=== PATIENT | female | born 1960 | race Caucasian/White ===

== ENCOUNTER 2017-04-17 10:22 | Inpatient (IN) | payer MEDICARE, SELFPAY ==
[2017-03-01 09:34] VITALS: BP 112/74; BMI 39.6
[2017-04-10 13:26] VITALS: BP 121/78; PULSE 66; RESP 18; TEMP 36.8; O2SAT 96; BMI 39.9
--- NOTE | 2017-04-10 13:43 | SDCEKG_ITS ---
Test Reason : Blood Pressure : / mmHG Vent. Rate : 067 BPM Atrial Rate : 067 BPM P-R Int : 122 ms QRS Dur : 082 ms QT Int : 434 ms P-R-T Axes : 037 034 044 degrees QTc Int : 458 ms Normal sinus rhythm Low voltage QRS Borderline ECG Confirmed by CELIO BORGES, ESTEVAN ([id number]), offline editor HERLINDA LEON ([id number]) on 04/12/2017 11:31:47 AM Referred By: Howard Ramachandran Confirmed By:ESTEVAN PICKENS MD
[2017-04-10 15:29] LABS: Anion Gap 8 (5-15); BUN 11 mg/dL (7-18); BUN/Creat Ratio 15.2 RATIO (10-20); Calcium,Total 8.8 mg/dL (8.5-10.1); Chloride 105 mmol/L (98-107); Creatinine, Serum 0.73 mg/dL (0.55-1.02); EST Glomerular Filtration Rate 87 mL/min (>60); Est Glom Filt Rate - Afr Amer 106 mL/min (>60); Estimated Creatinine Clearance 60.34 ml/min; Glucose 148 mg/dL (70-110); Potassium 3.7 mmol/L (3.5-5.1); Sodium Level 137 mmol/L (136-145); Thyroid Stim Hormone (TSH) 0.13 uIU/mL (0.358-3.74)
[2017-04-10 16:10] LABS: Hematocrit 35.9 % (37-47); Hemoglobin 11.5 g/dl (12.0-15.0); Mean Corpuscular Hgb 26.6 pg (27.0-32.0); Mean Corpuscular Volume 83.1 fL (81-99); Mean Platelet Vol. 10.6 fl (6.2-12.0); Platelet Count 310 K/mm3 (150-450); RBC Distribution Width CV 14.5 % (11.6-14.6); Red Blood Count 4.32 M/mm3 (4.2-5.4); White Blood Count 8.3 K/mm3 (4.4-11.0)
[2017-04-10 16:16] LABS: Scan Indicated on CBC? Y/N NO
[2017-04-17] VITALS (13 sets, daily range): BP systolic 100–140; BP diastolic 52–71; PULSE 63–88; RESP 16–18; TEMP 35.9–36.7; O2SAT 92–99; BMI 39.9
[2017-04-17] MEDS: oxyCODONE HCl Cr 10 MG Tablet PO (11:16)
--- NOTE | 2017-04-17 12:02 | RAD_ITS ---
XR Knee 1 or 2 Views INDICATION: POST OP LEFT KNEE COMPARISON: None TECHNIQUE: 2 views of the left knee FINDINGS: There is evidence of a left total knee arthroplasty with components in expected position. Air is seen in the joint space, compatible with recent surgery. RAD/Knee 1 or 2 Views IMPRESSION: Left total knee arthroplasty with components in expected position. at 1716 Reported and signed by: Jacqueline Hodge MD Electronically Signed: Jacqueline Hodge MD at 16:15 EST Tel , Service support ,
--- NOTE | 2017-04-17 12:10 | KNEE_PTH ---
PATIENT: JAMIE WALSH LOC: [facility] U#:[id number] AGE/SX: 56/F ROOM: [facility] RE04/17/[address]: Howard Ramachandran DO : 1960 BED: 1 DIS: 04/20/2017 SPEC #: [id number] RECD: 04/18/17 11:04 STATUS: CHANTELLE RANJAN #: [id number] JOAO: 04/17/17 12:[address]: Howard Ramachandran DEPT: SURGICAL PATHOLOGY RECD BY: Darian Park ENTERED: 04/18/17 12:29 SP TYPE: TOTAL KNEE OTHR DR: Dr. Dawn Rivera MD Tissues: Knee, NOS Procedures: Decalcification bone/plaque Surgery Specimen Level IV HEADER OPERATION: Total knee replacement PRE-OP DIAGNOSIS: Osteoarthritis left knee, chronic pain left knee TISSUE SUBMITTED: Bone and tissue left knee MICROSCOPIC DIAGNOSIS Bone and soft tissue of left knee, total knee resection: Degenerative joint disease. AM:steve 04/23/17 MICROSCOPIC DESCRIPTION Slides are reviewed. GROSS DESCRIPTION Received is one container designated bone and tissue left knee. The specimen consists of multiple fragments of sanchez-yellow bone measuring in aggregate 11 x 8 x 3 cm. No soft tissue is identified. A number of bony fragments contain articular surfaces consistent with tibial plateau and femoral condyle and displaying prominent osteophyte formation and bone erosion. Manager Knowledge sections are submitted in one cassette after decalcification. / SJ:steve 04/18/17 TC:5 CPT: 26196, 39068
[2017-04-17] MEDS: Cefazolin 2 GM in 0.9% Normal Saline 100 ML IV (14:40)
--- NOTE | 2017-04-17 15:54 | CPS ---
Pt not in room at this time. Incentive spirometer at bedside.
--- NOTE | 2017-04-17 16:35 | PCM.IMDPSTOP ---
Immediate Post-Op Note Date of Procedure: 04/17/17 Primary Surgeon/Physician: Howadr Ramachandran DO commercial attorney: Mely Whitehead Pre-Operative Diagnosis: Left knee osteoarthritis Post-Operative Diagnosis: Same as above Surgery/Procedure Performed:: Total knee arthroplasty using the [employer] triathlon system press-fit. Description of Surgical Findings:: See dictation Estimated Blood Loss: 50 Specimen's removed: Bone cuts Type of Anesthesia:: Spinal - Admit VTE Documentation VTE Present on Admission: No VTE Mechan Device Prophylaxis: SCD's, Knee High JOSE DE JESUS Hose VTE Pharm Prophylaxis ordered?: Yes
--- NOTE | 2017-04-17 16:36 | PCM.OPRPT ---
Report of Operation Date of Procedure: 04/17/17 Pre-Operative Diagnosis: Left knee osteoarthritis Post-Operative Diagnosis: Same as above Surgery/Procedure Performed:: Total knee arthroplasty using the [employer] triMatter and Formlon system press-fit. Description of Surgical Findings:: The 6-year-old female with recalcitrant left knee pain that failed nonoperative management to include NSAIDs activity modifications physical therapy and injections. Having failed conservative measures patient elected for operative intervention. Patient was medically cleared by pulmonology and cardiology. She was subsequent met in the holding area where a timeout took place to identify patient up procedure limb. Patient received 2 g Ancef. She had a well-placed tourniquet left proximal thigh after successful spinal anesthesia. She was then prepped and draped in usual fashion. Patient's left lower extremity was elevated Esmarch used for exsanguination tourniquet was increased to 250 mmHg for roughly 70 minutes. Patient had a standard midline incision made from the tibial tubercle moving proximally 2 fingerbreadths above the patella. She then underwent a standard medial parapatellar approach. She had a large return effusion. Patient had hypertrophic synovial fat pad in the suprapatellar pouch and inferiorly. These were resected using standard technique. Patient then underwent a small posterior medial release. At that point time the intramedullary elaina was placed for our distal femoral cut into the intramedullary canal using standard technique. We used 8 mm of difficult distal femoral resection with 6? of valgus cut. This was done using standard technique. We subsequently sized to a size 4. However the patient just did not look like a size 4. Initial cuts were performed. Reevaluated the anterior cortex and felt that a size 3 component would work very well. We cut to a size 3. This was done using standard technique. We then turned our attention to sizing the tibia. We elected to take 3 mm off the medial plateau. This was done using standard technique after appropriate alignment check. We used a CR technique. Standard cut was performed. Leg was then brought out to full extension and the remnant menisci were resected. Alignment elaina showed good mechanical axis and alignment at 0 30 and 90? with no flexion extension gaps. At that point time femoral component was placed along with the tibial tray which was a size 3. We had good overall mechanical alignment. 9 mm spacer was initially introduced felt a little bit of hyperextension [address] We had good overall alignment and tracking. Tibial tray was then seated using standard technique femoral component removed and keel punch placed. Secondary punch was also placed in anticipation of a press-fit component. We then turned our attention to the patella. It was small using smallest component which I believe was a 25. It measured roughly 21 mm in overall thickness we took off 9. Drill holes were then placed using standard technique again anticipation of a press-fit component. At that point time the wounds were copiously irrigated and excess debris was removed. We then placed our tibial tray impacted using standard technique. Femoral component was then impacted using standard technique again in a press-fit fashion. 9 mm spacer was introduced. We upsized to an 11 and rechecked overall mechanical alignment. We had no flexion extension gaps and good mechanical alignment at 0 30? and 90? of flexion extension. At that point time we were evaluated the patella. With a small blowout due to the small size of her patella and elected at that point time having already opened up the press-fit patella to undergo an cemented in place. The other components had Nathaniel been impacted using press-fit technique with good fixation. Please note that additional drill holes were placed throughout the cortex of the bone on the femoral and tibial side to help with bio ingrowth. Cement was then prepared the back table using standard technique. Patella component was then seated using standard technique to allow the cement to cure. We then moved the leg through a series of range of motion with excellent overall patella tracking and I did not feel lateral release was required. Any excess debris was removed and the wound was copiously irrigated. We then closed in a layer technique with the proximal third being closed with the leg in full extension of the distal two thirds closed with the knee in 30? of knee flexion. This was all done using #1 Vicryl. Soft tissues reapproximated with 2-0 Vicryl. Subcu Monocryl for the skin and associated Dermabond. She was then tested in the usual fashion. Tourniquet was let down after roughly 20 minutes. I was scrubbed and available time during our procedure. Patient be admitted to floor for 24 hours of IV antibiotics appropriate IV and p.o. pain medication. Early aggressive range of motion and DVT prophylaxis to include SCDs teds restarting her Plavix and aspirin on postop day 2. Patient will start aspirin tomorrow at 325 p.o. twice daily with appropriate GI prophylaxis. I was scrubbed and available all time for the operative procedure. There is no drains or complications. Implants included the [employer] triathlon press-fit total knee system with a 3 tibial tray 3 femur 11 mm CS Mckenzie 25 believe 25 tibia 29 patella button which was ultimately cemented. patient services assistant: Mely Whitehead Type of Anesthesia:: Spinal Specimen's removed: Bone cuts Estimated Blood Loss (mL): 50 Grafts/Implants Used: Striker triathlon press-fit 3 femur, 3 tibia, 11 mm CS, 25 patella button - Complications None - Admit VTE Documentation VTE Present on Admission: No VTE Mechan Device Prophylaxis: SCD's, Knee High JOSE DE JESUS Hose VTE Pharm Prophylaxis ordered?: Yes
[2017-04-17] MEDS: Senna/Docusate Sodium 1 Tablet 2 TABLET PO (19:59)
[2017-04-17] MEDS: Metoprolol Tartrate 50 MG Tablet PO (19:59)
[2017-04-17] MEDS: 0.9% NaCl Peripheral Flush Adult/Peds IV (20:01)
[2017-04-17] MEDS: Acetaminophen 500 MG Tablet 1000 MG PO (20:01)
[2017-04-17] MEDS: Atorvastatin Calcium 20 MG Tablet PO (20:01)
[2017-04-17] MEDS: Gabapentin 300 MG Capsule PO (20:01)
[2017-04-17] MEDS: Citalopram 20 MG Tablet PO (20:01)
[2017-04-17] MEDS: Cefazolin 1 GM/50 ML BAG IV (23:01)
[2017-04-18] VITALS (12 sets, daily range): BP systolic 95–127; BP diastolic 50–70; PULSE 71–86; RESP 16–18; TEMP 36.9–37.5; O2SAT 88–99
[2017-04-18] MEDS: Levothyroxine 100 MCG Tablet PO (06:23)
[2017-04-18] MEDS: Acetaminophen 500 MG Tablet 1000 MG PO ×3 (06:23→21:35)
[2017-04-18] MEDS: oxyCODONE 5 MG Tablet PO ×3 (06:23→17:54)
[2017-04-18] MEDS: Cefazolin 1 GM/50 ML BAG IV (06:35)
[2017-04-18 06:39] LABS: Hematocrit 30.7 % (37-47); Hemoglobin 9.5 g/dl (12.0-15.0); Mean Corp Hgb Conc 30.9 g/gl (32-36); Mean Corpuscular Hgb 26.5 pg (27.0-32.0); Mean Corpuscular Volume 85.5 fL (81-99); Mean Platelet Vol. 10.2 fl (6.2-12.0); Platelet Count 293 K/mm3 (150-450); RBC Distribution Width CV 14.9 % (11.6-14.6); RBC Distribution Width SD 44.3 fl (35.1-43.9); Red Blood Count 3.59 M/mm3 (4.2-5.4); White Blood Count 10.5 K/mm3 (4.4-11.0)
[2017-04-18 06:44] LABS: Scan Indicated on CBC? Y/N NO
[2017-04-18 06:45] LABS: Anion Gap 6 (5-15); BUN 16 mg/dL (7-18); BUN/Creat Ratio 18.5 RATIO (10-20); Calcium,Total 8.7 mg/dL (8.5-10.1); Chloride 106 mmol/L (98-107); Creatinine, Serum 0.86 mg/dL (0.55-1.02); EST Glomerular Filtration Rate 71 mL/min (>60); Est Glom Filt Rate - Afr Amer 86 mL/min (>60); Estimated Creatinine Clearance 51.22 ml/min; Glucose 131 mg/dL (74-106); Potassium 4.1 mmol/L (3.5-5.1); Sodium Level 142 mmol/L (136-145)
[2017-04-18] MEDS: Ondansetron 4 MG/2 ML Vial IV (06:45)
[2017-04-18] MEDS: 0.9% NaCl Peripheral Flush Adult/Peds IV (06:45)
--- NOTE | 2017-04-18 07:21 | PCM.PN.ORT ---
Subjective: Postop day 1 status post left total knee arthroplasty. No issues overnight. Await case management assistant evaluation for placement into the transitional care unit for custodial facility for rehab. Patient has resumed Plavix today and will start 325 mg of aspirin as her DVT prophylaxis. Vital signs remained stable. H&H is stable. No other fevers chills nausea vomiting chest pain or shortness of breath. Pain is currently controlled with the assistance of the pain blocks. - Physical Exam General: Alert, Oriented x3, Cooperative, No apparent distress Musculoskeletal: - - Dressing in place. No calf pain. Negative Homans. Range of motion 0-45 this early a.m. evaluation. Hardware well seated well-placed status post left total knee arthroplasty. Extensor mechanism intact. SCDs teds in place. H&H reviewed. Vital Signs Temp Pulse Resp BP Pulse Ox 98.4 F 71 18 103/50 L 99 04/18/17 02:19 04/18/17 04:00 04/18/17 02:19 04/18/17 02:19 04/18/17 02:19 Oxygen Flow Rate 2 Oxygen Delivery Method Nasal Cannula Weight: 204 lb 9.423 oz Body Mass Index (BMI) 39.9 Intake and Output for Last 24 Hours 04/16/17 04/17/17 04/18/17 23:59 23:59 23:59 Intake Total 1400 / 1400 688 / 688 Output Total 400 / 400 Balance 1400 / 1400 288 / 288 Laboratory Tests Past 24 Hrs 04/18/17 04/18/17 06:10 06:10 WBC 10.5 RBC 3.59 L Hgb 9.5 L Hct 30.7 L MCV 85.5 MCH 26.5 L MCHC 30.9 L RDW 14.9 H RDW Differential 44.3 H Plt Count 293 MPV 10.2 Sodium 142 Potassium 4.1 Chloride 106 Carbon Dioxide 30.0 Anion Gap 6 BUN 16 Creatinine 0.86 Estim Creat Clear Calc 51.22 Est GFR (MDRD) Af Amer 86 Est GFR (MDRD) Non-Af 71 BUN/Creatinine Ratio 18.5 Glucose 131 H Calcium 8.7 Assessment/Plan S1: Status post left total knee arthroplasty for osteoarthritis. History of cardiac stent placement. Plan: We will resume Plavix and change dosage of aspirin to 325 p.o. daily. GI prophylaxis has been added. Case management has been consulted for placement into the transitional care unit for her custodial facility rehab. Aggressive range of motion requested. Continue with aggressive pulmonary toileting as the patient is a history of pulmonary issues. If there are issues please contact me and I will contact Dr. Mane from the pulmonology service who is aware that the patient is in-house and if he is needed he is available. Any issues please contact me.
--- NOTE | 2017-04-18 07:54 | CASEMGMT ---
Social Work Note Referral from attending physician that pt is requesting placement at TCU. Will evaluate for appropriateness after PT/OT evaluations. Placed call to [facility] to see if there was any bed availability on Sunday. Will await a return phone call indicating bed availability. Plan: PATRIC DevineW
--- NOTE | 2017-04-18 08:52 | CASEMGMT ---
Social Work Note Call from [facility] stating that she is able to accept the pt. Transfer to ECF forms placed on chart for physician to complete. Face to face with the pt to discuss discharge planning and updated that TCU can accept on Sunday. Understanding expressed SW to continue to follow and assist with discharge planning. Plan: TCU for rehabilitation. PATRIC KowalskiW
[2017-04-18] MEDS: Furosemide 40 MG Tablet PO (09:36)
[2017-04-18] MEDS: Gabapentin 300 MG Capsule PO ×2 (09:36→17:53)
[2017-04-18] MEDS: Aspirin E.C. 325 MG Tablet PO ×2 (09:36→17:53)
[2017-04-18] MEDS: Senna/Docusate Sodium 1 Tablet 2 TABLET PO ×2 (09:37→21:35)
[2017-04-18] MEDS: Clopidogrel Bisulfate 75 MG Tablet PO (09:37)
[2017-04-18] MEDS: Magnesium Oxide 400 MG Tablet PO (09:37)
[2017-04-18] MEDS: Metoprolol Tartrate 50 MG Tablet PO ×2 (09:37→21:36)
[2017-04-18] MEDS: Famotidine 20 MG Tablet PO (09:37)
--- NOTE | 2017-04-18 09:52 | NURSING ---
pt c/o left calf pain to ot/pt staff-pt left calf is warmer and pt has + zeeshan sign, dr gee notified and he ordered an venous doppler lle but siggested to proceed with therapy until results
--- NOTE | 2017-04-18 09:53 | VDLE_ITS ---
Reason For Study: LEG SWELLING S/P tkr 2/6 Procedure LEFT Exam performed portable in patient room. GSV is normal. A preliminary report was called and/or faxed CFV is compressible, spontaneous, phasic, to [facility] nurse. competent, and demonstrates normal augmentation. FV is compressible, spontaneous, phasic, competent and demonstrates normal augmentation. POP V is compressible, spontaneous, phasic, competent and demonstrates normal augmentation. T/P Trunk is compressible. PTV is compressible. LT PerV is compressible. Interpretation Summary Deep veins of the left lower extremity are patent and compressible segmentally. There is no evidence of left lower extremity deep vein thrombosis. Valvular competence appears intact within the proximal deep venous system on the left . The left greater saphenous vein appears patent and compressible segmentally. Ordering Physician: Howard Ramachandran Referring Physician: Howard Ramachandran
[2017-04-18] MEDS: Citalopram 20 MG Tablet PO (21:35)
[2017-04-18] MEDS: Atorvastatin Calcium 20 MG Tablet PO (21:35)
[2017-04-19] VITALS (10 sets, daily range): BP systolic 104–145; BP diastolic 60–69; PULSE 74–103; RESP 16–18; TEMP 36.5–37.2; O2SAT 92–96
[2017-04-19] MEDS: oxyCODONE 5 MG Tablet PO ×2 (03:38→13:56)
[2017-04-19] MEDS: Acetaminophen 500 MG Tablet 1000 MG PO ×3 (05:44→21:54)
[2017-04-19] MEDS: Levothyroxine 100 MCG Tablet PO (05:44)
[2017-04-19 06:18] LABS: Hematocrit 28.9 % (37-47); Hemoglobin 9.1 g/dl (12.0-15.0); Mean Corp Hgb Conc 31.5 g/gl (32-36); Mean Corpuscular Hgb 26.7 pg (27.0-32.0); Mean Corpuscular Volume 84.8 fL (81-99); Mean Platelet Vol. 10.1 fl (6.2-12.0); Platelet Count 282 K/mm3 (150-450); RBC Distribution Width CV 14.9 % (11.6-14.6); RBC Distribution Width SD 44.5 fl (35.1-43.9); Red Blood Count 3.41 M/mm3 (4.2-5.4); Scan Indicated on CBC? Y/N NO; White Blood Count 10.2 K/mm3 (4.4-11.0)
[2017-04-19 06:51] LABS: Anion Gap 9 (5-15); BUN 15 mg/dL (7-18); BUN/Creat Ratio 16.7 RATIO (10-20); Calcium,Total 8.5 mg/dL (8.5-10.1); Chloride 102 mmol/L (98-107); EST Glomerular Filtration Rate 68 mL/min (>60); Est Glom Filt Rate - Afr Amer 83 mL/min (>60); Estimated Creatinine Clearance 48.94 ml/min; Glucose 130 mg/dL (74-106); Potassium 3.7 mmol/L (3.5-5.1); Sodium Level 139 mmol/L (136-145)
--- NOTE | 2017-04-19 07:48 | PCM.PN.ORT ---
Subjective: Postop day 2 status post left total knee arthroplasty. Patient doing well today. We are awaiting approval for transitional care unit transition. Otherwise tolerating regular diet. Patient still has some calf pain but her ultrasound was negative. Patient needs a work on stretching out the calf muscle. Some of the soreness potentially could be from the leg bar[place]ona during the procedure. No other shortness of breath noted at this time. - Physical Exam General: Alert, Oriented x3, Cooperative, No apparent distress Musculoskeletal: - - Alert and oriented ?3 in no acute distress. Appropriate eye contact and affect. Otherwise distal vascular intact. Patient will dorsiflex the foot although painful. Otherwise grossly the EHL anterior peroneals 5 out of 5. H&H is stable. Vital Signs Temp Pulse Resp BP Pulse Ox 98.8 F 87 18 110/60 94 04/19/17 03:27 04/19/17 03:58 04/19/17 03:27 04/19/17 03:27 04/19/17 03:27 Oxygen Flow Rate 2 Oxygen Delivery Method CPAP Weight: 204 lb 9.423 oz Body Mass Index (BMI) 39.9 Intake and Output for Last 24 Hours 04/17/17 04/18/17 04/19/17 23:59 23:59 23:59 Intake Total 1400 / 1400 688 / 688 700 / 700 Output Total 400 / 400 Balance 1400 / 1400 288 / 288 700 / 700 Laboratory Tests Past 24 Hrs 04/19/17 04/19/17 05:48 05:48 WBC 10.2 RBC 3.41 L Hgb 9.1 L Hct 28.9 L MCV 84.8 MCH 26.7 L MCHC 31.5 L RDW 14.9 H RDW Differential 44.5 H Plt Count 282 MPV 10.1 Sodium 139 Potassium 3.7 Chloride 102 Carbon Dioxide 28.0 Anion Gap 9 BUN 15 Creatinine 0.90 Estim Creat Clear Calc 48.94 Est GFR (MDRD) Af Amer 83 Est GFR (MDRD) Non-Af 68 BUN/Creatinine Ratio 16.7 Glucose 130 H Calcium 8.5 Assessment/Plan Assessment: Postop day 2 status post left total knee arthroplasty doing well. Plan: At this point time I have spoken with Dr. Blair about the patient's Plavix usage. We will hold the Plavix and continue with the aspirin 325 p.o. twice daily this should be not only cardioprotective but also be used as her DVT prophylaxis. Continue with SCDs teds early aggressive range of motion. Encourage the patient to start working on ankle pumps and towel stretches otherwise she will be at risk for getting a blood clot. We will continue to follow. Anticipate discharge to transitional care unit tomorrow. Any issues please contact me.
[2017-04-19] MEDS: Aspirin E.C. 325 MG Tablet PO ×2 (08:11→16:32)
[2017-04-19] MEDS: Senna/Docusate Sodium 1 Tablet 2 TABLET PO ×2 (08:11→21:54)
[2017-04-19] MEDS: Famotidine 20 MG Tablet PO (08:12)
[2017-04-19] MEDS: Gabapentin 300 MG Capsule PO ×2 (08:12→16:32)
[2017-04-19] MEDS: Magnesium Oxide 400 MG Tablet PO (08:12)
[2017-04-19] MEDS: Metoprolol Tartrate 50 MG Tablet PO ×2 (08:13→21:54)
[2017-04-19] MEDS: Furosemide 40 MG Tablet PO (08:13)
[2017-04-19] MEDS: Ascorbic Acid 500 MG Tablet 1000 MG PO (09:19)
[2017-04-19] MEDS: Multivitamins,Therapeutic Tablet 1 TABLET PO (09:20)
[2017-04-19] MEDS: Iron Polysaccharide Complex 150 MG CAPSULE PO (09:20)
[2017-04-19] MEDS: Atorvastatin Calcium 20 MG Tablet PO (21:54)
[2017-04-19] MEDS: Citalopram 20 MG Tablet PO (21:54)
[2017-04-20 02:30] VITALS: BP 140/68; PULSE 86; RESP 16; TEMP 37.3; O2SAT 96
[2017-04-20] MEDS: Acetaminophen 500 MG Tablet 1000 MG PO ×2 (05:44→13:17)
[2017-04-20] MEDS: Levothyroxine 100 MCG Tablet PO (05:44)
[2017-04-20 06:09] LABS: Hematocrit 27.2 % (37-47); Hemoglobin 8.3 g/dl (12.0-15.0); Mean Corp Hgb Conc 30.5 g/gl (32-36); Mean Corpuscular Hgb 25.9 pg (27.0-32.0); Mean Corpuscular Volume 84.7 fL (81-99); Mean Platelet Vol. 9.8 fl (6.2-12.0); Platelet Count 262 K/mm3 (150-450); RBC Distribution Width CV 14.8 % (11.6-14.6); RBC Distribution Width SD 44.4 fl (35.1-43.9); Red Blood Count 3.21 M/mm3 (4.2-5.4); White Blood Count 9.6 K/mm3 (4.4-11.0)
[2017-04-20 06:15] LABS: Scan Indicated on CBC? Y/N NO
[2017-04-20 06:44] LABS: Anion Gap 9 (5-15); BUN 10 mg/dL (7-18); BUN/Creat Ratio 13.9 RATIO (10-20); Calcium,Total 8.5 mg/dL (8.5-10.1); Chloride 103 mmol/L (98-107); Creatinine, Serum 0.72 mg/dL (0.55-1.02); EST Glomerular Filtration Rate 88 mL/min (>60); Est Glom Filt Rate - Afr Amer 106 mL/min (>60); Estimated Creatinine Clearance 61.18 ml/min; Glucose 115 mg/dL (74-106); Potassium 3.2 mmol/L (3.5-5.1); Sodium Level 140 mmol/L (136-145)
[2017-04-20 08:14] VITALS: PULSE 77
[2017-04-20] MEDS: Metoprolol Tartrate 50 MG Tablet PO (08:14)
[2017-04-20] MEDS: Ascorbic Acid 500 MG Tablet 1000 MG PO (08:14)
[2017-04-20] MEDS: Furosemide 40 MG Tablet PO (08:14)
[2017-04-20] MEDS: Aspirin E.C. 325 MG Tablet PO (08:14)
[2017-04-20] MEDS: Multivitamins,Therapeutic Tablet 1 TABLET PO (08:14)
[2017-04-20] MEDS: Gabapentin 300 MG Capsule PO (08:14)
[2017-04-20] MEDS: Senna/Docusate Sodium 1 Tablet 2 TABLET PO (08:15)
[2017-04-20] MEDS: Famotidine 20 MG Tablet PO (08:15)
[2017-04-20] MEDS: Magnesium Oxide 400 MG Tablet PO (08:15)
[2017-04-20] MEDS: Iron Polysaccharide Complex 150 MG CAPSULE PO (08:15)
[2017-04-20 08:17] VITALS: BP 97/57; PULSE 77; RESP 16; TEMP 36.5; O2SAT 94
--- NOTE | 2017-04-20 08:43 | PCM.DC.BLA ---
Discharge Summary Date of Admission: 04/17/17 Date of Discharge: 04/20/17 Summary: 56-year-old female status post left total knee arthroplasty. Patient was met in the floor for 24 hours of IV antibiotics appropriate IV and p.o. pain medication. DVT prophylaxis included SCDs teds early aggressive range of motion and 325 p.o. twice daily of aspirin with GI prophylaxis. Patient tolerated regular diet was amatory physical therapy. No other sniffing fevers chills nausea vomiting chest pain or shortness of breath. [facility] for [facility] and will move on to the transitional care unit at this point time. Assessment: Postop day 3 status post left total knee arthroplasty. Doing well. Plan: At this point time will continue with aspirin for DVT prophylaxis. Patient will hold her Plavix for the next 14 days. If the patient were to become symptomatic with GI upset transition to one aspirin per day but continue with GI prophylaxis either H2 mayo or PPI. I have added cater to the patient's medications as her potassium was down slightly. She can continue with 10 mEq p.o. twice daily. The patient remains in the transitional care unit over the next 2 weeks I will follow her there and do her wound check at that time. Her dressing remains in place 5-7 days from date of surgery. The patient may shower at this time. Do not submerge wound. Continue with aggressive range of motion and calf pumps. Continue with JOSE DE JESUS hose if available on the floor. Any issues please contact me.
--- NOTE | 2017-04-20 10:21 | CASEMGMT ---
Social Work Physician discharged pt on this date. Message left for [facility] in [facility] that pt is ready for d/c and orders faxed. Met with pt in room and pt made aware of d/c today. Pt is aware and agreeable to transfer to TCU today. Pt states her is also aware and does not need called. RN notified that she can arrange for transfer time. No further SW needs. Plan: TCU today [facility] Elizabeth
[2017-04-20 11:03] VITALS: BP 116/61; PULSE 68; RESP 16; TEMP 37; O2SAT 94
--- NOTE | 2017-04-20 14:33 | NURSING ---
called report to tcu. waiting on room to be cleaned.
== END 2017-04-20 15:18 | disposition skilled nursing facility (03) | DRG 470 ==
LOC: ACINP 10:23 → MS3 12:34
PROVIDERS: Anesthesiology; Admitting Provider Orthopaedic Surgery; Family Provider Family Medicine; PCP Family Medicine; Visit Provider Orthopaedic Surgery
PROC: 0SRD0J9 Replacement of Left Knee Joint with Synthetic Substitute, Cemented, Open Approach (ICD-10-PCS; CPT 27447; principal; 2017-04-17 11:45)
DX: M17.12 Unilateral primary osteoarthritis, left knee (principal); E66.01 Morbid (severe) obesity due to excess calories; I27.20 Pulmonary hypertension, unspecified; F17.211 Nicotine dependence, cigarettes, in remission; I10 Essential (primary) hypertension; E78.5 Hyperlipidemia, unspecified; J44.9 Chronic obstructive pulmonary disease, unspecified; G47.30 Sleep apnea, unspecified; K21.9 Gastro-esophageal reflux disease without esophagitis; E03.9 Hypothyroidism, unspecified; Z79.899 Other long term (current) drug therapy; Z68.39 Body mass index [BMI] 39.0-39.9, adult
CPT/HCPCS: 36415; 73560; 80048; 84443; 85027; 87081; 88305; 88311; 93005; 93971; 94640; 97110; 97116; 97162; 97166; 97530; 97535; J7120; A4216; J2405

== ENCOUNTER 2017-04-20 15:23 | Inpatient (IN) | payer MEDICARE, SELFPAY ==
[2017-04-20 11:03] VITALS: BP 116/61
[2017-04-20 15:30] VITALS: BP 111/58; PULSE 75; RESP 18; TEMP 36.9; O2SAT 91
--- NOTE | 2017-04-20 15:39 | NURSING ---
pt arrived from [facility] via bed lt total knee replacement
[2017-04-20 16:12] VITALS: BMI 34.7
[2017-04-20 16:13] VITALS: BMI 34.7
--- NOTE | 2017-04-20 16:27 | PCM.HP.STD ---
Problem List (1) Osteoarthritis of left knee Status: Chronic (2) Coronary artery disease Status: Chronic (3) Tobacco abuse Status: Chronic (4) Back pain Status: Chronic (5) Hypertension Status: Chronic (6) Hyperlipidemia Status: Chronic (7) Non-ST elevated myocardial infarction (non-STEMI) Status: Chronic (8) Hypothyroidism Status: Chronic (9) GERD (gastroesophageal reflux disease) Status: Chronic History of Present Illness Date of Admission: 04/20/17 Chief Complaint: Here for rehabilitation, strengthening, prior to discharge home alone. The patient is a 56 year old Female with below past medical history hospitalized for left total knee arthroplasty 04/17/[address] Ramachandran. 04/18/2017 Doppler ultrasound of legs negative for DVT. 04/20/2017 Admit to TCU for rehabilitation, strengthening, prior to discharge home alone. Past Medical History Past Medical History (Chronic Problems): Chronic Problems (Last Reviewed 03/21/17 @ 16:28 by Tere Diaz) Osteoarthritis of left knee (Chronic) Coronary artery disease (Chronic) Tobacco abuse (Chronic) Back pain (Chronic) Pulmonary hypertension (Chronic) RVSP 31 mmHg Stage 2 moderate COPD by GOLD classification (Chronic) FEV1 65% Morbid obesity (Chronic) Depression (Chronic) Hypertension (Chronic) Hyperlipidemia (Chronic) Nicotine dependence, cigarettes, in remission (Chronic) Other peripheral vascular disease (Chronic) Fatigue (Chronic) Non-ST elevated myocardial infarction (non-STEMI) (Chronic) Long-term use of high-risk medication (Chronic) Chest pain (Chronic) OA (osteoarthritis) of knee (Chronic) PALOMARES (dyspnea on exertion) (Chronic) Hypersomnia (Chronic) Sleep apnea (Chronic) Supraventricular tachycardia (Chronic) Hypothyroidism (Chronic) GERD (gastroesophageal reflux disease) (Chronic) Chronic back pain (Chronic) Allergies No Known Allergies Allergy (Verified 04/10/17 13:17) Home Medications: Ambulatory Orders Medication Instructions Recorded Levothyroxine [Synthroid] 100 mcg PO DAILY 04/17/14 Magnesium Oxide [Mag-Ox 400] 400 mg PO DAILY 04/17/14 Metoprolol Tartrate [Lopressor 50 mg PO BID 04/17/14 (beta mayo)] Simvastatin [Zocor] 40 mg PO QHS 04/17/14 Gabapentin [Gralise] 300 mg PO BID 04/29/15 Albuterol Inhaler [Ventolin Hfa] 1 - 2 puff INHALATION Q4H PRN PRN 07/11/16 Citalopram [Celexa] 20 mg PO QHS 07/11/16 Nitroglycerin [Nitrostat] 0.4 mg SUBLINGUAL Q5M PRN #1 bottle 01/04/17 furosemide 40 mg tablet 40 mg PO QDAY 02/26/17 Glycopyrrolate/Formoterol Fum 2 puff INHALATION BID 04/10/17 [Bevespi Aerosphere Inhaler] Docusate Sodium [Colace] 100 mg PO BID PRN PRN #10 cap 04/18/17 Oxycodone HCl/Acetaminophen 1 - 2 tab PO Q4H PRN PRN #60 tab 04/18/17 [Percocet 5/325] ProMETHAzine [Phenergan] 25 mg PO Q4H PRN PRN #10 tab 04/18/17 Aspirin E.C. [Ecotrin] 325 mg PO BID 04/20/17 Famotidine [Pepcid] 20 mg PO BID 04/20/17 Surgical History: total knee arthroplasty - Left., - - Tubal ligation, left knee surgery. 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 Lives: Spouse/ Significant Other Smoking Status: Former smoker Tobacco Use: Non-smoker Alcohol: None Drugs: None - *Family History Maternal History Items: No pertinent history Paternal History Items: No pertinent history Review of Systems Constitutional: Denies: Chills, Fever, Weight Change HEENT: Denies: Head Aches, Sinus Congestion, Sinus Drainage Cardiovascular: Denies: Chest Pain, Palpitations Respiratory: Denies: Cough, Shortness of breath at rest, Sputum production Gastrointestinal: Denies: Abdominal Pain, Nausea, Vomiting Genitourinary: Denies: Dysuria Musculoskeletal: Denies: Joint Pain, Joint Tenderness Skin: Denies: Rash, Wounds Neurological: Denies: Numbness, Tingling, Focal weakness Psychiatric: Denies: Anxiety, Depression, Homicidal Ideations, Suicidal Ideations Hematologic/ Lymphatic: Denies: Easy Bruising, Easy Bleeding VTE Information - Inpt Only VTE Present on Admission: No VTE Mechan Device Prophylaxis: SCD's, Knee High JOSE DE JESUS Hose VTE Pharm Prophylaxis ordered?: Yes - Physical Exam General: Alert, Oriented x3, Cooperative HEENT: Atraumatic, PERRLA, EOMI, Normocephalic Neck: Supple, No JVD, Negative Carotid Bruits Lungs: Clear to auscultation, Normal air movement Cardiovascular: Regular rate, No murmurs Abdomen: Bowel Sounds Present, Soft, Non Tender Extremities: No edema, Capillary Refill Less than 3 Seconds Skin: No rashes, No breakdown, Incision - Left knee clean, dry, intact. Musculoskeletal: No Tenderness to Palpation of Joints or Extremities Neurological: Cranial nerves II-XII grossly intact Psych/Mental Status: Normal Affect, Appropriate Vital Signs BP 116/61 04/20/17 11:03 Weight: 94.149 kg Body Mass Index (BMI) 34.7 Assessment/Plan 56 year old female with below past medical history hospitalized for left total knee arthroplasty with Dr. Ramachandran 04/17/2017, admitted to TCU for rehabilitation, strengthening, prior to discharge home alone. Debility - PT/OT. Pain - Tylenol 1000MG Q8H PRN mild pain, Oxycodone 10MG Q4H severe pain. Bowel - Miralax 17GM daily, Senna/colace 2 tablets BID, Dulcolax 10MG PO daily PRN. Pneumonia vaccination - Administer Prevnar 13 and/or Pneumovax 23 as necessary. DVT prophylaxis - Aspirin 325MG BID. COPD - Glycopyrrolate 2 puffs BID, Albuterol 1-2 Puff Q4H PRN. Depression - Citalopram 20MG QHS. GERD - Famotidine 20MG BID. Edema - Lasix 40MG daily. Neuropathic pain - Gabapentin 300MG BID. Hypothyroidism - Levothyroxine 100MCG daily. Hypomagnesemia - Magnesium Oxide 400MG daily. Coronary Artery Disease status post stent - Metoprolol 50MG BID, NTG 0.4MG as needed. Nausea - Phenergan 25MG Q4H PRN. Hyperlipidemia - Atorvastatin 40MG QHS.
--- NOTE | 2017-04-20 16:41 | HP.PCM_ITS ---
Problem List (1) Osteoarthritis of left knee Status: Chronic (2) Coronary artery disease Status: Chronic (3) Tobacco abuse Status: Chronic (4) Back pain Status: Chronic (5) Hypertension Status: Chronic (6) Hyperlipidemia Status: Chronic (7) Non-ST elevated myocardial infarction (non-STEMI) Status: Chronic (8) Hypothyroidism Status: Chronic (9) GERD (gastroesophageal reflux disease) Status: Chronic History of Present Illness Date of Admission: 04/20/17 Chief Complaint: Here for rehabilitation, strengthening, prior to discharge home alone. The patient is a 56 year old Female with below past medical history hospitalized for left total knee arthroplasty 04/17/[address] Ramachandran. 04/18/2017 Doppler ultrasound of legs negative for DVT. 04/20/2017 Admit to TCU for rehabilitation, strengthening, prior to discharge home alone. Past Medical History Past Medical History (Chronic Problems): Chronic Problems (Last Reviewed 03/21/17 @ 16:28 by Tere Diaz) Osteoarthritis of left knee (Chronic) Coronary artery disease (Chronic) Tobacco abuse (Chronic) Back pain (Chronic) Pulmonary hypertension (Chronic) RVSP 31 mmHg Stage 2 moderate COPD by GOLD classification (Chronic) FEV1 65% Morbid obesity (Chronic) Depression (Chronic) Hypertension (Chronic) Hyperlipidemia (Chronic) Nicotine dependence, cigarettes, in remission (Chronic) Other peripheral vascular disease (Chronic) Fatigue (Chronic) Non-ST elevated myocardial infarction (non-STEMI) (Chronic) Long-term use of high-risk medication (Chronic) Chest pain (Chronic) OA (osteoarthritis) of knee (Chronic) PALOMARES (dyspnea on exertion) (Chronic) Hypersomnia (Chronic) Sleep apnea (Chronic) Supraventricular tachycardia (Chronic) Hypothyroidism (Chronic) GERD (gastroesophageal reflux disease) (Chronic) Chronic back pain (Chronic) Allergies No Known Allergies Allergy (Verified 04/10/17 13:17) Home Medications: Ambulatory Orders Medication Instructions Recorded Levothyroxine [Synthroid] 100 mcg PO DAILY 04/17/14 Magnesium Oxide [Mag-Ox 400] 400 mg PO DAILY 04/17/14 Metoprolol Tartrate [Lopressor 50 mg PO BID 04/17/14 (beta mayo)] Simvastatin [Zocor] 40 mg PO QHS 04/17/14 Gabapentin [Gralise] 300 mg PO BID 04/29/15 Albuterol Inhaler [Ventolin Hfa] 1 - 2 puff INHALATION Q4H PRN PRN 07/11/16 Citalopram [Celexa] 20 mg PO QHS 07/11/16 Nitroglycerin [Nitrostat] 0.4 mg SUBLINGUAL Q5M PRN #1 bottle 01/04/17 furosemide 40 mg tablet 40 mg PO QDAY 02/26/17 Glycopyrrolate/Formoterol Fum 2 puff INHALATION BID 04/10/17 [Bevespi Aerosphere Inhaler] Docusate Sodium [Colace] 100 mg PO BID PRN PRN #10 cap 04/18/17 Oxycodone HCl/Acetaminophen 1 - 2 tab PO Q4H PRN PRN #60 tab 04/18/17 [Percocet 5/325] ProMETHAzine [Phenergan] 25 mg PO Q4H PRN PRN #10 tab 04/18/17 Aspirin E.C. [Ecotrin] 325 mg PO BID 04/20/17 Famotidine [Pepcid] 20 mg PO BID 04/20/17 Surgical History: total knee arthroplasty - Left., - - Tubal ligation, left knee surgery. 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 Lives: Spouse/ Significant Other Smoking Status: Former smoker Tobacco Use: Non-smoker Alcohol: None Drugs: None - *Family History Maternal History Items: No pertinent history Paternal History Items: No pertinent history Review of Systems Constitutional: Denies: Chills, Fever, Weight Change HEENT: Denies: Head Aches, Sinus Congestion, Sinus Drainage Cardiovascular: Denies: Chest Pain, Palpitations Respiratory: Denies: Cough, Shortness of breath at rest, Sputum production Gastrointestinal: Denies: Abdominal Pain, Nausea, Vomiting Genitourinary: Denies: Dysuria Musculoskeletal: Denies: Joint Pain, Joint Tenderness Skin: Denies: Rash, Wounds Neurological: Denies: Numbness, Tingling, Focal weakness Psychiatric: Denies: Anxiety, Depression, Homicidal Ideations, Suicidal Ideations Hematologic/ Lymphatic: Denies: Easy Bruising, Easy Bleeding VTE Information - Inpt Only VTE Present on Admission: No VTE Mechan Device Prophylaxis: SCD's, Knee High JOSE DE JESUS Hose VTE Pharm Prophylaxis ordered?: Yes - Physical Exam General: Alert, Oriented x3, Cooperative HEENT: Atraumatic, PERRLA, EOMI, Normocephalic Neck: Supple, No JVD, Negative Carotid Bruits Lungs: Clear to auscultation, Normal air movement Cardiovascular: Regular rate, No murmurs Abdomen: Bowel Sounds Present, Soft, Non Tender Extremities: No edema, Capillary Refill Less than 3 Seconds Skin: No rashes, No breakdown, Incision - Left knee clean, dry, intact. Musculoskeletal: No Tenderness to Palpation of Joints or Extremities Neurological: Cranial nerves II-XII grossly intact Psych/Mental Status: Normal Affect, Appropriate Vital Signs BP 116/61 04/20/17 11:03 Weight: 94.149 kg Body Mass Index (BMI) 34.7 Assessment/Plan 56 year old female with below past medical history hospitalized for left total knee arthroplasty with Dr. Ramachandran 04/17/2017, admitted to TCU for rehabilitation, strengthening, prior to discharge home alone. * Debility - PT/OT. * Pain - Tylenol 1000MG Q8H PRN mild pain, Oxycodone 10MG Q4H severe pain. * Bowel - Miralax 17GM daily, Senna/colace 2 tablets BID, Dulcolax 10MG PO daily PRN. * Pneumonia vaccination - Administer Prevnar 13 and/or Pneumovax 23 as necessary. * DVT prophylaxis - Aspirin 325MG BID. * COPD - Glycopyrrolate 2 puffs BID, Albuterol 1-2 Puff Q4H PRN. * Depression - Citalopram 20MG QHS. * GERD - Famotidine 20MG BID. * Edema - Lasix 40MG daily. * Neuropathic pain - Gabapentin 300MG BID. * Hypothyroidism - Levothyroxine 100MCG daily. * Hypomagnesemia - Magnesium Oxide 400MG daily. * Coronary Artery Disease status post stent - Metoprolol 50MG BID, NTG 0.4MG as needed. * Nausea - Phenergan 25MG Q4H PRN. * Hyperlipidemia - Atorvastatin 40MG QHS.
[2017-04-20] MEDS: Famotidine 20 MG Tablet PO (17:43)
[2017-04-20] MEDS: Gabapentin 300 MG Capsule PO (17:43)
[2017-04-20] MEDS: Senna/Docusate Sodium 1 Tablet 2 TABLET PO (17:43)
[2017-04-20] MEDS: Aspirin E.C. 325 MG Tablet PO (17:43)
[2017-04-20 17:44] VITALS: BP 111/58; PULSE 75
[2017-04-20] MEDS: Metoprolol Tartrate 50 MG Tablet PO (17:44)
[2017-04-20] MEDS: oxyCODONE 5 MG Tablet 10 MG PO (21:27)
[2017-04-20] MEDS: Atorvastatin Calcium 20 MG Tablet PO (21:29)
[2017-04-20] MEDS: Citalopram 20 MG Tablet PO (21:29)
[2017-04-21 06:25] VITALS: PULSE 82; RESP 18; O2SAT 93
[2017-04-21] MEDS: oxyCODONE 5 MG Tablet 10 MG PO ×2 (06:25→11:16)
[2017-04-21 06:26] VITALS: BP 136/71; PULSE 80
[2017-04-21] MEDS: Furosemide 40 MG Tablet PO (06:26)
[2017-04-21] MEDS: Famotidine 20 MG Tablet PO ×2 (06:26→17:45)
[2017-04-21] MEDS: Magnesium Oxide 400 MG Tablet PO (06:26)
[2017-04-21] MEDS: Senna/Docusate Sodium 1 Tablet 2 TABLET PO (06:26)
[2017-04-21] MEDS: Levothyroxine 100 MCG Tablet PO (06:26)
[2017-04-21] MEDS: Metoprolol Tartrate 50 MG Tablet PO ×2 (06:26→17:45)
[2017-04-21 07:01] LABS: Absolute Lymphocyte Count 1.91 X10^3/ul (0.83-4.51); Absolute Neutrophil Count 6.2 X10^3/uL (2.0-7.7); Basophil# 0.01 X10^3/uL; Basophil% 0.1 % (0-1); Eosinophil# 0.18 X10^3/uL; Hemoglobin 8.5 g/dl (12.0-15.0); Lymphocyte # 1.91 X10^3/ul (4.0); Lymphocyte % 21.4 % (19-41); Mean Corp Hgb Conc 30.4 g/gl (32-36); Mean Corpuscular Hgb 25.6 pg (27.0-32.0); Mean Corpuscular Volume 84.3 fL (81-99); Mean Platelet Vol. 9.7 fl (6.2-12.0); Monocyte# 0.59 X10^3/uL; Monocyte% 6.6 % (0-10); Neutrophil % 69.6 % (47-70); POSITIVE COUNT NO; POSITIVE DIFFERENTIAL NO; POSITIVE MORPHOLOGY NO; Platelet Count 295 K/mm3 (150-450); RBC Distribution Width CV 15.3 % (11.6-14.6); RBC Distribution Width SD 47.3 fl (35.1-43.9); Red Blood Count 3.32 M/mm3 (4.2-5.4); White Blood Count 8.9 K/mm3 (4.4-11.0)
[2017-04-21 07:23] LABS: Anion Gap 8 (5-15); BUN 10 mg/dL (7-18); BUN/Creat Ratio 15.8 RATIO (10-20); Calcium,Total 8.6 mg/dL (8.5-10.1); Chloride 103 mmol/L (98-107); Creatinine, Serum 0.63 mg/dL (0.55-1.02); EST Glomerular Filtration Rate 102 mL/min (>60); Est Glom Filt Rate - Afr Amer 124 mL/min (>60); Estimated Creatinine Clearance 84.05 ml/min; Glucose 110 mg/dL (74-106); Potassium 2.9 mmol/L (3.5-5.1); Sodium Level 141 mmol/L (136-145)
[2017-04-21] MEDS: Gabapentin 300 MG Capsule PO ×2 (07:53→17:45)
[2017-04-21] MEDS: Aspirin E.C. 325 MG Tablet PO ×2 (07:53→17:45)
[2017-04-21] MEDS: Tuberculin,Purif.prot.deriv. 50 TU/ML Vial 5 ML ID (12:26)
[2017-04-21] MEDS: Acetaminophen 500 MG Tablet 1000 MG PO ×2 (12:30→22:33)
--- NOTE | 2017-04-21 13:36 | PCM.PN.RX ---
<Kevin Blanton - Last Filed: 04/21/17 13:36> Progress Note - Pharmacy Subjective: [] TCU Admission Objective: Allergies No Known Allergies Allergy (Verified 04/10/17 13:17) Home Medications Medication Instructions Recorded Levothyroxine [Synthroid] 100 mcg PO DAILY 04/17/14 Magnesium Oxide [Mag-Ox 400] 400 mg PO DAILY 04/17/14 Metoprolol Tartrate [Lopressor 50 mg PO BID 04/17/14 (beta allan)] Simvastatin [Zocor] 40 mg PO QHS 04/17/14 Gabapentin [Gralise] 300 mg PO BID 04/29/15 Albuterol Inhaler [Ventolin Hfa] 1 - 2 puff INHALATION Q4H PRN PRN 07/11/16 Citalopram [Celexa] 20 mg PO QHS 07/11/16 Nitroglycerin [Nitrostat] 0.4 mg SUBLINGUAL Q5M PRN #1 bottle 01/04/17 furosemide 40 mg tablet 40 mg PO QDAY 02/26/17 Glycopyrrolate/Formoterol Fum 2 puff INHALATION BID 04/10/17 [Bevespi Aerosphere Inhaler] Docusate Sodium [Colace] 100 mg PO BID PRN PRN #10 cap 04/18/17 Oxycodone HCl/Acetaminophen 1 - 2 tab PO Q4H PRN PRN #60 tab 04/18/17 [Percocet 5/325] ProMETHAzine [Phenergan] 25 mg PO Q4H PRN PRN #10 tab 04/18/17 Aspirin E.C. [Ecotrin] 325 mg PO BID 04/20/17 Famotidine [Pepcid] 20 mg PO BID 04/20/17 Current Medications Generic Name Dose Route Start Last Admin Trade Name Freq PRN Reason Stop Dose Admin Acetaminophen 1,000 mg 04/20/17 16:54 04/21/17 12:30 Tylenol PO 1,000 mg Q8H PRN PRN Administration MILD PAIN (1-3/10) Albuterol Sulfate 1 - 2 puff 04/20/17 15:49 Ventolin Hfa (Sp) INHALATION Q4H PRN PRN WHEEZING Aspirin 325 mg 04/20/17 17:00 04/21/17 07:53 Ecotrin PO 325 mg BIDCM ANAYA Administration Atorvastatin Calcium 20 mg 04/20/17 22:00 04/20/17 21:29 Lipitor PO 20 mg QHS [facility] Administration Bisacodyl 10 mg 04/20/17 16:56 Dulcolax PO DAILY PRN Constipation Citalopram Hydrobromide 20 mg 04/20/17 22:00 04/20/17 21:29 Celexa PO 20 mg QHS [facility] Administration Famotidine 20 mg 04/20/17 18:00 04/21/17 06:26 Pepcid PO 20 mg BID [facility] Administration Furosemide 40 mg 04/20/17 16:00 04/21/17 06:26 Lasix PO 40 mg DAILY [facility] Administration Gabapentin 300 mg 04/20/17 17:00 04/21/17 07:53 [facility] Levothyroxine Sodium 100 mcg 04/21/17 06:00 04/21/17 06:26 Synthroid PO 100 mcg DAILY@0600 [facility] Administration Magnesium Oxide 400 mg 04/21/17 06:00 04/21/17 06:26 Mag-Ox 400 PO 400 mg DAILY [facility] Administration Metoprolol Tartrate 50 mg 04/20/17 18:00 04/21/17 06:26 Lopressor (Beta Allan) PO 50 mg BID [facility] Administration Nitroglycerin 0.4 mg 04/20/17 15:49 Nitrostat SUBLINGUAL Q5M PRN CARDIAC/CHEST PAIN Bevepi ( 2 puff 04/20/17 18:00 04/21/17 06:27 Glycopyrrolate/ INHALATION 2 puff Formoterol 9/4.8mcg BID [facility] Administration Per Inhalation) Oxycodone HCl 10 mg 04/20/17 16:56 04/21/17 11:16 Oxyir PO 10 mg Q4H PRN PRN Administration SEVERE PAIN (6-10/10) Polyethylene Glycol 17 gm 04/21/17 06:00 04/21/17 06:27 Miralax PO Not Given DAILY [facility] Polysaccharide Iron Complex 150 mg 04/22/17 08:00 Ferrex [facility] Potassium Chloride 20 meq 04/22/17 08:00 K-Dur [facility] Promethazine HCl 25 mg 04/20/17 15:49 Phenergan PO Q4H PRN PRN NAUSEA Senna/Docusate Sodium 2 tablet 04/20/17 18:00 02/10/18 06:26 Senokot-S, Pennie-Colace PO 2 tablet BID ANAYA Administration Tuberculin PPD 5 tu 04/28/17 10:00 Tubersol, Aplisol, Ppd ID 04/28/17 10:01 X1 ONE Problem List (Last Reviewed 03/21/17 @ 16:28 by Tere Diaz) Osteoarthritis of left knee (Chronic) Coronary artery disease (Chronic) Tobacco abuse (Chronic) Back pain (Chronic) Vital Signs Temp Pulse Resp BP Pulse Ox 98.4 F 80 18 136/71 H 93 04/20/17 15:30 04/21/17 06:26 04/21/17 06:25 04/21/17 06:26 04/21/17 06:25 Oxygen Delivery Method Room Air Weight: 94.149 kg Body Mass Index (BMI) 34.7 Sodium 141 mmol/L (136-145) 04/21/17 06:13 Potassium 2.9 mmol/L (3.5-5.1) L 04/21/17 06:13 Chloride 103 mmol/L (98-107) 04/21/17 06:13 Carbon Dioxide 30.0 mmol/L (21.0-32.0) 04/21/17 06:13 Anion Gap 8 (5-15) 04/21/17 06:13 BUN 10 mg/dL (7-18) 04/21/17 06:13 Creatinine 0.63 mg/dL (0.55-1.02) 04/21/17 06:13 Est GFR (MDRD) Af Amer 124 mL/min (>60) 04/21/17 06:13 Est GFR (MDRD) Non-Af 102 mL/min (>60) 04/21/17 06:13 BUN/Creatinine Ratio 15.8 RATIO (10-20) 04/21/17 06:13 Glucose 110 mg/dL (74-106) H 04/21/17 06:13 Assessment/Plan: 1) Pain: Acetaminophen 1000mg po q8h prn for mild pain, Oxycodone 10mg po q4h prn for severe pain. Please continue to monitor prn usage and for signs/symptoms of increased/decreased pain. 2) Hyperlipidemia: Atorvastatin 20mg po qhs. Pt's LFTs and Cholesterol level are within normal range. Please continue to monitor. 3) Hypothyroidism: Levothyroxine 100mcg po daily. Pt's TSH level was low on 03/2017. Please continue to monitor. 4) Hypomagnesemia: Mag-Ox 400mg po daily. Pt's magnesium level was 1.9 on 07/18/16. Please continue to monitor. 5) GERD: Famotidine 20mg po bid. Please continue to monitor for signs/symptoms of GERD 6) Nausea: Promethazine 25mg po q4h prn. Please continue to monitor for signs/symptoms of nausea. Medications has anticholinergic properties which can lead to dry mouth, constipation, and confusion. Please monitor for adverse effects. 7) Neuropathic Pain: Gabapentin 300mg po bid with meals. Please continue to monitor for signs/symptoms of increased/decreased neuropathic pain. Gabapentin has adverse GOLD LAYER effects such as ataxia and impaired psychomotor function which can lead to syncope and falls. Please continue to monitor pt. 8) Edema: Furosemide 40mg po daily. Pt's Na is 141, K+ is 2.9, SrCr is 0.63, and CrCl is 84.05. Please continue to monitor. 9) Hypokalemia: Potassium 20meq po daily. Pt's K+ is 2.9. Please continue to monitor 10) DVT Prophylaxis: Aspirin 325mg po bid. Please continue to monitor for signs/symptoms of bleeding/clot *11) CAD post stent: Metoprolol 50mg po bid, NTG 0.4mg prn. Pt's blood pressure and pulse are within normal range. Please continue to monitor. *-Pt was on Plavix prior to surgery. It looks like she was told to stop 5 days pre-op. Please consider restarting Plavix 75mg po daily 12) COPD--Albuterol 1-2 puffs po q4h prn wheezing, Glyopyrrolate/Formoterol 2 puffs po bid. Please continue to monitor for signs/symptoms of wheezing/sob Psychotropic Medications: Citalopram 20mg po qhs for depression. Medication will be due for a GDR by 10/2017 unless clinically contraindicated. Unnecessary Medications: none Bowel Regimen: Bisacodyl 10mg po daily prn for constipation, Miralax 17gm po daily, Senna/Docusate 2 tablets po bid. Please continue to monitor prn usage and for signs/symptoms of constipation/diarrhea. Date of Note:: 04/21/17 - Provider Comments Provider responsibility: Provider responsible to enter orders to implement recommendations <Dajuan Balderas Chi - Last Filed: 04/21/17 19:53> Progress Note - Pharmacy Subjective: [] Objective: Allergies No Known Allergies Allergy (Verified 04/10/17 13:17) Home Medications Medication Instructions Recorded Levothyroxine [Synthroid] 100 mcg PO DAILY 04/17/14 Magnesium Oxide [Mag-Ox 400] 400 mg PO DAILY 04/17/14 Metoprolol Tartrate [Lopressor 50 mg PO BID 04/17/14 (beta allan)] Simvastatin [Zocor] 40 mg PO QHS 04/17/14 Gabapentin [Gralise] 300 mg PO BID 04/29/15 Albuterol Inhaler [Ventolin Hfa] 1 - 2 puff INHALATION Q4H PRN PRN 07/11/16 Citalopram [Celexa] 20 mg PO QHS 07/11/16 Nitroglycerin [Nitrostat] 0.4 mg SUBLINGUAL Q5M PRN #1 bottle 01/04/17 furosemide 40 mg tablet 40 mg PO QDAY 02/26/17 Glycopyrrolate/Formoterol Fum 2 puff INHALATION BID 04/10/17 [Bevespi Aerosphere Inhaler] Docusate Sodium [Colace] 100 mg PO BID PRN PRN #10 cap 04/18/17 Oxycodone HCl/Acetaminophen 1 - 2 tab PO Q4H PRN PRN #60 tab 04/18/17 [Percocet 5/325] ProMETHAzine [Phenergan] 25 mg PO Q4H PRN PRN #10 tab 04/18/17 Aspirin E.C. [Ecotrin] 325 mg PO BID 04/20/17 Famotidine [Pepcid] 20 mg PO BID 04/20/17 Current Medications Generic Name Dose Route Start Last Admin Trade Name Freq PRN Reason Stop Dose Admin Acetaminophen 1,000 mg 04/20/17 16:54 04/21/17 12:30 Tylenol PO 1,000 mg Q8H PRN PRN Administration MILD PAIN (1-3/10) Albuterol Sulfate 1 - 2 puff 04/20/17 15:49 Ventolin Hfa (Sp) INHALATION Q4H PRN PRN WHEEZING Aspirin 325 mg 04/20/17 17:00 04/21/17 17:45 [facility] Administration Atorvastatin Calcium 20 mg 04/20/17 22:00 04/20/17 21:29 Lipitor PO 20 mg QHS [facility] Administration Bisacodyl 10 mg 04/20/17 16:56 Dulcolax PO DAILY PRN Constipation Citalopram Hydrobromide 20 mg 04/20/17 22:00 04/20/17 21:29 Celexa PO 20 mg QHS [facility] Administration Famotidine 20 mg 04/20/17 18:00 04/21/17 17:45 Pepcid PO 20 mg BID [facility] Administration Furosemide 40 mg 04/20/17 16:00 04/21/17 06:26 Lasix PO 40 mg DAILY [facility] Administration Gabapentin 300 mg 04/20/17 17:00 04/21/17 17:45 [facility]in [facility] Administration Levothyroxine Sodium 100 mcg 04/21/17 06:00 04/21/17 06:26 Synthroid PO 100 mcg DAILY@0600 [facility] Administration Magnesium Oxide 400 mg 04/21/17 06:00 04/21/17 06:26 Mag-Ox 400 PO 400 mg DAILY [facility] Administration Metoprolol Tartrate 50 mg 04/20/17 18:00 04/21/17 17:45 Lopressor (Beta Allan) PO 50 mg BID [facility] Administration Nitroglycerin 0.4 mg 04/20/17 15:49 Nitrostat SUBLINGUAL Q5M PRN CARDIAC/CHEST PAIN Bevepi ( 2 puff 04/20/17 18:00 04/21/17 17:46 Glycopyrrolate/ INHALATION 2 puff Formoterol 9/4.8mcg BID [facility] Administration Per Inhalation) Oxycodone HCl 5 mg 04/21/17 19:47 Oxyir PO Q4H PRN PRN SEVERE PAIN (6-10/10) Polyethylene Glycol 17 gm 04/21/17 06:00 04/21/17 06:27 Miralax PO Not Given DAILY [facility] Polysaccharide Iron Complex 150 mg 04/22/17 08:00 Ferrex 150 [facility] Potassium Chloride 20 meq 04/22/17 08:00 K-Dur [facility] Promethazine HCl 25 mg 04/20/17 15:49 Phenergan PO Q4H PRN PRN NAUSEA Senna/Docusate Sodium 2 tablet 04/20/17 18:00 04/21/17 18:00 Senokot-S, Pennie-Colace PO Not Given BID ANAYA Tuberculin PPD 5 tu 04/28/17 10:00 Tubersol, Aplisol, Ppd ID 04/28/17 10:01 X1 ONE Problem List (Last Reviewed 03/21/17 @ 16:28 by Tere Diaz) Osteoarthritis of left knee (Chronic) Coronary artery disease (Chronic) Tobacco abuse (Chronic) Back pain (Chronic) Vital Signs Temp Pulse Resp BP Pulse Ox 97.6 F L 74 16 126/43 H 94 04/21/17 15:35 04/21/17 17:45 04/21/17 15:35 04/21/17 15:35 04/21/17 15:35 Oxygen Delivery Method Room Air Weight: 94.149 kg Body Mass Index (BMI) 34.7 Sodium 141 mmol/L (136-145) 04/21/17 06:13 Potassium 2.9 mmol/L (3.5-5.1) L 04/21/17 06:13 Chloride 103 mmol/L (98-107) 04/21/17 06:13 Carbon Dioxide 30.0 mmol/L (21.0-32.0) 04/21/17 06:13 Anion Gap 8 (5-15) 04/21/17 06:13 BUN 10 mg/dL (7-18) 04/21/17 06:13 Creatinine 0.63 mg/dL (0.55-1.02) 04/21/17 06:13 Est GFR (MDRD) Af Amer 124 mL/min (>60) 04/21/17 06:13 Est GFR (MDRD) Non-Af 102 mL/min (>60) 04/21/17 06:13 BUN/Creatinine Ratio 15.8 RATIO (10-20) 04/21/17 06:13 Glucose 110 mg/dL (74-106) H 04/21/17 06:13 Assessment/Plan: Psychotropic Medications: Unnecessary Medications: Bowel Regimen: - Provider Comments Provider responsibility: Provider responsible to enter orders to implement recommendations Provider Comments to Recommendations by Pharmacy: Agree
--- NOTE | 2017-04-21 14:13 | PHA.CONS_ITS ---
<Kevin Blanton - Last Filed: 04/21/17 13:36> Progress Note - Pharmacy Subjective: [] TCU Admission Objective: Allergies No Known Allergies Allergy (Verified 04/10/17 13:17) Home Medications Medication Instructions Recorded Levothyroxine [Synthroid] 100 mcg PO DAILY 04/17/14 Magnesium Oxide [Mag-Ox 400] 400 mg PO DAILY 04/17/14 Metoprolol Tartrate [Lopressor 50 mg PO BID 04/17/14 (beta allan)] Simvastatin [Zocor] 40 mg PO QHS 04/17/14 Gabapentin [Gralise] 300 mg PO BID 04/29/15 Albuterol Inhaler [Ventolin Hfa] 1 - 2 puff INHALATION Q4H PRN PRN 07/11/16 Citalopram [Celexa] 20 mg PO QHS 07/11/16 Nitroglycerin [Nitrostat] 0.4 mg SUBLINGUAL Q5M PRN #1 bottle 01/04/17 furosemide 40 mg tablet 40 mg PO QDAY 02/26/17 Glycopyrrolate/Formoterol Fum 2 puff INHALATION BID 04/10/17 [Bevespi Aerosphere Inhaler] Docusate Sodium [Colace] 100 mg PO BID PRN PRN #10 cap 04/18/17 Oxycodone HCl/Acetaminophen 1 - 2 tab PO Q4H PRN PRN #60 tab 04/18/17 [Percocet 5/325] ProMETHAzine [Phenergan] 25 mg PO Q4H PRN PRN #10 tab 04/18/17 Aspirin E.C. [Ecotrin] 325 mg PO BID 04/20/17 Famotidine [Pepcid] 20 mg PO BID 04/20/17 Current Medications Generic Name Dose Route Start Last Admin Trade Name Freq PRN Reason Stop Dose Admin Acetaminophen 1,000 mg 04/20/17 16:54 04/21/17 12:30 Tylenol PO 1,000 mg Q8H PRN PRN Administration MILD PAIN (1-3/10) Albuterol Sulfate 1 - 2 puff 04/20/17 15:49 Ventolin Hfa (Sp) INHALATION Q4H PRN PRN WHEEZING Aspirin 325 mg 04/20/17 17:00 04/21/17 07:53 Ecotrin PO 325 mg BIDCM ANAYA Administration Atorvastatin Calcium 20 mg 04/20/17 22:00 04/20/17 21:29 Lipitor PO 20 mg QHS [facility] Administration Bisacodyl 10 mg 04/20/17 16:56 Dulcolax PO DAILY PRN Constipation Citalopram Hydrobromide 20 mg 04/20/17 22:00 04/20/17 21:29 Celexa PO 20 mg QHS [facility] Administration Famotidine 20 mg 04/20/17 18:00 04/21/17 06:26 Pepcid PO 20 mg BID [facility] Administration Furosemide 40 mg 04/20/17 16:00 04/21/17 06:26 Lasix PO 40 mg DAILY [facility] Administration Gabapentin 300 mg 04/20/17 17:00 04/21/17 07:53 [facility] Levothyroxine Sodium 100 mcg 04/21/17 06:00 04/21/17 06:26 Synthroid PO 100 mcg DAILY@0600 [facility] Administration Magnesium Oxide 400 mg 04/21/17 06:00 04/21/17 06:26 Mag-Ox 400 PO 400 mg DAILY [facility] Administration Metoprolol Tartrate 50 mg 04/20/17 18:00 04/21/17 06:26 Lopressor (Beta Allan) PO 50 mg BID [facility] Administration Nitroglycerin 0.4 mg 04/20/17 15:49 Nitrostat SUBLINGUAL Q5M PRN CARDIAC/CHEST PAIN Bevepi ( 2 puff 04/20/17 18:00 04/21/17 06:27 Glycopyrrolate/ INHALATION 2 puff Formoterol 9/4.8mcg BID [facility] Administration Per Inhalation) Oxycodone HCl 10 mg 04/20/17 16:56 04/21/17 11:16 Oxyir PO 10 mg Q4H PRN PRN Administration SEVERE PAIN (6-10/10) Polyethylene Glycol 17 gm 04/21/17 06:00 04/21/17 06:27 Miralax PO Not Given DAILY [facility] Polysaccharide Iron Complex 150 mg 04/22/17 08:00 Ferrex 150 [facility] Potassium Chloride 20 meq 04/22/17 08:00 K-Dur [facility] Promethazine HCl 25 mg 04/20/17 15:49 Phenergan PO Q4H PRN PRN NAUSEA Senna/Docusate Sodium 2 tablet 04/20/17 18:00 02/10/18 06:26 Senokot-S, Pennie-Colace PO 2 tablet BID ANAYA Administration Tuberculin PPD 5 tu 04/28/17 10:00 Tubersol, Aplisol, Ppd ID 04/28/17 10:01 X1 ONE Problem List (Last Reviewed 03/21/17 @ 16:28 by Tere Diaz) Osteoarthritis of left knee (Chronic) Coronary artery disease (Chronic) Tobacco abuse (Chronic) Back pain (Chronic) Vital Signs Temp Pulse Resp BP Pulse Ox 98.4 F 80 18 136/71 H 93 04/20/17 15:30 04/21/17 06:26 04/21/17 06:25 04/21/17 06:26 04/21/17 06:25 Oxygen Delivery Method Room Air Weight: 94.149 kg Body Mass Index (BMI) 34.7 Sodium 141 mmol/L (136-145) 04/21/17 06:13 Potassium 2.9 mmol/L (3.5-5.1) L 04/21/17 06:13 Chloride 103 mmol/L (98-107) 04/21/17 06:13 Carbon Dioxide 30.0 mmol/L (21.0-32.0) 04/21/17 06:13 Anion Gap 8 (5-15) 04/21/17 06:13 BUN 10 mg/dL (7-18) 04/21/17 06:13 Creatinine 0.63 mg/dL (0.55-1.02) 04/21/17 06:13 Est GFR (MDRD) Af Amer 124 mL/min (>60) 04/21/17 06:13 Est GFR (MDRD) Non-Af 102 mL/min (>60) 04/21/17 06:13 BUN/Creatinine Ratio 15.8 RATIO (10-20) 04/21/17 06:13 Glucose 110 mg/dL (74-106) H 04/21/17 06:13 Assessment/Plan: 1) Pain: Acetaminophen 1000mg po q8h prn for mild pain, Oxycodone 10mg po q4h prn for severe pain. Please continue to monitor prn usage and for signs/ symptoms of increased/decreased pain. 2) Hyperlipidemia: Atorvastatin 20mg po qhs. Pt's LFTs and Cholesterol level are within normal range. Please continue to monitor. 3) Hypothyroidism: Levothyroxine 100mcg po daily. Pt's TSH level was low on 2017. Please continue to monitor. 4) Hypomagnesemia: Mag-Ox 400mg po daily. Pt's magnesium level was 1.9 on . Please continue to monitor. 5) GERD: Famotidine 20mg po bid. Please continue to monitor for signs/symptoms of GERD 6) Nausea: Promethazine 25mg po q4h prn. Please continue to monitor for signs/ symptoms of nausea. Medications has anticholinergic properties which can lead to dry mouth, constipation, and confusion. Please monitor for adverse effects. 7) Neuropathic Pain: Gabapentin 300mg po bid with meals. Please continue to monitor for signs/symptoms of increased/decreased neuropathic pain. Gabapentin has adverse LACQUER SIZER effects such as ataxia and impaired psychomotor function which can lead to syncope and falls. Please continue to monitor pt. 8) Edema: Furosemide 40mg po daily. Pt's Na is 141, K+ is 2.9, SrCr is 0.63, and CrCl is 84.05. Please continue to monitor. 9) Hypokalemia: Potassium 20meq po daily. Pt's K+ is 2.9. Please continue to monitor 10) DVT Prophylaxis: Aspirin 325mg po bid. Please continue to monitor for signs/symptoms of bleeding/clot *11) CAD post stent: Metoprolol 50mg po bid, NTG 0.4mg prn. Pt's blood pressure and pulse are within normal range. Please continue to monitor. *-Pt was on Plavix prior to surgery. It looks like she was told to stop 5 days pre-op. Please consider restarting Plavix 75mg po daily 12) COPD--Albuterol 1-2 puffs po q4h prn wheezing, Glyopyrrolate/Formoterol 2 puffs po bid. Please continue to monitor for signs/symptoms of wheezing/sob Psychotropic Medications: Citalopram 20mg po qhs for depression. Medication will be due for a GDR by 2017 unless clinically contraindicated. Unnecessary Medications: none Bowel Regimen: Bisacodyl 10mg po daily prn for constipation, Miralax 17gm po daily, Senna/Docusate 2 tablets po bid. Please continue to monitor prn usage and for signs/symptoms of constipation/diarrhea. Date of Note:: 04/21/17 - Provider Comments Provider responsibility: Provider responsible to enter orders to implement recommendations <Dajuan Balderas Chi - Last Filed: 04/21/17 19:53> Progress Note - Pharmacy Subjective: [] Objective: Allergies No Known Allergies Allergy (Verified 04/10/17 13:17) Home Medications Medication Instructions Recorded Levothyroxine [Synthroid] 100 mcg PO DAILY 04/17/14 Magnesium Oxide [Mag-Ox 400] 400 mg PO DAILY 04/17/14 Metoprolol Tartrate [Lopressor 50 mg PO BID 04/17/14 (beta allan)] Simvastatin [Zocor] 40 mg PO QHS 04/17/14 Gabapentin [Gralise] 300 mg PO BID 04/29/15 Albuterol Inhaler [Ventolin Hfa] 1 - 2 puff INHALATION Q4H PRN PRN 07/11/16 Citalopram [Celexa] 20 mg PO QHS 07/11/16 Nitroglycerin [Nitrostat] 0.4 mg SUBLINGUAL Q5M PRN #1 bottle 01/04/17 furosemide 40 mg tablet 40 mg PO QDAY 02/26/17 Glycopyrrolate/Formoterol Fum 2 puff INHALATION BID 04/10/17 [Bevespi Aerosphere Inhaler] Docusate Sodium [Colace] 100 mg PO BID PRN PRN #10 cap 04/18/17 Oxycodone HCl/Acetaminophen 1 - 2 tab PO Q4H PRN PRN #60 tab 04/18/17 [Percocet 5/325] ProMETHAzine [Phenergan] 25 mg PO Q4H PRN PRN #10 tab 04/18/17 Aspirin E.C. [Ecotrin] 325 mg PO BID 04/20/17 Famotidine [Pepcid] 20 mg PO BID 04/20/17 Current Medications Generic Name Dose Route Start Last Admin Trade Name Freq PRN Reason Stop Dose Admin Acetaminophen 1,000 mg 04/20/17 16:54 04/21/17 12:30 Tylenol PO 1,000 mg Q8H PRN PRN Administration MILD PAIN (1-3/10) Albuterol Sulfate 1 - 2 puff 04/20/17 15:49 Ventolin Hfa (Sp) INHALATION Q4H PRN PRN WHEEZING Aspirin 325 mg 04/20/17 17:00 04/21/17 17:45 [facility] Administration Atorvastatin Calcium 20 mg 04/20/17 22:00 04/20/17 21:29 Lipitor PO 20 mg QHS [facility] Administration Bisacodyl 10 mg 04/20/17 16:56 Dulcolax PO DAILY PRN Constipation Citalopram Hydrobromide 20 mg 04/20/17 22:00 04/20/17 21:29 Celexa PO 20 mg QHS [facility] Administration Famotidine 20 mg 04/20/17 18:00 04/21/17 17:45 Pepcid PO 20 mg BID [facility] Administration Furosemide 40 mg 04/20/17 16:00 04/21/17 06:26 Lasix PO 40 mg DAILY [facility] Administration Gabapentin 300 mg 04/20/17 17:00 04/21/17 17:45 [facility]ontin PO 300 [facility] Administration Levothyroxine Sodium 100 mcg 04/21/17 06:00 04/21/17 06:26 Synthroid PO 100 mcg DAILY@0600 [facility] Administration Magnesium Oxide 400 mg 04/21/17 06:00 04/21/17 06:26 Mag-Ox 400 PO 400 mg DAILY [facility] Administration Metoprolol Tartrate 50 mg 04/20/17 18:00 04/21/17 17:45 Lopressor (Beta Allan) PO 50 mg BID [facility] Administration Nitroglycerin 0.4 mg 04/20/17 15:49 Nitrostat SUBLINGUAL Q5M PRN CARDIAC/CHEST PAIN Bevepi ( 2 puff 04/20/17 18:00 04/21/17 17:46 Glycopyrrolate/ INHALATION 2 puff Formoterol 9/4.8mcg BID [facility] Administration Per Inhalation) Oxycodone HCl 5 mg 04/21/17 19:47 Oxyir PO Q4H PRN PRN SEVERE PAIN (6-10/10) Polyethylene Glycol 17 gm 04/21/17 06:00 04/21/17 06:27 Miralax PO Not Given DAILY [facility] Polysaccharide Iron Complex 150 mg 04/22/17 08:00 Ferrex 150 [facility] Potassium Chloride 20 meq 04/22/17 08:00 K-Dur [facility] Promethazine HCl 25 mg 04/20/17 15:49 Phenergan PO Q4H PRN PRN NAUSEA Senna/Docusate Sodium 2 tablet 04/20/17 18:00 04/21/17 18:00 Senokot-S, Pennie-Colace PO Not Given BID ANAYA Tuberculin PPD 5 tu 04/28/17 10:00 Tubersol, Aplisol, Ppd ID 04/28/17 10:01 X1 ONE Problem List (Last Reviewed 03/21/17 @ 16:28 by Tere Diaz) Osteoarthritis of left knee (Chronic) Coronary artery disease (Chronic) Tobacco abuse (Chronic) Back pain (Chronic) Vital Signs Temp Pulse Resp BP Pulse Ox 97.6 F L 74 16 126/43 H 94 04/21/17 15:35 04/21/17 17:45 04/21/17 15:35 04/21/17 15:35 04/21/17 15:35 Oxygen Delivery Method Room Air Weight: 94.149 kg Body Mass Index (BMI) 34.7 Sodium 141 mmol/L (136-145) 04/21/17 06:13 Potassium 2.9 mmol/L (3.5-5.1) L 04/21/17 06:13 Chloride 103 mmol/L (98-107) 04/21/17 06:13 Carbon Dioxide 30.0 mmol/L (21.0-32.0) 04/21/17 06:13 Anion Gap 8 (5-15) 04/21/17 06:13 BUN 10 mg/dL (7-18) 04/21/17 06:13 Creatinine 0.63 mg/dL (0.55-1.02) 04/21/17 06:13 Est GFR (MDRD) Af Amer 124 mL/min (>60) 04/21/17 06:13 Est GFR (MDRD) Non-Af 102 mL/min (>60) 04/21/17 06:13 BUN/Creatinine Ratio 15.8 RATIO (10-20) 04/21/17 06:13 Glucose 110 mg/dL (74-106) H 04/21/17 06:13 Assessment/Plan: Psychotropic Medications: Unnecessary Medications: Bowel Regimen: - Provider Comments Provider responsibility: Provider responsible to enter orders to implement recommendations Provider Comments to Recommendations by Pharmacy: Agree
--- NOTE | 2017-04-21 15:29 | NURSING ---
Pt approached this nurse asking about Pt pain medication. stated Pt is sensitive to narcotics and they cause her to sleep for very long periods. Pt currently on OXY IR 10mg q 4 hours PRN. He is asking that her dosage be changed to 5 MG. Lilly GRIGGS aware and will talk with Dr. Balderas
[2017-04-21 15:35] VITALS: BP 126/43; PULSE 74; RESP 16; TEMP 36.4; O2SAT 94
[2017-04-21 17:45] VITALS: PULSE 74
[2017-04-21] MEDS: oxyCODONE 5 MG Tablet PO (20:11)
[2017-04-21] MEDS: Atorvastatin Calcium 20 MG Tablet PO (20:12)
[2017-04-21] MEDS: Citalopram 20 MG Tablet PO (20:13)
--- NOTE | 2017-04-21 20:53 | NURSING ---
Addendum entered by Shi Cerna 04/21/17 21:00: Both RNs on duty aware. Original Note: Pt used call light and asked for assistance to bathroom. This nurse answered light, helped pt ambulate with walker to toilet, changed/washed up for bed. Pt was incontinent of urine visible on her underwear and sweatpants. Pt asked nurse to put them in bag in closet with other soiled clothes. Odor coming from closet d/t bag quite full. Pt wearing her last pair of clean underwear and when asked, told this nurse she did not know if anyone would be able to come in and get her laundry to wash. Pt also asked for pain medication stating her pain was 8/10, visibly in pain while ambulating. Orders received early in shift to change prn oxyir 10mg q4 to oxyir 5mg prn q4 after requested this saying pt 'seems very drowsy'. Pt very upset, angry about this and wanted order changed back to two tabs. Encouraged pt to try taking one, and would follow up, keep on schedule that orders allow. After 1:1 and conversation, positioned comfortably in bed and given fresh water and a snack, pt had calmed down but requested oxyir q4 saying, wake me up if I'm sleeping. She stated she wanted to speak to the doctor next time he is in. Assured pt we would monitor and record her complaints/pain. Pt content and thankful for this. Call light within reach, continuing to monitor.
[2017-04-22] MEDS: oxyCODONE 5 MG Tablet PO ×3 (00:38→12:28)
[2017-04-22] MEDS: Furosemide 40 MG Tablet PO (06:32)
[2017-04-22] MEDS: Levothyroxine 100 MCG Tablet PO (06:35)
[2017-04-22] MEDS: Famotidine 20 MG Tablet PO ×2 (06:35→17:14)
[2017-04-22] MEDS: Senna/Docusate Sodium 1 Tablet 2 TABLET PO (06:35)
[2017-04-22] MEDS: Polyethylene Glycol 3350 17 GM PACKET PO (06:36)
[2017-04-22] MEDS: Magnesium Oxide 400 MG Tablet PO (06:36)
[2017-04-22 06:44] VITALS: BP 142/61; PULSE 72
[2017-04-22] MEDS: Clopidogrel Bisulfate 75 MG Tablet PO (06:44)
[2017-04-22] MEDS: Metoprolol Tartrate 50 MG Tablet PO ×2 (06:44→17:14)
[2017-04-22] MEDS: Acetaminophen 500 MG Tablet 1000 MG PO (06:45)
--- NOTE | 2017-04-22 06:52 | NURSING ---
Pt asking this morning if orders for prn oxyir were changed back to two tabs q4 hours, still upset called and asked for dose changed, and order changed to 1 tab. Pt states pain is usually around 7-9 and one tab only brings it down to a 6. Spoke with and told this nurse she said 'it is not your business or your pain, I am not going to get addicted and I need it to be able to do therapy' per pt was okay with this, and pt would like doctor notified this morning, and orders changed. RNs on duty aware. Continuing to monitor, medicate as orders allow.
[2017-04-22] MEDS: Iron Polysaccharide Complex 150 MG CAPSULE PO (08:10)
[2017-04-22] MEDS: Gabapentin 300 MG Capsule PO ×2 (08:10→17:13)
[2017-04-22] MEDS: Aspirin E.C. 325 MG Tablet PO ×2 (08:10→17:13)
[2017-04-22 10:00] VITALS: PULSE 74; RESP 18; O2SAT 96
--- NOTE | 2017-04-22 13:14 | NURSING ---
Patient feels 5mg oxyir is not controlling pain effectively. Dr. Balderas made aware, NO to increase oxy to 10mg PO [id number] PRN.
[2017-04-22 15:26] VITALS: BP 135/62; PULSE 80; RESP 18; TEMP 36.2; O2SAT 94
[2017-04-22 17:14] VITALS: PULSE 80
[2017-04-22] MEDS: oxyCODONE 5 MG Tablet 10 MG PO (21:17)
[2017-04-22] MEDS: Atorvastatin Calcium 20 MG Tablet PO (21:18)
[2017-04-22] MEDS: Citalopram 20 MG Tablet PO (21:18)
[2017-04-23] MEDS: oxyCODONE 5 MG Tablet 10 MG PO ×4 (01:30→19:49)
[2017-04-23 06:10] LABS: Anion Gap 7 (5-15); BUN 11 mg/dL (7-18); BUN/Creat Ratio 14.9 RATIO (10-20); Calcium,Total 8.7 mg/dL (8.5-10.1); Chloride 104 mmol/L (98-107); Creatinine, Serum 0.74 mg/dL (0.55-1.02); EST Glomerular Filtration Rate 86 mL/min (>60); Est Glom Filt Rate - Afr Amer 104 mL/min (>60); Estimated Creatinine Clearance 71.56 ml/min; Glucose 107 mg/dL (74-106); Potassium 4.2 mmol/L (3.5-5.1); Sodium Level 140 mmol/L (136-145)
[2017-04-23] MEDS: Acetaminophen 500 MG Tablet 1000 MG PO ×2 (06:23→19:49)
[2017-04-23] MEDS: Furosemide 40 MG Tablet PO (06:23)
[2017-04-23] MEDS: Magnesium Oxide 400 MG Tablet PO (06:24)
[2017-04-23] MEDS: Famotidine 20 MG Tablet PO ×2 (06:24→17:47)
[2017-04-23 06:25] VITALS: PULSE 92
[2017-04-23] MEDS: Metoprolol Tartrate 50 MG Tablet PO ×2 (06:25→17:47)
[2017-04-23] MEDS: Clopidogrel Bisulfate 75 MG Tablet PO (06:25)
[2017-04-23] MEDS: Levothyroxine 100 MCG Tablet PO (06:25)
[2017-04-23] MEDS: Gabapentin 300 MG Capsule PO ×2 (08:25→17:47)
[2017-04-23] MEDS: Iron Polysaccharide Complex 150 MG CAPSULE PO (08:25)
[2017-04-23] MEDS: Aspirin E.C. 325 MG Tablet PO ×2 (08:25→17:47)
[2017-04-23 10:00] VITALS: PULSE 62; RESP 18; O2SAT 96
[2017-04-23 16:00] VITALS: BP 134/64; PULSE 83; RESP 18; TEMP 36.8; O2SAT 96
[2017-04-23 17:47] VITALS: BP 134/64; PULSE 83
[2017-04-23] MEDS: Atorvastatin Calcium 20 MG Tablet PO (19:50)
[2017-04-23] MEDS: Citalopram 20 MG Tablet PO (19:50)
[2017-04-24] MEDS: oxyCODONE 5 MG Tablet 10 MG PO ×4 (00:30→19:01)
[2017-04-24] MEDS: Furosemide 40 MG Tablet PO (06:45)
[2017-04-24] MEDS: Magnesium Oxide 400 MG Tablet PO (06:48)
[2017-04-24] MEDS: Levothyroxine 100 MCG Tablet PO (06:48)
[2017-04-24] MEDS: Acetaminophen 500 MG Tablet 1000 MG PO ×2 (06:48→20:04)
[2017-04-24] MEDS: Clopidogrel Bisulfate 75 MG Tablet PO (06:48)
[2017-04-24] MEDS: Famotidine 20 MG Tablet PO ×2 (06:48→17:03)
[2017-04-24 06:50] VITALS: BP 118/64; PULSE 79
[2017-04-24] MEDS: Metoprolol Tartrate 50 MG Tablet PO ×2 (06:50→17:03)
[2017-04-24] MEDS: Aspirin E.C. 325 MG Tablet PO ×2 (08:40→17:03)
[2017-04-24] MEDS: Gabapentin 300 MG Capsule PO ×2 (08:40→17:03)
[2017-04-24] MEDS: Iron Polysaccharide Complex 150 MG CAPSULE PO (08:41)
[2017-04-24 10:00] VITALS: PULSE 78; RESP 18; O2SAT 94
--- NOTE | 2017-04-24 10:34 | NURSING ---
DRESSING REMOVED FROM LEFT KNEE, DERMABOND INTACK, CLEANED AND APPLIED ABD. KNEE,BRUISED,WARM,NONPITTING EDEMA X2. PT TOLERATED WELL. INDU STOCK AWARE
[2017-04-24 15:41] VITALS: BP 130/60; PULSE 82; RESP 16; TEMP 36.9; O2SAT 95
[2017-04-24 17:03] VITALS: PULSE 78
[2017-04-24] MEDS: Atorvastatin Calcium 20 MG Tablet PO (20:01)
[2017-04-24] MEDS: Citalopram 20 MG Tablet PO (20:01)
[2017-04-25] MEDS: oxyCODONE 5 MG Tablet 10 MG PO ×3 (06:59→23:35)
[2017-04-25 07:00] VITALS: BP 127/63; PULSE 78
[2017-04-25] MEDS: Metoprolol Tartrate 50 MG Tablet PO ×2 (07:00→16:53)
[2017-04-25] MEDS: Famotidine 20 MG Tablet PO ×2 (07:00→16:53)
[2017-04-25] MEDS: Clopidogrel Bisulfate 75 MG Tablet PO (07:00)
[2017-04-25] MEDS: Magnesium Oxide 400 MG Tablet PO (07:01)
[2017-04-25] MEDS: Furosemide 40 MG Tablet PO (07:01)
[2017-04-25] MEDS: Levothyroxine 100 MCG Tablet PO (07:02)
[2017-04-25] MEDS: Iron Polysaccharide Complex 150 MG CAPSULE PO (07:42)
[2017-04-25] MEDS: Gabapentin 300 MG Capsule PO ×2 (07:42→16:53)
[2017-04-25] MEDS: Aspirin E.C. 325 MG Tablet PO ×2 (07:43→16:53)
--- NOTE | 2017-04-25 09:40 | NURSING ---
hydraulic assembler recommended diet changed to cardiac, order changed
[2017-04-25 15:52] VITALS: BP 126/61; PULSE 75; RESP 16; TEMP 36.6; O2SAT 93
--- NOTE | 2017-04-25 15:56 | CASEMGMT ---
Plan of care meeting held. Resident present as well as resident spouse. No discharge date set at this time. Resident to continue with further care and treatment on the Transitional Care Unit at this time. Resident plans to discharge home with spouse at time of discharge. Support given. Will continue to follow. Michelle BATISTA, IT APPLICATION SUPPORT ANALYST
[2017-04-25] MEDS: Acetaminophen 500 MG Tablet 1000 MG PO (16:50)
--- NOTE | 2017-04-25 16:51 | CASEMGMT ---
Brief interview for mental status (BIMS) and resident mood interview (PHQ-9) completed on this day. BIMS score 1515. PHQ-9 score 06/05
[2017-04-25 16:53] VITALS: PULSE 86
[2017-04-25] MEDS: Citalopram 20 MG Tablet PO (20:25)
[2017-04-25] MEDS: Atorvastatin Calcium 20 MG Tablet PO (20:25)
[2017-04-26 05:49] VITALS: BP 115/58; PULSE 74; RESP 16; TEMP 36.9; O2SAT 93
[2017-04-26 05:51] VITALS: BP 115/58; PULSE 74
[2017-04-26] MEDS: Furosemide 40 MG Tablet PO (05:51)
[2017-04-26] MEDS: Famotidine 20 MG Tablet PO ×2 (05:51→17:04)
[2017-04-26] MEDS: Metoprolol Tartrate 50 MG Tablet PO ×2 (05:51→17:04)
[2017-04-26] MEDS: Clopidogrel Bisulfate 75 MG Tablet PO (05:51)
[2017-04-26] MEDS: Levothyroxine 100 MCG Tablet PO (05:51)
[2017-04-26] MEDS: Magnesium Oxide 400 MG Tablet PO (05:51)
[2017-04-26] MEDS: Aspirin E.C. 325 MG Tablet PO ×2 (07:49→17:05)
[2017-04-26] MEDS: Gabapentin 300 MG Capsule PO ×2 (07:49→17:05)
[2017-04-26] MEDS: Iron Polysaccharide Complex 150 MG CAPSULE PO (07:49)
[2017-04-26] MEDS: oxyCODONE 5 MG Tablet 10 MG PO ×2 (08:50→21:58)
[2017-04-26] MEDS: Acetaminophen 500 MG Tablet 1000 MG PO (11:00)
--- NOTE | 2017-04-26 14:55 | MDS.RN ---
Pain interview for JEFE 04/27/17 completed.
[2017-04-26 15:25] VITALS: BP 128/54; PULSE 80; RESP 18; TEMP 36.9; O2SAT 95
[2017-04-26 17:04] VITALS: PULSE 820
[2017-04-26] MEDS: Atorvastatin Calcium 20 MG Tablet PO (21:57)
[2017-04-26] MEDS: Citalopram 20 MG Tablet PO (21:57)
[2017-04-26 22:00] VITALS: PULSE 73; O2SAT 95
[2017-04-27] MEDS: Levothyroxine 100 MCG Tablet PO (06:35)
[2017-04-27] MEDS: Furosemide 40 MG Tablet PO (06:35)
[2017-04-27] MEDS: Clopidogrel Bisulfate 75 MG Tablet PO (06:35)
[2017-04-27] MEDS: Famotidine 20 MG Tablet PO ×2 (06:35→17:18)
[2017-04-27] MEDS: Magnesium Oxide 400 MG Tablet PO (06:35)
[2017-04-27 06:37] VITALS: BP 140/54; PULSE 79
[2017-04-27] MEDS: Metoprolol Tartrate 50 MG Tablet PO ×2 (06:37→17:18)
[2017-04-27] MEDS: Aspirin E.C. 325 MG Tablet PO ×2 (08:20→17:19)
[2017-04-27] MEDS: oxyCODONE 5 MG Tablet 10 MG PO ×2 (08:20→14:27)
[2017-04-27] MEDS: Gabapentin 300 MG Capsule PO ×2 (08:20→17:19)
[2017-04-27] MEDS: Iron Polysaccharide Complex 150 MG CAPSULE PO (08:21)
[2017-04-27] MEDS: Bisacodyl 5 MG Tablet 10 MG PO (09:30)
[2017-04-27 09:31] VITALS: PULSE 79; RESP 18; O2SAT 95
--- NOTE | 2017-04-27 13:42 | CASEMGMT ---
Social Work Resident expressing interest in completed Durable Power of [employer] ([employer]). Meeting with resident in room. After discussing with resident about [employer] resident then wanting to complete paperwork. [employer] completed with resident. Original given to resident and a copy was placed on resident chart. Michelle BATISTA, QUARRY SUPERVISOR OPEN PIT
[2017-04-27 16:00] VITALS: BP 145/72; PULSE 85; RESP 14; TEMP 36.8; O2SAT 92
[2017-04-27 17:18] VITALS: BP 145/72; PULSE 85
[2017-04-27] MEDS: Senna/Docusate Sodium 1 Tablet 2 TABLET PO (17:18)
[2017-04-27] MEDS: Acetaminophen 500 MG Tablet 1000 MG PO (20:28)
[2017-04-27] MEDS: Atorvastatin Calcium 20 MG Tablet PO (20:29)
[2017-04-27] MEDS: Citalopram 20 MG Tablet PO (20:29)
[2017-04-28 06:22] VITALS: BP 124/59; PULSE 66
[2017-04-28] MEDS: Magnesium Oxide 400 MG Tablet PO (06:22)
[2017-04-28] MEDS: Metoprolol Tartrate 50 MG Tablet PO ×2 (06:22→17:14)
[2017-04-28] MEDS: Clopidogrel Bisulfate 75 MG Tablet PO (06:22)
[2017-04-28] MEDS: Famotidine 20 MG Tablet PO ×2 (06:23→17:14)
[2017-04-28] MEDS: Levothyroxine 100 MCG Tablet PO (06:23)
[2017-04-28] MEDS: Furosemide 40 MG Tablet PO (06:23)
[2017-04-28] MEDS: oxyCODONE 5 MG Tablet 10 MG PO ×4 (06:28→22:00)
[2017-04-28 06:54] LABS: Absolute Lymphocyte Count 2.18 X10^3/ul (0.83-4.51); Absolute Neutrophil Count 4.5 X10^3/uL (2.0-7.7); Basophil# 0.07 X10^3/uL; Basophil% 0.9 % (0-1); Eosinophil# 0.17 X10^3/uL; Eosinophils% 2.2 % (0-5); Hematocrit 30.7 % (37-47); Hemoglobin 9.4 g/dl (12.0-15.0); Lymphocyte # 2.18 X10^3/ul (4.0); Lymphocyte % 28.4 % (19-41); Mean Corp Hgb Conc 30.6 g/gl (32-36); Mean Corpuscular Hgb 26.3 pg (27.0-32.0); Mean Corpuscular Volume 85.8 fL (81-99); Mean Platelet Vol. 9.5 fl (6.2-12.0); Monocyte# 0.74 X10^3/uL; Monocyte% 9.6 % (0-10); Neutrophil # 4.47 X10^3/uL (2.7-7.7); Neutrophil % 58.4 % (47-70); Platelet Count 482 K/mm3 (150-450); RBC Distribution Width CV 16.6 % (11.6-14.6); RBC Distribution Width SD 48.8 fl (35.1-43.9); Red Blood Count 3.58 M/mm3 (4.2-5.4); White Blood Count 7.7 K/mm3 (4.4-11.0)
[2017-04-28 07:02] LABS: POSITIVE COUNT NO; POSITIVE DIFFERENTIAL NO; POSITIVE MORPHOLOGY NO
[2017-04-28 07:10] LABS: Anion Gap 11 (5-15); BUN 12 mg/dL (7-18); Calcium,Total 8.8 mg/dL (8.5-10.1); Chloride 105 mmol/L (98-107); Creatinine, Serum 0.75 mg/dL (0.55-1.02); EST Glomerular Filtration Rate 84 mL/min (>60); Est Glom Filt Rate - Afr Amer 102 mL/min (>60); Glucose 105 mg/dL (74-106); Sodium Level 140 mmol/L (136-145)
[2017-04-28] MEDS: Aspirin E.C. 325 MG Tablet PO ×2 (08:11→17:14)
[2017-04-28] MEDS: Gabapentin 300 MG Capsule PO ×2 (08:11→17:14)
[2017-04-28] MEDS: Iron Polysaccharide Complex 150 MG CAPSULE PO (08:11)
[2017-04-28] MEDS: Tuberculin,Purif.prot.deriv. 50 TU/ML Vial 5 ML ID (12:29)
[2017-04-28 16:00] VITALS: BP 113/60; PULSE 73; RESP 18; TEMP 37.6; O2SAT 96
[2017-04-28 17:14] VITALS: BP 113/60; PULSE 73
[2017-04-28] MEDS: Citalopram 20 MG Tablet PO (22:02)
[2017-04-28] MEDS: Atorvastatin Calcium 20 MG Tablet PO (22:02)
--- NOTE | 2017-04-28 22:11 | NURSING ---
PT STATING THAT PEPCID ISN'T WORKING FOR HER, DR. KENNY UPDATED AND N.O. FOR PROTONIX, PT AWARE.
[2017-04-29] MEDS: Magnesium Oxide 400 MG Tablet PO (06:34)
[2017-04-29] MEDS: Pantoprazole Sodium 40 MG Tablet PO (06:34)
[2017-04-29 06:35] VITALS: BP 118/60; PULSE 82
[2017-04-29] MEDS: Clopidogrel Bisulfate 75 MG Tablet PO (06:35)
[2017-04-29] MEDS: Metoprolol Tartrate 50 MG Tablet PO ×2 (06:35→17:09)
[2017-04-29] MEDS: Furosemide 40 MG Tablet PO (06:35)
[2017-04-29] MEDS: Levothyroxine 100 MCG Tablet PO (06:35)
[2017-04-29 07:00] VITALS: PULSE 82; RESP 18
[2017-04-29] MEDS: Iron Polysaccharide Complex 150 MG CAPSULE PO (08:00)
[2017-04-29] MEDS: Aspirin E.C. 325 MG Tablet PO ×2 (08:00→17:09)
[2017-04-29] MEDS: Gabapentin 300 MG Capsule PO ×2 (08:01→17:09)
[2017-04-29] MEDS: oxyCODONE 5 MG Tablet 10 MG PO ×2 (08:03→21:42)
[2017-04-29 15:32] VITALS: BP 113/47; PULSE 73; RESP 18; TEMP 37.7; O2SAT 95
[2017-04-29 17:09] VITALS: PULSE 70
[2017-04-29] MEDS: Citalopram 20 MG Tablet PO (21:44)
[2017-04-29] MEDS: Atorvastatin Calcium 20 MG Tablet PO (21:44)
[2017-04-30] MEDS: Furosemide 40 MG Tablet PO (05:23)
[2017-04-30] MEDS: Clopidogrel Bisulfate 75 MG Tablet PO (05:24)
[2017-04-30 05:25] VITALS: BP 148/65; PULSE 70
[2017-04-30] MEDS: Levothyroxine 100 MCG Tablet PO (05:25)
[2017-04-30] MEDS: Pantoprazole Sodium 40 MG Tablet PO (05:25)
[2017-04-30] MEDS: Metoprolol Tartrate 50 MG Tablet PO ×2 (05:25→17:07)
[2017-04-30] MEDS: Magnesium Oxide 400 MG Tablet PO (05:25)
[2017-04-30 07:00] VITALS: PULSE 70; RESP 16; O2SAT 95
[2017-04-30] MEDS: oxyCODONE 5 MG Tablet 10 MG PO ×3 (07:57→23:58)
[2017-04-30] MEDS: Gabapentin 300 MG Capsule PO ×2 (07:58→17:08)
[2017-04-30] MEDS: Aspirin E.C. 325 MG Tablet PO ×2 (07:58→17:08)
[2017-04-30] MEDS: Iron Polysaccharide Complex 150 MG CAPSULE PO (07:58)
--- NOTE | 2017-04-30 08:34 | NURSING ---
Dr. Ramachandran called and states pt doesn't need to come to appt with him today, he will see her on TCU this week, pt updated.
[2017-04-30 14:31] VITALS: PULSE 79; RESP 18; O2SAT 93
[2017-04-30 15:04] VITALS: BP 138/60; PULSE 79; RESP 16; TEMP 36.7; O2SAT 95
[2017-04-30] MEDS: Acetaminophen 500 MG Tablet 1000 MG PO (15:53)
[2017-04-30 17:07] VITALS: BP 138/60; PULSE 79
[2017-04-30] MEDS: Atorvastatin Calcium 20 MG Tablet PO (20:21)
[2017-04-30] MEDS: Citalopram 20 MG Tablet PO (20:21)
[2017-05-01 06:05] VITALS: BP 115/57; PULSE 66
[2017-05-01] MEDS: Metoprolol Tartrate 50 MG Tablet PO ×2 (06:05→17:17)
[2017-05-01] MEDS: Clopidogrel Bisulfate 75 MG Tablet PO (06:05)
[2017-05-01] MEDS: Levothyroxine 100 MCG Tablet PO (06:05)
[2017-05-01] MEDS: Pantoprazole Sodium 40 MG Tablet PO (06:05)
[2017-05-01] MEDS: Furosemide 40 MG Tablet PO (06:05)
[2017-05-01] MEDS: Magnesium Oxide 400 MG Tablet PO (06:05)
[2017-05-01] MEDS: Acetaminophen 500 MG Tablet 1000 MG PO (07:43)
[2017-05-01] MEDS: Iron Polysaccharide Complex 150 MG CAPSULE PO (07:43)
[2017-05-01] MEDS: Gabapentin 300 MG Capsule PO ×2 (07:43→17:18)
[2017-05-01] MEDS: Aspirin E.C. 325 MG Tablet PO ×2 (07:43→17:17)
[2017-05-01 10:00] VITALS: PULSE 64; RESP 18; O2SAT 95
--- NOTE | 2017-05-01 10:16 | CASEMGMT ---
Brief interview for mental status (BIMS) and resident mood interview (PHQ-9) completed on this day. BIMS score 15. PHQ-9 score 04/07
--- NOTE | 2017-05-01 10:16 | CASEMGMT ---
Social Work Spoke with resident in room. This social work faculty member communicating to resident that discharge date has been set for 05/09/17. Resident is agreeable to discharge date and plans to discharge home with spouse. Resident plans to follow up with outpatient Physical therapy in [place], [place]. Resident reporting that the outpatient physical therapy location is [address] with a phone number of [phone]. Resident planning to notify spouse about discharge date and is declining for this social work faculty member to contact resident spouse about discharge information. Support given. Proposed discharge date: 05/09/17 PLAN: Discharge home with spouse and outpatient physical therapy. Michelle BATISTA, AIRPLANE PILOT SUPERVISOR
[2017-05-01] MEDS: oxyCODONE 5 MG Tablet 10 MG PO ×2 (12:44→19:32)
[2017-05-01 15:18] VITALS: BP 158/48; PULSE 86; RESP 18; TEMP 36.6; O2SAT 96
[2017-05-01 17:17] VITALS: BP 158/48; PULSE 86
--- NOTE | 2017-05-01 18:01 | PCM.PN.ORT ---
Subjective: 2 weeks status post left total knee arthroplasty. Patient is doing well at this time. Patient reports a probable discharge is next Sunday. No other issues at this time. Patient looks well. - Physical Exam General: Alert, Oriented x3, Cooperative, No apparent distress Musculoskeletal: - - Sling neurovascular intact. Incision clean dry and intact. No signs of effusion. Range of motion 0-75. No calf pain negative Homans. JOSE DE JESUS hose in place. Lab values have been stable. Vital signs remained stable. Vital Signs Temp Pulse Resp BP Pulse Ox 97.9 F 86 18 158/48 H 96 05/01/17 15:18 05/01/17 17:17 05/01/17 15:18 05/01/17 17:17 05/01/17 15:18 Oxygen Delivery Method Room Air Weight: 203 lb 1.6 oz Body Mass Index (BMI) 34.7 Intake and Output for Last 24 Hours 04/29/17 04/30/17 05/01/17 23:59 23:59 23:59 Intake Total 1180 / 1180 1200 / 1200 840 / 840 Balance 1180 / 1180 1200 / 1200 840 / 840 Assessment/Plan Assessment: After orthopedics status post left total knee arthroplasty roughly 2 weeks out. Plan: At this point time patient is doing well. Told the patient I would like to see at least 110? range of motion by the time she sees me at her next visit. Her next appointment will be in 4 weeks. We will get radiographs of the knee at that time. Would recommend the patient continue with baby aspirin daily for not only protection of cardiovascular function but also as a form of DVT prophylaxis as she does live in a smoking environment. He is called to set up ointment for 4 weeks at [facility]. Any issues please contact me.
[2017-05-01] MEDS: Atorvastatin Calcium 20 MG Tablet PO (19:31)
[2017-05-01] MEDS: Citalopram 20 MG Tablet PO (19:32)
--- NOTE | 2017-05-01 20:40 | PCM.DC ---
- Discharge Diagnoses Current Active Problems: Current Active and Chronic Problems (Last Reviewed 03/21/17 @ 16:28 by Tere Diaz) Osteoarthritis of left knee (Chronic) Coronary artery disease (Chronic) Tobacco abuse (Chronic) Back pain (Chronic) You will use the following diet at home:: No restrictions, Regular Your food should be the consistency of: Regular Your liquids should be the consistency of: Regular/Thin Discharge Activity: Return to Normal Activity, May Shower, Use Walker Weight Bearing Status: Weight bearing as tolerated Call your doctor if you observe: Fever of 101 or Higher, Inability to urinate, Inability to have a bowel movement, Shortness of breath, Chest pain, Uncontrolled pain Allergies/Adverse Reactions: Allergies No Known Allergies Allergy (Verified 04/10/17 13:17) Medications to take at Discharge Levothyroxine [Synthroid] 100 mcg PO DAILY 04/17/14 Magnesium Oxide [Mag-Ox 400] 400 mg PO DAILY 04/17/14 Metoprolol Tartrate [Lopressor (beta mayo)] 50 mg PO BID 04/17/14 Simvastatin [Zocor] 40 mg PO QHS 04/17/14 Gabapentin [Gralise] 300 mg PO BID 04/29/15 Albuterol Inhaler [Ventolin Hfa] 1 - 2 puff INHALATION Q4H PRN PRN 07/11/16 Citalopram [Celexa] 20 mg PO QHS 07/11/16 Nitroglycerin [Nitrostat] 0.4 mg SUBLINGUAL Q5M PRN #1 bottle 01/04/17 furosemide 40 mg tablet 40 mg PO QDAY 02/26/17 Glycopyrrolate/Formoterol Fum [Bevespi Aerosphere Inhaler] 2 puff INHALATION BID 04/10/17 ProMETHAzine [Phenergan] 25 mg PO Q4H PRN PRN #10 tab 04/18/17 Acetaminophen [Tylenol] 1,000 mg PO Q8H PRN PRN tablet 05/01/17 Aspirin E.C. [Ecotrin] 325 mg PO BID #12 tab 05/01/17 Clopidogrel Bisulfate [Plavix] 75 mg PO DAILY tablet 05/01/17 Ipratropium/Albuterol Sulfate [Duoneb] 3 ml INHALATION Q6HWA.RT ampul.neb 05/01/17 Iron Polysaccharide Complex [Ferrex 150] 150 mg PO DAILYCM #30 cap 02/20/18 Oxycodone HCl/Acetaminophen [Percocet 5-325] 1 - 2 tab PO Q4H PRN PRN #30 tab 05/01/17 Pantoprazole Sodium [Protonix] 40 mg PO DAILY #30 tab 05/01/17 Polyethylene Glycol 3350 [Miralax] 17 gm PO DAILY #30 packet 05/01/17 Potassium Chloride [K-Dur] 20 meq PO DAILYCM #30 tab 05/01/17 Senna/Docusate Sodium [Senokot-S] 2 tab PO BID PRN PRN #120 tab 05/01/17 The following prescriptions were given: Oxycodone HCl/Acetaminophen [Percocet 5-325] 1 - 2 tab PO Q4H PRN PRN #30 tab PRN Reason: Pain Iron Polysaccharide Complex [Ferrex 150] 150 mg PO DAILYCM #30 cap Pantoprazole Sodium [Protonix] 40 mg PO DAILY #30 tab Polyethylene Glycol 3350 [Miralax] 17 gm PO DAILY #30 packet Potassium Chloride [K-Dur] 20 meq PO DAILYCM #30 tab Senna/Docusate Sodium [Senokot-S] 2 tab PO BID PRN PRN #120 tab PRN Reason: Constipation Aspirin E.C. [Ecotrin] 325 mg PO BID #12 tab Primary Care Physician: Dawn Rivera [Primary Care Provider] - Please follow up with your Primary Care Physician in: 1 week. Please Follow Up With: Howard Ramachandran DO When: 05/29/2017 Proposed Discharge Date: 05/09/17
--- NOTE | 2017-05-01 20:43 | PCM.DC.SUM ---
Discharge Date and Diagnosis Date of Admission: 04/20/17 Date of Discharge: 05/09/17 - Secondary Discharge Diagnosis Chronic Problems (Last Reviewed 03/21/17 @ 16:28 by Tere Diaz) Osteoarthritis of left knee (Chronic) Coronary artery disease (Chronic) Tobacco abuse (Chronic) Back pain (Chronic) Pulmonary hypertension (Chronic) RVSP 31 mmHg Stage 2 moderate COPD by GOLD classification (Chronic) FEV1 65% Morbid obesity (Chronic) Depression (Chronic) Hypertension (Chronic) Hyperlipidemia (Chronic) Nicotine dependence, cigarettes, in remission (Chronic) Other peripheral vascular disease (Chronic) Fatigue (Chronic) Non-ST elevated myocardial infarction (non-STEMI) (Chronic) Long-term use of high-risk medication (Chronic) Chest pain (Chronic) OA (osteoarthritis) of knee (Chronic) PALOMARES (dyspnea on exertion) (Chronic) Hypersomnia (Chronic) Sleep apnea (Chronic) Supraventricular tachycardia (Chronic) Hypothyroidism (Chronic) GERD (gastroesophageal reflux disease) (Chronic) Chronic back pain (Chronic) Hospital Course and Treatment Imaging Results: 04/25/17 09:40 Diet: Cardiac/Low Cholesterol Food consistency:: Regular Liquid Consistency:: Regular/Thin Is pt able to select menu?: Yes Operations: total knee replacement - Left. Procedures: None Summary of Care Provided: The patient is a 56 year old Female with below past medical history hospitalized for left total knee arthroplasty with Dr. Ramachandran 04/17/2017, admitted to TCU for rehabilitation, strengthening, prior to discharge home with spouse. [] Will discharge home with spouse. Will have outpatient physical therapy. Discharge Diet: No Restrictions Discharge Activity: Return to Normal Activity, May Shower, Use Walker Weight Bearing Status: Weight bearing as tolerated Call your doctor if you observe: Fever of 101 or Higher, Inability to urinate, Inability to have a bowel movement, Shortness of breath, Chest pain, Uncontrolled pain Home Medications: Medications to take at Discharge Levothyroxine [Synthroid] 100 mcg PO DAILY 04/17/14 Magnesium Oxide [Mag-Ox 400] 400 mg PO DAILY 04/17/14 Metoprolol Tartrate [Lopressor (beta mayo)] 50 mg PO BID 04/17/14 Simvastatin [Zocor] 40 mg PO QHS 04/17/14 Gabapentin [Gralise] 300 mg PO BID 04/29/15 Albuterol Inhaler [Ventolin Hfa] 1 - 2 puff INHALATION Q4H PRN PRN 07/11/16 Citalopram [Celexa] 20 mg PO QHS 07/11/16 Nitroglycerin [Nitrostat] 0.4 mg SUBLINGUAL Q5M PRN #1 bottle 01/04/17 furosemide 40 mg tablet 40 mg PO QDAY 02/26/17 Glycopyrrolate/Formoterol Fum [Bevespi Aerosphere Inhaler] 2 puff INHALATION BID 04/10/17 ProMETHAzine [Phenergan] 25 mg PO Q4H PRN PRN #10 tab 04/18/17 Acetaminophen [Tylenol] 1,000 mg PO Q8H PRN PRN tablet 05/01/17 Aspirin E.C. [Ecotrin] 325 mg PO BID #12 tab 05/01/17 Clopidogrel Bisulfate [Plavix] 75 mg PO DAILY tablet 05/01/17 Ipratropium/Albuterol Sulfate [Duoneb] 3 ml INHALATION Q6HWA.RT ampul.neb 05/01/17 Iron Polysaccharide Complex [Ferrex 150] 150 mg PO DAILYCM #30 cap 05/01/17 Oxycodone HCl/Acetaminophen [Percocet 5-325] 1 - 2 tab PO Q4H PRN PRN #30 tab 05/01/17 Pantoprazole Sodium [Protonix] 40 mg PO DAILY #30 tab 05/01/17 Polyethylene Glycol 3350 [Miralax] 17 gm PO DAILY #30 packet 05/01/17 Potassium Chloride [K-Dur] 20 meq PO DAILYCM #30 tab 05/01/17 Senna/Docusate Sodium [Senokot-S] 2 tab PO BID PRN PRN #120 tab 05/01/17 Following Prescrptions Were Given to Patient: Oxycodone HCl/Acetaminophen [Percocet 5-325] 1 - 2 tab PO Q4H PRN PRN #30 tab PRN Reason: Pain Iron Polysaccharide Complex [Ferrex 150] 150 mg PO DAILYCM #30 cap Pantoprazole Sodium [Protonix] 40 mg PO DAILY #30 tab Polyethylene Glycol 3350 [Miralax] 17 gm PO DAILY #30 packet Potassium Chloride [K-Dur] 20 meq PO DAILYCM #30 tab Senna/Docusate Sodium [Senokot-S] 2 tab PO BID PRN PRN #120 tab PRN Reason: Constipation Aspirin E.C. [Ecotrin] 325 mg PO BID #12 tab Primary Care Physician: Dawn Rivera [Primary Care Provider] - Please follow up with your Primary Care Physician in: 1 week. Please Follow Up With: Howard Ramachandran DO When: 05/29/2017 Disposition: Home Minutes spent on discharge:: 30 Patient Condition:: Good Meaningful Use Info Meaningful Use Diagnoses (Choose all that apply): None applicable
[2017-05-02] MEDS: oxyCODONE 5 MG Tablet 10 MG PO ×4 (00:43→20:29)
[2017-05-02] MEDS: Furosemide 40 MG Tablet PO (05:24)
[2017-05-02 05:25] VITALS: PULSE 71
[2017-05-02] MEDS: Pantoprazole Sodium 40 MG Tablet PO (05:25)
[2017-05-02] MEDS: Clopidogrel Bisulfate 75 MG Tablet PO (05:25)
[2017-05-02] MEDS: Levothyroxine 100 MCG Tablet PO (05:25)
[2017-05-02] MEDS: Metoprolol Tartrate 50 MG Tablet PO ×2 (05:25→17:00)
[2017-05-02] MEDS: Polyethylene Glycol 3350 17 GM PACKET PO (05:26)
[2017-05-02] MEDS: Acetaminophen 500 MG Tablet 1000 MG PO (05:27)
[2017-05-02] MEDS: Magnesium Oxide 400 MG Tablet PO (05:30)
[2017-05-02] MEDS: Gabapentin 300 MG Capsule PO ×2 (07:47→17:00)
[2017-05-02] MEDS: Iron Polysaccharide Complex 150 MG CAPSULE PO (07:47)
[2017-05-02] MEDS: Aspirin E.C. 325 MG Tablet PO ×2 (07:47→17:01)
--- NOTE | 2017-05-02 08:40 | MDS.RN ---
Information for the mds was obtained from review of the clinical record, interview of resident, staff, and direct observation of resident's care.
[2017-05-02 09:30] VITALS: PULSE 86; RESP 16; O2SAT 99
--- NOTE | 2017-05-02 09:34 | NURSING ---
PT CALLED OUT FOR ASSIST IN BR, THIS NURSE ASKED WHAT SHE NEEDED HELP WITH & PT STATED WIPING MY BUTT. ASSISTED PT WITH WIPING. PT CAPABLE OF WIPING SELF, SHE IS HERE WITH A KNEE REPLACEMENT. THERAPY AWARE AND STATES SHE REPORTED TO THEM THAT SHE WIPES THE WRONG WAY. THERAPY AND STAFF WILL ENCOURAGE PT TO START DOING HER OWN WIPING, HAD DC DATE SET FOR 06/06.
[2017-05-02 15:25] VITALS: BP 140/52; PULSE 75; RESP 16; TEMP 36.6; O2SAT 95
[2017-05-02 17:00] VITALS: PULSE 75
[2017-05-02] MEDS: Atorvastatin Calcium 20 MG Tablet PO (20:29)
[2017-05-02] MEDS: Citalopram 20 MG Tablet PO (20:29)
[2017-05-03] MEDS: oxyCODONE 5 MG Tablet 10 MG PO ×3 (02:58→22:23)
[2017-05-03 06:39] VITALS: BP 122/59; PULSE 64
[2017-05-03] MEDS: Furosemide 40 MG Tablet PO (06:39)
[2017-05-03] MEDS: Metoprolol Tartrate 50 MG Tablet PO ×2 (06:39→16:52)
[2017-05-03] MEDS: Levothyroxine 100 MCG Tablet PO (06:40)
[2017-05-03] MEDS: Pantoprazole Sodium 40 MG Tablet PO (07:42)
[2017-05-03] MEDS: Clopidogrel Bisulfate 75 MG Tablet PO (07:42)
[2017-05-03] MEDS: Magnesium Oxide 400 MG Tablet PO (07:42)
[2017-05-03] MEDS: Iron Polysaccharide Complex 150 MG CAPSULE PO (07:43)
[2017-05-03] MEDS: Aspirin E.C. 325 MG Tablet PO ×2 (07:43→16:53)
[2017-05-03] MEDS: Gabapentin 300 MG Capsule PO ×2 (07:43→16:52)
[2017-05-03 09:10] VITALS: PULSE 68; RESP 16; O2SAT 94
[2017-05-03] MEDS: Acetaminophen 500 MG Tablet 1000 MG PO (11:05)
[2017-05-03 15:37] VITALS: BP 121/52; PULSE 66; RESP 16; TEMP 36.6; O2SAT 95
[2017-05-03 16:52] VITALS: PULSE 66
[2017-05-03] MEDS: Atorvastatin Calcium 20 MG Tablet PO (19:44)
[2017-05-03] MEDS: Citalopram 20 MG Tablet PO (19:44)
[2017-05-04 05:59] VITALS: BP 147/67; PULSE 70
[2017-05-04] MEDS: Furosemide 40 MG Tablet PO (05:59)
[2017-05-04] MEDS: Metoprolol Tartrate 50 MG Tablet PO ×2 (05:59→16:56)
[2017-05-04] MEDS: oxyCODONE 5 MG Tablet 10 MG PO ×3 (05:59→21:00)
[2017-05-04] MEDS: Levothyroxine 100 MCG Tablet PO (05:59)
[2017-05-04] MEDS: Magnesium Oxide 400 MG Tablet PO (08:07)
[2017-05-04] MEDS: Pantoprazole Sodium 40 MG Tablet PO (08:07)
[2017-05-04] MEDS: Iron Polysaccharide Complex 150 MG CAPSULE PO (08:07)
[2017-05-04] MEDS: Clopidogrel Bisulfate 75 MG Tablet PO (08:07)
[2017-05-04] MEDS: Aspirin E.C. 325 MG Tablet PO ×2 (08:07→16:55)
[2017-05-04] MEDS: Gabapentin 300 MG Capsule PO ×2 (08:15→16:56)
[2017-05-04 09:18] VITALS: PULSE 67; RESP 16; O2SAT 94
[2017-05-04 15:27] VITALS: BP 127/52; PULSE 76; RESP 18; TEMP 36.8; O2SAT 95
[2017-05-04 16:56] VITALS: BP 127/52; PULSE 76
[2017-05-04] MEDS: Atorvastatin Calcium 20 MG Tablet PO (21:01)
[2017-05-04] MEDS: Citalopram 20 MG Tablet PO (21:02)
[2017-05-05] MEDS: oxyCODONE 5 MG Tablet 10 MG PO ×2 (06:28→20:40)
[2017-05-05] MEDS: Clopidogrel Bisulfate 75 MG Tablet PO (06:30)
[2017-05-05] MEDS: Levothyroxine 100 MCG Tablet PO (06:30)
[2017-05-05] MEDS: Furosemide 40 MG Tablet PO (06:30)
[2017-05-05] MEDS: Aspirin E.C. 325 MG Tablet PO ×2 (06:31→17:21)
[2017-05-05] MEDS: Pantoprazole Sodium 40 MG Tablet PO (06:32)
[2017-05-05 06:36] LABS: Bedside Glucose 102 mg/dL (70-110)
[2017-05-05] MEDS: Gabapentin 300 MG Capsule PO ×2 (08:12→17:21)
[2017-05-05] MEDS: Iron Polysaccharide Complex 150 MG CAPSULE PO (08:12)
[2017-05-05] MEDS: Magnesium Oxide 400 MG Tablet PO (08:12)
[2017-05-05 08:14] VITALS: BP 123/72; PULSE 79
[2017-05-05] MEDS: Metoprolol Tartrate 50 MG Tablet PO ×2 (08:14→18:31)
[2017-05-05 08:19] VITALS: BP 123/72; PULSE 79
[2017-05-05 09:34] LABS: Absolute Lymphocyte Count 2.06 X10^3/ul (0.83-4.51); Absolute Neutrophil Count 4.7 X10^3/uL (2.0-7.7); Basophil# 0.02 X10^3/uL; Basophil% 0.3 % (0-1); Eosinophil# 0.14 X10^3/uL; Eosinophils% 1.9 % (0-5); Lymphocyte # 2.06 X10^3/ul (4.0); Lymphocyte % 28.1 % (19-41); Mean Corp Hgb Conc 30.3 g/gl (32-36); Mean Corpuscular Volume 85.7 fL (81-99); Mean Platelet Vol. 9.3 fl (6.2-12.0); Monocyte# 0.44 X10^3/uL; Neutrophil # 4.66 X10^3/uL (2.7-7.7); Neutrophil % 63.4 % (47-70); Platelet Count 513 K/mm3 (150-450); RBC Distribution Width SD 49.3 fl (35.1-43.9); Red Blood Count 3.85 M/mm3 (4.2-5.4); White Blood Count 7.3 K/mm3 (4.4-11.0)
[2017-05-05 09:53] LABS: POSITIVE COUNT NO; POSITIVE DIFFERENTIAL NO; POSITIVE MORPHOLOGY NO
[2017-05-05 10:00] VITALS: PULSE 68; RESP 18; O2SAT 95
[2017-05-05 10:01] LABS: Anion Gap 9 (5-15); BUN 12 mg/dL (7-18); BUN/Creat Ratio 13.8 RATIO (10-20); Calcium,Total 8.6 mg/dL (8.5-10.1); Chloride 101 mmol/L (98-107); Creatinine, Serum 0.87 mg/dL (0.55-1.02); EST Glomerular Filtration Rate 71 mL/min (>60); Est Glom Filt Rate - Afr Amer 86 mL/min (>60); Estimated Creatinine Clearance 60.87 ml/min; Glucose 191 mg/dL (74-106); Potassium 3.9 mmol/L (3.5-5.1); Sodium Level 138 mmol/L (136-145)
[2017-05-05 15:27] VITALS: BP 112/48; PULSE 68; RESP 16; TEMP 36.8; O2SAT 94
[2017-05-05] MEDS: Acetaminophen 500 MG Tablet 1000 MG PO (18:30)
[2017-05-05 18:31] VITALS: BP 112/48; PULSE 68
[2017-05-05] MEDS: Citalopram 20 MG Tablet PO (20:20)
[2017-05-05] MEDS: Atorvastatin Calcium 20 MG Tablet PO (20:20)
[2017-05-06] MEDS: Levothyroxine 100 MCG Tablet PO (06:05)
[2017-05-06] MEDS: Pantoprazole Sodium 40 MG Tablet PO (06:05)
[2017-05-06] MEDS: Furosemide 40 MG Tablet PO (06:05)
[2017-05-06] MEDS: Clopidogrel Bisulfate 75 MG Tablet PO (08:13)
[2017-05-06] MEDS: Magnesium Oxide 400 MG Tablet PO (08:13)
[2017-05-06] MEDS: Gabapentin 300 MG Capsule PO ×2 (08:13→16:49)
[2017-05-06 08:14] VITALS: BP 128/57; PULSE 73
[2017-05-06] MEDS: Aspirin E.C. 325 MG Tablet PO ×2 (08:14→16:49)
[2017-05-06] MEDS: Iron Polysaccharide Complex 150 MG CAPSULE PO (08:14)
[2017-05-06] MEDS: Metoprolol Tartrate 50 MG Tablet PO ×2 (08:14→21:56)
[2017-05-06 08:17] VITALS: BP 128/57; PULSE 73
[2017-05-06] MEDS: oxyCODONE 5 MG Tablet 10 MG PO ×2 (09:45→23:30)
[2017-05-06 09:47] VITALS: PULSE 62; RESP 18; O2SAT 96
--- NOTE | 2017-05-06 10:50 | NURSING ---
PT REFUSED TO GET DRESSED AND REFUSED TEDHOSE TODAY.
[2017-05-06 15:20] VITALS: BP 128/60; PULSE 72; RESP 18; TEMP 37.2; O2SAT 99
[2017-05-06 21:56] VITALS: BP 117/82; PULSE 64
[2017-05-06] MEDS: Atorvastatin Calcium 20 MG Tablet PO (21:56)
[2017-05-06] MEDS: Citalopram 20 MG Tablet PO (21:56)
[2017-05-07] MEDS: Levothyroxine 100 MCG Tablet PO (05:44)
[2017-05-07] MEDS: Pantoprazole Sodium 40 MG Tablet PO (05:44)
[2017-05-07] MEDS: Furosemide 40 MG Tablet PO (05:45)
[2017-05-07 07:48] VITALS: PULSE 64
[2017-05-07] MEDS: Metoprolol Tartrate 50 MG Tablet PO ×2 (07:48→19:59)
[2017-05-07] MEDS: Magnesium Oxide 400 MG Tablet PO (07:48)
[2017-05-07] MEDS: Gabapentin 300 MG Capsule PO ×2 (07:48→16:49)
[2017-05-07] MEDS: Clopidogrel Bisulfate 75 MG Tablet PO (07:48)
[2017-05-07] MEDS: Aspirin E.C. 325 MG Tablet PO ×2 (07:49→16:49)
[2017-05-07] MEDS: Iron Polysaccharide Complex 150 MG CAPSULE PO (07:49)
[2017-05-07] MEDS: oxyCODONE 5 MG Tablet 10 MG PO ×3 (08:40→21:59)
[2017-05-07 09:42] VITALS: PULSE 93; RESP 16; O2SAT 92
--- NOTE | 2017-05-07 15:30 | CASEMGMT ---
Social Work Telephone call to Building [address] ([facility]). This social science analyst faxing outpatient physical therapy order. Therapy at [facility] to contact resident to set up appointment. Spoke with resident in room. This socia worker communicating above information. Resident voicing understanding. Resident voicing to have a walker already set up within the home and to have no further medical equipment needs. Resident spouse plans to provide transportation home for resident at time of discharge. Resident voicing no further needs and declining for this social science analyst to contact resident spouse in regards to discharge planning as resident has been in communication with spouse. Support given. Proposed discharge date: 05/09/17 PLAN: Discharge home with spouse with outpatient physical therapy. Michelle BATISTA, WATER MAIN INSPECTOR
[2017-05-07 15:41] VITALS: BP 136/75; PULSE 73; RESP 18; TEMP 36.5; O2SAT 95
[2017-05-07 19:59] VITALS: BP 123/66; PULSE 75
[2017-05-07] MEDS: Atorvastatin Calcium 20 MG Tablet PO (19:59)
[2017-05-07] MEDS: Citalopram 20 MG Tablet PO (20:00)
[2017-05-08] MEDS: Levothyroxine 100 MCG Tablet PO (06:56)
[2017-05-08 07:00] VITALS: PULSE 76; RESP 16
[2017-05-08] MEDS: Pantoprazole Sodium 40 MG Tablet PO (08:14)
[2017-05-08] MEDS: Gabapentin 300 MG Capsule PO ×2 (08:14→16:42)
[2017-05-08] MEDS: Polyethylene Glycol 3350 17 GM PACKET PO (08:14)
[2017-05-08] MEDS: Clopidogrel Bisulfate 75 MG Tablet PO (08:14)
[2017-05-08 08:15] VITALS: BP 123/60; PULSE 75
[2017-05-08] MEDS: Furosemide 40 MG Tablet PO (08:15)
[2017-05-08] MEDS: Aspirin E.C. 325 MG Tablet PO ×2 (08:15→16:42)
[2017-05-08] MEDS: Iron Polysaccharide Complex 150 MG CAPSULE PO (08:15)
[2017-05-08] MEDS: Metoprolol Tartrate 50 MG Tablet PO ×2 (08:15→20:25)
[2017-05-08] MEDS: Magnesium Oxide 400 MG Tablet PO (08:15)
[2017-05-08] MEDS: oxyCODONE 5 MG Tablet 10 MG PO ×3 (08:20→20:33)
[2017-05-08 08:22] VITALS: BP 123/60; PULSE 75
[2017-05-08 15:33] VITALS: BP 141/60; PULSE 84; RESP 18; TEMP 37.1; O2SAT 96
[2017-05-08 20:25] VITALS: BP 124/70; PULSE 78
[2017-05-08] MEDS: Citalopram 20 MG Tablet PO (20:25)
[2017-05-08] MEDS: Atorvastatin Calcium 20 MG Tablet PO (20:26)
[2017-05-09] MEDS: Levothyroxine 100 MCG Tablet PO (07:02)
[2017-05-09 07:07] VITALS: PULSE 68; RESP 18; O2SAT 95
[2017-05-09 07:47] VITALS: PULSE 68
[2017-05-09] MEDS: Aspirin E.C. 325 MG Tablet PO (07:47)
[2017-05-09] MEDS: Metoprolol Tartrate 50 MG Tablet PO (07:47)
[2017-05-09] MEDS: Iron Polysaccharide Complex 150 MG CAPSULE PO (07:47)
[2017-05-09] MEDS: Furosemide 40 MG Tablet PO (07:47)
[2017-05-09] MEDS: Magnesium Oxide 400 MG Tablet PO (07:47)
[2017-05-09] MEDS: Gabapentin 300 MG Capsule PO (07:48)
[2017-05-09] MEDS: Pantoprazole Sodium 40 MG Tablet PO (07:48)
[2017-05-09] MEDS: Clopidogrel Bisulfate 75 MG Tablet PO (07:48)
[2017-05-09] MEDS: Acetaminophen 500 MG Tablet 1000 MG PO (07:52)
[2017-05-09 10:10] VITALS: BP 110/54; PULSE 68; RESP 18; TEMP 36.8; O2SAT 96
[2017-05-09 12:14] VITALS: BP 110/54; PULSE 68
--- NOTE | 2017-05-16 15:58 | MDS.RN ---
Information for the mds was obtained from review of the clinical record, interview of resident, staff, and direct observation of resident's care.
== END 2017-05-09 12:09 | disposition home or self-care (01) | DRG 561 ==
PROVIDERS: Admitting Provider Family Medicine Geriatric Medicine; Family Provider Family Medicine; PCP Family Medicine; Visit Provider Family Medicine Geriatric Medicine
DX: Z47.1 Aftercare following joint replacement surgery (principal); I27.20 Pulmonary hypertension, unspecified; E66.01 Morbid (severe) obesity due to excess calories; E03.9 Hypothyroidism, unspecified; E78.5 Hyperlipidemia, unspecified; I25.10 Atherosclerotic heart disease of native coronary artery without angina pectoris; Z96.652 Presence of left artificial knee joint; I25.2 Old myocardial infarction; K21.9 Gastro-esophageal reflux disease without esophagitis; I10 Essential (primary) hypertension; F32.9 Major depressive disorder, single episode, unspecified; G89.29 Other chronic pain; M54.9 Dorsalgia, unspecified; J44.9 Chronic obstructive pulmonary disease, unspecified; Z79.899 Other long term (current) drug therapy; Z68.34 Body mass index [BMI] 34.0-34.9, adult; Z87.891 Personal history of nicotine dependence; Z71.3 Dietary counseling and surveillance
CPT/HCPCS: 36415; 80048; 82962; 85025; 97110; 97116; 97162; 97166; 97530; 97535; 97802

== ENCOUNTER → 2017-06-06 09:50 | Outpatient (CLI) | payer MEDICARE, SELFPAY ==
--- NOTE | 2017-06-06 09:53 | RAD_ITS ---
STUDY: X-RAY - LEFT KNEE REASON FOR EXAM: Female, 56 years old. Postsurgical TECHNIQUE: 4 view(s) of the knee. COMPARISON: None. FINDINGS: Total left knee arthroplasty. Normal visualized proximal tibia and fibula. Normal proximal tibiofibular articulation. Normal medial femorotibial compartment. Normal lateral femorotibial compartment. Normal patellofemoral articulation. There is a soft tissue prominence in the suprapatellar region suggesting a small volume joint effusion. The soft tissue structures are unremarkable. RAD/Knee 4 or More Views IMPRESSION: There is a soft tissue prominence in the suprapatellar region suggesting a small volume joint effusion. Electronically Signed: Contreras Ortega MD at 21:18 EDT , Service support ,
== END ==
PROVIDERS: Family Provider Family Medicine; PCP Family Medicine; Visit Provider Orthopaedic Surgery
DX: M25.562 Pain in left knee (principal); Z96.652 Presence of left artificial knee joint
CPT/HCPCS: 73564

== ENCOUNTER 2017-06-12 06:15 | Day surgery (SDC) | payer MEDICARE, SELFPAY ==
[2017-06-12] VITALS (7 sets, daily range): BP systolic 128–171; BP diastolic 55–90; PULSE 62–77; RESP 16; TEMP 36.4–36.8; O2SAT 92–97; BMI 39.3
--- NOTE | 2017-06-12 08:19 | DCINST_ITS ---
Discharge Activity: Return to Normal Activity, May not drive while taking narcotic pain medications., May Shower, Use Walker May shower in (days): 1 May resume sexual activity in: No Restrictions Weight Bearing Status: Weight bearing as tolerated Keep extremity elevated above heart level: Left Leg Additional Activity Instructions:: Work on gaining flexion in full extension. Call your doctor if your incision/area has: Continuous Slow Oozing, Sudden Increased Bleeding, Increased Pain/ Swelling, Increased Redness, Foul Smelling Discharge Call your doctor if you observe: Fever of 101 or Higher, Coldness, Increased Pain, Numbness or Tingling, Change in Color, Calf discomfort Cleanse incision/area with: Soap & Water Allergies/Adverse Reactions: Allergies No Known Allergies Allergy (Verified 06/11/17 10:02) Medications to take at Discharge Levothyroxine [Synthroid] 100 mcg PO DAILY 04/17/14 Magnesium Oxide [Mag-Ox 400] 400 mg PO DAILY 04/17/14 Metoprolol Tartrate [Lopressor (beta mayo)] 50 mg PO BID 04/17/14 Simvastatin [Zocor] 40 mg PO QHS 04/17/14 Gabapentin [Gralise] 600 mg PO QHS 04/29/15 Albuterol Inhaler [Ventolin Hfa] 1 - 2 puff INHALATION Q4H PRN PRN 07/11/16 Citalopram [Celexa] 20 mg PO QHS 07/11/16 Nitroglycerin [Nitrostat] 0.4 mg SUBLINGUAL Q5M PRN #1 bottle 01/04/17 proMETHazine tablet [Phenergan tablet] 25 mg PO Q4H PRN PRN #10 tab 04/18/17 Clopidogrel Bisulfate [Plavix] 75 mg PO DAILY tab 05/01/17 Senna/Docusate Sodium [Senokot-S] 2 tab PO BID PRN PRN #120 tab 05/01/17 oxycodone-acetaminophen 5 mg-325 mg tablet See Label Instructions PO .COMPLEX # 60 tab 05/25/17 Aspirin [Adult Aspirin Regimen] 81 mg PO DAILY 06/11/17 Omeprazole 20 mg PO DAILY 06/11/17 Polyethylene Glycol 3350 [Miralax] 17 gm PO DAILY PRN 06/11/17 Docusate Sodium [Colace] 100 mg PO BID PRN PRN #10 cap 06/12/17 Hydrocodone Bitart/Apap 5-325 [[place] 5/325] 1 - 2 tablet PO Q6H PRN PRN #60 tablet 06/12/17 proMETHazine tablet [Phenergan] 25 mg PO Q4H PRN PRN #10 tab 06/12/17 The following prescriptions were given: proMETHazine tablet [Phenergan] 25 mg PO Q4H PRN PRN #10 tab PRN Reason: Nausea Hydrocodone Bitart/Apap 5-325 [[place] 5/325] 1 - 2 tablet PO Q6H PRN PRN #60 tablet PRN Reason: Pain Docusate Sodium [Colace] 100 mg PO BID PRN PRN #10 cap PRN Reason: Constipation Primary Care Physician: Dawn Rivera MD [Primary Care Provider] - Please Follow Up With: Howard Ramachandran DO When: call [facility] for appt for 2 weeks Proposed Discharge Date: 06/12/17
--- NOTE | 2017-06-12 08:29 | OP.PN_ITS ---
Immediate Post-Op Note Date of Procedure: 06/12/17 Primary Surgeon/Physician: Howard Ramachandran, overhead cleaner maintainer: none Pre-Operative Diagnosis: Left knee stiffness status post left total knee arthroplasty Post-Operative Diagnosis: Same as above Surgery/Procedure Performed:: Left knee manipulation under anesthesia Description of Surgical Findings:: See dictation Estimated Blood Loss: 0 Specimen's removed: None ASA Class: ASA2 Mod Systematic Disease - Admit VTE Documentation VTE Present on Admission: No VTE Mechan Device Prophylaxis: SCD's, Knee High JOSE DE JESUS Hose VTE Pharm Prophylaxis ordered?: No
--- NOTE | 2017-06-12 08:41 | PCM.OPRPT ---
Report of Operation Date of Procedure: 06/12/17 Pre-Operative Diagnosis: Left knee stiffness status post left total knee arthroplasty Post-Operative Diagnosis: Same as above Surgery/Procedure Performed:: Left knee manipulation under anesthesia Description of Surgical Findings:: 56-year-old female roughly 6 weeks status post left total knee arthroplasty. Patient was having continued loss of range of motion and I felt that she required a manipulation or anesthesia. Patient's range of motion in office was around 5-90 at best. Appropriate counseling sent patient agreed to the aforementioned procedure. She is met in the holding area where the left lower extremity was marked and identified by the with surgeon. Patient was taken to the operating room in satisfactory condition with somewhat to place to identify patient operative procedure and limb. No antibiotics. Patient underwent a general anesthesia. Patient then underwent a gentle manipulation or anesthesia. Initially started in full extension to bring her into neutral mechanical alignment with obvious crepitus from the adhesion breakdown. Her range of motion to flexion as started was even under anesthesia was only 90?. At that point time gentle flexion given my hand at the proximal tibia allowed gentle range of motion to about 125? of knee flexion. I then gently manipulated the patella from medial to lateral to break up some the other further adhesions across her anterior fat pad. Upon completion of the manipulation I felt the patient had 0-125? of range of motion. Patient will be extubated and then returned to recovery room. Patient will start early aggressive range of motion tomorrow with physical therapy. Patient will follow with me in approximately 1 week to make sure that were not falling behind. I will contact her cable inspector to see if I can put her on a course of oral steroids to aid with some of the inflammation around the knee itself. Any major issues return. Patient agrees with plan. luncheonette operator: none Type of Anesthesia:: General Specimen's removed: None Estimated Blood Loss (mL): 0 - Complications none - Admit VTE Documentation VTE Present on Admission: No VTE Mechan Device Prophylaxis: SCD's, Knee High JOSE DE JESUS Hose VTE Pharm Prophylaxis ordered?: No
--- NOTE | 2017-06-12 08:44 | OP.PCM_ITS ---
Report of Operation Date of Procedure: 06/12/17 Pre-Operative Diagnosis: Left knee stiffness status post left total knee arthroplasty Post-Operative Diagnosis: Same as above Surgery/Procedure Performed:: Left knee manipulation under anesthesia Description of Surgical Findings:: 56-year-old female roughly 6 weeks status post left total knee arthroplasty. Patient was having continued loss of range of motion and I felt that she required a manipulation or anesthesia. Patient's range of motion in office was around 5-90 at best. Appropriate counseling sent patient agreed to the aforementioned procedure. She is met in the holding area where the left lower extremity was marked and identified by the with surgeon. Patient was taken to the operating room in satisfactory condition with somewhat to place to identify patient operative procedure and limb. No antibiotics. Patient underwent a general anesthesia. Patient then underwent a gentle manipulation or anesthesia. Initially started in full extension to bring her into neutral mechanical alignment with obvious crepitus from the adhesion breakdown. Her range of motion to flexion as started was even under anesthesia was only 90?. At that point time gentle flexion given my hand at the proximal tibia allowed gentle range of motion to about 125? of knee flexion. I then gently manipulated the patella from medial to lateral to break up some the other further adhesions across her anterior fat pad. Upon completion of the manipulation I felt the patient had 0-125? of range of motion. Patient will be extubated and then returned to recovery room. Patient will start early aggressive range of motion tomorrow with physical therapy. Patient will follow with me in approximately 1 week to make sure that were not falling behind. I will contact her library attendant to see if I can put her on a course of oral steroids to aid with some of the inflammation around the knee itself. Any major issues return. Patient agrees with plan. enrollment management manager: none Type of Anesthesia:: General Specimen's removed: None Estimated Blood Loss (mL): 0 - Complications none - Admit VTE Documentation VTE Present on Admission: No VTE Mechan Device Prophylaxis: SCD's, Knee High JOSE DE JESUS Hose VTE Pharm Prophylaxis ordered?: No
--- NOTE | 2017-06-12 09:15 | RAD_ITS ---
STUDY: X-RAY - LEFT KNEE REASON FOR EXAM: Female, 56 years old. Left knee replacement. TECHNIQUE: 3 view(s) of the knee. COMPARISON: Comparison is made with prior study dated May 29, 2017. FINDINGS: Normal visualized distal femur. Normal visualized proximal tibia and fibula. Normal proximal tibiofibular articulation. The patient is status post left knee arthroplasty. There is good alignment. Soft tissue swelling. Residual joint effusion. RAD/Knee 3 Views IMPRESSION: Status post total knee replacement. There is good alignment. Persistent small joint effusion and overlying soft tissue swelling. Electronically Signed: Dom Benavides MD at 10:14 EDT Tel [phone], Service support ,
== END 2017-06-12 10:49 | disposition home or self-care (01) ==
LOC: SDC 06:15 → AC 06:18
PROVIDERS: Family Provider Family Medicine; PCP Family Medicine; Visit Provider Orthopaedic Surgery
PROC: (CPT 27570; principal; 2017-06-12 08:05)
DX: M25.662 Stiffness of left knee, not elsewhere classified (principal); F32.9 Major depressive disorder, single episode, unspecified; E78.00 Pure hypercholesterolemia, unspecified; K21.9 Gastro-esophageal reflux disease without esophagitis; Z79.899 Other long term (current) drug therapy; I25.10 Atherosclerotic heart disease of native coronary artery without angina pectoris; I25.2 Old myocardial infarction; Z95.5 Presence of coronary angioplasty implant and graft; I47.1 Supraventricular tachycardia; Z79.02 Long term (current) use of antithrombotics/antiplatelets; Z79.82 Long term (current) use of aspirin; G47.30 Sleep apnea, unspecified; J44.9 Chronic obstructive pulmonary disease, unspecified; Z87.891 Personal history of nicotine dependence; E66.01 Morbid (severe) obesity due to excess calories; Z71.3 Dietary counseling and surveillance; I11.0 Hypertensive heart disease with heart failure; I50.31 Acute diastolic (congestive) heart failure; E03.9 Hypothyroidism, unspecified; Z68.39 Body mass index [BMI] 39.0-39.9, adult
CPT/HCPCS: 27570; 73562; J7120

== ENCOUNTER 2017-12-16 15:19 | Emergency (ER) | payer MEDICARE, SELFPAY ==
[2017-12-16 15:19] VITALS: BP 122/71; PULSE 59; RESP 16; TEMP 36.5; O2SAT 94; BMI 38.0
--- NOTE | 2017-12-16 15:32 | EKG12_ITS ---
Test Reason : DYSRHYTHMIA Blood Pressure : / mmHG Vent. Rate : 062 BPM Atrial Rate : 062 BPM P-R Int : 116 ms QRS Dur : 082 ms QT Int : 456 ms P-R-T Axes : 037 043 050 degrees QTc Int : 462 ms Normal sinus rhythm Low voltage QRS Borderline ECG Confirmed by KIMBERLY BORGES, PHILLIP ([id number]), marketing editor HERLINDA LEON ([id number]) on 12/17/2017 2:16:22 PM Referred By: OLIVER Confirmed By:PHILLIP HARRIS MD
--- NOTE | 2017-12-16 15:35 | ED.VISSUMM ---
- ER Visit Summary Date of Service: 12/16/17 Chief Complaint: Dizziness History of Present Illness: The patient is a 57 F presenting with vertigo which started when waking this morning. She states when she turns her head or stands up she has a spinning sensation. She has had this remotely in the past. She denies any weakness or numbness. Denies speech or vision changes. She complains of a mild headache. Denies fever or other complaints. Physical Examination: Vitals are stable. Patient is afebrile. Alert no acute distress. HEENT exam is unremarkable. TMs normal bilaterally Neck is supple. Lungs are clear and equal bilaterally. Heart is regular rate and rhythm. Abdomen is soft nontender nondistended. Extremities are unremarkable. Skin is warm and dry. No focal neurologic deficit. Normal strength and sensation Remainder of exam is unremarkable. Emergency Department Course and Treatment: Patient was given IV fluids, Valium. EKG is sinus rate of 62, unchanged from previous. CBC, chemistries unremarkable. Troponin is negative. Patient is feeling improved on reevaluation. She is able to ambulate in the ED without difficulty. She is given a prescription for meclizine. She is advised to follow-up with her primary care physician. Advised return to ED for any worsening complaints. Disposition: Discharge home Impression: Benign positional vertigo This note was generated with [employer] dictation software. It may contain incorrect words, spelling, and punctuation that were not noted in review of the chart prior to signing ED Disposition - Plan for ED Patient: Chief Complaint: Dizziness Referrals: Dawn Rivera MD [Primary Care Provider] -
[2017-12-16] MEDS: diazePAM 5 MG Tablet PO (15:58)
[2017-12-16 16:02] VITALS: BP 125/55; PULSE 60; RESP 10; O2SAT 95
[2017-12-16 16:03] LABS: Absolute Lymphocyte Count 1.84 X10^3/ul (0.83-4.51); Absolute Neutrophil Count 4.1 X10^3/uL (2.0-7.7); Basophil# 0.02 X10^3/uL; Basophil% 0.3 % (0-1); Eosinophil# 0.07 X10^3/uL; Eosinophils% 1.1 % (0-5); Hematocrit 39.7 % (37-47); Hemoglobin 12.8 g/dl (12.0-15.0); Lymphocyte # 1.84 X10^3/ul (4.0); Lymphocyte % 28.6 % (19-41); Mean Corp Hgb Conc 32.2 g/gl (32-36); Mean Corpuscular Hgb 29.1 pg (27.0-32.0); Mean Corpuscular Volume 90.2 fL (81-99); Mean Platelet Vol. 9.6 fl (6.2-12.0); Monocyte# 0.44 X10^3/uL; Monocyte% 6.8 % (0-10); Neutrophil # 4.05 X10^3/uL (2.7-7.7); POSITIVE COUNT NO; POSITIVE DIFFERENTIAL NO; POSITIVE MORPHOLOGY NO; Platelet Count 254 K/mm3 (150-450); RBC Distribution Width CV 13.6 % (11.6-14.6); RBC Distribution Width SD 44.9 fl (35.1-43.9); White Blood Count 6.4 K/mm3 (4.4-11.0)
[2017-12-16 16:14] LABS: Anion Gap 7 (5-15); BUN 10 mg/dL (7-18); BUN/Creat Ratio 14.6 RATIO (10-20); Calcium,Total 8.8 mg/dL (8.5-10.1); Chloride 106 mmol/L (98-107); Creatinine, Serum 0.68 mg/dL (0.55-1.02); EST Glomerular Filtration Rate 93 mL/min (>60); Est Glom Filt Rate - Afr Amer 113 mL/min (>60); Estimated Creatinine Clearance 63.98 ml/min; Glucose 105 mg/dL (74-106); Potassium 4.1 mmol/L (3.5-5.1); Sodium Level 140 mmol/L (136-145)
--- NOTE | 2017-12-16 16:43 | ED.DEP ---
ED Disposition - Plan for ED Patient: Chief Complaint: Dizziness Instructions: ED BPV Vertigo Prescriptions: Meclizine HCl 25 mg PO TID PRN PRN #15 tablet PRN Reason: Vertigo Referrals: Dawn Rivera MD [Primary Care Provider] -
[2017-12-16 16:51] VITALS: BP 131/74; PULSE 69; RESP 15; O2SAT 95
== END 2017-12-16 16:52 | disposition home or self-care (01) ==
PROVIDERS: Emergency Provider Emergency Medicine; Family Provider Family Medicine; PCP Family Medicine
DX: H81.10 Benign paroxysmal vertigo, unspecified ear (principal); I25.10 Atherosclerotic heart disease of native coronary artery without angina pectoris; I11.0 Hypertensive heart disease with heart failure; I50.9 Heart failure, unspecified; J44.9 Chronic obstructive pulmonary disease, unspecified; K21.9 Gastro-esophageal reflux disease without esophagitis; E78.00 Pure hypercholesterolemia, unspecified; E03.9 Hypothyroidism, unspecified; Z79.82 Long term (current) use of aspirin; Z79.899 Other long term (current) drug therapy
CPT/HCPCS: 80048; 84484; 85025; 93005; 96360; 99284; J7040; A4216

== ENCOUNTER 2019-02-08 14:24 | Observation (INO) | payer MEDICARE, SELFPAY ==
[2018-04-19 12:28] VITALS: BMI 40.4
[2019-02-08] VITALS (17 sets, daily range): BP systolic 108–198; BP diastolic 60–99; PULSE 67–98; RESP 16–18; TEMP 36.6–37; O2SAT 94–98; BMI 46.5; BMI 43.7
--- NOTE | 2019-02-08 15:14 | EKG12_ITS ---
Test Reason : CP Blood Pressure : / mmHG Vent. Rate : 073 BPM Atrial Rate : 073 BPM P-R Int : 136 ms QRS Dur : 078 ms QT Int : 394 ms P-R-T Axes : 060 021 035 degrees QTc Int : 434 ms Normal sinus rhythm Low voltage QRS Borderline ECG Confirmed by KIMBERLY BORGES, PHILLIP ([id number]), video editor HERLINDA LEON ([id number]) on 02/10/2019 2:44:42 PM Referred By: ALYSHA Confirmed By:PHILLIP HARRIS MD
--- NOTE | 2019-02-08 15:15 | RAD_ITS ---
STUDY: X-RAY CHEST REASON FOR EXAM: Female, 58 years old. Chest pain TECHNIQUE: PA and lateral views of the chest. COMPARISON: 01/03/2017 FINDINGS: The lungs are clear and expanded. There is no demonstrated pleural abnormality. Normal size heart. Normal mediastinum and monico. Normal visualized pulmonary arteries. Normal visualized aortic arch and descending thoracic aorta. Normal visualized thoracic spine. Normal visualized ribs, clavicles, and shoulders. There is no demonstrated abnormality of the visualized soft tissue structures of the upper abdomen. RAD/Chest PA and Lateral IMPRESSION: Normal x-ray examination of the chest. Electronically Signed: Luis Manuel Avina DO at 16:12 EST Tel , Service support ,
--- NOTE | 2019-02-08 15:15 | ED.DCSUM_ITS ---
- ER Visit Summary Date of Service: 02/08/19 Chief Complaint: Chest pain History of Present Illness: The patient is a 58 F who states that she got up today around noon. At 1:00 she has sudden onset of sharp pain lower chest going to her left breast up into her shoulder and down her arm. She states that she was a little bit sweaty and short of breath. This was similar to the pain she experienced in 2013 that led to heart catheterization and stenting. She states that she took a nitroglycerin and it did not help. She took her blood pressure and states it was 180/112 and asked her to take her to the hospital. They stopped at the [facility] department where she received aspirin and a second nitroglycerin. This nitroglycerin relieved her symptoms. She states her last stress test was about 2 years ago. She is on Plavix. She sees Dr. Blair for cardiology. She is asymptomatic at the time of examination Physical Examination: Afebrile vital signs are stable Gen: Well-nourished well-developed obese Head: Normocephalic atraumatic Eyes: Perrl EOMI ENT: TMs clear no rhinorrhea moist mucous membranes Neck: Supple no lymphadenopathy no JVD nontender CVS: Regular rate rhythm no murmurs normal S1-S2 Respiratory: No distress clear to auscultation bilaterally chest nontender Abdomen: Soft nontender nondistended normal bowel sounds no masses Back: Nontender Extremity: Nontender no edema Skin: Normal color no rash Neuro: alert orientated ?3 CN II-XII intact normal strength sensation reflexes gait cerebellar Psych: Normal affect normal mood Test Results: EKG shows a normal sinus rhythm at a rate of 73. No concerning features of ACS. CBC and chemistries are normal. Troponin is 0.072 (this is a 2-hour troponin from onset of symptoms) chest x-ray two-view was negative. Emergency Department Course and Treatment: Patient was pain-free in the department. She received aspirin by EMS. I spoke with Dr. Blair and gave her a dose of Lovenox her plan is admission for further care. Impression: 1. Acute chest pain 2. Elevated troponin This note was generated with [employer] dictation software. It may contain incorrect words, spelling, and punctuation that were not noted in review of the chart prior to signing ED Disposition - Plan for ED Patient: Referrals: Dawn Rivera MD [Primary Care Provider] -
[2019-02-08 15:30] LABS: Absolute Lymphocyte Count 1.56 X10^3/uL (0.83-4.51); Absolute Neutrophil Count 4.6 X10^3/uL (2.0-7.7); Basophil# 0.04 X10^3/uL; Basophil% 0.6 % (0-1); Eosinophil# 0.12 X10^3/uL; Eosinophils% 1.8 % (0-5); Hematocrit 40.6 % (37-47); Hemoglobin 13.3 g/dL (12.0-15.0); Lymphocyte # 1.56 X10^3/ul (4.0); Lymphocyte % 23.2 % (19-41); Mean Corp Hgb Conc 32.8 g/dL (32-36); Mean Corpuscular Hgb 30.6 pg (27.0-32.0); Mean Corpuscular Volume 93.5 fL (81-99); Mean Platelet Vol. 10.2 fl (6.2-12.0); Monocyte# 0.37 X10^3/uL; Monocyte% 5.5 % (0-10); NRBC Flagged by Analyzer 0 % (0-5); Neutrophil % 68.6 % (47-70); Platelet Count 242 K/mm3 (150-450); RBC Distribution Width CV 12.6 % (11.6-14.6); RBC Distribution Width SD 43.6 fl (35.1-43.9); Red Blood Count 4.34 M/mm3 (4.2-5.4); White Blood Count 6.7 K/mm3 (4.4-11.0)
[2019-02-08 15:53] LABS: Anion Gap 9 (5-15); BUN 13 mg/dL (7-18); BUN/Creat Ratio 16.8 RATIO (10-20); Calcium,Total 8.9 mg/dL (8.5-10.1); Chloride 107 mmol/L (98-107); Creatinine, Serum 0.78 mg/dL (0.55-1.02); EST Glomerular Filtration Rate 81 mL/min (>60); Est Glom Filt Rate - Afr Amer 97 mL/min (>60); Estimated Creatinine Clearance 55.09 ml/min; Glucose 122 mg/dL (74-106); Potassium 4.6 mmol/L (3.5-5.1); Sodium Level 140 mmol/L (136-145)
--- NOTE | 2019-02-08 16:50 | HP.PCM_ITS ---
Problem List (1) Chronic diastolic heart failure Status: Chronic (2) History of coronary artery stent placement Status: Chronic Comment: RFK-WZH-Rih-Distal Lcx w/ 2.0 x 20 mm Promus Premier Stent 11/25/13 (3) Essential (primary) hypertension Status: Chronic (4) Atherosclerosis of coronary artery of [place] heart without angina pectoris Status: Chronic Comment: QSP-JMV-Cfd-Distal Lcx w/ 2.0 x 20 mm Promus Premier Stent 11/25/13 (5) Stage 2 moderate COPD by GOLD classification Status: Chronic Comment: FEV1 65% (6) Hyperlipidemia Status: Chronic (7) Other peripheral vascular disease Status: Chronic History of Present Illness Date of Admission: 02/08/19 Chief Complaint: Chest pain. The patient is a 58 year old F patient with past medical history as mentioned above presented to the emergency room because of chest pain. Her symptoms started today around 1 PM when she was going back from the kitchen to her living room, started having retrosternal chest pain, sharp pain, 10 out of 10 in severity, radiates to her left upper extremity on her back, associated with shortness of breath and nausea and without aggravating or relieving factors. She took nitroglycerin at home but it did not help. On the way to the hospital, the squad gave her 4 tablets of aspirin in addition to another nitroglycerin and that seemed to help her pain and her pain improved. At this time, she denies any more pain, her pain is 0 out of 10 now. In the emergency department, her vitals are stable. Her routine blood work was unremarkable. EKG revealed normal sinus rhythm, low voltage QRS, no acute ischemic changes. Troponin was minimally elevated at 0.072. Chest x-ray showed no acute findings. She is being admitted for chest pain with borderline elevated troponin for evaluation. Past Medical History Past Medical History (Chronic Problems): Chronic Problems (Last Updated 02/08/19 @ 16:41 by Salena Yo MD) Chronic diastolic heart failure (Chronic) History of coronary artery stent placement (Chronic 11/25/13) IRX-QTM-Cmd-Distal Lcx w/ 2.0 x 20 mm Promus Premier Stent 11/25/13 Essential (primary) hypertension (Chronic) Nicotine dependence in remission (Chronic) Atherosclerosis of coronary artery of [place] heart without angina pectoris (Chronic) ENS-AIW-Cfd-Distal Lcx w/ 2.0 x 20 mm Promus Premier Stent 11/25/13 Pulmonary hypertension (Chronic) RVSP 31 mmHg Stage 2 moderate COPD by GOLD classification (Chronic) FEV1 65% Hyperlipidemia (Chronic) Other peripheral vascular disease (Chronic) Non-ST elevated myocardial infarction (non-STEMI) (Chronic) Supraventricular tachycardia (Chronic) Medical History: Medical History (Last Updated 02/08/19 @ 16:41 by Salena Yo MD) Chronic diastolic heart failure (Chronic) I50.32 Essential (primary) hypertension (Chronic) I10 Atherosclerosis of coronary artery of [place] heart without angina pectoris (Chronic) I25.10 DVU-KTD-Ydt-Distal Lcx w/ 2.0 x 20 mm Promus Premier Stent 11/25/13 Pulmonary hypertension (Chronic) I27.20 RVSP 31 mmHg Stage 2 moderate COPD by GOLD classification (Chronic) J44.9 FEV1 65% Hyperlipidemia (Chronic) E78.5 Other peripheral vascular disease (Chronic) I73.89 Non-ST elevated myocardial infarction (non-STEMI) (Chronic) I21.4 Supraventricular tachycardia (Chronic) I47.1 Depression F32.9 GERD (gastroesophageal reflux disease) K21.9 Hypothyroidism E03.9 Obesity E66.9 Obstructive sleep apnea G47.33 Osteoarthritis M19.90 Allergies No Known Allergies Allergy (Verified 02/08/19 14:39) Home Medications: Ambulatory Orders Medication Instructions Recorded Levothyroxine [Synthroid] 100 mcg PO DAILY 04/17/14 Metoprolol Tartrate [Lopressor 50 mg PO BID 04/17/14 (beta mayo)] Gabapentin [Gralise] 300 mg PO BID 04/29/15 Citalopram [Celexa] 20 mg PO QHS 07/11/16 Aspirin [Adult Aspirin Regimen] 81 mg PO DAILY 06/11/17 Omeprazole 20 mg PO DAILY 06/11/17 clopidogrel 75 mg tablet 75 mg PO DAILY #90 tab 08/14/18 simvastatin 40 mg tablet 40 mg PO QHS #90 tab 08/14/18 Surgical History: Surgical History (Last Updated 02/08/19 @ 16:41 by Salena Yo MD) History of coronary artery stent placement (Chronic) Onset Date: 11/25/13 Z95.5 MPD-AFS-Xoa-Distal Lcx w/ 2.0 x 20 mm Promus Premier Stent 11/25/13 History of left knee replacement Onset Date: 04/17/17 Z96.652 Surgical History: total knee arthroplasty - Left., - - Tubal ligation, left knee surgery. Coronary artery stent placement 2013 Psychiatric History: Depression APPLICATION DEVELOPMENT CONSULTANT History: No pertinent APPLICATION DEVELOPMENT CONSULTANT history Smoking Status: Former smoker Alcohol: None Drugs: None - *Family History Maternal History Items: No pertinent history Paternal History Items: No pertinent history Review of Systems Constitutional: Denies: Anorexia, Chills, Fever, Weakness Eyes: Denies: Blurred vision, Double vision, Drainage, Redness HEENT: Denies: Difficulty Hearing, Ear Pain, Eye Pain, Nasal Congestion, Sore Throat Cardiovascular: Reports: Chest Pain. Denies: Chest Pressure, Chest Tightness, Edema, Heaviness, Orthopnea, Palpitations, Paroxysmal Noc. Dyspnea, Syncope Respiratory: Reports: Shortness of Breath. Denies: Cough, Hemoptysis, Pleuritic Pain, Sputum production, Wheezing Gastrointestinal: Reports: Nausea. Denies: Abdominal Pain, Constipation, Diarrhea, Vomiting Genitourinary: Denies: Dysuria, Frequency, Hematuria Musculoskeletal: Denies: Arm Pain, Back Pain, Foot Pain Skin: Denies: Dryness, Rash Neurological: Denies: Balance problems, Double vision, Change in Speech, Slurred speech, Confusion, Headaches, Incoordination, Numbness Psychiatric: Denies: Anxiety, Depression Endocrine: Denies: Change in Body Habitus, Polydipsia, Polyuria VTE Information - Inpt Only VTE Present on Admission: No VTE Mechan Device Prophylaxis: None VTE Pharm Prophylaxis ordered?: Yes - Physical Exam Vitals/I&O's: Vital Signs Temp Pulse Resp BP Pulse Ox 98.6 F 70 16 117/60 95 02/08/19 14:28 02/08/19 16:23 02/08/19 16:23 02/08/19 16:23 02/08/19 16:23 Oxygen Delivery Method Room Air Weight: 238 lb 1.588 oz Body Mass Index (BMI) 46.5 General: Alert, Oriented x3, Cooperative, No apparent distress HEENT: Atraumatic, PERRLA, EOMI, Normocephalic Oral: Moist Mucosa, No Gingival or Mucosal Lesions/ Ulcerations Neck: Supple, No JVD, Negative Carotid Bruits, Trachea Midline, Thyroid Normal Size and Texture Lungs: Clear to auscultation, Normal air movement, No rhonchi, No wheeze, No rales Cardiovascular: Regular rate, Regular Rhythm, Normal S1, Normal S2, PMI Normal Abdomen: Bowel Sounds Present, Soft, Non Tender, Non-Distended, No Hepato- splenomegaly Extremities: No clubbing, No cyanosis, No edema Skin: No rashes, No breakdown Lymphatic: No Cervical, Supraclavicular, or Inguinal Adenopathy Neurological: Cranial nerves II-XII grossly intact, Motor Exam 5/5 strength throughout Psych/Mental Status: Normal Affect, Appropriate, Alert and oriented to time, place, person, mood and affect Laboratory Results 02/08/19 14:40: WBC 6.7, RBC 4.34, Hgb 13.3, Hct 40.6, MCV 93.5, MCH 30.6, MCHC 32.8, RDW Std Deviation 43.6, RDW Coeff of [place]ay[place] 12.6, Plt Count 242, MPV 10.2, Immature Gran % (Auto) 0.300, Neut % (Auto) 68.6, Lymph % (Auto) 23.2, [place] % (Auto) 5.5, Eos % (Auto) 1.8, Baso % (Auto) 0.6, Absolute Neuts (auto) 4.6, Absolute Lymphs (auto) 1.56, Nucleated RBC % 0 02/08/19 14:40: Sodium 140, Potassium 4.6, Chloride 107, Carbon Dioxide 24.0, Anion Gap 9, BUN 13, Creatinine 0.78, Estim Creat Clear Calc 55.09, Est GFR (MDRD) Af Amer 97, Est GFR (MDRD) Non-Af 81, BUN/Creatinine Ratio 16.8, Glucose 122 H, Calcium 8.9, Troponin I 0.072 H Clinical Impression(s) from Imaging Studies Chest X-Ray 02/08/19 15:15 IMPRESSION: Normal x-ray examination of the chest. Electronically Signed: Luis Manuel Avina DO at 16:12 EST Tel , Service support , Assessment/Plan This is a 58 years old female patient presented to the emergency room because of chest pain, found to have borderline elevated troponin and she is being admitted for evaluation. #1 chest pain/borderline elevated troponin/?? Unstable angina: EKG reviewed, no acute med changes. First troponin is 0.072. At this time, patient is chest pain-free. Chest x-ray showed no acute findings. Patient received 1 dose of therapeutic Lovenox in the ED according to cardiology recommendation. Dr. Blair was notified by ER physician. Plan: Admit to PCU for observation, cardiac monitoring, serial cardiac enzymes, repeat EKG tomorrow morning, IV fluids, IV morphine PRN, nitroglycerin as needed, cardiology consult, continue aspirin and Plavix as well as metoprolol. #2 CAD status post stents: Plan as above, continue aspirin, Plavix, metoprolol and statins. #3 hypertension: Blood pressure stable, continue metoprolol. #4 hyperlipidemia: Continue statins. #5 hypothyroidism: Stable, continue levothyroxine. #6 DVT prophylaxis: Subcu Lovenox. This note was generated with [employer] dictation software. It may contain incorrect words, spelling, and punctuation that were not noted in checking the note before signing. Code Visit OBSV E&M: 38220 Initial observation care L3
[2019-02-08] MEDS: Enoxaparin 100 MG/ML Syringe SC (16:54)
--- NOTE | 2019-02-08 17:02 | CON.PCM_ITS ---
Reason for Consult Date of Consultation: 02/08/19 Reason for Consultation: Chest discomfort History of Present Illness: The patient is a 58 year old F with a past medical history significant for coronary artery disease status post previous angioplasty and stenting of the left circumflex artery in 2013. She presented in 2017 with chest discomfort underwent stress testing which was normal however the patient insisted on having cardiac catheterization so had a repeat catheterization which demonstrated patency of her previously placed stent. Today while she was sitting she started experiencing chest discomfort which she describes as sharp, midsternal, and worse on taking a deep breath and radiating to her left shoulder. She took nitroglycerin which did not ease her pain she took some aspirin and then drove herself to the fire rescue service squad area. They gave her additional nitroglycerin with improvement in the discomfort. She presented to the emergency room approximately an hour and a half after the onset of the chest discomfort she was pain-free her EKG did not demonstrate any significant abnormalities but her troponin was minimally abnormal. She currently is pain- free. She denies any shortness of breath or paroxysmal nocturnal dyspnea or pedal edema no dizziness or diaphoresis no near syncope or syncope. [] Past Medical History Allergies/Adverse Reactions: Allergies No Known Allergies Allergy (Verified 02/08/19 14:39) Home Medications: Ambulatory Orders Medication Instructions Recorded Levothyroxine [Synthroid] 100 mcg PO DAILY 04/17/14 Metoprolol Tartrate [Lopressor 50 mg PO BID 04/17/14 (beta mayo)] Gabapentin [Gralise] 300 mg PO BID 04/29/15 Citalopram [Celexa] 20 mg PO QHS 07/11/16 Aspirin [Adult Aspirin Regimen] 81 mg PO DAILY 06/11/17 Omeprazole 20 mg PO DAILY 06/11/17 clopidogrel 75 mg tablet 75 mg PO DAILY #90 tab 08/14/18 simvastatin 40 mg tablet 40 mg PO QHS #90 tab 08/14/18 Past Medical History (Chronic Problems): Chronic Problems (Last Updated 02/08/19 @ 16:41 by Salena Yo MD) Chronic diastolic heart failure (Chronic) History of coronary artery stent placement (Chronic 11/25/13) QYH-XKA-Kiv-Distal Lcx w/ 2.0 x 20 mm Promus Premier Stent 11/25/13 Essential (primary) hypertension (Chronic) Nicotine dependence in remission (Chronic) Atherosclerosis of coronary artery of [place] heart without angina pectoris (Chronic) ARA-JWR-Cpb-Distal Lcx w/ 2.0 x 20 mm Promus Premier Stent 11/25/13 Pulmonary hypertension (Chronic) RVSP 31 mmHg Stage 2 moderate COPD by GOLD classification (Chronic) FEV1 65% Hyperlipidemia (Chronic) Other peripheral vascular disease (Chronic) Non-ST elevated myocardial infarction (non-STEMI) (Chronic) Supraventricular tachycardia (Chronic) Surgical History: total knee arthroplasty - Left., - - Tubal ligation, left knee surgery. Coronary artery stent placement 2013 Psychiatric History: Depression COMMUNICATIONS OFFICER History: No pertinent COMMUNICATIONS OFFICER history - *Family History Maternal History Items: No pertinent history Paternal History Items: No pertinent history Smoking Status: Former smoker Alcohol: None Drugs: None Review of Systems - Review of Systems General: Denies: Fever, Night Sweats, Fatigue HEENT: Denies: Vision Change Cardiovascular: Reports: Chest Discomfort at Rest. Denies: Chest Discomfort, Shortness of Breath, Orthopnea, PND, Peripheral Edema, Palpitations, Lightheadedness, Dizziness, Near Syncope, Syncope Respiratory: Denies: Cough, Sputum Production, Hemoptysis Gastrointestinal: Denies: Hematemesis, Hematochezia, Melena Genitourinary: Denies: Dysuria, Hematuria Muscoloskeletal: Denies: Myalgias Skin: Denies: Rash Neurological: Denies: Dizziness Psychiatric: Denies: Anxiety Endocrine: Denies: Unexplained Weight Loss Hematologic/ Lymphatic: Denies: Anemia Subjectve: Pleasant lady in no distress at this time Objective: Vital Signs Temp Pulse Resp BP Pulse Ox 98.6 F 71 16 121/67 H 96 02/08/19 14:28 02/08/19 16:55 02/08/19 16:55 02/08/19 16:55 02/08/19 16:55 Oxygen Delivery Method Room Air Weight: 238 lb 1.588 oz Body Mass Index (BMI) 46.5 General: Awake, Alert, Oriented x 3 HEENT: PERRL, EOMI, Sclera Non Icteric Neck: Supple, Good ROM, No Lymph Node Enlargement Lungs: Clear to auscultation Cardiovascular: Regular Rhythm, Normal S1, Normal S2, No Murmurs, No Rubs, No Gallops Vascular: No Carotid Bruits, Normal Femoral Pulses, Normal Radial Pulses, Normal Dorsalis Pedal Pulse, Normal Posterior Tibial Pulses Abdomen: Bowel Sounds Present, Soft, Non Tender, No HSM, No Organomegaly Extremities: No Cyanosis, No Clubbing, No edema Musculoskeletal: No Erythema Skin: No Rashes Lymphatic: No Lymph Node Enlargement Neurological: No Focal Motor or Sensory Deficit Psych/Mental Status: Appropriate 02/08/19 14:40: WBC 6.7, RBC 4.34, Hgb 13.3, Hct 40.6, MCV 93.5, MCH 30.6, MCHC 32.8, Plt Count 242, MPV 10.2, Immature Gran % (Auto) 0.300, Neut % (Auto) 68.6, Lymph % (Auto) 23.2, [place] % (Auto) 5.5, Eos % (Auto) 1.8, Baso % (Auto) 0.6, Absolute Neuts (auto) 4.6, Nucleated RBC % 0 02/08/19 14:40: Sodium 140, Potassium 4.6, Chloride 107, Carbon Dioxide 24.0, Anion Gap 9, BUN 13, Creatinine 0.78, Est GFR (MDRD) Af Amer 97, Est GFR (MDRD) Non-Af 81, BUN/Creatinine Ratio 16.8, Glucose 122 H, Calcium 8.9, Troponin I 0.072 H Rhythm: EKG: Normal sinus rhythm with no acute changes ECHO: Stress Test: Cardiac Cath: PCI: CT Surgery: Holter monitor: EPS: PPM: CXR: Chest CT Scan: Assessment/Plan 1. Chest pain * Patient presents with chest pain with some atypical features at this particular time. She does have coronary disease substrate but with this presentation and to the laboratory values obtained at this particular time I am not convinced that this is obstructive. * My recommendation of her to continue with serial cardiac enzymes * Continue home medications with aspirin, clopidogrel, beta-mayo, and statin * Lovenox subcu * Depending on the cardiac enzyme patten and rise and fall she may likely be scheduled for stress testing. Unless there is significant ischemia noted I would continue to pursue this pathway. If however the cardiac enzyme pattern is suggestive of a non-ST elevation myocardial infarction then she will be considered for a left heart catheterization. * 2. Hypertension * Good control continue current medical therapy * 3. Hyper lipidemia * Continue with aggressive risk factor modification. * * Thank you for allowing me to participate in the care of your patient. Please don't hesitate to call if any issues arise
--- NOTE | 2019-02-08 17:39 | EKG12_ITS ---
Test Reason : AM EKG Blood Pressure : / mmHG Vent. Rate : 065 BPM Atrial Rate : 065 BPM P-R Int : 136 ms QRS Dur : 080 ms QT Int : 464 ms P-R-T Axes : 055 024 -77 degrees QTc Int : 482 ms Normal sinus rhythm Low voltage QRS Nonspecific T wave abnormality Prolonged QT Abnormal ECG When compared with ECG of 08-FEB-2019 18:49, MANUAL COMPARISON REQUIRED, DATA IS UNCONFIRMED Confirmed by KIMBERLY BORGES, PHILLIP ([id number]), online content editor MONET SUTTON ([id number]) on 02/11/2019 2:56:29 PM Referred By: DR OWENS Confirmed By:PHILLIP HARRIS MD
--- NOTE | 2019-02-08 18:41 | EKG12_ITS ---
Test Reason : CP Blood Pressure : / mmHG Vent. Rate : 094 BPM Atrial Rate : 094 BPM P-R Int : 136 ms QRS Dur : 072 ms QT Int : 368 ms P-R-T Axes : 054 039 085 degrees QTc Int : 460 ms Normal sinus rhythm Low voltage QRS Nonspecific ST and T wave abnormality Abnormal ECG When compared with ECG of 08-FEB-2019 17:33, MANUAL COMPARISON REQUIRED, DATA IS UNCONFIRMED Confirmed by KIMBERLY BORGES, PHILLIP ([id number]), acquisitions editor MONET SUTTON ([id number]) on 02/11/2019 2:58:14 PM Referred By: GRACIELA Confirmed By:PHILLIP HARRIS MD
[2019-02-08] MEDS: 0.9% Normal Saline 1,000 ML 75 ML IV (18:47)
[2019-02-08] MEDS: 0.9% Saline Lock 10 ML Syringe IV (18:48)
[2019-02-08] MEDS: Nitroglycerin (INPATIENT USE) 0.4 MG TAB.SUBL SUBLINGUAL ×3 (18:49→20:46)
[2019-02-08] MEDS: Nitroglycerin Oint 1 INCH PACKET 0.5 INCH TRANSDERM. (20:38)
--- NOTE | 2019-02-08 20:49 | NURSING ---
Addendum entered by Gianna José 02/08/19 21:02: at 2054 pt reports CP now 1/10.VS stable. Will continue to monitor. INDU Gallagher Original Note: Entered pt's room at 2034, pt reports 6/10 CP radiating to L arm and back. Pain is the same quailty it has been since admission. Nitro patch given. At 2045 pt states pain continues to be 6/10. 1 tab nitro sublingual given. BP remains elevated. INDU Gallagher
[2019-02-08] MEDS: cycloBENZAPRine HCl 10 MG Tablet PO (22:05)
[2019-02-08] MEDS: Atorvastatin Calcium 20 MG Tablet PO (22:05)
[2019-02-08] MEDS: Pantoprazole Sodium 20 MG Tablet PO (22:05)
[2019-02-08] MEDS: Citalopram 20 MG Tablet PO (22:05)
[2019-02-08] MEDS: Metoprolol Tartrate 50 MG Tablet PO (22:05)
[2019-02-08] MEDS: Gabapentin 300 MG Capsule PO (22:05)
[2019-02-09] VITALS (15 sets, daily range): BP systolic 89–148; BP diastolic 50–79; PULSE 63–82; RESP 16–18; TEMP 36.5–37; O2SAT 92–96
[2019-02-09] MEDS: Acetaminophen 325 MG Tablet 650 MG PO ×2 (00:26→18:04)
[2019-02-09] MEDS: Levothyroxine 100 MCG Tablet PO (05:46)
--- NOTE | 2019-02-09 05:55 | EKG12_ITS ---
Test Reason : ADMISSION Blood Pressure : / mmHG Vent. Rate : 072 BPM Atrial Rate : 072 BPM P-R Int : 144 ms QRS Dur : 072 ms QT Int : 400 ms P-R-T Axes : 057 031 005 degrees QTc Int : 438 ms Normal sinus rhythm Low voltage QRS Borderline ECG When compared with ECG of 16-DEC-2017 15:42, Nonspecific T wave abnormality now evident in Inferior leads Confirmed by KIMBERLY BORGES, PHILLIP ([id number]), non linear editor MONET SUTTON ([id number]) on 02/11/2019 2:58:28 PM Referred By: GRACIELA Confirmed By:PHILLIP HARRIS MD
[2019-02-09 08:12] LABS: Absolute Lymphocyte Count 2.26 X10^3/uL (0.83-4.51); Absolute Neutrophil Count 2.7 X10^3/uL (2.0-7.7); Basophil# 0.02 X10^3/uL; Basophil% 0.4 % (0-1); Eosinophil# 0.11 X10^3/uL; Hematocrit 38.6 % (37-47); Hemoglobin 12.6 g/dL (12.0-15.0); Lymphocyte # 2.26 X10^3/ul (4.0); Lymphocyte % 41.8 % (19-41); Mean Corp Hgb Conc 32.6 g/dL (32-36); Mean Corpuscular Hgb 30.9 pg (27.0-32.0); Mean Corpuscular Volume 94.6 fL (81-99); Mean Platelet Vol. 10.1 fl (6.2-12.0); Monocyte# 0.36 X10^3/uL; Monocyte% 6.7 % (0-10); NRBC Flagged by Analyzer 0 % (0-5); Neutrophil # 2.65 X10^3/uL (2.7-7.7); Neutrophil % 48.9 % (47-70); Platelet Count 232 K/mm3 (150-450); RBC Distribution Width CV 12.7 % (11.6-14.6); RBC Distribution Width SD 43.9 fl (35.1-43.9); Red Blood Count 4.08 M/mm3 (4.2-5.4); White Blood Count 5.4 K/mm3 (4.4-11.0)
[2019-02-09 08:22] LABS: Anion Gap 5 (5-15); BUN 10 mg/dL (7-18); Calcium,Total 8.4 mg/dL (8.5-10.1); Chloride 108 mmol/L (98-107); Creatinine, Serum 0.77 mg/dL (0.55-1.02); EST Glomerular Filtration Rate 82 mL/min (>60); Est Glom Filt Rate - Afr Amer 99 mL/min (>60); Estimated Creatinine Clearance 55.81 ml/min; Glucose 113 mg/dL (74-106); Potassium 4.1 mmol/L (3.5-5.1); Sodium Level 140 mmol/L (136-145)
[2019-02-09] MEDS: 0.9% Normal Saline 1,000 ML 75 ML IV ×2 (08:22→20:53)
--- NOTE | 2019-02-09 08:28 | PN.CARD_ITS ---
Subjectve: Patient seen and evaluated. Appears to be doing better this morning. Had 2 episodes of chest pain last night which improved with sublingual nitroglycerin. Objective: Vital Signs Temp Pulse Resp BP Pulse Ox 98.5 F 65 18 105/54 L 96 02/09/19 05:45 02/09/19 07:20 02/09/19 05:45 02/09/19 05:47 02/09/19 05:45 Oxygen Flow Rate (L/min) 2 Oxygen Delivery Method Room Air Weight: 223 lb 12.307 oz Body Mass Index (BMI) 43.7 Intake and Output for Last 24 Hours 02/07/19 02/08/19 02/09/19 23:59 23:59 23:59 Intake Total 868.75 / 868.75 611.25 / 611.25 Balance 868.75 / 868.75 611.25 / 611.25 General: Awake, Alert, Oriented x 3 HEENT: PERRL, EOMI, Sclera Non Icteric Neck: Supple, Good ROM, No Lymph Node Enlargement Lungs: Clear to auscultation Cardiovascular: Regular Rhythm, Normal S1, Normal S2, No Murmurs, No Rubs, No Gallops Vascular: No Carotid Bruits, Normal Femoral Pulses, Normal Radial Pulses, Normal Dorsalis Pedal Pulse, Normal Posterior Tibial Pulses Abdomen: Bowel Sounds Present, Soft, Non Tender, No HSM, No Organomegaly Extremities: No Cyanosis, No Clubbing, No edema Musculoskeletal: No Erythema Skin: No Rashes Lymphatic: No Lymph Node Enlargement Neurological: No Focal Motor or Sensory Deficit Psych/Mental Status: Appropriate 02/08/19 14:40: WBC 6.7, RBC 4.34, Hgb 13.3, Hct 40.6, MCV 93.5, MCH 30.6, MCHC 32.8, Plt Count 242, MPV 10.2, Immature Gran % (Auto) 0.300, Neut % (Auto) 68.6, Lymph % (Auto) 23.2, [place] % (Auto) 5.5, Eos % (Auto) 1.8, Baso % (Auto) 0.6, Absolute Neuts (auto) 4.6, Nucleated RBC % 0 02/08/19 14:40: Sodium 140, Potassium 4.6, Chloride 107, Carbon Dioxide 24.0, Anion Gap 9, BUN 13, Creatinine 0.78, Est GFR (MDRD) Af Amer 97, Est GFR (MDRD) Non-Af 81, BUN/Creatinine Ratio 16.8, Glucose 122 H, Calcium 8.9, Troponin I 0.072 H 02/08/19 18:00: Troponin I 0.486 H 02/08/19 21:00: Troponin I 0.493 H 02/09/19 07:40: WBC 5.4, RBC 4.08 L, Hgb 12.6, Hct 38.6, MCV 94.6, MCH 30.9, MCHC 32.6, Plt Count 232, MPV 10.1, Immature Gran % (Auto) 0.200, Neut % (Auto) 48.9, Lymph % (Auto) 41.8 H, [place] % (Auto) 6.7, Eos % (Auto) 2.0, Baso % (Auto) 0.4, Absolute Neuts (auto) 2.7, Nucleated RBC % 0 02/09/19 07:40: Sodium 140, Potassium 4.1, Chloride 108 H, Carbon Dioxide 27.0, Anion Gap 5, BUN 10, Creatinine 0.77, Est GFR (MDRD) Af Amer 99, Est GFR (MDRD) Non-Af 82, BUN/Creatinine Ratio 13.0, Glucose 113 H, Calcium 8.4 L Rhythm: EKG: ECHO: Stress Test: Cardiac Cath: PCI: CT Surgery: Holter monitor: EPS: PPM: CXR: Chest CT Scan: Medical Necessity - Tobacco Use Smoking Status: Former smoker Assessment/Plan 1. Chest pain * Patient presents with chest pain with some atypical features at this particular time. She does have coronary disease substrate. * * Continue home medications with aspirin, clopidogrel, beta-mayo, and statin * Lovenox subcu * Based on the recurrence of the chest discomfort during admission as well as the cardiac enzyme elevation would recommend a left heart catheterization. The risk benefits and alternatives have been explained to her she understands and agrees to proceed. 2. Hypertension * Good control continue current medical therapy * 3. Hyper lipidemia * Continue with aggressive risk factor modification. * * Thank you for allowing me to participate in the care of your patient. Please don't hesitate to call if any issues arise
[2019-02-09] MEDS: Clopidogrel Bisulfate 75 MG Tablet PO (08:52)
[2019-02-09] MEDS: Metoprolol Tartrate 50 MG Tablet PO ×2 (08:52→20:54)
[2019-02-09] MEDS: Pantoprazole Sodium 20 MG Tablet PO (08:52)
[2019-02-09] MEDS: Aspirin E.C. 81 MG Tablet PO (08:53)
[2019-02-09] MEDS: Enoxaparin 40 MG/0.4 ML Syringe SC (08:53)
--- NOTE | 2019-02-09 10:44 | PCM.PROGNOTE ---
<Albino Hurtado - Last Filed: 02/09/19 10:44> Subjective: Chief complaint -chest pain Chest pain overnight relieved by nitro. Cardiac enzymes with upward trend. Currently no shortness of breath, nausea, lightheadedness or dizziness. Mild lower extremity edema. Pt agreeable to cath in AM. - Physical Exam Vitals/I&O's: Vital Signs Temp Pulse Resp BP Pulse Ox 97.8 F 70 16 123/67 H 96 02/09/19 08:48 02/09/19 08:52 02/09/19 08:48 02/09/19 08:52 02/09/19 08:48 Oxygen Flow Rate (L/min) 2 Oxygen Delivery Method Room Air Weight: 223 lb 12.307 oz Body Mass Index (BMI) 43.7 Intake and Output for Last 24 Hours 02/07/19 02/08/19 02/09/19 23:59 23:59 23:59 Intake Total 868.75 / 868.75 611.25 / 611.25 Balance 868.75 / 868.75 611.25 / 611.25 General: Alert, Oriented x3, Cooperative HEENT: Atraumatic, PERRLA, EOMI, Normocephalic Neck: Supple, No JVD, Negative Carotid Bruits Lungs: Clear to auscultation, Normal air movement Cardiovascular: Regular rate, No murmurs Abdomen: Bowel Sounds Present, Soft, Non Tender, Obese Extremities: No edema, Capillary Refill Less than 3 Seconds Skin: No rashes, No breakdown Musculoskeletal: No Tenderness to Palpation of Joints or Extremities Neurological: Cranial nerves II-XII grossly intact Psych/Mental Status: Normal Affect, Appropriate, Alert and oriented to time, place, person, mood and affect Laboratory Results 02/08/19 14:40: WBC 6.7, RBC 4.34, Hgb 13.3, Hct 40.6, MCV 93.5, MCH 30.6, MCHC 32.8, RDW Std Deviation 43.6, RDW Coeff of Shaylee 12.6, Plt Count 242, MPV 10.2, Immature Gran % (Auto) 0.300, Neut % (Auto) 68.6, Lymph % (Auto) 23.2, [place] % (Auto) 5.5, Eos % (Auto) 1.8, Baso % (Auto) 0.6, Absolute Neuts (auto) 4.6, Absolute Lymphs (auto) 1.56, Nucleated RBC % 0 02/08/19 14:40: Sodium 140, Potassium 4.6, Chloride 107, Carbon Dioxide 24.0, Anion Gap 9, BUN 13, Creatinine 0.78, Estim Creat Clear Calc 55.09, Est GFR (MDRD) Af Amer 97, Est GFR (MDRD) Non-Af 81, BUN/Creatinine Ratio 16.8, Glucose 122 H, Calcium 8.9, Troponin I 0.072 H 02/08/19 18:00: Troponin I 0.486 H 02/08/19 21:00: Troponin I 0.493 H 02/09/19 07:40: WBC 5.4, RBC 4.08 L, Hgb 12.6, Hct 38.6, MCV 94.6, MCH 30.9, MCHC 32.6, RDW Std Deviation 43.9, RDW Coeff of Shaylee 12.7, Plt Count 232, MPV 10.1, Immature Gran % (Auto) 0.200, Neut % (Auto) 48.9, Lymph % (Auto) 41.8 H, [place] % (Auto) 6.7, Eos % (Auto) 2.0, Baso % (Auto) 0.4, Absolute Neuts (auto) 2.7, Absolute Lymphs (auto) 2.26, Nucleated RBC % 0 02/09/19 07:40: Sodium 140, Potassium 4.1, Chloride 108 H, Carbon Dioxide 27.0, Anion Gap 5, BUN 10, Creatinine 0.77, Estim Creat Clear Calc 55.81, Est GFR (MDRD) Af Amer 99, Est GFR (MDRD) Non-Af 82, BUN/Creatinine Ratio 13.0, Glucose 113 H, Calcium 8.4 L Current Medications Acetaminophen (Tylenol) 650 mg PO Q6H PRN PRN PRN Reason: Pain Score 1-3/Temp > 100.7 F Last Admin: 02/09/19 00:26 Dose: 650 mg Documented by: Albuterol Sulfate (Ventolin Aerosols) 2.5 mg INHALATION Q4H PRN PRN PRN Reason: SOB/Wheezing Aspirin (Ecotrin) 81 mg PO DAILYCM [facility] Last Admin: 02/09/19 08:53 Dose: 81 mg Documented by: Atorvastatin Calcium (Lipitor) 20 mg PO QHS [facility] Last Admin: 02/08/19 22:05 Dose: 20 mg Documented by: Citalopram Hydrobromide (Celexa) 20 mg PO QHS [facility] Last Admin: 02/08/19 22:05 Dose: 20 mg Documented by: Clopidogrel Bisulfate (Plavix) 75 mg PO DAILY [facility] Last Admin: 02/09/19 08:52 Dose: 75 mg Documented by: Cyclobenzaprine HCl (Flexeril) 10 mg PO QHS [facility] Last Admin: 02/08/19 22:05 Dose: 10 mg Documented by: Enoxaparin Sodium (Lovenox) 40 mg SC DAILY [facility] Last Admin: 02/09/19 08:53 Dose: 40 mg Documented by: Gabapentin (Neurontin) 300 mg PO BID [facility] Last Admin: 02/09/19 08:54 Dose: Not Given Documented by: Sodium Chloride () 1,000 mls @ 75 mls/hr IV .[id number] [facility] Last Admin: 02/09/19 08:22 Dose: 75 mls/hr Documented by: Sodium Chloride () 1,000 mls @ 15 mls/hr IV .Q48H [facility] Last Admin: 02/09/19 08:54 Dose: Not Given Documented by: Levothyroxine Sodium (Synthroid) 100 mcg PO DAILY@0600 [facility] Last Admin: 02/09/19 05:46 Dose: 100 mcg Documented by: Metoprolol Tartrate (Lopressor (Beta Allan)) 50 mg PO BID [facility] Last Admin: 02/09/19 08:52 Dose: 50 mg Documented by: Morphine Sulfate () 1 - 2 mg IV Q4H PRN PRN PRN Reason: Pain Score 6-10/10 Nitroglycerin (Nitrostat) 0.4 mg SUBLINGUAL Q5M PRN PRN Reason: CARDIAC/CHEST PAIN Last Admin: 02/08/19 20:46 Dose: 1 tab Documented by: Nitroglycerin (Nitrobid) 0.5 inch TRANSDERM. Q6 [facility] Last Admin: 02/09/19 05:47 Dose: Not Given Documented by: Ondansetron HCl (Zofran) 4 mg IV Q8H PRN PRN PRN Reason: NAUSEA/VOMITING Pantoprazole Sodium (Protonix) 20 mg PO DAILY [facility] Last Admin: 02/09/19 08:52 Dose: 20 mg Documented by: Sodium Chloride () 10 - 40 ml IV UD PRN PRN Reason: SALINE FLUSH Last Admin: 02/08/19 18:48 Dose: 10 ml Documented by: Medical Necessity - Tobacco Use Smoking Status: Former smoker Assessment/Plan 1. Chest pain, abnormal troponins-cardiology following, heart catheterization in the morning. 2. History of CAD with prior stent-aspirin, statin, Plavix, Lopressor 3. History of chronic diastolic congestive heart failure-no evidence of acute exacerbation 4. History of COPD - no SOB/wheezing - prn albuterol 5. Hypertension - stable 6. Hyperlipidemia - on statin 7. Morbid obesity - dietary eval 8. Depression - celexa 9. Chronic back pain-continue gabapentin 10. Hypothyroidism-continue Synthroid DVT ppx: lovenox DC Planning: cath in AM This patient was seen by Albino Hurtado PA-C under the supervision of Doctor Angeline. <Vanessa Marcus - Last Filed: 02/09/19 11:36> - Physical Exam Vitals/I&O's: Vital Signs Temp Pulse Resp BP Pulse Ox 97.8 F 70 16 123/67 H 96 02/09/19 08:48 02/09/19 08:52 02/09/19 08:48 02/09/19 08:52 02/09/19 08:48 Oxygen Flow Rate (L/min) 2 Oxygen Delivery Method Room Air Weight: 223 lb 12.307 oz Body Mass Index (BMI) 43.7 Intake and Output for Last 24 Hours 02/07/19 02/08/19 02/09/19 23:59 23:59 23:59 Intake Total 868.75 / 868.75 611.25 / 611.25 Balance 868.75 / 868.75 611.25 / 611.25 Laboratory Results 02/08/19 14:40: WBC 6.7, RBC 4.34, Hgb 13.3, Hct 40.6, MCV 93.5, MCH 30.6, MCHC 32.8, RDW Std Deviation 43.6, RDW Coeff of Shaylee 12.6, Plt Count 242, MPV 10.2, Immature Gran % (Auto) 0.300, Neut % (Auto) 68.6, Lymph % (Auto) 23.2, [place] % (Auto) 5.5, Eos % (Auto) 1.8, Baso % (Auto) 0.6, Absolute Neuts (auto) 4.6, Absolute Lymphs (auto) 1.56, Nucleated RBC % 0 02/08/19 14:40: Sodium 140, Potassium 4.6, Chloride 107, Carbon Dioxide 24.0, Anion Gap 9, BUN 13, Creatinine 0.78, Estim Creat Clear Calc 55.09, Est GFR (MDRD) Af Amer 97, Est GFR (MDRD) Non-Af 81, BUN/Creatinine Ratio 16.8, Glucose 122 H, Calcium 8.9, Troponin I 0.072 H 02/08/19 18:00: Troponin I 0.486 H 02/08/19 21:00: Troponin I 0.493 H 02/09/19 07:40: WBC 5.4, RBC 4.08 L, Hgb 12.6, Hct 38.6, MCV 94.6, MCH 30.9, MCHC 32.6, RDW Std Deviation 43.9, RDW Coeff of Shaylee 12.7, Plt Count 232, MPV 10.1, Immature Gran % (Auto) 0.200, Neut % (Auto) 48.9, Lymph % (Auto) 41.8 H, [place] % (Auto) 6.7, Eos % (Auto) 2.0, Baso % (Auto) 0.4, Absolute Neuts (auto) 2.7, Absolute Lymphs (auto) 2.26, Nucleated RBC % 0 02/09/19 07:40: Sodium 140, Potassium 4.1, Chloride 108 H, Carbon Dioxide 27.0, Anion Gap 5, BUN 10, Creatinine 0.77, Estim Creat Clear Calc 55.81, Est GFR (MDRD) Af Amer 99, Est GFR (MDRD) Non-Af 82, BUN/Creatinine Ratio 13.0, Glucose 113 H, Calcium 8.4 L Current Medications Acetaminophen (Tylenol) 650 mg PO Q6H PRN PRN PRN Reason: Pain Score 1-3/Temp > 100.7 F Last Admin: 02/09/19 00:26 Dose: 650 mg Documented by: Albuterol Sulfate (Ventolin Aerosols) 2.5 mg INHALATION Q4H PRN PRN PRN Reason: SOB/Wheezing Aspirin (Ecotrin) 81 mg PO DAILYCM [facility] Last Admin: 02/09/19 08:53 Dose: 81 mg Documented by: Atorvastatin Calcium (Lipitor) 20 mg PO QHS [facility] Last Admin: 02/08/19 22:05 Dose: 20 mg Documented by: Citalopram Hydrobromide (Celexa) 20 mg PO QHS [facility] Last Admin: 02/08/19 22:05 Dose: 20 mg Documented by: Clopidogrel Bisulfate (Plavix) 75 mg PO DAILY [facility] Last Admin: 02/09/19 08:52 Dose: 75 mg Documented by: Cyclobenzaprine HCl (Flexeril) 10 mg PO QHS [facility] Last Admin: 02/08/19 22:05 Dose: 10 mg Documented by: Enoxaparin Sodium (Lovenox) 40 mg SC DAILY [facility] Last Admin: 02/09/19 08:53 Dose: 40 mg Documented by: Gabapentin (Neurontin) 600 mg PO QHS [facility] Sodium Chloride () 1,000 mls @ 75 mls/hr IV .[id number] [facility] Last Admin: 02/09/19 08:22 Dose: 75 mls/hr Documented by: Sodium Chloride () 1,000 mls @ 15 mls/hr IV .Q48H [facility] Last Admin: 02/09/19 08:54 Dose: Not Given Documented by: Levothyroxine Sodium (Synthroid) 100 mcg PO DAILY@0600 [facility] Last Admin: 02/09/19 05:46 Dose: 100 mcg Documented by: Metoprolol Tartrate (Lopressor (Beta Allan)) 50 mg PO BID [facility] Last Admin: 02/09/19 08:52 Dose: 50 mg Documented by: Morphine Sulfate () 1 - 2 mg IV Q4H PRN PRN PRN Reason: Pain Score 6-10/10 Nitroglycerin (Nitrostat) 0.4 mg SUBLINGUAL Q5M PRN PRN Reason: CARDIAC/CHEST PAIN Last Admin: 02/08/19 20:46 Dose: 1 tab Documented by: Nitroglycerin (Nitrobid) 0.5 inch TRANSDERM. Q6 [facility] Last Admin: 02/09/19 05:47 Dose: Not Given Documented by: Ondansetron HCl (Zofran) 4 mg IV Q8H PRN PRN PRN Reason: NAUSEA/VOMITING Pantoprazole Sodium (Protonix) 20 mg PO DAILY [facility] Last Admin: 02/09/19 08:52 Dose: 20 mg Documented by: Sodium Chloride () 10 - 40 ml IV UD PRN PRN Reason: SALINE FLUSH Last Admin: 02/08/19 18:48 Dose: 10 ml Documented by: Assessment/Plan Patient seen by Albino Hurtado PA-C under my supervision Patient was admitted with a complaint of chest pain. Chest pain was retrosternal, sharp, 10 out of 10 and radiated to the left upper extremity and she had assisted shortness of breath and nausea. EKG showed no acute ST changes initial troponin was 0.072. Troponins however trended up to a peak of around 0.49. She has been managed for non-STEMI cardiology is on board. Is for cardiac cath tomorrow. She is currently on therapeutic Lovenox and statin. Patient seen and examined. Chest pain did not recur overnight and she thinks this is due to the nitro patch that she has on. Review of systems otherwise negative. Labs and vitals reviewed. o/e: Vital Signs Height 5 ft Weight: 223 lb 12.307 oz Weight in Pounds 223.8 lbs Pulse Ox 96 Temperature 97.8 F Pulse Rate 70 Respiratory Rate 16 Blood Pressure [BP] 142/78 Blood Pressure 123/67 Blood Pressure Position [BP] Semi-Fowlers Blood Pressure Position Semi-Fowlers General: Alert, Oriented x3, Cooperative, No apparent distress HEENT: Atraumatic, PERRLA, EOMI, Normocephalic Oral: Moist Mucosa, No Gingival or Mucosal Lesions/ Ulcerations Neck: Supple, No JVD, Negative Carotid Bruits Lungs: Clear to auscultation, Normal air movement, No rhonchi, No wheeze, No rales Cardiovascular: Regular rate, Regular Rhythm, Normal S1, Normal S2, PMI Normal Abdomen: Bowel Sounds Present, Soft, Non Tender, Non-Distended, No Hepato-splenomegaly Extremities: No clubbing, No cyanosis, No edema Skin: No rashes, No breakdown Lymphatic: No Cervical, Supraclavicular, or Inguinal Adenopathy Neurological: Cranial nerves II-XII grossly intact, Motor Exam 5/5 strength throughout Psych/Mental Status: Normal Affect, Appropriate, Alert and oriented to time, place, person, mood and affect Plan is for patient to have cardiac cath tomorrow. Continue aspirin and Plavix as well as Lovenox and metoprolol. Cardiology on board. Rest of management as per Albino Hurtado PA-C's notes which I reviewed and endorsed. Code Visit OBSV E&M: 42424 Subsequent observation care L2
[2019-02-09] MEDS: Nitroglycerin Oint 1 INCH PACKET 0.5 INCH TRANSDERM. ×3 (11:43→23:31)
[2019-02-09] MEDS: cycloBENZAPRine HCl 10 MG Tablet PO (20:54)
[2019-02-09] MEDS: Citalopram 20 MG Tablet PO (20:54)
[2019-02-09] MEDS: Atorvastatin Calcium 20 MG Tablet PO (20:55)
[2019-02-09] MEDS: Gabapentin 600 MG Tablet PO (21:02)
[2019-02-10] VITALS (29 sets, daily range): BP systolic 110–171; BP diastolic 54–87; PULSE 63–86; RESP 13–18; TEMP 36.5–36.6; O2SAT 92–97; BMI 43.7
--- NOTE | 2019-02-10 05:30 | EKG12_ITS ---
Test Reason : AM EKG Blood Pressure : / mmHG Vent. Rate : 067 BPM Atrial Rate : 067 BPM P-R Int : 136 ms QRS Dur : 076 ms QT Int : 496 ms P-R-T Axes : 062 036 263 degrees QTc Int : 524 ms Normal sinus rhythm Low voltage QRS ST & T wave abnormality, consider anterolateral ischemia Prolonged QT Abnormal ECG When compared with ECG of 09-FEB-2019 06:05, MANUAL COMPARISON REQUIRED, DATA IS UNCONFIRMED Confirmed by KIMBERLY BORGES, PHILLIP ([id number]), editor farm journal MONET SUTTON ([id number]) on 02/11/2019 2:53:55 PM Referred By: DR NICOLE Confirmed By:PHILLIP HARRIS MD
[2019-02-10] MEDS: Nitroglycerin Oint 1 INCH PACKET 0.5 INCH TRANSDERM. ×4 (05:41→23:59)
[2019-02-10] MEDS: Aspirin E.C. 81 MG Tablet PO (05:41)
[2019-02-10] MEDS: Metoprolol Tartrate 50 MG Tablet PO ×2 (05:41→21:30)
[2019-02-10] MEDS: Clopidogrel Bisulfate 75 MG Tablet PO (05:42)
[2019-02-10] MEDS: Levothyroxine 100 MCG Tablet PO (05:42)
--- NOTE | 2019-02-10 08:55 | PN.CARD_ITS ---
Subjectve: Seen and evaluated. Objective: Vital Signs Temp Pulse Resp BP Pulse Ox 97.8 F 63 18 110/67 94 02/10/19 05:30 02/10/19 07:29 02/10/19 05:30 02/10/19 05:30 02/10/19 06:52 Oxygen Flow Rate (L/min) 2 Oxygen Delivery Method Room Air Weight: 223 lb 12.307 oz Body Mass Index (BMI) 43.7 Intake and Output for Last 24 Hours 02/08/19 02/09/19 02/10/19 23:59 23:59 23:59 Intake Total 868.75 / 868.75 3517.50 / 3517.50 Balance 868.75 / 868.75 3517.50 / 3517.50 General: Awake, Alert, Oriented x 3 HEENT: PERRL, EOMI, Sclera Non Icteric Neck: Supple, Good ROM, No Lymph Node Enlargement Lungs: Clear to auscultation Cardiovascular: Regular Rhythm, Normal S1, Normal S2, No Murmurs, No Rubs, No Gallops Rhythm: EKG: ECHO: Stress Test: Cardiac Cath: PCI: CT Surgery: Holter monitor: EPS: PPM: CXR: Chest CT Scan: Medical Necessity - Tobacco Use Smoking Status: Former smoker Assessment/Plan 1. Chest pain * Patient presents with chest pain with some atypical features at this particular time. She does have coronary disease substrate. * * Cardiac catheterization today demonstrated the following: Normal left main coronary artery. Left anterior descending artery with no significant stenosis. Left circumflex artery with the previously placed stent which is patent and immediately post stent with a 95% stenotic lesion. Codominant right coronary artery with no high-grade stenosis. Based on the above angiographic findings the patient will be considered for angioplasty and stenting of the [place] circumflex artery. 2. Hypertension * Good control continue current medical therapy * 3. Hyper lipidemia * Continue with aggressive risk factor modification. * * Thank you for allowing me to participate in the care of your patient. Please don't hesitate to call if any issues arise
--- NOTE | 2019-02-10 09:30 | EKG12_ITS ---
Test Reason : PCI Blood Pressure : / mmHG Vent. Rate : 067 BPM Atrial Rate : 067 BPM P-R Int : 144 ms QRS Dur : 066 ms QT Int : 452 ms P-R-T Axes : 053 028 -51 degrees QTc Int : 477 ms Normal sinus rhythm Low voltage QRS T wave abnormality, consider lateral ischemia Prolonged QT Abnormal ECG When compared with ECG of 10-FEB-2019 05:42, MANUAL COMPARISON REQUIRED, DATA IS UNCONFIRMED Confirmed by CHAYITO BORGES, DOLORES ([id number]), associate editor HERLINDA LEON ([id number]) on 02/16/2019 12:12:29 PM Referred By: CHAYITO Confirmed By:HUBER STRATTON MD
--- NOTE | 2019-02-10 09:47 | CL.D_ITS ---
Patient Name: JAMIE WALSH Study Date: 02/10/2019 Performing: Seun Blair MD Ht: 59.84 inches 152 cm : 1960 Wt: 224.87 lbs 102 kg Age: 58 Gender: female BSA: 1.96 PROCEDURE(S) PERFORMED [id number] GUIDED ACCESS FI04-WFF/[id number] W OR WO PTCA, SINGLE CORONARY ARTERY CLINICAL PROFILE AND INDICATIONS Indications: ACS <= 24 hrs Heart Failure: None Stress/Imaging Stress/Image Study Performed: No CAD Presentations: Unstable angina. CONCLUSIONS Severe disease noted of the [place] left circumflex artery distal to the previously placed stent with 90% stenotic lesion noted. RECOMMENDATIONS Referred for immediate PCI DESCRIPTION OF PROCEDURE The patient arrived to the procedure lab. The risks and benefits of the procedure as well as a full d escription of our services here and current unavailability of surgical backup were fully explained to the patient and/or their significant other prior to the catheterization. The Timeout was completed, verifying the correct patient and procedure. The patient's procedural site was prepped and draped in the usual fashion. Local anesthetic was given subcutaneously to right radial region with Lidocaine 2% . Local anesthetic was given subcutaneously to right groin region with Lidocaine 2%. Using a modified Seldinger technique, and ultrasound guidance,arterial access was obtained via the right radial arter y, a 6Fr sheath was inserted. Right Coronary Artery selective angiography was performed in multiple views using a 5 Fr. 4.0 Damascus catheter. Left Coronary Artery selective angiography was performed in m ultiple views using a 5 Fr. 4.0 Damascus catheter.The arterial sheath was pulled and a TR Band was applied for hemostasis CORONARY ANGIOGRAPHY DOMINANCE: Right Dominant LEFT HEART ASSESSMENT Left Ventricular Ejection Fraction: by Echo 60 % Normal Left Ventricular systolic function LEFT MAIN: Angiographically normal LEFT ANTERIOR DESCENDING ARTERY: Mild luminal irregularities CIRCUMFLEX ARTERY: MID CIRC: Previously placed stent is patent DISTAL CIRC: 95 % Stenosis RIGHT CORONARY ARTERY: Mild luminal irregularities less than 30% COMPLICATIONS No Complications PROCEDURE MEDICATIONS Versed 1 mg IV Fentanyl 50 mcg IV Fentanyl 25 mcg IV Fentanyl 25 mcg IV Oxygen: 2 L/min via nasal cannula Heparin diluted in 23cc Heparinized saline. Patient given 10cc IA of this solution. 02/10/2019 08:38: 42 Heparin 6000 unit(s) IV 02/10/2019 08:51:58 Verapamil 2.5mg, Ntg 100mcgs, 2000 units of Heparin diluted in 23cc Heparinized saline. Patient give n 10cc IA of this solution. 02/10/2019 08:38:42 SUMMARY OF HEMODYNAMIC DATA Time AIR REST ECG 07:46:26 AO 118/77 (94) SA 08:40:58 Signed By Seun Blair MD On 02/10/2019 09:47:03 Seun Blair MD
[2019-02-10] MEDS: 0.9% Normal Saline 1,000 ML 75 ML IV (09:57)
--- NOTE | 2019-02-10 10:30 | CL.I_ITS ---
Patient Name: JAMIE WALSH Study Date: 02/10/2019 Performing: Lei Leiva MD Ht: 59.84 inches 152 cm : 1960 Wt: 224.87 lbs 102 kg Age: 58 Gender: female BSA: 1.96 PROCEDURE(S) PERFORMED [id number] W OR WO PTCA, SINGLE CORONARY ARTERY CLINICAL PROFILE AND CO-MORBIDITIES Indications: ACS <= 24 hrs Heart Failure: None Stress/Imaging Stress/Image Study Performed: No CAD Presentations: Unstable angina. CONCLUSIONS Successful PTCA/KP to dLCx RECOMMENDATIONS ASA Indefinitley Plavix for at least 12 months Risk factor modification Follow up with Dr. Blair DESCRIPTION OF PROCEDURE The patient arrived to the procedure lab. The risks and benefits of the procedure as well as a full d escription of our services here and current unavailability of surgical backup were fully explained to the patient and/or their significant other prior to the catheterization. The Timeout was completed, verifying the correct patient and procedure. The patient's procedural site was prepped and draped in the usual fashion. Local anesthetic was given subcutaneously to right radial region with Lidocaine 2% . Local anesthetic was given subcutaneously to right groin region with Lidocaine 2% Using a modified Seldinger technique,and ultrasound guidance,arterial access was obtained via the right radial artery, a 6Fr sheath was inserted. Right Coronary Artery selective angiography was performed in multiple vie ws using a 5 Fr. 4.0 Bernard catheter. Left Coronary Artery selective angiography was performed in mult iple views using a 5 Fr. 4.0 Bernard catheter. XB 3.0 Guide catheter was inserted and engaged into the LCA. [employer] Haughton Guide wire was advance d to the Circumflex. Emerge 2.5 x 12 Balloon catheter was inserted. Balloon catheter was advanced acr oss lesion in the circumflex, distal. PTCA balloon inflated at 10 atms for 14 secs. Synergy 2.5 x 16 Drug Eluting stent was inserted. Drug Eluting stent was advanced across the lesion in the circumflex, distal. Angiogram performed post stent deployment. The arterial sheath was pulled and a TR Band wa s applied for hemostasis INTERVENTION INFORMATION LESION SITE: Circumflex (Distal) Lesion Complexity: High/C, chronic total occlusion: No, lesion at bifurcation: No, thrombus present: No, lesion length: 14 mm, culprit lesion: Yes, Previously treated lesion: No Pre Stenosis: 95 % Pre intervention RIKY flow: 3 PROCEDURE: Drug Eluting Stent with pre dilatation. Post Stenosis: 0 % Post intervention RIKY flow: 3 Lesion Devices: Cardinal 6 Fr XB3.0 100cm Guide Catheter Meek .014 [employer] Haughton Straight 190cm Harinder Sci EMERGE MR 2.50x12 BALLOON Harinder Sci Synergy MR KP 2.50x16 COMPLICATIONS No Complications PROCEDURE MEDICATIONS Versed 1 mg IV Fentanyl 50 mcg IV Fentanyl 25 mcg IV Fentanyl 25 mcg IV Oxygen: 2 L/min via nasal cannula Heparin diluted in 23cc Heparinized saline. Patient given 10cc IA of this solution. 02/10/2019 08:38: 42 Heparin 6000 unit(s) IV 02/10/2019 08:51:58 Verapamil 2.5mg, Ntg 100mcgs, 2000 units of Heparin diluted in 23cc Heparinized saline. Patient give n 10cc IA of this solution. 02/10/2019 08:38:42 SUMMARY OF HEMODYNAMIC DATA Time AIR REST ECG 07:46:26 AO 118/77 (94) SA 08:40:58 Signed By Lei Leiva MD On 02/10/2019 10:29:41 AM Lei Leiva MD
[2019-02-10] MEDS: Pantoprazole Sodium 20 MG Tablet PO (10:38)
--- NOTE | 2019-02-10 11:34 | ECHOCS_ITS ---
Reason For Study: CAD/ASHD Procedure This was a 2D Doppler, Color Flow transthoracic echocardiogram. The study was technically difficult. Contrast injection was performed. Exam performed portable in ICU/CCU. Left Ventricle Normal LV size. Mild concentric left ventricular hypertrophy. Left ventricular systolic function is normal. The estimated ejection fraction is 60 %. No regional wall motion abnormalities noted. Right Ventricle Normal RV size. Normal systolic function. Atria Normal left atrium. Normal right atrium. Mitral Valve Mitral valve not well visualized. Mild (1+) eccentric mitral valve insufficiency. Tricuspid Valve The tricuspid valve is not well visualized. Mild (1+) tricuspid valve insufficiency. Pulmonary artery systolic pressure is 32 mmHg. Aortic Valve The aortic valve is not well visualized. Mild (1+) eccentric aortic valve insufficiency. Pulmonic Valve The pulmonic valve is not well visualized. Great Vessels Normal aortic root. The pulmonary artery is normal size. Normal inferior vena cava. Pericardium/Pleural No pericardial effusion. Medication Diluted definity 2ml given slow IV push to enhance endocardial definition. MMode/2D Measurements & Calculations LVIDd: 4.6 cm IVSd: 1.2 cm Ao root diam: 2.8 cm LVIDs: 3.0 cm LVPWd: 1.2 cm RVDd: 2.8 cm FS: 33.6 % LAV(MOD-bp): 45.3 ml LVAd ap4: 23.9 cm2 SV(MOD-sp4): 41.6 ml LAV(MOD-bp) Indexed: 23.2 ml/m2 EDV(MOD-sp4): 71.3 ml LAV(MOD-sp2): 51.8 ml EDV(sp4-el): 74.1 ml LAV(MOD-sp4): 39.5 ml LVAs ap4: 14.1 cm2 ESV(MOD-sp4): 29.8 ml ESV(sp4-el): 30.1 ml EF(MOD-sp4): 58.3 % EF(sp4-el): 59.4 % SV(sp4-el): 44.0 ml LA A4 area: 16.0 cm2 LA dimension(2D): 3.6 cm RA A4 area: 11.7 cm2 Doppler Measurements & Calculations MV E max gerson: 99.3 cm/sec Lat Peak E' Gerson: 6.7 cm/sec Med Peak E' Gerson: 4.6 cm/sec MV A max gerson: 114.4 cm/sec E/E' lat: 14.8 E/E' med: 21.7 MV E/A: 0.87 Ao V2 max: 163.9 cm/sec AI max gerson: 406.2 cm/sec LV V1 max: 103.8 cm/sec Ao max P.7 mmHg AI max P.1 mmHg LV V1 max P.3 mmHg Ao V2 mean: 114.5 cm/sec Ao mean P.7 mmHg AI dec slope: 300.5 cm/sec2 Ao V2 VTI: 38.6 cm AI P1/2t: 395.9 msec PA V2 max: 70.5 cm/sec TR max gerson: 266.5 cm/sec TR max P.4 mmHg Interpretation Summary Normal LV size. Mild concentric left ventricular hypertrophy. Left ventricular systolic function is normal. The estimated ejection fraction is 60 %. Contrast injection was performed. Ordering Physician: Seun Blair Referring Physician: Dawn Rivera Performed By: Karla Sevilla RDCS, RVT
--- NOTE | 2019-02-10 11:54 | PCM.PN.HOSP ---
Reason for Visit: Chest pain Subjective: Seen and examined post cath. Resting in bed upright NAD. Eating breakfast with no issues. No chest pain, heaviness, tightness, pressure. No SOB. No nausea. Tolerating PO. No pain, numbness, tingling at cath site. Vitals/I&O's: Vital Signs Temp Pulse Resp BP Pulse Ox 97.7 F L 70 16 139/75 H 93 02/10/19 09:45 02/10/19 11:30 02/10/19 11:30 02/10/19 11:30 02/10/19 11:30 Oxygen Flow Rate (L/min) 2 Oxygen Delivery Method Room Air Weight: 223 lb 12.307 oz Body Mass Index (BMI) 43.7 Intake and Output for Last 24 Hours 02/08/19 02/09/19 02/10/19 23:59 23:59 23:59 Intake Total 868.75 / 868.75 3517.50 / 3517.50 752.5 / 752.5 Balance 868.75 / 868.75 3517.50 / 3517.50 752.5 / 752.5 General: Alert, Oriented x3, Cooperative HEENT: Atraumatic, PERRLA, EOMI, Normocephalic Neck: Supple, No JVD, Negative Carotid Bruits Lungs: Clear to auscultation, Normal air movement Cardiovascular: Regular rate, No murmurs Abdomen: Bowel Sounds Present, Soft, Non Tender Extremities: No edema, Capillary Refill Less than 3 Seconds Skin: No rashes, No breakdown Musculoskeletal: No Tenderness to Palpation of Joints or Extremities Neurological: Cranial nerves II-XII grossly intact Psych/Mental Status: Normal Affect, Appropriate, Alert and oriented to time, place, person, mood and affect Current Medications Acetaminophen (Tylenol) 650 mg PO Q6H PRN PRN PRN Reason: Pain Score 1-3/Temp > 100.7 F Last Admin: 02/09/19 18:04 Dose: 650 mg Documented by: Albuterol Sulfate (Ventolin Aerosols) 2.5 mg INHALATION Q4H PRN PRN PRN Reason: SOB/Wheezing [facility]) [facility] Last Admin: 02/10/19 05:41 Dose: 81 mg Documented by: Atorvastatin Calcium (Lipitor) 20 mg PO QHS [facility] Last Admin: 02/09/19 20:55 Dose: 20 mg Documented by: Atropine Sulfate () 0.5 mg IV UD PRN PRN Reason: HR <50 bpm Citalopram Hydrobromide (Celexa) 20 mg PO QHS [facility] Last Admin: 02/09/19 20:54 Dose: 20 mg Documented by: Clopidogrel Bisulfate (Plavix) 75 mg PO DAILY [facility] Last Admin: 02/10/19 05:42 Dose: 75 mg Documented by: Cyclobenzaprine HCl (Flexeril) 10 mg PO QHS [facility] Last Admin: 02/09/19 20:54 Dose: 10 mg Documented by: Enoxaparin Sodium (Lovenox) 40 mg SC DAILY [facility] Last Admin: 02/09/19 19:26 Dose: Not Given Documented by: Gabapentin (Neurontin) 600 mg PO QHS [facility] Last Admin: 02/09/19 21:02 Dose: 600 mg Documented by: Heparin Sodium (Beef Lung) (Heparin 500 Unit/5 Ml (100/Ml)) 500 unit IV UD PRN PRN Reason: HEPARIN FLUSH Sodium Chloride () 1,000 mls @ 15 mls/hr IV .Q48H [facility] Last Admin: 02/09/19 08:54 Dose: Not Given Documented by: Sodium Chloride () 1,000 mls @ 75 mls/hr IV .[id number] [facility] Last Admin: 02/10/19 09:57 Dose: 75 mls/hr Documented by: Labetalol HCl (Trandate) 5 mg IV X1 PRN PRN Reason: SBP > 160 when pulling sheath Stop: 02/12/19 09:27 Levothyroxine Sodium (Synthroid) 100 mcg PO DAILY@0600 [facility] Last Admin: 02/10/19 05:42 Dose: 100 mcg Documented by: Metoprolol Tartrate (Lopressor (Beta Allan)) 50 mg PO BID [facility] Last Admin: 02/10/19 05:41 Dose: 50 mg Documented by: Morphine Sulfate () 1 - 2 mg IV Q4H PRN PRN PRN Reason: Pain Score 6-10/10 Nitroglycerin (Nitrostat) 0.4 mg SUBLINGUAL Q5M PRN PRN Reason: CARDIAC/CHEST PAIN Last Admin: 02/08/19 20:46 Dose: 1 tab Documented by: Nitroglycerin (Nitrobid) 0.5 inch TRANSDERM. Q6 [facility] Last Admin: 02/10/19 05:41 Dose: 0.5 inch Documented by: Ondansetron HCl (Zofran) 4 mg IV Q8H PRN PRN PRN Reason: NAUSEA/VOMITING Pantoprazole Sodium (Protonix) 20 mg PO DAILY [facility] Last Admin: 02/10/19 10:38 Dose: 20 mg Documented by: Sodium Chloride () 10 - 40 ml IV UD PRN PRN Reason: SALINE FLUSH Last Admin: 02/08/19 18:48 Dose: 10 ml Documented by: Sodium Chloride () 500 ml IV BOLUS PRN PRN Reason: VASO-VAGAL PROTOCOL STROKE Vital Signs/Narrative: Vital Signs Temp Pulse Resp BP Pulse Ox 02/10/19 11:30 70 16 139/75 H 93 02/10/19 11:00 70 17 124/54 H 93 02/10/19 10:30 67 16 141/86 H 92 02/10/19 10:15 69 16 142/74 H 93 02/10/19 10:00 65 16 147/75 H 96 02/10/19 09:45 97.7 F L 70 17 143/82 H 96 Medical Necessity - Tobacco Use Smoking Status: Former smoker Assessment/Plan 1. Chest pain, abnormal troponins- cath today, 1 stent placed distal circ. Continue aspirin, statin, plavix, metoprolol. 2. History of CAD with prior stent- care as above. 3. History of chronic diastolic congestive heart failure-no evidence of acute exacerbation 4. History of COPD - no SOB/wheezing - prn albuterol 5. Hypertension - stable 6. Hyperlipidemia - on statin 7. Morbid obesity - dietary eval 8. Depression - Celexa 9. Chronic back pain-continue gabapentin 10. Hypothyroidism-continue Synthroid DVT ppx: lovenox DC Planning: home in AM if no issues. This patient was seen by Albino Hurtado PA-C under the supervision of Doctor Miller
--- NOTE | 2019-02-10 13:51 | CRPHASE1 ---
Patient Communication PHII Cardiac Rehab Discussed with Patient:: No Guide to Cardiac Rehab Given to Patient:: Yes - Pt asleep. Cardiac Rehab Facility Choice List Given to Patient:: Yes - Placed at bedside and told her nurse to have her call CR if questions Choice Program [facility] CR PHII:: Communication Given to CR, Refer to [facility] - Pt lives in [place]. Pt asleep, so info left at bedside. Automotive Design Drafter:: Perfecto Leiva Phase II Cardiac Rehab:: Yes Sessions:: 36 sessions - 3 days/wk, 12 weeks Phase I Charge:: Level I - Education Risk Factors/Lifestyle Smoking Status: Former smoker Hx Hypertension: Yes - pulmonary and essential Hx Dyslipidemia: Yes Hx Obesity: Yes Height: 5 ft Weight:: 224 lb BMI: 43.7 Stress: Work-related Family History: Heart Disease Past Cardiac Illness: Coronary Artery Disease, Previous PCI w/Stent - 2013 Phase I Education Given On:: [place], Nutrition, Antiplatelet medication, CHF Issues Affecting Care:: None Knowledge of Condition:: Yes Learning Preferences: Verbal, Written, Audio/Visual, Demonstration Medical/Surgical History CAD:: Yes MR:: Yes Hypertension:: Yes - pulmonary and essential Dyslipidemia:: Yes PVD:: Yes GERD:: Yes Thyroid:: Yes - hypo Depression:: Yes PTCA:: Yes - 2013 Cardiac Rehabilitation Info Cardiac Rehabilitation Program Information: Cardiac Rehabilitation is important for patients like you who are recovering from a heart problem. Cardiac rehabilitation programs are recognized as integral to the continued care of the patient with coronary heart disease. The cardiac rehabilitation program is designed to optimize a patient's physical, psychological, and social functioning. Health healthcare network pricing consultant work in cardiac rehabilitation programs and assist you with getting the treatments you need to get stronger and healthier - like exercise, healthy eating habits, and medications. Cardiac rehabilitation has been show to help people with heart problems live longer and have better life enjoyment than people who do not go to cardiac rehabilitation. Please contact the Cardiac Rehabilitation Program at [facility] at in two weeks if you have not heard from them.
--- NOTE | 2019-02-10 14:02 | CRPH1.INSTRU ---
General Education CAD and cardiac anatomy and function:: Not instructed - Pt lives in [place]. Pt asleep, so info left at bedside. Informed nurse to have pt/family contact CR if questions. Smoking Patient Nicotine/Smoking Risk Factors Are:: Non-smoker Nicotine/Smoking Response Code:: Not instructed Dyslipidemia Patient Dyslipidemia Risk Factors Are:: Total Cholesterol, Triglycerides, HDL, LDL Recommendations Include:: Lipid profile provided Dyslipidemia Response Code:: Not instructed Overweight/Obesity Patient Overweight/Obesity Risk Factors Are:: Obesity - > or = 30 Overweight/Obesity:: Not instructed Hypertension Hypertension:: Not instructed Heart Disease Patient Heart Disease Risk Factors Are:: Previous cardiac event Heart Disease Response Code:: Not instructed Diabetes Patient Diabetes Risk Factors Are:: No documented hx of diabetes Metabolic Syndrome Metabolic Syndrome Response Code:: Not instructed Sedentary Sedentary Response Code:: Not instructed Stress Stress Response Code:: Not instructed - Pt lives in [place]. Pt asleep, so info left at bedside. Informed nurse to have pt/family contact CR if questions.
--- NOTE | 2019-02-10 14:04 | CASEMGMT ---
Intro role of CM to patient and [facility] form explained re: Observation status for treatment of chest pain. Explained hospitalization will be paid per? insurance policy for Outpatient billing?and condition will continue to be evaluated for Inpt necessity. Also let pt know that [facility] sends paper in the billing packet with their phone number if questions arise. Discussed Pharmacy section of [facility] form and self administered medication guideline.? Pt verbalizes understanding and does not have further questions. Form signed and placed in chart, copy to pt. BILL GRIGGS BSN CM
[2019-02-10 14:24] LABS: Magnesium 2.1 mg/dL (1.6-2.6)
[2019-02-10] MEDS: Gabapentin 600 MG Tablet PO (21:30)
[2019-02-10] MEDS: Citalopram 20 MG Tablet PO (21:31)
[2019-02-10] MEDS: cycloBENZAPRine HCl 10 MG Tablet PO (21:31)
[2019-02-10] MEDS: Atorvastatin Calcium 20 MG Tablet PO (21:31)
[2019-02-10] MEDS: Acetaminophen 325 MG Tablet 650 MG PO (21:42)
[2019-02-11] VITALS (14 sets, daily range): BP systolic 99–138; BP diastolic 48–79; PULSE 65–79; RESP 12–17; TEMP 36.6; O2SAT 91–94
[2019-02-11 04:23] LABS: Hematocrit 36.4 % (37-47); Mean Corpuscular Hgb 31.1 pg (27.0-32.0); Mean Corpuscular Volume 94.3 fL (81-99); Mean Platelet Vol. 9.9 fl (6.2-12.0); Platelet Count 222 K/mm3 (150-450); RBC Distribution Width CV 12.9 % (11.6-14.6); RBC Distribution Width SD 43.9 fl (35.1-43.9); Red Blood Count 3.86 M/mm3 (4.2-5.4); White Blood Count 6.3 K/mm3 (4.4-11.0)
[2019-02-11 04:40] LABS: ALB/GLOB Ratio 0.8 RATIO (0.9-2.4); AST(SGOT) 64 U/L (15-37); Alanine Aminotransfer ALT/SGPT 50 U/L (13-56); Albumin, Serum 2.9 g/dL (3.2-5.0); Alkaline Phosphatase 109 U/L (45-117); Anion Gap 6 (5-15); BUN 9 mg/dL (7-18); BUN/Creat Ratio 12.9 RATIO (10-20); Calcium,Total 8.4 mg/dL (8.5-10.1); Chloride 107 mmol/L (98-107); EST Glomerular Filtration Rate 91 mL/min (>60); Est Glom Filt Rate - Afr Amer 110 mL/min (>60); Estimated Creatinine Clearance 61.39 ml/min; Globulin 3.5 g/dL (2.2-4.2); Glucose 120 mg/dL (74-106); Potassium 3.8 mmol/L (3.5-5.1); Protein, Total 6.4 g/dL (6.4-8.2); Sodium Level 141 mmol/L (136-145)
[2019-02-11] MEDS: Nitroglycerin Oint 1 INCH PACKET 0.5 INCH TRANSDERM. (05:04)
[2019-02-11] MEDS: 0.9% Saline Lock 10 ML Syringe IV (05:05)
[2019-02-11] MEDS: Levothyroxine 100 MCG Tablet PO (05:32)
--- NOTE | 2019-02-11 07:28 | PN.CARD_ITS ---
Subjectve: Patient seen and evaluated. Appears to be doing well. Uneventful night. Objective: Vital Signs Temp Pulse Resp BP Pulse Ox 97.9 F 65 14 110/64 91 02/11/19 04:00 02/11/19 06:44 02/11/19 06:00 02/11/19 06:00 02/11/19 06:00 Oxygen Flow Rate (L/min) 2 Oxygen Delivery Method Room Air Weight: 228 lb 9.91 oz Body Mass Index (BMI) 43.7 Intake and Output for Last 24 Hours 02/09/19 02/10/19 02/11/19 23:59 23:59 23:59 Intake Total 3517.50 / 3517.50 1977.75 / 2618.75 890 / 890 Balance 3517.50 / 3517.50 1977.75 / 261.75 890 / 890 General: Awake, Alert, Oriented x 3 HEENT: PERRL, EOMI, Sclera Non Icteric Neck: Supple, Good ROM, No Lymph Node Enlargement Lungs: Clear to auscultation Cardiovascular: Regular Rhythm, Normal S1, Normal S2, No Murmurs, No Rubs, No Gallops Vascular: No Carotid Bruits, Normal Femoral Pulses, Normal Radial Pulses, Normal Dorsalis Pedal Pulse, Normal Posterior Tibial Pulses Abdomen: Bowel Sounds Present, Soft, Non Tender, No HSM, No Organomegaly Extremities: No Cyanosis, No Clubbing, No edema Musculoskeletal: No Erythema Skin: No Rashes Lymphatic: No Lymph Node Enlargement Neurological: No Focal Motor or Sensory Deficit Psych/Mental Status: Appropriate 02/10/19 07:42: Magnesium 2.1 02/11/19 04:10: WBC 6.3, RBC 3.86 L, Hgb 12.0, Hct 36.4 L, MCV 94.3, MCH 31.1, MCHC 33.0, Plt Count 222, MPV 9.9 02/11/19 04:10: Sodium 141, Potassium 3.8, Chloride 107, Carbon Dioxide 28.0, Anion Gap 6, BUN 9, Creatinine 0.70, Est GFR (MDRD) Af Amer 110, Est GFR (MDRD) Non-Af 91, BUN/Creatinine Ratio 12.9, Glucose 120 H, Calcium 8.4 L, Total Bilir ubin 0.20 Rhythm: EKG: ECHO: Stress Test: Cardiac Cath: PCI: CT Surgery: Holter monitor: EPS: PPM: CXR: Chest CT Scan: Medical Necessity - Tobacco Use Smoking Status: Former smoker Assessment/Plan 1. Chest pain * Patient presents with chest pain with some atypical features at this particular time. She does have coronary disease substrate. * * Cardiac catheterization demonstrated the following: Normal left main coronary artery. Left anterior descending artery with no significant stenosis. Left circumflex artery with the previously placed stent which is patent and immediately post stent with a 95% stenotic lesion. Codominant right coronary artery with no high-grade stenosis. Based on the above angiographic findings the patient underwent angioplasty and stenting of the [place] circumflex artery. Patient can be discharged on aspirin, clopidogrel, metoprolol, and atorvastatin. 2. Hypertension * Good control continue current medical therapy * Estimated ejection fraction by echocardiogram is noted to be approximately 60%. 3. Hyper lipidemia * Continue with aggressive risk factor modification. * * * Patient can be discharged for outpatient follow-up. See me in the office in 2 to 4 weeks. Cardiac rehabilitation. * Thank you for allowing me to participate in the care of your patient. Please don't hesitate to call if any issues arise
--- NOTE | 2019-02-11 07:47 | PCM.DC ---
- Discharge Diagnoses Current Active Problems: (1) Chest Pain with indeterminate cardiac enzymes, ACS w/ CAD w/ successful PTCA/KP to the distal LCx (2) Chronic COPD (3) Morbid Obesity (4) Hypertension (5) Hyperlipidemia (6) Hypothyroidism (7) GERD (8) Chronic Back Pain (9) Diastolic CHF You will use the following diet at home:: Cardiac Your food should be the consistency of: Regular Your liquids should be the consistency of: Regular/Thin Discharge Activity: - - See additional instructions. May resume sexual activity in: - - See additional instructions. Weight Bearing Status: Weight bearing as tolerated Call your doctor if your incision/area has: Continuous Slow Oozing, Sudden Increased Bleeding, Increased Pain/ Swelling, Increased Redness, Foul Smelling Discharge, Swelling at the incision site Call your doctor if you observe: Fever of 101 or Higher, Inability to urinate, Inability to have a bowel movement, Shortness of breath, Dizziness, Fainting spells, Chest pain, Uncontrolled pain Cleanse incision/area with: Keep Dressing Clean & Dry Instructions: Understanding Coronary Artery Disease (CAD), Taking Blood Thinners After Percutaneous Coronary Intervention (PCI), Follow-up Appointment After Percutaneous Coronary Intervention (PCI), Lifestyle Management After Percutaneous Coronary Intervention (PCI), Exercising Safely After Percutaneous Coronary Intervention (PCI) Additional Instructions: CARDIOLOGY PCI CATH INSTRUCTIONS. Lifting: Must be less than 5 lbs for 5 days, No restrictions after 14 days. Shower: Yes. Climb stairs: Yes. Bathing in tub or submerged water: No, until cleared per Cardiology at follow-up (call office if any concerns [phone] and may leave voicemail if after hours). Walkin minutes 3 times daily, increase as tolerated. Driving: Resume in 7 days. Sexual activity: Resume in 14 days. Regular activity: Resume 14 days. ADDITIONAL: Encourage you to discuss pulmonary function assessment for underlying COPD with your primary care physician. Also recommend evaluation outpatient for sleep apnea. Allergies/Adverse Reactions: Allergies No Known Allergies Allergy (Verified 02/08/19 14:39) Medications to take at Discharge Levothyroxine [Synthroid] 100 mcg PO DAILY 04/17/14 Metoprolol Tartrate [Lopressor (beta mayo)] 50 mg PO BID 04/17/14 Gabapentin [Gralise] 600 mg PO QHS 04/29/15 Citalopram [Celexa] 20 mg PO QHS 07/11/16 Aspirin [Adult Aspirin Regimen] 81 mg PO DAILY 06/11/17 Omeprazole 20 mg PO DAILY 06/11/17 clopidogrel 75 mg tablet 75 mg PO DAILY #90 tab 08/14/18 Cyclobenzaprine HCl 10 mg PO QHS 02/08/19 Ferrous Sulfate 325 mg PO DAILY 02/08/19 Atorvastatin Calcium [Lipitor] 20 mg PO QHS #30 tab 02/11/19 The following prescriptions were given: Atorvastatin Calcium [Lipitor] 20 mg PO QHS #30 tab Transmission Status: Pending to [facility]/pharmacy #[id number] Primary Care Physician: Dawn Rivera MD [Primary Care Provider] - Please follow up with your Primary Care Physician in: Follow-up within 3-5 days to review admission. Test Results: Test results from this visit will be discussed in further detail at your follow-up appointment, if applicable. Please Follow Up With: Seun Blair MD When: Follow-up in office in 2-4 weeks, call if any concerns for earlier eval Proposed Discharge Date: 02/11/19
--- NOTE | 2019-02-11 07:52 | DS.PCM_ITS ---
Discharge Date and Diagnosis Date of Admission: 02/08/19 Date of Discharge: 02/11/19 - Primary Discharge Diagnosis (1) Chest Pain with indeterminate cardiac enzymes, ACS w/ CAD w/ successful PTCA/KP to the distal LCx (2) Chronic COPD (3) Morbid Obesity (4) Hypertension (5) Hyperlipidemia (6) Hypothyroidism (7) GERD (8) Chronic Back Pain (9) Diastolic CHF - Secondary Discharge Diagnosis Chronic Problems (Last Updated 02/08/19 @ 16:41 by Salena Yo MD) Chronic diastolic heart failure (Chronic) History of coronary artery stent placement (Chronic 11/25/13) LCL-BZF-Yul-Distal Lcx w/ 2.0 x 20 mm Promus Premier Stent 11/25/13 Essential (primary) hypertension (Chronic) Nicotine dependence in remission (Chronic) Atherosclerosis of coronary artery of [place] heart without angina pectoris (Chronic) PHG-RHT-Qrl-Distal Lcx w/ 2.0 x 20 mm Promus Premier Stent 11/25/13 Pulmonary hypertension (Chronic) RVSP 31 mmHg Stage 2 moderate COPD by GOLD classification (Chronic) FEV1 65% Hyperlipidemia (Chronic) Other peripheral vascular disease (Chronic) Non-ST elevated myocardial infarction (non-STEMI) (Chronic) Supraventricular tachycardia (Chronic) Hospital Course and Treatment Dr. Blair Cardiology Operations: None Procedures: 2-D Echocardiogram, Cardiac catheterization - PTCA/KP to the distal LCx Summary of Care Provided: The patient is a 58 y/o F w/ PMHx: Morbid Obesity, Chronic COPD, HTN, HLD, Anxiety and Depression, Chronic back pain, Hypothyroidism, CAD s/p PCI, Chronic Diastolic CHF who presented to the [facility] ED on 02/08/19 w/ history of onset retrosternal sharp chest discomfort with radiation to the left upper extremity as well as her back with associated dyspnea, nausea prompting ED presentation. EKG in ED with no acute evidence of ischemia, CXR w/ no acute cardiopulmonary findings, initial trop 0.072 with repeat 0.486 and most recently 0.493. Initially admitted to the PCU, transitioned to the ICU following cardiac cathete rization, 02/10/19 cardiac catheterization w/ successful PTCA/KP to the distal LCx, continued on a monitored bed, ECHO obtained w/ normal LV size, mild concentric LVH, LV systolic function normal, EF 60%, maintained on aspirin, plavix, statin, toprol. Patient reassessment on 02/11/2019 for cardiology with no further chest pains, appropriate blood pressure with plan discharged home with follow-up with primary care physician as well as cardiology within 2 to 4 weeks. Upon discharge also encourage patient to discuss COPD further evaluation with pulmonary function testing as well as reassessment of her sleep apnea CPAP settings with her PCP. DAY OF DISCHARGE PROGRESS NOTE: Subjective: Patient without acute event overnight per self and nursing report. Patient had no further chest discomfort. Patient denies fever, chills, nausea, emesis, abdominal pain, or worsened chest pain or dyspnea. Patient agreeable to discharge to home. Patient will be discharged with follow-up with primary care physician within 3-5 days in addition to cardiology in 2 to 4 weeks with recommendation to call if any earlier concerns. Objective: 97.9, heart rate 67, BP 132/63, respiratory rate 15, 93% room air. Physical Examination: General: awake, alert, oriented x 3 and cooperative, seated upright in the ICU bedside chair, no acute distress. Skin: normal color, turgor, no icterus, cyanosis, right wrist with dressing in place with no bleeding/C is present. HEENT: AT/NC, EOMI, PERRLA, MMM. Lungs: CTA bilaterally, moderate effort, mild decrease BL bases, no rales, ronchi or wheezing; Heart: Regular rate and rhythm; no gallop, rub audible. Abdomen: soft, orbitally obese, NTTP, ND, normal BS. Extremities: no cyanosis, clubbing, or edema. Neurological: patient awake, alert, oriented x 3; cognitive function appears intact upon questioning,; pupils equally reactive to light and accomodation; cranial nerves II-XII grossly normal, moving all 4 extremities, strength improved, mildly global decrease. Psychiatric: affect appears normal, eager for discharge, no acute evidence of depressive or anxiety feelings. Assessment and Plan: Please see hospital summary above. - Physical Exam Vitals/I&O's: Vital Signs Temp Pulse Resp BP Pulse Ox 97.9 F 67 15 132/63 H 93 02/11/19 04:00 02/11/19 07:00 02/11/19 07:00 02/11/19 07:00 02/11/19 07:00 Oxygen Flow Rate (L/min) 2 Oxygen Delivery Method Room Air Weight: 228 lb 9.91 oz Body Mass Index (BMI) 43.7 Intake and Output for Last 24 Hours 02/09/19 02/10/19 02/11/19 23:59 23:59 23:59 Intake Total 3517.50 / 3517.50 1977.75 / 2617.75 890 / 890 Balance 3517.50 / 3517.50 1977.75 / 2617.75 890 / 890 Laboratory Results 02/10/19 07:42: Magnesium 2.1 02/11/19 04:10: WBC 6.3, RBC 3.86 L, Hgb 12.0, Hct 36.4 L, MCV 94.3, MCH 31.1, MCHC 33.0, RDW Std Deviation 43.9, RDW Coeff of Shaylee 12.9, Plt Count 222, MPV 9.9 02/11/19 04:10: Sodium 141, Potassium 3.8, Chloride 107, Carbon Dioxide 28.0, Anion Gap 6, BUN 9, Creatinine 0.70, Estim Creat Clear Calc 61.39, Est GFR (MDRD) Af Amer 110, Est GFR (MDRD) Non-Af 91, BUN/Creatinine Ratio 12.9, Glucose 120 H, Calcium 8.4 L, Total Bilirubin 0.20, AST 64 H, ALT 50, Alkaline Phosphatase 109, Total Protein 6.4, Albumin 2.9 L, Globulin 3.5, Albumin/Globulin Ratio 0.8 L Current Medications Acetaminophen (Tylenol) 650 mg PO Q6H PRN PRN PRN Reason: Pain Score 1-3/Temp > 100.7 F Last Admin: 02/10/19 21:42 Dose: 650 mg Documented by: Albuterol Sulfate (Ventolin Aerosols) 2.5 mg INHALATION Q4H PRN PRN PRN Reason: SOB/Wheezing [facility] Last Admin: 02/10/19 05:41 Dose: 81 mg Documented by: Atorvastatin Calcium (Lipitor) 20 mg PO QHS [facility] Last Admin: 02/10/19 21:31 Dose: 20 mg Documented by: Atropine Sulfate () 0.5 mg IV UD PRN PRN Reason: HR <50 bpm Citalopram Hydrobromide (Celexa) 20 mg PO QHS [facility] Last Admin: 02/10/19 21:31 Dose: 20 mg Documented by: Clopidogrel Bisulfate (Plavix) 75 mg PO DAILY [facility] Last Admin: 02/10/19 05:42 Dose: 75 mg Documented by: Cyclobenzaprine HCl (Flexeril) 10 mg PO QHS [facility] Last Admin: 02/10/19 21:31 Dose: 10 mg Documented by: Enoxaparin Sodium (Lovenox) 40 mg SC DAILY [facility] Last Admin: 02/09/19 19:26 Dose: Not Given Documented by: Gabapentin (Neurontin) 600 mg PO QHS [facility] Last Admin: 02/10/19 21:30 Dose: 600 mg Documented by: Heparin Sodium (Beef Lung) (Heparin 500 Unit/5 Ml (100/Ml)) 500 unit IV UD PRN PRN Reason: HEPARIN FLUSH Hydralazine HCl (Apresoline Iv) 20 mg IV Q6H PRN PRN PRN Reason: BP >160/100 Sodium Chloride () 1,000 mls @ 15 mls/hr IV .Q48H [facility] Last Admin: 02/09/19 08:54 Dose: Not Given Documented by: Labetalol HCl (Trandate) 5 mg IV X1 PRN PRN Reason: SBP > 160 when pulling sheath Stop: 02/12/19 09:27 Levothyroxine Sodium (Synthroid) 100 mcg PO DAILY@0600 [facility] Last Admin: 02/11/19 05:32 Dose: 100 mcg Documented by: Metoprolol Tartrate (Lopressor (Beta Allan)) 50 mg PO BID [facility] Last Admin: 02/10/19 21:30 Dose: 50 mg Documented by: Morphine Sulfate () 1 - 2 mg IV Q4H PRN PRN PRN Reason: Pain Score 6-10/10 Nitroglycerin (Nitrostat) 0.4 mg SUBLINGUAL Q5M PRN PRN Reason: CARDIAC/CHEST PAIN Last Admin: 02/08/19 20:46 Dose: 1 tab Documented by: Ondansetron HCl (Zofran) 4 mg IV Q8H PRN PRN PRN Reason: NAUSEA/VOMITING Pantoprazole Sodium (Protonix) 20 mg PO DAILY [facility] Last Admin: 02/10/19 10:38 Dose: 20 mg Documented by: Sodium Chloride () 10 - 40 ml IV UD PRN PRN Reason: SALINE FLUSH Last Admin: 02/11/19 05:05 Dose: 10 ml Documented by: Sodium Chloride () 500 ml IV BOLUS PRN PRN Reason: VASO-VAGAL PROTOCOL Discharge Activity: - - See additional instructions. May resume sexual activity in: - - See additional instructions. Weight Bearing Status: Weight bearing as tolerated Call your doctor if your incision/area has: Continuous Slow Oozing, Sudden Increased Bleeding, Increased Pain/ Swelling, Increased Redness, Foul Smelling Discharge, Swelling at the incision site Call your doctor if you observe: Fever of 101 or Higher, Inability to urinate, Inability to have a bowel movement, Shortness of breath, Dizziness, Fainting spells, Chest pain, Uncontrolled pain Cleanse incision/area with: Keep Dressing Clean & Dry Home Medications: Medications to take at Discharge Levothyroxine [Synthroid] 100 mcg PO DAILY 04/17/14 Metoprolol Tartrate [Lopressor (beta allan)] 50 mg PO BID 04/17/14 Gabapentin [Gralise] 600 mg PO QHS 04/29/15 Citalopram [Celexa] 20 mg PO QHS 07/11/16 Aspirin [Adult Aspirin Regimen] 81 mg PO DAILY 06/11/17 Omeprazole 20 mg PO DAILY 06/11/17 clopidogrel 75 mg tablet 75 mg PO DAILY #90 tab 08/14/18 Cyclobenzaprine HCl 10 mg PO QHS 02/08/19 Ferrous Sulfate 325 mg PO DAILY 02/08/19 Atorvastatin Calcium [Lipitor] 20 mg PO QHS #30 tab 02/11/19 Following Prescrptions Were Given to Patient: Atorvastatin Calcium [Lipitor] 20 mg PO QHS #30 tab Transmission Status: Received by [facility]/pharmacy #[id number] Primary Care Physician: Dawn Rivera MD [Primary Care Provider] - Please follow up with your Primary Care Physician in: Follow-up within 3-5 days to review admission. Please Follow Up With: Seun Blair MD When: Follow-up in office in 2-4 weeks, call if any concerns for earlier eval Patient Instructions: Understanding Coronary Artery Disease (CAD), Taking Blood Thinners After Percutaneous Coronary Intervention (PCI), Follow-up Appointment After Percutaneous Coronary Intervention (PCI), Lifestyle Management After Percutaneous Coronary Intervention (PCI), Exercising Safely After Percutaneous Coronary Intervention (PCI) Disposition: Home Minutes spent on discharge:: 35 Patient Condition:: Fair Medical Necessity - Tobacco Use Smoking Status: Former smoker Meaningful Use Info Meaningful Use Diagnoses (Choose all that apply): None applicable Code Visit Inpatient E&M: 44264 Disch Hosp
[2019-02-11] MEDS: Metoprolol Tartrate 50 MG Tablet PO (08:20)
[2019-02-11] MEDS: Aspirin E.C. 81 MG Tablet PO (08:21)
[2019-02-11] MEDS: Clopidogrel Bisulfate 75 MG Tablet PO (08:21)
[2019-02-11] MEDS: Pantoprazole Sodium 20 MG Tablet PO (08:21)
--- NOTE | 2019-02-11 10:00 | EKG12_ITS ---
Test Reason : AM Blood Pressure : / mmHG Vent. Rate : 066 BPM Atrial Rate : 066 BPM P-R Int : 134 ms QRS Dur : 072 ms QT Int : 464 ms P-R-T Axes : 061 023 -85 degrees QTc Int : 486 ms Normal sinus rhythm Low voltage QRS T wave abnormality, consider inferolateral ischemia Prolonged QT Abnormal ECG When compared with ECG of 10-FEB-2019 09:43, MANUAL COMPARISON REQUIRED, DATA IS UNCONFIRMED Confirmed by CHAYITO BORGES, DOLORES ([id number]), supervising editor news reel HERLINDA LEON ([id number]) on 02/16/2019 12:12:14 PM Referred By: PORFIRIO Confirmed By:HUBER STRATTON MD
== END 2019-02-11 09:52 | disposition home or self-care (01) ==
LOC: ED 15:37 → PCU 16:50 → ICU 02-10 09:31
PROVIDERS: Specialist; Student in an Organized Health Care Education/Training Program; Admitting Provider Hospitalist; Emergency Provider Emergency Medicine; Family Provider Family Medicine; PCP Family Medicine; Visit Provider Family Medicine
DX: I25.110 Atherosclerotic heart disease of native coronary artery with unstable angina pectoris (principal); E78.5 Hyperlipidemia, unspecified; I73.9 Peripheral vascular disease, unspecified; J44.9 Chronic obstructive pulmonary disease, unspecified; R06.02 Shortness of breath; I27.20 Pulmonary hypertension, unspecified; I25.2 Old myocardial infarction; I11.0 Hypertensive heart disease with heart failure; I50.32 Chronic diastolic (congestive) heart failure; K21.9 Gastro-esophageal reflux disease without esophagitis; G47.33 Obstructive sleep apnea (adult) (pediatric); M19.90 Unspecified osteoarthritis, unspecified site; E03.9 Hypothyroidism, unspecified; E66.01 Morbid (severe) obesity due to excess calories; Z71.3 Dietary counseling and surveillance; F32.9 Major depressive disorder, single episode, unspecified; Z79.899 Other long term (current) drug therapy; Z79.02 Long term (current) use of antithrombotics/antiplatelets; Z79.82 Long term (current) use of aspirin; Z87.891 Personal history of nicotine dependence; Z68.42 Body mass index [BMI] 45.0-49.9, adult; G89.29 Other chronic pain; M54.9 Dorsalgia, unspecified
CPT/HCPCS: 36415; 71046; 76937; 80048; 80053; 83735; 84484; 85025; 85027; 92928; 93005; 93306; 93454; 96360; 96361; 96372; 97802; 99152; 99153; 99218; 99285; J7030; Q9957; A4216; C1725; C1769; C1874; C1887; C1894; C8929; C9600; G0378; Q9967

== ENCOUNTER → 2019-02-13 14:31 | Outpatient (CLI) | payer MEDICARE, SELFPAY ==
[2019-02-11 09:49] VITALS: BMI 46.5
[2019-02-13 16:11] LABS: Thyroid Stim Hormone (TSH) 4.45 uIU/mL (0.358-3.74)
== END ==
PROVIDERS: Family Provider Family Medicine; PCP Family Medicine; Visit Provider Family Medicine
DX: E03.9 Hypothyroidism, unspecified (principal)
CPT/HCPCS: 36415; 84443

== ENCOUNTER → 2019-04-03 09:40 | Outpatient (CLI) | payer MEDICARE, SELFPAY ==
[2019-03-04 08:39] VITALS: BMI 43.7
--- NOTE | 2019-04-03 10:39 | PCM.CR.HP2 ---
CR - History & Physical - General Arrival date:: 04/03/19 Arrival time:: 09:45 Date of Referral:: 02/10/19 - History of Present Cardiac Event Onset Date: Enter Onset Date of cardiac illnesses in Comment field below Acute Myocardial Infarction within 12 months:: Yes - 02/10/2019 X 3 WITHIN A FEW DAYS PTCA or coronary stenting:: Yes - 02/10/2019 LAST TIME HAD STENT. Type of Symptoms:: CHEST PAINS Interventions with present event:: HEART CATH/STENTS Were there any complications?: SUFFERED TWO-THREE HEART ATTACKS WITHIN A MATTER OF DAYS. - Medications Home Medications: Ambulatory Orders Medication Instructions Recorded Levothyroxine [Synthroid] 100 mcg PO DAILY 04/17/14 Metoprolol Tartrate [Lopressor 50 mg PO BID 04/17/14 (beta mayo)] Gabapentin [Gralise] 600 mg PO QHS 04/29/15 Citalopram [Celexa] 20 mg PO QHS 07/11/16 Aspirin [Adult Aspirin Regimen] 81 mg PO DAILY 06/11/17 Omeprazole 20 mg PO DAILY 06/11/17 clopidogrel 75 mg tablet 75 mg PO DAILY #90 tab 08/14/18 Cyclobenzaprine HCl 10 mg PO QHS 02/08/19 Ferrous Sulfate 325 mg PO DAILY 02/08/19 atorvastatin 20 mg tablet 20 mg PO QHS #90 tab 03/04/19 - Allergies Allergies/Adverse Reactions: Allergies No Known Allergies Allergy (Verified 03/04/19 08:39) - Sleep Disorder Evaluation Hx of Sleep Apnea: Yes Do you snore loudly (louder than talking or can be heard through closed doors)?: Yes - HAS HOME CPAP Do you often feel tired/ fatigued/ sleepy during daytime?: No Has anyone observed you stop breathing during sleep?: No History of Hypertension (for STOP score): Yes STOP Results: Positive Advanced Directives - Advanced Directives Power of Lithographic Press Operator: No Living Will: No Advance Directives Information Provided: Yes Advance Directives on File: No DNR Order?:: No - MOLST See MOLST form: No Past Medical History - Past Medical Illness Medical History: Past Medical History (Last Reviewed 03/04/19 @ 10:41 by Seun Harris MD) Atherosclerosis of coronary artery of [place] heart without angina pectoris (Chronic) I25.10 Non-ST elevated myocardial infarction (non-STEMI) (Chronic) Onset Date: 02/08/19 I21.4 Chronic diastolic heart failure (Chronic) I50.32 Essential (primary) hypertension (Chronic) I10 Hyperlipidemia (Chronic) E78.5 Supraventricular tachycardia (Chronic) I47.1 Depression F32.9 GERD (gastroesophageal reflux disease) K21.9 Hypothyroidism E03.9 Nicotine dependence in remission F17.201 Obesity E66.9 Obstructive sleep apnea G47.33 Osteoarthritis M19.90 Other peripheral vascular disease I73.89 Stage 2 moderate COPD by GOLD classification J44.9 FEV1 65% Pulmonary hypertension (Inactive) I27.20 RVSP 31 mmHg - Past Surgical History Surgical History: Past Surgical History (Last Reviewed 03/04/19 @ 10:41 by Seun Harris MD) History of coronary artery stent placement (Chronic) Onset Date: 02/10/19 Z95.5 JFO-EVJ-Gzg-Distal LCx w/ 2.0 x 20 mm Promus Premier Stent 11/25/13; HYG-ERH-Seclmg LCx w/ 2.50 x 16 mm Synergy 02/10/2019 History of left knee replacement Onset Date: 04/17/17 Z96.652 Surgical History: total knee arthroplasty - Left., - - Tubal ligation, left knee surgery. Coronary artery stent placement 2013 Social History - Smoking History Smoking Status: Former smoker Hx Tobacco Use: Yes Hx Smoking Exposure: Yes - Alcohol Use Alcohol Usage: No - Substance Abuse Hx Substance Use: No - Occupation Occupation (List type of work in comments):: Retired - Hobbies, Recreation, Social Activities Hobbies: Other Recreational Activities: I am able to engage in most, but not all activities Social Environment - Status Marital Status: - Current Living Arrangements Living Environment:: Spouse - Safety Do you feel safe in your surroundings?: Yes Review of Systems - Review of Systems Hints: Right click = Denies (Slash). Left click = Reports ([place]) Review of Present Symptoms: Reports: Shortness of Breath with Exertion, Dizziness/Lightheadedness, Fatigue, Appetite - Normal, Sleep - Normal. 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 HARRIS WHO PRESENTS TO CR TODAY FOLLOWING RECENT MIs AND PCI INTERVENTIONS IN FEBRUARY 2019. THE PATIENT HAS PREVIOUSLY PARTICIPATED IN CR ABOUT 5 YEARS AGO FOLLOWING A PREVIOUS MO AND STENTS AT THE TIME. - Vital Signs Temperature: 98.5 F Respiratory Rate: 16 Pulse Ox: 94 Blood Pressure: 132/64 Nailbeds:: PINK - Pulse Pulse Rate: 100 Pulse Rhythm: Regular - Hypertension Blood Pressure Sitting - Right Arm: 132/64 - Stress Stress: Recent - HEALTH - Blood Cholesterol/Lipids Total Cholesterol (mg/dL) Goal = less than 200 mg/dL: 0 - NO RECENT LIPIDS AVAILABLE - Obesity Height: 4 ft 11.8 in Weight:: 224 lb 12.8 oz Weight in Pounds: 224.8 lbs Body Mass Index (BMI): 44.1 Nutritional Referral for Obesity: Yes - WHY WEIGHT PROGRAM, NUTRITIONAL THERAPY - Physical Inactivity Physical Inactivity: None - Risk Stratification Risk Guidelines: Lowest Risk: Risk Factor for Smoking, Risk Factor for Depression, Moderate Risk: Risk Factor for Dyslipidemia, Risk Factor for Hypertension, Highest Risk: Risk Factor for Obesity, Risk Factor for Sedentary Lifestyle - For Smoking Smoking Risk Guidelines: Smoking Low Risk: None or quit greater than 6 months ago. Smoking Moderate Risk: Smoker or quit 6 months or less ago. Smoking High Risk: Smoker - For Dyslipidemia Dyslipidemia Risk Guidelines: Low Risk: Moderate Risk: High Risk: 15-25% fat 25.1-29% fat >/= 30% fat. <7% sat fat 7-9% sat fat >9% sat fat. <150 mg chol 150-299 mg chol >/= 300 mg chol. LDL <100 LDL 100-129 LDL >/= 130. Chol/HDL ratio <5.0 Chol/HDL ratio 5.0-6.0 Chol/HDL ratio >6.0. Triglycerides <100 Triglycerides 100-149 Triglycerides >/= 150 - For Diabetes Mellitus Diabetes Risk Guidelines: Diabetes Low Risk: HgA1c <6.5% and/or FBG <120. Diabetes Moderate Risk: HgA1c 6.6-7.9% and/or FBG 120-180. Diabetes High Risk: HgA1c >/= 8% and/or FBG >180 - For Obesity/Overweight Obesity/Overweight Risk Guidelines: Obesity Low Risk: BMI <25.0. Obesity Moderate Risk: BMI 25-29.9. Obesity High Risk: BMI >/= 30.0 - For Hypertension Hypertension Risk Guidelines: Hypertension Low Risk: Systolic <120 and Diastolic <80. Hypertension Moderate Risk: Systolic 120-139 and Diastolic 80-89. Hypertension High Risk: Systolic >/= 140 and Diastolic >/= 90 - For Sedentary Lifestyle Sedentary Lifestyle Risk Guidelines: Sedentary Lifestyle Low Risk: >/= 1,500 kcal/week. Sedentary Lifestyle Moderate Risk: 700-1,499 kcal/week. Sedentary Lifestyle High Risk: < 700 kcal/week - For Depression Depression Risk Guidelines: Depression Low Risk: Not clinically depressed. Depression Moderate Risk: Mildly depressed. Depression High Risk: Clinically depressed Motivation - Motivation to Participate On a scale of 1 to 10, how prepared are you to commit to attending program?: 8 What do you see as barriers to successfully being able to complete the program?: NONE What do you see as the benefits of succesfully completing the program? In other words, what do you hope to get out of participating in the program?: [employer] Are there issues you are dealing with that will interfere with completing the program?: NO Do you have a spouse or signficant other, family or friends who will help support you to complete the program?: YES
--- NOTE | 2019-04-03 11:04 | CR.ITP_ITS ---
General Information - General Information Admitting Diagnosis: [place] PCI W/STENT Special Needs: CHRONIC COPD Oxygen: NONE - Education/Goals Barriers to Learning: Vision Impairment Individual Counseling: Initial Assessment: Nicotine/Smoking - ABSTAIN FROM TOBACCO USE, Abnormal Cholesterol Levels, High Blood Pressure, Overweight/Obesity Cardiac Rehabilitation Goals: 1. Maintain the individual as the primary focus of care. 2. To improve the patient's quality of life. 3. Identification of cardiac risk factors and provide cardiac risk factor management. 4. Enhance the psychosocial status of the patient. 5. Reconditioning enough to allow the patient to resume customary activities. 6. Control symptoms of cardiac disease Scale for measuring improvement of personal goals: Enter appropriate number in Comments. 2 = Unchanged. 3 = Slightly Better. 4 = Moderate Improvement. 5 = Met my Goal Personal Goals: Initial Assessment: Improve management of stress and emotions, Improve energy level, Improve knowledge of cardiac disease, Improve diet and eating habits (eat healthier), Control risk factors (learn risk factor modificat ion) Exercise - Initial Assessment - Visit Date of Eval: 04/03/19 - Stages of Change Stages of Change:: Action - Physician Prescribed Exercise Modalities: Treadmill, Airdyne, NuStep, SciFit Frequency (days/week): 3x/week for 12 weeks [36 sessions] Duration (Minutes):: 30 Intensity: 60-80% of age predicted maximum heart rate reserve METs - Progression: 0.5-1.0 MET, RPE 11-14 WEEK: 3. Target Heart Rate:: 104-136 - Hypertension Do any of the following apply?: Yes, Medication Resting Blood Pressure:: 138/64 - Intervention Home Exercise/Activity Goal:: Moderate Exercise 30 min/day x 5 days/wk - Education Goals:: Warm-up, RPE EDIL Scale, S/S, Safe Exercise, Self-Monitoring - Exercise Program Goals Exercise Program Goals: Aerobic Activity >30 min Nutrition - Initial Assessment - Program Goals Nutrition Program Goals: LDL <70. Total Cholesterol <200. HDL >45. Triglycerides <150. HgbA1C <7%. BMI <25 - Visit Date of Assessment:: 04/03/19 - Stages of Change Stages of Change:: Action - Diabetes Diabetes:: No Insulin: No Non-Insulin Dependent?: No Do you monitor your blood sugar at home?: No - Weight Management Height: 4 ft 11.8 in Weight:: 224 lb 12.8 oz - Intervention Referral to dietitian:: Yes - WHY WEIGHT, NUTRITIONAL THERAPY Referral to Diabetic Clinic:: No Will attend diet classes:: Yes - Education Gave educational materials for:: Healthy eating Tobacco - Initial Assessment - Program Goals Tobacco Program Goals: Complete smoking cessation. Attend education classes. Improve Knowledge Test score - Stage of Change Stages of Change:: Action - Learning Barriers Learning Barriers: Vision, Ready to Learn - Family Support Do you have family support?: Yes - Tobacco Use Tobacco Use: Non-smoker Do you use smokeless tobacco?: No - Intervention Smoking Cessation Referral:: No Individual Education/Counseling:: No Education Schedule Given:: Yes - Education Attended class for:: Treating Heart Disease, How The Heart Works, What it means to have Heart Disease, How Coronary Artery Disease is Diagnosed, Heart Procedures, What Heart Medications Do, Risk Factors & Modifications, Living an Active Life, Nutrition, Emotions & Heart Disease, Stress Management & Relaxation, Sleep Disorders & Heart Disease Psychosocial - Initial Assess - Target Goals Target Goals: Assess presence or absence of depression. Using a valid screening tool, maximizes coping skills. Positive support system - Stages of Change Stages of Change:: Action - Psychosocial Test Tool Used:: HANDS Depression Questionnaire - Intervention PS - Interventions: Yes Attend Stress Management Classes, Yes Uses Stress Management Skills, No Referral to Mental Health, No Referral to [facility] Case Management, No Referral to Physician Patient Health Questionnaire Initial Assessment 1. Little interest or pleasure in doing things: More than half the days 2. Feeling down, depressed, or hopeless: More than half the days 3. Trouble falling or staying asleep, or sleeping too much: Not at all 4. Feeling tired or having little energy: Several days 5. Poor appetite or overeating: Not at all 6. Feeling bad about yourself -- or that you are a failure or have let yourself or your family down: Nearly every day 7. Trouble concentrating on things, such as reading the newspaper or watching television: Not at all 8. Moving or speaking so slowly that other people could have noticed. Or the opposite - being so fidgety or restless that you have been moving around a lot more than usual: Not at all 9. Thoughts that you would be better off , or of hurting yourself in some way: Not at all How difficult have these problems made it for you to do your work, take care of things at home, or get along with other people?: Very difficult Total Score: 8 RENÉ-Q SV Test - Statements CAD is a disease of the arteries in the heart: True Examples of risk factors for heart disease: True Angina is chest pain or discomfort: True The benefits of resistance training include: True Eating more meat and dairy products: False Anti-platelet medications such as aspirin are important: False The only effective way to manage stress: True An exercise warm-up slowly increases heart rate: True Prepared, processed foods usually have high sodium: True Depression is common after a heart attack: True The statin medications lower cholesterol: True To control blood pressure, lower the amount of sodium: True If someone gets chest discomfort during walking: False Transfats are partially hydrogenated vegetable oils: True Sleep apnea that is not treated increases the risk: True To control cholesterol, one should become a vegetarian: False Someone knows if he/she is exercising at the right level: False Diabetes cannot be prevented with exercise & health eating: False Stress is a large risk for heart attack: True A diet that can help lower blood pressure is rich in: True - Total Score Total Correct Responses: 15 Self-Efficacy Initial Assessment We would like to know how confident you are in doing certain activities. Please select your confidence level for:: Select your confidence level for the following using the scale 1-10 where 1 is not at all confident and 10 is totally confident. Your score is the average of all 6 responses. Fatigue: How confident are you that you can keep the fatigue caused by your disease from interfering with the things you want to do? Select Number: 2 Physical Discomfort or Pain: How confident are you that you can keep the physical discomfort or pain of your disease from interfering with the things you want to do? Select Number: 2 Emotional Distress: How confident are you that you can keep the emotional distress caused by your disease from interfering with the things you want to do? Select Number: 2 Other Symptoms or Health Problems: How confident are you that you can keep other symptoms or health problems from interfering with the things you want to do? Select Number: 2 Different Tasks and Activities: How confident are you that you can do the different tasks and activities needed to manage your health condition so as to reduce your need to see a doctor? Select Number: 2 Medication: How confident are you that you can do things other than just taking medication to reduce how much your illness affects your everyday life? Select Number: 2 Total Score:: 2 Nutrition Survey - Nutrition Survey Instructions Scoring Instructions: Scoring is as follows: Yes = 1 points. No = 0 point. Patient score that is >/=12 is considered to be at potential nutritional risk and could benefit from a referral to a registered dietitian. - Nutrition Survey Initial Have you lost >10 lbs over the past 2 months without trying?: No Are you following a special diet at home for diabetes, low fat, or low salt?: Yes Are you interested in meeting with a dietitian for help understanding your diet?: No Do you eat less than 3 meals a day?: Yes Do you eat fatty meats (kimball, sausage, ribs, etc), fried foods, desserts, large amounts of salad dressings, margarine, butter, or cheese most days?: Yes Do you have food allergies? [Enter types in comment field]: No Do you eat in restaurants more than 3 times a week?: No Do you season food with salt, seasoning salt, or garlic salt?: No Do you used canned, boxed, frozen meals, or soups, seasoning packets?: Yes Total Score:: 4
[2019-04-03 11:11] VITALS: BP 138/64
[2019-04-03 11:12] VITALS: BP 132/64; PULSE 100; RESP 16; TEMP 36.9; O2SAT 94; BMI 44.1
--- NOTE | 2019-04-07 08:57 | PCM.CR.ITP ---
Nutrition - Initial Assessment - Program Goals Nutrition Program Goals: LDL <100 optimal. 100 - 129 Near optimal. 130 - 159 Borderline High. 160 - 189 High. Total Cholesterol <200 desirable. 200 - 239 Borderline High. >/= 240 High. HDL < 40 Low >/=60 High. Triglycerides <150 desirable. <199 optimal. VlDL 5 - 40. HgbA1C <7%. BMI <25 - Diabetes (Other Core Measures) Do you monitor your blood sugar at home?: No Nutrition - 30-Day Assessment - Program Goals Nutrition Program Goals: LDL <100 optimal. 100 - 129 Near optimal. 130 - 159 Borderline High. 160 - 189 High. Total Cholesterol <200 desirable. 200 - 239 Borderline High. >/= 240 High. HDL < 40 Low >/=60 High. Triglycerides <150 desirable. <199 optimal. VlDL 5 - 40. HgbA1C <7%. BMI <25 - Diabetes (Other Core Measures) Do you monitor your blood sugar at home?: No Nutrition - 60-Day Assessment - Program Goals Nutrition Program Goals: LDL <100 optimal. 100 - 129 Near optimal. 130 - 159 Borderline High. 160 - 189 High. Total Cholesterol <200 desirable. 200 - 239 Borderline High. >/= 240 High. HDL < 40 Low >/=60 High. Triglycerides <150 desirable. <199 optimal. VlDL 5 - 40. HgbA1C <7%. BMI <25 - Diabetes (Other Core Measures) Do you monitor your blood sugar at home?: No Nutrition - 90-Day Assessment - Program Goals Nutrition Program Goals: LDL <100 optimal. 100 - 129 Near optimal. 130 - 159 Borderline High. 160 - 189 High. Total Cholesterol <200 desirable. 200 - 239 Borderline High. >/= 240 High. HDL < 40 Low >/=60 High. Triglycerides <150 desirable. <199 optimal. VlDL 5 - 40. HgbA1C <7%. BMI <25 - Diabetes (Other Core Measures) Do you monitor your blood sugar at home?: No Nutrition - Final Assessment - Program Goals Nutrition Program Goals: LDL <100 optimal. 100 - 129 Near optimal. 130 - 159 Borderline High. 160 - 189 High. Total Cholesterol <200 desirable. 200 - 239 Borderline High. >/= 240 High. HDL < 40 Low >/=60 High. Triglycerides <150 desirable. <199 optimal. VlDL 5 - 40. HgbA1C <7%. BMI <25 - Diabetes (Other Core Measures) Do you monitor your blood sugar at home?: No
== END ==
PROVIDERS: Family Provider Family Medicine; PCP Family Medicine; Referring Provider Internal Medicine Cardiovascular Disease; Visit Provider Internal Medicine Cardiovascular Disease
DX: I25.10 Atherosclerotic heart disease of native coronary artery without angina pectoris (principal); I25.2 Old myocardial infarction; I11.0 Hypertensive heart disease with heart failure; I50.32 Chronic diastolic (congestive) heart failure; E78.5 Hyperlipidemia, unspecified; F32.9 Major depressive disorder, single episode, unspecified; I47.1 Supraventricular tachycardia; K21.9 Gastro-esophageal reflux disease without esophagitis; E03.9 Hypothyroidism, unspecified; G47.33 Obstructive sleep apnea (adult) (pediatric); M19.90 Unspecified osteoarthritis, unspecified site; J44.9 Chronic obstructive pulmonary disease, unspecified; I73.89 Other specified peripheral vascular diseases; E66.9 Obesity, unspecified; Z68.41 Body mass index [BMI] 40.0-44.9, adult; Z95.5 Presence of coronary angioplasty implant and graft; Z87.891 Personal history of nicotine dependence; Z79.82 Long term (current) use of aspirin; Z79.02 Long term (current) use of antithrombotics/antiplatelets; Z79.899 Other long term (current) drug therapy

== ENCOUNTER 2019-04-07 06:32 | Outpatient (RCR) | payer MEDICARE, SELFPAY ==
[2019-04-03 11:12] VITALS: BMI 44.1
== END 2019-04-11 23:59 ==
LOC: CR 06:32
PROVIDERS: PCP Family Medicine; Referring Provider Internal Medicine Cardiovascular Disease; Visit Provider Internal Medicine Cardiovascular Disease
DX: I25.10 Atherosclerotic heart disease of native coronary artery without angina pectoris (principal); Z95.5 Presence of coronary angioplasty implant and graft
CPT/HCPCS: 93798

== ENCOUNTER 2019-05-09 11:30 | Outpatient (RCR) | payer MEDICARE, SELFPAY ==
[2019-04-03 11:12] VITALS: BMI 44.1
--- NOTE | 2019-05-05 08:48 | CR.ITP_ITS ---
Diagnosis - General Information Admitting Diagnosis: PCI W/CORONARY STENT Secondary Diagnosis: I25.10 Personal Learning Style:: Audio/Visual, Written Barriers to Learning: Vision Impairment Stage of change r/t lifestyle modifications:: Action Gave educational material for:: Treating Heart Disease, Emotions & Heart Disease, Stress Management & Relaxation, Sleep Disorders & Heart Disease, How Th e Heart Works, What it means to have Heart Disease, How Coronary Artery Disease is Diagnosed, Heart Procedures, What Heart Medications Do, Risk Factors & Modifications, Living an Active Life, Nutrition - Education/Goals Individual Counseling: Initial Assessment: Nicotine/Smoking - REFER TO SMOKING CESSATION, Abnormal Cholesterol Levels - MEDICAL NUTRITION THERAPY, High Blood Pressure, Overweight/Obesity - WHY WEIGHT PROGRAM Cardiac Rehabilitation Goals: 1. Maintain the individual as the primary focus of care. 2. To improve the patient's quality of life. 3. Identification of cardiac risk factors and provide cardiac risk factor management. 4. Enhance the psychosocial status of the patient. 5. Reconditioning enough to allow the patient to resume customary activities. 6. Control symptoms of cardiac disease Personal Goals: Initial Assessment: Quit smoking (participate in smoking cessation, Improve management of stress and emotions, Improve energy level, Improve knowledge of cardiac disease, Improve diet and eating habits (eat healthier), Control risk factors (learn risk factor modification) Scale for measuring improvement of personal goals: Enter appropriate number in Comments. 2 = Unchanged. 3 = Slightly Better. 4 = Moderate Improvement. 5 = Met my Goal - Diagnosis & Disease Process Outcomes/Goals: Pt IDs own risk factors & lifestyle modifications by Session 10, Verbalizes symptoms of angina & response by session 3., Pt independently manages Plan/Interventions: Assist Pt to ID & engage in lifestyle modification to reduce CVD risk, Instruct on individual risk factors, Review symptoms of angina & emergency actions, Review secondary diagnosis & identify educational needs. 30 day Reassessments:: Progressing - Safety Referral to Physical Therapy: No Referral to [facility] Case Management: No Fall Risk Assessed:: Yes Assistive Devices:: Cane Exercise - 30-day Assessment - Visit Date of Eval: 05/05/19 Session #:: 7 - PATIENT HAS MISSED 3 SCHEDULED SESSIONS TO DATE. - Physician Prescribed Exercise Modalities: NuStep, SciFit Frequency: 3x/week for 12 weeks [36 sessions] Intensity: 60-80% of age predicted maximum heart rate reserve Current METSs:: 2.5 patient complains if we increase her MET levels. Target Heart Rate:: 104-136 Current RPE:: 13-14 Maximum Excercise HR:: 88 Resting Blood Pressure: 120/60 Maximum Exercise Blood Pressure: 132/68 EKG Type: NSR - Outcomes & Goals Goals:: Verbalizes understanding of THR, RPE & goal METS by session 6, Documents in home exercise log/reports 30 min aerobic 5 day/wk by DC, Demonstrates accurate pulse taking by DC - Intervention & Plan Exercise Program Goals: Instruct on personal THR & RPE, Instruct on MET level & personal MET goal, Show patient to take own pulse /validate performance until accurate, Instruct on home exercise - 30-day Reassessments 30 day Reassessments:: Progressing - Physical Activity Home Exercise Physical Activity - Home Exercise: Safe Exercise, Warm-up, Self-monitoring, Cool-Down, Home Exercise > 30 min Daily, Sitting Time <3 hours/daily - Outcomes & Goals Outcomes/Goals: Demonstrates correct Warm-up/exercise Cool-Down (S3) if = 2.5 METs, Verbalizes symptoms of exercise intolerance by Session 3 (S3), Demonstrate safe equipment use (S3) & follows exercise prescrition (6) - Intervention & Plan Plan/Intervention: Instruct warm-up & cool-down if exercising at > 2 METs, Instruct on symptoms of exercise intolerance & actions to take, Instruct & monitor on saf, Assess intial functional capacity & safety risk - 30-day Reassessments 30 day Reassessments:: Progressing Nutrition - 30-Day Assessment - Program Goals Nutrition Program Goals: LDL <100 optimal. 100 - 129 Near optimal. 130 - 159 Borderline High. 160 - 189 High. Total Cholesterol <200 desirable. 200 - 239 Borderline High. >/= 240 High. HDL < 40 Low >/=60 High. Triglycerides <150 desirable. <199 optimal. VlDL 5 - 40. HgbA1C <7%. BMI <25 Patient has diagnosis of Hyperlipidemia (ICD E78)?: Yes - Visit Date of Assessment:: 05/05/19 Session #:: 7 - Cholesterol/Lipids Triglycerides (mg/dL): 104 - 01/03/2017 Total Cholesterol (mg/dL): 175 LDL Cholesterol (mg/dL): 93 HDL Cholesterol (mg/dL): 61 Determine presence & major risk factors that modify LDL goal: Cigarette smoking, Hypertension or hypertensive medication, Age men > 45 years; women >/= 55 years Outcomes/Goals: Pt IDs own risk factors & lifestyle modifications by Session 10, Verbalizes symptoms of angina & response by session 3., Pt independently manages Intervention/Plan: Instruct on personal lipid levels & lipid goals/NCEP guidelines, Instruct on cholesterol Referral to dietitian:: Yes - MEDICAL NUTRITION THERAPY- PATIENT DECLINED - Diabetes (Other Core Measures) Diabetes Type: Not Applicable - Weight Mgt (Other Care) Not Applicable: No Height: 4 ft 11.8 in Weight:: 221 lb 8 oz BMI: 43.5 Diagnosis Overweight/Obesity BMI> 30% ICD-10 E66: Yes Diagnosis High BMI/Morbid Obesity BMI> 35% ICD-10 Z68: Yes Outcomes/Goals: Pt sets, maintains & shows weight loss goal & trend during rehab Intervention/Plan: Instruct on ideal BMI & set weight loss goal w/patient, Assist pt to ID & incorporate diet changes for weight loss by S9, Refer to Structured Weight Loss program as appropriate - PATIENT REFUSED, Encourage goal of using 250-300dcal per session for weight loss 30 day Reassessments:: Not Met - Healthy Eating Habits Will attend diet classes:: Yes Outcomes/Goals:: Consume diet rich in vegs,fruits,whole grain/high fiber,fish,lean meat, Limit sat/trans fats,cholesterol & added salts & sugars Intervention/Plan:: Assess current eating habits 30-day Reassessments:: Progressing Reassessment Notes & Comments:: Patient has declined any professional support from Nutritional Services which could aid her in weight loss and dietary counseling to control cholesterol and blood pressure. - Education Gave educational materials for:: Healthy eating Medical- 30-Day Assessment - Visit Date of Eval: 05/05/19 Session #:: 7 - Medication Compliance Preventative Medication(s):: Aspirin, Clopidogrel/P2Y12 inhibit, Statin/lipid, Beta mayo H/O mental health issues: depression, anxiety, or addiction?: Yes Doesn?t believe in the benefits of treatment?: No Believes medications are unnecessary or harmful?: No Has a concern about medication side effects?: No Expresses concern over the cost of medications?: No Outcomes/Goals: Verbalizes medications,desired effect & common side effects @ DC, Pt self-reports following medication regimen, Keeps card in wallet w/medications listed by DC Interventions/plans: Instruct on medication effects & side effects, Review medication list w/patient every two weeks, Instruct importance of taking meds as ordered & assist problem solving 30-day Reassessments:: Progressing - Tobacco Use Tobacco Use: Cigarettes - Patient presents to [facility] smelling of cigarette smoke, either she is still smokingo r exposed to second-hand smoke. Do you use smokeless tobacco?: No Outcomes/Goals: Smoking cessation achieved or maintained by discharge, Identify aids/strategies for achieving smoking cessation by session 6 Interventions/plan: Instruct on effects of smoking & provide smoking cessation resource, Assist pt to set quit date & provide encouragement, Assist pt to develop strategies to achieve/maintain quit date, Assist pt w/nicotine replacement & medication for cessation success 30-day Reassessments:: Progressing - Hypertension Resting Blood Pressure:: 120/60 [place] [employer] Hypertension Guidelines: [place] [employer] Hypertension Guidelines. Normal BP Less than 120/80. Elevated BP 120/80. Hypertension Stage 1: BP 130-139/80-89. Hypertesnion Stage 2: BP 140 or higher/90 or higher. Hypertension Crisis: BP higher than 180/120 Peak Exercise Blood Pressure:: 132/68 Outcomes/Goals: Able to verbalize/achieve optimal blood pressure <130/80, Incorporates diet changes & exercise for blood pressure control by DC Interventions/plan: Instruct on optimal blood pressure, hypertension & medications, Instruct on effects of sodium, alcohol, stress, exercise &hypertension 30 day Reassessments:: Progressing - Tobacco Cessation Referral Smoking Cessation Referral:: Yes Individual Education/Counseling:: Yes Education Schedule Given:: Yes Psychosocial - 30-Day Assess - VIsit Date of Eval: 05/05/19 Session #:: 7 Not Applicable: No History of previous Mental disease:: Yes History of Emotional Disorders: Anxious, Depression - Target Goals Target Goals: Assess presence or absence of depression. Using a valid screening tool, maximizes coping skills. Positive support system - Psychosocial Test Tool Used:: Lucero Hidalgo QOL Cardiac, PHQ-9 Questionnaire phq-9 Severity: Severity. 1-4 Minimal Depression. 5-9 Mild Depression. 10-14 Moderate Depression. 15-19 Moderately Sever Depression. 20-27 Severe Depression. Rule: See PHQ-9 Score: 10 Total Score:: 10 - Referral to Behavioral Health PS - Interventions: Yes Referral to Physician if PHQ-9 if score is 5-9: - Patient could be referred to Behavioral Health based on her PHQ-9 score., Yes Attend Stress Management Classes, No Referral to Behavioral Health if PHQ-9 score >9: - Patient could benefit from professional counseling based on her PHQ- 9 scores., No Referral to [facility] - Outcomes/Goals: See list Psychosocial Outcomes/Goals:: ID's personal stressors & 2 strategies to manage stress by discharge - Intervention/Plan: See List Interventions/Plan:: Assess stressors,coping strategies & signs of derpression on admission, Instruct/assist pt to develop coping & personal stress Mgt strategies, Instruct patient to recognize signs & symptoms of depression, Instruct patient to recog Patient Health Questionnaire 30-Day Re-eval Assessment 1. Little interest or pleasure in doing things: Nearly every day 2. Feeling down, depressed, or hopeless: More than half the days 3. Trouble falling or staying asleep, or sleeping too much: Not at all 4. Feeling tired or having little energy: More than half the days 5. Poor appetite or overeating: Not at all 6. Feeling bad about yourself -- or that you are a failure or have let yourself or your family down: Nearly every day 7. Trouble concentrating on things, such as reading the newspaper or watching television: Not at all 8. Moving or speaking so slowly that other people could have noticed. Or the opposite - being so fidgety or restless that you have been moving around a lot more than usual: Not at all 9. Thoughts that you would be better off , or of hurting yourself in some way: Not at all How difficult have these problems made it for you to do your work, take care of things at home, or get along with other people?: Very difficult Total Score: 10 Self-Efficacy 30-Day Re-eval Assessment We would like to know how confident you are in doing certain activities. Please select your confidence level for:: Select your confidence level for the following using the scale 1-10 where 1 is not at all confident and 10 is totally confident. Your score is the average of all 6 responses. Fatigue: How confident are you that you can keep the fatigue caused by your disease from interfering with the things you want to do? Select Number: 3 Physical Discomfort or Pain: How confident are you that you can keep the ph ysical discomfort or pain of your disease from interfering with the things you want to do? Select Number: 3 Emotional Distress: How confident are you that you can keep the emotional distress caused by your disease from interfering with the things you want to do? Select Number: 3 Other Symptoms or Health Problems: How confident are you that you can keep other symptoms or health problems from interfering with the things you want to do? Select Number: 3 Different Tasks and Activities: How confident are you that you can do the different tasks and activities needed to manage your health condition so as to reduce your need to see a doctor? Select Number: 3 Medication: How confident are you that you can do things other than just taking medication to reduce how much your illness affects your everyday life? Select Number: 3 Total Score:: 3
[2019-05-05 09:10] VITALS: BP 120/60; BP 132/68; BMI 43.5
== END 2019-05-10 23:59 ==
LOC: CR 11:30
PROVIDERS: PCP Family Medicine; Referring Provider Internal Medicine Cardiovascular Disease; Visit Provider Internal Medicine Cardiovascular Disease
DX: I25.10 Atherosclerotic heart disease of native coronary artery without angina pectoris (principal); Z95.5 Presence of coronary angioplasty implant and graft
CPT/HCPCS: 93798

== ENCOUNTER 2019-05-21 00:50 | Emergency (ER) | payer MEDICARE, SELFPAY ==
[2019-04-03 11:12] VITALS: BMI 44.1
[2019-05-05 09:10] VITALS: BMI 43.5
[2019-05-21 00:52] VITALS: BP 159/74; PULSE 71; PULSE 74; RESP 12; RESP 17; TEMP 36.8; O2SAT 96; O2SAT 97; BMI 43.0
--- NOTE | 2019-05-21 01:04 | CT_ITS ---
We are attempting to reach an attending provider to discuss findings. An addendum with communication details will be sent when the communication is complete. STUDY: CT BRAIN WITHOUT CONTRAST REASON FOR EXAM: Female, 58 years old. FACIAL DROOP LEFT SIDE, PAIN LEFT SIDE EAR, LKW 3-10-20 AT 230, HX ND, STENT, HTN RADIATION DOSAGE (If Supplied By Facility): CTDIvol = ( 44.99 ) mGy, DLP = ( 812.98 ) mGycm TECHNIQUE: Transaxial CT imaging of the brain was performed without administration of intravenous contrast material. Individualized dose optimization techniques were used for this CT. COMPARISON: No relevant priors. FINDINGS: Normal soft tissue structures. Normal calvarium. Normal size ventricles and extra-axial spaces for the patient''s age. Normal white matter tracts of the cerebral hemispheres. Normal basal ganglia and thalami. Normal brainstem. Normal cerebellum. There is no intracranial hemorrhage. There are no findings of an acute ischemic infarction. Normal visualized paranasal sinuses. CT/Brain/Head without Contrast IMPRESSION: Normal unenhanced CT scan of the brain. Electronically Signed: Vannesa Ramos MD at 1:21 EDT , Service support ,
--- NOTE | 2019-05-21 01:04 | EKG12_ITS ---
Test Reason : STROKE Blood Pressure : / mmHG Vent. Rate : 067 BPM Atrial Rate : 067 BPM P-R Int : 124 ms QRS Dur : 074 ms QT Int : 426 ms P-R-T Axes : 032 018 012 degrees QTc Int : 450 ms Normal sinus rhythm Low voltage QRS Borderline ECG Confirmed by CHAYITO BORGES, DOLORES ([id number]), assistant film editor MONET SUTTON ([id number]) on 05/23/2019 11:44:01 AM Referred By: NICKI Confirmed By:HUBER STRATTON MD
--- NOTE | 2019-05-21 01:04 | ED.RN ---
PULLED OLD SANDIE FOR
[2019-05-21 01:08] VITALS: O2SAT 95
--- NOTE | 2019-05-21 01:09 | ED.RN ---
FACE SHEET FAXED
--- NOTE | 2019-05-21 01:10 | ED.VISSUMM ---
- ER Visit Summary Date of Service: 05/21/19 Chief Complaint: Left-sided facial droop History of Present Illness: The patient is a 58 F who presents with a left-sided facial droop. She woke up this morning around 10 AM with this. She last went to bed well at 230 yesterday morning. She notes a facial droop on the left-hand side but no paresthesias, weakness of her arms or legs. She denies slurred speech. No trouble with ambulation. She denies a headache, nausea or vomiting. She does have some slight pain in the neck. No history of stroke in the past. No fevers or any other recent illnesses. Physical Examination: Vital signs reviewed. HEENT exam does show a left-sided facial droop. Her left forehead does not wrinkle when raising her eyebrows. Heart is regular rate and rhythm without murmurs. Lungs are clear to auscultation. Abdomen is soft and nontender. Extremities reveal no edema. Skin exam normal. Neurologic exam has an NIH stroke scale of 3. She has a facial droop on the left. She has decreased sensation to the left face. Sensation to the rest of the body is normal. No weakness of her arms or legs. Test Results: A stroke team was called due to it being less than 24 hours after symptom onset. She is not a TPA candidate because she is out of the window. CAT scan of the head was normal. Labs and EKG are also unremarkable. I discussed this with the stroke neurologist at [facility]. 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 I will treat the patient with acyclovir and prednisone. She is going to call her doctor for follow-up. Emergency Department Course and Treatment: [] Treatment Plan: [] Disposition: Discharge Impression: Miller's palsy This note was generated with [employer] software. It may contain incorrect words, spelling, and punctuation that were not noted in review of the chart prior to signing ED Disposition - Plan for ED Patient: Disposition: Home or Assisted Living Instructions: Miller's Palsy Prescriptions: Acyclovir 1 tab PO 5X/DAY #50 tab Transmission Status: Pending to [facility]/pharmacy #[id number] Prednisone [Deltasone] 60 mg PO DAILY #15 tab Transmission Status: Pending to [facility]/pharmacy #[id number] Referrals: Dawn Rivera MD [Primary Care Provider] -
[2019-05-21 01:16] LABS: Prothrombin Time (Protime)PT. 13.2 SECONDS (11.7-14.9)
[2019-05-21 01:22] VITALS: BP 113/66; PULSE 68; RESP 17; O2SAT 94
[2019-05-21 01:28] LABS: Anion Gap 6 (5-15); BUN 9 mg/dL (7-18); BUN/Creat Ratio 11.5 RATIO (10-20); Calcium,Total 9.1 mg/dL (8.5-10.1); Chloride 107 mmol/L (98-107); Creatinine, Serum 0.78 mg/dL (0.55-1.02); EST Glomerular Filtration Rate 79 mL/min (>60); Est Glom Filt Rate - Afr Amer 96 mL/min (>60); Estimated Creatinine Clearance 55.09 ml/min; Glucose 147 mg/dL (74-106); Potassium 3.9 mmol/L (3.5-5.1); Sodium Level 140 mmol/L (136-145)
[2019-05-21 01:30] VITALS: BP 113/62; PULSE 67; RESP 16; O2SAT 94
[2019-05-21 01:34] LABS: Absolute Lymphocyte Count 2.63 X10^3/uL (0.83-4.51); Absolute Neutrophil Count 3.9 X10^3/uL (2.0-7.7); Basophil# 0.03 X10^3/uL; Basophil% 0.4 % (0-1); Eosinophil# 0.11 X10^3/uL; Eosinophils% 1.5 % (0-5); Hematocrit 41.2 % (37-47); Hemoglobin 13.2 g/dL (12.0-15.0); Lymphocyte # 2.63 X10^3/ul (4.0); Lymphocyte % 36.4 % (19-41); Mean Corpuscular Hgb 29.8 pg (27.0-32.0); Mean Platelet Vol. 9.8 fl (6.2-12.0); Monocyte# 0.55 X10^3/uL; Monocyte% 7.6 % (0-10); NRBC Flagged by Analyzer 0 % (0-5); Neutrophil # 3.89 X10^3/uL (2.7-7.7); Neutrophil % 53.8 % (47-70); Platelet Count 299 K/mm3 (150-450); RBC Distribution Width CV 13.2 % (11.6-14.6); RBC Distribution Width SD 45.1 fl (35.1-43.9); Red Blood Count 4.43 M/mm3 (4.2-5.4); White Blood Count 7.2 K/mm3 (4.4-11.0)
[2019-05-21 02:02] VITALS: BP 117/59; PULSE 68; RESP 18; O2SAT 96
[2019-05-21] MEDS: Acyclovir 200 MG Capsule 400 MG PO (02:03)
[2019-05-21] MEDS: predniSONE 20 MG Tablet 60 MG PO (02:03)
[2019-05-21 02:13] VITALS: BP 117/59; PULSE 72; RESP 14; O2SAT 98
--- NOTE | 2019-05-21 02:17 | ED.RN ---
PT A+OX4, THIS RN EDUCATED ON WRITTEN AND VERBAL DISCHARGE INSTRUCTIONS AND HOME GOING PRESCRIPTIONS. PT EDUCATED ON OCAMPO'S PALSY, AND CARE AT HOME. PT TO FOLLOW UP WITH PCP AND RETURN TO ED WITH ANY NEW OR WORSENED SX. PT ABLE TO SWALLOW WITHOUT DIFFICULTY, AND TAKES FIRST DOSE OF MEDICATION IN ED. PT IV D/C AND COVERED WITH 2X2 GAUZE AND PAPER TAPE. PT DRESSES SELF AND AMBULATES OUT OF DEPT WITH SPOUSE.
[2019-05-21 10:20] LABS: Bedside Glucose 154 mg/dL (70-110)
== END 2019-05-21 02:20 | disposition home or self-care (01) ==
PROVIDERS: Emergency Provider Emergency Medicine; PCP Family Medicine
DX: G51.0 Bell's palsy (principal); I25.10 Atherosclerotic heart disease of native coronary artery without angina pectoris; K21.9 Gastro-esophageal reflux disease without esophagitis; E03.9 Hypothyroidism, unspecified; I47.1 Supraventricular tachycardia; Z79.82 Long term (current) use of aspirin; Z79.02 Long term (current) use of antithrombotics/antiplatelets; Z79.899 Other long term (current) drug therapy; Z72.0 Tobacco use
CPT/HCPCS: 70450; 80048; 82962; 84484; 85025; 85610; 85730; 93005; 99251; 99285; A4216; G0463

== ENCOUNTER 2019-06-06 11:30 | Outpatient (RCR) | payer MEDICARE, SELFPAY ==
[2019-04-03 11:12] VITALS: BMI 44.1
[2019-05-05 09:10] VITALS: BMI 43.5
[2019-05-11 00:57] VITALS: BP 120/60; BP 132/68
--- NOTE | 2019-06-02 08:06 | CR.ITP_ITS ---
Diagnosis - General Information Admitting Diagnosis: PCI with coronary stent Personal Learning Style:: Audio/Visual, Demonstration, Group, Individual Preference, Written Stage of change r/t lifestyle modifications:: Action Gave educational material for:: Treating Heart Disease, Emotions & Heart Disease, Stress Management & Relaxation, Sleep Disorders & Heart Disease, How The Heart Works, What it means to have Heart Disease, How Coronary Artery Disease is Diagnosed, Heart Procedures, What Heart Medications Do, Risk Factors & Modifications, Living an Active Life, Nutrition - Education/Goals Cardiac Rehabilitation Goals: 1. Maintain the individual as the primary focus of care. 2. To improve the patient's quality of life. 3. Identification of cardiac risk factors and provide cardiac risk factor management. 4. Enhance the psychosocial status of the patient. 5. Reconditioning enough to allow the patient to resume customary activities. 6. Control symptoms of cardiac disease Scale for measuring improvement of personal goals: Enter appropriate number in Comments. 2 = Unchanged. 3 = Slightly Better. 4 = Moderate Improvement. 5 = Met my Goal - Diagnosis & Disease Process Outcomes/Goals: Pt IDs own risk factors & lifestyle modifications by Session 10, Verbalizes symptoms of angina & response by session 3., Pt independently m tigre, Other Additional Outcomes/Goals: 30 day Reassessments:: Progressing 30 day Reassessments:: Progressing 30 day Reassessments:: Progressing 30 day Reassessments:: Progressing Final Reassessments:: Progressing - Safety Referral to Physical Therapy: No Fall Risk Assessed:: Yes Assistive Devices:: Cane Exercise - 60-day Assessment - Visit Date of Eval: 06/02/19 Session #:: 16 - Physician Prescribed Exercise Modalities: NuStep, SciFit Frequency: 3x/week for 12 weeks [36 sessions] Intensity: 60-80% of age predicted maximum heart rate reserve METs - Progression 0.5-1.0 weekly:: .5 METS Current METSs:: 2.5 Target Heart Rate:: 104-136 Max HR 98 Current RPE:: 13 Maximum Excercise HR:: 77 Resting Blood Pressure: 138/78 Maximum Exercise Blood Pressure: 140/72 EKG Type: NSR - Intervention & Plan Exercise Program Goals: Instruct on personal THR & RPE, Instruct on MET level & personal MET goal, Show patient to take own pulse /validate performance until accurate, Instruct on home exercise, Other additional plan/int - 30-day Reassessments 30 day Reassessments:: Progressing - Physical Activity Home Exercise Physical Activity - Home Exercise: Safe Exercise, Warm-up, Self-monitoring, Cool-Down, Home Exercise > 30 min Daily, Sitting Time <3 hours/daily - Outcomes & Goals Outcomes/Goals: Demonstrates correct Warm-up/exercise Cool-Down (S3) if = 2.5 METs, Verbalizes symptoms of exercise intolerance by Session 3 (S3), Demonstrate safe equipment use (S3) & follows exercise prescrition (6), Other: See below - Intervention & Plan Plan/Intervention: Instruct warm-up & cool-down if exercising at > 2 METs, Instruct on symptoms of exercise intolerance & actions to take, Instruct & monitor on saf, Assess intial functional capacity & safety risk, Other See below - 30-day Reassessments 30 day Reassessments:: Progressing Nutrition - 60-Day Assessment - Program Goals Nutrition Program Goals: LDL <100 optimal. 100 - 129 Near optimal. 130 - 159 Borderline High. 160 - 189 High. Total Cholesterol <200 desirable. 200 - 239 Borderline High. >/= 240 High. HDL < 40 Low >/=60 High. Triglycerides <150 desirable. <199 optimal. VlDL 5 - 40. HgbA1C <7%. BMI <25 - Diabetes (Other Core Measures) Diabetes Type: Not Applicable - Weight Mgt (Other Care) Height: 4 ft 11.8 in Weight:: 100.47 kg BMI: 43.5 Diagnosis High BMI/Morbid Obesity BMI> 35% ICD-10 Z68: Yes Intervention/Plan: Instruct on ideal BMI & set weight loss goal w/patient, Assist pt to ID & incorporate diet changes for weight loss by S9, Refer to Structured Weight Loss program as appropriate, Encourage goal of using 250- 300dcal per session for weight loss, Other additional plan/interventions 30 day Reassessments:: Progressing - Healthy Eating Habits Will attend diet classes:: Yes Outcomes/Goals:: Consume diet rich in vegs,fruits,whole grain/high fiber,fish,lean meat, Limit sat/trans fats,cholesterol & added salts & sugars, Other additional outcome/goals: 30-day Reassessments:: Progressing - Education Gave educational materials for:: Signs & symptoms of hypoglycemia, Signs & symptoms of hyperglycemia, Relate diabetes to coronary artery disease, Healthy eating Medical- 60-Day Assessment - Visit Date of Eval: 06/02/19 - Medication Compliance Preventative Medication(s):: Aspirin, Clopidogrel/P2Y12 inhibit, Statin/lipid, Beta mayo H/O mental health issues: depression, anxiety, or addiction?: Yes Doesn?t believe in the benefits of treatment?: No Believes medications are unnecessary or harmful?: No Has a concern about medication side effects?: No Expresses concern over the cost of medications?: No Outcomes/Goals: Verbalizes medications,desired effect & common side effects @ DC, Pt self-reports following medication regimen, Keeps card in wallet w/medications listed by DC, Other additional outcome/goals: Interventions/plans: Instruct on medication effects & side effects, Review medication list w/patient every two weeks, Instruct importance of taking meds as ordered & assist problem solving, Other additional 30-day Reassessments:: Progressing - Tobacco Use Tobacco Use: Non-smoker Do you use smokeless tobacco?: No Interventions/plan: Instruct on effects of smoking & provide smoking cessation resource, Assist pt to set quit date & provide encouragement, Assist pt to develop strategies to achieve/maintain quit date, Assist pt w/nicotine replacement & medication for cessation success, Other additional plan/interventions 30-day Reassessments:: Progressing - Hypertension [employer] [employer] Hypertension Guidelines: [place] [employer] Hypertension Guidelines. Normal BP Less than 120/80. Elevated BP 120/80. Hypertension Stage 1: BP 130-139/80-89. Hypertesnion Stage 2: BP 140 or higher/90 or higher. Hypertension Crisis: BP higher than 180/120 Outcomes/Goals: Able to verbalize/achieve optimal blood pressure <130/80, Incorporates diet changes & exercise for blood pressure control by DC, Other additional outcomes/goals Interventions/plan: Instruct on optimal blood pressure, hypertension & medications, Instruct on effects of sodium, alcohol, stress, exercise &hypertension, Other additional plan/interventions 30 day Reassessments:: Progressing - Tobacco Cessation Referral Smoking Cessation Referral:: Yes Individual Education/Counseling:: Yes Education Schedule Given:: Yes Psychosocial - 60-Day Assess - VIsit Date of Eval: 06/02/19 - Target Goals Target Goals: Assess presence or absence of depression. Using a valid screening tool, maximizes coping skills. Positive support system - Psychosocial Test Tool Used:: [place] QOL Cardiac, PHQ-9 Questionnaire phq-9 Severity: Severity. 1-4 Minimal Depression. 5-9 Mild Depression. 10-14 Moderate Depression. 15-19 Moderately Sever Depression. 20-27 Severe Depression. Rule: - Outcomes/Goals: See list Psychosocial Outcomes/Goals:: ID's personal stressors & 2 strategies to manage stress by discharge, Other Additional outcome/goals: - Intervention/Plan: See List Interventions/Plan:: Assess stressors,coping strategies & signs of derpression on admission, Instruct/assist pt to develop coping & personal stress Mgt strat egies, Refer to Behavioral Health if appropriate, Refer to Physician if appropriate, Instruct patient to recognize signs & symptoms of depression, Instruct patient to recog, Other additional plan/intervention - 30-day Reassessments: 30 day Reassessments:: Progressing Patient Health Questionnaire 60-Day Re-eval Assessment 1. Little interest or pleasure in doing things: Nearly every day 2. Feeling down, depressed, or hopeless: More than half the days 3. Trouble falling or staying asleep, or sleeping too much: Not at all 4. Feeling tired or having little energy: More than half the days 5. Poor appetite or overeating: Not at all 6. Feeling bad about yourself -- or that you are a failure or have let yourself or your family down: Nearly every day 7. Trouble concentrating on things, such as reading the newspaper or watching television: Not at all 8. Moving or speaking so slowly that other people could have noticed. Or the opposite - being so fidgety or restless that you have been moving around a lot more than usual: Not at all 9. Thoughts that you would be better off , or of hurting yourself in some wa y: Not at all How difficult have these problems made it for you to do your work, take care of things at home, or get along with other people?: Very difficult Total Score: 10 Self-Efficacy 60-Day Re-eval Assessment We would like to know how confident you are in doing certain activities. Please select your confidence level for:: Select your confidence level for the following using the scale 1-10 where 1 is not at all confident and 10 is totally confident. Your score is the average of all 6 responses. Fatigue: How confident are you that you can keep the fatigue caused by your disease from interfering with the things you want to do? Select Number: 3 Physical Discomfort or Pain: How confident are you that you can keep the physical discomfort or pain of your disease from interfering with the things you want to do? Select Number: 3 Emotional Distress: How confident are you that you can keep the emotional distress caused by your disease from interfering with the things you want to do? Select Number: 3 Other Symptoms or Health Problems: How confident are you that you can keep other symptoms or health problems from interfering with the things you want to do? Select Number: 3 Different Tasks and Activities: How confident are you that you can do the different tasks and activities needed to manage your health condition so as to reduce your need to see a doctor? Select Number: 3 Medication: How confident are you that you can do things other than just taking medication to reduce how much your illness affects your everyday life? Select Number: 3 Total Score:: 3
[2019-06-02 08:28] VITALS: BP 138/78; BMI 43.5
== END 2019-06-10 23:59 ==
LOC: CR 11:30
PROVIDERS: PCP Family Medicine; Referring Provider Internal Medicine Cardiovascular Disease; Visit Provider Internal Medicine Cardiovascular Disease
DX: I25.10 Atherosclerotic heart disease of native coronary artery without angina pectoris (principal); Z95.5 Presence of coronary angioplasty implant and graft
CPT/HCPCS: 93798

== ENCOUNTER 2019-06-11 09:38 | Outpatient (RCR) | payer MEDICARE, SELFPAY ==
[2019-06-02 08:28] VITALS: BMI 43.5
[2019-06-11 00:43] VITALS: BP 120/60; BP 132/68; BP 138/78
--- NOTE | 2019-06-13 07:22 | PCM.CR.ITP ---
Exercise - Initial Assessment - Visit Date of Eval: 06/13/19 - With obvious neccessary interupption in the delivery of CR, the patient's program is on hold due to the coronovirus. The CR program has been closed for patient safety reasons.
== END 2019-07-10 23:59 ==
LOC: CR 09:38
PROVIDERS: PCP Family Medicine; Referring Provider Internal Medicine Cardiovascular Disease; Visit Provider Internal Medicine Cardiovascular Disease
DX: I25.10 Atherosclerotic heart disease of native coronary artery without angina pectoris (principal); Z95.5 Presence of coronary angioplasty implant and graft
CPT/HCPCS: 93798

== ENCOUNTER 2019-08-08 11:30 | Outpatient (RCR) | payer MEDICARE, SELFPAY ==
[2019-06-02 08:28] VITALS: BMI 43.5
[2019-07-11 00:14] VITALS: BP 120/60; BP 132/68; BP 138/78
--- NOTE | 2019-07-11 12:19 | CR.ITP_ITS ---
Diagnosis - General Information Admitting Diagnosis: PCI with coronary stent Personal Learning Style:: Audio/Visual, Demonstration, Group, Individual Preference, Written Stage of change r/t lifestyle modifications:: Action Gave educational material for:: Treating Heart Disease, Emotions & Heart Disease, Stress Management & Relaxation, Sleep Disorders & Heart Disease, How The Heart Works, What it means to have Heart Disease, How Coronary Artery Disease is Diagnosed, Heart Procedures, What Heart Medications Do, Risk Factors & Modifications, Living an Active Life, Nutrition - Education/Goals Cardiac Rehabilitation Goals: 1. Maintain the individual as the primary focus of care. 2. To improve the patient's quality of life. 3. Identification of cardiac risk factors and provide cardiac risk factor management. 4. Enhance the psychosocial status of the patient. 5. Reconditioning enough to allow the patient to resume customary activities. 6. Control symptoms of cardiac disease Scale for measuring improvement of personal goals: Enter appropriate number in Comments. 2 = Unchanged. 3 = Slightly Better. 4 = Moderate Improvement. 5 = Met my Goal - Diagnosis & Disease Process Outcomes/Goals: Pt IDs own risk factors & lifestyle modifications by Session 10, Verbalizes symptoms of angina & response by session 3., Pt independently m tigre, Other Additional Outcomes/Goals: Plan/Interventions: Assist Pt to ID & engage in lifestyle modification to reduce CVD risk, Instruct on individual risk factors, Review symptoms of angina & emergency actions, Review secondary diagnosis & identify educational needs., Other see comment 30 day Reassessments:: Progressing 30 day Reassessments:: Progressing - Safety Referral to Physical Therapy: No Referral to [facility] Case Management: No Fall Risk Assessed:: Yes Assistive Devices:: Cane Exercise - 60-day Assessment - Visit Date of Eval: 07/11/19 Session #:: 19 Comments:: Pt was on hold for COVID 19 precaution. Pt is now resuming rehab. - Physician Prescribed Exercise Modalities: NuStep, SciFit Frequency: 3x/week for 12 weeks [36 sessions] Intensity: 60-80% of age predicted maximum heart rate reserve Current METSs:: 2.5 Target Heart Rate:: 104-136 Current RPE:: 12-13 Maximum Excercise HR:: 91 Resting Blood Pressure: 118/48 Maximum Exercise Blood Pressure: 128/64 EKG Type: NSR - Outcomes & Goals Goals:: Verbalizes understanding of THR, RPE & goal METS by session 6, Documents in home exercise log/reports 30 min aerobic 5 day/wk by DC, Demonstrates accurate pulse taking by DC, Other additional outcome/goals: see below - Intervention & Plan Exercise Program Goals: Instruct on personal THR & RPE, Instruct on MET level & personal MET goal, Show patient to take own pulse /validate performance until accurate, Instruct on home exercise, Other additional plan/int - 30-day Reassessments 30 day Reassessments:: Progressing - Physical Activity Home Exercise Physical Activity - Home Exercise: Safe Exercise, Warm-up, Self-monitoring, Cool-Down, Home Exercise > 30 min Daily, Sitting Time <3 hours/daily - Outcomes & Goals Outcomes/Goals: Demonstrates correct Warm-up/exercise Cool-Down (S3) if = 2.5 METs, Verbalizes symptoms of exercise intolerance by Session 3 (S3), Demonstrate safe equipment use (S3) & follows exercise prescrition (6), Other: See below - Intervention & Plan Plan/Intervention: Instruct warm-up & cool-down if exercising at > 2 METs, Instruct on symptoms of exercise intolerance & actions to take, Instruct & monitor on saf, Assess intial functional capacity & safety risk, Other See below - 30-day Reassessments 30 day Reassessments:: Progressing Nutrition - 60-Day Assessment - Program Goals Nutrition Program Goals: LDL <100 optimal. 100 - 129 Near optimal. 130 - 159 Borderline High. 160 - 189 High. Total Cholesterol <200 desirable. 200 - 239 Borderline High. >/= 240 High. HDL < 40 Low >/=60 High. Triglycerides <150 desirable. <199 optimal. VlDL 5 - 40. HgbA1C <7%. BMI <25 - Visit Date of Assessment:: 07/11/19 Session #:: 16 - Cholesterol/Lipids Determine presence & major risk factors that modify LDL goal: Hypertension or hypertensive medication, Low HDL cholesterol <40 mg/dL*, Family history of premature CHD in Male < 55 years: female <65 yearsFa, Age men > 45 years; women >/= 55 years Intervention/Plan: Advocate for lipid panel cholesterol medication if applicable, Instruct on personal lipid levels & lipid goals/NCEP guidelines, Instruct on cholesterol, Other additional plan/int 30-day Reassessments:: Progressing - Weight Mgt (Other Care) Height: 4 ft 11.8 in Weight:: 99.79 kg BMI: 43.2 Outcomes/Goals: Pt sets, maintains & shows weight loss goal & trend during rehab, Other additional outcomes/goals Intervention/Plan: Instruct on ideal BMI & set weight loss goal w/patient, Assist pt to ID & incorporate diet changes for weight loss by S9, Refer to Structured Weight Loss program as appropriate, Encourage goal of using 250-300dcal per session for weight loss, Other additional plan/interventions 30 day Reassessments:: Progressing - Healthy Eating Habits Will attend diet classes:: Yes Outcomes/Goals:: Consume diet rich in vegs,fruits,whole grain/high fiber,fish,lean meat, Limit sat/trans fats,cholesterol & added salts & sugars, Other additional outcome/goals: Intervention/Plan:: Assess current eating habits, Other Additional plan/interventions 30-day Reassessments:: Progressing - Education Gave educational materials for:: Signs & symptoms of hypoglycemia, Signs & symptoms of hyperglycemia, Relate diabetes to coronary artery disease, Healthy eating Medical- 60-Day Assessment - Visit Date of Eval: 07/11/19 Session #:: 16 - Medication Compliance H/O mental health issues: depression, anxiety, or addiction?: No Doesn?t believe in the benefits of treatment?: No Believes medications are unnecessary or harmful?: No Has a concern about medication side effects?: No Expresses concern over the cost of medications?: No Outcomes/Goals: Verbalizes medications,desired effect & common side effects @ DC, Pt self-reports following medication regimen, Keeps card in wallet w/medications listed by DC, Other additional outcome/goals: 30-day Reassessments:: Progressing - Tobacco Use Tobacco Use: Non-smoker - Hypertension Hypertension Diagnosis:: Hypertension ICD-10 I10 [place] [employer] Hypertension Guidelines: [place] [employer] Hypertension Guidelines. Normal BP Less than 120/80. Elevated BP 120/80. Hypertension Stage 1: BP 130-139/80-89. Hypertesnion Stage 2: BP 140 or higher/90 or higher. Hypertension Crisis: BP higher than 180/120 Outcomes/Goals: Able to verbalize/achieve optimal blood pressure <130/80, Incorporates diet changes & exercise for blood pressure control by DC, Other additional outcomes/goals Interventions/plan: Instruct on optimal blood pressure, hypertension & medications, Instruct on effects of sodium, alcohol, stress, exercise &hypertension, Other additional plan/interventions 30 day Reassessments:: Progressing - Tobacco Cessation Referral Smoking Cessation Referral:: No Individual Education/Counseling:: No Education Schedule Given:: Yes Psychosocial - 60-Day Assess - VIsit Date of Eval: 07/11/19 Session #:: 16 - Target Goals Target Goals: Assess presence or absence of depression. Using a valid screening tool, maximizes coping skills. Positive support system - Psychosocial Test Tool Used:: Lucero Hidalgo QOL Cardiac, PHQ-9 Questionnaire phq-9 Severity: Severity. 1-4 Minimal Depression. 5-9 Mild Depression. 10-14 Moderate Depression. 15-19 Moderately Sever Depression. 20-27 Severe Depression. Rule: - Referral to Behavioral Health PS - Interventions: Yes Attend Stress Management Classes, No Referral to Behavioral Health if PHQ-9 score >9:, No Referral to [facility], No Referral to Physician if PHQ-9 if score is 5-9: - Outcomes/Goals: See list Psychosocial Outcomes/Goals:: ID's personal stressors & 2 strategies to manage stress by discharge, Other Additional outcome/goals: - Intervention/Plan: See List Interventions/Plan:: Assess stressors,coping strategies & signs of derpression on admission, Instruct/assist pt to develop coping & personal stress Mgt strategies, Refer to Behavioral Health if appropriate, Refer to Physician if appropriate, Instruct patient to recognize signs & symptoms of depression, Instruct patient to recog, Other additional plan/intervention - 30-day Reassessments: 30 day Reassessments:: Progressing Patient Health Questionnaire 60-Day Re-eval Assessment 1. Little interest or pleasure in doing things: Nearly every day 2. Feeling down, depressed, or hopeless: More than half the days 3. Trouble falling or staying asleep, or sleeping too much: Not at all 4. Feeling tired or having little energy: More than half the days 5. Poor appetite or overeating: Not at all 6. Feeling bad about yourself -- or that you are a failure or have let yourself or your family down: Nearly every day 7. Trouble concentrating on things, such as reading the newspaper or watching television: Not at all 8. Moving or speaking so slowly that other people could have noticed. Or the opposite - being so fidgety or restless that you have been moving around a lot more than usual: Not at all 9. Thoughts that you would be better off , or of hurting yourself in some way: Not at all How difficult have these problems made it for you to do your work, take care of things at home, or get along with other people?: Very difficult Total Score: 10 Self-Efficacy 60-Day Re-eval Assessment We would like to know how confident you are in doing certain activities. Please select your confidence level for:: Select your confidence level for the following using the scale 1-10 where 1 is not at all confident and 10 is totally confident. Your score is the average of all 6 responses. Fatigue: How confident are you that you can keep the fatigue caused by your disease from interfering with the things you want to do? Select Number: 3 Physical Discomfort or Pain: How confident are you that you can keep the physical discomfort or pain of your disease from interfering with the things you want to do? Select Number: 3 Emotional Distress: How confident are you that you can keep the emotional distress caused by your disease from interfering with the things you want to do? Select Number: 3 Other Symptoms or Health Problems: How confident are you that you can keep other symptoms or health problems from interfering with the things you want to do? Select Number: 3 Different Tasks and Activities: How confident are you that you can do the different tasks and activities needed to manage your health condition so as to reduce your need to see a doctor? Select Number: 3 Medication: How confident are you that you can do things other than just taking medication to reduce how much your illness affects your everyday life? Select Number: 3 Total Score:: 3
[2019-07-11 12:29] VITALS: BP 118/48; BMI 43.2
== END 2019-08-10 23:59 ==
LOC: CR 11:30
PROVIDERS: PCP Family Medicine; Referring Provider Internal Medicine Cardiovascular Disease; Visit Provider Internal Medicine Cardiovascular Disease
DX: I25.10 Atherosclerotic heart disease of native coronary artery without angina pectoris (principal); Z95.5 Presence of coronary angioplasty implant and graft
CPT/HCPCS: 93798

== ENCOUNTER 2019-08-13 11:30 | Outpatient (RCR) | payer MEDICARE, SELFPAY ==
[2019-07-11 12:29] VITALS: BMI 43.2
[2019-08-11 00:26] VITALS: BP 118/48; BP 120/60; BP 132/68
== END 2019-09-09 23:59 ==
LOC: CR 11:30
PROVIDERS: PCP Family Medicine; Referring Provider Internal Medicine Cardiovascular Disease; Visit Provider Internal Medicine Cardiovascular Disease
DX: I25.10 Atherosclerotic heart disease of native coronary artery without angina pectoris (principal); Z95.5 Presence of coronary angioplasty implant and graft
CPT/HCPCS: 93798

== ENCOUNTER → 2019-08-29 13:44 | Outpatient (CLI) | payer MEDICARE, SELFPAY ==
[2019-07-11 12:29] VITALS: BMI 43.2
[2019-08-29 13:06] VITALS: BMI 44.6
[2019-08-29 15:15] LABS: AST(SGOT) 32 U/L (15-37); Alanine Aminotransfer ALT/SGPT 37 U/L (13-56); Albumin, Serum 3.5 g/dL (3.2-5.0); Alkaline Phosphatase 132 U/L (45-117); Bilirubin, Direct 0.13 mg/dL (0.00-0.30); Cholesterol 173 mg/dL (200); Globulin 4.3 g/dL (2.2-4.2); High Density Lipoprotein 51 mg/dL; Protein, Total 7.8 g/dL (6.4-8.2); Triglycerides 212 mg/dL; Very Low Density Lipoprotein 42 mg/dL (5-40)
== END ==
LOC: LAB 13:46
PROVIDERS: PCP Family Medicine; Referring Provider Physician Assistant Medical; Visit Provider Physician Assistant Medical
DX: I25.10 Atherosclerotic heart disease of native coronary artery without angina pectoris (principal); I10 Essential (primary) hypertension; E78.5 Hyperlipidemia, unspecified
CPT/HCPCS: 36415; 80061; 80076

== ENCOUNTER 2019-10-28 15:16 | Emergency (ER) | payer MEDICARE, SELFPAY ==
[2019-07-11 12:29] VITALS: BMI 43.2
[2019-08-29 13:06] VITALS: BMI 44.6
[2019-10-28 15:17] VITALS: BP 149/95; PULSE 76; RESP 16; TEMP 36.1; O2SAT 97; BMI 39.0
--- NOTE | 2019-10-28 15:38 | ED.VISSUMM ---
- ER Visit Summary Date of Service: 10/28/19 Chief Complaint: Left calf injury History of Present Illness: The patient is a 59 F who injured her left calf. She states 1/2-hour ago she was sliding out of her 's truck when she cut the back of her left calf. She was able to control the bleeding at home. She is on Plavix for coronary issues. Her last tetanus is unknown. She has minimal pain at this time. They did apply antibacterial cream and bandage this area before arriving. Physical Examination: Vital signs reviewed. Left calf reveals a linear deep abrasion that measures about 10 cm on the back of the calf. Bleeding is controlled. There is no erythema. She does have some focal tenderness to the abrasion area. Test Results: None performed Emergency Department Course and Treatment: The patient's tetanus shot was updated. This is a deep abrasion. I do not feel that require suturing at this time. Patient will continue local wound care. We will clean the wound and dress it here. Treatment Plan: [] Disposition: Discharge Impression: Deep abrasion, left calf 10 cm This note was generated with [employer] dictation software. It may contain incorrect words, spelling, and punctuation that were not noted in review of the chart prior to signing ED Disposition - Plan for ED Patient: Disposition: Home or Assisted Living Instructions: ED Laceration Old Not Sutr Referrals: Dawn Rivera MD [Primary Care Provider] -
[2019-10-28] MEDS: Diphth,Pertuss(Acell),Tet Vac 0.5 ML Vial IM (16:07)
== END 2019-10-28 16:21 | disposition home or self-care (01) ==
LOC: ED 15:55
PROVIDERS: Emergency Provider Emergency Medicine; PCP Family Medicine
DX: S80.812A Abrasion, left lower leg, initial encounter (principal); W26.9XXA Contact with unspecified sharp object(s), initial encounter; Y93.9 Activity, unspecified; Y92.9 Unspecified place or not applicable; I10 Essential (primary) hypertension; I25.10 Atherosclerotic heart disease of native coronary artery without angina pectoris; Z79.82 Long term (current) use of aspirin; Z79.02 Long term (current) use of antithrombotics/antiplatelets; Z79.899 Other long term (current) drug therapy
CPT/HCPCS: 90471; 90715; 99283

== ENCOUNTER 2019-12-25 19:23 | Emergency (ER) | payer MEDICARE, SELFPAY ==
[2019-07-11 12:29] VITALS: BMI 43.2
[2019-12-25 19:23] VITALS: BP 157/98; PULSE 95; RESP 18; TEMP 37.1; O2SAT 95; BMI 43.0
[2019-12-25 20:33] VITALS: BP 138/64; PULSE 101; RESP 13; O2SAT 97
[2019-12-25 20:43] LABS: Absolute Lymphocyte Count 1.07 X10^3/uL (0.83-4.51); Absolute Neutrophil Count 6.7 X10^3/uL (2.0-7.7); Basophil# 0.01 X10^3/uL; Basophil% 0.1 % (0-1); Eosinophil# 0.03 X10^3/uL; Eosinophils% 0.4 % (0-5); Hematocrit 42.6 % (37-47); Hemoglobin 13.9 g/dL (12.0-15.0); Lymphocyte # 1.07 X10^3/ul (4.0); Lymphocyte % 12.9 % (19-41); Mean Corp Hgb Conc 32.6 g/dL (32-36); Mean Corpuscular Hgb 30.5 pg (27.0-32.0); Mean Corpuscular Volume 93.4 fL (81-99); Mean Platelet Vol. 9.9 fl (6.2-12.0); Monocyte# 0.47 X10^3/uL; Monocyte% 5.7 % (0-10); NRBC Flagged by Analyzer 0 % (0-5); Neutrophil # 6.67 X10^3/uL (2.7-7.7); Neutrophil % 80.7 % (47-70); Platelet Count 246 K/mm3 (150-450); RBC Distribution Width SD 44.5 fl (35.1-43.9); Red Blood Count 4.56 M/mm3 (4.2-5.4); White Blood Count 8.3 K/mm3 (4.4-11.0)
[2019-12-25 20:57] LABS: ALB/GLOB Ratio 0.8 RATIO (0.9-2.4); AST(SGOT) 31 U/L (15-37); Alanine Aminotransfer ALT/SGPT 35 U/L (13-56); Albumin, Serum 3.4 g/dL (3.2-5.0); Alkaline Phosphatase 124 U/L (45-117); Anion Gap 7 (5-15); BUN 11 mg/dL (7-18); BUN/Creat Ratio 12.9 RATIO (10-20); Calcium,Total 8.5 mg/dL (8.5-10.1); Chloride 102 mmol/L (98-107); Creatinine, Serum 0.86 mg/dL (0.55-1.02); EST Glomerular Filtration Rate 72 mL/min (>60); Est Glom Filt Rate - Afr Amer 87 mL/min (>60); Estimated Creatinine Clearance 49.34 ml/min; Globulin 4.4 g/dL (2.2-4.2); Glucose 132 mg/dL (74-106); Potassium 4.2 mmol/L (3.5-5.1); Protein, Total 7.8 g/dL (6.4-8.2); Sodium Level 136 mmol/L (136-145)
[2019-12-25 20:58] VITALS: BP 135/75; PULSE 97; RESP 20; TEMP 36.8; O2SAT 99
[2019-12-25] MEDS: Ondansetron 4 MG/2 ML Vial IV (20:58)
[2019-12-25 21:01] LABS: Lactic Acid 1.3 mmol/L (0.4-1.9)
--- NOTE | 2019-12-25 21:10 | RAD_ITS ---
STUDY: X-RAY CHEST REASON FOR EXAM: Female, 59 years old. cough, fever, chills, n/v since sunday evening TECHNIQUE: 1 view COMPARISON: Prior chest radiograph 02/08/2019, 01/03/[address] chest [address] exam of 07/19/2016. FINDINGS: The right lung is expanded and clear. There is a dependent infiltrate or atelectasis at the left lung base blunting the costophrenic angle. Normal size heart. Normal mediastinum and monico. Normal visualized pulmonary arteries. Mild elongation of the thoracic aorta. There are diffuse degenerative changes of the visualized thoracic spine. Normal visualized ribs, clavicles, and shoulders. There is no demonstrated abnormality of the visualized soft tissue structures of the upper abdomen. RAD/Chest 1 View (Portable) IMPRESSION: New focal area of dependent parenchymal consolidation or atelectasis at the left lung base blurring the costophrenic angle. Potential pneumonic process. No other acute findings or changes. Electronically Signed: Sunshine Blankenship MD at 21:34 EDT , Service support ,
--- NOTE | 2019-12-25 22:26 | ED.DCSUM_ITS ---
History of Present Illness Chief Complaint: Fever Informant: Patient Onset: Yesterday Context: Gradual Onset Timing: Intermittent Current Severity: Moderate Maximum Severity: Moderate Narrative: The patient is a 59-year-old female with medical history significant for coronary vascular disease status post stents, hypertension, hyperlipidemia the presents to the emergency department multiple complaints. The patient states that yesterday, she was just not feeling herself. She states that today, she began to have a scant cough, felt mildly short of breath, and then had nausea and vomiting. She is unsure she had a fever but did feel like she had chills. She denies any recent sick contacts. She denies any abdominal pain. She is not had any chest pain. She denies orthopnea or leg edema. Prior similar symptoms: No Recent Illness/Hospitalization: No Past Medical History - Allergies and Home Meds Allergies/Adverse Reactions: Allergies No Known Allergies Allergy (Verified 12/25/19 19:25) Primary Care Physician: Dawn Rivera MD [Primary Care Provider] - Prior records reviewed: Yes Past Medical History: - - Coronary vascular disease, hypertension, hyperlipidemia Surgical History: total knee arthroplasty - Left., - - Tubal ligation, left knee surgery. Coronary artery stent placement 2013 Smoking Status: Former smoker - Family History Maternal Family History: Reports: No pertinent history Paternal Family History: Reports: No pertinent history Review of Systems General: Reports: Chills, Malaise. Denies: Fever, Sweats Eyes: Denies: Visual changes - bilaterally, Diplopia ENT: Denies: Rhinorrhea, Sore throat Cardiovascular: Denies: Chest pain, Palpitations Respiratory: Reports: Cough. Denies: Dyspnea, Dyspnea on exertion Gastrointestinal: Reports: Nausea, Vomiting. Denies: Abdominal pain, Diarrhea, Melena, Hematochezia Genitourinary: Denies: Dysuria, Hematuria, Frequency Musculoskeletal: Denies: Back pain, Extremity Pain Skin: Denies: Rash, Wounds Neurological: Denies: Headache, Weakness, Numbness Physical Exam Vital Signs/Narrative: Vital Signs Temp Pulse Resp BP Pulse Ox 12/25/19 20:58 98.2 F 97 20 H 135/75 H 99 12/25/19 20:33 101 H 13 138/64 H 97 12/25/19 19:23 98.7 F 95 18 157/98 H 95 Inital Vital Signs reviewed: Yes General: Well nourished, Well developed, No Acute Distress Head: Normocephalic, Atraumatic Eyes: Perrl, EOMI ENT: Moist mucous membranes, No rhinorrhea Neck: Supple, Nontender Cardiovascular: Regular rate, Regular rhythm, No murmurs Respiratory: No distress, CTA bilaterally, Chest nontender Abdomen: Soft, Nontender, Nondistended, Normal bowel sounds Back: Nontender, Normal Inspection Extremities: Nontender, No edema Skin: Normal color, No rash Neurological: Alert, Oriented x3, Cranial nerves II-XII grossly intact, Normal Strength, Normal Sensation Psychological: Normal affect, Normal Mood Diagnostic/Tx/Re-eval Clinical Impression(s) from Imaging Studies Chest X-Ray 12/25/19 21:10 IMPRESSION: New focal area of dependent parenchymal consolidation or atelectasis at the left lung base blurring the costophrenic angle. Potential pneumonic process. No other acute findings or changes. Electronically Signed: Sunshine Blankenship MD at 21:34 EDT , Service support , Abnormal Lab Results 12/25/19 12/25/19 12/25/19 20:29 20:29 20:29 WBC 8.3 RBC 4.56 Hgb 13.9 Hct 42.6 MCV 93.4 MCH 30.5 MCHC 32.6 RDW Std Deviation 44.5 H RDW Coeff of Shaylee 13.0 Plt Count 246 MPV 9.9 Immature Gran % (Auto) 0.200 Neut % (Auto) 80.7 H Lymph % (Auto) 12.9 L Whiteside % (Auto) 5.7 Eos % (Auto) 0.4 Baso % (Auto) 0.1 Absolute Neuts (auto) 6.7 Absolute Lymphs (auto) 1.07 Nucleated RBC % 0 Sodium 136 Potassium 4.2 Chloride 102 Carbon Dioxide 27.0 Anion Gap 7 BUN 11 Creatinine 0.86 Estim Creat Clear Calc 49.34 Est GFR (MDRD) Af Amer 87 Est GFR (MDRD) Non-Af 72 BUN/Creatinine Ratio 12.9 Glucose 132 H Lactic Acid 1.3 Calcium 8.5 Total Bilirubin 0.60 AST 31 ALT 35 Alkaline Phosphatase 124 H Total Protein 7.8 Albumin 3.4 Globulin 4.4 H Albumin/Globulin Ratio 0.8 L - Medical Decision Making The patient presents with mild cough along with nausea and vomiting. She is afebrile here. She is not hypoxic or tachycardic. Chest x-ray was obtained. There was questionable atelectasis versus pneumonia. However, lab work was unremarkable. She does not have a leukocytosis. She has not had a productive sputum. Cotesting was obtained and is currently pending. At this point, I do feel that her symptoms are likely viral. However, she does have significant smoking history with questionable change on x-ray. I am going to cover her with doxycycline. I will also use Zofran for nausea control. Again, based on her benign work-up and lack of hypoxia I do feel that she is safe for outpatient discharge. She is comfortable with this plan of care. Impression 1. Nausea vomiting 2. Bronchitis ED Disposition - Plan for ED Patient: Instructions: ED Upper Resp Infec Abx Tx Prescriptions: Doxycycline 100 mg PO BID #20 cap Prescription Printed Ondansetron [Zofran Odt] 4 mg PO Q8H PRN PRN #10 tab PRN Reason: Nausea Prescription Printed Referrals: Dawn Rivera MD [Primary Care Provider] -
[2019-12-25 23:25] VITALS: BP 147/75; PULSE 101; RESP 22; TEMP 36.8; O2SAT 96
[2019-12-26 00:13] VITALS: BP 136/78; PULSE 103; RESP 21; O2SAT 96
== END 2019-12-26 00:14 | disposition home or self-care (01) ==
LOC: ED 20:39
PROVIDERS: Emergency Provider Emergency Medicine; PCP Family Medicine
DX: U07.1 COVID-19 (principal); R11.2 Nausea with vomiting, unspecified; J40 Bronchitis, not specified as acute or chronic; E66.9 Obesity, unspecified; I10 Essential (primary) hypertension; E78.5 Hyperlipidemia, unspecified; I25.10 Atherosclerotic heart disease of native coronary artery without angina pectoris; Z95.5 Presence of coronary angioplasty implant and graft; Z79.82 Long term (current) use of aspirin; Z79.899 Other long term (current) drug therapy; Z87.891 Personal history of nicotine dependence
CPT/HCPCS: 71045; 80053; 83605; 85025; 87040; 87633; 87635; 96374; 99281; 99285; J2405; U0003

== ENCOUNTER 2020-02-23 18:24 | Emergency (ER) | payer MEDICARE, SELFPAY ==
[2019-07-11 12:29] VITALS: BMI 43.2
[2020-02-23 18:25] VITALS: BP 193/97; PULSE 121; RESP 28; TEMP 36.7; O2SAT 99; BMI 43.3
[2020-02-23 18:27] VITALS: BP 193/97; PULSE 121; RESP 28; TEMP 36.7; O2SAT 99
--- NOTE | 2020-02-23 18:55 | ED.DCSUM_ITS ---
History of Present Illness Chief Complaint: Complaint Informant: Patient Narrative: 59-year-old female presenting with left leg pain and dysuria. Patient states she was at home recovering from Covid?19 last month. She noticed that she had bruising on the posterior aspect of her left ankle. This has progressed and now she has some more pain there. She is concerned she has a DVT. She is on Plavix and aspirin currently. She is not having chest pain, palpitations, shortness of breath. Patient does have COPD at baseline. - Past Medical History (1) Atherosclerosis of coronary artery of [place] heart without angina pectoris Status: Chronic (2) Chronic diastolic heart failure Status: Chronic (3) Essential (primary) hypertension Status: Chronic (4) Hyperlipidemia Status: Chronic (5) Non-ST elevated myocardial infarction (non-STEMI) Status: Chronic Past Medical History - Allergies and Home Meds Allergies/Adverse Reactions: Allergies No Known Allergies Allergy (Verified 02/23/20 18:27) Primary Care Physician: Dawn Rivera MD [Primary Care Provider] - Prior records reviewed: Yes Surgical History: noncontributory, total knee arthroplasty - Left., - - Tubal ligation, left knee surgery. Coronary artery stent placement 2013 Lives: Alone, Spouse/ Significant Other Smoking Status: Former smoker Alcohol: None Drugs: None - Family History Maternal Family History: Reports: No pertinent history Paternal Family History: Reports: No pertinent history Review of Systems General: Reports: Chills Eyes: Denies: Visual changes - left, Visual changes - right ENT: Denies: Bilateral ear pain, Left ear pain Cardiovascular: Denies: Chest pain, Palpitations Respiratory: Denies: Dyspnea, Cough Gastrointestinal: Denies: Abdominal pain, Nausea Genitourinary: Denies: Dysuria, Hematuria Musculoskeletal: Reports: Swelling - Left calf, Extremity Pain - Left calf Skin: Reports: - - Bruising of the left calf. Denies: Rash, Abscess Neurological: Denies: Headache, Weakness, Parasthesia Physical Exam Vital Signs/Narrative: Vital Signs Temp Pulse Resp BP Pulse Ox 02/23/20 18:27 98.1 F 121 H 28 H 193/97 H 99 02/23/20 18:25 98.1 F 121 H 28 H 193/97 H 99 Inital Vital Signs reviewed: Yes General: Well nourished, No Acute Distress Head: Normocephalic, Atraumatic Eyes: Perrl, EOMI ENT: Moist mucous membranes, No rhinorrhea Cardiovascular: Regular rate, Tachycardia Respiratory: No distress, CTA bilaterally. Negative for: Wheezing, Diminished Extremities: Calf Tenderness - Left calf. Negative for: Edema Skin: - - Bruising to the left posterior calf.. Negative for: No rash, Cyanosis Neurological: Alert, Oriented x3 Psychological: Normal affect, Normal Mood Diagnostic/Tx/Re-eval Clinical Impression(s) from Imaging Studies Venous Duplex 02/23/20 19:23 IMPRESSION: Normal venous Doppler ultrasound of the lower extremity. Electronically Signed: Zeb Pinto MD at 20:29 EST , Service support , Laboratory Data 02/23/20 18:45 Urine Color Yellow Urine Clarity Sl. Cloudy Urine pH 6.0 Ur Specific [place] 1.005 Urine Protein Negative Urine Glucose (UA) Normal Urine Ketones Negative Urine Occult Blood 10 H Urine Nitrite Positive H Urine Bilirubin Negative Urine Urobilinogen Normal Ur Leukocyte Esterase 500 H Urine RBC 0-5 SEEN Urine WBC 10-25 SEEN Ur Squamous Epith Cells 0-5 SEEN Urine Bacteria RARE Urine Mucus 0 SEEN - Medical Decision Making 59-year-old female presenting with left leg pain and bruising as well as UTI symptoms. Urinalysis was consistent with UTI. DVT study shows no DVT. Patient's urine was sent for culture and she was started on Keflex with first dose in the ED. She is given a prescription for Keflex at home. She can return precautions. Patient stable for discharge at this time. Impression: 1. UTI 2. Left leg bruising ED Disposition - Plan for ED Patient: Disposition: Home or Assisted Living Instructions: ED Bladder Infection, Female (Adult), ED Contusion, Lower Extremity (Child) Prescriptions: Cephalexin [Keflex] 500 mg PO Q12 #14 cap Transmission Status: Received by [id number] Referrals: Dawn Rivera MD [Primary Care Provider] -
[2020-02-23 19:19] LABS: Mucous, Urine 0 SEEN /hpf (<or=2+)
--- NOTE | 2020-02-23 19:23 | US_ITS ---
STUDY: VENOUS DOPPLER ULTRASOUND - LEFT LOWER EXTREMITY REASON FOR EXAM: Female, 59 years old. LT LOWER POSTERIOR CALF AREA OF REDNESS/SWELLING TECHNIQUE: Ultrasound evaluation of the deep vein system to include mccauley-scale imaging and compression was performed. Mccauley-scale imaging and Doppler sonographic evaluation, including duplex spectral analysis and qualitative color flow sonography, was performed. COMPARISON: None. FINDINGS: Common Femoral Vein: Normal compression, spontaneity and augmentation. Normal color Doppler. Common Femoral Vein/Greater Saphenous Junction: Normal compression, spontaneity and augmentation. Normal color Doppler. Deep Femoral Vein: Normal compression, spontaneity and augmentation. Normal color Doppler. Femoral Proximal: Normal compression, spontaneity and augmentation. Normal color Doppler. Femoral Middle: Normal compression, spontaneity and augmentation. Normal color Doppler. Femoral Distal: Normal compression, spontaneity and augmentation. Normal color Doppler. Popliteal Vein: Normal compression, spontaneity and augmentation. Normal color Doppler. Posterior Tibial Vein: Normal compression, spontaneity and augmentation. Normal color Doppler. Peroneal Vein: Normal compression, spontaneity and augmentation. Normal color Doppler. US/Venous Duplex Imag/Limited/Uni IMPRESSION: Normal venous Doppler ultrasound of the lower extremity. Electronically Signed: Zeb Pinto MD at 20:29 EST , Service support ,
[2020-02-23 19:27] VITALS: BP 109/91; PULSE 118; RESP 25; TEMP 36.8; O2SAT 98
[2020-02-23 19:37] LABS: Color, Urine Yellow (Yellow); Glucose, Dipstick Normal (Normal); Ketone-Dipstick Negative (Negative); Leukocyte Esterase-Dipstick 500 /ul (Negative); Nitrite-Dipstick Positive (Negative); Occult Blood-Urine 10 /ul (Negative); Protein-Dipstick Negative (Negative); Specific Gravity, Urine 1.005 (1.002-1.030); Urine Bilirubin Dipstick Negative (Negative); Urine Clarity Sl. Cloudy (Clear); Urine Urobilinogen Normal (Normal)
[2020-02-23 19:51] LABS: Bacteria RARE /hpf (None Seen); Red Blood Cells-Urine 0-5 SEEN /hpf (0-5); Squamous Epithelial Cells - UA 0-5 SEEN /hpf (5-10); White Blood Cells 10-25 SEEN /hpf (0-5)
[2020-02-23 20:14] VITALS: BP 112/63; PULSE 113; RESP 26; TEMP 36.7; O2SAT 99
[2020-02-23 20:25] VITALS: BP 127/68; PULSE 111; RESP 28; O2SAT 98
[2020-02-23] MEDS: Cephalexin 250 MG Capsule 500 MG PO (20:56)
[2020-02-23 20:57] VITALS: BP 117/71; PULSE 110; RESP 18; O2SAT 99
== END 2020-02-23 20:58 | disposition home or self-care (01) ==
PROVIDERS: Emergency Provider Student in an Organized Health Care Education/Training Program; PCP Family Medicine
DX: N39.0 Urinary tract infection, site not specified (principal); S80.12XA Contusion of left lower leg, initial encounter; I25.10 Atherosclerotic heart disease of native coronary artery without angina pectoris; I11.0 Hypertensive heart disease with heart failure; I50.32 Chronic diastolic (congestive) heart failure; E78.5 Hyperlipidemia, unspecified; I25.2 Old myocardial infarction; J44.9 Chronic obstructive pulmonary disease, unspecified; Z95.5 Presence of coronary angioplasty implant and graft; Z79.02 Long term (current) use of antithrombotics/antiplatelets; Z79.82 Long term (current) use of aspirin; Z79.899 Other long term (current) drug therapy; Z87.891 Personal history of nicotine dependence; M79.605 Pain in left leg
CPT/HCPCS: 81001; 87077; 87086; 87088; 87186; 93971; 99284

== ENCOUNTER → 2020-03-22 12:25 | Outpatient (CLI) | payer MEDICARE, SELFPAY ==
[2019-07-11 12:29] VITALS: BMI 43.2
[2020-03-11 09:51] VITALS: BMI 42.6
--- NOTE | 2020-03-22 12:27 | ECHOD_ITS ---
Reason For Study: Dyspnea/SOB Procedure This was a 2D Doppler, Color Flow transthoracic echocardiogram. Myocardial strain analysis was performed in this exam to aid in the assessment of cardiac function. Contrast injection was performed. Exam performed in department. Left Ventricle Normal LV size. Left ventricular systolic function is normal. The estimated ejection fraction is 55 %. No regional wall motion abnormalities noted. Right Ventricle Normal RV size. Normal systolic function. Atria Normal left atrium. Normal right atrium. Mitral Valve Normal mitral valve. Mild (1+) eccentric mitral valve insufficiency. Tricuspid Valve Normal tricuspid valve. Mild (1+) tricuspid valve insufficiency. Pulmonary artery systolic pressure is 38 mmHg. Aortic Valve The aortic valve is not well visualized. Mild (1+) eccentric aortic valve insufficiency. Pulmonic Valve The pulmonic valve is not well visualized. Pericardium/Pleural No pericardial effusion. Medication Diluted definity 3ml given slow IV push to enhance endocardial definition. MMode/2D Measurements & Calculations LVIDd: 4.3 cm IVSd: 1.2 cm Ao root diam: 2.8 cm LVIDs: 2.8 cm LVPWd: 1.1 cm RVDd: 3.5 cm FS: 34.2 % LAV(MOD-bp): 40.4 ml LVAd ap4: 19.6 cm2 SV(MOD-sp4): 30.3 ml LAV(MOD-bp) Indexed: 21.0 ml/m2 EDV(MOD-sp4): 49.8 ml LAV(MOD-sp2): 43.9 ml EDV(sp4-el): 52.3 ml LAV(MOD-sp4): 32.8 ml LVAs ap4: 10.9 cm2 ESV(MOD-sp4): 19.5 ml ESV(sp4-el): 19.8 ml EF(MOD-sp4): 60.8 % EF(sp4-el): 62.1 % SV(sp4-el): 32.5 ml LA A4 area: 14.4 cm2 LA dimension(2D): 3.4 cm RA A4 area: 15.2 cm2 Doppler Measurements & Calculations MV E max gerson: 92.8 cm/sec Lat Peak E' Gerson: 5.4 cm/sec Med Peak E' Gerson: 4.5 cm/sec MV A max gerson: 101.9 cm/sec E/E' lat: 17.1 E/E' med: 20.5 MV E/A: 0.91 Ao V2 max: 158.5 cm/sec AI max gerson: 363.8 cm/sec LV V1 max: 103.0 cm/sec Ao max P.1 mmHg AI max P.0 mmHg LV V1 max P.2 mmHg Ao V2 mean: 113.0 cm/sec Ao mean P.5 mmHg AI dec slope: 285.1 cm/sec2 Ao V2 VTI: 33.7 cm AI P1/2t: 373.8 msec PA V2 max: 88.6 cm/sec TR max gerson: 295.2 cm/sec TR max P.9 mmHg Interpretation Summary Normal LV size. Left ventricular systolic function is normal. The estimated ejection fraction is 55 %. Pulmonary artery systolic pressure is 38 mmHg. Mild (1+) eccentric aortic valve insufficiency. The study was technically difficult. Contrast injection was performed. Ordering Physician: Seun Blair Referring Physician: Dawn Isaacs Performed By: Karla Sevilla, SHAVONNE, RVT
== END ==
PROVIDERS: PCP Family Medicine; Referring Provider Internal Medicine Cardiovascular Disease; Visit Provider Internal Medicine Cardiovascular Disease
DX: R06.02 Shortness of breath (principal); R06.00 Dyspnea, unspecified
CPT/HCPCS: 93306; Q9957; A4216; C8929

== ENCOUNTER 2021-12-25 13:30 | Emergency (ER) | payer MEDICARE, SELFPAY ==
[2019-07-11 12:29] VITALS: BMI 43.2
[2021-12-25 13:30] VITALS: BP 182/87; PULSE 78; RESP 16; TEMP 36.6; O2SAT 98; BMI 50.5
--- NOTE | 2021-12-25 14:03 | EDS_ITS ---
HPI History of Present Illness Chief Complaint: General Illness Informant: patient Onset/Context/Timing Onset: Days (2) Narrative Narrative: Patient has had nasal congestion minor cough, some rhinorrhea, and malaise for the past 2 days. No known fevers or chills. No dyspnea. She has a history of COPD and states it is not been worse than usual during this illness. She had a sore throat but it is improved. States she feels like she may have a sinus infection because she is very congested; she does have a headache, no facial pain. [facility] Medical History (Updated 12/25/21 @ 15:[address] Chaim La MD) Atherosclerosis of coronary artery of [place] heart without angina pectoris Chronic diastolic heart failure COVID-19 virus detected (12/25/19) Depression Essential (primary) hypertension GERD (gastroesophageal reflux disease) Hyperlipidemia Hypothyroidism Nicotine dependence in remission Non-ST elevated myocardial infarction (non-STEMI) (02/08/19) Obesity Obstructive sleep apnea Osteoarthritis Other peripheral vascular disease Pulmonary hypertension Stage 2 moderate COPD by GOLD classification Supraventricular tachycardia Home Medications citalopram 20 mg tablet 20 mg PO QHS ANTIDEPRESSANT 07/11/16 [History Last Taken 02/07/19] aspirin 81 mg tablet,delayed release 81 mg PO DAILY 06/11/17 [History Last Taken 02/08/19] omeprazole 20 mg capsule,delayed release 20 mg PO DAILY REFLUX 06/11/17 [History Last Taken 02/07/19] cyclobenzaprine 10 mg tablet 10 mg PO QHS 02/08/19 [History Last Taken 02/07/19] ferrous sulfate 325 mg (65 mg iron) tablet 325 mg PO DAILY 02/08/19 [History Last Taken 02/07/19] levothyroxine 112 mcg tablet 112 mcg PO DAILY 03/01/20 [History Last Taken Unknown] furosemide 20 mg tablet 20 mg PO DAILY 03/11/20 [History Last Taken Unknown] gabapentin 300 mg capsule 600 mg PO QHS 03/11/20 [History Last Taken Unknown] clopidogrel 75 mg tablet See Rx Instructions .Route .COMPLEX #90 tabs 08/30/20 [Rx Last Taken Unknown] metoprolol tartrate 50 mg tablet 50 mg PO BID 09/08/20 [History Last Taken Unknown] atorvastatin 20 mg tablet 20 mg PO QHS #90 tabs 10/31/21 [Rx Last Taken Unknown] nirmatrelvir 300 mg (150 mg x2)-ritonavir 100 mg tablet,dose pack(EUA) (Paxlovid) See Rx Instructions PO .COMPLEX #30 tabs 12/25/21 [Rx Last Taken Unknown] Allergy/AdvReac Type Severity Reaction Status Date / Time No Known Allergies Allergy Verified 12/25/21 13:30 Surgical History History of coronary artery stent placement (02/10/19) History of left knee replacement (04/17/17) History of tubal ligation Social History Smoking Status: Former smoker pack-years: 37 Tobacco: How many years used: 37 second hand exposure: No alcohol intake: never substance use type: does not use caffeine: No ROS ROS ED Constitutional Constitutional ED: Denies chills or fever(s) ENT ENT ED: Reports ear pain right, nasal congestion and sore throat Cardiovascular Cardiovascular: Denies chest pain or palpitations Respiratory/Chest Respiratory/Chest: Reports cough; Denies dyspnea or sputum Gastrointestinal Gastrointestinal: Denies abdominal pain, diarrhea, nausea or vomiting Genitourinary Genitourinary ED: Denies dysuria or hematuria Musculoskeletal Musculoskeletal: Denies myalgias or neck pain Integumentary Denies abscess or rash Neurologic Neurologic: Reports headache(s); Denies paresthesias or weakness Psychiatric Psychiatric: Denies depression or suicidal thoughts Endocrine Endocrinology: Denies polydipsia or polyuria EXAM Physical Exam Const Vital Signs: 12/25/21 13:30 12/25/21 13:39 12/25/21 14:30 Temperature 97.8 F Temperature Source Temporal Pulse Rate 78 82 Respiratory Rate 16 15 Respiratory Effort Normal Respiratory Pattern Normal Blood Pressure 182/87 H 175/90 H Blood Pressure Mean 118 118 Pulse Ox 98 97 Oxygen Delivery Method Room Air Room Air Positive well nourished, well developed and obese General Appearance ED: well developed and NAD Nutritional Appearance: obese HEENT Reports moist mucous membranes HEENT Narrative: No sinus tenderness. TMs normal bilaterally. EAC normal bilaterally. No purulent nasal discharge or significant asymmetric turbinate edema normocephalic and atraumatic Throat: Negative for posterior oropharynx abnormal Eyes PERRL and EOMs intact bilaterally Neck no lymphadenopathy, supple and no meningeal signs Resp normal respiratory effort and clear to auscultation bilaterally Effort and Inspection: able to speak in complete sentences Cardio no murmurs Rate: regular rate Rhythm: regular rhythm Neuro oriented x3, CN's II-XII intact bilaterally and no sensory deficits noted Sensorium / Orientation: alert Motor Exam: strength 5/5 throughout Skin Lesions: no lesions Rashes: no rashes MDM MDM MDM Narrative Medical decision making narrative: COVID swab is positive. She meets criteria for Paxlovid, we discussed the pros and cons and she is comfortable with taking this medication. She will need to adjust some of her medications which was given to her on paperwork, namely I would advise discontinuing the atorvastatin temporarily, in addition to the cyclobenzaprine as long as she does not need it, and continuing the clopidogrel, her last stent was over a year ago. Given Harmeet-Synephrine for her nasal congestion which helped, she does not have any sinus tenderness to suggest that she needs antibiotics in addition to this. Discharge Plan Triage Chief Complaint: General Illness ED Provider: Chaim La Dx/Rx/DC Orders Clinical Impression: COVID-19 Instructions: Coronavirus Disease 2019 (COVID-19): Caring for Yourself or Others Prescriptions: New Paxlovid (EUA) 300 mg (150 mg x 2)-100 mg tablets,dose pack See Rx Instructions .ROUTE .COMPLEX Qty: 30 0RF Rx Instructions: take TWO 150 mg tablets of nirmatrelvir with ONE 100 mg tablet of ritonavir twice daily for 5 days Continued gabapentin 300 mg capsule 600 mg PO QHS Label Comments: TAKE 2 CAPSULES BY MOUTH ONCE DAILY furosemide 20 mg tablet 20 mg PO DAILY levothyroxine 112 mcg tablet 112 mcg PO DAILY metoprolol tartrate 50 mg tablet 50 mg PO BID Label Comments: TAKE 1 TABLET BY MOUTH TWICE A DAY citalopram 20 MG tablet 20 mg PO QHS Label Comments: DEPRESSION omeprazole 20 MG capsule,delayed release(DR/EC) 20 mg PO DAILY aspirin 81 MG tablet,delayed release (DR/EC) 81 mg PO DAILY ferrous sulfate 325 MG tablet 325 mg PO DAILY clopidogrel 75 mg tablet See Rx Instructions .ROUTE .COMPLEX Qty: 90 3RF Dose Instruction: TAKE 1 TABLET BY MOUTH DAILY Rx Instructions: TAKE 1 TABLET BY MOUTH DAILY Held cyclobenzaprine 10 MG tablet 10 mg PO QHS Hold Instructions: Resume on 01/03/22. if able to not take it; if you really need this medication, realize it could make you more sleepy than usual while on the Paxlovid atorvastatin 20 mg tablet 20 mg PO QHS Qty: 90 3RF Hold Instructions: Resume on 01/03/22. Primary Care Provider: Dawn Rivera Referrals: Dawn Rivera MD [Primary Care Provider] - As Needed Activity Restrictions/Additional Instructions: Try to get a home portable pulse oximeter and closely watch your oxygen levels periodically. If you stay below 90% for more than a minute or so, and/or you are feeling like your breathing is getting worse, return to the emergency department for further evaluation. Currently, CDC recommendations state that you should stay home through day 5 of symptoms, then as long as symptoms are improving, if you need to go to work or somewhere else you may for days 6-10 as long as you are wearing a mask the entire time. If you are feeling better after day 10 you may resume life is normal. Disposition Disposition: Home, Self Care
[2021-12-25] MEDS: Phenylephrine 0.25% 15 ML NASAL.SRY 2 SPRAY NASAL (14:26)
[2021-12-25 14:30] VITALS: BP 175/90; PULSE 82; RESP 15; O2SAT 97
[2021-12-25] MEDS: Acetaminophen 500 MG Tablet 1000 MG PO (15:47)
[2021-12-25 15:52] VITALS: O2SAT 96
== END 2021-12-25 15:53 | disposition home or self-care (01) ==
PROVIDERS: Emergency Provider Emergency Medicine; PCP Family Medicine; Visit Provider Emergency Medicine
DX: U07.1 COVID-19 (principal); J44.9 Chronic obstructive pulmonary disease, unspecified; I10 Essential (primary) hypertension; R51.9 Headache, unspecified; I25.10 Atherosclerotic heart disease of native coronary artery without angina pectoris; J02.9 Acute pharyngitis, unspecified; E78.5 Hyperlipidemia, unspecified; Z87.891 Personal history of nicotine dependence
CPT/HCPCS: 87428; 99282

== ENCOUNTER → 2022-03-02 | Outpatient (CLI) | payer MEDICARE, SELFPAY ==
[2022-02-23 11:24] VITALS: BMI 43.2
--- NOTE | 2022-03-02 10:12 | CT_ITS ---
STUDY: CT SCAN WRIST LEFT REASON FOR EXAM: Female, 61 years old. History of left wrist fracture. RADIATION DOSAGE (If Supplied By Facility): CTDIvol = ( 24.58 ) mGy, DLP = ( 351.64 ) mGycm. Individualized dose optimization techniques were used for this CT.? TECHNIQUE: Multiple axial tomographic images were obtained of the wrist joint without intravenous contrast demonstration. Sagittal and coronal reconstruction were obtained as well. COMPARISON: Comparison is made with the radiographs done earlier in the day. FINDINGS: There is evidence of a comminuted nondisplaced transverse fracture of the distal radial metaphysis with extension to the articular surface as well as the radial styloid. There is also evidence of a nondisplaced fracture involving the distal portion of the ulna extending into the ulnar styloid. The carpal bones are unremarkable. Soft tissue swelling. CT/Extremity Upper without Contra IMPRESSION: Nondisplaced comminuted fractures of the distal radial metaphysis with extension to the articular surface and radial styloid. Nondisplaced fracture of the distal ulna involving the styloid as well. Soft tissue swelling. Electronically Signed: Dom Benavides MD at 10:49 EST ,
== END | disposition home or self-care (01) ==
LOC: CT 10:10
PROVIDERS: PCP Family Medicine; Referring Provider Orthopaedic Surgery Sports Medicine; Visit Provider Orthopaedic Surgery Sports Medicine
DX: S52.501A Unspecified fracture of the lower end of right radius, initial encounter for closed fracture (principal); S52.615A Nondisplaced fracture of left ulna styloid process, initial encounter for closed fracture
CPT/HCPCS: 73200

== ENCOUNTER → 2023-05-17 | Outpatient (CLI) | payer MEDICARE, SELFPAY ==
[2022-03-31 10:38] VITALS: BMI 43.2
[2023-05-17 18:19] LABS: T4 Total, Thyroxin 10.8 ug/dL (4.8-13.9); Thyroid Stim Hormone (TSH) 2.28 uIU/mL (0.358-3.74)
--- OUTSIDE RECORDS SUMMARY | 2023-05-17 19:16 | XMS RPT_ITS | CCD ---
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 03/13/2023 [facility] DATE CREATED AUTHOR AUTHOR'S ORGANIZ ATION 05/16/2023 [facility] ([place]) Patient Care team informatio n (unrecognized section and content) Care Team Personnel Name: Randy Vera Nurse Position: Bed Management Member Role: Other Name: DEVI BENJAMIN Member Role: Primary Care Physician Address: Address: [address] [place] [id number]- Care Team Related Persons Name: LUIS WALSH Care Team Personnel Name: Randy Vera Nurse Position: Bed Management Member Role: Other Name: DEVI BENJAMIN Member Role: Primary Care Physician Address: Address: [address] [place] [id number]- Care Team Related Persons Name: LUIS WALSH Care Team Personnel Name: Randy Vera Nurse Position: Bed Management Member Role: Other Name: FREDDY CHINO MD Member Role: Primary Care Physician Address: Address: [address] [place] [address] [place] [address]- Care Team Related Persons Name: LUIS WALSH Care Team Personnel Name: Randy Vera Nurse Position: Bed Management Member Role: Other Name: DEVI BENJAMIN Member Role: Primary Care Physician Address: Address: [address] [place] [id number]- Care Team Related Persons Name: LUIS WALSH Care Team Personnel Name: Randy Vera Nurse Position: Bed Management Member Role: Other Name: DEVI BENJAMIN Member Role: Primary Care Physician Address: Address: [address] [place] [id number]- Care Team Related Persons Name: LUIS WALSH FOR RECORDS PERTAINING TO PATIENTS WHO ARE OR HAVE BEEN ENROLLED IN A CHEMICAL DEPENDENCY/SUBSTANCEABUSE PROGRAM, SOME INFORMATION MAY BE OMITTED. This clinical summary was aggregated from multiple sources. Caution should be exercised in using it in the provision of clinical care. This summary normalizes information from multiple sources, and as a consequence, information in this document may materially change the coding, format and clinical context of patient data. In addition, data may be omitted in some cases. CLINICAL DECISIONS SHOULD BE BASED ON THE PRIMARY CLINICAL RECORDS. [employer] provides no warranty or guarantee of the accuracy or completeness of information in this document.
== END | disposition home or self-care (01) ==
LOC: BFHLAB 14:21
PROVIDERS: PCP Family Medicine; Visit Provider Family Medicine
DX: E03.9 Hypothyroidism, unspecified (principal)
CPT/HCPCS: 36415; 84436; 84443

== ENCOUNTER 2023-05-21 15:33 | Outpatient (RCR) | payer MEDICARE, SELFPAY ==
[2022-03-31 10:38] VITALS: BMI 43.2
== END 2023-06-10 23:59 ==
LOC: NS 15:33
PROVIDERS: PCP Family Medicine; Referring Provider Family Medicine; Visit Provider Family Medicine
DX: Z71.3 Dietary counseling and surveillance (principal); E11.9 Type 2 diabetes mellitus without complications
CPT/HCPCS: 97802

== ENCOUNTER 2023-06-28 10:59 | Emergency (ER) | payer MEDICARE, SELFPAY ==
[2022-03-31 10:38] VITALS: BMI 43.2
[2023-06-28 11:00] VITALS: BP 140/69; PULSE 88; RESP 16; TEMP 36.6; O2SAT 94; BMI 41.3
[2023-06-28 11:16] VITALS: BP 141/69; PULSE 84; RESP 16; O2SAT 94
--- NOTE | 2023-06-28 11:26 | CT_ITS ---
STUDY: CT ABDOMEN AND PELVIS WITHOUT CONTRAST REASON FOR EXAM: Female, 62 years old. Fall. Recent back surgery. RADIATION DOSAGE (If Supplied By Facility): CTDIvol = ( 21.63 ) mGy, DLP = ( 1080.82 ) mGycm TECHNIQUE: Transaxial images were obtained from the dome of the diaphragm to the symphysis pubis without oral contrast, and without intravenous contrast. Sagittal and coronal images were reconstructed. Individualized dose optimization techniques were used for this CT. COMPARISON: None. FINDINGS: The visualized lung bases are unremarkable. Coronary artery calcification. Normal liver. Questionable tiny gallstones along the dependent portion of the gallbladder lumen. Normal spleen. There is diffuse atrophy of the pancreas. Normal bilateral adrenal glands. Normal right kidney. Normal left kidney. Normal visualized stomach. Normal small intestine. Normal colon. The appendix is visualized and appears normal. There is scattered atherosclerotic calcification of the abdominal aorta, without a demonstrated aneurysm. Normal inferior vena cava. Normal retroperitoneum. Normal urinary bladder. There is a small umbilical hernia containing fat. The patient is status post interpedicular screw and elaina fixation at the T11 through the L3 vertebra. There is evidence of almost complete collapse of the L1 vertebrae. CT/Abdomen/Pelvis without Cont IMPRESSION: Questionable tiny gallstones along the dependent portion of the gallbladder lumen. Status post interpedicular screw and elaina fixation of the lower thoracic and lumbar spines as described. Compression fracture of the L1 vertebrae with mild posterior retropulsion of the fracture fragment. Pancreatic atrophy. Electronically Signed: Dom Benavides MD at 12:57 EDT ,
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
[2023-06-28 13:42] VITALS: BP 126/78; PULSE 79; RESP 14; O2SAT 98
[2023-06-28 13:58] VITALS: BP 129/88; PULSE 72; RESP 16; TEMP 36.4; O2SAT 97
[2023-06-28 14:00] VITALS: O2SAT 97
== END 2023-06-28 14:03 | disposition home or self-care (01) ==
PROVIDERS: Emergency Provider Emergency Medicine; PCP Family Medicine; Visit Provider Emergency Medicine
DX: M54.9 Dorsalgia, unspecified (principal); I11.0 Hypertensive heart disease with heart failure; I50.9 Heart failure, unspecified; J44.9 Chronic obstructive pulmonary disease, unspecified; E11.9 Type 2 diabetes mellitus without complications; Z79.4 Long term (current) use of insulin; I25.10 Atherosclerotic heart disease of native coronary artery without angina pectoris; E78.5 Hyperlipidemia, unspecified; Z87.891 Personal history of nicotine dependence; I25.2 Old myocardial infarction; W19.XXXA Unspecified fall, initial encounter; F32.A Depression, unspecified; Z79.899 Other long term (current) drug therapy; Z79.82 Long term (current) use of aspirin; K21.9 Gastro-esophageal reflux disease without esophagitis; Z96.652 Presence of left artificial knee joint; Z95.5 Presence of coronary angioplasty implant and graft; Z98.51 Tubal ligation status
CPT/HCPCS: 74176; 99283

== ENCOUNTER → 2023-08-16 | Outpatient (CLI) | payer MEDICARE, SELFPAY ==
[2022-03-31 10:38] VITALS: BMI 43.2
[2023-08-16 18:12] LABS: Absolute Lymphocyte Count 1.98 X10^3/uL (0.83-4.51); Absolute Neutrophil Count 5.3 X10^3/uL (2.0-7.7); Basophil# 0.01 X10^3/uL; Basophil% 0.1 % (0-1); Eosinophil# 0.12 X10^3/uL; Eosinophils% 1.5 % (0-5); Hematocrit 38.7 % (37-47); Hemoglobin 12.2 g/dL (12.0-15.0); Lymphocyte # 1.98 X10^3/ul (0.83-4.51); Lymphocyte % 25.3 % (19-41); Mean Corp Hgb Conc 31.5 g/dL (32-36); Mean Corpuscular Hgb 28.6 pg (27.0-32.0); Mean Corpuscular Volume 90.8 fL (81-99); Mean Platelet Vol. 11.1 fl (6.2-12.0); Monocyte# 0.43 X10^3/uL; Monocyte% 5.5 % (0-10); NRBC Flagged by Analyzer 0 % (0-5); Neutrophil # 5.26 X10^3/uL (2.7-7.7); Neutrophil % 67.3 % (47-70); Platelet Count 310 K/mm3 (150-450); RBC Distribution Width CV 13.3 % (11.6-14.6); RBC Distribution Width SD 43.9 fl (35.1-43.9); Red Blood Count 4.26 M/mm3 (4.2-5.4); White Blood Count 7.8 K/mm3 (4.4-11.0)
[2023-08-16 18:57] LABS: ALB/GLOB Ratio 0.8 RATIO (0.9-2.4); AST(SGOT) 19 U/L (15-37); Alanine Aminotransfer ALT/SGPT 25 U/L (13-56); Albumin, Serum 3.3 g/dL (3.2-5.0); Alkaline Phosphatase 143 U/L (45-117); Anion Gap 10 (5-15); BUN 13 mg/dL (7-18); BUN/Creat Ratio 14.1 RATIO (10-20); Calcium,Total 9.3 mg/dL (8.5-10.1); Chloride 105 mmol/L (98-107); Cholesterol 170 mg/dL (200); Creatinine, Serum 0.92 mg/dL (0.55-1.02); EST Glomerular Filtration Rate 65 mL/min (>60); Est Glom Filt Rate - Afr Amer 79 mL/min (>60); Globulin 4.1 g/dL (2.2-4.2); Glucose 224 mg/dL (74-106); High Density Lipoprotein 39 mg/dL; Potassium 3.9 mmol/L (3.5-5.1); Protein, Total 7.4 g/dL (6.4-8.2); Sodium Level 139 mmol/L (136-145); Triglycerides 207 mg/dL; Very Low Density Lipoprotein 41 mg/dL (5-40)
[2023-08-16 19:26] LABS: Hepatitis C Antibody Non-Reactive (Nonreactive)
== END | disposition home or self-care (01) ==
LOC: BFHLAB 14:02
PROVIDERS: PCP Family Medicine; Referring Provider Family Medicine; Visit Provider Family Medicine
DX: E11.9 Type 2 diabetes mellitus without complications (principal); I10 Essential (primary) hypertension; I25.10 Atherosclerotic heart disease of native coronary artery without angina pectoris; Z11.59 Encounter for screening for other viral diseases
CPT/HCPCS: 36415; 80053; 80061; 85025; 86803

== ENCOUNTER → 2024-09-02 | Outpatient (CLI) | payer MEDICARE, SELFPAY ==
[2022-03-31 10:38] VITALS: BMI 43.2
--- OUTSIDE RECORDS SUMMARY | 2024-09-02 06:54 | XMS RPT_ITS | CCD ---
Author Organization [facility] CliniSymn Care Team Providers Care Imcu Specialist Name Role Phone Lilly Rosenbaum Unavailable Unavailable VOLL BLAINE Vaughan Unavailable Unavailable XIOMARA CASTAÑEDA Unavailable Unavailable ZOYA, ROXANA-CHI Attending Unavailable DAWN RIVERA Primary Care Unavailable Dr. Dawn Rivera Primary Care Provider Dr. Dawn Rivera Referring Provider [phone] MD Tony Ríos Attending Provider [phone] Dr. Seun Blair Attending Provider [phone] DAWN RIVERA Primary Care Physician Chuy Rounding Nurse, Randy Unavailable Vaishnavi CHINO MD, DR HAYES Primary Care Physician Pau Maynard Unavailable Unavailable Dr. Dawn Rivera Primary Care Provider Dr. Dawn Rivera Referring Provider [phone] DANISHA Swift Attending Provider NESTOR LASSITER MD Attending Unavailable DAWN RIVERA Primary Care Unavailable NESTOR LASSITER MD Attending Unavailable DAWN RIVERA Primary Care Unavailable NESTOR LASSITER MD Attending Unavailable DR FREDDY CHINO MD Primary Care Unavailable NESTOR LASSITER MD Attending Unavailable DR FREDDY CHINO MD Primary Care Unavailable SIMIN DISLA Attending Unavail able DAWN RIVERA Primary Care Unavailable NESTOR LASSITER MD Attending Unavailable DAWN RIVERA Primary Care Unavailable SIMIN DISLA Attending Unavail able DAWN RIVERA Primary Care Unavailable NESTOR LASSITER MD Attending Unavailable MIEDEL, DAWN Primary Care Unavailable NESTOR LASSITER MD Admitting Unavailable JUNE THOMAS MD Consulting Unavailable MIDAWN HARMON Consulting Unavailable ROSEANNE CHOUDHURY MD Consulting Unavailable MIEDEL, DAWN Primary Care Unavailable NESTOR LASSITER MD Attending Unavailable NESTOR LASSITER MD Admitting Unavailable NESTOR LASSITER MD Consulting Unavailable HOSPITALIST, LYNDA Consulting Unavailable LASKOVSKI DO, KENIA Consulting UnavailNESTOR Pierce MD Attending Unavailable MIEDASAF, DAWN Primary Care Unavailable NESTOR LASSITER MD Attending Unavailable DR FREDDY CHINO MD Primary Care Unavailable NESTOR LASSITER MD Attending Unavailable MIEDEN, DAWN Primary Care Unavailable SIMIN DISLA Attending Unavail able MIRK HARMONNAH Primary Care Unavailable JOHAN ESCAMILLA Admitting Unavailable JOHAN ESCAMILLA Attending Unavailable JOHAN ESCAMILLA Primary Care Unavailable DAWN RIVERA Consulting Unavailable DAWN RIVERA Referring Unavailable PROVIDER, UNKNOWN Consulting Unavailable PROVIDER, UNKNOWN Consulting Unavailable FREDDY CHINO MD Admitting Unavailable FREDDY CHINO MD Attending Unavailable FREDDY CHINO MD Primary Care Unavailable RK RIVERANAH Consulting Unavailable PROVIDER, UNKNOWN Consulting Unavailable PROVIDER, UNKNOWN Consulting Unavailable DINORAH SWIFT Admitting Unavailable DINORAH SWIFT Attending Unavailable DINORAH SWIFT Primary Care Unavailable MIRK HARMONNAH Consulting Unavailable PROVIDER, UNKNOWN Consulting Unavailable PROVIDER, UNKNOWN Consulting Unavailable Dr. Dawn Rivera MD Primary Care Provider Dr. Dawn Rivera MD Referring Provider Justice LUCIO-CClotilde Attending Provider Feliciano LUCIO-CDinorah Attending Provider Dawn Rivera Referring Unavailable Nicole, Dawn Primary Care Unavailable Dinorah Swift Attending Unavailable Mieden, Dawn Primary Care Unavailable Gareth Sevilla NP Attending Unavailable Dawn Rivera Referring Unavailable Justice REAR ADMIRAL, Clotilde Attending Unavailable Dawn Rivera Primary Care Unavailable Justice REAR ADMIRAL, Clotilde Attending Unavailable Justice REAR ADMIRAL, Clotilde Referring Unavailable Dawn Rivera Primary Care Unavailable Miedasaf, Dawn Primary Care Unavailable Dawn Rivera Attending Unavailable Dawn Rivera Referring Unavailable Dinorah Swift Attending Unavailable Dawn Rivera Referring Unavailable Nicole Dawn Primary Care Unavailable Nicole Dawn Referring Unavailable Nicole Dawn Primary Care Unavailable Dinorah Swift Attending Unavailable Dawn Rivera Referring Unavailable Seun Blair Attending Unavailable Maedel, Dawn Primary Care Unavailable Medications Current Medications Medication Drug Class(es) Dates Sig (Normalized) Sig (Original) acetaminophen 325 mg oral capsule (11 sources) Start: 01-17-2023 Tylenol 325 mg oral capsule Dose : 650 mg =, Oral, q4h, PRN Pain, scale 1-3, 0 Refill(s) Start Date: 01/17/23 Status: Ordered acetaminophen 325 mg / HYDROcodone bitartrate 5 mg oral tablet (9 sources) Opioid Agonist Start: 06-20-2023 End: 06-27-2023 [place] 325- 5 mg oral tablet Dose = 1 tab(s), Oral, q6hr, PRN Pain, scale 4-10, X 7 day(s), # 28 tab(s), 0 Refill(s), Pharmacy: [id number], S/P lumbar laminectomy, 149.9, cm, 06/19/23 12:54:00 EDT, Height, 95.7, kg, 06/19/23 12:54:00 EDT, Dosing Weight Start Date: 06/20/23 Stop Date: 06/27/23 Status: Ordered Start: 01-17-2023 End: 01-24-2023 [place] 325- 5 mg oral tablet 1-2 tab(s), Oral, q6hr, PRN as needed for pain, Take 1 tablet for pain level 4-6 or take 2 tablets for pain level 7-10. Do not exceed 6 tablets/day., X 7 day(s), # 42 tab(s), 0 Refill(s), S/P lumbar fusion, 105.9 Start Date: 01/17/23 Stop Date: 01/24/23 Status: Ordered Start: 06-12-2017 End: 07-06-2017 Hydrocodone-Acetaminophen 1 TABLET tablet Discontinued 1 - 2 {tbl} PO EVERY 6 HOURS NEEDED as needed for Pain 60 June 12, 2017 12:00am July 06, 2017 9:09am Start: 06-12-2017 End: 07-06-2017 take 1 tablet by mouth every six hours as needed Hydrocodone-Acetaminophen Discontinued 1 - 2 TABLET PO EVERY 6 HOURS NEEDED 60 June 12, 2017 12:00am July 06, 2017 9:09am Start: 08-30-2016 take 1-2 tablets by mouth every six hours as needed NORCO 5-325 MG TABS 1-2 tablets by mouth every 6 hours as needed HYDROCODONE-ACETAMINOPHEN [id number] Noelle Todd RN Alcohol Swabs (11 sources) Start: 01-17-2023 Alcohol Swabs See Instructions, 1 box, # 1 EA, 0 Refill(s), Diabetes, 105.9 Start Date: 01/17/23 Status: Ordered Aluminum Hydroxide / Magnesium Hydroxide / Simethicone (5 sources) Start: 01-17-2023 Maalox Oral, q 2h, PRN Indigestion, 0 Refill(s) Start Date: 01/17/23 Status: Ordered aspirin 81 mg delayed release oral tablet (20 sources) Nonsteroidal Anti-inflammatory Drug Start: 06-11-2017 take 1 tablet by mouth once daily Aspirin 81 MG tablet,delayed release (DR/EC) Active 81 mg PO DAILY June 11, 2017 12:00am Start: 04-18-2017 End: 05-01-2017 take 1 tablet by mouth twice daily Aspirin 325 MG tablet Discontinued 325 mg PO TWICE A DAY April 20, 2017 4:37pm May 01, 2017 9:38pm Start: 04-17-2014 End: 04-18-2017 take 1 tablet by mouth once daily Aspirin 81 MG tablet,chewable Discontinued 81 mg PO DAILY@0800 April 17, 2014 1:00am April 18, 2017 5:32pm Start: 11-26-2013 take 1 tablet by crow th once daily ASPIRIN 81 MG TABS One tablet by mouth daily ASPIRIN [id number] Charline Alvarez RN Start: 11-26-2013 take 1 tablet by crow th once daily ASPIRIN EC 81 MG TBEC One tablet by mouth daily ASPIRIN [id number] Rupa Mckeon RN atorvastatin 40 mg oral tablet (20 sources) HMG-CoA Reductase Inhibitor Start: 01-25-2024 take 1 tablet by mouth at bedtime Atorvastatin 40 mg tablet Active 40 mg PO AT BEDTIME January 25, 2024 1:11pm Start: 02-11-2019 End: 01-25-2024 take 1 tablet by mouth at bedtime Atorvastatin 20 mg tablet Discontinued 20 mg PO AT BEDTIME October 16, 2022 2:29pm January 25, 2024 1:12pm Blood Glucose Test Machine (11 sources) Start: 01-17-2023 Blood Glucose Test Machine See Instructions, Device as determined by insurance coverage, # 1 EA, 0 Refill(s), Diabetes, 105.9 Start Date: 01/17/23 Status: Ordered cefdinir 300 mg oral capsule (1 source) Cephalosporin Antibacterial Start: 01-17-2023 End: 01-21-2023 cefdinir 300 mg oral capsule Dose : 300 mg = 1 cap(s), Oral, q12h, X 4 day(s), # 8 cap(s), 0 Refill(s), 01/21/23 9:13:00 AM EST, Pharmacy: [facility]/pharmacy #[id number], 152.4, cm, 01/14/23 1:55:00 EST, Height, 105.9, kg, 01/14/23 1:55:00 EST, Dosing Weight Start Date: 01/17/23 Stop Date: 01/21/23 Status: Ordered cholecalciferol 0.05 mg oral capsule (1 source) Vitamin D Start: 08-07-2024 take 1 capsule by mouth once daily Cholecalciferol (Vitamin D3) 50 mcg (2,000 unit) capsule Active 50 ug PO daily August 07, 2024 12:00am citalopram 20 mg oral tablet (18 sources) Serotonin Reuptake Inhibitor Start: 05-07-2014 take 1 tablet by mouth at bedtime Citalopram 20 MG tablet Active 20 mg PO AT BEDTIME July 11, 2016 12:00am cyclobenzaprine hydrochloride 10 mg oral tablet (8 sources) Muscle Relaxant Start: 02-08-2019 take 1 tablet by mouth at bedtime Cyclobenzaprine 10 MG tablet Active 10 mg PO AT BEDTIME February 08, 2019 1:00am DME MISCellaneous (11 sources) Start: 01-17-2023 DME MISCellaneous See Instructions, Blood Pressure Cuff/ 1KIT, # 1 EA, 0 Refill(s), Hypertension, 105.9 Start Date: 01/17/23 Status: Ordered docusate sodium 100 mg oral capsule (12 sources) Start: 01-17-2023 Colace 100 mg oral capsule Dose : 100 mg = 1 cap(s), Oral, BID, PRN Constipation, 0 Refill(s) Start Date: 01/17/23 Status: Ordered Start: 04-18-2017 End: 05-01-2017 take 1 capsule by mouth twice daily as needed for constipation Docusate Sodium 100 MG capsule Discontinued 100 mg PO TWICE DAILY NEEDED as needed for Constipation April 18, 2017 1:00am May 01, 2017 9:38pm Start: 08-30-2016 take 1 tablet by crow th twice daily as needed COLACE 100 MG CAPS One tablet by mouth twice daily as needed DOCUSATE SODIUM [id number] Noelle Todd RN docusate sodium 50 mg / sennosides, skilled nursing 8.6 mg oral tablet (11 sources) Start: 01-17-2023 take 1 tablet by mouth once daily at bedtime docusate-senna 50 mg-8.6 mg oral tablet Dose = 2 tab(s), Oral, qHS, 0 Refill(s) Start Date: 01/17/23 Status: Ordered Start: 01-17-2023 take 1 tablet by crow th twice daily docusate-senna 50 mg-8.6 mg oral tablet Dose = 1 tab(s), Oral, BID, 0 Refill(s) Start Date: 01/17/23 Status: Ordered ferrous fumarate 325 mg oral tablet (1 source) Start: 08-07-2024 take 1 tablet by mouth once daily Ferrous Fumarate 325 mg (106 mg iron) tablet Active 325 mg PO daily August 07, 2024 12:00am furosemide 20 mg oral tablet (20 sources) Loop Diuretic Start: 06-11-2023 take 1 dose by mouth once daily in the morning Lasix Dose : 10 mg =, Oral, qAM, 0 Refill(s) Start Date: 06/11/23 Status: Ordered Start: 03-11-2020 End: 04-04-2022 take 1 tablet by mouth once daily Furosemide 20 mg tablet Discontinued 20 mg PO DAILY March 11, 2020 11:19am April 04, 2022 10:17am 24 hr metoprolol succinate 50 mg extended release oral tablet (20 sources) beta-Adrenergic Allan Start: 10-11-2023 take 1 tablet by mouth once daily Metoprolol Succinate 50 mg tablet extended release 24 hr Active 50 mg PO DAILY October 11, 2023 10:41am Start: 06-28-2023 End: 10-11-2023 take 1 tablet by mouth every twenty-four hours at bedtime Metoprolol Succinate 50 mg tablet extended release 24 hr Discontinued 50 mg PO AT BEDTIME June 28, 2023 12:00am October 11, 2023 10:41am Start: 06-19-2023 End: 06-19-2023 metoprolol succinate 50 mg o ral TABLET extended release Start: 06/19/23 10:00:00 PM EDT, Dose = 50 mg, = 1 tab(s), Oral, 0, 06/19/23 6:08:00 EDT Start Date: 06/19/23 Stop Date: 06/19/23 Status: Completed Start: 01-15-2023 End: 01-17-2023 metoprolol succinate 50 mg o ral TABLET extended release Start: 01/17/23 8:00:00 AM EST, Dose = 50 mg, = 1 tab(s), Oral, 0, 01/13/23 19:07:00 EDT Start Date: 01/17/23 Stop Date: 01/17/23 Status: Completed Start: 09-08-2020 End: 06-28-2023 take 1 tablet by mouth twice daily Metoprolol Tartrate 50 mg tablet Discontinued 50 mg PO TWICE A DAY September 08, 2020 12:00am June 28, 2023 9:47am Start: 12-31-2019 End: 09-08-2020 take 1 tablet by mouth once daily Metoprolol Succinate 50 mg tablet extended release 24 hr Discontinued 50 mg PO DAILY March 01, 2020 1:00am September 08, 2020 10:01am Start: 11-29-2013 End: 03-01-2020 take 1 tablet by mouth twice daily Metoprolol Tartrate 50 MG tablet Discontinued 50 mg PO TWICE A DAY April 17, 2014 1:00am March 01, 2020 3:59pm mupirocin 0.02 mg/mg topical ointment (2 sources) RNA Synthetase Inhibitor Antibacterial Start: 06-11-2023 mupirocin 2% topical ointment Apply 1 neptali, Topical, BID, Bilateral intranasal application twice daily x 5 days pre-surgery., Apply to: nostril, each, # 22 gram(s), 0 Refill(s), Pharmacy: [id number], Ointment, 150, cm, 06/11/23 11:49:00 EDT, Height, 98, kg, 06/11/23 11:49:00 EDT, Dosing Weight Start Date: 06/11/23 Status: Ordered omeprazole 20 mg delayed release oral capsule (18 sources) Proton Pump Inhibitor Start: 06-11-2017 take 1 capsule by mouth once daily Omeprazole 20 MG capsule,delayed release(DR/EC) Active 20 mg PO DAILY June 11, 2017 12:00am Start: 01-07-2014 take 1 tablet by crow th once daily PRILOSEC 20 MG CPDR One tablet by mouth daily OMEPRAZOLE [id number] Seun Blair MD polyethylene glycol 3350 91248 mg powder for oral solution (12 sources) Osmotic Laxative Start: 06-11-2023 take 17 doses by mouth once daily at bedtime as needed for constipation MiraLax oral powder for reconstitution Dose : 17 gram(s) =, Oral, qHS, PRN constipation, # 238 gram(s), 0 Refill(s) Start Date: 06/11/23 Status: Ordered Start: 05-01-2017 End: 06-11-2017 take 17 g by mouth once daily Polyethylene Glycol 3350 17 GM packet Discontinued 17 g PO DAILY May 01, 2017 1:00am June 11, 2017 10:07am Semaglutide (Weight Loss) (2 sources) Start: 03-07-2024 Semaglutide (W eight Loss) 0.5 mg/0.5 mL pen injector Active 0.5 mg SC EVERY WEEK 2 March 07, 2024 1:57pm administer weeks 1 through 4 of therapy Start: 03-07-2024 End: 03-07-2024 Semaglutide (Weight Loss) 0. 5 mg/0.5 mL pen injector Discontinued 0.25 mg SC EVERY WEEK 2 March 07, 2024 1:57pm March 07, 2024 1:57pm administer weeks 1 through 4 of therapy levothyroxine sodium 0.125 mg oral tablet (20 sources) l-Thyroxine Start: 06-28-2023 take 1 tablet by mouth once daily Levothyroxine 125 mcg tablet Active 125 ug PO daily June 28, 2023 12:00am Start: 01-13-2023 levothyroxine 125 mcg (0.125 mg) oral tablet Dose : 125 mcg = 1 tab(s), Oral, qAM Start Date: 01/13/23 Status: Ordered Start: 03-01-2020 End: 06-28-2023 take 1 tablet by mouth once daily Levothyroxine 112 mcg tablet Discontinued 112 ug PO DAILY March 01, 2020 1:00am June 28, 2023 9:47am Start: 11-29-2013 End: 03-01-2020 take 1 tablet by mouth once daily Levothyroxine 100 MCG tablet Discontinued 100 ug PO DAILY April 17, 2014 1:00am March 01, 2020 3:58pm tiZANidine 4 mg oral tablet (9 sources) Central alpha-2 Adrenergic Agonist Start: 06-20-2023 tiZANidine 4 mg oral tablet Dose : 4 mg = 1 tab(s), Oral, TID, PRN Muscle spasm, # 30 tab(s), 0 Refill(s), Pharmacy: [id number], 149.9, cm, 06/19/23 12:54:00 EDT, Height, kg, 06/19/23 12:54:00 EDT, Dosing Weight Start Date: 06/20/23 Status: Ordered Start: 01-17-2023 tiZANidine 4 m g oral tablet Dose : 4 mg = 1 tab(s), Oral, TID, PRN Muscle spasm, 0 Refill(s) Start Date: 01/17/23 Status: Ordered Completed/Discontinued Medications Medication Drug Class(es) Dates Sig (Normalized) Sig (Original) acetaminophen 325 mg / oxyCODONE hydrochloride 5 mg oral tablet (18 sources) Opioid Agonist Start: 05-24-2017 End: 05-25-2017 Oxycodone-Acetamino phen 1 TABLET tablet Discontinued 0 PO EVERY 6 HOURS as needed for Pain 60 May 24, 2017 May 25, 2017 1:44pm 1-2 po q6h prn pain PO Q6H PRN #60 rf 0 Start: 05-24-2017 End: 05-25-2017 Oxycodone-Acetaminophen Disc ontinued 0 PO EVERY 6 HOURS 60 May 24, 2017 May 25, 2017 1:44pm 1-2 po q6h prn pain PO Q6H PRN #60 rf 0 Start: 04-18-2017 End: 05-24-2017 Oxycodone-Acetaminophen 1 TA BLET tablet Discontinued 1 - 2 {tbl} PO EVERY 4 HOURS NEEDED as needed for Pain May 01, 2017 9:38pm May 24, 2017 4:10pm Start: 04-18-2017 End: 05-24-2017 take 1 tablet by mouth every four hours as needed Oxycodone-Acetaminophen Discontinued 1 - 2 TABLET PO EVERY 4 HOURS NEEDED May 01, 2017 9:38pm May 24, 2017 4:10pm acyclovir 400 mg oral tablet (6 sources) Herpesvirus Nucleoside Analog DNA Polymerase Inhibitor, Herpes Simplex Virus Nucleoside Analog DNA Polymerase Inhibitor, Herpes Zoster Virus Nucleoside Analog DNA Polymerase Inhibitor Start: 05-21-2019 End: 08-29-2019 take 1 tablet by mouth five times daily Acyclovir 400 MG tablet Discontinued 1 {tbl} PO 5 TIMES DAILY 50 May 21, 2019 12:00am August 29, 2019 1:16pm albuterol 0.83 mg/ml inhalant solution (1 source) beta2-Adrenergic Agonist Start: 11-12-2014 ALBUTEROL SULFATE NEBU 90 Mcg/inh as needed ALBUTEROL SULFATE NEBU Seun Domitila Blair MD amLODIPine 5 mg oral tablet (5 sources) Dihydropyridine Calcium Channel Allan Start: 01-17-2023 End: 02-16-2023 amLODIPine 5 mg oral tablet Dose : 5 mg = 1 tab(s), Oral, qDay, # 30 tab(s), 0 Refill(s), Pharmacy: [facility]/pharmacy #[id number], 152.4, cm, 01/14/23 1:55:00 EST, Height, kg, 01/14/23 1:55:00 EST, Dosing Weight Start Date: 01/17/23 Stop Date: 02/16/23 Status: Ordered cephalexin 500 mg oral capsule (6 sources) Cephalosporin Antibacterial Start: 02-23-2020 End: 03-01-2020 take 1 capsule by mouth every twelve hours Cephalexin 500 MG capsule Discontinued 500 mg PO EVERY 12 HOURS February 23, 2020 1:00am March 01, 2020 3:58pm clopidogrel 75 mg oral tablet (20 sources) P2Y12 Platelet Inhibitor Start: 05-01-2017 End: 04-04-2022 take 1 tablet by mouth once daily Clopidogrel 75 mg tablet Discontinued 0 .ROUTE .COMPLEX 90 August 30, 2020 9:20am April 04, 2022 10:32am TAKE 1 TABLET BY MOUTH DAILY Start: 11-26-2013 End: 04-18-2017 take 1 tablet by mouth once daily Clopidogrel 75 MG tablet Discontinued 75 mg PO DAILY April 17, 2014 1:00am April 18, 2017 5:32pm doxycycline monohydrate 100 mg oral capsule (6 sources) Tetracycline-class Drug Start: 12-25-2019 End: 03-11-2020 take 1 capsule by mouth twice daily Doxycycline Monohydrate 100 MG capsule Discontinued 100 mg PO TWICE A DAY December 25, 2019 12:00am March 11, 2020 10:57am empagliflozin 25 mg oral tablet (2 sources) Sodium-Glucose Cotransporter 2 Inhibitor Start: 10-11-2023 End: 01-10-2024 take 1 tablet by mouth once daily Empagliflozin 25 mg tablet Discontinued 25 mg PO DAILY November 05, 2023 12:00pm January 10, 2024 4:38pm CONJ ESTROG-MEDROXYPROG EST [place] (2 sources) Progestin, Estrogen Start: 11-29-2013 take 1 tablet by mouth once daily PREMPRO 0.3-1.5 MG TABS One tablet by mouth daily CONJ ESTROG-MEDROXYPRO GEST [place] [id number] Charline Alvaerz RN Start: 11-29-2013 End: 08-30-2016 take 1 tablet by mouth once daily PREMPRO 0.3-1.5 MG TABS One tablet by mouth daily CONJ ESTROG-MEDROXYPROGEST [place] [id number] Noelle Todd RN famotidine 20 mg oral tablet (12 sources) Histamine-2 Receptor Antagonist Start: 04-18-2017 End: 05-01-2017 take 1 tablet by mouth twice daily Famotidine 20 MG tablet Discontinued 20 mg PO TWICE A DAY April 20, 2017 4:37pm May 01, 2017 9:38pm ferrous sulfate 325 mg oral tablet (17 sources) Start: 02-08-2019 End: 08-01-2024 take 1 tablet by mouth once daily Ferrous Sulfate 325 MG tablet Discontinued 325 mg PO DAILY February 08, 2019 1:00am August 01, 2024 3:13pm FLUoxetine 10 mg oral capsule (1 source) Serotonin Reuptake Inhibitor Start: 05-07-2014 take 1 tablet by mouth once daily PROZAC 10 MG CAPS One tablet by mouth daily FLUOXETINE HCL [id number] Rupa Alexis PA-C 120 actuat formoterol fumarate 0.0048 mg/actuat / glycopyrrolate 0.009 mg/actuat metered dose inhaler (12 sources) beta2-Adrenergic Agonist Start: 03-30-2017 End: 04-10-2017 Glycopyrrolate-For moterol (Bevespi Aerosphere) 9-4.8 mcg HFA aerosol inhaler Discontinued 2 NMA INHALATION TWICE A DAY 10.7 March 30, 2017 4:17pm April 10, 2017 2:22pm Start: 03-30-2017 End: 04-10-2017 Glycopyrrolate-Formoterol (B evespi Aerosphere) 9-4.8 mcg HFA aerosol inhaler Discontinued 2 PUFF INHALATION TWICE A DAY 10.7 March 30, 2017 4:17pm April 10, 2017 2:22pm gabapentin 300 mg oral capsule (20 sources) Anti-epileptic Agent Start: 01-25-2024 End: 08-01-2024 take 1 capsule by mouth at bedtime Gabapentin 300 mg capsule Discontinued 300 mg PO AT BEDTIME January 25, 2024 12:57pm August 01, 2024 3:26pm Start: 01-13-2023 gabapentin 300 mg oral capsule Dose : 600 mg = 2 cap(s), Oral, qHS, 105.9 Start Date: 01/13/23 Status: Ordered Start: 03-11-2020 End: 01-25-2024 take 2 capsules by mouth at bedtime Gabapentin 300 mg capsule Discontinued 600 mg PO AT BEDTIME March 11, 2020 1:00am January 25, 2024 12:58pm Start: 03-11-2020 take 600 mg by mouth at bedtim e Gabapentin Active 600 MG PO AT BEDTIME March 11, 2020 1:00am Start: 04-29-2015 End: 03-01-2020 take 1 tablet by mouth every twenty-four hours at bedtime Gabapentin 600 MG tablet extended release 24 hr Discontinued 600 mg PO AT BEDTIME April 29, 2015 1:00am March 01, 2020 3:59pm Start: 11-12-2014 take 1 tablet by crow th once daily GABAPENTIN 300 MG CAPS One tablet by mouth daily every night GABAPENTIN [id number] Seun Blair MD Start: 11-12-2014 take 1 tablet by crow th once daily GABAPENTIN 600 MG TABS One tablet by mouth every night GABAPENTIN [id number] Noelle Todd RN 3 ml insulin glargine 100 unt/ml pen injector (18 sources) Insulin Analog Start: 06-28-2023 End: 10-11-2023 Insulin Glargine (Lantus Solostar U-100 Insulin) 100 unit/mL (3 mL) insulin pen Discontinued 10 U SC AT BEDTIME September 27, 2023 2:18pm October 11, 2023 3:58pm Start: 06-19-2023 inject 1 dose by sub cutaneous injection once daily at bedtime Lantus 100 units/mL10 ml vial solution Dose : 8 unit(s) =, Subcutaneous, qHS, # 10 mL, 0 Refill(s) Start Date: 06/19/23 Status: Ordered Start: 01-17-2023 End: 02-16-2023 inject 1 dose by subcutaneous injection once daily in the morning Lantus Solostar Pen 100 units/mL 3 mL Pen Dose : 8 unit(s) =, Subcutaneous, qAM, for AM blood sugar >140 , will take 10U at HS, if AM blood sugar is below 140 will take 8 units at HS OK to change to vial if pens are not covered by insurance., # 15 mL, 0 Refill(s), Pharmacy: [facility]/pharmacy #[id number], Diabetes, 152.4, cm, 01/14/23 1:55:00 EST, Height, kg, 01/14/23 1:55:00 EST, Dosing Weight Start Date: 01/17/23 Stop Date: 02/16/23 Status: Ordered 3 ml insulin lispro 100 unt/ml pen injector (14 sources) Insulin Analog Start: 09-27-2023 End: 10-11-2023 Insulin Lispro (Humalog Kwikpen Insulin) 100 unit/mL insulin pen Discontinued 3 U SC THREE TIMES A DAY September 27, 2023 2:19pm October 11, 2023 3:58pm Start: 06-28-2023 End: 09-27-2023 Insulin Lispro (Humalog Kwik pen Insulin) 100 unit/mL insulin pen Discontinued 1 sliding scale dose SC THREE TIMES A DAY June 28, 2023 12:00am September 27, 2023 2:19pm Start: 06-28-2023 Insulin Lispro (Humalog Kwikpen Insulin) 100 unit/mL insulin pen Active 1 sliding scale dose SC THREE TIMES A DAY June 28, 2023 12:00am Start: 01-17-2023 HumaLOG KwikPe n 100 units/mL injectable PEN 5- 15 units, Subcutaneous, TIDAC, 150-200 = 5units, 201-250 = 8units, 251-300= 12 units, 301 or greater will take 15unit, # 10 mL, 0 Refill(s), Pharmacy: [facility]/pharmacy #[id number], Diabetes, 152.4, cm, 01/14/23 1:55:00 EST, Height, kg, 01/14/23 1:55:00 EST, Dosing Weight Start Date: 01/17/23 Status: Ordered Start: 01-17-2023 HumaLOG KwikPe n 100 units/mL injectable PEN See Instructions, Subcutaneous TIDAC w/sliding scale BS 300 - 16 units, call PCP, # 15 mL, 0 Refill(s), Pharmacy: [facility]/pharmacy #[id number], Diabetes, 152.4, cm, 01/14/23 1:55:00 EST, Height, kg, 01/14/23 1:55:00 EST, Dosing Weight Start Date: 01/17/23 Status: Ordered lisinopril 5 mg oral tablet (2 sources) Angiotensin Converting Enzyme Inhibitor Start: 11-29-2013 take 1 tablet by mouth once daily LISINOPRIL 5 MG TABS One half tablet by mouth daily LISINOPRIL [id number] Rupa Alexis PA-C magnesium oxide 400 mg oral tablet (2 sources) Start: 02-20-2014 take 1 tablet by mouth once daily MAGNESIUM OXIDE 400 MG TABS One tablet by mouth daily MAGNESIUM OXIDE [id number] Noelle Todd RN Start: 02-20-2014 take 1 tablet by twice daily MAGNESIUM OXIDE 400 MG TABS One tablet by mouth twice daily MAGNESIUM OXIDE [id number] Charline Alvarez RN meloxicam 15 mg oral tablet (6 sources) Nonsteroidal Anti-inflammatory Drug Start: 02-08-2019 End: 02-11-2019 take 1 tablet by mouth once daily Meloxicam 15 MG tablet Discontinued 15 mg PO DAILY February 08, 2019 1:00am February 11, 2019 8:46am methylprednisoLONE 4 mg oral tablet (2 sources) Corticosteroid Start: 12-30-2015 End: 03-01-2016 METHYLPREDNISOLONE 4 MG TABS take as directed METHYLPREDNISOLONE [id number] Rupa Alexis PA-C Miconazole (5 sources) Azole Antifungal Start: 01-17-2023 miconazole 2% topical powder Apply 1 neptali, Topical, BID, 0 Refill(s), Powder, 105.9 Start Date: 01/17/23 Status: Ordered Nirmatrelvir-Ritonavir (6 sources) Start: 12-25-2021 End: 04-04-2022 Nirmatrelvir-Ritonavi r (Paxlovid (Eua)) 300 mg (150 mg x 2)-100 mg tablets,dose pack Discontinued 0 PO .COMPLEX December 25, 2021 12:00am April 04, 2022 10:17am take TWO 150 mg tablets of nirmatrelvir with ONE 100 mg tablet of ritonavir twice daily for 5 days Start: 12-25-2021 Nirmatrelvir-R itonavir (Paxlovid (Eua)) 300 mg (150 mg x 2)- 100 mg tablets,dose pack Active 0 PO .COMPLEX December 24, 2021 11:00pm take TWO 150 mg tablets of nirmatrelvir with ONE 100 mg tablet of ritonavir twice daily for 5 days Start: 12-25-2021 Nirmatrelvir-R itonavir (Paxlovid (Eua)) 300 mg (150 mg x 2)- 100 mg tablets,dose pack Active 0 PO .COMPLEX December 25, 2021 12:00am take TWO 150 mg tablets of nirmatrelvir with ONE 100 mg tablet of ritonavir twice daily for 5 days ondansetron 4 mg disintegrating oral tablet (6 sources) Serotonin-3 Receptor Antagonist Start: 12-25-2019 End: 03-01-2020 take 1 tablet by mouth every eight hours as needed for nausea Ondansetron 4 MG tablet Discontinued 4 mg PO EVERY 8 HOURS NEEDED as needed for Nausea December 25, 2019 12:00am March 01, 2020 3:59pm predniSONE 20 mg oral tablet (6 sources) Start: 05-21-2019 End: 08-29-2019 take 3 tablets by mouth once daily at mealtime Prednisone 20 MG tablet Discontinued 60 mg PO DAILY May 21, 2019 12:00am August 29, 2019 1:16pm With food Start: 05-21-2019 End: 08-29-2019 take 60 mg by mouth once daily at mealtime Prednisone Discontinued 60 MG PO DAILY May 21, 2019 12:00am August 29, 2019 1:16pm With food promethazine hydrochloride 25 mg oral tablet (7 sources) Phenothiazine Start: 06-12-2017 End: 06-26-2017 take 1 tablet by mouth every four hours as needed for nausea Promethazine 25 MG tablet Discontinued 25 mg PO EVERY 4 HOURS NEEDED as needed for Nausea June 12, 2017 12:00am June 26, 2017 12:46pm Start: 08-30-2016 take 1 tablet by crow th once as needed, then take 4 tablets by mouth as needed PROMETHAZINE HCL 25 MG TABS One tablet by mouth every 4 hurs as needed PROMETHAZINE HCL [id number] Noelle Todd RN raNITIdine 150 mg oral tablet (2 sources) Histamine-2 Receptor Antagonist Start: 11-29-2013 End: 01-07-2014 take 1 tablet by mouth at bedtime as needed RANITIDINE HCL 150 MG TABS One tablet by mouth at bedtime. as needed RANITIDINE HCL [id number] Charline Alvarez RN Semaglutide (2 sources) Start: 01-10-2024 End: 01-25-2024 Semaglutide (Ozempic) 0.25 mg or 0.5 mg (2 mg/3 mL) pen injector Discontinued 0.5 mg SC EVERY WEEK 3 January 10, 2024 4:40pm January 25, 2024 10:41am Start: 10-11-2023 End: 01-10-2024 Semaglutide (Ozempic) 0.25 m g or 0.5 mg (2 mg/3 mL) pen injector Discontinued 0.5 mg SC EVERY WEEK 3 October 11, 2023 12:00am January 10, 2024 4:41pm Semaglutide (Weight Loss) (1 source) Start: 01-25-2024 End: 03-07-2024 Semaglutide (Weight Loss) (Wegovy) 0.25 mg/0.5 mL pen injector Discontinued 0.25 mg SC EVERY WEEK 2 January 25, 2024 1:00am March 07, 2024 1:57pm administer weeks 1 through 4 of therapy simvastatin 40 mg oral tablet (20 sources) HMG-CoA Reductase Inhibitor Start: 11-26-2013 End: 02-11-2019 take 1 tablet by mouth at bedtime Simvastatin 40 mg tablet Discontinued 40 mg PO AT BEDTIME August 14, 2018 5:01pm February 11, 2019 8:46am traMADol hydrochloride 50 mg oral tablet (4 sources) Opioid Agonist Start: 03-10-2022 End: 04-04-2022 take 1 tablet by mouth twice daily as needed for pain Tramadol 50 mg tablet Discontinued 50 mg PO TWICE A DAY as needed for pain March 10, 2022 1:00am April 04, 2022 10:17am Problems Active Problems Problem Classification Problem Date Documented Date Episodic/Chronic Acute myocardial infarction (9 sources) Acute subendocardial infarction; Translations: [Non-ST elevation (NSTEMI) myocardial infarction] Onset: 11-26-2013 Resolved: 11-12-2014 11-12-2014 Chronic Comment on above: 11/24/2013, 9 Acute posthemorrhagic anemia (1 source) Acute posthemorrhagic anemia; Translations: [Acute posthemorrhagic anemia] Episodic Cardiac dysrhythmias (7 sources) Supraventricular tachycardia; Translations: [Supraventricular tachycardia] 06-12-2017 Chronic Cardiac dysrhythmias (6 sources) Tachycardia; Translations: [Tachycardia, unspecified] 03-11-2020 Episodic Chronic obstructive pulmonary disease and bronchiectasis (2 sources) Chronic obstructive lung disease; Translations: [Chronic obstructive pulmonary disease, unspecified] Chronic Congestive heart failure; nonhypertensive (19 sources) Chronic diastolic heart failure; Translations: [Chronic diastolic (congestive) heart failure] Onset: 08-07-2024 Chronic Coronary atherosclerosis and other heart disease (14 sources) Atherosclerotic heart disease of comanche coronary artery without angina pectoris; Translations: [Coronary atherosclerosis] Onset: 11-29-2013 03-01-2016 Chronic Comment on above: Stenting to LCx in 2 014; KP to LCx in February 2019; Coronary atherosclerosis and other heart disease (2 sources) Presence of coronary angioplasty implant and graft; Translations: [Presence of coronary angioplasty implant and graft] Onset: 11-12-2014 11-12-2014 Episodic Deficiency and other anemia (10 sources) Anemia 01-29-2023 Episodic Diabetes mellitus with complications (2 sources) Hyperglycemia due to type 2 diabetes mellitus; Translations: [Type 2 diabetes mellitus with hyperglycemia] Onset: 08-07-2024 Chronic Diabetes mellitus without complication (4 sources) Diabetes mellitus; Translations: [Type 2 diabetes mellitus without complications] Onset: 01-17-2023 06-28-2023 Chronic Disorders of lipid metabolism (10 sources) Hyperlipidemia; Translations: [Hyperlipidemia, unspecified] Onset: 11-26-2013 11-26-2013 Chronic Esophageal disorders (10 sources) Gastroesophageal reflux disease 01-29-2023 Chronic Essential hypertension (9 sources) Hypertensive disorder; Translations: [Essential hypertension] Onset: 11-26-2013 11-26-2013 Chronic Fracture of upper limb (6 sources) Fracture of distal end of radius; Translations: [Unspecified fracture of the lower end of right radius, initial encounter for closed fracture] Episodic Hypertension with complications and secondary hypertension (2 sources) Hypertensive heart failure; Translations: [Hypertensive heart disease with heart failure] Chronic Joint disorders and dislocations; trauma-related (2 sources) Loose body in knee, left knee; Translations: [Derangement of knee] Onset: 06-21-2016 07-03-2016 Chronic Mood disorders (11 sources) Depressive disorder; Translations: [Depression, unspecified] Chronic Nausea and vomiting (1 source) Vomiting Onset: 03-06-2018 Episodic Nutritional deficiencies (4 sources) Vitamin D deficiency; Translations: [Vitamin D deficiency, unspecified] Onset: 08-07-2024 06-28-2023 Chronic Osteoarthritis (1 source) Localized, primary osteoarthritis; Translations: [Unilateral primary osteoarthritis, left knee] Onset: 12-30-2015 01-09-2016 Chronic Osteoporosis (1 source) Age-related osteoporosis without current pathological fracture; Translations: [Age-related osteoporosis without current pathological fracture] Onset: 08-28-2024 Chronic Other aftercare (1 source) long-term (current) use of insulin; Translations: [long-term (current) use of insulin] Onset: 08-07-2024 Episodic Other connective tissue disease (1 source) H/O: arthrodesis; Translations: [Arthrodesis status] Onset: 01-17-2023 Episodic Other fractures (1 source) Closed fracture lumbar vertebra, wedge ; Translations: [Wedge compression fracture of second lumbar vertebra, initial encounter for closed fracture] Episodic Other fractures (10 sources) Burst fracture of lumbar vertebra 01-19-2023 Episodic Comment on above: L2 Other lower respiratory disease (6 sources) Dyspnea on exertion; Translations: [Other forms of dyspnea] 03-11-2020 Episodic Other nutritional; endocrine; and metabolic disorders (2 sources) Obesity; Translations: [Obesity, unspecified] 06-28-2023 Chronic Other nutritional; endocrine; and metabolic disorders (1 source) Obesity, unspecified; Translations: [Obesity, unspecified] 06-28-2023 Chronic Peripheral and visceral atherosclerosis (1 source) Peripheral vascular disease; Translations: [Peripheral vascular disease, unspecified] Onset: 01-07-2014 01-07-2014 Chronic Pulmonary heart disease (6 sources) Pulmonary hypertension; Translations: [Pulmonary hypertension, unspecified] 02-21-2019 Chronic Comment on above: RVSP 31 mmHg Rheumatoid arthritis and related disease (1 source) Ankylosing spondylitis of unspecified sites in spine; Translations: [Ankylosing spondylitis of unspecified sites in spine] Onset: 01-17-2023 Chronic Spondylosis; intervertebral disc disorders; other back problems (1 source) Lumbar spine instability; Translations: [Spinal instabilities, lumbar region] Episodic Substance-related disorders (2 sources) Tobacco dependence in remission; Translations: [Tobacco dependence syndrome] Onset: 11-26-2013 11-12-2014 Chronic Thyroid disorders (16 sources) Hypothyroidism; Translations: [Hypothyroidism, unspecified] Onset: 11-29-2013 11-29-2013 Chronic Unclassified (2 sources) Body mass index (BMI) 33.0-33.9, adult; Translations: [Body mass index (BMI) 37.0-37.9, adult] Onset: 01-07-2014 01-07-2014 Chronic Unclassified (3 sources) Long-term drug therapy; Translations: [Long-term (current) use of other medications] Onset: 01-07-2014 Resolved: 11-25-2014 01-07-2014 Unclassified (1 source) Aftercare ; Translations: [Encounter for other orthopedic aftercare] Onset: 08-10-2016 08-18-2016 Unclassified (1 source) Unknown / UNK(Unknown) Onset: 03-06-2018 Unclassified (10 sources) Atherosclerosis 01-29-2023 Viral infection (12 sources) COVID-19; Translations: [Severe acute respiratory syndrome coronavirus 2 (SARS-CoV-2) detected] Onset: 12-25-2019 02-25-2020 Episodic Past or Other Problems Problem Classification Problem Date Documented Da te Episodic/Chronic Complication of device; implant or graft (3 sources) Complication of internal prosthetic device; Translations: [Displacement of other specified internal prosthetic devices, implants and grafts, initial encounter] Onset: 06-19-2023 Episodic Deficiency and other anemia (1 source) Anemia, unspecified; Translations: [Anemia, unspecified] Onset: 01-17-2023 Episodic Genitourinary symptoms and ill-defined conditions (1 source) Other difficulties with micturition; Translations: [Other difficulties with micturition] Onset: 01-17-2023 Episodic Joint disorders and dislocations; trauma-related (1 [...] unspecified] Onset: 04-30-2015 04-30-2015 Episodic Other aftercare (3 sources) Other manager long term care (current) drug therapy; Translations: [Other manager long term care (current) drug therapy] Onset: 01-17-2023 Episodic Other fractures (2 sources) Stable burst fracture of second lumbar vertebra, initial encounter for closed fracture; Translations: [Stable burst fracture of second lumbar vertebra, initial encounter for closed fracture] Onset: 01-13-2023 Episodic Other non-traumatic joint disorders (1 source) Knee pain; Translations: [Pain in left knee] Onset: 12-30-2015 12-30-2015 Episodic Unclassified (2 sources) Percutaneous transluminal coronary angioplasty ; Translations: [Coronary angioplasty status] Onset: 11-26-2013 Resolved: 11-12-2014 11-12-2014 Results Test Name Value Interpretation Reference Range Facility Endocrinology Visit Reporton 08-07-2024 Endocrinology Visit Report [facility] [address] [place] [address] OFFICE VISIT Date of Service: 08/07/24 MR#: [id number] Acct: [id number] Name: JAMIE WALSH Rep #: [id number] : 1960 Provider: DANISHA barker Age/Sex: 63/F [place] [facility] [place]: Signed Intake Vital Signs 01/17/24 13:26 01/25/24 11:54 08/01/24 07:21 08/07/24 14:35 Height 5 ft 5 ft 5 ft 5 ft Weight: 182 lb 184 lb 8 oz BMI 35.5 36.0 BP 105/65 124/75 H Blood Pressure Location Lt brachial Lt brachial Position Sitting Sitting Respiration 16 Pulse 80 85 Pulse Source Monitor Monitor Pulse Oximetry (%) 95 Oxygen Delivery Method room air Intake Visit Reasons: 6 M FU Chief Complaint: f/u diabetes Is patient in pain?: No Allergies No Known Allergies Allergy (Verified 08/07/24 14:37) Medications ???Medication ???Instructions ???Recorded ???Confirmed ???Type citalopram 20 mg tablet 20 mg PO QHS ANTIDEPRESSANT 08/07/24 History aspirin 81 mg tablet,delayed 81 mg PO DAILY 06/11/17 08/07/24 H istory release omeprazole 20 mg capsule,delayed 20 mg PO DAILY REFLUX 06/11/17 History release cyclobenzaprine 10 mg tablet 10 mg PO QHS 02/08/19 08/07/24 His tory furosemide 20 mg tablet (Lasix) 20 mg PO DAILY 04/04/22 08/07/24 H istory levothyroxine 125 mcg tablet 125 mcg PO QDAY 06/28/23 08/07/24 History metoprolol succinate 50 mg 50 mg PO DAILY 10/11/23 08/07/24 H istory tablet,extended release 24 hr atorvastatin 40 mg tablet 40 mg PO QHS #90 tabs 01/25/24 Rx semaglutide (weight loss) 0.5 0.5 mg (0.5 mL) subcut QWEEK #2 mL 03/07/24 08/07/24 Rx mg/0.5 mL subcutaneous pen injector cholecalciferol (vitamin D3) 50 50 mcg PO QDAY 08/07/24 08/07/24 H istory mcg (2,000 unit) capsule ferrous fumarate 325 mg (106 mg 325 mg PO QDAY 08/07/24 08/07/24 H istory iron) tablet Have you fallen in the past year?: No PFSH Medical History (Updated 08/07/24 @ 15:30 by Dinorah Swift NP-C) Diabetes Fracture of right distal radius COVID-19 virus detected (12/25/19) Chronic diastolic heart failure Obstructive sleep apnea Obesity Depression GERD (gastroesophageal reflux disease) Hypothyroidism Osteoarthritis Essential (primary) hypertension Nicotine dependence in remission Atherosclerosis of coronary artery of comanche heart without angina pectoris Pulmonary hypertension Stage 2 moderate COPD by GOLD classification Hyperlipidemia Other peripheral vascular disease Non-ST elevated myocardial infarction (non-STEMI) (02/08/19) Supraventricular tachycardia Surgical History History of tubal ligation History of left knee replacement (04/17/17) History of coronary artery stent placement (02/10/19) Social History Smoking Status: Former smoker pack-years: 37 Tobacco: How many years used: 37 second hand exposure: No alcohol intake: never substance use type: does not use caffeine: No HPI HPI Chief Complaint: f/u diabetes Details: JAMIE WALSH, is a 63 F who presents to the office today for evaluation and management of diabetes. A1C today is 6.5%, increased slightly from 01/17/24 at 6.3%. She has gained 1 lb since that time. She is enrolled in [facility] clinic trial, she was randomized to a GLP1. Currently taking Ozempic 0.5 mg qweek- tolerating well. Dose has not been increased at this time as she is currently unable to afford medication; she has been obtaining medication via samples. She voices she is not following a strict diabetic diet. She is hypothyroid and taking levothyroxine 125 mcg once daily. Reports following rules of taking LT4. BP is controlled. Currently furosemide 20 mg once daily and metoprolol succ 50 mg once daily. She takes a daily statin. Hx of vitamin D deficiency. She is currently taking vitamin D3 2,000 iu once daily. She is due for labs. Denies any acute concerns. ROS Const Constitutional: No fatigue or weight change ENT ENT: No dizziness/vertigo Cardio Cardiology: No chest pain at rest, chest pain with exertion, shortness of breath or palpitations Skin Skin: No wounds Endo Endocrine: No fatigue or weight change Exam Const General: cooperative, healthy appearing, comfortable and no acute distress Nutritional Appearance: obese Orientation: alert, awake and oriented x3 HENMT Head: normal to inspection Ears: hearing grossly normal bilaterally Nose: external nose normal Face and sinus: normal facial exam Eyes General: appearance normal, both eyes and all related structures Alignment and Position: alignment normal Sclera: sclerae normal Neck Neck: norm (more content not included)... Normal [facility] Cardiology Visit Reporton Cardiology Visit Report [facility] [address] [place] [address]. [address] [place] [address] OFFICE VISIT Date of Service: 08/01/24 MR#: [id number] Acct: [id number] Name: JAMIE WALSH Rep #: [id number] : 1960 Provider: DANISHA cm Age/Sex: 63/F Location[place] [facility] [place] Status: Signed HPI HPI History of Present Illness Details: This is a 63-year-old female who presents here today for a cardiovascular follow-up. She has a history of coronary artery disease with previous stenting to her circumflex in 2013. In January 2019, she was in the hospital for chest discomfort. She was noted to have mildly elevated troponins and she was noted to have stenosis distal to her previous stent. She did undergo stenting of this vessel. Patient enrolled in [facility] trial on 01/10/2024. She was randomized to GLP-1. Her SGLT2 inhibitor was stopped. From a cardiac standpoint, the patient is doing well. She uses a cane to help with ambulation. She denies any palpitations, chest pain, pressure or heaviness. She denies SOB, Orthopnea, and PND. She does not have bleeding issues; no blood in urine, stool, or nosebleeds. She denies any decrease in energy level, myalgias, or claudication. She does not have edema, or sudden weight gain. She denies lightheadedness, dizziness, syncopal or near syncopal episodes, and headaches. Intake Vital Signs 01/25/24 11:54 08/01/24 07:21 Height 5 ft 5 ft Weight: 186 lb BMI 36.3 BP 126/82 H Blood Pressure Location Lt brachial Position Sitting Respiration 18 Pulse 88 Pulse Source Monitor Pulse Oximetry (%) 96 Intake Visit Reasons: 6 M FU Telephone Information Supervisor Required: No Is patient in pain?: No Allergies No Known Allergies Allergy (Verified 08/01/24 15:27) Medications ???Medication ???Instructions ???Recorded ???Confirmed ???Type citalopram 20 mg tablet 20 mg PO QHS ANTIDEPRESSANT 08/01/24 History aspirin 81 mg tablet,delayed 81 mg PO DAILY 06/11/17 08/01/24 H istory release omeprazole 20 mg capsule,delayed 20 mg PO DAILY REFLUX 06/11/17 History release cyclobenzaprine 10 mg tablet 10 mg PO QHS 02/08/19 08/01/24 His tory furosemide 20 mg tablet (Lasix) 20 mg PO DAILY 04/04/22 08/01/24 H istory levothyroxine 125 mcg tablet 125 mcg PO QDAY 06/28/23 08/01/24 History metoprolol succinate 50 mg 50 mg PO DAILY 10/11/23 08/01/24 H istory tablet,extended release 24 hr atorvastatin 40 mg tablet 40 mg PO QHS #90 tabs 01/25/24 Rx semaglutide (weight loss) 0.5 0.5 mg (0.5 mL) subcut QWEEK #2 mL 03/07/24 08/01/24 Rx mg/0.5 mL subcutaneous pen injector Ejection fraction %: 55 Have you fallen in the past year?: No PFSH Medical History Diabetes Fracture of right distal radius COVID-19 virus detected (12/25/19) Chronic diastolic heart failure Obstructive sleep apnea Obesity Depression GERD (gastroesophageal reflux disease) Hypothyroidism Osteoarthritis Essential (primary) hypertension Nicotine dependence in remission Atherosclerosis of coronary artery of comanche heart without angina pectoris Pulmonary hypertension Stage 2 moderate COPD by GOLD classification Hyperlipidemia Other peripheral vascular disease Non-ST elevated myocardial infarction (non-STEMI) (02/08/19) Supraventricular tachycardia Surgical History History of tubal ligation History of left knee replacement (04/17/17) History of coronary artery stent placement (02/10/19) Social History Smoking Status: Former smoker pack-years: 37 Tobacco: How many years used: 37 second hand exposure: No alcohol intake: never substance use type: does not use caffeine: No ROS Const Const: Negative for fatigue, weakness, headache(s) or frequent falls Eyes Eyes: Negative for blurry vision ENT ENT: Negative for headache(s), dizziness or Nosebleed/epistaxis Cardio Chest Pain: No Palpitations: No Edema: None Muscle aches with walking: None Resp Respiratory: Negative for SOB with activity, SOB at rest or SOB orthopnea SOB lying down GI GI: Negative nausea, vomiting, heartburn, bright, red blood in stools or black,tarry stools : Negative for hematuria Neuro Neuro: Negative for dizziness, lightheadedness, near syncope, syncope, frequent falls, headache(s), weakness or blurry vision Endo Endo: Negative for fatigue Cardiology Exam Const Appearance: cooperative, healthy appearing, comfortable and no acute distress Nutritional Appearance: average body habitus, well nourished and obese Orientation: alert, awake and oriented x3 Head Head: normal to inspection Ears: hearing grossly normal b (more content not included)... Normal [facility] Cardiology Visit Reporton Cardiology Visit Report [facility] [address] [place] [address] OFFICE VISIT Date of Service: 01/25/24 MR#: [id number] Acct: [id number] Name: JAMIE WALSH Rep #: [id number] : 1960 Provider: Dr. Seun Blair MD Age/Sex: 63/F Location: [facility] Status: Signed HPI HPI History of Present Illness Details: This is a 63-year-old female that presents here today for a cardiovascular follow-up. She has a history of coronary artery disease with previous stenting to her circumflex in 2013. In January 2019, she was in the hospital for chest discomfort. She was noted to have mildly elevated troponins and she was noted to have stenosis distal to her previous stent. She did undergo stenting of this vessel. Patient enrolled in [facility] trial on 01/10/2024. She was randomized to GLP-1. Her SGLT2 inhibitor was stopped. She denies chest, arm, jaw, or neck discomfort. She denies palpitations. She states bilateral lower extremity edema that improves with Lasix. She denies claudication. She states shortness of b reath with activity. This is not new or worsening. It continues to improve since COVID exposure. She denies shortness of breath at rest, orthopnea, or PND. She denies chronic cough. She denies significant, sudden weight gain. She denies lightheadedness, dizziness, near-syncope, or syncope. She denies blood in urine, blood in stool, or epistaxis. He denies fever or chills. She denies myalgia. She denies fatigue. Her exercise level has remained stable though limited on account of back pain. Intake Vital Signs 10/11/23 10:34 01/17/24 13:26 01/25/24 11:54 Height 5 ft 5 ft 5 ft Weight: 196 lb 183 lb 4 oz 182 lb BMI 38.2 35.8 35.5 BP 127/80 H 126/82 H 105/65 Blood Pressure Location Lt brachial Lt brachial Lt brachial Position Sitting Sitting Sitting Respiration 16 Pulse 71 81 80 Pulse Source Monitor Monitor Monitor Pulse Oximetry (%) 95 92 Oxygen Delivery Method room air room air Intake Visit Reasons: PER [facility] ([facility] TRIAL) Telephone Information Supervisor Required: No Accompanied by: Self Is patient in pain?: No Allergies No Known Allergies Allergy (Verified 01/25/24 11:57) Medications ???Medication ???Instructions ???Recorded ???Confirmed ???Type citalopram 20 mg tablet 20 mg PO QHS ANTIDEPRESSANT 07/11/16 01/25/24 History aspirin 81 mg tablet,delayed 81 mg PO DAILY 06/11/17 01/25/24 History release omeprazole 20 mg capsule,delayed 20 mg PO DAILY REFLUX 06/11/17 01/25/24 History release cyclobenzaprine 10 mg tablet 10 mg PO QHS 02/08/19 01/25/24 History ferrous sulfate 325 mg (65 mg 325 mg PO DAILY 02/08/19 01/25/24 History iron) tablet furosemide 20 mg tablet (Lasix) 20 mg PO DAILY 04/04/22 01/25/24 History levothyroxine 125 mcg tablet 125 mcg PO QDAY 06/28/23 01/25/24 History metoprolol succinate 50 mg 50 mg PO DAILY 10/11/23 01/25/24 History tablet,extended release 24 hr atorvastatin 40 mg tablet 40 mg PO QHS #90 tabs 01/25/24 01/25/24 Rx gabapentin 300 mg capsule 300 mg PO QHS 01/25/24 01/25/24 History semaglutide (weight loss) 0.25 0.25 mg (0.5 mL) subcut QWEEK #2 mL 01/25/24 01/25/24 Rx mg/0.5 mL subcutaneous pen injector (Wegovy) Have you fallen in the past year?: Yes PFSH Medical History Diabetes Fracture of right distal radius COVID-19 virus detected (12/25/19) Chronic diastolic heart failure Obstructive sleep apnea Obesity Depression GERD (gastroesophageal reflux disease) Hypothyroidism Osteoarthritis Essential (primary) hypertension Nicotine dependence in remission Atherosclerosis of coronary artery of comanche heart without angina pectoris Pulmonary hypertension Stage 2 moderate COPD by GOLD classification Hyperlipidemia Other peripheral vascular disease Non-ST elevated myocardial infarction (non-STEMI) (02/08/19) Supraventricular tachycardia Surgical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 [facility] ([place]) Comment on above: Performed By: #### SUSAN SAMUEL, ANEU #### [address] [address] LABORATORYOrdered By: SYSTEM SYSTEM on 06-11-2023 Albumin BCP dye [Mass/Vol] 3.5 G/dL Normal 3.2 - 4.8 G/dL AH ADM SS Albumin/Globulin [Mass ratio] 1.1 {ratio} Normal 0.9 - 1.6 ratio AH ADM SS ALP [Catalytic activity/Vol] 131 U/L High 38 - 126 U/L AH ADM SS ALT No additional P-5'-P [Catalytic activity/Vol] 18 U/L Normal 10 - 49 U/L AH ADM SS AST [Catalytic activity/Vol] 25 U/L Normal 8 - 34 U/L ADM SS Basophils (Bld) [#/Vol] 0.1 103/mcL Normal 0.0 - 0.3 10^3/mcL Workflow SS Basophils/100 WBC (Bld) 1.1 % Normal 0.0 - 2.5 % Workflow SS Bilirubin [Mass/Vol] 0.50 mg/dL Normal 0.20 - 1.20 mg/dL ADM SS Comment on above: Interpretive Data: U se of this assay is not recommended for patients undergoing treatment with eltrombopag due to the potential for falsely elevated results. Calcium [Mass/Vol] 9.2 mg/dL Normal 8.7 - 10. 4 mg/dL ADM SS Chloride [Moles/Vol] 107 mmol/L Normal 98 - 11 0 mEq/L ADM SS CO2 [Moles/Vol] 27 mmol/L Normal 22 - 32 mEq/L ADM SS Creatinine [Mass/Vol] 0.67 mg/dL Normal 0.50 - 1.20 mg/dL ADM SS Electrolyte Balance 4.0 mEq/L Normal 4.0 - 15 .0 mEq/L ADM SS Eosinophils (Bld) [#/Vol] 0.1 103/mcL Normal 0.0 - 0.7 10^3/mcL Workflow SS Eosinophils/100 WBC (Bld) 1.2 % Normal 0.0 - 6.0 % Workflow SS Erythrocyte distribution width (RBC) [Ratio] 14.2 % Normal 11.5 - 15.5 % Workflow SS GFR/1.73 sq M.predicted among blacks MDRD (S/P/Bld) [Vol rate/Area] ml/min/1.73sqm Invalid Interpretation Code Chemistry S Comment on above: Interpretive Data: GFR Population mean for , Non- Americans Ages 20-29 = 116 mL/min/1.73 sq.m. Ages 30-39 = 107 mL/min/1.73 sq.m. Ages 40-49 = 99 mL/min/1.73 sq.m. Ages 50-59 = 93 mL/min/1.73 sq.m. Ages 60-69 = 85 mL/min/1.73 sq.m. Ages 70+ = 75 mL/min/1.73 sq.m. Chronic Kidney Disease: Less than 60 mL/min/1.73 square meters End Stage Renal Disease: Less than 15 mL/min/1.73 square meters GFR/1.73 sq M.predicted among non-blacks MDRD (S/P/Bld) [Vol rate/Area] ml/min/1.73sqm Invalid Interpretation Code Chemistry S Comment on above: Interpretive Data: GFR Population mean for , Non- Americans Ages 20-29 = 116 mL/min/1.73 sq.m. Ages 30-39 = 107 mL/min/1.73 sq.m. Ages 40-49 = 99 mL/min/1.73 sq.m. Ages 50-59 = 93 mL/min/1.73 sq.m. Ages 60-69 = 85 mL/min/1.73 sq.m. Ages 70+ = 75 mL/min/1.73 sq.m. Chronic Kidney Disease: Less than 60 mL/min/1.73 square meters End Stage Renal Disease: Less than 15 mL/min/1.73 square meters Globulin 3.2 G/dL Normal 1.5 - 3.8 G/dL AH ADM SS Glucose [Mass/Vol] 205 mg/dL High 82 - 115 mg/dL AH ADM SS Hematocrit (Bld) [Volume fraction] 35.7 % Normal 34.0 - 46.0 % AH Workflow SS Hemoglobin (Bld) [Mass/Vol] 12.0 G/dL Normal 12.0 - 16.0 G/dL AH Workflow SS Lymphocytes (Bld) [#/Vol] 2.2 103/mcL Normal 0.9 - 4.3 10^3/mcL AH Workflow SS Lymphocytes/100 WBC (Bld) 23.1 % Normal 20.0 - 40.0 % AH Workflow SS MCH (RBC) [Entitic mass] 30.1 pg Normal 27.0 - 33.0 pg AH Workflow SS MCHC 33.7 G/dL Normal 32.0 - 36.0 G/dL AH Workflow SS MCV (RBC) [Entitic vol] 89.3 fL Normal 80.0 - 99.0 fL AH Workflow SS Monocytes (Bld) [#/Vol] 0.6 103/mcL Normal 0.1 - 1.4 10^3/mcL AH Workflow SS Monocytes/100 WBC (Bld) 5.9 % Normal 2.0 - 13.0 % AH Workflow SS Neutrophils (Bld) [#/Vol] 6.6 103/mcL Normal 2.3 - 8.1 10^3/mcL AH Workflow SS Neutrophils/100 WBC (Bld) 68.7 % Normal 50.0 - 75.0 % AH Workflow SS Platelet mean volume (Bld) [Entitic vol] 8.4 fL Normal 6.6 - 10.5 fL AH Workflow SS Platelets (Bld) [#/Vol] 306 103/mcL Normal 150 - 450 10^3/mcL AH Workflow SS Potassium [Moles/Vol] 3.6 mmol/L Normal 3.5 - 5.0 mEq/L AH ADM SS Protein [Mass/Vol] 6.7 G/dL Normal 5.7 - 8.2 G/dL AH ADM SS Comment on above: Interpretive Data: * *Note - New Reference Range in effect 19 RBC (Bld) [#/Vol] 4.00 106/mcL Low 4.10 - 5.3 0 10^6/mcL AH Workflow SS Sodium [Moles/Vol] 138 mmol/L Normal 136 - 145 mEq/L AH ADM SS Urea nitrogen [Mass/Vol] 12.0 mg/dL Normal 8.0 - 22.0 mg/dL AH ADM SS Urea nitrogen/Creatinine [Mass ratio] 17.9 ratio Normal 10.0 - 22.0 ratio AH ADM SS WBC (Bld) [#/Vol] 9.7 103/mcL Normal 4.5 - 10.8 10^3/mcL AH Workflow SS LABORATORYOrdered By: Cristel Loredo on 06-11-2023 Appearance (U) Clear (06/11/23 12:19 PM) Normal Clear AH Auto Urine SS Bilirubin Ql (U) Negative (06/11/23 12:19 PM) Normal Neg-Trace AH Auto Urine SS Color (U) Straw (06/11/23 12:19 PM) Normal AH Auto Urine SS Glucose Test strip (U) [Mass/Vol] Negative Normal Negative AH Auto Urine SS Hemoglobin Auto test strip (U) [Mass/Vol] Negative (06/11/23 12:19 PM) Normal Neg-Trace AH Auto Urine SS Ketones Ql (U) Negative Normal Neg-Trace AH Auto Ur ine SS UA Leuk Est Negative (06/11/23 12:19 PM) Normal Negative AH Auto Urine SS UA Nitrite Negative (06/11/23 12:19 PM) Normal Negative Auto Urine SS UA pH 5.5 (06/11/23 12:19 PM) Normal 5.0 - 8.0 Auto Urine SS UA Protein Negative Normal Negative Auto Urine SS UA Spec Grav 1.010 (06/11/23 12:19 PM) Normal 1.006-1.029 Auto Urine SS UA Specimen Type Clean Catch (06/11/23 12:19 PM) Normal Auto Urine SS UA Urobilinogen 1.0 E.U./dL Normal 0.2-1.0 Auto Urine SS LABORATORYOrdered By: Luis Fernando Farooq on 06-11-2023 aPTT Coag (Bld) [Time] 35.5 s High 25.0 - 35.0 seconds [facility] Comment on above: Interpretive Data: F or Heparin anticoagulation therapy, the recommended therapeutic range is: 54-77 seconds (APTT Correlation with Anti-Xa therapeutic range of 0.3-0.7 units/ml). PLEASE REFERENCE THE PHARMACY PROTOCOL FOR DOSING. Heparin dose (APTT) None Normal Co agulation S PT Coag (PPP) [Time] 12.2 s Normal 9.0 - 1 4.2 seconds [facility] Comment on above: Interpretive Data: E ffective 09/24/07, Protime results may be affected by some antibiotics (i.e. Ciprofloxacin, Azithromycin, Bactrim) which may potentiate the action of oral anticoagulants, with further increases in Protime/INR. PT International Ratio 1.1 ratio Invalid Interpretation Code [facility] Comment on above: Interpretive Data: [employer] (CHEST, 1991, 102:312S-25S) recommended therapeutic range for oral anticoagulant therapy is: LOW RISK: Prophylaxis of venous thrombosis INR: 2.0-3.0 Treatment of pulmonary embolism 2.0-3.0 Prevention of systemic embolism 2.0-3.0 HIGH RISK: Mechanical prosthetic valves 2.5-3.5 PROon 06-11-2023 INR Coag (PPP) [Relative time] 1.1 {INR} Normal [facility] ([place]) Comment on above: Result Comment: [employer] (CHEST, 1991, 102:312S-25S) recommended therapeutic range for oral anticoagulant therapy is: LOW RISK: Prophylaxis of venous thrombosis INR: 2.0-3.0 Treatment of pulmonary embolism 2.0-3.0 Prevention of systemic embolism 2.0-3.0 HIGH RISK: Mechanical prosthetic valves 2.5-3.5 Performed By: #### C SUSAN WINTERS, LEON #### [address] [address] PT Coag (PPP) [Time] 12.2 s Normal 9.0-14.2 [facility] ([place]) Comment on above: Result Comment: Effe ctive 09/24/07, Protime results may be affected by some antibiotics (i.e. Ciprofloxacin, Azithromycin, Bactrim) which may potentiate the action of oral anticoagulants, with further increases in Protime/INR. Performed By: #### C SUSAN WINTERS, LEON #### [address] [address] UAon 06-11-2023 Color (U) Straw Normal [facility] ([place]) Comment on above: Performed By: #### U A #### [place] [address] Glucose (U) [Mass/Vol] Negative Normal Negative [facility] ([place]) Comment on above: Performed By: #### U A #### [place] [id number] Ketones Ql (U) Negative Normal Neg-Trace [facility] ([place]) Comment on above: Performed By: #### U A #### [place] [id number] UA Appear Clear Normal Clear [facility] ([place]) Comment on above: Performed By: #### U A #### [address] [address] UA Blood Negative Normal Neg-Trace [facility] ([place]) Comment on above: Performed By: #### U A #### [address] [address] UA Leuk Est Negative Normal Negative [facility] ([place]) Comment on above: Performed By: #### U A #### [place] [id number] UA Nitrite Negative Normal Negative [facility] ([place]) Comment on above: Performed By: #### U A #### [place] [id number] UA pH 5.5 Normal 5.0 - 8.0 [facility] ([place]) Comment on above: Performed By: #### U A #### [place] [id number] UA Protein Negative Normal Negative [facility] ([place]) Comment on above: Performed By: #### U A #### [place] [address] UA Spec Grav 1.010 Normal 1.006-1.029 [facility] ([place]) Comment on above: Performed By: #### U A #### [place] [address] UA Specimen Type Clean Catch Normal [facility] ([place]) Comment on above: Performed By: #### U A #### [place] [address] UA Urobilinogen 1.0 E.U./dL Normal 0.2-1.0 [facility] ([place]) Comment on above: Performed By: #### U A #### [place] [address] Urobilinogen (U) [Mass/Vol] Negative Normal Neg-Trace [facility] ([place]) Comment on above: Performed By: #### U A #### [place] [address] Serum or plasma thyroid stim ulating hormone (TSH) measurement (units/volume)Ordered By: Dawn Rivera on 05-17-2023 TSH Qn 2.28 uIU/mL 0.358-3.74 [facility] Serum or plasma thyroxine (T 4) measurement (mass/volume)Ordered By: Dawn Rivera on 05-17-2023 T4 [Mass/Vol] 10.8 ug/dL 4.8-13.9 [facility] CT SPINE THORACIC W/O CONTRA STon 05-05-2023 CT SPINE THORACIC W/O CONTRAST ORIGINAL EXAMINATION: CT OF THE THORACIC SPINE WITHOUT CONTRAST 05/03/2023 1:28 pm: TECHNIQUE: CT of the thoracic spine was performed without the administration of intravenous contrast. Multiplanar reformatted images are provided for review. Automated exposure control, iterative reconstruction, and/or weight based adjustment of the mA/kV was utilized to reduce the radiation dose to as low as reasonably achievable. COMPARISON: No direct comparison is available. Correlation with thoracic spine radiographs April 18, 2023. HISTORY: ORDERING SYSTEM PROVIDED HISTORY: Reason for Exam: back pain FINDINGS: BONES/ALIGNMENT: There is normal anterior-posterior alignment of the spine. There is a mild dextroscoliotic curvature of the thoracolumbar spine. Incompletely visualized postsurgical changes are noted status post thoracolumbar posterior spinal fusion with partial visualization of L2 vertebral body compression deformity. Posterior decompressions of L1 and L2 are also visualized. The left transpedicular screw does not appear well-seated within the T12 vertebral body to with mild lucency surrounding, suggestive of loosening. Otherwise, visualized hardware appears intact and unremarkable. The vertebral body heights are maintained. No osseous destructive lesion is seen. DEGENERATIVE CHANGES: Multilevel degenerative changes are appreciated with intervertebral disc space loss, endplate sclerosis, and osteophytosis. No gross spinal canal stenosis or bony neural foraminal narrowing of the thoracic spine. SOFT TISSUES: No paraspinal mass is seen. Postsurgical changes are appreciated within the soft tissues superficial to the operative site. No acute abnormality is appreciated within the included lung hurt and abdomen. IMPRESSION: 1. Partially visualized changes status post thoracolumbar posterior decompression and fusion with incompletely visualized compression deformity at L2. The left T12 transpedicular screw appears loosened and lateralized from the vertebral body. 2. Mild thoracic multilevel degenerative changes without evidence of significant spinal canal or neural foraminal stenosis. Interpreted by: Chase Haider Preliminary Report By: Chase Haider Electronically signed By Chase Haider Dictated Date: 05/05/2023 3:57:40 PM Prelim Date: 05/05/2023 4:19:13 PM Sign Date: 05/05/2023 4:19:13 PM Ordering Provider: NESTOR Dash [facility] ([place]) XR SPINE LUMBAR AP/LAT/FLEX/ EXTon 04-24-2023 XR SPINE LUMBAR AP/LAT/FLEX/EXT ORIGINAL EXAMINATION: AP lateral flexion and extension 4 XRAY VIEWS OF THE LUMBAR SPINE2/09/2023 10:32 am COMPARISON: CT lumbar 02/05/2023 HISTORY: ORDERING SYSTEM PROVIDED HISTORY: Reason for Exam: fracture, FINDINGS: Based on counting from above, the previously described burst fracture is designated at the L2 level. There is stable loss of height at this level with stable retropulsion. Alignment and height of the other lumbar vertebra is within normal limits. Alignment is unchanged with flexion and extension. There is spinal fixation hardware similar to the earlier study. IMPRESSION: Stable loss of height of the L2 burst fracture. No dynamic instability. Interpreted by: Syed Avalos MD Preliminary Report By: Syed Avalos MD Electronically signed By Syed Avalos MD Dictated Date: 04/24/2023 11:07:43 AM Prelim Date: 04/24/2023 11:09:20 AM Sign Date: 04/24/2023 11:09:20 AM Ordering Provider: [facility] ([place]) XR SPINE THORACIC 2 VIEWSon 04-24-2023 XR SPINE THORACIC 2 VIEWS ORIGINAL EXAMINATION: TWO XRAY VIEWS OF THE THORACIC SPINE04/18/2023 10:31 am COMPARISON: CT lumbar 02/05/2023 HISTORY: ORDERING SYSTEM PROVIDED HISTORY: Reason for Exam: fracture, FINDINGS: There is a burst fracture of L2 that is showing moderate compression deformity and loss of height that is similar to the earlier CT. No thoracic vertebral compression deformity or fracture is seen. There are partially included spinal fixation rods and hardware. There are spinal fixation screws at the T11-T12 level. The left-sided screw does not seem to conform to the pedicles, right-sided screw may be in the T12 pedicle. No hardware fracture. IMPRESSION: Stable loss of height of the L2 burst fracture. Spinal fixation hardware, uncertain location of the left-sided screw at the T11-12 level. Interpreted by: Syed Avalos MD Preliminary Report By: Syed Avalos MD Electronically signed By Syed Avalos MD Dictated Date: 04/24/2023 11:02:45 AM Prelim Date: 04/24/2023 11:07:39 AM Sign Date: 04/24/2023 11:07:39 AM Ordering Provider: NESTOR Dash [facility] ([place]) T4 (THYROXINE) TOTALon 02-21 T4 (THYROXINE) TOTAL Normal [facility] Comment on above: Result Comment: THYR OXINE(T4) Performed By: #### 2 [id number] #### [facility],[address] [place] [address] T4 [Mass/Vol] 7.4 ug/dL Normal 4.7 - 13.3 [facility] Comment on above: Performed By: #### 2 [id number] #### [facility],[address] [place] [address] TSHon 02-21-2023 TSH Qn 1.89 m[IU]/L Normal 0.35 - 3.74 [facility] Comment on above: Performed By: #### 2 [id number] #### [facility],[address] [place] [address] CT SPINE LUMBAR W/O CONTRAST on 02-09-2023 CT SPINE LUMBAR W/O CONTRAST ORIGINAL HISTORY: Sciatica COMPARISON: MR 13 January 2023 TECHNIQUE: Axial non-contrast CT of the lumbar spine, with sagittal and coronal reconstruction. This exam was performed according to our departmental dose optimization program, and includes the following measures where applicable: automated exposure control, adjustment of the mAs and/or kVp according to patient size and/or exam, and an iterative reconstruction algorithm. FINDINGS: There are 5 lumbar type vertebral bodies allowing for hypoplastic ribs at T12. There is an incompletely visualized spinal fusion, with L2 and L3 pedicle screws and spinal rods which extend beyond the proximal limit of the examination. There are T12, L1 and L2 laminectomies. There is a mild burst fracture at L1, with less than 50% loss of anterior vertebral body height. There is posterior cortical buckling at the superior endplate, between 25 and 50% of the canal diameter. The T12 body is aligned with the posterior L1 rather than anterior L1 cortex. The remaining lumbar vertebral body heights are maintained. Disc spaces are visualized throughout. The paraspinous tissues are unremarkable in appearance. No stenosis is seen, although evaluation at the level of the fusion is limited. IMPRESSION: Interval spinal fusion and T12-L2 laminectomies. Interpreted by: Julian Laurent MD Preliminary Report By: Julian Laurent MD Electronically signed By Julian Laurent MD Dictated Date: 02/09/2023 3:39:23 PM Prelim Date: 02/09/2023 3:44:36 PM Sign Date: 02/09/2023 3:44:36 PM Ordering Provider: NESTOR Dash [facility] ([place]) URINE CULTURE [CCL]on 2022 Bacteria identified Cx Nom (U) URCUL See Results Below See Below CULTURE, URINE ESCHERICHIA COLI >=100,000 CFU/ml Escherichia coli ORGANISM: ESCHERICHIA COLI ANTIBIOTIC KASSY DILUTN KASSY INTERP Ampicillin <=2 Susceptible Cefazolin <=4 Susceptible For uncomplicated urinary tract infections, cefazolin results can be used to pre Ceftriaxone <=1 Susceptible Cefepime <=1 Susceptible Ertapenem <=0.5 Susceptible Meropenem <=0.25 Susceptible Ampicillin/Sulbact <=2 Susceptible Piperacillin/Tazobac <=4 Susceptible Gentamicin <=1 Susceptible Tobramycin <=1 Susceptible Trimeth sulfameth <=20 Susceptible Ciprofloxacin <=0.25 Susceptible Nitrofurantoin <=16 Susceptible This test was developed and its performance characteristics determined by the [facility] [place] ([facility]). It has not been cleared or approved by the FDA. -[facility] is regulated under CLIA as qualified to perform high-complexity testing. This test is used for clinical purposes. It should not be regarded as investigational or for research. SOURCE: URINE [facility] [address] [place] [id number] Melvin De Anda III, M.D. [id number] SEND TO IC NO Normal [facility] Comment on above: Performed By: #### 2 [id number] #### [facility],[address] [place] [address] URINALYSISon 02-06-2023 Amorphous NONE Normal [facility] Comment on above: Performed By: #### 2 [id number] #### [facility],[address] [place] [address] Bacteria 2+ Normal [facility] Comment on above: Performed By: #### 2 76941 #### [facility],[address] [place] [address] Bilirubin Ql (U) Negative Normal NORMAL: NEGATIVE [facility] Comment on above: Performed By: #### 2 04533 #### [facility],[address] [place] [address] Casts NONE Normal [facility] Comment on above: Performed By: #### 2 19463 #### [facility],[address] [place], [place] [id number] Clarity (U) CLOUDY Abnormal NORMAL: CLEAR [facility] Comment on above: Performed By: #### 2 [id number] #### [facility],[address] [place], [place] [id number] Color (U) yellow Normal NORMAL: YELLOW [facility] Comment on above: Performed By: #### 2 99722 #### [facility],[address] [place] [address] Crystals LM Nom (Urine sed) NONE Normal [facility] Comment on above: Performed By: #### 2 [id number] #### [facility],[address] [place] [address] Epi Cells NONE Normal [facility] Comment on above: Performed By: #### 2 [id number] #### [facility],[address] [place] [address] Glucose Ql (U) NORM Normal NORMAL: NORMAL [facility] Comment on above: Performed By: #### 2 81178 #### [facility],[address] [place] [address] Hemoglobin Ql (U) 50 Abnormal NORMAL: NEGATIVE [facility] Comment on above: Performed By: #### 2 [id number] #### [facility],[address] [place] [address] Ketone 5 Abnormal NORMAL: NEGATIVE [facility] Comment on above: Performed By: #### 2 94689 #### [facility],[address] [place] [address] Leukocytes 500 Abnormal NORMAL: NEGATIVE [facility] Comment on above: Performed By: #### 2 45642 #### [facility],[address] [place] [address] Mucous NONE Normal [facility] Comment on above: Performed By: #### 2 96494 #### [facility],[address] [place] [address] Nitrite Ql (U) Positive Normal NORMAL: NEGATIVE [facility] Comment on above: Performed By: #### 2 57994 #### [facility],[address] [place] [address] pH (U) 6 [pH] Normal NORMAL: 5.0-8.0 [facility] Comment on above: Performed By: #### 2 [id number] #### [facility],[address] [place] [address] Protein Ql (U) 100 Abnormal NORMAL: NEGATIVE [facility] Comment on above: Performed By: #### 2 02705 #### [facility],[address] [place] [address] Rbc NONE Normal 0-3/hpf [facility] Comment on above: Performed By: #### 2 25800 #### [facility],[address] [place] [address] Sp [place] 1.015 Normal NORMAL: 1.010-1.030 [facility] Comment on above: Performed By: #### 2 86015 #### [facility],[address] [place] [address] Specimen Type Feldman Normal [facility] Comment on above: Performed By: #### 2 72900 #### [facility],[address] [place] [address] Urinalysis dipstick W Reflex Microscopic panel (U) SEE BELOW Normal [facility] Comment on above: Result Comment: MICR OSCOPIC Performed By: #### 2 68729 #### [facility],[address],[place] [address] Urobilinog NORM Normal NORMAL: NORMAL [facility] Comment on above: Performed By: #### 2 47381 #### [facility],[address] [place] [address] WBC (U) [#/Vol] /uL Normal 0-5/hpf [facility] Comment on above: Performed By: #### 2 86758 #### [facility],[address] [place] [address] Yeast NONE Normal [facility] Comment on above: Performed By: #### 2 47108 #### [facility],[address] [place] [address] [facility] identified Cx Nom (U) ORGANISM ID: 1 >=100,000 CFU/ml Escherichia coli ORGANISM ID: 1 (ESCHERICHIA COLI) -- ANTIBIOTIC INTERPRETATION KASSY STATUS REFERENCE RANGE -- Ampicillin S <=2 F Susceptible <=8 , Intermediate >8 , Resistant >16 Cefazolin S <=4 F Susceptible 0-16 , Intermediate <0 or >16 , Resistant >16 For uncomplicated urinary tract infections, cefazolin results can be used to predict susceptibility or resistance to cephalexin. Ceftriaxone S <=1 F Susceptible <=1 , Intermediate >1 , Resistant >=4 Cefepime S <=1 F Susceptible <=2 , Susceptible-Dose Dependent >2 , Resistant >=16 Ertapenem S <=0.5 F Susceptible <=0.5 , Intermediate >.5 , Resistant >1 Meropenem S <=0.25 F Susceptible <=1 , Intermediate >1 , Resistant >2 Ampicillin/Sulbact S <=2 F Susceptible <=8 , Intermediate >8 , Resistant >16 Piperacillin/Tazobac S <=4 F Susceptible <=16 , Intermediate >16 , Resistant >64 Gentamicin S <=1 F Susceptible <=4 , Intermediate >4 , Resistant >8 Tobramycin S <=1 F Susceptible <=4 , Intermediate >4 , Resistant >8 Trimeth sulfameth S <=20 F Susceptible <=40 , Resistant >40 Ciprofloxacin S <=0.25 F Susceptible <0.5 , Intermediate >=.5 , Resistant >=1 Nitrofurantoin S <=16 F Susceptible <=32 , Intermediate >32 , Resistant >[address] [facility] Comment on above: Performed By: #### 6 30-4 #### [facility] CLIA [id number] [address] [place] [address] T4-FREE (FREE THYROXINE)on 04-07-2022 Free T4 [Mass/Vol] 1.55 ng/dL High 0.76 - 1.46 [facility] Comment on above: Result Comment: P otential of falsely elevated results when biotin concentrations are > 10 ng/mL. Performed By: #### 2 78297 #### [facility],[address] [place] [address] BMP with eGFRon 01-29-2023 AGE 62 years Normal [facility] Comment on above: Performed By: #### 2 29773 #### [facility],[address] [place] [address] Anion gap [Moles/Vol] 11 mmol/L Normal [facility] Comment on above: Performed By: #### 2 24147 #### [facility],[address] [place] [address] BMP with eGFR Normal [facility] Comment on above: Result Comment: BASI C METABOLIC PANEL Performed By: #### 2 74898 #### [facility],[address] [place] [address] Calcium [Mass/Vol] 8.7 mg/dL Normal 8.5 - 10.[address] [facility] Comment on above: Performed By: #### 2 13882 #### [facility],[address] [place] [address]644 Chloride [Moles/Vol] 98 mmol/L Normal 98 - 107 [facility] Comment on above: Performed By: #### 2 28895 #### [facility],[address] [place] [address]27 CO2 [Moles/Vol] 29.5 mmol/L Normal 21.0 - 32.0 [facility] Comment on above: Performed By: #### 2 94217 #### [facility],[address] [place] [address]681 Creatinine [Mass/Vol] 0.88 mg/dL Normal 0.55 - 1.02 [facility] Comment on above: Performed By: #### 2 53245 #### [facility],[address] [place] [address]36 GFR/1.73 sq M.predicted among non-blacks MDRD (S/P/Bld) [Vol rate/Area] mL/min/{1.73_m2} Normal 60 - 999 [facility] Comment on above: Performed By: #### 2 95676 #### [facility],[address] [place] [address] Result Comment: ACCO RDING TO THE NATIONAL KIDNEY DISEASE EDUCATION PROGRAM(NKDE), A NORMAL eGFR IS A VALUE GREATER THAN OR EQUAL TO 60 ML/MIN/1.73 SQ METERS. CHRONIC KIDNEY DISEASE: <60mL/MIN/1.73 SQ METERS KIDNEY FAILURE: <15mL/MIN/1.73 SQ METERS THIS TEST SHOULD ONLY BE USED FOR PATIENTS 18 YEARS OF AGE AND OLDER. Glucose [Mass/Vol] 205 mg/dL High 74 - [address] [facility] Comment on above: Performed By: #### 2 24338 #### [facility],[address] [place] [address] Potassium [Moles/Vol] 4.0 mmol/L Normal 3.5 - 5.1 [facility] Comment on above: Performed By: #### 2 18809 #### [facility],[address] [place] [address] 29008 Sodium [Moles/Vol] 134 mmol/L Low 136 - [address] [facility] Comment on above: Performed By: #### 2 32750 #### [facility],[address] [place] [address] 25653 Urea nitrogen [Mass/Vol] 16 mg/dL Normal 7 - 18 [facility] Comment on above: Performed By: #### 2 73548 #### [facility],[address] [place] [address] 35500 CBC + DIFFon 01-29-2023 Baso # 0.10 x10EE3/UL Normal 0.00 - 0.10 [facility] Comment on above: Performed By: #### 2 46851 #### [facility],[address] [place] [address] 92404 Basophils/100 WBC (Bld) 1.0 % Normal 0.0 - 2.0 [facility] Comment on above: Performed By: #### 2 14578 #### [facility],[address] [place] [address] 8[address]44 CBC + DIFF Normal [facility] Comment on above: Result Comment: CBC- COMPLETE BLOOD COUNT Performed By: #### 2 75286 #### [facility],[address] [place] [address]295 EO # 0.20 x10EE3/UL Normal 0.00 - 0.50 [facility] Comment on above: Performed By: #### 2 68281 #### [facility],[address] [place] [address] 15085 Eosinophils/100 WBC (Bld) 2.3 % Normal 0.0 - 7.0 [facility] Comment on above: Performed By: #### 2 46422 #### [facility],[address] [place] [address] Erythrocyte distribution width (RBC) [Ratio] 12.9 % Normal 12.0 - 15.6 [facility] Comment on above: Performed By: #### 2 37664 #### [facility],[address] [place] [address] Hematocrit (Bld) [Volume fraction] 29.0 % Low 34.0 - 46.0 [facility] Comment on above: Performed By: #### 2 56828 #### [facility],[address] [place] [address] Hemoglobin (Bld) [Mass/Vol] 9.5 g/dL Low 12.0 - 16.0 [facility] Comment on above: Performed By: #### 2 48212 #### [facility],[address] [place] [address] Lymph # 1.70 x10EE3/UL Normal 0.80 - 2.80 [facility] Comment on above: Performed By: #### 2 96967 #### [facility],[address] [place] [address] Lymphocytes/100 WBC (Bld) 20.9 % Normal 20.0 - 45.0 [facility] Comment on above: Performed By: #### 2 15142 #### [facility],[address] [place], [place] [address] MANUAL DIFF N/A Normal [facility] Comment on above: Performed By: #### 2 23284 #### [facility],[address] [place] [address] MCH (RBC) [Entitic mass] 31 pg Normal 27 - 33 [facility] Comment on above: Performed By: #### 2 76770 #### [place] [address] MCHC 33 X10 3 Normal 32 - 36 [facility] Comment on above: Performed By: #### 2 11061 #### [facility],[address] [place] [address] MCV (RBC) [Entitic vol] 94 fL Normal 80 - 99 [facility] Comment on above: Performed By: #### 2 69672 #### [facility],[address] [place] [address] [place] # 0.60 x10EE3/UL Normal 0.20 - 1.00 [facility] Comment on above: Performed By: #### 2 44348 #### [facility],[address] [place] [address] MONOS % 8.0 % Normal 0.0 - 10.0 [facility] Comment on above: Performed By: #### 2 80790 #### [facility],[address] [place] [address] Morphology Ramiro (Bld) [Interp] N/A Normal [facility] Comment on above: Result Comment: {CD] Performed By: #### 2 33967 #### [facility],[address] [place] [address] Neut # 5.50 x10EE3/UL Normal 1.50 - 7.10 [facility] Comment on above: Performed By: #### 2 70521 #### [facility],[address] [place] [address] Neutrophils/100 WBC (Bld) 67.8 % Normal 46.0 - 76.0 [facility] Comment on above: Performed By: #### 2 76344 #### [facility],[address] [place] [address] PLATELET 507 x10EE3/UL High 150 - 450 [facility] Comment on above: Performed By: #### 2 75229 #### [facility],[address],[place] [address] Platelet mean volume (Bld) [Entitic vol] 8.4 fL Normal 6.6 - 10.5 [facility] Comment on above: Result Comment: AUTO MATED DIFFERENTIAL Performed By: #### 2 12595 #### [facility],[address] [place] [address] 76755 RBC 3.10 x 10EE6/UL Low 4.10 - 5.30 [facility] Comment on above: Performed By: #### 2 00950 #### [facility],[address] [place] [address] 99872 WBC 8.1 x 10EE3/UL Normal 4.5 - 10.8 [facility] Comment on above: Performed By: #### 2 56280 #### [facility],[address] [place] [address] 29133 HEMOGLOBIN A1C (POM)on 01-29 HbA1c (Bld) [Mass fraction] 9.7 % High 0.0 - 6.5 [facility] Comment on above: Result Comment: BLDo HEMOGLOBIN A1C REFERENCE RANGESBLDo Suggested Diagnosis HbA1c(%) HbA1C (mmol/mol Diabetic >/=6.5 >/=48 Prediabetes 5.7 - 6.4 39 - 47 Normal <5.7 <39 Performed By: #### 2 89489 #### [facility],[address] [place] [address] 25581 LIPID PROFILEon 01-29-2023 Cholesterol [Mass/Vol] 128 mg/dL Normal 0 - 240 [facility] Comment on above: Performed By: #### 2 22497 #### [facility],[address] [place] [address] 16638 Cholesterol in HDL [Mass/Vol] 45 mg/dL Normal 40 - 60 [facility] Comment on above: Performed By: #### 2 28625 #### [facility],[address] [place] [address] 49786 Cholesterol in LDL [Mass/Vol] 60 mg/dL Normal 0 - 129 [facility] Comment on above: Performed By: #### 2 54914 #### [facility],[address] [place] [address]1938 Cholesterol.total/Ch olesterol in HDL [Mass ratio] 2.8 {ratio} Normal 0.0 - 5.0 [facility] Comment on above: Performed By: #### 2 02318 #### [facility],[address] [place] [address] 88888 [address]id [address] [facility] Comment on above: Result Comment: LIPI D PROFILE Performed By: #### 2 14089 #### [facility],[address] [place], [place] [address] Triglyceride [Mass/Vol] 116 mg/dL Normal 0 - 150 [facility] Comment on above: Performed By: #### 2 58658 #### [facility],[address] [place], [place] [address] TSHon 01-29-2023 TSH Qn 13.42 m[IU]/L High 0.35 - 3.74 [facility] Comment on above: Performed By: #### 2 51103 #### [facility],[address] [place], [place] [address] .Auto Diffon 01-17-2023 Basophil, Absolute 0.0 10 3/mcL Normal 0.0-0.3 [facility] ([place]) Comment on above: Performed By: #### SVITLANA HARRIS #### [address] [address] Basophils/100 WBC (Bld) 0.4 % Normal 0.0-2.5 [facility] ([place]) Comment on above: Performed By: #### SVITLANA HARRIS #### [facility] [address] [place] [address] Eosinophil, Absolute 0.2 10 3/mcL Normal 0.0-0.7 [facility] ([place]) Comment on above: Performed By: #### SVITLANA HARRIS #### [address] [address] Eosinophils/100 WBC (Bld) 2.3 % Normal 0.0-6.0 [facility] ([place]) Comment on above: Performed By: #### U AMIC, UA #### [address] [address] Lymphocyte, Absolute 1.8 10 3/mcL Normal 0.9-4.3 [facility] ([place]) Comment on above: Performed By: #### U AMIC, UA #### [address] [address] Lymphocytes/100 WBC (Bld) 22.3 % Normal 20.0-40.0 [facility] ([place]) Comment on above: Performed By: #### U AMIC, UA #### [address] [address] Monocyte, Absolute 0.7 10 3/mcL Normal 0.1-1.4 [facility] ([place]) Comment on above: Performed By: #### U AMIC, UA #### [address] [address] Monocytes/100 WBC (Bld) 8.4 % Normal 2.0-13.0 [facility] ([place]) Comment on above: Performed By: #### U AMIC, UA #### [address] [address] Neutrophils/100 WBC (Bld) 66.6 % Normal 50.0-75.0 [facility] ([place]) Comment on above: Performed By: #### U AMIC, UA #### [address] [address] .GFRon 01-17-2023 GFR >60 Normal [facility] ([place]) Comment on above: Result Comment: GFR Population mean for , Non- Americans Ages 20-29 = 116 mL/min/1.73 sq.m. Ages 30-39 = 107 mL/min/1.73 sq.m. Ages 40-49 = 99 mL/min/1.73 sq.m. Ages 50-59 = 93 mL/min/1.73 sq.m. Ages 60-69 = 85 mL/min/1.73 sq.m. Ages 70+ = 75 mL/min/1.73 sq.m. Chronic Kidney Disease: Less than 60 mL/min/1.73 square meters End Stage Renal Disease: Less than 15 mL/min/1.73 square meters Performed By: #### U A #### [address] [address] GFR Non- 53 ml/min/1.73sqm Normal [facility] ([place]) Comment on above: Result Comment: GFR Population mean for , Non- Americans Ages 20-29 = 116 mL/min/1.73 sq.m. Ages 30-39 = 107 mL/min/1.73 sq.m. Ages 40-49 = 99 mL/min/1.73 sq.m. Ages 50-59 = 93 mL/min/1.73 sq.m. Ages 60-69 = 85 mL/min/1.73 sq.m. Ages 70+ = 75 mL/min/1.73 sq.m. Chronic Kidney Disease: Less than 60 mL/min/1.73 square meters End Stage Renal Disease: Less than 15 mL/min/1.73 square meters Performed By: #### U A #### [address] [address] .NEUABSon 01-17-2023 Neutrophil, Absolute 5.3 10 3/mcL Normal 2.3-8.1 [facility] ([place]) Comment on above: Performed By: #### U CONSUELO UA #### [address] [address] A1Con 01-17-2023 HbA1c (Bld) [Mass fraction] 10.4 % High 4.0-6.0 [facility] ([place]) Comment on above: Performed By: #### U AMIC UA #### [address] [address] BMPon 01-17-2023 BUN/Creatinine Ratio 13.3 ratio Normal 10.0-22.0 [facility] ([place]) Comment on above: Performed By: #### U A #### [address] [address] Calcium [Mass/Vol] 7.6 mg/dL Low 8.7-10.4 [facility] ([place]) Comment on above: Performed By: #### U A #### [address] [address] Chloride [Moles/Vol] 109 mmol/L Normal 98-110 [facility] ([place]) Comment on above: Performed By: #### U A #### [address] [address] CO2 [Moles/Vol] 24 mmol/L Normal 22-32 [facility] ([place]) Comment on above: Performed By: #### U A #### [address] [address] Creatinine [Mass/Vol] 1.05 mg/dL Normal 0.50-1.20 [facility] ([place]) Comment on above: Performed By: #### U A #### [address] [address] Electrolyte Balance 10.0 mEq/L Normal 4.0-15.0 [facility] ([place]) Comment on above: Performed By: #### U A #### [address] [address] Glucose [Mass/Vol] 192 mg/dL High 82-115 [facility] ([place]) Comment on above: Performed By: #### U A #### [address] [address] Potassium [Moles/Vol] 4.5 mmol/L Normal 3.5-5.0 [facility] ([place]) Comment on above: Performed By: #### U A #### [address] [address] Sodium [Moles/Vol] 143 mmol/L Normal 136-145 [facility] ([place]) Comment on above: Performed By: #### U A #### [address] [address] Urea nitrogen [Mass/Vol] 14.0 mg/dL Normal 8.0-22.0 [facility] ([place]) Comment on above: Performed By: #### U A #### [address] [address] CBCon 01-17-2023 Erythrocyte distribution width (RBC) [Ratio] 13.0 % Normal 11.5-15.5 [facility] ([place]) Comment on above: Performed By: #### U AMIC, UA #### [place] [id number] Hematocrit (Bld) [Volume fraction] 27.8 % Low 34.0-46.0 [facility] ([place]) Comment on above: Performed By: #### U AMIC, UA #### [place] [id number] Hgb 9.2 G/dL Low 12.0-16.0 [facility] ([place]) Comment on above: Performed By: #### U AMIC, UA #### [place] [address] MCH (RBC) [Entitic mass] 31.9 pg Normal 27.0-33.0 [facility] ([place]) Comment on above: Performed By: #### U AMIC, UA #### [place] [address] MCHC 33.2 G/dL Normal 32.0-36.0 [facility] ([place]) Comment on above: Performed By: #### U AMIC, UA #### [place] [id number] MCV (RBC) [Entitic vol] 96.2 fL Normal 80.0-99.0 [facility] ([place]) Comment on above: Performed By: #### U AMIC, UA #### [place] [id number] Platelet 225 10 3/mcL Normal 150-450 [facility] ([place]) Comment on above: Performed By: #### U AMIC, UA #### [place] [id number] Platelet mean volume (Bld) [Entitic vol] 9.0 fL Normal 6.6-10.5 [facility] ([place]) Comment on above: Performed By: #### U AMIC, UA #### [facility] [address] [place] [address] RBC 2.89 10 6/mcL Low 4.10-5.30 [facility] ([place]) Comment on above: Performed By: #### U AMIC, UA #### [facility] [address] [place] [address]19 WBC 8.0 10 3/mcL Normal 4.5-10.8 [facility] ([place]) Comment on above: Performed By: #### U AMIC, UA #### [facility] [address] [place] [address] LABORATORYOrdered By: Darby be on 01-17-2023 LDose Vancomycin:(trough) Unknown (01/17/23 11:07 AM) Invalid Interpretation Code Chemistry S LABORATORYOrdered By: SYSTEM SYSTEM on 01-17-2023 Vancomycin trough [Mass/Vol] 17.1 ug/mL Invalid Interpretation Code 5.0 - 20.0 mcg/mL ADM SS Basophils (Bld) [#/Vol] 0.0 103/mcL Invalid Interpretation Code 0.0 - 0.3 10^3/mcL Workflow SS Basophils/100 WBC (Bld) 0.4 % Invalid Interpretation Code 0.0 - 2.5 % Workflow SS Calcium [Mass/Vol] 7.6 mg/dL Invalid Interpretation Code 8.7 - 10.4 mg/dL ADM SS Chloride [Moles/Vol] 109 mmol/L Invalid Interpretation Code 98 - 110 mEq/L ADM SS CO2 [Moles/Vol] 24 mmol/L Invalid Interpretation Code 22 - 32 mEq/L ADM SS Creatinine [Mass/Vol] 1.05 mg/dL Invalid Interpretation Code 0.50 - 1.20 mg/dL ADM SS Electrolyte Balance 10.0 mEq/L Invalid Interpretation Code 4.0 - 15.0 mEq/L ADM SS Eosinophils (Bld) [#/Vol] 0.2 103/mcL Invalid Interpretation Code 0.0 - 0.7 10^3/mcL Workflow SS Eosinophils/100 WBC (Bld) 2.3 % Invalid Interpretation Code 0.0 - 6.0 % Workflow SS Erythrocyte distribution width (RBC) [Ratio] 13.0 % Invalid Interpretation Code 11.5 - 15.5 % Workflow SS GFR/1.73 sq M.predicted among blacks MDRD (S/P/Bld) [Vol rate/Area] ml/min/1.73sqm Invalid Interpretation Code innRoad Chemistry S Comment on above: Interpretive Data: GFR Population mean for , Non- Americans Ages 20-29 = 116 mL/min/1.73 sq.m. Ages 30-39 = 107 mL/min/1.73 sq.m. Ages 40-49 = 99 mL/min/1.73 sq.m. Ages 50-59 = 93 mL/min/1.73 sq.m. Ages 60-69 = 85 mL/min/1.73 sq.m. Ages 70+ = 75 mL/min/1.73 sq.m. Chronic Kidney Disease: Less than 60 mL/min/1.73 square meters End Stage Renal Disease: Less than 15 mL/min/1.73 square meters GFR/1.73 sq M.predicted among non-blacks MDRD (S/P/Bld) [Vol rate/Area] 53 ml/min/1.73sqm Invalid Interpretation Code innRoad Chemistry S Comment on above: Interpretive Data: GFR Population mean for , Non- Americans Ages 20-29 = 116 mL/min/1.73 sq.m. Ages 30-39 = 107 mL/min/1.73 sq.m. Ages 40-49 = 99 mL/min/1.73 sq.m. Ages 50-59 = 93 mL/min/1.73 sq.m. Ages 60-69 = 85 mL/min/1.73 sq.m. Ages 70+ = 75 mL/min/1.73 sq.m. Chronic Kidney Disease: Less than 60 mL/min/1.73 square meters End Stage Renal Disease: Less than 15 mL/min/1.73 square meters Glucose [Mass/Vol] 192 mg/dL Invalid Interpretation Code 82 - 115 mg/dL ADM SS HbA1c (Bld) [Mass fraction] 10.4 % Invalid Interpretation Code 4.0 - 6.0 % Auto Chem SS Hematocrit (Bld) [Volume fraction] 27.8 % Invalid Interpretation Code 34.0 - 46.0 % Workflow SS Hemoglobin (Bld) [Mass/Vol] 9.2 G/dL Invalid Interpretation Code 12.0 - 16.0 G/dL AH Workflow SS Lymphocytes (Bld) [#/Vol] 1.8 103/mcL Invalid Interpretation Code 0.9 - 4.3 10^3/mcL AH Workflow SS Lymphocytes/100 WBC (Bld) 22.3 % Invalid Interpretation Code 20.0 - 40.0 % AH Workflow SS MCH (RBC) [Entitic mass] 31.9 pg Invalid Interpretation Code 27.0 - 33.0 pg AH Workflow SS MCHC 33.2 G/dL Invalid Interpretation Code 32.0 - 36.0 G/dL AH Workflow SS MCV (RBC) [Entitic vol] 96.2 fL Invalid Interpretation Code 80.0 - 99.0 fL AH Workflow SS Monocytes (Bld) [#/Vol] 0.7 103/mcL Invalid Interpretation Code 0.1 - 1.4 10^3/mcL AH Workflow SS Monocytes/100 WBC (Bld) 8.4 % Invalid Interpretation Code 2.0 - 13.0 % AH Workflow SS Neutrophils (Bld) [#/Vol] 5.3 103/mcL Invalid Interpretation Code 2.3 - 8.1 10^3/mcL AH Workflow SS Neutrophils/100 WBC (Bld) 66.6 % Invalid Interpretation Code 50.0 - 75.0 % AH Workflow SS Platelet mean volume (Bld) [Entitic vol] 9.0 fL Invalid Interpretation Code 6.6 - 10.5 fL AH Workflow SS Platelets (Bld) [#/Vol] 225 103/mcL Invalid Interpretation Code 150 - 450 10^3/mcL AH Workflow SS Potassium [Moles/Vol] 4.5 mmol/L Invalid Interpretation Code 3.5 - 5.0 mEq/L AH ADM SS RBC (Bld) [#/Vol] 2.89 106/mcL Invalid Interpretation Code 4.10 - 5.30 10^6/mcL AH Workflow SS Sodium [Moles/Vol] 143 mmol/L Invalid Interpretation Code 136 - 145 mEq/L AH ADM SS Urea nitrogen [Mass/Vol] 14.0 mg/dL Invalid Interpretation Code 8.0 - 22.0 mg/dL AH ADM SS Urea nitrogen/Creatinine [Mass ratio] 13.3 ratio Invalid Interpretation Code 10.0 - 22.0 ratio AH ADM SS WBC (Bld) [#/Vol] 8.0 103/mcL Invalid Interpretation Code 4.5 - 10.8 10^3/mcL AH Workflow SS LABORATORYOrdered By: Anna Piña on 01-17-2023 Glucose [Mass/Vol] 191 mg/dL Invalid Interpretation Code 82 - 115 mg/dL [facility] LABORATORYOrdered By: Fariha Colmenares on 01-17-2023 Blood Glucose Testing Reason Routine (01/17/23 7:31 AM) [facility] Glucose [Mass/Vol] 191 mg/dL Invalid Interpretation Code 82 - 115 mg/dL [facility] UAMICon 01-17-2023 UA Bacteria 1+ /hpf Abnormal Negative [facility] ([place]) Comment on above: Performed By: #### U AMIC, UA #### [address] [address] UA Mucous 2+ /hpf Normal [facility] ([place]) Comment on above: Performed By: #### U AMIC, UA #### [address] [address] UA RBC Negative Normal 0-2 [facility] ([place]) Comment on above: Performed By: #### U AMIC, UA #### [address] [address] UA Squam Epithelial 5-10 Normal 0-20 [facility] ([place]) Comment on above: Performed By: #### U AMIC, UA #### [address] [address] UA Transitional Epithelial 0-2 Normal [facility] ([place]) Comment on above: Performed By: #### U AMIC, UA #### [address] [address] UA Uric Ac Crystals Trace Normal [facility] ([place]) Comment on above: Performed By: #### U AMIC, UA #### [address] [address] UA WBC 3-5 Normal 0-5 [facility] ([place]) Comment on above: Performed By: #### U AMIC, UA #### [address] [address] UA Yeast 4+ /hpf Abnormal [facility] ([place]) Comment on above: Performed By: #### U AMIC, UA #### [address] [address] [facility] LDose Vancomycin:(trough) Unknown Normal [facility] ([place]) Comment on above: Performed By: #### U A #### [place] [id number] Vancomycin Tr 17.1 mcg/mL Normal 5.0-20.0 [facility] ([place]) Comment on above: Performed By: #### U A #### [address] [address] .GFRon 01-16-2023 GFR >60 Normal [facility] ([place]) Comment on above: Result Comment: GFR Population mean for , Non- Americans Ages 20-29 = 116 mL/min/1.73 sq.m. Ages 30-39 = 107 mL/min/1.73 sq.m. Ages 40-49 = 99 mL/min/1.73 sq.m. Ages 50-59 = 93 mL/min/1.73 sq.m. Ages 60-69 = 85 mL/min/1.73 sq.m. Ages 70+ = 75 mL/min/1.73 sq.m. Chronic Kidney Disease: Less than 60 mL/min/1.73 square meters End Stage Renal Disease: Less than 15 mL/min/1.73 square meters Performed By: #### U A #### [place] [id number] GFR Non- 60 ml/min/1.73sqm Normal [facility] ([place]) Comment on above: Result Comment: GFR Population mean for , Non- Americans Ages 20-29 = 116 mL/min/1.73 sq.m. Ages 30-39 = 107 mL/min/1.73 sq.m. Ages 40-49 = 99 mL/min/1.73 sq.m. Ages 50-59 = 93 mL/min/1.73 sq.m. Ages 60-69 = 85 mL/min/1.73 sq.m. Ages 70+ = 75 mL/min/1.73 sq.m. Chronic Kidney Disease: Less than 60 mL/min/1.73 square meters End Stage Renal Disease: Less than 15 mL/min/1.73 square meters Performed By: #### U A #### [place] [id number] BUNon 01-16-2023 Urea nitrogen [Mass/Vol] 16.0 mg/dL Normal 8.0-22.0 [facility] ([place]) Comment on above: Performed By: #### U A #### [place] [address] CREon 01-16-2023 Creatinine [Mass/Vol] 0.94 mg/dL Normal 0.50-1.20 [facility] ([place]) Comment on above: Performed By: #### U A #### [place] [address] LABORATORYOrdered By: Samina Burris on 01-16-2023 Appearance (U) Cloudy *ABN* (01/16/23 9:47 PM) Invalid Interpretation Code Clear Auto Urine SS Bacteria LM.HPF (Urine sed) [#/Area] 1 /[HPF] Invalid Interpretation Code Negative Auto Urine SS Bilirubin Ql (U) Negative (01/16/23 9:47 PM) Invalid Interpretation Code Neg-Trace AH Auto Urine SS Color (U) Yellow (01/16/23 9:47 PM) Invalid Interpretation Code Auto Urine SS Glucose Test strip (U) [Mass/Vol] 100 mg/dL Invalid Interpretation Code Negative AH Auto Urine SS Hemoglobin Auto test strip (U) [Mass/Vol] Negative (01/16/23 9:47 PM) Invalid Interpretation Code Neg-Trace AH Auto Urine SS Ketones Ql (U) Negative Invalid Interpretation Code Neg-Trace AH Auto Urine SS UA Leuk Est Moderate *ABN* (01/16/23 9:47 PM) Invalid Interpretation Code Negative AH Auto Urine SS UA Mucous 2+ /HPF Invalid Interpretation Code Auto Urine SS UA Nitrite Negative (01/16/23 9:47 PM) Invalid Interpretation Code Negative AH Auto Urine SS UA pH 5.5 (01/16/23 9:47 PM) Invalid Interpretation Code 5.0 - 8.0 AH Auto Urine SS UA Protein Trace mg/dL Invalid Interpretation Code Negative AH Auto Urine SS UA RBC Negative Invalid Interpretation Code 0-2 AH Auto Urine SS UA Spec Grav 1.015 (01/16/23 9:47 PM) Invalid Interpretation Code 1.006-1.029 AH Auto Urine SS UA Specimen Type Clean Catch (01/16/23 9:47 PM) Invalid Interpretation Code AH Auto Urine SS UA Squam Epithelial 5-10 /HPF Invalid Interpretation Code 0-20 AH Auto Urine SS UA Transitional Epithelial 0-2 /HPF Invalid Interpretation Code AH Auto Urine SS UA Uric Ac Crystals Trace /HPF Invalid Interpretation Code AH Auto Urine SS UA Urobilinogen 0.2 E.U./dL Invalid Interpretation Code 0.2-1.0 AH Auto Urine SS WBC LM.HPF (Urine sed) [#/Area] 3-5 /HPF Invalid Interpretation Code 0-5 AH Auto Urine SS Yeast LM.HPF (Urine sed) [#/Area] 4 /[HPF] Invalid Interpretation Code Auto Urine SS LABORATORYOrdered By: Chase reece on 01-16-2023 Glucose [Mass/Vol] 201 mg/dL Invalid Interpretation Code 82 - 115 mg/dL [facility] LABORATORYOrdered By: Fariha Colmenares on 01-16-2023 Blood Glucose Testing Reason Routine (01/16/23 11:30 AM) [facility] LABORATORYOrdered By: Mandeep Montes on 01-16-2023 Blood Glucose Testing Reason Routine (01/16/23 8:32 AM) [facility] LABORATORYOrdered By: SYSTEM SYSTEM on 01-16-2023 Creatinine [Mass/Vol] 0.94 mg/dL Invalid Interpretation Code 0.50 - 1.20 mg/dL AH ADM SS GFR/1.73 sq M.predicted among blacks MDRD (S/P/Bld) [Vol rate/Area] ml/min/1.73sqm Invalid Interpretation Code Chemistry S Comment on above: Interpretive Data: GFR Population mean for , Non- Americans Ages 20-29 = 116 mL/min/1.73 sq.m. Ages 30-39 = 107 mL/min/1.73 sq.m. Ages 40-49 = 99 mL/min/1.73 sq.m. Ages 50-59 = 93 mL/min/1.73 sq.m. Ages 60-69 = 85 mL/min/1.73 sq.m. Ages 70+ = 75 mL/min/1.73 sq.m. Chronic Kidney Disease: Less than 60 mL/min/1.73 square meters End Stage Renal Disease: Less than 15 mL/min/1.73 square meters GFR/1.73 sq M.predicted among non-blacks MDRD (S/P/Bld) [Vol rate/Area] 60 ml/min/1.73sqm Invalid Interpretation Code Chemistry S Comment on above: Interpretive Data: GFR Population mean for , Non- Americans Ages 20-29 = 116 mL/min/1.73 sq.m. Ages 30-39 = 107 mL/min/1.73 sq.m. Ages 40-49 = 99 mL/min/1.73 sq.m. Ages 50-59 = 93 mL/min/1.73 sq.m. Ages 60-69 = 85 mL/min/1.73 sq.m. Ages 70+ = 75 mL/min/1.73 sq.m. Chronic Kidney Disease: Less than 60 mL/min/1.73 square meters End Stage Renal Disease: Less than 15 mL/min/1.73 square meters Urea nitrogen [Mass/Vol] 16.0 mg/dL Invalid Interpretation Code 8.0 - 22.0 mg/dL ADM SS Vancomycin [Mass/Vol] 19.4 mcg/mL Invalid Interpretation Code ADM SS LABORATORYOrdered By: Darby be on 01-16-2023 LDose Vancomycin: (random) See eMAR (01/16/23 3:30 AM) Invalid Interpretation Code Chemistry S UAon 01-16-2023 Color (U) Yellow Normal [facility] ([place]) Comment on above: Performed By: #### U AMIC, UA #### [address] [address] Glucose (U) [Mass/Vol] 100 mg/dL Abnormal Negative [facility] ([place]) Comment on above: Performed By: #### U AMIC, UA #### [address] [address] Ketones Ql (U) Negative Normal Neg-Trace [facility] ([place]) Comment on above: Performed By: #### U AMIC, UA #### [place] [address] UA Appear Cloudy Abnormal Clear [facility] ([place]) Comment on above: Performed By: #### U AMIC, UA #### [place] [address] UA Blood Negative Normal Neg-Trace [facility] ([place]) Comment on above: Performed By: #### U AMIC, UA #### [place] [address] UA Leuk Est Moderate Abnormal Negative [facility] ([place]) Comment on above: Performed By: #### U AMIC, UA #### [place] [address] UA Nitrite Negative Normal Negative [facility] ([place]) Comment on above: Performed By: #### U AMIC, UA #### [place] [address] UA pH 5.5 Normal 5.0 - 8.0 [facility] ([place]) Comment on above: Performed By: #### U AMIC, UA #### [place] [address] UA Protein Trace Normal Negative [facility] ([place]) Comment on above: Performed By: #### U AMIC, UA #### [place] [address] UA Spec Grav 1.015 Normal 1.006-1.029 [facility] ([place]) Comment on above: Performed By: #### U AMIC, UA #### [place] [address] UA Specimen Type Clean Catch Normal [facility] ([place]) Comment on above: Performed By: #### U AMIC, UA #### [place] [address] UA Urobilinogen 0.2 E.U./dL Normal 0.2-1.0 [facility] ([place]) Comment on above: Performed By: #### U AMIC, UA #### [address] [address] Urobilinogen (U) [Mass/Vol] Negative Normal Neg-Trace [facility] ([place]) Comment on above: Performed By: #### U AMIC, UA #### [place] [address] VANCRon 01-16-2023 LDose Vancomycin: (random) See eMAR Normal [facility] ([place]) Comment on above: Performed By: #### U A #### [place] [address] Vancomycin Lvl (random) 19.4 mcg/mL Normal [facility] ([place]) Comment on above: Performed By: #### U A #### [place] [address] .Auto Diffon 01-15-2023 Basophil, Absolute 0.0 10 3/mcL Normal 0.0-0.3 [facility] ([place]) Comment on above: Performed By: #### U AMIC, UA #### [place] [address] Basophils/100 WBC (Bld) 0.4 % Normal 0.0-2.5 [facility] ([place]) Comment on above: Performed By: #### U AMIC, UA #### [place] [address] Eosinophil, Absolute 0.0 10 3/mcL Normal 0.0-0.7 [facility] ([place]) Comment on above: Performed By: #### U AMIC, UA #### [place] [id number] Eosinophils/100 WBC (Bld) 0.1 % Normal 0.0-6.0 [facility] ([place]) Comment on above: Performed By: #### U AMIC, UA #### [place] [id number] Lymphocyte, Absolute 1.8 10 3/mcL Normal 0.9-4.3 [facility] ([place]) Comment on above: Performed By: #### U AMIC, UA #### [address] [place], [place] [address] Lymphocytes/100 WBC (Bld) 17.0 % Low 20.0-40.0 [facility] ([place]) Comment on above: Performed By: #### U AMIC, UA #### [facility] [address] [place] [address] Monocyte, Absolute 0.9 10 3/mcL Normal 0.1-1.4 [facility] ([place]) Comment on above: Performed By: #### U AMIC, UA #### [place] [id number] [place] [address] Monocytes/100 WBC (Bld) 8.4 % Normal 2.0-13.0 [facility] ([place]) Comment on above: Performed By: #### U AMIC, UA #### [address] [address] Neutrophils/100 WBC (Bld) 74.1 % Normal 50.0-75.0 [facility] ([place]) Comment on above: Performed By: #### U AMIC, UA #### [address] [address] .GFRon 01-15-2023 GFR >60 Normal [facility] ([place]) Comment on above: Result Comment: GFR Population mean for , Non- Americans Ages 20-29 = 116 mL/min/1.73 sq.m. Ages 30-39 = 107 mL/min/1.73 sq.m. Ages 40-49 = 99 mL/min/1.73 sq.m. Ages 50-59 = 93 mL/min/1.73 sq.m. Ages 60-69 = 85 mL/min/1.73 sq.m. Ages 70+ = 75 mL/min/1.73 sq.m. Chronic Kidney Disease: Less than 60 mL/min/1.73 square meters End Stage Renal Disease: Less than 15 mL/min/1.73 square meters Performed By: #### U AMIC, UA #### [facility] [address] [place] [address] GFR Non- >60 Normal [facility] ([place]) Comment on above: Result Comment: GFR Population mean for , Non- Americans Ages 20-29 = 116 mL/min/1.73 sq.m. Ages 30-39 = 107 mL/min/1.73 sq.m. Ages 40-49 = 99 mL/min/1.73 sq.m. Ages 50-59 = 93 mL/min/1.73 sq.m. Ages 60-69 = 85 mL/min/1.73 sq.m. Ages 70+ = 75 mL/min/1.73 sq.m. Chronic Kidney Disease: Less than 60 mL/min/1.73 square meters End Stage Renal Disease: Less than 15 mL/min/1.73 square meters Performed By: #### U AMIC, UA #### [address] [address] .NEUABSon 01-15-2023 Neutrophil, Absolute 7.7 10 3/mcL Normal 2.3-8.1 [facility] ([place]) Comment on above: Performed By: #### U AMIC UA #### [address] [address] BMPon 01-15-2023 BUN/Creatinine Ratio 20.9 ratio Normal 10.0-22.0 [facility] ([place]) Comment on above: Performed By: #### U AMIC UA #### [address] [address] Calcium [Mass/Vol] 7.6 mg/dL Low 8.7-10.4 [facility] ([place]) Comment on above: Performed By: #### U AMIC, UA #### [address] [address] Chloride [Moles/Vol] 108 mmol/L Normal 98-110 [facility] ([place]) Comment on above: Performed By: #### U AMIC, UA #### [address] [address] CO2 [Moles/Vol] 25 mmol/L Normal 22-32 [facility] ([place]) Comment on above: Performed By: #### U AMIC, UA #### [address] [address] Creatinine [Mass/Vol] 0.86 mg/dL Normal 0.50-1.20 [facility] ([place]) Comment on above: Performed By: #### U AMIC, UA #### [address] [address] Electrolyte Balance 7.0 mEq/L Normal 4.0-15.0 [facility] ([place]) Comment on above: Performed By: #### U AMIC, UA #### [address] [address] Glucose [Mass/Vol] 158 mg/dL High 82-115 [facility] ([place]) Comment on above: Performed By: #### U AMIC, UA #### [address] [address] Potassium [Moles/Vol] 3.8 mmol/L Normal 3.5-5.0 [facility] ([place]) Comment on above: Result Comment: Spec imen slightly hemolyzed. Performed By: #### U AMIC, UA #### [place] [phone] Sodium [Moles/Vol] 140 mmol/L Normal 136-145 [facility] ([place]) Comment on above: Performed By: #### U AMIC, UA #### [address] [address] Urea nitrogen [Mass/Vol] 18.0 mg/dL Normal 8.0-22.0 [facility] ([place]) Comment on above: Performed By: #### U AMIC, UA #### [address] [address] CBCon 01-15-2023 Erythrocyte distribution width (RBC) [Ratio] 12.8 % Normal 11.5-15.5 [facility] ([place]) Comment on above: Performed By: #### U AMIC, UA #### [address] [address] Hematocrit (Bld) [Volume fraction] 25.5 % Low 34.0-46.0 [facility] ([place]) Comment on above: Performed By: #### U AMIC, UA #### [address] [address] Hgb 8.4 G/dL Low 12.0-16.0 [facility] ([place]) Comment on above: Performed By: #### U CONSUELO UA #### [place] [address] MCH (RBC) [Entitic mass] 31.8 pg Normal 27.0-33.0 [facility] ([place]) Comment on above: Performed By: #### U AMIC, UA #### [place] [address] MCHC 33.0 G/dL Normal 32.0-36.0 [facility] ([place]) Comment on above: Performed By: #### U CONSUELO UA #### [place] [address] MCV (RBC) [Entitic vol] 96.4 fL Normal 80.0-99.0 [facility] ([place]) Comment on above: Performed By: #### U JUAN CARLOSC, UA #### [place] [address] Platelet 171 10 3/mcL Normal 150-450 [facility] ([place]) Comment on above: Performed By: #### U CONSUELO UA #### [place] [address] Platelet mean volume (Bld) [Entitic vol] 9.2 fL Normal 6.6-10.5 [facility] ([place]) Comment on above: Performed By: #### U AMIC, UA #### [place] [address] RBC 2.65 10 6/mcL Low 4.10-5.30 [facility] ([place]) Comment on above: Performed By: #### U AMIC, UA #### [place] [address] WBC 10.4 10 3/mcL Normal 4.5-10.8 [facility] ([place]) Comment on above: Performed By: #### U AMIC, UA #### [place] [address] LABORATORYOrdered By: Luis Fernando Farooq on 01-15-2023 LDose Vancomycin:(trough) See eMAR (01/15/23 10:14 AM) Invalid Interpretation Code Chemistry S LABORATORYOrdered By: SYSTEM SYSTEM on 01-15-2023 Vancomycin trough [Mass/Vol] 35.8 ug/mL Invalid Interpretation Code 5.0 - 20.0 mcg/mL ADM SS Basophils (Bld) [#/Vol] 0.0 103/mcL Invalid Interpretation Code 0.0 - 0.3 10^3/mcL AH Workflow SS Basophils/100 WBC (Bld) 0.4 % Invalid Interpretation Code 0.0 - 2.5 % AH Workflow SS Calcium [Mass/Vol] 7.6 mg/dL Invalid Interpretation Code 8.7 - 10.4 mg/dL ADM SS Chloride [Moles/Vol] 108 mmol/L Invalid Interpretation Code 98 - 110 mEq/L ADM SS CO2 [Moles/Vol] 25 mmol/L Invalid Interpretation Code 22 - 32 mEq/L ADM SS Creatinine [Mass/Vol] 0.86 mg/dL Invalid Interpretation Code 0.50 - 1.20 mg/dL ADM SS Electrolyte Balance 7.0 mEq/L Invalid Interpretation Code 4.0 - 15.0 mEq/L ADM SS Eosinophils (Bld) [#/Vol] 0.0 103/mcL Invalid Interpretation Code 0.0 - 0.7 10^3/mcL AH Workflow SS Eosinophils/100 WBC (Bld) 0.1 % Invalid Interpretation Code 0.0 - 6.0 % AH Workflow SS Erythrocyte distribution width (RBC) [Ratio] 12.8 % Invalid Interpretation Code 11.5 - 15.5 % AH Workflow SS GFR/1.73 sq M.predicted among blacks MDRD (S/P/Bld) [Vol rate/Area] ml/min/1.73sqm Invalid Interpretation Code Chemistry S Comment on above: Interpretive Data: GFR Population mean for , Non- Americans Ages 20-29 = 116 mL/min/1.73 sq.m. Ages 30-39 = 107 mL/min/1.73 sq.m. Ages 40-49 = 99 mL/min/1.73 sq.m. Ages 50-59 = 93 mL/min/1.73 sq.m. Ages 60-69 = 85 mL/min/1.73 sq.m. Ages 70+ = 75 mL/min/1.73 sq.m. Chronic Kidney Disease: Less than 60 mL/min/1.73 square meters End Stage Renal Disease: Less than 15 mL/min/1.73 square meters GFR/1.73 sq M.predicted among non-blacks MDRD (S/P/Bld) [Vol rate/Area] ml/min/1.73sqm Invalid Interpretation Code Chemistry S Comment on above: Interpretive Data: GFR Population mean for , Non- Americans Ages 20-29 = 116 mL/min/1.73 sq.m. Ages 30-39 = 107 mL/min/1.73 sq.m. Ages 40-49 = 99 mL/min/1.73 sq.m. Ages 50-59 = 93 mL/min/1.73 sq.m. Ages 60-69 = 85 mL/min/1.73 sq.m. Ages 70+ = 75 mL/min/1.73 sq.m. Chronic Kidney Disease: Less than 60 mL/min/1.73 square meters End Stage Renal Disease: Less than 15 mL/min/1.73 square meters Glucose [Mass/Vol] 158 mg/dL Invalid Interpretation Code 82 - 115 mg/dL ADM SS Hematocrit (Bld) [Volume fraction] 25.5 % Invalid Interpretation Code 34.0 - 46.0 % Workflow SS Hemoglobin (Bld) [Mass/Vol] 8.4 G/dL Invalid Interpretation Code 12.0 - 16.0 G/dL Workflow SS Lymphocytes (Bld) [#/Vol] 1.8 103/mcL Invalid Interpretation Code 0.9 - 4.3 10^3/mcL Workflow SS Lymphocytes/100 WBC (Bld) 17.0 % Invalid Interpretation Code 20.0 - 40.0 % Workflow SS MCH (RBC) [Entitic mass] 31.8 pg Invalid Interpretation Code 27.0 - 33.0 pg Workflow SS MCHC 33.0 G/dL Invalid Interpretation Code 32.0 - 36.0 G/dL Workflow SS MCV (RBC) [Entitic vol] 96.4 fL Invalid Interpretation Code 80.0 - 99.0 fL Workflow SS Monocytes (Bld) [#/Vol] 0.9 103/mcL Invalid Interpretation Code 0.1 - 1.4 10^3/mcL AH Workflow SS Monocytes/100 WBC (Bld) 8.4 % Invalid Interpretation Code 2.0 - 13.0 % AH Workflow SS Neutrophils (Bld) [#/Vol] 7.7 103/mcL Invalid Interpretation Code 2.3 - 8.1 10^3/mcL AH Workflow SS Neutrophils/100 WBC (Bld) 74.1 % Invalid Interpretation Code 50.0 - 75.0 % AH Workflow SS Platelet mean volume (Bld) [Entitic vol] 9.2 fL Invalid Interpretation Code 6.6 - 10.5 fL AH Workflow SS Platelets (Bld) [#/Vol] 171 103/mcL Invalid Interpretation Code 150 - 450 10^3/mcL AH Workflow SS Potassium [Moles/Vol] 3.8 mmol/L Invalid Interpretation Code 3.5 - 5.0 mEq/L AH ADM SS Comment on above: Result Comment: Spec imen slightly hemolyzed. RBC (Bld) [#/Vol] 2.65 106/mcL Invalid Interpretation Code 4.10 - 5.30 10^6/mcL AH Workflow SS Sodium [Moles/Vol] 140 mmol/L Invalid Interpretation Code 136 - 145 mEq/L ADM SS Urea nitrogen [Mass/Vol] 18.0 mg/dL Invalid Interpretation Code 8.0 - 22.0 mg/dL AH ADM SS Urea nitrogen/Creatinine [Mass ratio] 20.9 ratio Invalid Interpretation Code 10.0 - 22.0 ratio AH ADM SS WBC (Bld) [#/Vol] 10.4 103/mcL Invalid Interpretation Code 4.5 - 10.8 10^3/mcL Workflow SS VANCTon 01-15-2023 LDose Vancomycin:(trough) See eMAR Normal [facility] ([place]) Comment on above: Performed By: #### V ANCT #### [address] [address] Vancomycin Tr 35.8 mcg/mL Critically abnormal 5.0-20.0 [facility] ([place]) Comment on above: Performed By: #### V ANCT #### [address] [address] .Auto Diffon 01-14-2023 Basophil, Absolute 0.0 10 3/mcL Normal 0.0-0.3 [facility] ([place]) Comment on above: Performed By: #### C BC, ADIFF, ANEU #### [facility] [address] [place] [address] Basophils/100 WBC (Bld) 0.2 % Normal 0.0-2.5 [facility] ([place]) Comment on above: Performed By: #### C VIANEY, SUSAN, ANEU #### [facility] [address] [place] [address] Eosinophil, Absolute 0.0 10 3/mcL Normal 0.0-0.7 [facility] ([place]) Comment on above: Performed By: #### C VIANEY, SUSAN, ANEU #### [address] [address] Eosinophils/100 WBC (Bld) 0.0 % Normal 0.0-6.0 [facility] ([place]) Comment on above: Performed By: #### C SUSAN WINTERS, ANEU #### [address] [address] Lymphocyte, Absolute 0.8 10 3/mcL Low 0.9-4.3 [facility] ([place]) Comment on above: Performed By: #### C SUSAN WINTERS, ANEU #### [address] [address] Lymphocytes/100 WBC (Bld) 8.1 % Low 20.0-40.0 [facility] ([place]) Comment on above: Performed By: #### C VIANEY, SUSAN, ANEU #### [address] [address] Monocyte, Absolute 0.5 10 3/mcL Normal 0.1-1.4 [facility] ([place]) Comment on above: Performed By: #### C SUSAN WINTERS, ANEU #### [address] [address] Monocytes/100 WBC (Bld) 5.1 % Normal 2.0-13.0 [facility] ([place]) Comment on above: Performed By: #### C SUSAN WINTERS, ANEU #### [address] [address] Neutrophils/100 WBC (Bld) 86.6 % High 50.0-75.0 [facility] ([place]) Comment on above: Performed By: #### SUSAN SAMUEL ANEU #### [address] [address] .GFRon 01-14-2023 GFR >60 Normal [facility] ([place]) Comment on above: Result Comment: GFR Population mean for , Non- Americans Ages 20-29 = 116 mL/min/1.73 sq.m. Ages 30-39 = 107 mL/min/1.73 sq.m. Ages 40-49 = 99 mL/min/1.73 sq.m. Ages 50-59 = 93 mL/min/1.73 sq.m. Ages 60-69 = 85 mL/min/1.73 sq.m. Ages 70+ = 75 mL/min/1.73 sq.m. Chronic Kidney Disease: Less than 60 mL/min/1.73 square meters End Stage Renal Disease: Less than 15 mL/min/1.73 square meters Performed By: #### SUSAN SAMUEL ANEU #### [place] [address] GFR Non- >60 Normal [facility] ([place]) Comment on above: Result Comment: GFR Population mean for , Non- Americans Ages 20-29 = 116 mL/min/1.73 sq.m. Ages 30-39 = 107 mL/min/1.73 sq.m. Ages 40-49 = 99 mL/min/1.73 sq.m. Ages 50-59 = 93 mL/min/1.73 sq.m. Ages 60-69 = 85 mL/min/1.73 sq.m. Ages 70+ = 75 mL/min/1.73 sq.m. Chronic Kidney Disease: Less than 60 mL/min/1.73 square meters End Stage Renal Disease: Less than 15 mL/min/1.73 square meters Performed By: #### SUSAN SAMUEL ANEU #### [address] [address] .NEUABSon 01-14-2023 Neutrophil, Absolute 8.0 10 3/mcL Normal 2.3-8.1 [facility] ([place]) Comment on above: Performed By: #### SUSAN SAMUEL ANEU #### [address] [address] APTTon 01-14-2023 aPTT Coag (Bld) [Time] 27.0 s Normal 25.0-35.0 [facility] ([place]) Comment on above: Result Comment: For Heparin anticoagulation therapy, the recommended therapeutic range is: 54-77 seconds (APTT Correlation with Anti-Xa therapeutic range of 0.3-0.7 units/ml). PLEASE REFERENCE THE PHARMACY PROTOCOL FOR DOSING. Performed By: #### C SUSAN WINTERS ANEU #### [address] [address] Heparin dose (APTT) None Normal [facility] ([place]) Comment on above: Performed By: #### SUSAN SAMUEL ANEU #### [address] [address] BMPon 01-14-2023 BUN/Creatinine Ratio 17.6 ratio Normal 10.0-22.0 [facility] ([place]) Comment on above: Performed By: #### SUSAN SAMUEL ANEU #### [address] [address] Calcium [Mass/Vol] 7.6 mg/dL Low 8.7-10.4 [facility] ([place]) Comment on above: Performed By: #### SUSAN SAMUEL ANEU #### [address] [address] Chloride [Moles/Vol] 108 mmol/L Normal 98-110 [facility] ([place]) Comment on above: Performed By: #### C SUSAN WINTERS ANEU #### [address] [address] CO2 [Moles/Vol] 24 mmol/L Normal 22-32 [facility] ([place]) Comment on above: Performed By: #### SUSAN SAMUEL ANEU #### [address] [address] Creatinine [Mass/Vol] 0.74 mg/dL Normal 0.50-1.20 [facility] ([place]) Comment on above: Performed By: #### SUSAN SAMUEL, ANEU #### [address] [address] Electrolyte Balance 7.0 mEq/L Normal 4.0-15.0 [facility] ([place]) Comment on above: Performed By: #### SUSAN SAMUEL, ANEU #### [address] [address] Glucose [Mass/Vol] 354 mg/dL High 82-115 [facility] ([place]) Comment on above: Performed By: #### SUSAN SAMUEL, ANEU #### [address] [address] Potassium [Moles/Vol] 4.1 mmol/L Normal 3.5-5.0 [facility] ([place]) Comment on above: Result Comment: Spec imen slightly hemolyzed. Performed By: #### C SUSAN WINTERS, ANEU #### [place] [id number] Sodium [Moles/Vol] 139 mmol/L Normal 136-145 [facility] ([place]) Comment on above: Performed By: #### SUSAN SAMUEL, ANEU #### [place] [id number] Urea nitrogen [Mass/Vol] 13.0 mg/dL Normal 8.0-22.0 [facility] ([place]) Comment on above: Performed By: #### SUSAN SAMUEL, ANEU #### [address] [address] CBCon 01-14-2023 Erythrocyte distribution width (RBC) [Ratio] 13.1 % Normal 11.5-15.5 [facility] ([place]) Comment on above: Performed By: #### SUSAN SAMUEL, ANEU #### [address] [address] Hematocrit (Bld) [Volume fraction] 27.5 % Low 34.0-46.0 [facility] ([place]) Comment on above: Performed By: #### SUSAN SAMUEL, ANEU #### [address] [address] Hgb 9.1 G/dL Low 12.0-16.0 [facility] ([place]) Comment on above: Performed By: #### C SUSAN WINTERS ANEU #### [address] [address] MCH (RBC) [Entitic mass] 31.9 pg Normal 27.0-33.0 [facility] ([place]) Comment on above: Performed By: #### SUSAN SAMUEL ANEU #### [address] [address] MCHC 33.2 G/dL Normal 32.0-36.0 [facility] ([place]) Comment on above: Performed By: #### C SUSAN WINTERS ANEU #### [place] [id number] MCV (RBC) [Entitic vol] 96.1 fL Normal 80.0-99.0 [facility] ([place]) Comment on above: Performed By: #### SUSAN SAMUEL ANEU #### [place] [address] Platelet 194 10 3/mcL Normal 150-450 [facility] ([place]) Comment on above: Performed By: #### SUSAN SAMUEL ANEU #### [place] [address] Platelet mean volume (Bld) [Entitic vol] 8.5 fL Normal 6.6-10.5 [facility] ([place]) Comment on above: Performed By: #### C SUSAN WINTERS ANEU #### [place] [id number] RBC 2.86 10 6/mcL Low 4.10-5.30 [facility] ([place]) Comment on above: Performed By: #### SUSAN SAMUEL ANEU #### [place] [id number] WBC 9.2 10 3/mcL Normal 4.5-10.8 [facility] ([place]) Comment on above: Performed By: #### SUSAN SAMUEL ANEU #### [place] [id number] FIBon 01-14-2023 Fibrinogen 484 mg/dL Normal 250-560 [facility] ([place]) Comment on above: Performed By: #### C SUSAN WINTERS ANEU #### [facility] [address] [place] [address] LABORATORYOrdered By: Edward Johnson on 01-14-2023 aPTT Coag (Bld) [Time] 27.0 s Invalid Interpretation Code 25.0 - 35.0 seconds [facility] SS Comment on above: Interpretive Data: F or Heparin anticoagulation therapy, the recommended therapeutic range is: 54-77 seconds (APTT Correlation with Anti-Xa therapeutic range of 0.3-0.7 units/ml). PLEASE REFERENCE THE PHARMACY PROTOCOL FOR DOSING. Fibrinogen 484 mg/dL Invalid Interpretation Code 250 - 560 mg/dL [facility] SS Heparin dose (APTT) None Invalid Interpretation Code Coagulation S PT Coag (PPP) [Time] 13.1 s Invalid Interpretation Code 9.0 - 14.2 seconds [facility] SS Comment on above: Interpretive Data: E ffective 09/24/07, Protime results may be affected by some antibiotics (i.e. Ciprofloxacin, Azithromycin, Bactrim) which may potentiate the action of oral anticoagulants, with further increases in Protime/INR. PT International Ratio 1.2 ratio Invalid Interpretation Code [facility] SS Comment on above: Interpretive Data: [employer] (CHEST, 1991, [id number]) recommended therapeutic range for oral anticoagulant therapy is: LOW RISK: Prophylaxis of venous thrombosis INR: 2.0-3.0 Treatment of pulmonary embolism 2.0-3.0 Prevention of systemic embolism 2.0-3.0 HIGH RISK: Mechanical prosthetic valves 2.5-3.5 LABORATORYOrdered By: SYSTEM SYSTEM on 01-14-2023 Basophils (Bld) [#/Vol] 0.0 103/mcL Invalid Interpretation Code 0.0 - 0.3 10^3/mcL Workflow SS Basophils/100 WBC (Bld) 0.2 % Invalid Interpretation Code 0.0 - 2.5 % Workflow SS Calcium [Mass/Vol] 7.6 mg/dL Invalid Interpretation Code 8.7 - 10.4 mg/dL ADM SS Chloride [Moles/Vol] 108 mmol/L Invalid Interpretation Code 98 - 110 mEq/L AH ADM SS CO2 [Moles/Vol] 24 mmol/L Invalid Interpretation Code 22 - 32 mEq/L AH ADM SS Electrolyte Balance 7.0 mEq/L Invalid Interpretation Code 4.0 - 15.0 mEq/L ADM SS Eosinophils (Bld) [#/Vol] 0.0 103/mcL Invalid Interpretation Code 0.0 - 0.7 10^3/mcL AH Workflow SS Eosinophils/100 WBC (Bld) 0.0 % Invalid Interpretation Code 0.0 - 6.0 % AH Workflow SS Erythrocyte distribution width (RBC) [Ratio] 13.1 % Invalid Interpretation Code 11.5 - 15.5 % AH Workflow SS Glucose [Mass/Vol] 354 mg/dL Invalid Interpretation Code 82 - 115 mg/dL ADM SS Hematocrit (Bld) [Volume fraction] 27.5 % Invalid Interpretation Code 34.0 - 46.0 % AH Workflow SS Hemoglobin (Bld) [Mass/Vol] 9.1 G/dL Invalid Interpretation Code 12.0 - 16.0 G/dL AH Workflow SS Lymphocytes (Bld) [#/Vol] 0.8 103/mcL Invalid Interpretation Code 0.9 - 4.3 10^3/mcL AH Workflow SS Lymphocytes/100 WBC (Bld) 8.1 % Invalid Interpretation Code 20.0 - 40.0 % AH Workflow SS MCH (RBC) [Entitic mass] 31.9 pg Invalid Interpretation Code 27.0 - 33.0 pg AH Workflow SS MCHC 33.2 G/dL Invalid Interpretation Code 32.0 - 36.0 G/dL AH Workflow SS MCV (RBC) [Entitic vol] 96.1 fL Invalid Interpretation Code 80.0 - 99.0 fL AH Workflow SS Monocytes (Bld) [#/Vol] 0.5 103/mcL Invalid Interpretation Code 0.1 - 1.4 10^3/mcL AH Workflow SS Monocytes/100 WBC (Bld) 5.1 % Invalid Interpretation Code 2.0 - 13.0 % AH Workflow SS Neutrophils (Bld) [#/Vol] 8.0 103/mcL Invalid Interpretation Code 2.3 - 8.1 10^3/mcL AH Workflow SS Neutrophils/100 WBC (Bld) 86.6 % Invalid Interpretation Code 50.0 - 75.0 % AH Workflow SS Platelet mean volume (Bld) [Entitic vol] 8.5 fL Invalid Interpretation Code 6.6 - 10.5 fL Workflow SS Platelets (Bld) [#/Vol] 194 103/mcL Invalid Interpretation Code 150 - 450 10^3/mcL AH Workflow SS Potassium [Moles/Vol] 4.1 mmol/L Invalid Interpretation Code 3.5 - 5.0 mEq/L AH ADM SS Comment on above: Result Comment: Spec imen slightly hemolyzed. RBC (Bld) [#/Vol] 2.86 106/mcL Invalid Interpretation Code 4.10 - 5.30 10^6/mcL AH Workflow SS Sodium [Moles/Vol] 139 mmol/L Invalid Interpretation Code 136 - 145 mEq/L AH ADM SS Urea nitrogen/Creatinine [Mass ratio] 17.6 ratio Invalid Interpretation Code 10.0 - 22.0 ratio AH ADM SS WBC (Bld) [#/Vol] 9.2 103/mcL Invalid Interpretation Code 4.5 - 10.8 10^3/mcL Workflow SS PROon 01-14-2023 INR Coag (PPP) [Relative time] 1.2 {INR} Normal [facility] ([place]) Comment on above: Result Comment: [employer] (CHEST, 1992, 102:312S-25S) recommended therapeutic range for oral anticoagulant therapy is: LOW RISK: Prophylaxis of venous thrombosis INR: 2.0-3.0 Treatment of pulmonary embolism 2.0-3.0 Prevention of systemic embolism 2.0-3.0 HIGH RISK: Mechanical prosthetic valves 2.5-3.5 Performed By: #### C SUSAN WINTERS ANEU #### [address] [address] PT Coag (PPP) [Time] 13.1 s Normal 9.0-14.2 [facility] ([place]) Comment on above: Result Comment: Effe ctive 09/24/07, Protime results may be affected by some antibiotics (i.e. Ciprofloxacin, Azithromycin, Bactrim) which may potentiate the action of oral anticoagulants, with further increases in Protime/INR. Performed By: #### C SUSAN WINTERS ANEU #### [address] [address] Michael 01-13-2023 Ethanol Level <10.0 Normal [facility] ([place]) Comment on above: Performed By: #### C BC, ADIFF, ANEU #### [place] [address] CBC + DIFFon 01-13-2023 Baso # 0.10 x10EE3/UL Normal 0.00 - 0.10 [facility] Comment on above: Performed By: #### 2 20504 #### [facility],[address] [place] [address] Basophils/100 WBC (Bld) 0.7 % Normal 0.0 - 2.0 [facility] Comment on above: Performed By: #### 2 43585 #### [facility],[address] [place] [address] CBC + DIFF Normal [facility] Comment on above: Result Comment: CBC- COMPLETE BLOOD COUNT Performed By: #### 2 88456 #### [facility],[address] [place] [address] EO # 0.10 x10EE3/UL Normal 0.00 - 0.50 [facility] Comment on above: Performed By: #### 2 11806 #### [facility],[address] [place], [place] [address] Eosinophils/100 WBC (Bld) 0.8 % Normal 0.0 - 7.0 [facility] Comment on above: Performed By: #### 2 64258 #### [facility],[address] [place] [address] Erythrocyte distribution width (RBC) [Ratio] 12.9 % Normal 12.0 - 15.6 [facility] Comment on above: Performed By: #### 2 18556 #### [place] [address] Hematocrit (Bld) [Volume fraction] 39.2 % Normal 34.0 - 46.0 [facility] Comment on above: Performed By: #### 2 20712 #### [facility],[address] [place] [address] Hemoglobin (Bld) [Mass/Vol] 13.0 g/dL Normal 12.0 - 16.0 [facility] Comment on above: Performed By: #### 2 97766 #### [facility],[address] [place] [address] Lymph # 2.00 x10EE3/UL Normal 0.80 - 2.80 [facility] Comment on above: Performed By: #### 2 48021 #### [facility],[address] [place] [address] Lymphocytes/100 WBC (Bld) 15.5 % Low 20.0 - 45.0 [facility] Comment on above: Performed By: #### 2 54462 #### [facility],[address] [place] [address] MANUAL DIFF N/A Normal [facility] Comment on above: Performed By: #### 2 80351 #### [facility],[address] [place] [address] MCH (RBC) [Entitic mass] 31 pg Normal 27 - 33 [facility] Comment on above: Performed By: #### 2 71791 #### [facility],[address] [place] [address] MCHC 33 X10 3 Normal 32 - 36 [facility] Comment on above: Performed By: #### 2 94558 #### [facility],[address] [place], [place] [address] MCV (RBC) [Entitic vol] 94 fL Normal 80 - 99 [facility] Comment on above: Performed By: #### 2 15847 #### [facility],[address] [place] [address] [place] # 0.40 x10EE3/UL Normal 0.20 - 1.00 [facility] Comment on above: Performed By: #### 2 43368 #### [facility],[address] [place] [address] MONOS % 3.2 % Normal 0.0 - 10.0 [facility] Comment on above: Performed By: #### 2 64911 #### [facility],[address] [place] [address] Morphology Ramiro (Bld) [Interp] N/A Normal [facility] Comment on above: Performed By: #### 2 10177 #### [facility],[address] [place] [address] Neut # 10.10 x10EE3/UL High 1.50 - 7.10 [facility] Comment on above: Performed By: #### 2 56749 #### [facility],[address] [place] [address] Neutrophils/100 WBC (Bld) 79.8 % High 46.0 - 76.0 [facility] Comment on above: Performed By: #### 2 89316 #### [facility],[address] [place], [place] [address] PLATELET 255 x10EE3/UL Normal 150 - 450 [facility] Comment on above: Performed By: #### 2 42108 #### [facility],[address] [place] [address] Platelet mean volume (Bld) [Entitic vol] 8.5 fL Normal 6.6 - 10.5 [facility] Comment on above: Result Comment: AUTO MATED DIFFERENTIAL Performed By: #### 2 84062 #### [facility],[address] [place] [address] RBC 4.15 x 10EE6/UL Normal 4.10 - 5.30 [facility] Comment on above: Performed By: #### 2 50482 #### [facility],[address] [place], [place] [address] WBC 12.6 x 10EE3/UL High 4.5 - 10.8 [facility] Comment on above: Performed By: #### 2 47131 #### [facility],[address] [place] [address] CMP with eGFRon 01-13-2023 AGE 62 years Normal [facility] Comment on above: Performed By: #### 2 25869 #### [facility],[address] [place] [address] Albumin [Mass/Vol] 3.1 g/dL Low 3.4 - 5.[address] [facility] Comment on above: Performed By: #### 2 94623 #### [facility],[address] [place] [address] Albumin/Globulin [Mass ratio] 0.8 {ratio} Low 0.9 - 1.6 [facility] Comment on above: Performed By: #### 2 65435 #### [facility],[address] [place] [address] ALK PHOS 148 U/L High 46 - 116 [facility] Comment on above: Performed By: #### 2 51587 #### [facility],[address] [place] [address] ALT [Catalytic activity/Vol] 47 U/L Normal 14 - 59 [facility] Comment on above: Performed By: #### 2 10631 #### [facility],[address] [place] [address] Anion gap [Moles/Vol] 14 mmol/L Normal 10 - 20 [facility] Comment on above: Performed By: #### 2 00361 #### [facility],[address] [place] [address] AST [Catalytic activity/Vol] 59 U/L High 13 - 39 [facility] Comment on above: Performed By: #### 2 37752 #### [facility],[address] [place] [address] B/C RATIO 7 ratio Normal 0 - 30 [facility] Comment on above: Performed By: #### 2 42378 #### [facility],[address] [place] [address] Bilirubin [Mass/Vol] 0.6 mg/dL Normal 0.2 - 1.0 [facility] Comment on above: Performed By: #### 2 71363 #### [facility],[address] [place] [address] Calcium [Mass/Vol] 8.5 mg/dL Normal 8.5 - 10.[address] [facility] Comment on above: Performed By: #### 2 73749 #### [facility],[address] [place] [address] Chloride [Moles/Vol] 100 mmol/L Normal 98 - 107 [facility] Comment on above: Performed By: #### 2 83381 #### [facility],[address] [place] [address] CMP with eGFR Normal [facility] Comment on above: Result Comment: COMP REHENSIVE METABOLIC PANEL Performed By: #### 2 19123 #### [facility],[address] [place] [address] CO2 [Moles/Vol] 26.8 mmol/L Normal 21.0 - 32.0 [facility] Comment on above: Performed By: #### 2 54372 #### [facility],[address] [place] [address] Creatinine [Mass/Vol] 0.81 mg/dL Normal 0.55 - 1.02 [facility] Comment on above: Performed By: #### 2 68196 #### [facility],[address] [place] [address] GFR/1.73 sq M.predicted among non-blacks MDRD (S/P/Bld) [Vol rate/Area] mL/min/{1.73_m2} Normal 60 - 999 [facility] Comment on above: Performed By: #### 2 91005 #### [facility],[address],[place] [address] Result Comment: ACCO RDING TO THE NATIONAL KIDNEY DISEASE EDUCATION PROGRAM(NKDE), A NORMAL eGFR IS A VALUE GREATER THAN OR EQUAL TO 60 ML/MIN/1.73 SQ METERS. CHRONIC KIDNEY DISEASE: <60mL/MIN/1.73 SQ METERS KIDNEY FAILURE: <15mL/MIN/1.73 SQ METERS THIS TEST SHOULD ONLY BE USED FOR PATIENTS 18 YEARS OF AGE AND OLDER. Globulin (S) [Mass/Vol] 3.7 g/dL Normal 1.5 - 3.8 [facility] Comment on above: Performed By: #### 2 53357 #### [facility],[address] [place] [address] Glucose [Mass/Vol] 307 mg/dL High 74 - [address] [facility] Comment on above: Performed By: #### 2 14234 #### [facility],[address] [place] [address] Potassium [Moles/Vol] 3.6 mmol/L Normal 3.5 - 5.1 [facility] Comment on above: Performed By: #### 2 74462 #### [facility],[address] [place] [address] Protein [Mass/Vol] 6.8 g/dL Normal 6.4 - 8.[address] [facility] Comment on above: Performed By: #### 2 42865 #### [facility],[address] [place] [address] Sodium [Moles/Vol] 137 mmol/L Normal 136 - [address] [facility] Comment on above: Performed By: #### 2 66926 #### [facility],[address] [place] [address] Urea nitrogen [Mass/Vol] 6 mg/dL Low 7 - 18 [facility] Comment on above: Performed By: #### 2 20523 #### [facility],[address] [place] [address] BRAIN W/O CONTRASTon 11-0 CT BRAIN W/O CONTRAST [place] [id number] Patient: JAMIE WALSH Phone#: : 1960 Age: 62 Gender: F Pt. Type: ER Account: [id number] Location: 052 Ordering: [facility] Exam Date: 01/13/2023/7:45 Family Phys: DAWN VICTORIAEDEN Charge Code: [id number] Physician: [place] Order #: [id number] Dose#: 52.70 PROCEDURE: CT BRAIN WITHOUT CONTRAST COMPARISON: None. INDICATIONS: Trauma. TECHNIQUE: CT images were obtained without contrast material. All CT scans at this facility use dose modulation, iterative reconstruction, and/or weight based dosing when appropriate to reduce radiation dose to as low as reasonably achievable. IV CONTRAST: No IV contrast used,0ml TOTAL DOSE: 52.70 CTDIvol(mGy) FINDINGS: CEREBRUM: No edema, hemorrhage, mass, or inappropriate atrophy. CEREBELLUM: No edema, hemorrhage, mass, or inappropriate atrophy. BRAINSTEM: No edema, hemorrhage, mass, or inappropriate atrophy. CSF SPACES: Ventricles, cisterns, and sulci are appropriate for age. No hydrocephalus, subarachnoid hemorrhage, or mass. SKULL: No mass or other significant visible lesion. SINUSES: Limited views demonstrate no significant mucosal thickening or fluid. ORBITS: Limited views are unremarkable. OTHER: There is a scalp hematoma to the left of midline at the convexity, in the parietal scalp. The hematoma measures 1.3 x 3.2 x 2.3 cm. There is surrounding soft tissue swelling. Atherosclerotic calcifications of the intracranial arteries. CONCLUSION: 1. No appreciable acute intracranial abnormality. 2. Left parietal scalp hematoma Dictated by: Alexa Crocker MD on 01/13/2023 at 16:40 Continued Report - Page 2 of 2 Patient: JAMIE WALSH Phone#: : 1960 Age: 62 Gender: F Pt. Type: ER Account: [id number] Location: 052 Ordering: [facility] Exam Date: 01/13/2023/7:45 Family Phys: DAWN RIVERA Charge Code: [id number] Physician: [place] Order #: [id number] Dose#: 52.70 Approved by: Alexa Crocker MD on 01/13/2023 at 16:47 Normal [facility] CT CERVICAL W/O CONTRASTon 1 03-15-2022 CT CERVICAL W/O CONTRAST [place] [address] Patient: JAMIE WALSH Phone#: : 1960 Age: 62 Gender: F Pt. Type: ER Account: [id number] Location: [facility] Ordering: JOHAN ESCAMILLA Exam Date: 01/13/2023/7:45 Family Phys: DAWN VICTORIAURIAHASAF Charge Code: [id number] Physician: [place] Order #: [id number] Dose#: 16.10 PROCEDURE: CT CERVICAL WITHOUT CONTRAST COMPARISON: None. INDICATIONS: Trauma. TECHNIQUE: Multi-planar CT images were created without intravenous contrast. All CT scans at this facility use dose modulation, iterative reconstruction, and/or weight-based dosing when appropriate to reduce radiation dose to as low as reasonably achievable. IV CONTRAST: No IV contrast used,0ml TOTAL DOSE: 16.10 CTDIvol(mGy) FINDINGS: CRANIOCERVICAL AREA: Normal foramen magnum with no Chiari malformation. PARASPINAL AREA: Normal with no visible mass. BONES: Straightening of the normal cervical lordosis, this may be positional due to muscle spasm. Vertebral bodies are maintained in height and alignment. No appreciable fracture subluxation, though evaluation is limited by artifact secondary to the patient's shoulders. The dens is intact. Lateral masses are symmetric. OTHER: There is atelectasis versus scarring in the lung apices. CERVICAL DISC LEVELS: C2-C3: No significant disc/facet abnormality, spinal stenosis, or foraminal stenosis. C3-C4: No significant disc/facet abnormality, spinal stenosis, or foraminal stenosis. C4-C5: No significant disc/facet abnormality, spinal stenosis, or foraminal stenosis. C5-C6: Disc height loss, uncovertebral hypertrophy and facet arthropathy contributes to severe left and moderate severe right foraminal narrowing. C6-C7: No significant disc/facet abnormality, spinal stenosis, or foraminal stenosis. C7-T1: No significant disc/facet abnormality, spinal stenosis, or foraminal stenosis. CONCLUSION: 1. Within the limits of the exam no acute osseous abnormality. Continued Report - Page 2 of 2 Patient: JAMIE WALSH Phone#: : 1960 Age: 62 Gender: F Pt. Type: ER Account: [id number] Location: 052 Ordering: [facility] Exam Date: 01/13/2023/7:45 Family Phys: DAWN RIVERA Charge Code: [id number] Physician: [place] Order #: [id number] Dose#: 16.10 2. Straightening of the normal cervical lordosis, this may be positional or due to muscle spasm 3. C5-6 degenerative changes with foraminal narrowing Dictated by: Alexa Crocker MD on 01/13/2023 at 16:48 Approved by: Alexa Crocker MD on 01/13/2023 at 16:54 Normal [facility] CT CHEST/ABD/PELVIS C+on CT CHEST/ABD/PELVIS C+ [place] [address] Patient: JAMIE WALSH Phone#: : 1960 Age: 62 Gender: F Pt. Type: ER Account: [id number] Location: 052 Ordering: [facility] Exam Date: 01/13/2023/7:51 Family Phys: DAWN RIVERA Charge Code: [id number] Physician: [place] Order #: [id number] Dose#: 58.60 PROCEDURE: CT CHEST/ABD/PELVIS W COMPARISON: None. INDICATIONS: Trauma. TECHNIQUE: After obtaining the patient's consent, CT images were obtained with intravenous contrast material. All CT scans at this facility use dose modulation, iterative reconstruction, and/or weight based dosing when appropriate to reduce radiation dose to as low as reasonably achievable. IV CONTRAST: Visipaque 320,80ml CHEST DOSE: 15.0 CTDIvol(mGy) ABDOMEN DOSE: 43.60 CTDIvol(mGy) FINDINGS: LUNGS: Scarring or atelectasis at the lung apices. VASCULATURE: Unremarkable in size HEATH: Normal. No mass or adenopathy. MEDIASTINUM: Normal. No mass or adenopathy. CARDIAC: Normal. No enlargement, pericardial thickening, or significant calcification. PLEURA: Normal. No mass or effusion. CHEST WALL: Normal. No mass or axillary adenopathy. LIVER: Diffuse fatty infiltration of the liver. BILIARY: Gallbladder is present. PANCREAS: There is fatty replacement of the pancreas. SPLEEN: Normal. No enlargement or focal lesion. KIDNEYS: Kidneys enhance and excrete contrast symmetrically. No hydronephrosis. Right lower pole renal cyst measuring 2.0 cm. Additional low-attenuation lesions too small to characterize. ADRENALS: Normal. No mass or enlargement. AORTA/VASCULAR: No aortic aneurysm. There are atherosclerotic calcifications of the aorta and branch vessels. There is a retro aortic left renal vein. RETROPERITONEUM: Normal. No mass or adenopathy. Continued Report - Page 2 of 2 Patient: JAMIE WALSH Phone#: : 1960 Age: 62 Gender: F Pt. Type: ER Account: [id number] Location: 052 Ordering: [facility] Exam Date: 01/13/2023/7:51 Family Phys: DAWN RIVERA Charge Code: [id number] Physician: [place] Order #: [id number] Dose#: 58.60 BOWEL/MESENTERY: No bowel obstruction or dilatation. No significant stool burden. The appendix is unremarkable. There is fatty infiltration of the ascending colon, this may be an incidental finding or sequela of chronic inflammatory bowel disease.. ABDOMINAL WALL: Fat containing umbilical hernia. URINARY BLADDER: Urinary bladder is decompressed PELVIC NODES: Uterus is present. No adnexal mass. PELVIC ORGANS: Normal. No visible mass. Pelvic organs appropriate for patient age. BONES: There is a burst fracture of L2 with moderate vertebral body height loss. There is retropulsion of the medial column resulting in moderate spinal canal narrowing. OTHER: Stranding of the subcutaneous tissues of the anterior left thigh. CONCLUSION: 1. L2 burst fracture with moderate vertebral body height loss. Retropulsion contributes to moderate spinal canal narrowing. 2. Fatty infiltration of the liver Dictated by: Alexa Crocker MD on 01/13/2023 at 16:54 Approved by: Alexa Crocker MD on 01/13/2023 at 17:15 Normal [facility] LABORATORYOrdered By: SYSTEM SYSTEM on 01-13-2023 Ethanol [Mass/Vol] mg/dL Invalid Interpretation Code AH ADM SS MRI SPINE LUMBAR W/O CONTRAS Ton 01-13-2023 MRI SPINE LUMBAR W/O CONTRAST ORIGINAL EXAMINATION: MRI OF THE LUMBAR SPINE [...] resident's findings and interpretation. Interpreted by: Roseanne Lee MD Preliminary Report By: Andrea Akbar Electronically signed By Roseanne Lee MD Dictated Date: 01/13/2023 2:39:40 PM Prelim Date: 01/13/2023 2:50:47 PM Sign Date: 01/13/2023 3:08:11 PM Ordering Provider: YE[facility] ([place]) TROPONIN I, HIGH SENSITIVITY on 01-13-2023 HS TROPONIN 6.3 pg/mL Normal 0.0 - 51.4 [facility] Comment on above: Performed By: #### 2 [id number] #### [facility],[address] [facility] [address] XR FLUORO 1-2 HRS TECH TIMEo n 01-13-2023 XR FLUORO 1-2 HRS TECH TIME ORIGINAL EXAMINATION: SPOT FLUOROSCOPIC IMAGES 01/13/2023 10:05 [...] procedure report for more information. Interpreted by: Clotilde Alonzo MD Preliminary Report By: Clotilde Alonzo MD Electronically signed By Clotilde Alonzo MD Dictated Date: 01/13/2023 11:32:46 PM Prelim Date: 01/13/2023 11:34:41 PM Sign Date: 01/13/2023 11:34:41 PM Ordering Provider: NESTOR Dash [facility] ([place]) EMERGENCY DEPARTMENT REPORTo n 03-13-2018 EMERGENCY DEPARTMENT REPORT [place] [id number] INFORMATION MANAGEMENTEMERGENCY DEPARTMENT REPORTPatient: JAMIE WALSH XIOMARA MARTELL M.D.[id number] FStatus: DEP ER EDDate of Service: 03/12/18CHIEF COMPLAINTSinus congestion.ALLERGIESNO KNOWN DRUG ALLERGIES.MEDICATIONST he most recent list of medications shows Zofran, Zocor, Neurontin, magnesium oxide,Prilosec, Celexa, Plavix, Synthroid and Lopressor.HISTORY OF PRESENT ILLNESSMs. Fredy is a very nice 57-year-old white female who presents to the emergencydepartment today basically for sinus congestion and cough. She has been ill. She tells methese symptoms started yesterday. She was seen here actually on March 06 which is about5 days ago for vomiting, headaches and body aches. She felt that was most likely was sometype of gastroenteritis. She was discharged home and I believe was feeling better but thenyesterday started having this headache. She has a runny nose. She has a sore throat and acough. No definite fevers. No vomiting with it. The sore throat goes all the way downher esophagus.PREVIOUS MEDICAL HISTORYPrevious medical history is significant for coronary disease, hypertension and COPD.SOCIAL HISTORYThe patient is . Nonsmoker, nondrinker.REVIEW OF SYSTEMSReview of systems as per history of present illness. Again, she has no vomiting. Nofever. She has a cough. She has sore throat and her sore throat radiates down heresophagus and it does get worse with swallowing. She also has headaches and runny nose.PHYSICAL EXAMINATIONGeneral/Con stitutional: The patient is an age-appropriate white female in no acutedistress. HEENT: Head is symmetric and atraumatic. Chest/Respiratory: Lungs are clearto auscultation bilaterally. Heart regular rate and rhythm. Lungs clear to auscultationbilaterall y. Oropharynx unremarkable. No significant erythema, no edema noted. Neurologicexamination: The patient is awake, alert, appropriately interactive.TO BE CONTINUED 03/16/18 1522 _XIOMARA CASTAÑEDA M.D.cc: XIOMARA CASTAÑEDA M.D. << Signature on File>> Reported By: XIOMARA CASTAÑEDA M.D. Signed By: XIOMARA CASTAÑEDA M.D.Tests performed at:[address] [phone] Normal [facility] CHEST (TWO VIEWS) - CXRon CHEST (TWO VIEWS) - CXR [address] [address]Tzwz: JAMIE WALSH [facility]: XIOMARA CASTAÑEDA M.D.: 56 Age: 57 Sex: FAcct: [id number] Loc: EDExam Date: 03/12/18 Status: REG ERRadiology No.: [id number] Number: [id number] # [id number] RAD / CHEST (TWO VIEWS) - CXRChest x-ray, frontal and lateral, 2 viewsClinical Statement: Shortness of breath, cough, congestionComparison: 08/06/12No focal consolidation, congestion, pleural effusion, or pneumothorax is seen.The cardiomediastinal silhouette and hilar contours are unremarkable.IMPRESSIO N:No acute process.Professional interpretation provided by [facility]97.Thank you for this referral.< >Reported By: MAHNAZ SARGENT D.O.Signed In Nova[employer] By: MAHNAZ SARGENT D.O. << Signature on File>> Reported By: MAHNAZ SARGENT D.O. Signed By: MAHNAZ SARGENT D.O.Tests performed at:[address] [phone] Normal [facility] EMERGENCY DEPARTMENT REPORTo n 03-12-2018 EMERGENCY DEPARTMENT REPORT [place], [place] [id number] INFORMATION MANAGEMENTEMERGENCY DEPARTMENT REPORTPatient: JAMIE WALSH NATHAN A M.D.[id number] 57 FStatus: DEP ER EDDate of Service: 03/12/18ADDENDUMThis dictation is an addendum to previous dictated note.DIAGNOSTIC TESTSInfluenza A and B swabs are both negative. Chest x-ray shows no definite acuteabnormalities as well and troponin T less than 0.010. EKG shows normal sinus rhythm.EMERGENCY DEPARTMENT COURSEThe patient was brought into bed #19 and was evaluated by myself. The symptoms I think aremore consistent with sinusitis at this time. I am going to go ahead and place her onAugmentin. I have ordered a DuoNeb treatment for her here. She has a history of COPD.She uses inhalers at home. I also plan to place her on Tessalon Perles and I have askedher to follow up with Dr. Cardenas, who is medical collections representative for outpatient backup.DIAGNOSISSinusi tis. 03/16/18 1522 _XIOMARA CASTAÑEDA M.D.cc: XIOMARA CASTAÑEDA M.D. << Signature on File>> Reported By: XIOMARA CASTAÑEDA M.D. Signed By: XIOMARA CASTAÑEDA M.D.Tests performed at:[address] [phone] Normal [facility] [facility] 03-12-2018 FLU A (PCR) Negative Normal NEGATIVE [facility] Comment on above: Order Comment: What is the source+ SWAB Performed By: #### L 400.0015 ####[address] [address] FLU B (PCR) Negative Normal NEGATIVE [facility] Comment on above: Order Comment: What is the source+ SWAB Performed By: #### L 400.0015 ####[address] [address] TROPONIN Ton 03-12-2018 Troponin T.cardiac mass conc ug/L Normal 0-0.010 [facility] Comment on above: Performed By: #### L 301.0120 ####ML [address] [address] CBCon 03-07-2018 Basophils Auto #/vol (Bld) 0.00 x10(3) Normal 0.00-0.10 [facility] Comment on above: Performed By: #### L 200.0010 ####ML [address] [address] Basophils/100 WBC Auto (Bld) 0.1 % Normal 0.0-1.0 [facility] Comment on above: Performed By: #### L 200.0010 ####[address] [address] Eosinophils Auto #/vol (Bld) 0.00 x10(3) Normal 0.00-0.54 [facility] Comment on above: Performed By: #### L 200.0010 ####[address] [address] Eosinophils/100 WBC Auto (Bld) 0.4 % Low 0.5-4.9 [facility] Comment on above: Performed By: #### L 200.0010 ####[address] [address] Erythrocyte distribution width Auto Ratio (RBC) 14.3 % Normal 12.5-15.7 [facility] Comment on above: Performed By: #### L 200.0010 ####ML [address] [address] Hematocrit Auto Volume Fraction (Bld) 47.4 % Normal 36.0-48.0 [facility] Comment on above: Performed By: #### L 200.0010 ####ML [address] [address] Hemoglobin mass conc (Bld) 15.8 g/dL Normal 12.0-16.0 [facility] Comment on above: Performed By: #### L 200.0010 ####[address] [address] Lymphocytes Auto #/vol (Bld) 0.60 x10(3) Low 1.00-3.50 [facility] Comment on above: Performed By: #### L 200.0010 ####[address] [address] Lymphocytes/100 WBC Auto (Bld) 5.2 % Low 16.0-48.0 [facility] Comment on above: Performed By: #### L 200.0010 ####ML [address] [address] MCH Auto Entitic mass (RBC) 30.0 pg Normal 28.5-32.9 [facility] Comment on above: Performed By: #### L 200.0010 ####[address] [address] MCHC Auto mass conc (RBC) 33.2 g/dL Normal 33.0-36.0 [facility] Comment on above: Performed By: #### L 200.0010 ####ML [address] [address] MCV Auto Entitic volume (RBC) 90.4 fL Normal 80.0-99.0 [facility] Comment on above: Performed By: #### L 200.0010 ####[address] [address] Monocytes Auto #/vol (Bld) 0.30 x10(3) Normal 0.30-0.80 [facility] Comment on above: Performed By: #### L 200.0010 ####ML [address] [address] Monocytes/100 WBC Auto (Bld) 2.5 % Low 4.3-11.2 [facility] Comment on above: Performed By: #### L 200.0010 ####[address] [address] Neutrophils Auto #/vol (Bld) 10.70 x10(3) High 1.40-6.50 [facility] Comment on above: Performed By: #### L 200.0010 ####[address] [address] Neutrophils/100 WBC Auto (Bld) 91.8 % High 45.0-73.0 [facility] Comment on above: Performed By: #### L 200.0010 ####[address] [address] Platelet mean volume Auto Entitic volume (Bld) 8.7 fL Normal 7.5-9.5 [facility] Comment on above: Performed By: #### L 200.0010 ####[address] [address] Platelets Auto #/vol (Bld) 225 X10(3) Normal 150-450 [facility] Comment on above: Performed By: #### L 200.0010 ####[address] [address] RBC Auto #/vol (Bld) 5.24 x10(6) High 3.30-5.00 [facility] Comment on above: Performed By: #### L 200.0010 ####ML - [facility] [address] [place] [address] WBC Auto #/vol (Bld) 11.7 x10(3) High 4.5-10.0 [facility] Comment on above: Performed By: #### L 200.0010 ####ML [facility] [id number] [place] [address] CMPon 03-07-2018 A:G RATIO 1.22 Normal 1.1-2.5 [facility] Comment on above: Performed By: #### L 100.0005, L100.0350 ####ML - QCSLIBRU[address] [place] [address] Albumin mass conc 4.3 g/dL Normal 3.5-5.2 [facility] Comment on above: Performed By: #### L 100.0005, L100.0350 ####ML [address] [address] ALK. PHOS 106 U/L High 35-105 [facility] Comment on above: Performed By: #### L 100.0005, L100.0350 ####ML [facility] [id number] [place] [address] ALT enzyme act/vol 19 U/L Normal - [facility] Comment on above: Result Comment: SPEC IMEN SHOWS HEMOLYSIS.IF RESULTS DO NOT CLINICALLYCORRELATE, SUGGEST RECOLLECTION. Performed By: #### L 100.0005, L100.0350 ####ML [facility] [address] [place] [address] Anion gap 3 molar conc 17.9 mmol/L Normal - [facility] Comment on above: Performed By: #### L 100.0005, L100.0350 ####ML [facility] [address] [place] [address] AST enzyme act/vol 28 U/L Normal - [facility] Comment on above: Performed By: #### L 100.0005, L100.0350 ####ML - TP[address]OFYAQ[address] [place] [address] Bilirubin Ql (U) 0.5 mg/dL Normal 0.2-1.2 [facility] Comment on above: Performed By: #### L 100.0005, L100.0350 #### - [id number] [place] [address] Calcium mass conc 9.6 mg/dL Normal 8.6-10.0 [facility] Comment on above: Performed By: #### L 100.0005, L100.0350 #### - TN[address] [place] [address] Chloride molar conc 107 mmol/L Normal 98-107 [facility] Comment on above: Performed By: #### L 100.0005, L100.0350 ####ML - [facility] [place] [address] Creatinine mass conc 0.63 mg/dL Normal 0.50-0.90 [facility] Comment on above: Performed By: #### L 100.0005, L100.0350 ####[address] [address] eGFR if AFR JACKY > 60 ml/min/1.73m2 Normal [facility] Comment on above: Result Comment: eGFR >= 60 Indicates normal kidney function. * eGFR IS AN ESTIMATE * (AFR JACKY = ) (non-AFR AM = NON-) ____ MDRD calculation used in the eGFR should not be used to dose medications. For further limitations of the eGFR please refer to the Physician Website or the National Kidney Disease Education Program website (www.nkdep.nih.gov). Performed By: #### L 100.0005, L100.0350 ####ML - [id number] [place] [address] eGFR nonAFR Jacky > 60 ml/Min/1.73m2 Normal [facility] Comment on above: Performed By: #### L 100.0005, L100.0350 ####ML - [address] [place] [address] Globulin Calculated mass conc (S) 3.5 g/dL Normal 1.5-4.5 [facility] Comment on above: Performed By: #### L 100.0005, L100.0350 ####ML - [id number] [place] [address] Glucose mass conc 134 mg/dL High 74-106 [facility] Comment on above: Performed By: #### L 100.0005, L100.0350 ####ML - [id number] [place] [address] Potassium molar conc 4.9 mmol/L Normal 3.5-5.0 [facility] Comment on above: Performed By: #### L 100.0005, L100.0350 ####ML - UITVEZQXTP180 [place] [address] Protein mass conc 7.8 g/dL Normal 6.4-8.3 [facility] Comment on above: Performed By: #### L 100.0005, L100.0350 ####ML - ULAIEQJQNG162 [place] [address] Sodium molar conc 141 mmol/L Normal 135-145 [facility] Comment on above: Performed By: #### L 100.0005, L100.0350 ####ML - OLPULXZCNZ886 [place] [address] TCO2 21 mmol/L Low 22-29 [facility] Comment on above: Performed By: #### L 100.0005, L100.0350 ####ML - OZYYUSCVTD214 [place] [address] Urea nitrogen mass conc 12 mg/dL Normal 6-20 [facility] Comment on above: Performed By: #### L 100.0005, L100.0350 ####ML - TFE[address]AV[address] [place] [address] EMERGENCY DEPARTMENT REPORTo n 03-07-2018 EMERGENCY DEPARTMENT REPORT THE [place], [place] [address]DCHYJW INFORMATION MANAGEMENTEMERGENCY DEPARTMENT REPORTPatient: JAMIE WALSH MATTHEW H D.O.[id number] FStatus: [facility] EDDate of Service: 03/06/18CHIEF COMPLAINTThe patient is a 57-year-old female who presents for vomiting tonight, headache, bodyaches, chills, diarrhea.HISTORY OF PRESENT ILLNESSThe patient states that earlier today she slept until approximately 2 p.m. States thatupon awakening she just did not feel well. The patient states that she did not have anyovert pain, but states she then began to feel nauseous and then had diarrhea. States thatthe two have been going hand in hand 5 times today. The patient states since about thethird to fourth event she did develop a mild headache. States the headache is across thefront of her head. States that it is no different than any other headache that she hasever had before. States that it is just an achy sensation, nonradiating, and it feels likeany other headache. The patient states she has had no chest pain, nausea, vomiting,diaphoresis. Has no abdominal pain, just nausea, vomiting and diarrhea. Denies any bloodin the stool came to the ED for evaluation.REVIEW OF SYSTEMSPositive for body aches, chills, nausea, vomiting and a headache.SOCIAL HISTORYNoncontributory .PAST SURGICAL HISTORYKnee surgery.PAST MEDICAL HISTORYCAD, hypertension, COPD, previous IA.PHYSICAL EXAMINATIONVital signs: Blood pressure 133/83, temperature 99.4, pulse 108, respirations 18, SPO2 95.Constitutional: No acute distress, alert and oriented, nontoxic-appearing. HEENT: PERRLA.EOMI. Negative for papilledema. Normocephalic, atraumatic. TMs clear bilaterally. Moistmucous membranes. Negative for edema, erythema, or exudative discharge in the posteriorpharynx. Negative for uvula deviation or peritonsillar abscess. Negative forlymphadenopathy, tracheal deviation or meningeal signs. Cardiac: Regular rate and rhythm.Negative for murmurs, rubs, gallops. Positive S1, S2. Pulmonary: Clear to auscultationbilaterall y. Negative for wheezes, rales or crackles. Abdomen is soft and nontender,nondistended , protuberant, no rigidity, guarding noted. Musculoskeletal: Normal radialand DP pulses. Negative for lower extremity edema, ulcerations, skin breakdown. Neuro exam:Cranial nerves II through XII intact. Alert and oriented x3. Normal finger to nose, heelto catalan bilaterally.DIAGNOSTIC TESTSThe patient did have lab work obtained. CBC: WBC 11.7, hemoglobin 15.8, hematocrit 47.4,platelet count 225. Chemistry was normal. Lipase is negative. Urine some blood in theurine, but no evidence of UTI. Influenza is pending.ASSESSMENT AND PLANAt this time the patient states that she does have a headache. However, it did begin afterher nausea, vomiting and diarrhea. The patient states that she has had multiple episodesand the headache develops after the vomiting with diarrhea, and states she believes thatthe headache is most likely secondary to that. The patient's neuro exam was completelyunremarkable . The patient's physical exam was very benign. Her abdominal exam showed noevidence of abdominal pain to palpation. No rigidity, no guarding, lab work wasunremarkable. The patient states that she does get these headaches when she does not takeher metoprolol and has requested we give her a dose which she has been able to take p.o.The patient does have a bottle of Sprite and which she has been tolerating while here. Wedid give her IV fluids and some Zofran. At this time that does appear to be agastroenteritis. The patient has had no chest pain or any other symptoms, and thus I amnot concerned for a cardiac issue. We are going to give the patient indications on when toreturn to the ED, waiting on influenza for final disposition. 03/07/18 2155 _BLAINE CHAMBERLAIN D.O.cc: DAWN RIVERA M.D.; BLAINE CHAMBERLAIN D.O. << Signature on File>> Reported By: BLAINE CHAMBERLAIN D.O. Signed By: BLAINE CHAMBERLAIN D.O.Tests performed at:[address] [id number] Normal [facility] FLU PCRon 03-07-2018 FLU A (PCR) Negative Normal NEGATIVE [facility] Comment on above: Order Comment: What is the source+ SWAB Performed By: #### L 400.0015 ####ML - [id number] [place] [address] FLU B (PCR) Negative Normal NEGATIVE [facility] Comment on above: Order Comment: What is the source+ SWAB Performed By: #### L 400.0015 ####ML - [id number] [place] [address] LIPASEon 03-07-2018 Lipase enzyme act/vol 16 U/L Normal 60 [facility] Comment on above: Performed By: #### L 100.0005, L100.0350 ####ML - UZTRZCMMWL[address] [place] [address] URINALYSISon 03-07-2018 Bilirubin Ql (U) Negative Normal NEGATIVE [facility] Comment on above: Order Comment: Urine Specimen Source+ CLEAN CATCH Performed By: #### L 200.3000 ####ML - [id number] [place] [address] Color Nom (U) YELLOW Normal YELLOW [facility] Comment on above: Order Comment: Urine Specimen Source+ CLEAN CATCH Performed By: #### L 200.3000 ####ML - RGZECREVHK[address] [place] [address] Glucose Ql (U) Negative Normal NEGATIVE [facility] Comment on above: Order Comment: Urine Specimen Source+ CLEAN CATCH Performed By: #### L 200.3000 ####ML - [id number] [place] [address] Hemoglobin Test strip Ql (U) MODERATE Normal NEGATIVE [facility] Comment on above: Order Comment: Urine Specimen Source+ CLEAN CATCH Performed By: #### L 200.3000 ####ML - [id number] [place] [address] Leukocyte esterase Test strip Ql (U) Negative Normal NEGATIVE [facility] Comment on above: Order Comment: Urine Specimen Source+ CLEAN CATCH Performed By: #### L 200.3000 ####ML - [id number] [place] [address] Nitrite Test strip Ql (U) Negative Normal NEGATIVE [facility] Comment on above: Order Comment: Urine Specimen Source+ CLEAN CATCH Performed By: #### L 200.3000 ####ML - [facility] [id number] [place] [address] pH Test strip (U) 5.0 [pH] Normal 5.0-8.0 [facility] Comment on above: Order Comment: Urine Specimen Source+ CLEAN CATCH Performed By: #### L 200.3000 ####ML - [facility] [id number] [place] [address] Protein Test strip Ql (U) Negative Normal NEGATIVE [facility] Comment on above: Order Comment: Urine Specimen Source+ CLEAN CATCH Performed By: #### L 200.3000 ####ML - [facility] [id number] [place] [address] URINE APPEARANC CLEAR Normal CLEAR [facility] Comment on above: Order Comment: Urine Specimen Source+ CLEAN CATCH Performed By: #### L 200.3000 ####ML - [facility] [id number] [place] [address] URINE KETONE TRACE Normal NEGATIVE [facility] Comment on above: Order Comment: Urine Specimen Source+ CLEAN CATCH Performed By: #### L 200.3000 ####ML - [facility] [id number] [place] [address] URINE SPECIFIC >=1.030 Normal 1.001-1.035 [facility] Comment on above: Order Comment: Urine Specimen Source+ CLEAN CATCH Performed By: #### L 200.3000 ####ML - [facility] [id number] [place] [address] URINE UROBILINO 0.2 EU/DL Normal 0.2-1.0 [facility] Comment on above: Order Comment: Urine Specimen Source+ CLEAN CATCH Performed By: #### L 200.3000 ####ML - [facility] [id number] [place] [address] Clinical Lists Update: Clini augusto Noteon 01-04-2017 Left ventricular Ejection fraction 55 % Invalid Interpretation Code [facility] Work Phone: Microbiology: MRSA/SAID SCRE ENon 12-27-2016 MRSA+SAID SCRN . Invalid Interpretation Code [facility] Work Phone: Office Visiton 12-06-2016 Dietary management education, guidance, and counseling (procedure) yes Invalid Interpretation Code [facility] Work Phone: Documentation of current medications (procedure) Done Invalid Interpretation Code [facility] Work Phone: Tobacco smoking status NHIS Never Invalid Interpretation Code [facility] Work Phone: Tobacco use CP Former smoker Invalid Interpretation Code [facility] Work Phone: Clinical Lists Update: Prelo counter caser 04-29-2015 Anion gap 8 mmol/L Invalid Interpretation Code [facility] Work Phone: BUN/Creatinine Ratio 19.1 mg/mg Invalid Interpretation Code [facility] Work Phone: Calcium 8.4 mg/dL Low [facility] Work Phone: Chloride 109 mmol/L High [facility] Work Phone: CO2 24 mmol/L Invalid Interpretation Code [facility] Work Phone: Creatinine 0.79 mg/dL Invalid Interpretation Code [facility] Work Phone: Erythrocytes (RBC) 4.08 10*6/uL Low [facility] Work Phone: Glucose mass conc 112 mg/dL High [facility] Work Phone: Hematocrit (HCT) 37.0 % Low [facility] Work Phone: Hemoglobin mass conc (Bld) 11.9 g/dL Low [facility] Work Phone: Platelets 257 10*3/mm3 Invalid Interpretation Code [facility] Work Phone: Potassium molar conc 4.2 mmol/L Invalid Interpretation Code [facility] Work Phone: Sodium 141 mmol/L Invalid Interpretation Code [facility] Work Phone: Urea nitrogen 15 mg/dL Invalid Interpretation Code [facility] Work Phone: WBC (Leukocytes) 8.2 10*3/uL Invalid Interpretation Code [facility] Phone: Clinical Lists Update: Prelo counter caser 11-24-2014 Alanine aminotransferase (ALT) 12 U/L Invalid Interpretation Code [facility] Work Phone: Albumin 3.7 g/dL Invalid Interpretation Code [facility] Work Phone: Alkaline phosphatase (ALP) 64 U/L Invalid Interpretation Code [facility] Work Phone: Aspartate aminotransferase (AST) 15 U/L Invalid Interpretation Code [facility] Work Phone: Bilirubin (direct) 0.1 mg/dL Invalid Interpretation Code [facility] Phone: Bilirubin (total) 0.4 mg/dL Invalid Interpretation Code [facility] Phone: Cholesterol 150 mg/dL Invalid Interpretation Code [facility] Phone: Cholesterol to HDL Ratio 3.2 {ratio} Invalid Interpretation Code [facility] Phone: HDL Cholesterol 47 mg/dL Invalid Interpretation Code [facility] Phone: LDL Cholesterol 70 mg/dL Invalid Interpretation Code [facility] Phone: Protein 6.8 g/dL Invalid Interpretation Code [facility] Phone: Triglyceride 166 mg/dL High [facility] Phone: Office Visit: [facility] 05-07-19 15 cardiac risk group C Invalid Interpretation Code [facility] Phone: General cardiovascular disease 10Y risk [#] [place].D'Agostin o N/A Invalid Interpretation Code [facility] Phone: Lab Report: Basic Metabolic Profile (BMP)on 02-20-2014 eGFR (non-black) 96 mL/min/{1.73_m2} Invalid Interpretation Code >60 [facility] Phone: eGFR (non-black) 79 mL/min/{1.73_m2} Invalid Interpretation Code >60 [facility] Phone: Lab Report: Magnesiumon 02-09 Magnesium 1.8 mg/dL Invalid Interpretation Code 1.8-2.4 [facility] [employer] [employer] Phone: Office Visiton 01-07-2014 Smoking cessation education (procedure) yes Invalid Interpretation Code [facility] Phone: Clinical Lists Update: Prelo counter caser 11-26-2013 Creatine kinase (CK) 78 U/L Invalid Interpretation Code [facility] [employer] Phone: Erythrocyte distribution width Auto Ratio (RBC) 14.2 % Invalid Interpretation Code [facility] Phone: MCH 31.2 pg Invalid Interpretation Code [facility] [employer] Phone: MCHC mass conc (RBC) 32.4 g/dL Invalid Interpretation Code [facility] Phone: MCV 96.3 fL Invalid Interpretation Code [facility] [employer] Phone: PMV by Ramila 10.4 fL Invalid Interpretation Code [facility] [employer] Phone: Influenza virus A and B and SARS-CoV-2 (COVID-19) Ag panel - Upper respiratory specim SARS-CoV-2 & FLU Antigen (Rapid) SARS-CoV-2 (COVID 19) [facility] Work Phone: Vital Signs Date Time Vital Sign Value Performing Clinician Facility 08-07-2024 14:35-0400 Body height 152.[address] Dawn Rivera MD Work Phone: [facility] 08-07-2024 14:35-0400 Body mass index (BMI) [Ratio] 36 kg/m2 Dr. Dawn Rivera MD Work Phone: [facility] 08-07-2024 14:35-0400 Body weight 83.[address] Dawn Rivera MD Work Phone: [facility] 08-07-2024 14:35-0400 Diastolic blood pressure 75 mm[Hg] Dr. Dawn Rivera MD Work Phone: [facility] 08-07-2024 14:35-0400 Heart rate 85 /min Dr. Dawn Rivera MD Work Phone: [facility] 08-07-2024 14:35-0400 SaO2% (BldA) [Mass fraction] 95 % Dr. Dawn Rivera MD Work Phone: [facility] 08-07-2024 14:35-0400 Systolic blood pressure 124 mm[Hg] Dr. Dawn Rivera MD Work Phone: [facility] 08-01-2024 07:21-0400 Body mass index (BMI) [Ratio] 36.3 kg/m2 Dr. Dawn Rivera MD Work Phone: [facility] 08-01-2024 07:21-0400 Body weight 84.[address] Dawn Rivera MD Work Phone: [facility] 08-01-2024 07:21-0400 Diastolic blood pressure 82 mm[Hg] Dr. Dawn Rivera MD Work Phone: [facility] 08-01-2024 07:21-0400 Heart rate 88 /min Dr. Dawn Rivera MD Work Phone: [facility] 08-01-2024 07:21-0400 Respiratory rate 18 /min Dr. Dawn Rivera MD Work Phone: [facility] 08-01-2024 07:21-0400 SaO2% (BldA) [Mass fraction] 96 % Dr. Dawn Rivera MD Work Phone: [facility] 08-01-2024 07:21-0400 Systolic blood pressure 126 mm[Hg] Dr. Dawn Rivera MD Work Phone: [facility] 06-28-2023 14:00-0400 SaO2% (BldA) [Mass fraction] 97 % Dr. Dawn Rivera Work Phone: [facility] 06-28-2023 13:58-0400 Body temperature 97.5 [degF] Dr. Dawn Rivera Work Phone: [facility] 06-28-2023 13:58-0400 Diastolic blood pressure 88 mm[Hg] Dr. Dawn Rivera Work Phone: [facility] 06-28-2023 13:58-0400 Heart rate 72 /min Dr. Dawn Rivera Work Phone: [facility] 06-28-2023 13:58-0400 Respiratory rate 16 /min Dr. Dawn Rivera Work Phone: [facility] 06-28-2023 13:58-0400 Systolic blood pressure 129 mm[Hg] Dr. Dawn Rivera Work Phone: [facility] 06-28-2023 11:00-0400 Body height 152.[address] Dawn Rivera Work Phone: [facility] 06-28-2023 11:00-0400 Body mass index (BMI) [Ratio] 41.3 kg/m2 Dr. Dawn Rivera Work Phone: [facility] 06-28-2023 11:00-0400 Body weight 96.[address] Dawn Rivera Work Phone: [facility] 06-28-2023 09:41-0400 Body mass index (BMI) [Ratio] 42.2 kg/m2 Dr. Dawn Rivera Work Phone: [facility] 06-28-2023 09:41-0400 Body temperature 97.8 [degF] Dr. Dawn Rivera Work Phone: [facility] 06-28-2023 09:41-0400 Body weight 97.[address] Dawn Rivera Work Phone: [facility] 06-28-2023 09:41-0400 Diastolic blood pressure 72 mm[Hg] Dr. Dawn Rivera Work Phone: [facility] 06-28-2023 09:41-0400 Heart rate 90 /min Dr. Dawn Rivera Work Phone: [facility] 06-28-2023 09:41-0400 SaO2% (BldA) [Mass fraction] 93 % Dr. Dawn Rivera [facility] [place] 06-28-2023 09:41-0400 Systolic blood pressure 128 mm[Hg] Dr. Dawn Rivera Work Phone: [facility] 06-20-2023 10:50-0400 Body temperature 97.7 [degF] NESTOR LASSITER MD [address] 06-20-2023 10:50-0400 Diastolic Blood Pressure Non-Invasive 62 mm[Hg] NESTOR LASSITER MD [address] 06-20-2023 10:50-0400 Heart rate 77 /min NESTOR LASSITER MD [facility] 06-20-2023 10:50-0400 Respiratory rate 18 /min NESTOR LASSITER MD [facility] 06-20-2023 10:50-0400 Systolic Blood Pressure Non-Invasive 121 mm[Hg] NESTOR LASSITER MD [facility] 06-20-2023 07:29-0400 Blood Pressure Cuff Size NESTOR LASSITER MD [facility] 06-20-2023 07:29-0400 Blood Pressure Location NESTOR LASSITER MD [address] [place] [address] 06-20-2023 07:29-0400 Blood Pressure Method NESTOR LASSITER MD [address] [place] [address] 06-20-2023 07:29-0400 Body temperature 97.88 [degF] NESTOR LASSITER MD [address] [place] [address] 06-20-2023 07:29-0400 Diastolic Blood Pressure Non-Invasive 63 mm[Hg] NESTOR LASSITER MD [address] [place] [address] 06-20-2023 07:29-0400 Heart rate 77 /min NESTOR LASSITER MD [address] [place] [address] 06-20-2023 07:29-0400 Reason For Taking VItal Signs NESTOR LASSITER MD [address] [place] [address] 06-20-2023 07:29-0400 Respiratory rate 18 /min NESTOR LASSITER MD [address] [place] [address] 06-20-2023 07:29-0400 Systolic Blood Pressure Non-Invasive 128 mm[Hg] NESTOR LASSITER MD [address] [place] [address] 06-20-2023 03:06-0400 Body temperature 98.6 [degF] NESTOR LASSITER MD [address] [place] [address] 06-20-2023 03:06-0400 Heart rate 90 /min NESTOR LASSITER MD [address] [place] [address] 06-20-2023 03:06-0400 Reason For Taking VItal Signs NESTOR LASSITER MD [address] [place] [address] 06-19-2023 22:49-0400 Blood Pressure Cuff Size NESTOR LASSITER MD [address] [place] [address] 06-19-2023 22:49-0400 Blood Pressure Location NESTOR LASSITER MD [address] [place] [address] 06-19-2023 22:49-0400 Blood Pressure Method NESTOR LASSITER MD [address] [place] [address] 06-19-2023 22:49-0400 Diastolic Blood Pressure Non-Invasive 68 mm[Hg] NESTOR LASSITER MD [address] [place] [address] 06-19-2023 22:49-0400 Heart rate 82 /min NESTOR LASSITER MD [address] [place] [address] 06-19-2023 22:49-0400 Respiratory rate 17 /min NESTOR LASSITER MD [address] [place] [address] 06-19-2023 22:49-0400 Systolic Blood Pressure Non-Invasive 122 mm[Hg] NESTOR LASSITER MD [address] [place] [address] 06-19-2023 21:26-0400 Heart rate 85 /min NESTOR LASSITER MD [address] [place] [address] 06-19-2023 18:53-0400 Blood Pressure Cuff Size NESTOR LASSITER MD [address] [place] [address] 06-19-2023 18:53-0400 Blood Pressure Location NESTOR LASSITER MD [address] [place] [address] 06-19-2023 18:53-0400 Blood Pressure Method NESTOR LASSITER MD [address] [place] [address] 06-19-2023 18:53-0400 Heart rate 92 /min NESTOR LASSITER MD [address] [place] [address] 06-19-2023 16:21-0400 Reason For Taking VItal Signs NESTOR LASSITER MD [address] [place] [address] 06-19-2023 12:54-0400 Body height 149.9 cm NESTOR LASSITER MD [address] [place] [address] 06-19-2023 12:54-0400 Body weight 95.7 kg NESTOR LASSITER MD [address] [place] [address] 06-19-2023 12:54-0400 Body weight 42.59 kg/m2 NESTOR LASSITER MD [address] [place] [address] 06-19-2023 12:11-0400 Body temperature 96.8 [degF] NESTOR LASSITER MD [address] [place] [address] 06-19-2023 12:11-0400 Heart rate 88 /min NESTOR LASSITER MD [address] [place] [address] 06-19-2023 12:11-0400 Mean blood pressure 77 mm[Hg] NESTOR LASSITER MD [address] [place] [address] 06-19-2023 11:54-0400 Heart rate 90 /min NESTOR LASSITER MD [address] [place] [address] 06-19-2023 11:54-0400 Mean blood pressure 77 mm[Hg] NESTOR LASSITER MD [address] [place] [address] 06-19-2023 11:35-0400 Mean blood pressure 73 mm[Hg] NESTOR LASSITER MD [address] [place] [address] 06-19-2023 10:04-0400 Body temperature 98.06 [degF] NESTOR LASSITER MD [address] [place] [address] 06-19-2023 10:00-0400 Respiratory Rate - Anes 4 br/min NESTOR LASSITER MD [address] [place] [address] 06-19-2023 09:55-0400 Respiratory Rate - Anes 12 br/min NESTOR LASSITER MD [address] [place] [address] 06-19-2023 09:50-0400 Respiratory Rate - Anes 0 br/min NESTOR LASSITER MD [address] [place] [address] 06-19-2023 08:00-0400 Body temperature 93.06 [degF] NESTOR LASSITER MD [address] [place] [address] 06-19-2023 07:55-0400 Body temperature 93.31 [degF] NESTOR LASSITER MD [address] [place] [address] 06-19-2023 07:50-0400 Body temperature 93.7 [degF] NESTOR LASSITER MD [address] [place] [address] 06-19-2023 05:55-0400 Body height 149.9 cm NESTOR LASSITER MD [address] [place] [address] 06-19-2023 05:55-0400 Body temperature 96.98 [degF] NESTOR LASSITER MD [address] [place] [address] 06-19-2023 05:55-0400 Body weight 95.7 kg NESTOR LASSITER MD [address] [place] [address] 06-11-2023 11:49-0400 Blood Pressure Cuff Size NESTOR LASSITER MD [address] [place] [address] 06-11-2023 11:49-0400 Blood Pressure Location NESTOR LASSITER MD [address] [place] [address] 06-11-2023 11:49-0400 Blood Pressure Method NESTOR LASSITER MD [address] [place] [address] 06-11-2023 11:49-0400 Body height 150 cm NESTOR LASSITER MD [address] [place] [address] 06-11-2023 11:49-0400 Body temperature 97.52 [degF] NESTOR LASSITER MD [address] [place] [address] 06-11-2023 11:49-0400 Body weight 98 kg NESTOR LASSITER MD [address] [place] [address] 06-11-2023 11:49-0400 Body weight 43.56 kg/m2 NESTOR LASSITER MD [address] [place] [address] 06-11-2023 11:49-0400 Diastolic Blood Pressure Non-Invasive 73 mm[Hg] NESTOR LASSITER MD [address] [place] [address] 06-11-2023 11:49-0400 Heart rate 91 /min NESTOR LASSITER MD [address] [place] [address] 06-11-2023 11:49-0400 Systolic Blood Pressure Non-Invasive 114 mm[Hg] NESTOR LASSITER MD [address] [place] [address] 05-21-2023 15:52-0400 Body height 152.4 cm [facility] 05-21-2023 15:52-0400 Body weight 99.42 kg [facility] 01-17-2023 08:34-0500 Heart rate 78 /min NESTOR LASSITER MD [address] [place] [address] 01-17-2023 07:48-0500 Heart rate 78 /min NESTOR LASSITER MD [address] [place] [address] 01-17-2023 07:48-0500 Respiratory rate 20 /min NESTOR LASSITER MD [address] [place] [address] 01-17-2023 06:31-0500 Blood Pressure Cuff Size NESTOR LASSITER MD [address] [place] [address] 01-17-2023 06:31-0500 Blood Pressure Location NESTOR LASSITER MD [address] [place] [address] 01-17-2023 06:31-0500 Blood Pressure Method NESTOR LASSITER MD [address] [place] [address] 01-17-2023 06:31-0500 Body temperature 98.78 [degF] NESTOR LASSITER MD [address] [place] [address] 01-17-2023 06:31-0500 Diastolic Blood Pressure Non-Invasive 65 1 NESTOR LASSITER MD [address] [place] [address] 01-17-2023 06:31-0500 Heart rate 79 /min NESTOR LASSITER MD [address] [place] [address] 01-17-2023 06:31-0500 Reason For Taking VItal Signs NESTOR LASSITER MD [address] [place] [address] 01-17-2023 06:31-0500 Respiratory rate 18 /min NESTOR LASSITER MD [address] [place] [address] 01-17-2023 06:31-0500 Systolic Blood Pressure Non-Invasive 118 1 NESTOR LASSITER MD [address] [place] [address] 01-17-2023 04:47-0500 Heart rate 60 /min NESTOR LASSITER MD [address] [place] [address] 01-17-2023 03:20-0500 Blood Pressure Cuff Size NESTOR LASSITER MD [address] [place] [address] 01-17-2023 03:20-0500 Blood Pressure Location NESTOR LASSITER MD [address] [place] [address] 01-17-2023 03:20-0500 Blood Pressure Method NESTOR LASSITER MD [address] [place] [address] 01-17-2023 03:20-0500 Body temperature 98.06 [degF] NESTOR LASSITER MD [address] [place] [address] 01-17-2023 03:20-0500 Diastolic Blood Pressure Non-Invasive 56 1 NESTOR LASSITER MD [address] [place] [address] 01-17-2023 03:20-0500 Respiratory rate 18 /min NESTOR LASSITER MD [address] [place] [address] 01-17-2023 03:20-0500 Systolic Blood Pressure Non-Invasive 106 1 NESTOR LASSITER MD [address] [place] [address] 01-16-2023 22:42-0500 Blood Pressure Location NESTOR LASSITER MD [address] [place] [address] 01-16-2023 22:42-0500 Blood Pressure Method NESTOR LASSITER MD [address] [place] [address] 01-16-2023 22:42-0500 Body temperature 98.6 [degF] NESTOR LASSITER MD [address] [place] [address] 01-16-2023 22:42-0500 Diastolic Blood Pressure Non-Invasive 65 1 NESTOR LASSITER MD [address] [place] [address] 01-16-2023 22:42-0500 Reason For Taking VItal Signs NESTOR LASSITER MD [address] [place] [address] 01-16-2023 22:42-0500 Systolic Blood Pressure Non-Invasive 142 1 NESTOR LASSITER MD [address] [place] [address] 01-16-2023 19:04-0500 Reason For Taking VItal Signs NESTOR LASSITER MD [address] [place] [address] 01-16-2023 14:51-0500 Blood Pressure Cuff Size NESTOR LASSITER MD [address] [place] [address] 01-16-2023 08:36-0500 Heart rate 78 /min NESTOR LASSITER MD [address] [place] [address] 01-15-2023 18:43-0500 Heart rate 89 /min NESTOR LASSITER MD [address] [place] [address] 01-15-2023 08:22-0500 Heart rate 76 /min NESTOR LASSITER MD [address] [place] [address] 01-15-2023 02:35-0500 Heart rate 64 /min NESTOR LASSITER MD [address] [place] [address] 01-14-2023 22:33-0500 Heart rate 65 /min NESTOR LASSITER MD [address] [place] [address] 01-14-2023 06:31-0500 Mean blood pressure 78 mm[Hg] NESTOR LASSITER MD [address] [place] [address] 01-14-2023 01:55-0500 Body height 152.4 cm NESTOR LASSITER MD [address] [place] [address] 01-14-2023 01:55-0500 Body weight 105.9 kg NESTOR LASSITER MD [address] [place] [address] 01-14-2023 01:55-0500 Body weight 45.6 kg/m2 NESTOR LASSITER MD [address] [place] [address] 01-14-2023 01:52-0500 Body temperature 97.52 [degF] NESTOR LASSITER MD [address] [place] [address] 01-14-2023 01:48-0500 Body height 152.4 cm NESTOR LASSITER MD [address] [place] [address] 01-14-2023 01:48-0500 Body weight 105.9 kg NESTOR LASSITER MD [address] [place] [address] 01-14-2023 01:48-0500 Body weight 45.6 kg/m2 NESTOR LASSITER MD [address] [place] [address] 01-14-2023 01:20-0500 Mean blood pressure 87 mm[Hg] NESTOR LASSITER MD [address] [place] [address] 01-14-2023 01:01-0500 Body temperature 97.16 [degF] NESTOR LASSITER MD [address] [place] [address] Comment on above: Result Comment: Daylight Savings Time 01-14-2023 01:01-0500 Mean blood pressure 84 mm[Hg] NESTOR LASSITER MD [address] [place] [address] 01-14-2023 00:37-0400 Diastolic blood pressure 59 mm[Hg] NESTOR LASSITER MD [address] [place] [address] 01-14-2023 00:37-0400 Mean blood pressure 77 mm[Hg] NESTOR LASSITER MD [address] [place] [address] 01-14-2023 00:37-0400 Systolic blood pressure 126 mm[Hg] NESTOR LASSITER MD [address] [place] [address] 01-14-2023 00:20-0400 Diastolic blood pressure 62 mm[Hg] NESTOR LASSITER MD [address] [place] [address] 01-14-2023 00:20-0400 Mean blood pressure 81 mm[Hg] NESTOR LASSITER MD [address] [place] [address] 01-14-2023 00:20-0400 Systolic blood pressure 134 mm[Hg] NESTOR LASSITER MD [address] [place] [address] 01-14-2023 00:10-0400 Respiratory Rate - Anes 0 br/min NESTOR LASSITER MD [address] [place] [address] 01-14-2023 00:07-0400 Diastolic blood pressure 63 mm[Hg] NESTOR LASSITER MD [address] [place] [address] 01-14-2023 00:07-0400 Mean blood pressure 80 mm[Hg] NESTOR LASSITER MD [address] [place] [address] 01-14-2023 00:07-0400 Systolic blood pressure 130 mm[Hg] NESTOR LASSITER MD [address] [place] [address] 01-14-2023 00:05-0400 Body temperature 97.88 [degF] NESTOR LASSITER MD [address] [place] [address] 01-14-2023 00:05-0400 Respiratory Rate - Anes 0 br/min NESTOR LASSITER MD [address] [place] [address] 01-14-2023 00:00-0400 Respiratory Rate - Anes 8 br/min NESTOR LASSITER MD [address] 01-13-2023 23:10-0400 Body temperature 98.78 [degF] NESTOR LASSITER MD [address] [place] [address] 01-13-2023 23:05-0400 Body temperature 99.03 [degF] NESTOR LASSITER MD [address] [place] [address] 01-13-2023 23:00-0400 Body temperature 99.16 [degF] NESTOR LASSITER MD [address] [place] [address] 01-13-2023 11:10-0400 Body weight 105.9 kg NESTOR LASSITER MD [facility] 02-23-2022 11:24-0500 Body height 149.[address] Dawn Rivera Work Phone: [facility] Work Phone: 12-25-2021 15:52-0400 SaO2% (BldA) [Mass fraction] 96 % [facility] Work Phone: 12-25-2021 14:30-0400 Diastolic blood pressure 90 mm[Hg] [facility] Work Phone: 12-25-2021 14:30-0400 Heart rate 82 /min [facility] Work Phone: 12-25-2021 14:30-0400 Respiratory rate 15 /min [facility] Work Phone: 12-25-2021 14:30-0400 Systolic blood pressure 175 mm[Hg] [facility] Work Phone: 12-25-2021 13:30-0400 Body height 149.86 cm [facility] Work Phone: 12-25-2021 13:30-0400 Body mass index (BMI) [Ratio] 50.5 kg/m2 [facility] Work Phone: 12-25-2021 13:30-0400 Body temperature 97.8 [degF] [facility] Work Phone: 12-25-2021 13:30-0400 Body weight 113.39 kg [facility] Work Phone: 09-01-2016 16:10-0400 BMI (Body Mass Index) 37.49 kg/m2 [facility] Work Phone: 09-01-2016 16:10-0400 BP Diastolic 60 mm[Hg] [facility] Work Phone: 09-01-2016 16:10-0400 BP Systolic 106 mm[Hg] [facility] Work Phone: 09-01-2016 16:10-0400 Height 152.4 cm [facility] Work Phone: 09-01-2016 16:10-0400 Pulse (Heart Rate) 66 /min [facility] Work Phone: 09-01-2016 16:10-0400 Respiratory Rate 18 /min [facility] Work Phone: 09-01-2016 16:10-0400 Weight 87.09 kg [facility] Work Phone: 03-01-2016 13:26-0500 BSA (Body Surface Area) 1.86 m2 [facility] Work Phone: 11-12-2014 13:06-0400 Pulse Oximetry 96 % [facility] Work Phone: Encounters Encounter Date Encounter Type Care Provider Facility [facility]: [facility] Start: 09-02-2024 ambulatory Clotilde Rendon NP Facili ty:[facility] Start: 08-07-2024 End: 08-07-2024 Patient encounter procedure Dinorah Swift [facility] Work Phone: Start: 08-07-2024 End: 08-07-[address] Dawn Rivera MD Work Phone: [facility] Work Phone: Start: 08-01-2024 End: 08-01-2024 Patient encounter procedure Clotilde Rendon [facility] Work Phone: Start: 08-01-2024 End: 08-01-2024 ambulatory Dawn Miedel Facility:[facility] Start: 01-25-2024 End: 01-25-2024 ambulatory Dawn Miedel Facility:[facility] Start: 01-17-2024 End: 01-17-2024 ambulatory Dawn Miedel Facility:[facility] Start: 01-10-2024 ambulatory Dawn Miedel Facility: [facility] Start: 10-30-2023 End: 10-30-2023 ambulatory DINORAH SWIFT [facility] Start: 10-11-2023 End: 10-11-2023 ambulatory Dinorah Swift Facility:[facility] Start: 09-14-2023 End: 09-14-2023 ambulatory SIMIN ALTMAN SPECIMEN PROCESSOR-SHIPYARD SUPERVISOR Facility:A Start: 09-14-2023 End: 09-14-2023 Patient encounter procedure SIMIN ALTMAN SPECIMEN PROCESSOR-SHIPYARD SUPERVISOR [facility] Start: 07-30-2023 End: 07-30-2023 ambulatory SIMIN ALTMAN SPECIMEN PROCESSOR-SHIPYARD SUPERVISOR Facility:A Start: 07-30-2023 End: 07-30-2023 Patient encounter procedure SIMIN ALTMAN SPECIMEN PROCESSOR-SHIPYARD SUPERVISOR [facility] Start: 07-02-2023 End: 07-02-2023 ambulatory NESTOR LASSITER MD Facility:A Start: 07-02-2023 End: 07-02-2023 Patient encounter procedure NESTOR LASSITER MD [facility] Start: 06-28-2023 End: 06-28-2023 Emergency department patient visit Dr. Dawn Rivera Work Phone: [facility] Work Phone: Start: 06-28-2023 End: 06-28-[address] Dawn Rivera Work Phone: [facility] Work Phone: Start: 06-19-2023 End: 06-20-2023 Evaluation and management of inpatient NESTOR LASSITER MD [facility] Start: 06-11-2023 End: 06-11-2023 Admission to establishment NESTOR LASSITER MD [facility] Start: 06-11-2023 End: 06-11-2023 ambulatory NESTOR LASSITER MD Facility:A Start: 06-11-2023 End: 06-11-2023 ambulatory SIMIN ALTMAN SPECIMEN PROCESSOR-SHIPYARD SUPERVISOR Facility:A Start: 06-11-2023 End: 06-11-2023 Patient encounter procedure SIMIN ALTMAN SPECIMEN PROCESSOR-SHIPYARD SUPERVISOR [facility] Start: 05-21-2023 End: 06-10-2023 ambulatory [facility] Work Phone: Start: 05-21-2023 End: 06-10-2023 [facility] Start: 05-21-2023 Registered [facility] Work Phone: Start: 05-17-2023 End: 05-17-2023 ambulatory [facility] Work Phone: Start: 05-17-2023 End: 05-17-2023 Patient encounter procedure [facility]-Ferdinand Adameseye Kam [facility] Start: 05-11-2023 End: 05-11-2023 ambulatory NESTOR LASSITER MD Facility:A Start: 05-11-2023 End: 05-11-2023 Patient encounter procedure NESTOR LASSITER MD [facility] Start: 05-03-2023 End: 05-03-2023 ambulatory NESTOR LASSITER MD Facility:B Start: 05-03-2023 End: 05-03-2023 Patient encounter procedure NESTOR LASSITER MD [facility] Start: 04-18-2023 End: 04-18-2023 ambulatory NESTOR LASSITER MD Facility:A Start: 02-14-2023 End: 02-14-2023 ambulatory NESTOR LASSITER MD Facility:A Start: 02-14-2023 End: 02-14-2023 Encounter for other specified special examinations NESTOR LASSITER MD Facility:A Start: 02-05-2023 End: 02-05-2023 ambulatory NESTOR LASSITER MD Facility:B Start: 02-05-2023 End: 02-05-2023 Patient encounter procedure NESTOR LASSITER MD [facility] Start: 01-29-2023 End: 01-29-2023 ambulatory NESOTR LASSITER MD Facility:A Start: 01-29-2023 End: 01-29-2023 Patient encounter procedure NESTOR LASSITER MD [facility] Start: 01-17-2023 End: 02-26-2023 ambulatory FREDDY BORGES [facility] Start: 01-13-2023 End: 01-17-2023 Evaluation and management of inpatient NESTOR LASSITER MD [facility] Start: 01-13-2023 End: 01-13-2023 Emergency department patient visit JOHAN ESCAMILLA [facility] Start: 03-02-2022 End: 03-02-[address] Dawn Rivera Work Phone: [facility] Work Phone: Start: 03-02-2022 End: 03-02-[address] Dawn Rivera Work Phone: [facility] Start: 03-02-2022 End: 03-02-[address] Dawn Rivera Work Phone: [facility] Start: 12-25-2021 End: 12-25-2021 Emergency department patient visit [facility] Start: 03-12-2018 End: 03-12-2018 Emergency department patient visit XIOMARA CASTAÑEDA Facility:[facility] Start: 03-06-2018 End: 03-07-2018 Emergency department patient visit BLAINE Vaughan CINTIA Facility:[facility] Start: 05-11-2017 End: 05-13-2018 Patient encounter procedure ROXANA-CHI ZOYA Facility: Procedures Date Procedure Procedure Detail Performing Clinician Start: 06-28-2023 CT of abdomen and pe lvis without contrast Dr. Dawn Rivera Work Phone: Start: 06-19-2023 Structure of vertebr al column (body structure) NESTOR LASSITER MD Comment on above: Left T12 PSF, possib le extension to T11. Start: 02-06-2023 Urinalysis JOHAN SWANN Comment on above: Result Comment: URIN ALYSIS Performed By: #### [id number] #### [facility],[address] [id number] Start: 01-16-2023 Laminectomy NESTOR LASSITER MD Comment on above: L2-4 lumbar laminect nalini with T12-L4 pedicle screw fixation,and posterolateral fusion. Start: 03-02-2022 CT of upper limb wit hout contrast Dr. Dawn Rivera Work Phone: Start: 03-02-2022 Plain x-ray of wrist Dr Trever Rivera Work Phone: Start: 02-10-2019 History of placement of stent for coronary artery disease History of coronary artery stent placement Comment on above: PML-ANF-Fjp-Distal L Cx w/ 2.0 x 20 mm Promus Premier Stent 11/25/13; EVS-ZUP-Qpswte LCx w/ 2.50 x 16 mm Synergy 02/10/2019 Start: 03-12-2018 Electrocardiogram MATTH EW VOLL Start: 09-01-2016 End: 12-05-2016 Follow Up Appt 1 year Seun Blair MD Start: 09-01-2016 End: 12-05-2016 TRINA Blair MD Start: 03-01-2016 End: 03-01-2016 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 Rupa Alexis PA-C Work Phone: Start: 03-01-2016 End: 03-01-2016 Follow Up Appt 6 months Rupa Alexis PA-C Work Phone: Start: 02-10-2016 End: 02-14-2016 Arthrocentesis aspir&/inj major jt/bursa w/o Roseanne Ramachandran Work Phone: Start: 09-02-2015 End: 09-02-2015 Follow Up Appt 6 months Mulugeta Santamaria Start: 09-02-2015 End: 09-02-2015 TRINA Blair MD Start: 05-25-2015 End: 02-17-2016 *Hepatic Function Panel Mulugeta Santamaria Start: 05-25-2015 End: 02-17-2016 Lipid 1996 panel - Serum or Plasma Seun Blair MD Start: 05-03-2015 End: 05-03-2015 Left Heart Cath Seun Blair MD Start: 11-12-2014 End: 11-24-2014 *Hepatic Function Panel Mulugeta Santamaria Start: 11-12-2014 End: 11-12-2014 Follow Up Appt 6 months Mulugeta Santamaria Start: 11-12-2014 End: 11-24-2014 Lipid 1996 panel - Serum or Plasma Seun Blair MD Start: 11-12-2014 End: 11-12-2014 MMM Seun Blair MD Start: 05-07-2014 End: 05-07-2014 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 CL[employer] Rupa Alexis PA-C Work Phone: Start: 05-07-2014 End: 05-08-2014 Documentation of current medications Rupa Alexis PA-C Work Phone: Start: 05-07-2014 End: 05-07-2014 Follow Up Appt 6 months Rupa Alexis PA-C Work Phone: Start: 02-20-2014 End: 11-24-2014 *BMP Seun Blair MD Start: 02-20-2014 End: 02-20-2014 Magnesium [Mass/volume] in Serum or Plasma Seun Blair MD Start: 01-27-2014 End: 04-17-2014 Vascular Surgery Seun Blair MD Start: 01-13-2014 End: 04-17-2014 Arterial exam Seun Blair MD Start: 01-07-2014 End: 01-09-2014 *Hepatic Function Panel Mulugeta Santamaria Start: 01-07-2014 End: 01-07-2014 Follow Up Appt 4 months Mulugeta Santamaria Start: 01-07-2014 End: 04-17-2014 Follow Up Appt Other Seun Blair MD Start: 01-07-2014 End: 01-09-2014 Lipid 1996 panel - Serum or Plasma Seun Blair MD Start: 01-07-2014 End: 01-07-2014 MMM Seun Blair MD Start: 12-02-2013 End: 04-17-2014 Cardiac Rehab Seun Blair MD Arthroplasty of knee NESTOR RIBERA MD Arthroplasty of knee NESTOR RIBERA MD Comment on above: left History of percutane ous transluminal coronary angioplasty NESTOR LASSITER MD Knee region structur e (body structure) NESTOR LASSITER MD Ligation of fallopian tube R GLADYS LASSITER MD SARS-CoV-2 & FLU Ant igen (Rapid) Plan of Treatment Date Care Activity Detail Author Start: 12-25-2021 [facility] Work Phone: Start: 08-31-2017 End: 08-31-2017 Appointment Appointment [facility] Work Phone: Start: 01-18-2017 End: 01-18-2017 Appointment Appointment [facility] Work Phone: Start: 01-15-2017 End: 01-15-2017 Appointment Appointment [facility] Work Phone: Start: 09-01-2016 End: 09-01-2016 *Hepatic Function Panel *Hepatic Function Panel [facility] Phone: Start: 09-01-2016 End: 12-05-2016 Follow Up Appt 1 year Follow Up Appt 1 year [facility] Phone: Start: 09-01-2016 End: 09-01-2016 Lipid panel [AGGREGATE] *Lipid Profile CC PCP [facility] Phone: Start: 09-01-2016 End: 12-05-2016 MMM MMM [facility] Work Phone: Start: 08-16-2016 End: 08-16-2016 Physical Therapy General Physical Therapy [facility], [address] [place] [address], [id number] [facility] Phone: Start: 06-21-2016 End: 06-21-2016 Mri any jt upper extremity w/o contrast matrl MRI Joint Upper Extremity [facility] Phone: Start: 03-01-2016 End: 03-01-2016 *Hepatic Function Panel *Hepatic Function Panel [facility] Phone: Start: 03-01-2016 End: 03-01-2016 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 CLERK [facility] Phone: Start: 03-01-2016 End: 03-01-2016 Follow Up Appt 6 months Follow Up Appt 6 months [facility] Phone: Start: 03-01-2016 End: 03-01-2016 Lipid panel [AGGREGATE] *Lipid Profile CC PCP [facility] Phone: Start: 12-30-2015 End: 12-30-2015 Radiologic exam knee complete 4/more views X-Ray, Knee [facility] Phone: Start: 09-02-2015 End: 09-02-2015 Follow Up Appt 6 months Follow Up Appt 6 months [facility] Work Phone: Start: 09-02-2015 End: 09-02-2015 MMM MMM [facility] Work Phone: Start: 05-25-2015 End: 02-17-2016 *Hepatic Function Panel *Hepatic Function Panel [facility] Work Phone: Start: 05-25-2015 End: 02-17-2016 Lipid panel [AGGREGATE] *Lipid Profile CC PCP [facility] Work Phone: Start: 05-03-2015 End: 04-30-2015 Left Heart Cath Left Heart Cath [facility] Work Phone: Start: 11-12-2014 End: 11-24-2014 *Hepatic Function Panel *Hepatic Function Panel [facility] Work Phone: Start: 11-12-2014 End: 11-12-2014 Follow Up Appt 6 months Follow Up Appt 6 months [facility] Work Phone: Start: 11-12-2014 End: 11-24-2014 Lipid panel [AGGREGATE] *Lipid Profile CC PCP [facility] Work Phone: Start: 11-12-2014 End: 11-12-2014 MMM MMM [facility] Work Phone: Start: 05-07-2014 End: 05-07-2014 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 CLERK 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 CLERK [facility] Work Phone: Start: 05-07-2014 End: 05-07-2014 Follow Up Appt 6 months Follow Up Appt 6 months [facility] Work Phone: Start: 02-20-2014 End: 11-24-2014 *BMP *BMP [facility] Work Phone: Start: 02-20-2014 End: 02-20-2014 Magnesium *Magnesium [facility] Work Phone: Start: 01-27-2014 End: 01-13-2014 Vascular Surgery Vascular Surgery Emmanuel Valenzuela, [address], [address], [place], [address] [facility] Work Phone: Start: 01-13-2014 End: 01-13-2014 Arterial exam Arterial exam [facility] Phone: Start: 01-07-2014 End: 01-09-2014 *Hepatic Function Panel *Hepatic Function Panel [facility] Work Phone: Start: 01-07-2014 End: 01-07-2014 Follow Up Appt 4 months Follow Up Appt 4 months [facility] Phone: Start: 01-07-2014 End: 04-17-2014 Follow Up Appt Other Follow Up Appt Other [facility] Phone: Start: 01-07-2014 End: 01-09-2014 Lipid panel [AGGREGATE] *Lipid Profile CC PCP [facility] Work Phone: Start: 01-07-2014 End: 01-07-2014 MMM MMM [facility] Phone: Start: 12-02-2013 End: 04-17-2014 Cardiac Rehab Cardiac Rehab [facility] Phone: Comprehensive metabo lic 1999 panel - Serum or Plasma [facility] Lipid 1995 panel - S jessie or Plasma [facility] Lipid 1995 panel - S jessie or Plasma [facility] NM Heart Views W str ess and W radionuclide IV [facility] Patient Education [facility] [employer] Phone: Patient referral [facility] Work Phone: T4 free measurement [facility] Thyroid stimulating hormone measurement [facility] Thyroid stimulating hormone measurement [facility] Urine microalbumin/creatinine ratio measurement [facility] Urine microalbumin/creatinine ratio measurement [facility] Vitamin D, 25-hydrox y measurement [facility] Vitamin D, 25-hydrox y measurement [facility] Immunizations Immunization Date Immunization Notes Care Provider Fa cility 12-31-2019 tocilizumab NESTOR LASSITER MD [facility] 10-28-2019 tetanus toxoid, redu elsy diphtheria toxoid, and acellular pertussis vaccine, adsorbed [facility] 01-03-2017 influenza, injectabl e, quadrivalent, preservative free [facility] 01-03-2017 influenza, seasonal, injectable [facility] Work Phone: Payers Date Payer Category Payer Self-pay [id number] 2023 Medicare [id number] 2023 Unknown [id number] 2016 Medicare [id number] 1960 Unknown [id number] 2.16.8 40.1.386699.3.579.2. 1958 Unknown [id number] 2.16.8 40.1.901192.3.579.2 1958 Unknown [id number] 2.16.8 40.1.978888.3.579.2 1958 Unknown [id number] 2.16.8 40.1.668429.3.579.2 1958 Unknown [id number] 2.16.8 40.1.357865.3.579.2 1958 Unknown [id number] 2.16.8 40.1.131303.3.579.2 1958 Unknown [id number] 2.16.8 40.1.691064.3.579.2 1958 Unknown [id number] 2.16.8 40.1.363700.3.579.2 1958 Unknown [id number] 2.16.8 40.1.630947.3.579.2.627 1958 Unknown [id number] 2.16.8 40.1.693995.3.579.2.627 1958 Unknown [id number] 2.16.8 40.1.333033.3.579.2.627 1958 Unknown [id number] 2.16.8 40.1.977547.3.579.2.62 1958 Unknown [id number] 2.16.8 40.1.174502.3.579.2.62 1958 Unknown [id number] 2.16.8 40.1.878167.3.579.2.651 1958 Unknown [id number] 2.16.8 40.1.383455.3.579.2.651 1958 Unknown [id number] 2.16.8 40.1.211190.3.579.2.651 Medicare [id number] Unknown [id number] 2.16.8 40.1.601952.3.579.2.283 Unknown [id number] 2.16.8 40.1.944333.3.579.2.283 Unknown [id number] 2.16.8 40.1.263785.3.579.2.528 Unknown [id number] 2.16.8 40.1.029411.3.579.2.462 Unknown [id number] 2.16.8 40.1.415577.3.579.2.462 Unknown [id number] 2.16.8 40.1.697073.3.579.2.462 Unknown [id number] 2.16.8 40.1.597802.3.579.2.462 Unknown [id number] 2.16.8 40.1.707559.3.579.2.462 Unknown [id number] 2.16.8 40.1.156177.3.579.2.462 Unknown [id number] 2.16.8 40.1.395358.3.579.2.462 Unknown [id number] 2.16.8 40.1.693226.3.579.2.462 Social History Date Type Detail Facility Start: 12-25-2021 End: 06-28-2023 Tobacco smoking status NHIS Unknown if ever smoked [facility] Start: 02-23-2020 None [facility] Start: 02-23-2020 Alone;Spouse/ Significant Other [facility] Start: 12-25-2019 Cigarettes [facility] Start: 1960 Sex Assigned At Female [facility] Start: 01-29-2023 End: 06-28-2023 Tobacco smoking status Ex-smoker (finding) [facility] Sex Assigned At Sex [facility] Medical Equipment Procedure Code Equipment Code Equipment Origin al Text Equipment Identifier Dates CEMENT,BONE MAYA H 1/2 BATCH FDA Start: 04-17-2017 HEADED PINS FDA Start: 04-17-2017 HEADED PINS FDA Start: 04-17-2017 HEADLESS PIN FDA Start: 04-17-2017 TRIATHLON CRUCIA TE RETAIN FEMO FDA Start: 04-17-2017 TRIATHLON TRITAN IUM ASYMM PAT FDA Start: 04-17-2017 TRIATHLON TRITAN IUM TIBIAL COM FDA Start: 04-17-2017 TRIATHLON X3 TIB I BEAR INSE-CS FDA Start: 04-17-2017 CEMENT,BONE MAYA H 1/2 BATCH FDA Start: 04-17-2017 HEADED PINS FDA Start: 04-17-2017 HEADED PINS FDA Start: 04-17-2017 HEADLESS PIN FDA Start: 04-17-2017 TRIATHLON CRUCIA TE RETAIN FEMO FDA Start: 04-17-2017 TRIATHLON TRITAN IUM ASYMM PAT FDA Start: 04-17-2017 TRIATHLON TRITAN IUM TIBIAL COM FDA Start: 04-17-2017 TRIATHLON X3 TIB I BEAR INSE-CS FDA Start: 04-17-2017 Lumbar Instr Fus ion w/Kevin 4+ Levels [...] 1 EA, 0 Refill(s), 105.9 Start: 01-17-2023 CEMENT,BONE MAYA H 1/2 BATCH FDA Start: 04-17-2017 HEADED PINS FDA Start: 04-17-2017 HEADED PINS FDA Start: 04-17-2017 HEADLESS PIN FDA Start: 04-17-2017 TRIATHLON CRUCIA TE RETAIN FEMO FDA Start: 04-17-2017 TRIATHLON TRITAN IUM ASYMM PAT FDA Start: 04-17-2017 TRIATHLON TRITAN IUM TIBIAL COM FDA Start: 04-17-2017 TRIATHLON X3 TIB I BEAR INSE-CS FDA Start: 04-17-2017 CEMENT,BONE MAYA H 1/2 BATCH FDA Start: 04-17-2017 HEADED PINS FDA Start: 04-17-2017 HEADED PINS FDA Start: 04-17-2017 HEADLESS PIN FDA Start: 04-17-2017 TRIATHLON CRUCIA TE RETAIN FEMO FDA Start: 04-17-2017 TRIATHLON TRITAN IUM ASYMM PAT FDA Start: 04-17-2017 TRIATHLON TRITAN IUM TIBIAL COM FDA Start: 04-17-2017 TRIATHLON X3 TIB I BEAR INSE-CS FDA Start: 04-17-2017 Lumbar Instr Fus ion w/Kevin 4+ Levels [...] Unknown 01/13/23 Unknown Unknown FDA Start: 01-13-2023 Thoracic Instrum ented Fusion with Naviga Unknown 06/19/23 Unknown Unknown FDA Start: 06-19-2023 Thoracic Instrum ented Fusion with Naviga Unknown 06/19/23 Unknown Unknown FDA Start: 06-19-2023 See Instructions , Testing blood glucose QID. 1 bottle of 100 strips, # 1 EA, 0 Refill(s), Diabetes, 105.9 Start: 01-17-2023 See Instructions , Testing blood glucose TID.1 box, # 1 EA, 0 Refill(s), 105.9 Start: 01-17-2023 CEMENT,BONE MAYA H 1/2 BATCH FDA Start: 04-17-2017 HEADED PINS FDA Start: 04-17-2017 HEADED PINS FDA Start: 04-17-2017 HEADLESS PIN FDA Start: 04-17-2017 TRIATHLON CRUCIA TE RETAIN FEMO FDA Start: 04-17-2017 TRIATHLON TRITAN IUM ASYMM PAT FDA Start: 04-17-2017 TRIATHLON TRITAN IUM TIBIAL COM FDA Start: 04-17-2017 TRIATHLON X3 TIB I BEAR INSE-CS FDA Start: 04-17-2017 Lumbar Instr Fus ion w/Kevin 4+ Levels [...] Unknown 01/13/23 Unknown Unknown FDA Start: 01-13-2023 Thoracic Instrum ented Fusion with Naviga Unknown 06/19/23 Unknown Unknown FDA Start: 06-19-2023 Thoracic Instrum ented Fusion with Naviga Unknown 06/19/23 Unknown Unknown FDA Start: 06-19-2023 See Instructions , Testing blood glucose QID. [...] Unknown 01/13/23 Unknown Unknown FDA Start: 01-13-2023 Thoracic Instrum ented Fusion with Naviga Unknown 06/19/23 Unknown Unknown FDA Start: 06-19-2023 Thoracic Instrum ented Fusion with Naviga Unknown 06/19/23 Unknown Unknown FDA Start: 06-19-2023 See Instructions , Testing blood glucose QID. [...] Unknown 01/13/23 Unknown Unknown FDA Start: 01-13-2023 Thoracic Instrum ented Fusion with Naviga Unknown 06/19/23 Unknown Unknown FDA Start: 06-19-2023 Thoracic Instrum ented Fusion with Naviga Unknown 06/19/23 Unknown Unknown FDA Start: 06-19-2023 See Instructions , Testing blood glucose QID. 1 bottle of 100 strips, # 1 EA, 0 Refill(s), Diabetes, 105.9 Start: 01-17-2023 See Instructions , Testing blood glucose TID.1 box, # 1 EA, 0 Refill(s), 105.9 Start: 01-17-2023 CEMENT,BONE MAYA H 1/2 BATCH FDA Start: 04-17-2017 HEADED PINS FDA Start: 04-17-2017 HEADED PINS FDA Start: 04-17-2017 HEADLESS PIN FDA Start: 04-17-2017 TRIATHLON CRUCIA TE RETAIN FEMO FDA Start: 04-17-2017 TRIATHLON TRITAN IUM ASYMM PAT FDA Start: 04-17-2017 TRIATHLON TRITAN IUM TIBIAL COM FDA Start: 04-17-2017 TRIATHLON X3 TIB I BEAR INSE-CS FDA Start: 04-17-2017 Functional Status Date Assessment Result Facility 06-20-2023 Functional Status Identified as high risk, Fall ID band on, Room located near nursing station, Non-Slip footwear, toileting offered, supervised while toileting, Room check performed [facility] 06-20-2023 Functional Status Mod I [facility] 06-20-2023 Functional Status [facility] 06-20-2023 Functional Status [facility] 06-19-2023 Functional Status Done [facility] 06-19-2023 Functional Status Mobile home [facility] 06-19-2023 Functional Status ice chips and sips take n [facility] 06-19-2023 Functional Status Patient Identified Iden tification band [facility] 06-19-2023 Functional Status [facility] 06-11-2023 Functional Status Sensory Deficits None A [facility] 01-17-2023 Functional Status Room check performed [facility] 01-17-2023 Functional Status [facility] 01-17-2023 Functional Status [facility] 01-17-2023 Functional Status [facility] 01-16-2023 Functional Status [facility] 01-16-2023 Functional Status [facility] 01-16-2023 Functional Status Skin Care Prev entative Intervention(s) heel(s)s elevated [facility] 01-16-2023 Functional Status Activity Assistance Two assist [facility] 01-16-2023 Functional Status Done [facility] 01-16-2023 Functional Status [facility] 01-16-2023 Functional Status [facility] 01-16-2023 Functional Status Transparent silicone dr piedra [facility] 01-15-2023 Functional Status [facility] 01-15-2023 Functional Status Reason SCD Removed/Off Patient refused [facility] 01-15-2023 Functional Status Single level home [facility] 01-15-2023 Functional Status Max A [facility]23 Functional Status [facility] 01-14-2023 Functional Status bilateral knee high neptali lied/on [facility] 01-14-2023 Functional Status [facility] 01-14-2023 Functional Status ice chips and sips take n [facility] 01-14-2023 Functional Status Patient Identified Iden tification band [facility] Mental Status Date Assessment Result Facility 06-20-2023 Mental Status Oriented x 4 [facility] 06-20-2023 Mental Status [facility] 06-20-2023 Mental Status [facility] 06-19-2023 Mental Status [facility] 06-19-2023 Mental Status [facility] 01-17-2023 Mental Status Orientation Oriented x 4 [facility] 01-17-2023 Mental Status [facility] 01-16-2023 Mental Status [facility] 01-16-2023 Mental Status [facility] 01-16-2023 Mental Status [facility] 12-25-2021 Cognitive function Level Of Cons ciousness Awake;Alert;Appropriate;Follow s Commands [facility] Work Phone: Clinical Notes 01-13-2023 to 08-01-2024 Note Date & Type Note Facility 08-01-2024 Evaluation note Diagnosis Onset Date Resolution Atherosclerosis of coronary artery of [place] heart without angina pectoris chronic August 01, 2024 3:10pm Essential (primary) hypertension chronic August 01, 2024 3:10pm Hyperlipidemia chronic August 01, 2024 3:10pm Supraventricular tachycardia chronic August 01, 2024 3:10pm [employer] [employer] Work Phone: 1(834) 408-129907-05-2024 Note ORIGINAL EXAMINATION: 4 XRAY VIEWS OF THE LUMBAR SPINE09/14/2023 10:14 am LUMBAR SPINE COMPARISON: 04/18/[address] thoracic spine 05/03/2023 HISTORY: ORDERING SYSTEM PROVIDED HISTORY: Reason for Exam: 12 weeks postop PSF/PLF FINDINGS: When using same numbering nomenclature as prior CT thoracic spine, patient is status post posterior fixation extending from T12 through L4. There is no evidence of hardware fracture. The left superior most screw at T12 appears changed in orientation compared to 04/18/2023, now projecting over the vertebral body on the frontal and lateral radiographs. No definite perihardware lucency. No significant change of an L1 compression fracture and L2 burst fracture. Again seen, is grade 1 retrolisthesis of L2 on L3, which does not appear to change with extension or flexion. IMPRESSION: Postsurgical changes described above without radiographic evidence of hardware fracture. The left T12 screw has changed orientation and now projects over the T12 vertebral body. Grade 1 anterolisthesis of L2 on L3 evidence of dynamic instability. No significant change of an L1 compression fracture and L2 burst fracture. Interpreted by: Escobar Tariq Preliminary Report By: Escobar Tariq Electronically signed By Escobar Tariq Dictated Date: 09/14/2023 11:10:17 AM Prelim Date: 09/14/2023 11:19:46 AM Sign Date: 09/14/2023 11:19:46 AM Ordering Provider: SIMIN [facility]04-18-2024 Hospital Discharge instructions Additional Instructions Your CT is unchanged from 02/01. Follow-up with your orthopedic surgeon in 1 week if not improved You may use Tylenol or ibuprofen for pain as needed. You may try ice to the painful area 20 minutes on, 20 minutes off. Return to ED for worsening or concerning symptoms.[facility] Work Phone: 1(518) 518-390404-10-2024 Hospital Discharge instructions Patient Education 06/20/2023 14:38:40 Core Strength Exercises Core Strength Exercises Core exercises help to build strength in the muscles between your ribs and your hips (abdominal muscles). These muscles help to support your body and keep your spine stable. It is important to maintain strength in your core to prevent injury and pain. Some activities, such as yoga and Pilates, can help to strengthen core muscles. You can also strengthen core muscles with exercises at home. It is important to talk to your health care provider before you start a new exercise routine. What are the benefits of core strength exercises? Core strength exercises can: Reduce back pain. Help to rebuild strength after a back or spine injury. Help to prevent injury during physical activity, especially injuries to the back and knees. How to do core strength exercises Repeat these exercises 10 15 times, or until you are tired. Do exercises exactly as told by your health care provider and adjust them as directed. It is normal to feel mild stretching, pulling, tightness, or discomfort as you do these exercises. If you feel any pain while doing these exercises, stop. If your pain continues or gets worse when doing core exercises, contact your health care provider. You may want to use a padded yoga or exercise mat for strength exercises that are done on the floor. Bridging 1.Lie on your back on a firm surface with your knees bent and your feet flat on the floor. 2.Raise your hips so that your knees, hips, and shoulders form a straight line together. Keep your abdominal muscles tight. 3.Hold this position for 3 5 seconds. 4.Slowly lower your hips to the starting position. 5.Let your muscles relax completely between repetitions. Single-leg bridge 1.Lie on your back on a firm surface with your knees bent and your feet flat on the floor. 2.Raise your hips so that your knees, hips, and shoulders form a straight line together. Keep your abdominal muscles tight. 3.Lift one foot off the floor, then completely straighten that leg. 4.Hold this position for 3 5 seconds. 5.Put the straight leg back down in the bent position. 6.Slowly lower your hips to the starting position. 7.Repeat these steps using your other leg. Side bridge 1.Lie on your side with your knees bent. Prop yourself up on the elbow that is near the floor. 2.Using your abdominal muscles and your elbow that is on the floor, raise your body off the floor. Raise your hip so that your shoulder, hip, and foot form a straight line together. 3.Hold this position for 10 seconds. Keep your head and neck raised and away from your shoulder (intheir normal, neutral position). Keep your abdominal muscles tight. 4.Slowly lower your hip to the starting position. 5.Repeat and try to hold this position longer, working your way up to 30 seconds. Abdominal crunch 1.Lie on your back on a firm surface. Bend your knees and keep your feet flat on the floor. 2.Cross your arms over your chest. 3.Without bending your neck, tip your chin slightly toward your chest. 4.Tighten your abdominal muscles as you lift your chest just high enough to lift your shoulder blades off of the floor. Do not hold your breath. You can do this with short lifts or long lifts. 5.Slowly return to the starting position. Bird dog 1.Get on your hands and knees, with your legs shoulder-width apart and your arms under your shoulders. Keep your back straight. 2.Tighten your abdominal muscles. 3.Raise one of your legs off the floor and straighten it. Try to keep it parallel to the floor. 4.Slowly lower your leg to the starting position. 5.Raise one of your arms off the floor and straighten it. Try to keep it parallel to the floor. 6.Slowly lower your arm to the starting position. 7.Repeat with the other arm and leg. If possible, try raising a leg and arm at the same time, on opposite sides of the body. For example, raise your left hand and your right leg. Plank 1.Lie on your belly. 2.Prop up your body onto your forearms and your feet, keeping your legs straight. Your body should make a straight line between your shoulders and feet. 3.Hold this position for 10 seconds while keeping your abdominal muscles tight. 4.Lower your body to the starting position. 5.Repeat and try to hold this position longer, working your way up to 30 seconds. Cross-core strengthening 1.Stand with your feet shoulder-width apart. 2.Hold a ball out in front of you. Keep your arms straight. 3.Tighten your abdominal muscles and slowly rotate at your waist from side to side. Keep your feet flat. 4.Once you are comfortable, try repeating this exercise with a heavier ball. Top core strengthening 1.Stand about 18 inches (46 cm) in front of a wall, with your back to the wall. 2.Keep your feet flat and shoulder-width apart. 3.Tighten your abdominal muscles. 4.Bend your hips and knees. 5.Slowly reach between your legs to touch the wall behind you. 6.Slowly stand back up. 7.Raise your arms over your head and reach behind you. 8.Return to the starting position. General tips Do not do any exercises that cause pain. If you have pain while exercising, talk to your health care provider. Always stretch before and after doing these exercises. This can help prevent injury. Maintain a healthy weight. Ask your health care provider what weight is healthy for you. Contact a health care provider if: You have back pain that gets worse or does not go away. You feel pain while doing core strength exercises. Get help right away if: You have severe pain that does not get better with medicine. Summary Core exercises help to build strength in the muscles between your ribs and your waist. Core muscles help to support your body and keep your spine stable. Some activities, such as yoga and Pilates, can help to strengthen core muscles. Core strength exercises can help back pain and can prevent injury. If you feel any pain while doing core strength exercises, stop. This information is not intended to replace advice given to you by your health care provider. Make sure you discuss any questions you have with your health care provider. Document Released: 07/18/2017 Document Revised: 06/18/2019 Document Reviewed: 07/18/2017 [employer] Patient Education 2020 Hang w/. Follow Up Care 05/14/2023 09:12:05 With:SIMIN ALTMAN, Neurosurgery Address: [address] [place] [address] [place] [address] [phone] When:07/02/2023 13:15:00 [facility] 04-10-2024 Discharge summary Date of Service 06/20/2403 Discharge Diagnosis Displacement of other specified internal prosthetic devices, implants and grafts, initial encounter(T85.628A - ICD-10-CM) Heart failure, unspecified (I50.9 - ICD-10-CM) Chronic obstructive pulmonary disease, unspecified (J44.9 - ICD-10-CM) Hypertensive heart disease with heart failure (I11.0 - ICD-10-CM) Diabetes (E11.9 - ICD-10-CM) S/P lumbar laminectomy (Z98.890 - ICD-10-CM) Ordered: [place] 325- 5 mg oral tablet; Dose = 1 tab(s),Oral, q6hr, PRN Pain, scale 4-10, X 7 day(s), # 28 tab(s), 0 Refill(s), Pharmacy: [id number], S/P lumbar laminectomy, 149.9, cm, 06/19/23 12:54:00 EDT, Height, 95.7, kg, 06/19/23 12:54:00 EDT, Dosing Weight Additional Orders: Ordered: Discharge,06/20/23 14:16:00 EDT, Discharged to: Home Ordered: Discontinue Order,06/20/23 14:16:00 EDT, Once, ABRAHAM drain, 06/20/23 14:16:00 EDT Other status: Home Health OT Consult,06/20/23 14:31:00 EDT, Home Therapy Order: OT Eval & Treat, Home Therapy Instruction: Full weight bearing, Reason: Post neurosurgery(Complete) Other status: Home Health PT Consult,06/20/23 14:31:00 EDT, Home Therapy Order: PT Eval & Treat, Reason: Post neurosurgery, Home Therapy Instruction: Full weight bearing(Complete) Ordered: tiZANidine 4 mg oral tablet,Dose : 4 mg = 1 tab(s), Oral, TID, PRN Muscle spasm, # 30 tab(s), 0 Refill(s), Pharmacy: [id number], 149.9, cm, 06/19/23 12:54:00 EDT, Height, kg, 06/19/23 12:54:00 EDT, Dosing Weight End of Orders Hospital Course This is a 62-year-old female, who was admitted for revision of the left thoracic 12 pedicle screw. Prior to surgery, she was having complaints of deep pain in her back. She had an x-ray of her thoracic spine, which demonstrated spinal fixation hardware uncertain location of the left-sided screw at the T11-[address] of the lumbar spine was then obtained, which demonstrated loosening of the left T12 transpedicular screw. Due to these findings, it was discussed with her that surgery could be done to replace the screw. She elected to proceed with surgery. Please see Dr. Lassiter's operative not for further details and recommendations. During surgery, the pedicle screw was found to be loose, therefore it was removed and replaced witha larger screw at a different angle. Good purchase was obtained per Dr. Lassiter. Postoperatively, she is awake, alert, and oriented x 3. She is complaining of incisional pain. She states she does not have the deep pain she had prior to surgery. She is moving all 4 extremities without difficulty. Dorsiflexion and plantarflexion are strong. She denies any numbness or tingling in her upper or lower extremities. She flexes her knee against resistance without difficulty. She was evaluated by PT/OT. Spoke with the therapist and they stated the patient did well and feelsshe would be appropriate for home-going. Stated as they worked with her more, she did become more confident and seemed as though she would be agreeable to going home. She was receiving home PT/OT prior to admission. This was reordered, but [employer] is having difficulty finding a home health agency in her area that will accept. Dressing is dry and intact. Drain output 30 cc overnight; 75 cc on afternoon shift yesterday. On dayshift she had 17cc out. Therefore drain has been removed and she will be discharged home. She is comfortable with plan for discharge. She thought she would need a [facility] nurse for dressing changes, but once dressing changes were demonstrated she believes she/her will be able to do them. Overall, she is doing well, and is ready for discharge. Discharge restrictions and instructions provided to her. Follow up appointment has been arranged. She is to the Neurosurgery office if she develops fever, chills, redness around incision, or drainage from the incision. Allergies NKA Procedures S/P REVISION OF LEFT THORACIC 12 PEDICLE SCREW Consults No qualifying data available. Imaging Results and Diagnostics XR Fluoro 2 Hrs Tech Time Result Date: June 19, 2023 Verified By: DUANE WATSON DO CLINICAL STATEMENT: IMPRESSION: Please see procedure note for further detail. Objective Vitals and Measurements T: 36.5 C (Oral) TMIN: 36.5 C (Oral) TMAX: 37.0 C (Oral) HR: 77 RR: 18 BP: 121/62 SpO2: 94% Weight Dosing Weight: 95.7 kg (06/19/23) Dosing Weight: 95.7 kg (06/19/23) Code Status Code Status - Ordered -- 06/19/23 12:24:00 EDT, Full Code, Constant Order Admission Date 06/19/2023 Discharge Date 06/20/2023 Patient Instructions No aspirin, multivitamins, or NSAIDs (no Aleve, Motrin, ibuprofen) until cleared by Neurosurgery No lifting more than 10 pounds Avoid bending/twisting at the waist WEAR BACK BRACE AT ALL TIMES WHEN SITTING UP, OUT OF BED/AMBULATING or RIDING IN A VEHICLE. No driving for about 2 weeks, no driving while taking narcotic medication Keep surgical incision clean and dry at all times until healed (about 2 weeks) Maintain surgical dressing over incision for 7 days postoperatively, as it is embedded with an antibiotic. After 1 week postop, then remove dressing and begin to change daily using dry sterile gauze for about 7 to 10 days. May leave incision open to air once it is healed. Okay to shower but cover incision with watertight dressing until healed (about 2 weeks) No soaking incision for 6 weeks post-op (no tub baths, hot tubs, saunas, swimming, etc.) If surgical incision becomes red, swollen, painful, opens and/or has drainage on around site, or ifyou develop a fever contact Neurosurgery office immediately. Call Dr Lassiter's office with any additional questions or concerns. Medications New Prescription acetaminophen-hydrocodone ([place] 325- 5 mg oral tablet)1 tab(s) by mouth every 6 hours as needed Pain, scale 4-10 for 7 Days. Refills: 0. tiZANidine (tiZANidine 4 mg oral tablet)1 tab(s) by mouth three (3) times a day as needed Muscle spasm. Refills: 0. Unchanged acetaminophen (Tylenol 325 mg oral capsule)650 Milligram by mouth every 4 hours as needed Pain, scale 1-3. atorvastatin (atorvastatin 20 mg oral tablet)1 tab(s) by mouth daily at bedtime. citalopram (citalopram 20 mg oral tablet)1 tab(s) by mouth once a day (in the morning). DME (Alcohol Swabs)1 box. Refills: 0. DME (Blood Glucose Test Machine)Device as determined by insurance coverage. Refills: 0. DME (Blood Glucose Test Strips)Testing blood glucose QID. 1 bottle of 100 strips. Refills: 0. DME (DME MISCellaneous)Blood Pressure Cuff/ 1KIT. Refills: 0. DME (Lancets)Testing blood glucose TID.1 box. Refills: 0. docusate-senna (docusate-senna 50 mg-8.6 mg oral tablet)2 tab(s) by mouth daily at bedtime. ferrous sulfate (IRON (ferrous sulfate 325 mg) 65 mg oral tablet)1 tab(s) by mouth once a day (in the morning). Take with food.. furosemide (furosemide 20 mg oral tablet)1 tab(s) by mouth once a day (in the morning). gabapentin (gabapentin 300 mg oral capsule)2 cap by mouth daily at bedtime. insulin glargine (Lantus 100 units/mL10 ml vial solution)8 unit(s) Subcutaneous daily at bedtime. insulin glargine (Lantus Solostar Pen 100 units/mL 3 mL Pen)8 unit(s) Subcutaneous once a day (in the morning) for 30 Days. for AM blood sugar >140 , will take 10U at HS, if AM blood sugar is below 140 will take 8 units at HS OK to change to vial if pens are not covered by insurance.. Refills: 0. insulin lispro (HumaLOG) (HumaLOG KwikPen 100 units/mL injectable PEN)5- 15 units Subcutaneous three (3) times a day before meals. 150-200 = 5units, 201-250 = 8units, 251-300= 12 units, 301 or greater will take 15unit. Refills: 0. levothyroxine (levothyroxine 125 mcg (0.125 mg) oral tablet)1 tab(s) by mouth once a day (in the morning). metoprolol (metoprolol succinate 50 mg oral TABLET extended release)1 tab(s) by mouth daily at bedtime. omeprazole (omeprazole 20 mg oral delayed release capsule)1 cap by mouth once a day (in the morning). polyethylene glycol 3350 (MiraLax oral powder for reconstitution)17 gram(s) by mouth daily at bedtime as needed constipation. Discontinued aspirin (aspirin 81 mg oral delayed release tablet)1 tab(s) by mouth once a day (in the morning). cyclobenzaprine (cyclobenzaprine 10 mg oral tablet)1 tab(s) by mouth daily at bedtime as needed forspasm. mupirocin topical (mupirocin 2% topical ointment)1 application Topical two (2) times a day. Bilateral intranasal application twice daily x 5 days pre-surgery.. Refills: 0. Follow Up Follow Up with SIMIN ALTMAN APRN-TERRANCE, Neurosurgery When 07/02/2023 01:15 PM EDT Where: [address] [facility] [address] [place] [place] [address]- [phone] Follow Up Appointments See above Follow Up Labs/Studies Discharge Labs No Follow-up Labs Discharge Studies No Follow-up Studies Discharge Diet Resume home diet Discharge Activity See above Condition on Discharge Stable Readmission Risk/Palliative Score LACE Score: 11 (06/19/23 13:49:00) Palliative Total Score: 2 (06/19/23 13:49:00) Discharge Disposition Home Information Provided To Patient Time Spent 20 min Digitally Signed by DIYA CONNER on 06/20/2023 03:45 PM [id number] Discharge Instructions Thank you for allowing [facility] to assist you with your healthcare needs. The following is importantdischarge information regarding your hospital visit. Your Care Team DAWN RIVERA Your Diagnosis Diabetes S/P lumbar laminectomy What to do next Instructions From Your Doctor No aspirin, multivitamins, or NSAIDs (no Aleve, Motrin, ibuprofen) until cleared by Neurosurgery No lifting more than 10 pounds Avoid bending/twisting at the waist WEAR BACK BRACE AT ALL TIMES WHEN SITTING UP, OUT OF BED/AMBULATING or RIDING IN A VEHICLE. No driving for about 2 weeks, no driving while taking narcotic medication Keep surgical incision clean and dry at all times until healed (about 2 weeks) Maintain surgical dressing over incision for 7 days postoperatively, as it is embedded with an antibiotic. After 1 week postop, then remove dressing and begin to change daily using dry sterile gauze for about 7 to 10 days. May leave incision open to air once it is healed. Okay to shower but cover incision with watertight dressing until healed (about 2 weeks) No soaking incision for 6 weeks post-op (no tub baths, hot tubs, saunas, swimming, etc.) If surgical incision becomes red, swollen, painful, opens and/or has drainage on around site, or ifyou develop a fever contact Neurosurgery office immediately. Call Dr Lassiter's office with any additional questions or concerns. Scheduled Follow-Up Appointments Appointment Type When Where Contact InformationNS Post Op 07/02/2023 01:15 PM EDT Neurosurgery [address] [facility] [address] [place] [address] Follow Up Appointments Follow Up with SIMIN ALTMAN, Neurosurgery When 07/02/2023 01:15 PM EDT Where: [address] [facility] [address] [place] [address]- [phone] Follow Up with [facility] will be contacting you for home health. Please call [phone] with any questions. When Within 1-2 days Where: The Following Activity and Diet Have Been Ordered for You No qualifying data available. No qualifying data available. The Following Equipment Has Been Ordered for You No qualifying data available. The Following Treatments Have Been Ordered for You Discharge Labs No qualifying data available. Discharge Radiology No qualifying data available. Other Therapies No qualifying data available. Post Acute Orders No qualifying data available. Someone Will Contact You Regarding These Home Health Referrals Consult Home Health - OT (Home Health OT Consult) - Ordered -- 06/20/23 14:31:00 EDT, Home Therapy Order: OT Eval & Treat, Home Therapy Instruction: Full weight bearing, Reason: Post neurosurgery Consult Home Health - PT (Home Health PT Consult) - Ordered -- 06/20/23 14:31:00 EDT, Home Therapy Order: PT Eval & Treat, Reason: Post neurosurgery, Home Therapy Instruction: Full weight bearing Allergies NKA Medications Please ask your primary doctor or pharmacist before taking any other medication not listed, including over the counter drugs, herbal medications, vitamins and or supplements as they may interact withyour home medications. What How Much When Why Instructions Last Dose New acetaminophen-hydrocodone ([place] 325- 5 mg oral tablet) 1 tab(s) by mouth Every 6 hours as needed for Pain, scale 4-10 S/P lumbar laminectomy Duration: 7 Days Pickup at [id number] New tiZANidine (tiZANidine 4 mg oral tablet) 1 tab(s) by mouth Three (3) times a day as needed for Muscle spasm Pickup at [id number] Unchanged acetaminophen (Tylenol 325 mg oral capsule) 650 Milligram by mouth Every 4 hours as needed for Pain, scale 1-3 Unchanged atorvastatin (atorvastatin 20 mg oral tablet) 1 tab(s) by mouth Daily at bedtime Unchanged citalopram (citalopram 20 mg oral tablet) 1 tab(s) by mouth Once a day (in the morning) Unchanged DME (Alcohol Swabs) See instructions Diabetes 1 box Unchanged DME (Blood Glucose Test Machine) See instructions Diabetes Device as determined by insurance coverage Unchanged DME (Blood Glucose Test Strips) See instructions Diabetes Testing blood glucose QID. 1 bottle of 100 strips Unchanged DME (DME MISCellaneous) See instructions Hypertension Blood Pressure Cuff/ 1KIT Unchanged DME (Lancets) See instructions Testing blood glucose TID.1 box Unchanged docusate-senna (docusate-senna 50 mg-8.6 mg oral tablet) 2 tab(s) by mouth Daily at bedtime Unchanged ferrous sulfate (IRON (ferrous sulfate 325 mg) 65 mg oral tablet) 1 tab(s) by mouth Once a day (in the morning) Take with food. Unchanged furosemide (furosemide 20 mg oral tablet) 1 tab(s) by mouth Once a day (in the morning) Unchanged gabapentin (gabapentin 300 mg oral capsule) 2 cap by mouth Daily at bedtime Unchanged insulin glargine (Lantus 100 units/ mL10 ml vial solution) 8 unit(s) Subcutaneous Daily at bedtime Unchanged insulin glargine (Lantus Solostar Pen 100 units/ mL 3 mL Pen) 8 unit(s) Subcutaneous Once a day (in the morning) Diabetes Duration: 30 Days for AM blood sugar >140 , will take 10U at HS, if AM blood sugar is below 140 will take 8 units at HS OK to change to vial if pens are not covered by insurance. Unchanged insulin lispro (HumaLOG) (HumaLOG KwikPen 100 units/ mL injectable PEN) 5- 15 units Subcutaneous Three (3) times a day before meals Diabetes 150-200 = 5units, 201-250 = 8units, 251-300= 12 units, 301 or greater will take 15unit Unchanged levothyroxine (levothyroxine 125 mcg (0.125 mg) oral tablet) 1 tab(s) by mouth Once a day (in the morning) Unchanged metoprolol (metoprolol succinate 50 mg oral TABLET extended release) 1 tab(s) by mouth Daily at bedtime Unchanged omeprazole (omeprazole 20 mg oral delayed release capsule) 1 cap by mouth Once a day (in the morning) Unchanged polyethylene glycol 3350 (MiraLax oral powder for reconstitution) 17 gram(s) by mouth Daily at bedtime as needed for constipation Pharmacy Information [id number]: [id number] [place], [place] [phone] What How Much When Comments Stop Taking aspirin (aspirin 81 mg oral delayed release tablet) 1 tab(s) by mouth Once a day (in the morning) Stop Taking cyclobenzaprine (cyclobenzaprine 10 mg oral tablet) 1 tab(s) by mouth Daily at bedtime as needed for for spasm Stop Taking mupirocin topical (mupirocin 2% topical ointment) 1 application Topical Two (2) times a day Bilateral intranasal application twice daily x 5 days pre-surgery. Please take this list to your next doctor s visit. Bring all medications you take, including over the counter medications, herbals and other supplements with you to your doctor s visit. Patients and families are reminded to discard old lists and to update any records with all medication providers or retail pharmacies. Education Materials Core Strength Exercises Core exercises help to build strength in the muscles between your ribs and your hips (abdominal muscles). These muscles help to support your body and keep your spine stable. It is important to maintain strength in your core to prevent injury and pain. Some activities, such as yoga and Pilates, can help to strengthen core muscles. You can also strengthen core muscles with exercises at home. It is important to talk to your health care provider before you start a new exercise routine. What are the benefits of core strength exercises? Core strength exercises can: Reduce back pain. Help to rebuild strength after a back or spine injury. Help to prevent injury during physical activity, especially injuries to the back and knees. How to do core strength exercises Repeat these exercises 10 15 times, or until you are tired. Do exercises exactly as told by your health care provider and adjust them as directed. It is normal to feel mild stretching, pulling, tightness, or discomfort as you do these exercises. If you feel any pain while doing these exercises, stop. If your pain continues or gets worse when doing core exercises, contact your health care provider. You may want to use a padded yoga or exercise mat for strength exercises that are done on the floor. Bridging 1. Lie on your back on a firm surface with your knees bent and your feet flat on the floor. 2. Raise your hips so that your knees, hips, and shoulders form a straight line together. Keep your abdominal muscles tight. 3. Hold this position for 3 5 seconds. 4. Slowly lower your hips to the starting position. 5. Let your muscles relax completely between repetitions. Single-leg bridge 1. Lie on your back on a firm surface with your knees bent and your feet flat on the floor. 2. Raise your hips so that your knees, hips, and shoulders form a straight line together. Keep your abdominal muscles tight. 3. Lift one foot off the floor, then completely straighten that leg. 4. Hold this position for 3 5 seconds. 5. Put the straight leg back down in the bent position. 6. Slowly lower your hips to the starting position. 7. Repeat these steps using your other leg. Side bridge 1. Lie on your side with your knees bent. Prop yourself up on the elbow that is near the floor. 2. Using your abdominal muscles and your elbow that is on the floor, raise your body off the floor. Raise your hip so that your shoulder, hip, and foot form a straight line together. 3. Hold this position for 10 seconds. Keep your head and neck raised and away from your shoulder (in their normal, neutral position). Keep your abdominal muscles tight. 4. Slowly lower your hip to the starting position. 5. Repeat and try to hold this position longer, working your way up to 30 seconds. Abdominal crunch 1. Lie on your back on a firm surface. Bend your knees and keep your feet flat on the floor. 2. Cross your arms over your chest. 3. Without bending your neck, tip your chin slightly toward your chest. 4. Tighten your abdominal muscles as you lift your chest just high enough to lift your shoulder bladesoff of the floor. Do not hold your breath. You can do this with short lifts or long lifts. 5. Slowly return to the starting position. Bird dog 1. Get on your hands and knees, with your legs shoulder-width apart and your arms under your shoulders. Keep your back straight. 2. Tighten your abdominal muscles. 3. Raise one of your legs off the floor and straighten it. Try to keep it parallel to the floor. 4. Slowly lower your leg to the starting position. 5. Raise one of your arms off the floor and straighten it. Try to keep it parallel to the floor. 6. Slowly lower your arm to the starting position. 7. Repeat with the other arm and leg. If possible, try raising a leg and arm at the same time, on opposite sides of the body. For example, raise your left hand and your right leg. Plank 1. Lie on your belly. 2. Prop up your body onto your forearms and your feet, keeping your legs straight. Your body should make a straight line between your shoulders and feet. 3. Hold this position for 10 seconds while keeping your abdominal muscles tight. 4. Lower your body to the starting position. 5. Repeat and try to hold this position longer, working your way up to 30 seconds. Cross-core strengthening 1. Stand with your feet shoulder-width apart. 2. Hold a ball out in front of you. Keep your arms straight. 3. Tighten your abdominal muscles and slowly rotate at your waist from side to side. Keep your feet flat. 4. Once you are comfortable, try repeating this exercise with a heavier ball. Top core strengthening 1. Stand about 18 inches (46 cm) in front of a wall, with your back to the wall. 2. Keep your feet flat and shoulder-width apart. 3. Tighten your abdominal muscles. 4. Bend your hips and knees. 5. Slowly reach between your legs to touch the wall behind you. 6. Slowly stand back up. 7. Raise your arms over your head and reach behind you. 8. Return to the starting position. General tips Do not do any exercises that cause pain. If you have pain while exercising, talk to your health care provider. Always stretch before and after doing these exercises. This can help prevent injury. Maintain a healthy weight. Ask your health care provider what weight is healthy for you. Contact a health care provider if: You have back pain that gets worse or does not go away. You feel pain while doing core strength exercises. Get help right away if: You have severe pain that does not get better with medicine. Summary Core exercises help to build strength in the muscles between your ribs and your waist. Core muscles help to support your body and keep your spine stable. Some activities, such as yoga and Pilates, can help to strengthen core muscles. Core strength exercises can help back pain and can prevent injury. If you feel any pain while doing core strength exercises, stop. This information is not intended to replace advice given to you by your health care provider. Make sure you discuss any questions you have with your health care provider. Document Released: 07/18/2017 Document Revised: 06/18/2019 Document Reviewed: 07/18/2017 Elsevier Patient Education 2020 [employer] Additional Information VACCINATE! IT SAVES LIVES! Members of the community who have not yet received the COVID-19 vaccine and would like to receive it can visit one of [facility] vaccine clinics. There are many vaccine clinic locations within the [facility]. For locations and available times, please visit [email or web address] It is important to note that some COVID mobile vaccine clinics are held outdoors and may be canceled in rainy or stormy conditions. To learn more about pediatric vaccinations (ages 5-11), we invite you to visit the [employer] webpage. [email or web address]/[email or web address] [email or web address] learn more about the COVID-19 vaccine, we invite you to visit the CDC website for a list of frequently asked questions.https://www.cdc.gov/coronavirus/2019-ncov/vaccines/faq.html [facility] Patient Portal Access Instructions: Stay connected with your healthcare team and access your personal medical information anytime with the [facility] Patient Portal. Please follow the directions below to create your [facility] account: 1.Access the email account you provided upon registration to the hospital/physician office.2.Look for an invitation email from [facility].3.Open the email and access the invitation link: AcceptInvitation to [facility].4.Fill in the required hurt to create your account. To access your account, visit [facility]. Click the blue button labeled Access Patient Portal and then log in with the username and password that you created in the steps above. You will be able to view your test results, lab results, a summary of your visits, upcoming appointments and more. There is also a convenient messaging option where you can send secure messages to your p rovider. In addition, you will have the ability to download any documents or summaries to your computer and/or send the information securely to a physician. Remember that your healthcare information is confidential, so carefully consider who you will allowto register on the [facility] Patient Portal for access to your information. You can also access the [facility] on the [facility]. Simply click on Patient Portal and then log into your account. If you would like to receive a full copy of your medical records, please contact the [facility] Medical Records Department by calling [phone], Sunday through Sunday between 8 a.m. and 4:30 p.m. HOW TO SAFELY DISPOSE OF PRESCRIPTION MEDICATIONS Please use one of the following methods to safely dispose of your unused medications. 1.Use a drug disposal kit: the drug disposal pouch allows you to safely discard your old and unuseddrugs. Ask your nurse to give you one when you are discharged.2.Visit a local take-back location: Many local pharmacies and police departments have programs that collect old and unwanted prescriptiondrugs. Call your local pharmacy or go to http://MobileIgniter/3D2Hy3s to find one close to you.3.Make use of household items: Use cat litter or old coffee grounds to dispose medications if other options arenot available. Mix your drugs with these household products, seal them in an airtight container andthrow it into the garbage. Call [facility]: [phone] to be sure your drugs can be [...] a CHART COPY. Signatures Patient Education Materials Core Strength Exercises Medication Leaflets My discharge plan and instructions have been reviewed and explained to me and I,JAMIE WALSH understand my current condition and have read and understand these discharge instructions. I have received a written copy of the plan/instructions. If I have questions, I am aware that I should contact my doctor. 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 Prior to surgery, she was having complaints of deep pain in her back. She had an x-ray of her thoracic spine, which demonstrated spinal fixation hardware uncertain location of the left-sided screw at the T11-[address] of the lumbar spine was then obtained, which demonstrated loosening of the left T12 transpedicular screw. Due to these findings, it was discussed with her that surgery could be done to replace the screw. She elected to proceed with surgery. During surgery, the pedicle screw was found to be loose, therefore it was removed and replaced witha larger screw at a different angle. Good purchase was obtained per Dr. Lassiter. Postoperatively, she is awake, alert, and oriented x 3. She is complaining of incisional pain. She states she does not have the deep pain she had prior to surgery. She is moving all 4 extremities without difficulty. Dorsiflexion and plantarflexion are strong. She denies any numbness or tingling in her upper or lower extremities. She flexes her knee against resistance without difficulty. Dressing is dry and intact. Drain output 30 cc overnight; 75 cc on afternoon shift yesterday. Objective Vitals and Measurements T: 36.6 C (Oral) TMIN: 36 C (Temporal Artery) TMAX: 37.0 C (Oral) HR: 77(Apical) RR: 18 BP: 128/63 SpO2: 93% HT: 149.9 cm WT: 95.7 kg BMI: 42.59 Intake and Output 7AM Yesterday to 7AM Today Intake and Output (Last 24 hours) Intake Administration Information 1120.00 Oral Intake 840.00 Output Surgical Drain, Tube Output: 150.00 Urinary Catheter Output: 1150.00 Intra-Op EBL 30.00 Stool Count 0.00 Diaper Count 4.00 Emesis Count 0.00 Total Summary Total Intake 1960.00 Total Output 1330.00 Fluid Balance 630.00 Physical Exam Weight Dosing Weight: 95.7 kg (06/19/23) Dosing Weight: 95.7 kg (06/19/23) Medications Medications (27) Active Scheduled: (15) atorvastatin 20 mg tablet 20 mg 1 tab(s), Oral, qHS ceFAZolin 1 gram(s) 10 mL, Topical (INT), PREOP pharm citalopram 20 mg Tablet 20 mg 1 tab(s), Oral, qAM docusate-senna (Senokot S) 50 mg-8.6 mg Tablet 2 tab(s), Oral, qHS ferrous sulfate 325 mg Tablet 325 mg 1 tab(s), Oral, qAM furosemide 20 mg tablet 20 mg 1 tab(s), Oral, qAM gabapentin 300 mg Capsule 600 mg 2 cap(s), Oral, qHS insulin glargine 8 unit(s) 0.08 mL, Subcutaneous (INT), qHS insulin glargine 8 unit(s) 0.08 mL, Subcutaneous (INT), qAM insulin lispro 100 units/mL Soln (3 mL) 5- 15 units, Subcutaneous, TIDAC levothyroxine 125 mcg tablet 125 mcg 1 tab(s), Oral, qAM lidocaine 1% (MPF) 2 mL vial pf 2.5 mg 0.25 mL, Intradermal, prep pharm metoprolol succinate 50 mg ER tablet 50 mg 1 tab(s), Oral, qHS pantoprazole 20 mg EC tablet 20 mg 1 tab(s), Oral, qDayAC vancomycin PMX 1,500 mg 300 mL, IV Piggyback, q12h Continuous: (2) NS (0.9% nacl) 1,000 mL 1,000 mL, Intravenous, 20 mL/hr NS (0.9% nacl) 1,000 mL 1,000 mL, Intravenous, 75 mL/hr PRN: (10) acetaminophen 325 mg Tablet 650 mg 2 tab(s), Oral, q4h acetaminophen-HYDROcodone 325-10 mg tablet 1 tab(s), Oral, q4h acetaminophen-HYDROcodone 325-5 mg tablet 1 tab(s), Oral, q4h Al hydrox/Mg hydrox/simethicone 200-200-20 mg/5 mL Susp UD 30 mL, Oral, q2h dextrose 50% Solution Disp syringe 50 mL 12.5 gram(s) 25 mL, IV Push, AsDirected docusate sodium 100 mg Capsule 100 mg 1 cap(s), Oral, BID HYDROmorphone 0.5 mg/0.5 mL PF syringe 0.5 mg 0.5 mL, IV Push, q2h ondansetron 2 mg/ 1 mL 2 mL INJ 4 mg 2 mL, IV Push, q4h polyethylene glycol 3350 - UD packet 17 gram(s) 15 mL, Oral, qHS tiZANidine 4 mg tablet 4 mg 1 tab(s), Oral, TID Lab Results 06/19 05:42 BUN: 11.0 Creatinine Lvl (s): 0.58 EKG No qualifying data available. Assessment/Plan S/P REVISION OF LEFT THORACIC 12 PEDICLE SCREW: -Overall, patient is doing well postoperatively. Dr. Lassiter discussed with her, that the screw was noted to be loose during surgery and it was replaced with good purchase obtained with the new screw. -She mentioned wanting to be discharged to rehab. -PT/OT was consulted to evaluate. Spoke with the therapist and they stated the patient did well andfeels she would be appropriate for home-going. Stated as they worked with her more, she did become more confident and seemed as though she would be agreeable to going home. -She was receiving home PT/OT prior to admission. Will reorder. -Will reevaluate drain output this afternoon. If less than 30, she will be cleared for discharge. Otherwise she will be kept an additional day and likely discharged home tomorrow. -2-week follow-up appointment has been arranged. Questions answered. Wound care discussed. Please see Dr. Lassiter's addendum for further details recommendations. Anticipated Date of Discharge Today or tomorrow depending on drain output Time Spent 15 min Digitally Signed by DIYA CONNER on 06/20/2023 09:09 AM Digitally Signed by NESTOR LASSITER MD on 06/20/2023 09:36 AM [id number] Nurse Progress note I was present for the student nurse's admission and assessment. Digitally Signed by Anna Piña RN on 06/19/2023 04:16 PM [id number] Anesthesiology Consult note Patient: JAMIE WALSH Age: 62 years Sex: Female : 1960 Associated Diagnoses: None Author: JUNE THOMAS MD Postoperative Information Post Operative Info: Post op day: Post Anesthesia Care Unit. Patient location: PACU. Assessment Postanesthesia assessment Vitals: Vital signs from flowsheet : Vital Signs 06/19/2023 12:11 EDT Temperature Temporal Artery 36 DegC Heart Rate Monitored 88 bpm Respiratory Rate 16 br/min Systolic Blood Pressure Non-Invasive 115 mmHg Diastolic Blood Pressure Non-Invasive 65 mmHg Mean Arterial Pressure (NBP) 77 mmHg 06/19/2023 11:54 EDT Heart Rate Monitored 90 bpm Systolic Blood Pressure Non-Invasive 109 mmHg Diastolic Blood Pressure Non-Invasive 63 mmHg Mean Arterial Pressure (NBP) 77 mmHg 06/19/2023 11:35 EDT Heart Rate Monitored 90 bpm Respiratory Rate 16 br/min Systolic Blood Pressure Non-Invasive 108 mmHg Diastolic Blood Pressure Non-Invasive 58 mmHg LOW Mean Arterial Pressure (NBP) 73 mmHg 06/19/2023 11:09 EDT Heart Rate Monitored 88 bpm Respiratory Rate 16 br/min Systolic Blood Pressure Non-Invasive 124 mmHg Diastolic Blood Pressure Non-Invasive 79 mmHg Mean Arterial Pressure (NBP) 94 mmHg 06/19/2023 10:50 EDT Heart Rate Monitored 88 bpm Respiratory Rate 16 br/min Systolic Blood Pressure Non-Invasive 132 mmHg Diastolic Blood Pressure Non-Invasive 78 mmHg Mean Arterial Pressure (NBP) 95 mmHg 06/19/2023 10:34 EDT Heart Rate Monitored 90 bpm Respiratory Rate 18 br/min Systolic Blood Pressure Non-Invasive 128 mmHg Diastolic Blood Pressure Non-Invasive 69 mmHg Mean Arterial Pressure (NBP) 82 mmHg 06/19/2023 10:19 EDT Heart Rate Monitored 88 bpm Respiratory Rate 18 br/min Systolic Blood Pressure Non-Invasive 118 mmHg Diastolic Blood Pressure Non-Invasive 71 mmHg Mean Arterial Pressure (NBP) 85 mmHg 06/19/2023 10:04 EDT Temperature Temporal Artery 36.7 DegC Heart Rate Monitored 88 bpm Respiratory Rate 18 br/min Systolic Blood Pressure Non-Invasive 117 mmHg Diastolic Blood Pressure Non-Invasive 71 mmHg Mean Arterial Pressure (NBP) 87 mmHg 06/19/2023 10:00 EDT Respiratory Rate - Anes 4 br/min br/min 06/19/2023 9:55 EDT Respiratory Rate - Anes 12 br/min br/min 06/19/2023 9:50 EDT Respiratory Rate - Anes 0 br/min br/min 06/19/2023 9:47 EDT Systolic Blood Pressure Non-Invasive 98 mmHg mmHg Diastolic Blood Pressure Non-Invasive 66 mmHg mmHg 06/19/2023 9:45 EDT Heart Rate Monitored 93 bpm bpm Respiratory Rate - Anes 12 br/min br/min 06/19/2023 9:44 EDT Systolic Blood Pressure Non-Invasive 125 mmHg mmHg Diastolic Blood Pressure Non-Invasive 80 mmHg mmHg 06/19/2023 9:41 EDT Systolic Blood Pressure Non-Invasive 121 mmHg mmHg Diastolic Blood Pressure Non-Invasive 82 mmHg mmHg 06/19/2023 9:40 EDT Heart Rate Monitored 91 bpm bpm Respiratory Rate - Anes 12 br/min br/min 06/19/2023 9:38 EDT Systolic Blood Pressure Non-Invasive 141 mmHg mmHg Diastolic Blood Pressure Non-Invasive 84 mmHg mmHg 06/19/2023 9:35 EDT Heart Rate Monitored 90 bpm bpm Respiratory Rate - Anes 12 br/min br/min Systolic Blood Pressure Non-Invasive 127 mmHg mmHg Diastolic Blood Pressure Non-Invasive 84 mmHg mmHg 06/19/2023 9:32 EDT Systolic Blood Pressure Non-Invasive 131 mmHg mmHg Diastolic Blood Pressure Non-Invasive 79 mmHg mmHg 06/19/2023 9:30 EDT Heart Rate Monitored 88 bpm bpm Respiratory Rate - Anes 12 br/min br/min 06/19/2023 9:29 EDT Systolic Blood Pressure Non-Invasive 121 mmHg mmHg Diastolic Blood Pressure Non-Invasive 78 mmHg mmHg 06/19/2023 9:26 EDT Systolic Blood Pressure Non-Invasive 116 mmHg mmHg Diastolic Blood Pressure Non-Invasive 81 mmHg mmHg 06/19/2023 9:25 EDT Heart Rate Monitored 87 bpm bpm Respiratory Rate - Anes 12 br/min br/min 06/19/2023 9:23 EDT Systolic Blood Pressure Non-Invasive 130 mmHg mmHg Diastolic Blood Pressure Non-Invasive 81 mmHg mmHg 06/19/2023 9:20 EDT Heart Rate Monitored 84 bpm bpm Respiratory Rate - Anes 12 br/min br/min Systolic Blood Pressure Non-Invasive 123 mmHg mmHg Diastolic Blood Pressure Non-Invasive 86 mmHg mmHg 06/19/2023 9:17 EDT Systolic Blood Pressure Non-Invasive 120 mmHg mmHg Diastolic Blood Pressure Non-Invasive 81 mmHg mmHg 06/19/2023 9:15 EDT Heart Rate Monitored 81 bpm bpm Respiratory Rate - Anes 12 br/min br/min 06/19/2023 9:14 EDT Systolic Blood Pressure Non-Invasive 120 mmHg mmHg Diastolic Blood Pressure Non-Invasive 80 mmHg mmHg 06/19/2023 9:11 EDT Systolic Blood Pressure Non-Invasive 114 mmHg mmHg Diastolic Blood Pressure Non-Invasive 77 mmHg mmHg 06/19/2023 9:10 EDT Heart Rate Monitored 79 bpm bpm Respiratory Rate - Anes 12 br/min br/min 06/19/2023 9:08 EDT Systolic Blood Pressure Non-Invasive 113 mmHg mmHg Diastolic Blood Pressure Non-Invasive 80 mmHg mmHg 06/19/2023 9:05 EDT Heart Rate Monitored 77 bpm bpm Respiratory Rate - Anes 12 br/min br/min Systolic Blood Pressure Non-Invasive 113 mmHg mmHg Diastolic Blood Pressure Non-Invasive 74 mmHg mmHg 06/19/2023 9:02 EDT Systolic Blood Pressure Non-Invasive 95 mmHg mmHg Diastolic Blood Pressure Non-Invasive 70 mmHg mmHg 06/19/2023 9:00 EDT Heart Rate Monitored 76 bpm bpm Respiratory Rate - Anes 12 br/min br/min 06/19/2023 8:59 EDT Systolic Blood Pressure Non-Invasive 98 mmHg mmHg Diastolic Blood Pressure Non-Invasive 73 mmHg mmHg 06/19/2023 8:56 EDT Systolic Blood Pressure Non-Invasive 96 mmHg mmHg Diastolic Blood Pressure Non-Invasive 81 mmHg mmHg 06/19/2023 8:55 EDT Heart Rate Monitored 75 bpm bpm Respiratory Rate - Anes 12 br/min br/min 06/19/2023 8:53 EDT Systolic Blood Pressure Non-Invasive 92 mmHg mmHg Diastolic Blood Pressure Non-Invasive 69 mmHg mmHg 06/19/2023 8:50 EDT Heart Rate Monitored 76 bpm bpm Respiratory Rate - Anes 12 br/min br/min Systolic Blood Pressure Non-Invasive 90 mmHg mmHg Diastolic Blood Pressure Non-Invasive 67 mmHg mmHg 06/19/2023 8:47 EDT Systolic Blood Pressure Non-Invasive 101 mmHg mmHg Diastolic Blood Pressure Non-Invasive 71 mmHg mmHg 06/19/2023 8:45 EDT Heart Rate Monitored 77 bpm bpm Respiratory Rate - Anes 12 br/min br/min 06/19/2023 8:44 EDT Systolic Blood Pressure Non-Invasive 104 mmHg mmHg Diastolic Blood Pressure Non-Invasive 71 mmHg mmHg 06/19/2023 8:41 EDT Systolic Blood Pressure Non-Invasive 105 mmHg mmHg Diastolic Blood Pressure Non-Invasive 74 mmHg mmHg 06/19/2023 8:40 EDT Heart Rate Monitored 85 bpm bpm Respiratory Rate - Anes 12 br/min br/min 06/19/2023 8:38 EDT Systolic Blood Pressure Non-Invasive 121 mmHg mmHg Diastolic Blood Pressure Non-Invasive 79 mmHg mmHg 06/19/2023 8:35 EDT Heart Rate Monitored 79 bpm bpm Respiratory Rate - Anes 12 br/min br/min Systolic Blood Pressure Non-Invasive 130 mmHg mmHg Diastolic Blood Pressure Non-Invasive 77 mmHg mmHg 06/19/2023 8:32 EDT Systolic Blood Pressure Non-Invasive 135 mmHg mmHg Diastolic Blood Pressure Non-Invasive 80 mmHg mmHg 06/19/2023 8:30 EDT Heart Rate Monitored 91 bpm bpm Respiratory Rate - Anes 12 br/min br/min 06/19/2023 8:29 EDT Systolic Blood Pressure Non-Invasive 140 mmHg mmHg Diastolic Blood Pressure Non-Invasive 94 mmHg mmHg 06/19/2023 8:26 EDT Systolic Blood Pressure Non-Invasive 104 mmHg mmHg Diastolic Blood Pressure Non-Invasive 77 mmHg mmHg 06/19/2023 8:25 EDT Heart Rate Monitored 77 bpm bpm Respiratory Rate - Anes 14 br/min br/min 06/19/2023 8:23 EDT Systolic Blood Pressure Non-Invasive 110 mmHg mmHg Diastolic Blood Pressure Non-Invasive 74 mmHg mmHg 06/19/2023 8:20 EDT Heart Rate Monitored 77 bpm bpm Respiratory Rate - Anes 14 br/min br/min Systolic Blood Pressure Non-Invasive 108 mmHg mmHg Diastolic Blood Pressure Non-Invasive 74 mmHg mmHg 06/19/2023 8:17 EDT Systolic Blood Pressure Non-Invasive 104 mmHg mmHg Diastolic Blood Pressure Non-Invasive 78 mmHg mmHg 06/19/2023 8:15 EDT Heart Rate Monitored 73 bpm bpm Respiratory Rate - Anes 10 br/min br/min 06/19/2023 8:14 EDT Systolic Blood Pressure Non-Invasive 106 mmHg mmHg Diastolic Blood Pressure Non-Invasive 70 mmHg mmHg 06/19/2023 8:11 EDT Systolic Blood Pressure Non-Invasive 87 mmHg mmHg Diastolic Blood Pressure Non-Invasive 60 mmHg mmHg 06/19/2023 8:10 EDT Heart Rate Monitored 83 bpm bpm Respiratory Rate - Anes 10 br/min br/min 06/19/2023 8:08 EDT Systolic Blood Pressure Non-Invasive 96 mmHg mmHg Diastolic Blood Pressure Non-Invasive 64 mmHg mmHg 06/19/2023 8:05 EDT Heart Rate Monitored 65 bpm bpm Respiratory Rate - Anes 10 br/min br/min Systolic Blood Pressure Non-Invasive 95 mmHg mmHg Diastolic Blood Pressure Non-Invasive 69 mmHg mmHg 06/19/2023 8:02 EDT Systolic Blood Pressure Non-Invasive 83 mmHg mmHg Diastolic Blood Pressure Non-Invasive 60 mmHg mmHg 06/19/2023 8:00 EDT Temperature (Route Not Specified) 33.92 DegC DegC Heart Rate Monitored 77 bpm bpm Respiratory Rate - Anes 10 br/min br/min 06/19/2023 7:59 EDT Systolic Blood Pressure Non-Invasive 94 mmHg mmHg Diastolic Blood Pressure Non-Invasive 68 mmHg mmHg 06/19/2023 7:56 EDT Systolic Blood Pressure Non-Invasive 109 mmHg mmHg Diastolic Blood Pressure Non-Invasive 78 mmHg mmHg 06/19/2023 7:55 EDT Temperature (Route Not Specified) 34.06 DegC DegC Heart Rate Monitored 75 bpm bpm Respiratory Rate - Anes 10 br/min br/min 06/19/2023 7:53 EDT Systolic Blood Pressure Non-Invasive 108 mmHg mmHg Diastolic Blood Pressure Non-Invasive 73 mmHg mmHg 06/19/2023 7:50 EDT Temperature (Route Not Specified) 34.28 DegC DegC Heart Rate Monitored 71 bpm bpm Respiratory Rate - Anes 10 br/min br/min Systolic Blood Pressure Non-Invasive 97 mmHg mmHg Diastolic Blood Pressure Non-Invasive 59 mmHg mmHg 06/19/2023 7:47 EDT Systolic Blood Pressure Non-Invasive 115 mmHg mmHg Diastolic Blood Pressure Non-Invasive 80 mmHg mmHg 06/19/2023 7:45 EDT Temperature (Route Not Specified) 34.55 DegC DegC Heart Rate Monitored 72 bpm bpm Respiratory Rate - Anes 12 br/min br/min 06/19/2023 7:44 EDT Systolic Blood Pressure Non-Invasive 86 mmHg mmHg Diastolic Blood Pressure Non-Invasive 59 mmHg mmHg 06/19/2023 7:41 EDT Systolic Blood Pressure Non-Invasive 113 mmHg mmHg Diastolic Blood Pressure Non-Invasive 77 mmHg mmHg 06/19/2023 7:40 EDT Temperature (Route Not Specified) 34.83 DegC DegC Heart Rate Monitored 75 bpm bpm Respiratory Rate - Anes 12 br/min br/min 06/19/2023 7:38 EDT Systolic Blood Pressure Non-Invasive 82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
--- NOTE | 2024-09-03 07:35 | STRESSREP ---
Stress Test Report Pharmacologic myocardial perfusion stress test. [64-year-old lady with a history of chest pain .] Resting EKG demonstrates sinus rhythm with a rate of 80 bpm. Resting blood pressure is 138/74 mmHg. 0.4 mg of regadenoson was infused per usual protocol followed by rapid intravenous saline flush injection. Continuous EKG monitoring was performed. The maximum heart rate was 91 bpm which was 59% of max impacted heart rate the maximum workload was 1 metabolic equivalent. At rest there were no ST or T wave changes noted to suggest ischemia and at peak infusion nonspecific ST changes were noted which did not meet the criteria for ischemia. No clinical angina is noted. The final blood pressure was 120/70 mmHg. Myocardial perfusion protocol. 11 point mCi of technetium 99m sestamibi was injected at rest. 0.4 mg of regadenoson was infused per usual protocol. At peak infusion 33 point mCi of technetium 99m sestamibi was injected stress images were obtained stress and rest images were reconstructed and compared in the short axis vertical long and horizontal long axis. Gated images were also obtained. Perfusion SPECT analysis: Review of the stress images demonstrate normal uptake of tracer noted in all areas of the myocardium. The resting images similar demonstrated normal uptake of tracer noted in all areas of the myocardium. No areas of reversibility are noted to suggest ischemia and no previous infarct is noted. Gated SPECT analysis: The gated ejection fraction is 72%. Conclusion: Normal pharmacologic myocardial perfusion stress test. Preserved ejection fraction.
== END | disposition home or self-care (01) ==
LOC: CVS 06:50
PROVIDERS: PCP Family Medicine; Referring Provider Nurse Practitioner Gerontology; Visit Provider Nurse Practitioner Gerontology
DX: I25.10 Atherosclerotic heart disease of native coronary artery without angina pectoris (principal)
CPT/HCPCS: 78452; 93017; A9500; A4216; J2785

== ENCOUNTER → 2024-09-04 | Outpatient (CLI) | payer MEDICARE, SELFPAY ==
[2022-03-31 10:38] VITALS: BMI 43.2
--- NOTE | 2024-09-04 09:57 | BD_ITS ---
PROCEDURE: DEXA BONE DENSITY/APPEND SKEL 09/04/2024 REASON FOR EXAM: F, age 64 y/o . Postmenopausal. TECHNIQUE: DEXA BONE DENSITY/APPEND SKEL COMPARISON: None FINDINGS: BMD and T-SCORES Left femoral neck: 0.617 g/cm2, T-score -2.1 Femoral neck comparison data not recommended for monitoring change. Left total hip: 0.761 g/cm2, T-score -1.5 Right femoral neck: 0.685 g/cm2, T-score -1.5 Femoral neck comparison data not recommended for monitoring change. Right total hip: 0.756 g/cm2, T-score -1.5 Left 1/3 radius: 0.500 g/cm2, T-score -1.5 The World Health Organization has defined the following categories based on bone density: Normal bone density: T-score equal to or greater than -1.0 Osteopenia: T-score between -1.0 and -2.5 Osteoporosis: T-score equal to or less than -2.5 The patient does meet the pharmacological treatment recommendations for prevention of osteoporosis. BD/Dexa Bone Density/Append Skel IMPRESSION: OSTEOPENIA. Recommend follow-up as clinically warranted. Reading Location: [facility]
== END | disposition home or self-care (01) ==
LOC: OPBD 09:56
PROVIDERS: PCP Family Medicine; Referring Provider Family Medicine; Visit Provider Family Medicine
DX: Z13.820 Encounter for screening for osteoporosis (principal); M81.0 Age-related osteoporosis without current pathological fracture
CPT/HCPCS: 77081

== ENCOUNTER 2025-01-23 19:28 | Emergency (ER) | payer MEDICARE, SELFPAY ==
[2022-03-31 10:38] VITALS: BMI 43.2
[2025-01-23] VITALS (8 sets, daily range): BP systolic 114–155; BP diastolic 70–81; PULSE 94–111; RESP 18–26; TEMP 36.6–36.9; O2SAT 94–97; BMI 37.8
--- OUTSIDE RECORDS SUMMARY | 2025-01-23 20:04 | XMS RPT_ITS | CCD ---
Author Organization [facility] Care Team Providers Care Guard Range Name Role Phone Lilly Rosenbaum Unavailable Unavailable VOLL BLAINE Vaughan Unavailable Unavailable XIOMARA CASTAÑEDA Unavailable Unavailable ZOYA, ROXANA-CHI Attending Unavailable DAWN RIVERA Primary Care Unavailable Dr. Dawn Rivera Primary Care Provider Dr. Dawn Rivera Referring Provider MD Tony Ríos Attending Provider [phone] Dr. Seun Blair Attending Provider DAWN RIVERA Primary Care Physician Chuy Rounding Nurse, Randy Unavailable Vaishnavi CHINO MD, DR HAYES Primary Care Physician Pau Maynard Unavailable Unavailable Dr. Dawn Rivera Primary Care Provider Dr. Dawn Rivera Referring Provider DANISHA Swift Attending Provider NESTOR LASSITER MD [...] RIVERA Primary Care Unavailable NESTOR LASSITER MD Admitting Unavailable JUNE THOMAS MD Consulting Unavailable MIDAWN HARMON Consulting Unavailable ROSEANNE CHOUDHURY MD Consulting Unavailable MIEDKIKE, DAWN Primary Care Unavailable NESTOR LASSITER MD Attending Unavailable NESTOR LASSITER MD Admitting Unavailable NESTOR LASSITER MD Consulting Unavailable HOSPITALIST, LYNDA Consulting Unavailable LASKOVSKI DO, KENIA Consulting UnavailNESTOR Pierce MD Attending Unavailable RK RIVERANAH Primary Care Unavailable NESTOR LASSITER MD Attending Unavailable DR FREDDY CHINO MD Primary Care Unavailable NESTOR LASSITER MD Attending Unavailable DAWN RIVERA Primary Care Unavailable SIMIN DISLA Attending Unavail able DAWN RIVERA Primary Care Unavailable JOHNA ESCAMILLA Admitting Unavailable JOHAN ESCAMILLA Attending Unavailable JOHAN ESCAMILLA Primary Care Unavailable DAWN RIVERA Consulting Unavailable DAWN RIVERA Referring Unavailable PROVIDER, UNKNOWN Consulting Unavailable PROVIDER, UNKNOWN Consulting Unavailable FREDDY CHINO MD Admitting Unavailable FREDDY CHINO MD Attending Unavailable FREDDY CHINO MD Primary Care Unavailable DAWN RIVERA Consulting Unavailable PROVIDER, UNKNOWN Consulting Unavailable PROVIDER, UNKNOWN Consulting Unavailable DINORAH SWIFT Admitting Unavailable DINORAH SWIFT Attending Unavailable DINORAH SWIFT Primary Care Unavailable RK RIVERANAH Consulting Unavailable PROVIDER, UNKNOWN Consulting Unavailable PROVIDER, UNKNOWN Consulting Unavailable Dr. Dawn Rivera MD Primary Care Provider Dr. Dawn Rivera MD Referring Provider [phone] Justice LUCIO-CClotilde Attending Provider Feliciano LUCIO-CDinorah Attending Provider Justice LUCIO-CClotilde Referring Provider Justice LUCIO-Clotilde Murdock Other Provider Johnnie BORGES, Dr. Kohli Attending Provider Dr. Dawn Rivera MD Attending Provider [phone] Justice LUCIO, Clotilde Attending Unavailable Dawn Rivera Primary Care Unavailable Clotilde Rendon NP Referring Unavailable Dawn Rivera Primary Care Unavailable Justice LUCIO, Clotilde Attending Unavailable Miedel, Dawn Primary Care Unavailable Justice TAPE SEWING MACHINE OPERATOR, Clotilde Consulting Unavailable Seun Blair Attending Unavailable Clotilde Rendon NP Referring Unavailable Miedel, Dawn Referring Unavailable Dinorah Swift Attending Unavailable Miedel, Dawn Primary Care Unavailable Miedel, Dawn Referring Unavailable Justice LUCIO, Clotilde Attending Unavailable Miedel, Dawn Primary Care Unavailable Miedel, Dawn Referring Unavailable Dinorah Swift Attending Unavailable Miedel, Dawn Primary Care Unavailable Miedel, Dawn Referring Unavailable Miedel, Dawn Primary Care Unavailable Seun Blair Attending Unavailable Miedel, Dawn Primary Care Unavailable Gareth Sevilla Attending Unavailable Miedel, Dawn Primary Care Unavailable Justice TAPE SEWING MACHINE OPERATOR, Clotilde Referring Unavailable Seun Blair Attending Unavailable Waedel, Dawn Primary Care Unavailable Miedel, Dawn Referring Unavailable Miedel, Dawn Attending Unavailable Medications Current Medications Medication Drug Class(es) Dates Sig (Normalized) Sig (Original) acetaminophen 325 mg oral capsule (11 sources) Start: 01-17-2023 Tylenol 325 mg oral capsule Dose : 650 mg =, Oral, q4h, PRN Pain, scale 1-3, 0 Refill(s) Start Date: 01/17/23 Status: Ordered acetaminophen 325 mg / HYDROcodone bitartrate 5 mg oral tablet (11 sources) Opioid Agonist Start: 06-20-2023 End: 06-27-2023 York 325- 5 mg oral tablet Dose = 1 tab(s), Oral, q6hr, PRN Pain, scale 4-10, X 7 day(s), # 28 tab(s), 0 Refill(s), Pharmacy: [id number], S/P lumbar laminectomy, 149.9, cm, 06/19/23 12:54:00 EDT, Height, 95.7, kg, 06/19/23 12:54:00 EDT, Dosing Weight Start Date: 06/20/23 Stop Date: 06/27/23 Status: Ordered Start: 01-17-2023 End: 01-24-2023 York 325- 5 mg oral tablet 1-2 tab(s), [...] HOURS NEEDED as needed for Pain 60 0 June 12, 2017 12:00am July 06, 2017 9:09am Osteoarthritis of knee Unilateral primary osteoarthritis, unspecified knee Start: 06-12-2017 End: 07-06-2017 take 1 tablet by mouth every six hours as needed Hydrocodone-Acetaminophen Discontinued 1 - 2 TABLET PO EVERY 6 HOURS NEEDED 60 June 12, 2017 12:00am July 06, 2017 9:09am Start: 08-30-2016 take 1-2 tablets by mouth every six hours as needed NORCO 5-325 MG TABS 1-2 tablets by mouth every 6 hours as needed HYDROCODONE-ACETAMINOPHEN [id number] Noelle Todd RN Alcohol Swabs (11 sources) [...] 20, 2017 4:37pm May 01, 2017 9:38pm heart health Start: 04-17-2014 End: 04-18-2017 take 1 tablet by mouth once daily Aspirin 81 MG tablet,chewable Discontinued 81 mg PO DAILY@0800 April 17, 2014 1:00am April 18, 2017 5:32pm BLOOD THINNER Start: 11-26-2013 take 1 tablet by crow th once daily ASPIRIN 81 MG TABS One tablet by mouth daily ASPIRIN [id number] Charline Alvarez RN Start: 11-26-2013 take 1 tablet by crow th once daily ASPIRIN EC 81 MG TBEC One tablet by mouth daily ASPIRIN [id number] Rupa Mckeon RN atorvastatin 40 mg oral tablet (20 sources) HMG-CoA Reductase Inhibitor Start: 01-25-2024 take 1 tablet by mouth at bedtime Atorvastatin 40 mg tablet Active 40 mg PO AT BEDTIME 90 3 January 25, 2024 1:11pm Start: 02-11-2019 End: 01-25-2024 take 1 tablet by mouth at bedtime Atorvastatin 20 mg tablet Discontinued 20 mg PO AT BEDTIME 90 3 October 16, 2022 2:29pm January 25, 2024 [...] 0 Refill(s), 01/21/23 9:13:00 AM EST, Pharmacy: [facility] #[id number], 152.4, cm, 01/14/23 1:55:00 EST, Height, 105.9, kg, 01/14/23 1:55:00 EST, Dosing Weight Start Date: 01/17/23 Stop Date: 01/21/23 Status: Ordered cholecalciferol 0.05 mg oral capsule (3 sources) Vitamin D Start: 08-07-2024 take 1 capsule by mouth once daily Cholecalciferol (Vitamin D3) 50 mcg (2,000 unit) capsule Active 50 ug PO daily August 07, 2024 12:00am citalopram 20 mg oral tablet (20 sources) Serotonin Reuptake Inhibitor Start: 05-07-2014 take 1 tablet by mouth at bedtime Citalopram 20 MG tablet Active 20 mg PO AT BEDTIME July 11, 2016 12:00am ANTIDEPRESSANT cyclobenzaprine hydrochloride 10 mg oral tablet (10 sources) Muscle Relaxant Start: 02-08-2019 take 1 tablet by mouth at bedtime Cyclobenzaprine 10 MG tablet Active 10 mg PO AT BEDTIME February 08, 2019 1:00am DME MISCellaneous (11 sources) Start: 01-17-2023 DME MISCellaneous See Instructions, Blood Pressure Cuff/ 1KIT, # 1 EA, 0 Refill(s), Hypertension, 105.9 Start Date: 01/17/23 Status: Ordered docusate sodium 100 mg oral capsule (14 sources) Start: 01-17-2023 Colace 100 mg oral capsule Dose : 100 mg = 1 cap(s), Oral, BID, PRN Constipation, 0 Refill(s) Start Date: 01/17/23 Status: Ordered Start: 04-18-2017 End: 05-01-2017 take 1 capsule by mouth twice daily as needed for constipation Docusate Sodium 100 MG capsule Discontinued 100 mg PO TWICE DAILY NEEDED as needed for Constipation 10 0 April 18, 2017 1:00am May 01, 2017 9:38pm Start: 08-30-2016 take 1 tablet by crow th twice daily as needed COLACE 100 MG CAPS One tablet by mouth twice daily as needed DOCUSATE SODIUM [id number] Noelle Todd RN docusate sodium 50 mg / sennosides, shelter 8.6 mg oral tablet (11 sources) Start: [...] Ordered ferrous fumarate 325 mg oral tablet (3 sources) Start: 08-07-2024 take 1 tablet by mouth [...] 17, 2014 1:00am March 01, 2020 3:59pm BLOOD PRESSURE mupirocin 0.02 mg/mg topical ointment (2 sources) RNA Synthetase Inhibitor Antibacterial Start: 06-11-2023 mupirocin 2% topical ointment Apply 1 neptali, Topical, BID, Bilateral intranasal application twice daily x 5 days pre-surgery., Apply to: nostril, each, # 22 gram(s), 0 Refill(s), Pharmacy: [id number], Ointment, 150, cm, 06/11/23 11:49:00 EDT, Height, 98, kg, 06/11/23 11:49:00 EDT, Dosing Weight Start Date: 06/11/23 Status: Ordered omeprazole 20 mg delayed release oral capsule (20 sources) Proton Pump Inhibitor Start: 06-11-2017 take 1 capsule by mouth once daily Omeprazole 20 MG capsule,delayed release(DR/EC) Active 20 mg PO DAILY June 11, 2017 12:00am REFLUX Start: 01-07-2014 take 1 tablet by crow th once daily PRILOSEC 20 MG CPDR One tablet by mouth daily OMEPRAZOLE [id number] Seun Blair MD polyethylene glycol 3350 13847 mg powder for oral solution (14 sources) Osmotic Laxative Start: 06-11-2023 take 17 [...] GM packet Discontinued 17 g PO DAILY 30 0 May 01, 2017 1:00am June 11, 2017 10:07am Semaglutide (Weight Loss) (6 sources) Start: 03-07-2024 Semaglutide (W eight Loss) 0.5 mg/0.5 mL pen injector Active 0.5 mg SC EVERY WEEK 2 0 March 07, 2024 1:57pm administer weeks 1 through 4 of therapy Start: 03-07-2024 Semaglutide (W eight Loss) 0.5 mg/0.5 mL pen injector Active 0.5 mg SC EVERY WEEK 2 March 07, 2024 1:57pm administer weeks 1 through 4 of therapy Start: 03-07-2024 End: 03-07-2024 Semaglutide (Weight Loss) 0. 5 mg/0.5 mL pen injector Discontinued 0.25 mg SC EVERY WEEK 2 0 March 07, 2024 1:57pm March 07, 2024 [...] 17, 2014 1:00am March 01, 2020 3:58pm THYROID tiZANidine 4 mg oral tablet (9 sources) Central alpha-2 Adrenergic Agonist Start: 04-10-2024 tiZANidine 4 mg oral tablet Dose : 4 mg = 1 tab(s), Oral, TID, PRN Muscle spasm, # 30 tab(s), 0 Refill(s), Pharmacy: [id number], 149.9, cm, 06/19/23 12:54:00 EDT, [...] / oxyCODONE hydrochloride 5 mg oral tablet (20 sources) Opioid Agonist Start: 05-24-2017 End: 05-25-2017 Oxycodone-Acetaminoph en 1 TABLET tablet Discontinued 0 PO EVERY 6 HOURS as needed for Pain 60 0 May 24, 2017 May 25, 2017 1:44pm Osteoarthritis of knee Unilateral primary osteoarthritis, unspecified knee 1-2 po q6h prn pain PO Q6H [...] 4 HOURS NEEDED as needed for Pain 30 0 May 01, 2017 9:38pm May 24, 2017 4:10pm Osteoarthritis of knee Unilateral primary osteoarthritis, unspecified knee Start: 04-18-2017 End: 05-24-2017 take 1 tablet by mouth every four hours as needed Oxycodone-Acetaminophen Discontinued 1 - 2 TABLET PO EVERY 4 HOURS NEEDED May 01, 2017 9:38pm May 24, 2017 4:10pm acyclovir 400 mg oral tablet (8 sources) Herpesvirus Nucleoside Analog DNA Polymerase Inhibitor, Herpes Simplex Virus Nucleoside Analog DNA Polymerase Inhibitor, Herpes Zoster Virus Nucleoside Analog DNA Polymerase Inhibitor Start: 05-21-2019 End: 08-29-2019 take 1 tablet by mouth five times daily Acyclovir 400 MG tablet Discontinued 1 {tbl} PO 5 TIMES DAILY 50 0 May 21, 2019 12:00am August 29, 2019 1:16pm albuterol 0.83 mg/ml inhalant solution (1 source) beta2-Adrenergic Agonist Start: 11-12-2014 ALBUTEROL SULFATE NEBU 90 Mcg/inh as needed ALBUTEROL SULFATE NEBU [place] Domitila Blair MD amLODIPine 5 mg oral tablet (5 sources) Dihydropyridine Calcium Channel Allan Start: 01-17-2023 End: 02-16-2023 amLODIPine 5 mg oral tablet Dose : 5 mg = 1 tab(s), Oral, qDay, # 30 tab(s), 0 Refill(s), Pharmacy: [facility] #[id number], 152.4, cm, 01/14/23 1:55:00 EST, Height, kg, 01/14/23 1:55:00 EST, Dosing Weight Start Date: 01/17/23 Stop Date: 02/16/23 Status: Ordered cephalexin 500 mg oral capsule (8 sources) Cephalosporin Antibacterial Start: 02-23-2020 End: 03-01-2020 take 1 capsule by mouth every twelve hours Cephalexin 500 MG capsule Discontinued 500 mg PO EVERY 12 HOURS 14 February 23, 2020 1:00am March 01, 2020 3:58pm clopidogrel 75 mg oral tablet (20 sources) P2Y12 Platelet Inhibitor Start: 05-01-2017 End: 04-04-2022 take 1 tablet by mouth once daily Clopidogrel 75 mg tablet Discontinued 0 .ROUTE .COMPLEX 90 3 August 30, 2020 9:20am April 04, 2022 10:32am TAKE 1 TABLET BY MOUTH DAILY Start: 11-26-2013 End: 04-18-2017 take 1 tablet by mouth once daily Clopidogrel 75 MG tablet Discontinued 75 mg PO DAILY April 17, 2014 1:00am April 18, 2017 5:32pm BLOOD THINNER doxycycline monohydrate 100 mg oral capsule (8 sources) Tetracycline-class Drug Start: 12-25-2019 End: 03-11-2020 take 1 capsule by mouth twice daily Doxycycline Monohydrate 100 MG capsule Discontinued 100 mg PO TWICE A DAY December 25, 2019 12:00am March 11, 2020 10:57am empagliflozin 25 mg oral tablet (6 sources) Sodium-Glucose Cotransporter 2 Inhibitor Start: 10-11-2023 End: 01-10-2024 take 1 tablet by mouth once daily Empagliflozin 25 mg tablet Discontinued 25 mg PO DAILY 09 07November 05, 2023 12:00pm January 10, 2024 4:38pm Diabetes mellitus Chronic diastolic heart failure Type 2 diabetes mellitus with hyperglycemia 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 card 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 insulin Chronic diastolic (congestive) heart failure CONJ ESTROG-MEDROXYPROG EST [place] (2 sources) Progestin, Estrogen Start: 11-29-2013 take 1 tablet by mouth once daily PREMPRO 0.3-1.5 MG TABS One tablet by mouth daily CONJ ESTROG-MEDROXYPRO GEST [place] [id number] Charline Alvarez RN Start: 11-29-2013 End: 08-30-2016 take 1 tablet by mouth once daily PREMPRO 0.3-1.5 MG TABS One tablet by mouth daily CONJ ESTROG-MEDROXYPROGEST [place] [id number] Noelle Todd RN famotidine 20 mg oral tablet (16 sources) Histamine-2 Receptor Antagonist Start: 04-18-2017 End: 05-01-2017 take 1 tablet by mouth twice daily Famotidine 20 MG tablet Discontinued 20 mg PO TWICE A DAY April 20, 2017 4:37pm May 01, 2017 9:38pm acid reflux ferrous sulfate 325 mg oral tablet (19 sources) Start: 02-08-2019 End: 08-01-2024 take 1 tablet by mouth once daily Ferrous Sulfate 325 MG tablet Discontinued 325 mg PO DAILY February 08, 2019 1:00am August 01, 2024 3:13pm FLUoxetine 10 mg oral capsule (1 source) Serotonin Reuptake Inhibitor Start: 05-07-2014 take 1 tablet by mouth once daily PROZAC 10 MG CAPS One tablet by mouth daily FLUOXETINE HCL [id number] Rupa Alexis PA-C 120 actuat formoterol fumarate 0.0048 mg/actuat / glycopyrrolate 0.009 mg/actuat metered dose inhaler (16 sources) beta2-Adrenergic Agonist Start: 03-30-2017 End: 04-10-2017 Glycopyrrolate-For moterol (Bevespi Aerosphere) 9-4.8 mcg HFA aerosol inhaler Discontinued 2 NMA INHALATION TWICE A DAY 10.7 6 March 30, 2017 4:17pm April 10, 2017 [...] 29, 2015 1:00am March 01, 2020 3:59pm PAIN Start: 11-12-2014 take 1 tablet by crow th once daily GABAPENTIN 300 MG CAPS One tablet by mouth daily every night GABAPENTIN [id number] Seun Blair MD Start: 11-12-2014 take 1 tablet by crow th once daily GABAPENTIN 600 MG TABS One tablet by mouth every night GABAPENTIN [id number] Noelle Todd RN 3 ml insulin glargine 100 unt/ml pen injector (20 sources) Insulin Analog Start: 06-28-2023 End: 10-11-2023 Insulin Glargine (Lantus Solostar U-100 Insulin) 100 unit/mL (3 mL) insulin pen Discontinued 10 U SC AT BEDTIME 15 2 September 27, 2023 2:18pm October 11, 2023 [...] insurance., # 15 mL, 0 Refill(s), Pharmacy: [facility] #[id number], Diabetes, 152.4, cm, 01/14/23 1:55:00 EST, Height, kg, 01/14/23 1:55:00 EST, Dosing Weight Start Date: 01/17/23 Stop Date: 02/16/23 Status: Ordered 3 ml insulin lispro 100 unt/ml pen injector (18 sources) Insulin Analog Start: 09-27-2023 End: 10-11-2023 Insulin Lispro (Humalog Kwikpen Insulin) 100 unit/mL insulin pen Discontinued 3 U SC THREE TIMES A DAY 15 2 September 27, 2023 2:19pm October 11, 2023 [...] A DAY June 28, 2023 12:00am Start: 11-08-2023 HumaLOG KwikPe n 100 units/mL injectable PEN 5- 15 units, Subcutaneous, TIDAC, 150-200 = 5units, 201-250 = 8units, 251-300= 12 units, 301 or greater will take 15unit, # 10 mL, 0 Refill(s), Pharmacy: [facility] #[id number], Diabetes, 152.4, cm, 01/14/23 1:55:00 EST, Height, kg, 01/14/23 1:55:00 EST, Dosing Weight Start Date: 01/17/23 Status: Ordered Start: 01-17-2023 HumaLOG KwikPe n 100 units/mL injectable PEN See Instructions, Subcutaneous TIDAC w/sliding scale BS 300 - 16 units, call PCP, # 15 mL, 0 Refill(s), [id number] Diabetes, 152.4, cm, 01/14/23 1:55:00 EST, Height, kg, 01/14/23 1:55:00 EST, Dosing Weight Start Date: 01/17/23 Status: Ordered lisinopril 5 mg oral tablet (2 sources) Angiotensin Converting Enzyme Inhibitor Start: 11-29-2013 take 1 tablet by mouth once daily LISINOPRIL 5 MG TABS One half tablet by mouth daily LISINOPRIL [id number] Rupa Alexis PA-C magnesium oxide 400 mg oral tablet (2 sources) Start: 02-20-2014 take 1 tablet by mouth once daily MAGNESIUM OXIDE 400 MG TABS One tablet by mouth daily MAGNESIUM OXIDE [id number] Noelle Todd RN Start: 02-20-2014 take 1 tablet by crow twice daily MAGNESIUM OXIDE 400 MG TABS One tablet by mouth twice daily MAGNESIUM OXIDE [id number] Charline Alvarez RN meloxicam 15 mg oral tablet (8 sources) Nonsteroidal Anti-inflammatory Drug Start: 02-08-2019 End: 02-11-2019 take 1 tablet by mouth once daily Meloxicam 15 MG tablet Discontinued 15 mg PO DAILY February 08, 2019 1:00am February 11, 2019 8:46am methylprednisoLONE 4 mg oral tablet (2 sources) Corticosteroid Start: 12-30-2015 End: 03-01-2016 METHYLPREDNISOLONE 4 MG TABS take as directed [facility] [id number] Rupa Alexis PA-C Miconazole (5 sources) Azole Antifungal Start: 01-17-2023 miconazole 2% topical powder Apply 1 neptali, Topical, BID, 0 Refill(s), Powder, 105.9 Start Date: 01/17/23 Status: Ordered Nirmatrelvir-Ritonavir (8 sources) Start: 12-25-2021 End: 04-04-2022 Nirmatrelvir-Ritonavi r (Paxlovid (Eua)) 300 mg (150 mg x 2)-100 mg tablets,dose pack Discontinued 0 PO .COMPLEX December 25, 2021 12:00am April 04, 2022 10:17am take TWO 150 mg tablets of nirmatrelvir with ONE 100 mg tablet of ritonavir twice daily for 5 days Start: 12-25-2021 End: 04-04-2022 Nirmatrelvir-Ritonavir (Paxl ovid (Eua)) 300 mg (150 mg x 2)-100 [...] days ondansetron 4 mg disintegrating oral tablet (8 sources) Serotonin-3 Receptor Antagonist Start: 12-25-2019 End: 03-01-2020 take 1 tablet by mouth every eight hours as needed for nausea Ondansetron 4 MG tablet Discontinued 4 mg PO EVERY 8 HOURS NEEDED as needed for Nausea December 25, 2019 12:00am March 01, 2020 3:59pm predniSONE 20 mg oral tablet (8 sources) Start: 05-21-2019 End: 08-29-2019 take 3 [...] food promethazine hydrochloride 25 mg oral tablet (9 sources) Phenothiazine Start: 06-12-2017 End: 06-26-2017 take [...] every 4 hurs as needed PROMETHAZINE HCL [id number] Noelle Todd RN raNITIdine 150 mg oral tablet (2 sources) Histamine-2 Receptor Antagonist Start: 11-29-2013 End: 01-07-2014 take 1 tablet by mouth at bedtime as needed RANITIDINE HCL 150 MG TABS One tablet by mouth at bedtime. 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 insulin Presence of coronary angioplasty implant and graft Atherosclerotic heart disease of [place] coronary artery without angina pectoris Chronic diastolic (congestive) heart failure Start: 01-10-2024 End: 01-25-2024 Semaglutide (Ozempic) 0.25 m g or 0.5 mg (2 mg/3 mL) pen injector Discontinued 0.5 mg SC EVERY WEEK 3 January 10, 2024 4:40pm January 25, 2024 10:41am Start: 10-11-2023 End: 01-10-2024 Semaglutide (Ozempic) 0.25 m g or 0.5 mg (2 mg/3 mL) pen injector Discontinued 0.5 mg SC EVERY WEEK 3 October 11, 2023 12:00am January 10, 2024 4:41pm Diabetes mellitus History of coronary artery stent placement Chronic diastolic heart failure Coronary artery disease Type 2 diabetes mellitus with hyperglycemia nursing home (current) use of insulin Presence of coronary angioplasty implant and graft Chronic diastolic (congestive) heart failure Atherosclerotic heart disease of [place] coronary artery without angina pectoris Start: 10-11-2023 End: 01-10-2024 Semaglutide (Ozempic) 0.25 m g or 0.5 mg (2 mg/3 mL) pen injector Discontinued 0.5 mg SC EVERY WEEK 3 October 11, 2023 12:00am January 10, 2024 4:41pm Semaglutide (Weight Loss) (3 sources) Start: 01-25-2024 End: 03-07-2024 Semaglutide (Weight Loss) (W egovy) 0.25 mg/0.5 mL pen injector Discontinued 0.25 mg SC EVERY WEEK 2 0 January 25, 2024 1:00am March 07, 2024 1:57pm administer weeks 1 through 4 of therapy Start: 01-25-2024 End: 03-07-2024 Semaglutide (Weight Loss) (W egovy) 0.25 mg/0.5 mL pen injector Discontinued 0.25 mg SC EVERY WEEK 2 January 25, 2024 1:00am March 07, 2024 1:57pm administer weeks 1 through 4 of therapy simvastatin 40 mg oral tablet (20 sources) HMG-CoA Reductase Inhibitor Start: 11-26-2013 End: 02-11-2019 take 1 tablet by mouth at bedtime Simvastatin 40 mg tablet Discontinued 40 mg PO AT BEDTIME 90 3 August 14, 2018 5:01pm February 11, 2019 8:46am CHOLESTEROL traMADol hydrochloride 50 mg oral tablet (6 sources) Opioid Agonist Start: 03-10-2022 End: 04-04-2022 take 1 tablet by mouth twice daily as needed for pain Tramadol 50 mg tablet Discontinued 50 mg PO TWICE A DAY as needed for pain 14 0 March 10, 2022 1:00am April 04, 2022 10:17am Fracture of distal end of right radius Problems Active Problems Problem Classification Problem Date Documented Date Episodic/Chronic Acute myocardial infarction (11 sources) Acute subendocardial infarction; Translations: [Non-ST elevation (NSTEMI) myocardial infarction] Onset: 11-26-2013 Resolved: 11-12-2014 11-12-2014 Chronic Comment on above: 11/24/2013, 9 Acute posthemorrhagic anemia (1 source) Acute posthemorrhagic anemia; Translations: [Acute posthemorrhagic anemia] Episodic Cardiac dysrhythmias (11 sources) Supraventricular tachycardia; Translations: [Supraventricular tachycardia] 06-12-2017 Chronic Cardiac dysrhythmias (8 sources) Tachycardia; Translations: [Tachycardia, unspecified] 03-11-2020 Episodic Chronic obstructive pulmonary disease and bronchiectasis (2 sources) Chronic obstructive lung disease; Translations: [Chronic obstructive pulmonary disease, unspecified] Chronic Congestive heart failure; nonhypertensive (20 sources) Chronic diastolic heart failure; Translations: [Chronic diastolic (congestive) heart failure] Onset: 08-07-2024 Chronic Coronary atherosclerosis and other heart disease (20 sources) Atherosclerotic heart disease of [place] coronary artery without angina pectoris; Translations: [Coronary atherosclerosis] Onset: 11-29-2013 03-01-2016 Chronic Comment on above: Stenting to LCx in 2 014; KP to LCx in February 2019; Deficiency and other anemia (10 sources) Anemia 01-29-2023 Episodic Diabetes mellitus with complications (2 sources) Hyperglycemia due to type 2 diabetes mellitus; Translations: [Type 2 diabetes mellitus with hyperglycemia] Onset: 08-07-2024 Chronic Diabetes mellitus without complication (8 sources) Diabetes mellitus; Translations: [Type 2 diabetes mellitus without complications] Onset: 01-17-2023 06-28-2023 Chronic Disorders of lipid metabolism (16 sources) Hyperlipidemia; Translations: [Hyperlipidemia, unspecified] Onset: 11-26-2013 11-26-2013 Chronic Esophageal disorders (10 sources) Gastroesophageal reflux disease 01-29-2023 Chronic Essential hypertension (15 sources) Hypertensive disorder; Translations: [Essential hypertension] Onset: 11-26-2013 11-26-2013 Chronic Fracture of upper limb (8 sources) Fracture of distal end of radius; [...] source) Vomiting Onset: 03-06-2018 Episodic Nutritional deficiencies (8 sources) Vitamin D deficiency; Translations: [Vitamin D deficiency, unspecified] Onset: 08-07-2024 06-28-2023 Chronic Osteoarthritis (1 source) Localized, primary osteoarthritis; Translations: [Unilateral primary osteoarthritis, left knee] Onset: 12-30-2015 01-09-2016 Chronic Other connective tissue disease (1 source) H/O: arthrodesis; Translations: [Arthrodesis status] Onset: 01-17-2023 Episodic Other fractures (1 source) Closed fracture lumbar vertebra, wedge ; Translations: [Wedge compression fracture of second lumbar vertebra, initial encounter for closed fracture] Episodic Other fractures (10 sources) Burst fracture of lumbar vertebra 01-19-2023 Episodic Comment on above: L2 Other lower respiratory disease (8 sources) Dyspnea on exertion; Translations: [Other forms of dyspnea] 03-11-2020 Episodic Other nutritional; endocrine; and metabolic disorders (4 sources) Obesity; Translations: [Obesity, unspecified] 06-28-2023 Chronic Other nutritional; endocrine; and metabolic disorders (1 source) Obesity, unspecified; Translations: [Obesity, unspecified] 06-28-2023 Chronic Other nutritional; endocrine; and metabolic disorders (4 sources) Body mass index 30+ - obesity; Translations: [Obesity, unspecified] 08-07-2024 Chronic Other screening for suspected conditions (not mental disorders or infectious disease) (1 source) Encounter for screening for osteoporosis; Translations: [Encounter for screening for osteoporosis] Onset: 09-08-2024 Episodic Peripheral and visceral atherosclerosis (1 source) Peripheral vascular disease; Translations: [Peripheral vascular disease, unspecified] Onset: 01-07-2014 01-07-2014 Chronic Pulmonary heart disease (8 sources) Pulmonary hypertension; Translations: [Pulmonary hypertension, unspecified] [...] syndrome] Onset: 11-26-2013 11-12-2014 Chronic Thyroid disorders (20 sources) Hypothyroidism; Translations: [Hypothyroidism, unspecified] Onset: 11-29-2013 [...] Unclassified (10 sources) Atherosclerosis 01-29-2023 Viral infection (16 sources) COVID-19; Translations: [Severe acute respiratory syndrome coronavirus 2 (SARS-CoV-2) detected] Onset: 12-25-2019 02-25-2020 Episodic Past or Other Problems Problem Classification Problem Date Documented Da te Episodic/Chronic Complication of device; implant or graft (3 sources) Complication of internal prosthetic device; Translations: [Displacement of other specified internal prosthetic devices, implants and grafts, initial encounter] Onset: 06-19-2023 Episodic Coronary atherosclerosis and other heart disease (2 sources) Presence of coronary angioplasty implant and graft; Translations: [Presence of coronary angioplasty implant and graft] Onset: 11-12-2014 11-12-2014 Episodic Deficiency and other anemia (1 source) [...] 04-30-2015 Episodic Other aftercare (3 sources) Other mcc (current) drug therapy; Translations: [Other long term care phlebotomist (current) drug therapy] Onset: 01-17-2023 Episodic Other aftercare (1 source) 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 card 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 insulin; Translations: [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 card 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 insulin] Onset: 08-07-2024 Episodic Other fractures (2 sources) Stable burst [...] Test Name Value Interpretation Reference Range Facility Bone density reportOrdered B y: Dom Makayla on 09-04-2024 Study report Skeletal system DXA [facility] Imaging Services [address] [place] [address] [id number] Dexa Bone Density/Append Skel MR#: [id number] Acct: [id number] Name: JAMIE WALSH Rep #: [id number] : 1960 F 64 From: Mick Benavides MD PCP: Dr. Dawn Rivera MD Status: REG CLI Study:Dexa Bone Density/Append Skel Date of E xam: 09/04/24 Exam# [id number] Ordering Dr: Clement Rivera MD PROCEDURE: DEXA BONE DENSITY/APPEND SKEL 09/04/2024 REASON FOR EXAM: F, age 64 y/o . Postmenopausal. TECHNIQUE: DEXA BONE DENSITY/APPEND SKEL COMPARISON: None FINDINGS: BMD and T-SCORES Left femoral neck: 0.617 g/cm2, T-score -2.1 Femoral neck comparison data not recommended for monitoring change. Left total hip: 0.761 g/cm2, T-score -1.5 Right femoral neck: 0.685 g/cm2, T-score -1.5 Femoral neck comparison data not recommended for monitoring change. Right total hip: 0.756 g/cm2, T-score -1.5 Left 1/3 radius: 0.500 g/cm2, T-score -1.5 The World Health Organization has defined the following categories based on bonedensity: Normal bone density: T-score equal to or greater than -1.0 Osteopenia: T-score between -1.0 and -2.5 Osteoporosis: T-score equal to or less than -2.5 The patient does meet the pharmacological treatment recommendations for prevention of osteoporosis. BD/Dexa Bone Density/Append Skel IMPRESSION: OSTEOPENIA. Recommend follow-up as clinically warranted. Reading Location: [id number] CC: Dr. Dawn Rivera MD ~ Route Driver Salesperson: Signed [facility] Dexa Bone Density/Append Ske anaid 09-04-2024 Dexa Bone Density/Append Skel [facility] Imaging Services [address] [place] [address] [id number] Dexa Bone Density/Append Skel MR#: [id number] Acct: [id number] Name: JAMIE WALSH Rep #: [id number] : 1960 F 64 From: Dom hoffman MD PCP: Dr. Dawn Rivera MD Status: REG CLI Study: Dexa Bone Density/Append Skel Date of Exam: Exam# [id number] Ordering Dr: Dawn Rivera MD PROCEDURE: DEXA BONE DENSITY/APPEND SKEL 09/04/2024 REASON FOR EXAM: F, age 64 y/o . Postmenopausal. TECHNIQUE: DEXA BONE DENSITY/APPEND SKEL COMPARISON: None FINDINGS: BMD and T-SCORES Left femoral neck: 0.617 g/cm2, T-score -2.1 Femoral neck comparison data not recommended for monitoring change. Left total hip: 0.761 g/cm2, T-score -1.5 Right femoral neck: 0.685 g/cm2, T-score -1.5 Femoral neck comparison data not recommended for monitoring change. Right total hip: 0.756 g/cm2, T-score -1.5 Left 1/3 radius: 0.500 g/cm2, T-score -1.5 The World Health Organization has defined the following categories based on bone density: Normal bone density: T-score equal to or greater than -1.0 Osteopenia: T-score between -1.0 and -2.5 Osteoporosis: T-score equal to or less than -2.5 The patient does meet the pharmacological treatment recommendations for prevention of osteoporosis. BD/Dexa Bone Density/Append Skel IMPRESSION: OSTEOPENIA. Recommend follow-up as clinically warranted. Reading Location: [id number] CC: Dr. Dawn Rivera MD Route Driver Salesperson: Signed Normal [facility] Cardiovascular stress test r eportOrdered By: Seun Blair on 09-03-2024 Study report [facility] Cardiovascular Services [address] [place] [address] MR#: [id number] Acct: [id number] Name: JAMIE WALSH Rep #: [id number] : 1960 64 From: Seun Blair MD Primary Care: Dr. Dawn Rivera MD Statu s: REG CLI Referring Dr: Clotilde Rendon NP Sex: F C Stress Test Report Pharmacologic myocardial perfusion stress test. [64-year-old lady with a history of chest pain .] Resting EKG demonstrates sinus rhythm with a rate of 80 bpm. Resting blood pressure is 138/74 mmHg. 0.4 mg of regadenoson was infused per usual protocol followed by rapid intravenous saline flush injection. Continuous EKG monitoringwas performed. The maximum heart rate was 91 bpm which was 59% of max impacted heart rate the maximum workload was 1 metabolic equivalent. At rest there were no ST or T wave changes noted to suggest ischemia and at peak infusion nonspecific ST changes were noted which did not meet the criteria for ischemia. No clinical angina is noted. The final blood pressure was 120/70 mmHg. Myocardial perfusion protocol. 11 point mCi of technetium 99m sestamibi was injected at rest. 0.4 mg of regadenoson was infused per usual protocol. At peak infusion 33 point mCi of technetium 99m sestamibi was injected stress images were obtained stress and rest images were reconstructed and compared in the short axis vertical long and horizontal long axis. Gated images were also obtained. Perfusion SPECT analysis: Review of the stress images demonstrate normal uptake of tracer noted in all areas of the myocardium. The resting images similar demonstrated normal uptake of tracer noted in all areas of the myocardium. No areas of reversibility are noted to suggest ischemia and no previous infarct is noted. Gated SPECT analysis: The gated ejection fraction is 72%. Conclusion: Normal pharmacologic myocardial perfusion stress test. Preserved ejection fraction. 09/03/24735 Date _ Seun Blair MD CC: DANISHA Rendon; Dr. Dawn Rivera MD ~ Date Dictated: 09/03/24734 Date Transcribed: 09/03/24734 Route Driver Salesperson: [place] Signed [facility] Work Phone: Stress Reporton 09-03-2024 Stress Report [facility] Cardiovascular Services [address] [place] [address] MR#: [id number] Acct: [id number] Name: JAMIE WALSH Rep #: [id number] : 1960 64 From: Seun Blair MD Primary Care: Dr. Dawn Rivera MD Status: REG CLI Referring Dr: Clotilde Rendon NP, NP-C Sex: F C Stress Test Report Pharmacologic myocardial perfusion stress test. [64-year-old lady with a history of chest pain .] Resting EKG demonstrates sinus rhythm with a rate of 80 bpm. Resting blood pressure is 138/74 mmHg. 0.4 mg of regadenoson was infused per usual protocol followed by rapid intravenous saline flush injection. Continuous EKG monitoring was performed. The maximum heart rate was 91 bpm which was 59% of max impacted heart rate the maximum workload was 1 metabolic equivalent. At rest there were no ST or T wave changes noted to suggest ischemia and at peak infusion nonspecific ST changes were noted which did not meet the criteria for ischemia. No clinical angina is noted. The final blood pressure was 120/70 mmHg. Myocardial perfusion protocol. 11 point mCi of technetium 99m sestamibi was injected at rest. 0.4 mg of regadenoson was infused per usual protocol. At peak infusion 33 point mCi of technetium 99m sestamibi was injected stress images were obtained stress and rest images were reconstructed and compared in the short axis vertical long and horizontal long axis. Gated images were also obtained. Perfusion SPECT analysis: Review of the stress images demonstrate normal uptake of tracer noted in all areas of the myocardium. The resting images similar demonstrated normal uptake of tracer noted in all areas of the myocardium. No areas of reversibility are noted to suggest ischemia and no previous infarct is noted. Gated SPECT analysis: The gated ejection fraction is 72%. Conclusion: Normal pharmacologic myocardial perfusion stress test. Preserved ejection fraction. 09/03/2436 Date Seun Blair MD CC: DANISHA Rendon; Dr. Dawn Rivera MD Date Dictated: 09/03/24734 Date Transcribed: 09/03/24734 Route Driver Salesperson: [place] Signed Normal [facility] Endocrinology Visit Reporton 08-07-2024 Endocrinology Visit Report [facility] [address] [place] [address] OFFICE VISIT Date of Service: 08/07/24 MR#: [id number] Acct: [id number] Name: JAMIE WALSH Rep #: [id number] : 1960 Provider: DANISHA barker Age/Sex: 63/F [place] [facility] [place]: Signed Intake Vital Signs 01/17/24 13:26 [...] in remission Atherosclerosis of coronary artery of [place] heart without angina pectoris Pulmonary hypertension Stage [...] since that time. She is enrolled in PRECIDENTD clinic trial, she was randomized to a [...] Neck: norm (more content not included)... Normal [facility] - Hematology and Cell countsOrdered By: Dinorah Swift on 08-07-2024 HbA1c (Bld) [Mass fraction] 6.5 % High 4.2-6.3 [facility] Cardiology Visit Reporton Cardiology Visit Report [facility] [address] [place] [address]. [address] [place], [place] [address] OFFICE VISIT Date of Service: 08/01/24 MR#: [id number] Acct: [id number] Name: JAMIE WALSH Rep #: [id number] : 1960 Provider: DANISHA cm Age/Sex: 63/F Location: [facility] Status: Signed HPI HPI History of Present [...] 96 Intake Visit Reasons: 6 M FU User Interface Designer Required: No Is patient in pain?: No [...] the past year?: No PFSH Medical History (Reviewed 08/01/24 @ 15:39 by Clotilde Rendon TAPE SEWING MACHINE OPERATOR, TAPE SEWING MACHINE OPERATOR-C) Diabetes Fracture of right distal radius COVID-19 virus detected (12/25/19) Chronic diastolic heart failure Obstructive sleep apnea Obesity Depression GERD (gastroesophageal reflux disease) Hypothyroidism Osteoarthritis Essential (primary) hypertension Nicotine dependence in remission Atherosclerosis of coronary artery of [place] heart without angina pectoris Pulmonary hypertension Stage 2 moderate COPD by GOLD classification Hyperlipidemia Other peripheral vascular disease Non-ST elevated myocardial infarction (non-STEMI) (02/08/19) Supraventricular tachycardia Surgical History (Reviewed 08/01/24 @ 15:39 by Clotilde Rendon TAPE SEWING MACHINE OPERATOR, TAPE SEWING MACHINE OPERATOR-C) History of tubal ligation History of left [...] normal b (more content not included)... Normal [facility] Cardiology Visit Reporton Cardiology Visit Report [facility] [address] [place], [place] [address]sen[address]. [address] [place] [address] OFFICE VISIT Date of Service: 01/25/24 MR#: [id number] Acct: [id number] Name: JAMIE WALSH Rep #: [id number] : 1960 Provider: Dr. Seun Blair MD Age/Sex: 63/F Location: [facility] Status: Signed HPI HPI History of Present [...] Intake Visit Reasons: PER JHR (PRECEDENTD TRIAL) User Interface Designer Required: No Accompanied by: Self Is patient [...] in remission Atherosclerosis of coronary artery of [place] heart without angina pectoris Pulmonary hypertension Stage [...] Neuro: Nega (more content not included)... Normal [facility] Endocrinology Visit Reporton 01-17-2024 Endocrinology Visit Report [facility] [address] [place] [address] OFFICE VISIT Date of Service: 01/17/24 MR#: [id number] Acct: [id number] Name: JAMIE WALSH Rep #: [id number] : 1960 Provider: DANISHA barker Age/Sex: 63/F [place] [facility] [place] Status: Signed Intake Vital Signs 10/11/23 10:34 [...] 01/10/24 @ 12:11 by Gareth Sevilla NP, TAPE SEWING MACHINE OPERATOR-C) Diabetes Fracture of right distal radius COVID-19 virus detected (12/25/19) Chronic diastolic heart failure Obstructive sleep apnea Obesity Depression GERD (gastroesophageal reflux disease) Hypothyroidism Osteoarthritis Essential (primary) hypertension Nicotine dependence in remission Atherosclerosis of coronary artery of [place] heart without angina pectoris Pulmonary hypertension Stage [...] 13 lbs since that time. Reports she "feels great." Currently taking Jardiance 25 mg once daily [...] the chest (more content not included)... Normal [facility] URINE MICROALBUMIN W/CREATIN INE, RANDOMon 10-30-2023 CREATININE UR 24.01 mg/dl Normal [facility] Comment on above: Performed By: #### 2 [id number] #### [facility],[address] [place] [address] MICROALBUMIN UR 1.3 mg/dL Normal 0.1 - 11.6 [facility] Comment on above: Performed By: #### 2 [id number] #### [facility],[address] [place] [address] UACR 54 mg/g Normal [facility] Comment on above: Performed By: #### 2 86608 #### [facility],[address] [place] [address] XR SPINE LUMBAR AP/LAT/FLEX/ EXTon 09-14-2023 XR [...] 09/14/2023 11:19:46 AM Ordering Provider: SIMIN ALTMAN Normal [facility] ([place]) .GFRon 06-20-2023 GFR >60 Normal [facility] ([place]) Comment on above: Result Comment: GFR Population [...] meters Performed By: #### U A #### [address] [address] GFR Non- >60 Normal [facility] ([place]) Comment on above: Result Comment: GFR Population [...] meters Performed By: #### U A #### [address] [address] BUNon 06-20-2023 Urea nitrogen [Mass/Vol] 11.0 mg/dL Normal 8.0-22.0 [facility] ([place]) Comment on above: Performed By: #### U A #### [address] [address] CREon 06-20-2023 Creatinine [Mass/Vol] 0.58 mg/dL Normal 0.50-1.20 [facility] ([place]) Comment on above: Performed By: #### U A #### [address] [address] LABORATORYOrdered By: Dimas Bartlett on 06-20-2023 Blood Glucose Testing Reason Routine (06/20/23 11:47 AM) [facility] Glucose [Mass/Vol] 207 mg/dL High 82 - 115 mg/dL [facility] LABORATORYOrdered By: Paul Dover on 06-20-2023 Blood Glucose Testing Reason Routine (4/10/24 8:30 AM) [facility] Glucose [Mass/Vol] 136 mg/dL High 82 - 115 mg/dL [facility] LABORATORYOrdered By: SYSTEM SYSTEM on 06-20-2023 Creatinine [Mass/Vol] 0.58 mg/dL Normal 0.50 - 1.20 mg/dL [facility] GFR/1.73 sq M.predicted among blacks MDRD [...] (S/P/Bld) [Vol rate/Area] ml/min/1.73sqm Invalid Interpretation Code [employer] S Comment on above: Interpretive Data: GFR [...] mg/dL Normal 8.0 - 22.0 mg/dL ADM SS LABORATORYOrdered By: Chase reece on 06-19-2023 Blood Glucose Testing Reason Routine (06/19/23 9:36 PM) [facility] Glucose [Mass/Vol] 246 mg/dL High 82 - 115 mg/dL [facility] XR FLUORO > 2 HRS [...] AM Ordering Provider: NESTOR Dash [facility] ([place]) XR CHEST 2 VIEWSon XR CHEST 2 [...] AM Ordering Provider: NESTOR Dash [facility] ([place]) .Auto Diffon 06-11-2023 Basophil, Absolute 0.1 10 3/mcL Normal 0.0-0.3 [facility] ([place]) Comment on above: Performed By: #### SUSAN SAMUEL ANEU #### [address] [address] Basophils/100 WBC (Bld) 1.1 % Normal 0.0-2.5 [facility] ([place]) Comment on above: Performed By: #### SUSAN SAMUEL ANEU #### [address] [address] Eosinophil, Absolute 0.1 10 3/mcL Normal 0.0-0.7 [facility] ([place]) Comment on above: Performed By: #### SUSAN SAMUEL ANEU #### [address] [address] Eosinophils/100 WBC (Bld) 1.2 % Normal 0.0-6.0 [facility] ([place]) Comment on above: Performed By: #### SUSAN SAMUEL ANEU #### [address] [address] Lymphocyte, Absolute 2.2 10 3/mcL Normal 0.9-4.3 [facility] ([place]) Comment on above: Performed By: #### SUSAN SAMUEL ANEU #### [address] [address] Lymphocytes/100 WBC (Bld) 23.1 % Normal 20.0-40.0 [facility] ([place]) Comment on above: Performed By: #### SUSAN SAMUEL ANEU #### [address] [address] Monocyte, Absolute 0.6 10 3/mcL Normal 0.1-1.4 [facility] ([place]) Comment on above: Performed By: #### SUSAN SAMUEL ANEU #### [address] [address] Monocytes/100 WBC (Bld) 5.9 % Normal 2.0-13.0 [facility] ([place]) Comment on above: Performed By: #### C SUSAN WINTERS, ANEU #### [address] [address] Neutrophils/100 WBC (Bld) 68.7 % Normal 50.0-75.0 [facility] ([place]) Comment on above: Performed By: #### C SUSAN WINTERS, ANEU #### [address] [address] .GFRon 06-11-2023 GFR >60 Normal [facility] ([place]) Comment on above: Result Comment: GFR Population [...] 15 mL/min/1.73 square meters Performed By: #### C SUSAN WINTERS, ANEU #### [address] [address] GFR Non- >60 Normal [facility] ([place]) Comment on above: Result Comment: GFR Population [...] Performed By: #### SUSAN SAMUEL ANEU #### [place] [address] .NEUABSon 06-11-2023 Neutrophil, Absolute 6.6 10 3/mcL Normal 2.3-8.1 [facility] ([place]) Comment on above: Performed By: #### SUSAN SAMUEL ANEU #### [place] [address] APTTon 06-11-2023 aPTT Coag (Bld) [Time] 35.5 s High 25.0-35.0 [facility] ([place]) Comment on above: Result Comment: For Heparin anticoagulation therapy, the recommended therapeutic range is: 54-77 seconds (APTT Correlation with Anti-Xa therapeutic range of 0.3-0.7 units/ml). PLEASE REFERENCE THE PHARMACY PROTOCOL FOR DOSING. Performed By: #### SUSAN SAMUEL ANEU #### [place] [address] Heparin dose (APTT) None Normal [facility] ([place]) Comment on above: Performed By: #### SUSAN SAMUEL ANEU #### [place] [address] CBCon 06-11-2023 Erythrocyte distribution width (RBC) [Ratio] 14.2 % Normal 11.5-15.5 [facility] ([place]) Comment on above: Performed By: #### SUSAN SAMUEL ANEU #### [place] [address] Hematocrit (Bld) [Volume fraction] 35.7 % Normal 34.0-46.0 [facility] ([place]) Comment on above: Performed By: #### SUSAN SAMUEL ANEU #### [place] [address] Hgb 12.0 G/dL Normal 12.0-16.0 [facility] ([place]) Comment on above: Performed By: #### SUSAN SAMUEL ANEU #### [facility] [address] [place], [place] [address] MCH (RBC) [Entitic mass] 30.1 pg Normal 27.0-33.0 [facility] ([place]) Comment on above: Performed By: #### SUSAN SAMUEL ANEU #### [address] [address] MCHC 33.7 G/dL Normal 32.0-36.0 [facility] ([place]) Comment on above: Performed By: #### SUSAN SAMUEL ANEU #### [place] [id number] MCV (RBC) [Entitic vol] 89.3 fL Normal 80.0-99.0 [facility] ([place]) Comment on above: Performed By: #### SUSAN SAMUEL ANEU #### [place] [address] Platelet 306 10 3/mcL Normal 150-450 [facility] ([place]) Comment on above: Performed By: #### SUSAN SAMUEL ANEU #### [place] [address] Platelet mean volume (Bld) [Entitic vol] 8.4 fL Normal 6.6-10.5 [facility] ([place]) Comment on above: Performed By: #### SUSAN SAMUEL ANEU #### [place] [id number] RBC 4.00 10 6/mcL Low 4.10-5.30 [facility] ([place]) Comment on above: Performed By: #### SUSAN SAMUEL ANEU #### [place] [id number] WBC 9.7 10 3/mcL Normal 4.5-10.8 [facility] ([place]) Comment on above: Performed By: #### SUSAN SAMUEL ANEU #### [address] [address] CMPon 06-11-2023 Albumin Level 3.5 G/dL Normal 3.2-4.8 [facility] ([place]) Comment on above: Performed By: #### SUSAN SAMUEL ANEU #### [address] [address] Albumin/Globulin [Mass ratio] 1.1 {ratio} Normal 0.9-1.6 [facility] ([place]) Comment on above: Performed By: #### SUSAN SAMUEL, ANEU #### [address] [address] Globulin 3.2 G/dL Normal 1.5-3.8 [facility] ([place]) Comment on above: Performed By: #### C SUSAN WINTERS, ANEU #### [address] [address] ALP [Catalytic activity/Vol] 131 U/L High 38-126 [facility] ([place]) Comment on above: Performed By: #### C SUSAN WINTERS, ANEU #### [address] [address] ALT [Catalytic activity/Vol] 18 U/L Normal 10-49 [facility] ([place]) Comment on above: Performed By: #### SUSAN SAMUEL, ANEU #### [address] [address] AST [Catalytic activity/Vol] 25 U/L Normal 8-34 [facility] ([place]) Comment on above: Performed By: #### C SUSAN WINTERS, ANEU #### [address] [address] Bili Total 0.50 mg/dL Normal 0.20-1.20 [facility] ([place]) Comment on above: Result Comment: Use of this assay is not recommended for patients undergoing treatment with eltrombopag due to the potential for falsely elevated results. Performed By: #### C SUSAN WINTERS, ANEU #### [address] [address] BUN/Creatinine Ratio 17.9 ratio Normal 10.0-22.0 [facility] ([place]) Comment on above: Performed By: #### C SUSAN WINTERS, ANEU #### [address] [address] Calcium [Mass/Vol] 9.2 mg/dL Normal 8.7-10.4 [facility] ([place]) Comment on above: Performed By: #### USSAN SAMUEL, ANEU #### [address] [address] Chloride [Moles/Vol] 107 mmol/L Normal 98-110 [facility] ([place]) Comment on above: Performed By: #### C SUSAN WINTERS, ANEU #### [address] [address] CO2 [Moles/Vol] 27 mmol/L Normal 22-32 [facility] ([place]) Comment on above: Performed By: #### C SUSAN WINTERS, ANEU #### [address] [address] Creatinine [Mass/Vol] 0.67 mg/dL Normal 0.50-1.20 [facility] ([place]) Comment on above: Performed By: #### SUSAN SAMUEL, ANEU #### [address] [address] Electrolyte Balance 4.0 mEq/L Normal 4.0-15.0 [facility] ([place]) Comment on above: Performed By: #### C SUSAN WINTERS, ANEU #### [address] [address] Glucose [Mass/Vol] 205 mg/dL High 82-115 [facility] ([place]) Comment on above: Performed By: #### SUSAN SAMUEL, ANEU #### [address] [address] Potassium [Moles/Vol] 3.6 mmol/L Normal 3.5-5.0 [facility] ([place]) Comment on above: Performed By: #### C SUSAN WINTERS, ANEU #### [address] [address] Sodium [Moles/Vol] 138 mmol/L Normal 136-145 [facility] ([place]) Comment on above: Performed By: #### C SUSAN WINTERS, ANEU #### [address] [address] Total Protein 6.7 G/dL Normal 5.7-8.2 [facility] ([place]) Comment on above: Result Comment: No te - New Reference Range in effect 19 Performed By: #### C SUSAN WINTERS ANEU #### [address] [address] Urea nitrogen [Mass/Vol] 12.0 mg/dL Normal 8.0-22.0 [facility] ([place]) Comment on above: Performed By: #### C SUSAN WINTERS ANEU #### [address] [address] LABORATORYOrdered By: SYSTEM SYSTEM on 06-11-2023 Albumin BCP dye [Mass/Vol] 3.5 G/dL Normal 3.2 - 4.8 G/dL ADM SS Albumin/Globulin [Mass ratio] 1.1 {ratio} Normal 0.9 - 1.6 ratio AH ADM SS ALP [Catalytic activity/Vol] 131 U/L High 38 - 126 U/L ADM SS ALT No additional P-5'-P [Catalytic activity/Vol] 18 U/L Normal 10 - 49 U/L ADM SS AST [Catalytic activity/Vol] 25 U/L Normal 8 - 34 U/L AH ADM SS Basophils (Bld) [#/Vol] 0.1 103/mcL Normal 0.0 - 0.3 10^3/mcL AH Workflow SS Basophils/100 WBC (Bld) 1.1 % Normal 0.0 - 2.5 % Workflow SS Bilirubin [Mass/Vol] 0.50 mg/dL Normal 0.20 - 1.20 mg/dL AH ADM SS Comment on above: Interpretive Data: U se of this assay is not recommended for patients undergoing treatment with eltrombopag due to the potential for falsely elevated results. Calcium [Mass/Vol] 9.2 mg/dL Normal 8.7 - 10. 4 mg/dL AH ADM SS Chloride [Moles/Vol] 107 mmol/L Normal 98 - 11 0 mEq/L AH ADM SS CO2 [Moles/Vol] 27 mmol/L Normal 22 - 32 mEq/L AH ADM SS Creatinine [Mass/Vol] 0.67 mg/dL Normal 0.50 - 1.20 mg/dL AH ADM SS Electrolyte Balance 4.0 mEq/L Normal [...] (S/P/Bld) [Vol rate/Area] ml/min/1.73sqm Invalid Interpretation Code [facility] S Comment on above: Interpretive Data: [...] (S/P/Bld) [Vol rate/Area] ml/min/1.73sqm Invalid Interpretation Code [facility] S Comment on above: Interpretive Data: [...] 33.7 G/dL Normal 32.0 - 36.0 G/dL Workflow SS MCV (RBC) [Entitic vol] 89.3 [...] Nitrite Negative (06/11/23 12:19 PM) Normal Negative AH Auto Urine SS UA pH 5.5 (06/11/23 12:19 PM) Normal 5.0 - 8.0 AH Auto Urine SS UA Protein Negative Normal Negative AH Auto Urine SS UA Spec Grav 1.010 (06/11/23 12:19 PM) Normal 1.006-1.029 AH Auto Urine SS UA Specimen Type Clean Catch (06/11/23 12:19 PM) Normal AH Auto Urine SS UA Urobilinogen 1.0 E.U./dL Normal 0.2-1.0 AH Auto Urine SS LABORATORYOrdered By: Luis Fernando Farooq on 06-11-2023 aPTT Coag (Bld) [Time] 35.5 s High 25.0 - 35.0 seconds AH [facility] SS Comment on above: Interpretive Data: F or Heparin anticoagulation therapy, the recommended therapeutic range is: 54-77 seconds (APTT Correlation with Anti-Xa therapeutic range of 0.3-0.7 units/ml). PLEASE REFERENCE THE PHARMACY PROTOCOL FOR DOSING. Heparin dose (APTT) None Normal AH Co agulation S PT Coag (PPP) [Time] 12.2 s Normal 9.0 - 1 4.2 seconds [facility] SS Comment on above: Interpretive Data: E ffective 09/24/07, Protime results may be affected by some antibiotics (i.e. Ciprofloxacin, Azithromycin, Bactrim) which may potentiate the action of oral anticoagulants, with further increases in Protime/INR. PT International Ratio 1.1 ratio Invalid Interpretation Code [facility] Comment on above: Interpretive Data: [employer]oy [employer]orenzo [employer] (CHEST, 1991, 102:312S-25S) recommended therapeutic range for oral anticoagulant therapy is: LOW RISK: Prophylaxis of venous thrombosis INR: 2.0-3.0 Treatment of pulmonary embolism 2.0-3.0 Prevention of systemic embolism 2.0-3.0 HIGH RISK: Mechanical prosthetic valves 2.5-3.5 PROon 06-11-2023 INR Coag (PPP) [Relative time] 1.1 {INR} Normal [facility] ([place]) Comment on above: Result Comment: [employer] (CHEST, 1991, 102:312S-25S) recommended therapeutic range for oral anticoagulant therapy is: LOW RISK: Prophylaxis of venous thrombosis INR: 2.0-3.0 Treatment of pulmonary embolism 2.0-3.0 Prevention of systemic embolism 2.0-3.0 HIGH RISK: Mechanical prosthetic valves 2.5-3.5 Performed By: #### C SUSAN WINTERS ANEU #### [address] [address] PT Coag (PPP) [Time] 12.2 s Normal 9.0-14.2 [facility] ([place]) Comment on above: Result Comment: Effe ctive 09/24/07, Protime results may be affected by some antibiotics (i.e. Ciprofloxacin, Azithromycin, Bactrim) which may potentiate the action of oral anticoagulants, with further increases in Protime/INR. Performed By: #### C SUSAN WINTERS ANEU #### [facility] [address] [place] [address] UAon 06-11-2023 Color (U) Straw Normal [facility] ([place]) Comment on above: Performed By: #### U A #### [address] [address] Glucose (U) [Mass/Vol] Negative Normal Negative [facility] ([place]) Comment on above: Performed By: #### U A #### [place] [address] Ketones Ql (U) Negative Normal Neg-Trace [facility] ([place]) Comment on above: Performed By: #### U A #### [place] [address] UA Appear Clear Normal Clear [facility] ([place]) Comment on above: Performed By: #### U A #### [place] [address] UA Blood Negative Normal Neg-Trace [facility] ([place]) Comment on above: Performed By: #### U A #### [place] [address] UA Leuk Est Negative Normal Negative [facility] ([place]) Comment on above: Performed By: #### U A #### [place] [address] UA Nitrite Negative Normal Negative [facility] ([place]) Comment on above: Performed By: #### U A #### [place] [address] UA pH 5.5 Normal 5.0 - 8.0 [facility] ([place]) Comment on above: Performed By: #### U A #### [place] [address] UA Protein Negative Normal Negative [facility] ([place]) Comment on above: Performed By: #### U A #### [place] [address] UA Spec Grav 1.010 Normal 1.006-1.029 [facility] ([place]) Comment on above: Performed By: #### U A #### [place] [address] UA Specimen Type Clean Catch Normal [facility] ([place]) Comment on above: Performed By: #### U A #### [address] [place] [address] UA Urobilinogen 1.0 E.U./dL Normal 0.2-1.0 [facility] ([place]) Comment on above: Performed By: #### U A #### [address] [address] Urobilinogen (U) [Mass/Vol] Negative Normal Neg-Trace [facility] ([place]) Comment on above: Performed By: #### U A #### [address] [address] Serum or plasma thyroid stim ulating hormone (TSH) measurement (units/volume)Ordered By: Dawn Rivera on 05-17-2023 TSH Qn 2.28 uIU/mL 0.358-3.74 [facility] Serum or plasma thyroxine (T 4) measurement (mass/volume)Ordered By: Dawn Rivera on 05-17-2023 T4 [Mass/Vol] 10.8 ug/dL 4.8-13.[address] [facility] [address] SPINE THORACIC W/O CONTRA STon 05-05-2023 [...] Date: 05/05/2023 4:19:13 PM Ordering Provider: NESTOR LASSITER [facility] ([place]) XR SPINE LUMBAR AP/LAT/FLEX/ EXTon 04-24-2023 XR SPINE LUMBAR AP/LAT/FLEX/EXT ORIGINAL EXAMINATION: AP lateral flexion and extension 4 XRAY VIEWS OF THE LUMBAR SPINE04/18/2023 10:32 am COMPARISON: CT lumbar 02/05/2023 HISTORY: [...] Date: 04/24/2023 11:09:20 AM Ordering Provider: NESTOR Dash [facility] ([place]) XR SPINE THORACIC 2 VIEWSon 04-24-2023 XR [...] AM Ordering Provider: NESTOR Dash [facility] ([place]) T4 (THYROXINE) TOTALon 02-21 T4 (THYROXINE) TOTAL Normal [facility] Comment on above: Result Comment: THYR OXINE(T4) Performed By: #### 2 54316 #### [facility],[address] [place] [address] T4 [Mass/Vol] 7.4 ug/dL Normal 4.7 - 13.[address] [facility] Comment on above: Performed By: #### 2 95090 #### [facility],[address] [place], [place] [address] TSHon 02-21-2023 TSH Qn 1.89 m[IU]/L Normal 0.35 - 3.[address] [facility] Comment on above: Performed By: #### 2 61230 #### [facility],[address] [place] [address] CT SPINE LUMBAR W/O CONTRAST on 02-09-2023 [...] PM Ordering Provider: NESTOR Dash [facility] ([place]) URINE CULTURE [CCL]on 2022 Bacteria identified Cx [...] and its performance characteristics determined by the [facility] [place] [facility]). It has not been cleared or approved by the FDA. [facility] is regulated under CLIA as qualified to perform high-complexity testing. This test is used for clinical purposes. It should not be regarded as investigational or for research. SOURCE: URINE [facility] [address] [place], [facility] Melvin De Anda III, M.D. [id number] SEND TO NO Normal [facility] Comment on above: Performed By: #### 2 17796 #### [facility],[address] [place] [address] URINALYSISon 02-06-2023 Amorphous NONE Normal [facility] Comment on above: Performed By: #### 2 37764 #### [facility],[address] [place] [address] Bacteria 2+ Normal [facility] Comment on above: Performed By: #### 2 45644 #### [facility],[address] [place], [place] [phone] Bilirubin Ql (U) Negative Normal NORMAL: NEGATIVE [facility] Comment on above: Performed By: #### 2 42495 #### [facility],[address] [place] [address] Casts NONE Normal [facility] Comment on above: Performed By: #### 2 41668 #### [facility],[address] [place], [place] [phone] Clarity (U) CLOUDY Abnormal NORMAL: CLEAR [facility] Comment on above: Performed By: #### 2 07335 #### [facility],[address] [place] [address] Color (U) yellow Normal NORMAL: YELLOW [facility] Comment on above: Performed By: #### 2 77824 #### [facility],[address] [place] [address] Crystals LM Nom (Urine sed) NONE Normal [facility] Comment on above: Performed By: #### 2 89584 #### [facility],[address] [place] [address] Epi Cells NONE Normal [facility] Comment on above: Performed By: #### 2 01656 #### [facility],[address] [place] [address] Glucose Ql (U) NORM Normal NORMAL: NORMAL [facility] Comment on above: Performed By: #### 2 43783 #### [facility],[address] [place] [address] Hemoglobin Ql (U) 50 Abnormal NORMAL: NEGATIVE [facility] Comment on above: Performed By: #### 2 21011 #### [facility],[address] [place] [address] Ketone 5 Abnormal NORMAL: NEGATIVE [facility] Comment on above: Performed By: #### 2 24352 #### [facility],[address] [place] [address] Leukocytes 500 Abnormal NORMAL: NEGATIVE [facility] Comment on above: Performed By: #### 2 41712 #### [facility],[address] [place] [address] Mucous NONE Normal [facility] Comment on above: Performed By: #### 2 21923 #### [facility],[address] [place] [address] Nitrite Ql (U) Positive Normal NORMAL: NEGATIVE [facility] Comment on above: Performed By: #### 2 41731 #### [facility],[address] [place] [address] pH (U) 6 [pH] Normal NORMAL: 5.0-8.0 [facility] Comment on above: Performed By: #### 2 57216 #### [facility],[address] [place] [address] Protein Ql (U) 100 Abnormal NORMAL: NEGATIVE [facility] Comment on above: Performed By: #### 2 38674 #### [facility],[address] [place] [address] Rbc NONE Normal 0-3/hpf [facility] Comment on above: Performed By: #### 2 74159 #### [facility],[address] [place] [address] Sp [place] 1.015 Normal NORMAL: 1.010-1.030 [facility] Comment on above: Performed By: #### 2 93416 #### [facility],[address] [place] [address] Specimen Type Feldman Normal [facility] Comment on above: Performed By: #### 2 72252 #### [facility],[address] [place] [address] Urinalysis dipstick W Reflex Microscopic panel (U) SEE BELOW Normal [facility] Comment on above: Result Comment: MICR OSCOPIC Performed By: #### 2 30814 #### [facility],[address] [place] [address] Urobilinog NORM Normal NORMAL: NORMAL [facility] Comment on above: Performed By: #### 2 44996 #### [facility],[address] [place] [address] WBC (U) [#/Vol] /uL Normal 0-5/hpf [facility] Comment on above: Performed By: #### 2 72773 #### [facility],[address] [place] [address] Yeast NONE Normal [facility] Comment on above: Performed By: #### 2 93188 #### [facility],[address] [place] [address] Bacteria Ur Culton 3 Bacteria identified Cx Nom (U) ORGANISM [...] , Intermediate >32 , Resistant >64 Abnormal [facility] Comment on above: Performed By: #### 6 30-4 #### [facility] CLIA [id number] [address] [place], [place] [id number] [place] T4-FREE (FREE THYROXINE)on 04-07-2022 Free T4 [Mass/Vol] 1.55 ng/dL High 0.76 - 1.46 [facility] Comment on above: Result Comment: P otential of falsely elevated results when biotin concentrations are > 10 ng/mL. Performed By: #### 2 60680 #### [facility],[address] [place] [address] BMP with eGFRon 01-29-2023 AGE 62 years Normal [facility] Comment on above: Performed By: #### 2 23780 #### [facility],[address] [place] [address] Anion gap [Moles/Vol] 11 mmol/L Normal - [facility] Comment on above: Performed By: #### 2 10591 #### [facility],[address] [place] [address] BMP with eGFR Normal [facility] Comment on above: Result Comment: BASI C METABOLIC PANEL Performed By: #### 2 17195 #### [facility],[address] [place] [address] Calcium [Mass/Vol] 8.7 mg/dL Normal 8.5 - 10.1 [facility] Comment on above: Performed By: #### 2 24143 #### [facility],[address] [place] [address] Chloride [Moles/Vol] 98 mmol/L Normal 98 - 107 [facility] Comment on above: Performed By: #### 2 46407 #### [facility],[address] [place] [address] CO2 [Moles/Vol] 29.5 mmol/L Normal 21.0 - 32.0 [facility] Comment on above: Performed By: #### 2 16738 #### [facility],[address] [place] [address] Creatinine [Mass/Vol] 0.88 mg/dL Normal 0.55 - 1.02 [facility] Comment on above: Performed By: #### 2 74462 #### [facility],[address] [place] [address] GFR/1.73 sq M.predicted among non-blacks MDRD (S/P/Bld) [Vol rate/Area] mL/min/{1.73_m2} Normal 60 - 999 [facility] Comment on above: Performed By: #### 2 32476 #### [facility],[address] [place], [place] [phone] Result Comment: ACCO RDING TO THE NATIONAL KIDNEY DISEASE EDUCATION PROGRAM(NKDE), A NORMAL eGFR IS A VALUE GREATER THAN OR EQUAL TO 60 ML/MIN/1.73 SQ METERS. CHRONIC KIDNEY DISEASE: <60mL/MIN/1.73 SQ METERS KIDNEY FAILURE: <15mL/MIN/1.73 SQ METERS THIS TEST SHOULD ONLY BE USED FOR PATIENTS 18 YEARS OF AGE AND OLDER. Glucose [Mass/Vol] 205 mg/dL High 74 - 106 [facility] Comment on above: Performed By: #### 2 46963 #### [facility],[address] [place] [address] Potassium [Moles/Vol] 4.0 mmol/L Normal 3.5 - 5.1 [facility] Comment on above: Performed By: #### 2 92460 #### [facility],[address] [place] [address] Sodium [Moles/Vol] 134 mmol/L Low 136 - 145 [facility] Comment on above: Performed By: #### 2 39133 #### [facility],[address] [place] [address] Urea nitrogen [Mass/Vol] 16 mg/dL Normal 7 - 18 [facility] Comment on above: Performed By: #### 2 41129 #### [facility],[address] [place] [address] CBC + DIFFon 01-29-2023 Baso # 0.10 x10EE3/UL Normal 0.00 - 0.10 [facility] Comment on above: Performed By: #### 2 87682 #### [facility],[address] [place] [address] Basophils/100 WBC (Bld) 1.0 % Normal 0.0 - 2.0 [facility] Comment on above: Performed By: #### 2 51226 #### [facility],[address] [place] [address] CBC + DIFF Normal [facility] Comment on above: Result Comment: CBC- COMPLETE BLOOD COUNT Performed By: #### 2 39598 #### [place] [address] EO # 0.20 x10EE3/UL Normal 0.00 - 0.50 [facility] Comment on above: Performed By: #### 2 35943 #### [facility],[address] [place] [address] Eosinophils/100 WBC (Bld) 2.3 % Normal 0.0 - 7.0 [facility] Comment on above: Performed By: #### 2 91710 #### [facility],[address] [place] [address] Erythrocyte distribution width (RBC) [Ratio] 12.9 % Normal 12.0 - 15.6 [facility] Comment on above: Performed By: #### 2 67571 #### [facility],[address] [place] [address] Hematocrit (Bld) [Volume fraction] 29.0 % Low 34.0 - 46.0 [facility] Comment on above: Performed By: #### 2 42614 #### [facility],[address] [place] [address] Hemoglobin (Bld) [Mass/Vol] 9.5 g/dL Low 12.0 - 16.0 [facility] Comment on above: Performed By: #### 2 40594 #### [facility],[address] [place] [address] Lymph # 1.70 x10EE3/UL Normal 0.80 - 2.80 [facility] Comment on above: Performed By: #### 2 93031 #### [facility],[address] [place] [address] Lymphocytes/100 WBC (Bld) 20.9 % Normal 20.0 - 45.0 [facility] Comment on above: Performed By: #### 2 66309 #### [facility],[address] [place] [address] MANUAL DIFF N/A Normal [facility] Comment on above: Performed By: #### 2 84330 #### [facility],[address] [place] [address] MCH (RBC) [Entitic mass] 31 pg Normal 27 - 33 [facility] Comment on above: Performed By: #### 2 38770 #### [facility],[address] [place] [address] MCHC 33 X10 3 Normal 32 - 36 [facility] Comment on above: Performed By: #### 2 52705 #### [facility],[address] [place], [place] [phone] MCV (RBC) [Entitic vol] 94 fL Normal 80 - 99 [facility] Comment on above: Performed By: #### 2 65279 #### [facility],[address] [place] [address] [place] # 0.60 x10EE3/UL Normal 0.20 - 1.00 [facility] Comment on above: Performed By: #### 2 49692 #### [facility],[address] [place] [address] MONOS % 8.0 % Normal 0.0 - 10.0 [facility] Comment on above: Performed By: #### 2 54626 #### [facility],[address] [place] [address] Morphology Ramiro (Bld) [Interp] N/A Normal [facility] Comment on above: Result Comment: {CD] Performed By: #### 2 57694 #### [facility],[address] [place] [address] Neut # 5.50 x10EE3/UL Normal 1.50 - 7.10 [facility] Comment on above: Performed By: #### 2 41983 #### [facility],[address] [place] [address] Neutrophils/100 WBC (Bld) 67.8 % Normal 46.0 - 76.0 [facility] Comment on above: Performed By: #### 2 92693 #### [facility],[address] [place] [address] PLATELET 507 x10EE3/UL High 150 - [address] [facility] Comment on above: Performed By: #### 2 27428 #### [facility],[address] [place] [address] Platelet mean volume (Bld) [Entitic vol] 8.4 fL Normal 6.6 - 10.5 [facility] Comment on above: Result Comment: AUTO MATED DIFFERENTIAL Performed By: #### 2 79275 #### [facility],[address] [place] [address] 15896 RBC 3.10 x 10EE6/UL Low 4.10 - 5.30 [facility] Comment on above: Performed By: #### 2 94834 #### [facility],[address] [place] [address] WBC 8.1 x 10EE3/UL Normal 4.5 - 10.8 [facility] Comment on above: Performed By: #### 2 44609 #### [facility],[address] [place] [address] HEMOGLOBIN A1C (POM)on 01-29 HbA1c (Bld) [Mass fraction] 9.7 % High 0.0 - 6.5 [facility] Comment on above: Result Comment: BLDo HEMOGLOBIN A1C REFERENCE RANGESBLDo Suggested Diagnosis HbA1c(%) HbA1C (mmol/mol Diabetic >/=6.5 >/=48 Prediabetes 5.7 - 6.4 39 - 47 Normal <5.7 <39 Performed By: #### 2 13824 #### [facility],[address] [place] [address] LIPID PROFILEon 01-29-2023 Cholesterol [Mass/Vol] 128 mg/dL Normal 0 - 240 [facility] Comment on above: Performed By: #### 2 74637 #### [facility],[address] [place] [address] Cholesterol in HDL [Mass/Vol] 45 mg/dL Normal 40 - 60 [facility] Comment on above: Performed By: #### 2 54253 #### [facility],[address] [place] [address] Cholesterol in LDL [Mass/Vol] 60 mg/dL Normal 0 - 129 [facility] Comment on above: Performed By: #### 2 09892 #### [facility],[address] [place] [address]297 Cholesterol.total/Ch olesterol in HDL [Mass ratio] 2.8 {ratio} Normal 0.0 - 5.0 [facility] Comment on above: Performed By: #### 2 82451 #### [facility],[address] [place] [address]35[address] Lipid 1996 panel Normal [facility] Comment on above: Result Comment: LIPI D PROFILE Performed By: #### 2 60341 #### [facility],[address] [place] [address] 39594 Triglyceride [Mass/Vol] 116 mg/dL Normal 0 - 150 [facility] Comment on above: Performed By: #### 2 62021 #### [facility],[address] [place] [address] TSHon 01-29-2023 TSH Qn 13.42 m[IU]/L High 0.35 - 3.74 [facility] Comment on above: Performed By: #### 2 60422 #### [facility],[address] [place] [address] .Auto Diffon 01-17-2023 Basophil, Absolute 0.0 10 3/mcL Normal 0.0-0.3 [facility] ([place]) Comment on above: Performed By: #### U AMIC, UA #### [facility] [address] [place] [address] Basophils/100 WBC (Bld) 0.4 % Normal 0.0-2.5 [facility] ([place]) Comment on above: Performed By: #### U AMIC, UA #### [address] [address] Eosinophil, Absolute 0.2 10 3/mcL Normal 0.0-0.7 [facility] ([place]) Comment on above: Performed By: #### U AMIC, UA #### [address] [address] Eosinophils/100 WBC (Bld) 2.3 % Normal 0.0-6.0 [facility] ([place]) Comment on above: Performed By: #### U AMIC, UA #### [address] [address] Lymphocyte, Absolute 1.8 10 3/mcL Normal 0.9-4.3 [facility] ([place]) Comment on above: Performed By: #### U AMIC, UA #### [facility] [address] [place] [address]165 Lymphocytes/100 WBC (Bld) 22.3 % Normal 20.0-40.0 [facility] ([place]) Comment on above: Performed By: #### U AMIC, UA #### [facility] [address] [place] [address]66 Monocyte, Absolute 0.7 10 3/mcL Normal 0.1-1.4 [facility] ([place]) Comment on above: Performed By: #### U AMIC, UA #### [address] [address] Monocytes/100 WBC (Bld) 8.4 % Normal 2.0-13.0 [facility] ([place]) Comment on above: Performed By: #### U AMIC, UA #### [address] [address] Neutrophils/100 WBC (Bld) 66.6 % Normal 50.0-75.0 [facility] ([place]) Comment on above: Performed By: #### U AMIC, UA #### [address] [address] .GFRon 01-17-2023 GFR >60 Normal [facility] ([place]) Comment on above: Result Comment: GFR Population [...] meters Performed By: #### U A #### [address] [address] GFR Non- 53 ml/min/1.73sqm Normal [facility] ([place]) Comment on above: Result Comment: GFR Population [...] meters Performed By: #### U A #### [address] [address] .NEUABSon 01-17-2023 Neutrophil, Absolute 5.3 10 3/mcL Normal 2.3-8.1 [facility] ([place]) Comment on above: Performed By: #### U CONSUELO UA #### [place] [id number] A1Con 01-17-2023 HbA1c (Bld) [Mass fraction] 10.4 % High 4.0-6.0 [facility] ([place]) Comment on above: Performed By: #### U CONSUELO UA #### [place] [place] [address] BMPon 01-17-2023 BUN/Creatinine Ratio 13.3 ratio Normal 10.0-22.0 [facility] ([place]) Comment on above: Performed By: #### U A #### [place] [address] Calcium [Mass/Vol] 7.6 mg/dL Low 8.7-10.4 [facility] ([place]) Comment on above: Performed By: #### U A #### [place] [id number] Chloride [Moles/Vol] 109 mmol/L Normal 98-110 [facility] ([place]) Comment on above: Performed By: #### U A #### [place] [id number] CO2 [Moles/Vol] 24 mmol/L Normal 22-32 [facility] ([place]) Comment on above: Performed By: #### U A #### [place] [id number] Creatinine [Mass/Vol] 1.05 mg/dL Normal 0.50-1.20 [facility] ([place]) Comment on above: Performed By: #### U A #### [place] [address] Electrolyte Balance 10.0 mEq/L Normal 4.0-15.0 [facility] ([place]) Comment on above: Performed By: #### U A #### [address] [address] Glucose [Mass/Vol] 192 mg/dL High 82-115 [facility] ([place]) Comment on above: Performed By: #### U A #### [address] [address] Potassium [Moles/Vol] 4.5 mmol/L Normal 3.5-5.0 [facility] ([place]) Comment on above: Performed By: #### U A #### [address] [address] Sodium [Moles/Vol] 143 mmol/L Normal 136-145 [facility] ([place]) Comment on above: Performed By: #### U A #### [place] [id number] Urea nitrogen [Mass/Vol] 14.0 mg/dL Normal 8.0-22.0 [facility] ([place]) Comment on above: Performed By: #### U A #### [address] [address] CBCon 01-17-2023 Erythrocyte distribution width (RBC) [Ratio] 13.0 % Normal 11.5-15.5 [facility] ([place]) Comment on above: Performed By: #### U AMIC, UA #### [address] [address] Hematocrit (Bld) [Volume fraction] 27.8 % Low 34.0-46.0 [facility] ([place]) Comment on above: Performed By: #### U AMIC, UA #### [address] [address] Hgb 9.2 G/dL Low 12.0-16.0 [facility] ([place]) Comment on above: Performed By: #### U AMIC, UA #### [address] [address] MCH (RBC) [Entitic mass] 31.9 pg Normal 27.0-33.0 [facility] ([place]) Comment on above: Performed By: #### U AMIC, UA #### [facility] [address] [place] [address] MCHC 33.2 G/dL Normal 32.0-36.0 [facility] ([place]) Comment on above: Performed By: #### U AMIC, UA #### [facility] [address] [place] [address] MCV (RBC) [Entitic vol] 96.2 fL Normal 80.0-99.0 [facility] ([place]) Comment on above: Performed By: #### U AMIC, UA #### [address] [address] Platelet 225 10 3/mcL Normal 150-450 [facility] ([place]) Comment on above: Performed By: #### U AMIC, UA #### [address] [address] Platelet mean volume (Bld) [Entitic vol] 9.0 fL Normal 6.6-10.5 [facility] ([place]) Comment on above: Performed By: #### U AMIC, UA #### [address] [address] RBC 2.89 10 6/mcL Low 4.10-5.30 [facility] ([place]) Comment on above: Performed By: #### U AMIC, UA #### [address] [address] WBC 8.0 10 3/mcL Normal 4.5-10.8 [facility] ([place]) Comment on above: Performed By: #### U AMIC, UA #### [address] [address] LABORATORYOrdered By: Darby be on 01-17-2023 LDose Vancomycin:(trough) Unknown (01/17/23 11:07 AM) Invalid Interpretation Code Chemistry S LABORATORYOrdered By: SYSTEM SYSTEM on 01-17-2023 Vancomycin trough [Mass/Vol] 17.1 ug/mL Invalid Interpretation Code 5.0 - 20.0 mcg/mL AH ADM SS Basophils (Bld) [#/Vol] 0.0 103/mcL [...] [Vol rate/Area] 53 ml/min/1.73sqm Invalid Interpretation Code Chemistry S Comment [...] 4.3 10^3/mcL Workflow SS Lymphocytes/100 WBC (Bld) 22.3 % Invalid Interpretation Code 20.0 - 40.0 % Workflow SS MCH (RBC) [Entitic mass] 31.9 pg Invalid Interpretation Code 27.0 - 33.0 pg Workflow SS MCHC 33.2 G/dL Invalid Interpretation Code 32.0 - 36.0 G/dL Workflow SS MCV (RBC) [Entitic vol] 96.2 fL Invalid Interpretation Code 80.0 - 99.0 fL Workflow SS Monocytes (Bld) [#/Vol] 0.7 103/mcL Invalid Interpretation Code 0.1 - 1.4 10^3/mcL Workflow SS Monocytes/100 WBC (Bld) 8.4 % Invalid Interpretation Code 2.0 - 13.0 % Workflow SS Neutrophils (Bld) [#/Vol] 5.3 103/mcL Invalid Interpretation Code 2.3 - 8.1 10^3/mcL Workflow SS Neutrophils/100 WBC (Bld) 66.6 % Invalid Interpretation Code 50.0 - 75.0 % Workflow SS Platelet mean volume (Bld) [Entitic vol] 9.0 fL Invalid Interpretation Code 6.6 - 10.5 fL Workflow SS Platelets (Bld) [#/Vol] 225 103/mcL Invalid Interpretation Code 150 - 450 10^3/mcL AH Workflow SS Potassium [Moles/Vol] 4.5 mmol/L Invalid Interpretation Code 3.5 - 5.0 mEq/L ADM SS RBC (Bld) [#/Vol] 2.89 106/mcL Invalid Interpretation Code 4.10 - 5.30 10^6/mcL Workflow SS Sodium [Moles/Vol] 143 mmol/L Invalid Interpretation Code 136 - 145 mEq/L ADM SS Urea nitrogen [Mass/Vol] 14.0 mg/dL Invalid Interpretation Code 8.0 - 22.0 mg/dL ADM SS Urea nitrogen/Creatinine [Mass ratio] 13.3 ratio Invalid Interpretation Code 10.0 - 22.0 ratio ADM SS WBC (Bld) [#/Vol] 8.0 103/mcL Invalid Interpretation Code 4.5 - 10.8 10^3/mcL Workflow SS LABORATORYOrdered By: Anna Piña on 01-17-2023 Glucose [Mass/Vol] 191 mg/dL Invalid Interpretation Code 82 - 115 mg/dL [facility] LABORATORYOrdered By: Fariha Colmenares on 01-17-2023 Blood Glucose Testing Reason Routine (01/17/23 7:31 AM) [facility] Glucose [Mass/Vol] 191 mg/dL Invalid Interpretation Code 82 - 115 mg/dL [facility] UAMICon 01-17-2023 UA Bacteria 1+ /hpf Abnormal Negative [facility] ([place]) Comment on above: Performed By: #### U AMIC, UA #### [facility] [address] [place] [address] UA Mucous 2+ /hpf Normal [facility] ([place]) Comment on above: Performed By: #### U AMIC, UA #### [facility] [address] [place] [address] UA RBC Negative Normal 0-2 [facility] ([place]) Comment on above: Performed By: #### U AMIC, UA #### [place] [address] UA Squam Epithelial 5-10 Normal 0-20 [facility] ([place]) Comment on above: Performed By: #### U AMIC, UA #### [place] [address] UA Transitional Epithelial 0-2 Normal [facility] ([place]) Comment on above: Performed By: #### U AMIC, UA #### [place] [address] UA Uric Ac Crystals Trace Normal [facility] ([place]) Comment on above: Performed By: #### U AMIC, UA #### [place] [address] UA WBC 3-5 Normal 0-5 [facility] ([place]) Comment on above: Performed By: #### U AMIC, UA #### [place] [address] UA Yeast 4+ /hpf Abnormal [facility] ([place]) Comment on above: Performed By: #### U AMIC, UA #### [place] [address] [facility]23 LDose Vancomycin:(trough) Unknown Normal [facility] ([place]) Comment on above: Performed By: #### U A #### [place] [address] Vancomycin Tr 17.1 mcg/mL Normal 5.0-20.0 [facility] ([place]) Comment on above: Performed By: #### U A #### [place] [address] .GFRon 01-16-2023 GFR >60 Normal [facility] ([place]) Comment on above: Result Comment: GFR Population [...] meters Performed By: #### U A #### [address] [address] GFR Non- 60 ml/min/1.73sqm Normal [facility] ([place]) Comment on above: Result Comment: GFR Population [...] meters Performed By: #### U A #### [address] [address] BUNon 01-16-2023 Urea nitrogen [Mass/Vol] 16.0 mg/dL Normal 8.0-22.0 [facility] ([place]) Comment on above: Performed By: #### U A #### [address] [address] CREon 01-16-2023 Creatinine [Mass/Vol] 0.94 mg/dL Normal 0.50-1.20 [facility] ([place]) Comment on above: Performed By: #### U A #### [address] [address] LABORATORYOrdered By: Samina Burris on 01-16-2023 Appearance (U) Cloudy *ABN* (01/16/23 9:47 PM) Invalid Interpretation Code Clear AH Auto Urine SS Bacteria LM.HPF (Urine sed) [#/Area] 1 /[HPF] Invalid Interpretation Code Negative AH Auto Urine SS Bilirubin Ql (U) Negative (01/16/23 9:47 PM) Invalid Interpretation Code Neg-Trace AH Auto Urine SS Color (U) Yellow (01/16/23 9:47 PM) Invalid Interpretation Code AH Auto Urine SS Glucose Test strip [...] UA Mucous 2+ /HPF Invalid Interpretation Code AH Auto Urine SS UA Nitrite Negative (01/16/23 [...] sed) [#/Area] 4 /[HPF] Invalid Interpretation Code AH Auto Urine SS LABORATORYOrdered By: Chase reece on 01-16-2023 Glucose [Mass/Vol] 201 mg/dL Invalid Interpretation Code 82 - 115 mg/dL [facility] LABORATORYOrdered By: Fariha Colmenares on 01-16-2023 Blood Glucose Testing Reason Routine (01/16/23 11:30 AM) [facility] LABORATORYOrdered By: Mandeep Montes on 01-16-2023 Blood Glucose Testing Reason Routine (01/16/23 8:32 AM) [facility] LABORATORYOrdered By: SYSTEM SYSTEM on 01-16-2023 Creatinine [Mass/Vol] 0.94 mg/dL Invalid Interpretation Code 0.50 - 1.20 mg/dL ADM SS GFR/1.73 sq M.predicted among blacks MDRD (S/P/Bld) [Vol rate/Area] ml/min/1.73sqm Invalid Interpretation Code Moped Chemistry S Comment on above: Interpretive Data: [...] [Vol rate/Area] 60 ml/min/1.73sqm Invalid Interpretation Code Moped Chemistry S Comment on above: Interpretive Data: [...] 8.0 - 22.0 mg/dL AH ADM SS Vancomycin [Mass/Vol] 19.4 mcg/mL Invalid Interpretation Code AH ADM SS LABORATORYOrdered By: Darby be on 01-16-2023 LDose Vancomycin: (random) See eMAR (01/16/23 3:30 AM) Invalid Interpretation Code AH Chemistry S UAon 01-16-2023 Color (U) Yellow Normal [facility] ([place]) Comment on above: Performed By: #### U AMIC, UA #### [place] [address] Glucose (U) [Mass/Vol] 100 mg/dL Abnormal Negative [facility] ([place]) Comment on above: Performed By: #### U AMIC, UA #### [place] [address] Ketones Ql (U) Negative Normal Neg-Trace [facility] ([place]) Comment on above: Performed By: #### U AMIC, UA #### [address] [address] UA Appear Cloudy Abnormal Clear [facility] ([place]) Comment on above: Performed By: #### U AMIC, UA #### [address] [address] UA Blood Negative Normal Neg-Trace [facility] ([place]) Comment on above: Performed By: #### U AMIC, UA #### [address] [address] UA Leuk Est Moderate Abnormal Negative [facility] ([place]) Comment on above: Performed By: #### U AMIC, UA #### [address] [address] UA Nitrite Negative Normal Negative [facility] ([place]) Comment on above: Performed By: #### U AMIC, UA #### [address] [address] UA pH 5.5 Normal 5.0 - 8.0 [facility] ([place]) Comment on above: Performed By: #### U AMIC, UA #### [place] [address] UA Protein Trace Normal Negative [facility] ([place]) Comment on above: Performed By: #### U AMIC, UA #### [place] [address] UA Spec Grav 1.015 Normal 1.006-1.029 [facility] ([place]) Comment on above: Performed By: #### U AMIC, UA #### [place] [address] UA Specimen Type Clean Catch [facility] ([place]) Comment on above: Performed By: #### U AMIC, UA #### [place] [address] UA Urobilinogen 0.2 E.U./dL Normal 0.2-1.0 [facility] ([place]) Comment on above: Performed By: #### U AMIC, UA #### [place] [address] Urobilinogen (U) [Mass/Vol] Negative Normal Neg-Trace [facility] ([place]) Comment on above: Performed By: #### U AMIC, UA #### [place] [address] VANCRon 01-16-2023 LDose Vancomycin: (random) See eMAR Normal [facility] ([place]) Comment on above: Performed By: #### U A #### [place] [address] Vancomycin Lvl (random) 19.4 mcg/mL [facility] ([place]) Comment on above: Performed By: #### U A #### [place] [address] .Auto Diffon 01-15-2023 Basophil, Absolute 0.0 10 3/mcL Normal 0.0-0.3 [facility] ([place]) Comment on above: Performed By: #### U AMIC, UA #### [address] [address] Basophils/100 WBC (Bld) 0.4 % Normal 0.0-2.5 [facility] ([place]) Comment on above: Performed By: #### U AMIC, UA #### [address] [address] Eosinophil, Absolute 0.0 10 3/mcL Normal 0.0-0.7 [facility] ([place]) Comment on above: Performed By: #### U AMIC, UA #### [address] [address] Eosinophils/100 WBC (Bld) 0.1 % Normal 0.0-6.0 [facility] ([place]) Comment on above: Performed By: #### U AMIC, UA #### [address] [address] Lymphocyte, Absolute 1.8 10 3/mcL Normal 0.9-4.3 [facility] ([place]) Comment on above: Performed By: #### U AMIC, UA #### [address] [address] Lymphocytes/100 WBC (Bld) 17.0 % Low 20.0-40.0 [facility] ([place]) Comment on above: Performed By: #### U AMIC, UA #### [address] [address] Monocyte, Absolute 0.9 10 3/mcL Normal 0.1-1.4 [facility] ([place]) Comment on above: Performed By: #### U AMIC, UA #### [address] [address] Monocytes/100 WBC (Bld) 8.4 % Normal 2.0-13.0 [facility] ([place]) Comment on above: Performed By: #### U AMIC, UA #### [address] [address] Neutrophils/100 WBC (Bld) 74.1 % Normal 50.0-75.0 [facility] ([place]) Comment on above: Performed By: #### U AMIC, UA #### [address] [address] .GFRon 01-15-2023 GFR >60 Normal [facility] ([place]) Comment on above: Result Comment: GFR Population [...] Performed By: #### U AMIC, UA #### [place] [address] GFR Non- >60 Normal [facility] ([place]) Comment on above: Result Comment: GFR Population [...] Performed By: #### U AMIC, UA #### [address] [address] .NEUABSon 01-15-2023 Neutrophil, Absolute 7.7 10 3/mcL Normal 2.3-8.1 [facility] ([place]) Comment on above: Performed By: #### U AMIC, UA #### [address] [address] BMPon 01-15-2023 BUN/Creatinine Ratio 20.9 ratio Normal 10.0-22.0 [facility] ([place]) Comment on above: Performed By: #### U AMIC, UA #### [address] [address] Calcium [Mass/Vol] 7.6 mg/dL Low 8.7-10.4 [facility] ([place]) Comment on above: Performed By: #### U AMIC, UA #### [address] [address] Chloride [Moles/Vol] 108 mmol/L Normal 98-110 [facility] ([place]) Comment on above: Performed By: #### U AMIC, UA #### [place] [id number] CO2 [Moles/Vol] 25 mmol/L Normal 22-32 [facility] ([place]) Comment on above: Performed By: #### U AMIC, UA #### [place] [id number] Creatinine [Mass/Vol] 0.86 mg/dL Normal 0.50-1.20 [facility] ([place]) Comment on above: Performed By: #### U AMIC, UA #### [place] [address] Electrolyte Balance 7.0 mEq/L Normal 4.0-15.0 [facility] ([place]) Comment on above: Performed By: #### U AMIC, UA #### [address] [address] Glucose [Mass/Vol] 158 mg/dL High 82-115 [facility] ([place]) Comment on above: Performed By: #### U AMIC, UA #### [place] [id number] Potassium [Moles/Vol] 3.8 mmol/L Normal 3.5-5.0 [facility] ([place]) Comment on above: Result Comment: Spec imen slightly hemolyzed. Performed By: #### U AMIC, UA #### [address] [address] Sodium [Moles/Vol] 140 mmol/L Normal 136-145 [facility] ([place]) Comment on above: Performed By: #### U AMIC, UA #### [address] [address] Urea nitrogen [Mass/Vol] 18.0 mg/dL Normal 8.0-22.0 [facility] ([place]) Comment on above: Performed By: #### U AMIC, UA #### [address] [address] CBCon 01-15-2023 Erythrocyte distribution width (RBC) [Ratio] 12.8 % Normal 11.5-15.5 [facility] ([place]) Comment on above: Performed By: #### U AMIC, UA #### [place] [id number] Hematocrit (Bld) [Volume fraction] 25.5 % Low 34.0-46.0 [facility] ([place]) Comment on above: Performed By: #### U AMIC, UA #### [place] [id number] Hgb 8.4 G/dL Low 12.0-16.0 [facility] ([place]) Comment on above: Performed By: #### U AMIC, UA #### [address] [address] MCH (RBC) [Entitic mass] 31.8 pg Normal 27.0-33.0 [facility] ([place]) Comment on above: Performed By: #### U AMIC, UA #### [place] [address] MCHC 33.0 G/dL Normal 32.0-36.0 [facility] ([place]) Comment on above: Performed By: #### U AMIC, UA #### [place] [id number] MCV (RBC) [Entitic vol] 96.4 fL Normal 80.0-99.0 [facility] ([place]) Comment on above: Performed By: #### U AMIC, UA #### [address] [address] Platelet 171 10 3/mcL Normal 150-450 [facility] ([place]) Comment on above: Performed By: #### U CONSUELO, UA #### [address] [address] Platelet mean volume (Bld) [Entitic vol] 9.2 fL Normal 6.6-10.5 [facility] ([place]) Comment on above: Performed By: #### Keyana CORDERO, UA #### [address] [address] RBC 2.65 10 6/mcL Low 4.10-5.30 [facility] ([place]) Comment on above: Performed By: #### Keyana CORDERO, UA #### [address] [address] WBC 10.4 10 3/mcL Normal 4.5-10.8 [facility] ([place]) Comment on above: Performed By: #### Keyana CORDERO, UA #### [address] [address] LABORATORYOrdered By: Luis Fernando Farooq on 01-15-2023 [...] 0.50 - 1.20 mg/dL AH ADM SS Electrolyte Balance 7.0 mEq/L Invalid Interpretation Code 4.0 - 15.0 mEq/L AH ADM SS Eosinophils (Bld) [#/Vol] 0.0 103/mcL [...] (S/P/Bld) [Vol rate/Area] ml/min/1.73sqm Invalid Interpretation Code Moped Chemistry S Comment on above: Interpretive Data: [...] % AH Workflow SS Hemoglobin (Bld) [Mass/Vol] 8.4 G/dL Invalid Interpretation Code 12.0 - 16.0 G/dL AH Workflow SS Lymphocytes (Bld) [#/Vol] 1.8 103/mcL Invalid Interpretation Code 0.9 - 4.3 10^3/mcL AH Workflow SS Lymphocytes/100 WBC (Bld) 17.0 % Invalid Interpretation Code 20.0 - 40.0 % AH Workflow SS MCH (RBC) [Entitic mass] 31.8 pg Invalid Interpretation Code 27.0 - 33.0 pg AH Workflow SS MCHC 33.0 G/dL Invalid Interpretation Code 32.0 - 36.0 G/dL AH Workflow SS MCV (RBC) [Entitic vol] 96.4 fL Invalid Interpretation Code 80.0 - 99.0 fL AH Workflow SS Monocytes (Bld) [#/Vol] 0.9 103/mcL [...] Invalid Interpretation Code 3.5 - 5.0 mEq/L ADM SS Comment on above: Result Comment: Spec imen slightly hemolyzed. RBC (Bld) [#/Vol] 2.65 106/mcL Invalid Interpretation Code 4.10 - 5.30 10^6/mcL AH Workflow SS Sodium [Moles/Vol] 140 mmol/L Invalid Interpretation Code 136 - 145 mEq/L AH ADM SS Urea nitrogen [Mass/Vol] 18.0 mg/dL Invalid Interpretation Code 8.0 - 22.0 mg/dL ADM SS Urea nitrogen/Creatinine [Mass ratio] 20.9 ratio Invalid Interpretation Code 10.0 - 22.0 ratio AH ADM SS WBC (Bld) [#/Vol] 10.4 103/mcL Invalid Interpretation Code 4.5 - 10.8 10^3/mcL AH Workflow SS [facility] 01-15-2023 LDose Vancomycin:(trough) See eMAR Normal [facility] ([place]) Comment on above: Performed By: #### V ANCT #### [address] [address] Vancomycin Tr 35.8 mcg/mL Critically abnormal 5.0-20.0 [facility] ([place]) Comment on above: Performed By: #### V ANCT #### [address] [address] .Auto Diffon 01-14-2023 Basophil, Absolute 0.0 10 3/mcL Normal 0.0-0.3 [facility] ([place]) Comment on above: Performed By: #### C SUSAN WINTERS, ANEU #### [address] [address] Basophils/100 WBC (Bld) 0.2 % Normal 0.0-2.5 [facility] ([place]) Comment on above: Performed By: #### SUSAN SAMUEL, ANEU #### [address] [address] Eosinophil, Absolute 0.0 10 3/mcL Normal 0.0-0.7 [facility] ([place]) Comment on above: Performed By: #### SUSAN SAMUEL, ANEU #### [address] [address] Eosinophils/100 WBC (Bld) 0.0 % Normal 0.0-6.0 [facility] ([place]) Comment on above: Performed By: #### C SUSAN WINTERS, ANEU #### [address] [address] Lymphocyte, Absolute 0.8 10 3/mcL Low 0.9-4.3 [facility] ([place]) Comment on above: Performed By: #### C SUSAN WINTERS, ANEU #### [address] [address] Lymphocytes/100 WBC (Bld) 8.1 % Low 20.0-40.0 [facility] ([place]) Comment on above: Performed By: #### C SUSAN WINTERS, ANEU #### [address] [address] Monocyte, Absolute 0.5 10 3/mcL Normal 0.1-1.4 [facility] ([place]) Comment on above: Performed By: #### C SUSAN WINTERS, ANEU #### [address] [address] Monocytes/100 WBC (Bld) 5.1 % Normal 2.0-13.0 [facility] ([place]) Comment on above: Performed By: #### C SUSAN WINTERS, ANEU #### [address] [address] Neutrophils/100 WBC (Bld) 86.6 % High 50.0-75.0 [facility] ([place]) Comment on above: Performed By: #### C SUSAN WINTERS, ANEU #### [address] [address] .GFRon 01-14-2023 GFR >60 Normal [facility] ([place]) Comment on above: Result Comment: GFR Population [...] 15 mL/min/1.73 square meters Performed By: #### C SUSAN WINTERS, ANEU #### [address] [address] GFR Non- >60 Normal [facility] ([place]) Comment on above: Result Comment: GFR Population [...] Performed By: #### SUSAN SAMUEL ANEU #### [place] [address] .NEUABSon 01-14-2023 Neutrophil, Absolute 8.0 10 3/mcL Normal 2.3-8.1 [facility] ([place]) Comment on above: Performed By: #### SUSAN SAMUEL ANEU #### [place] [address] APTTon 01-14-2023 aPTT Coag (Bld) [Time] 27.0 s Normal 25.0-35.0 [facility] ([place]) Comment on above: Result Comment: For Heparin anticoagulation therapy, the recommended therapeutic range is: 54-77 seconds (APTT Correlation with Anti-Xa therapeutic range of 0.3-0.7 units/ml). PLEASE REFERENCE THE PHARMACY PROTOCOL FOR DOSING. Performed By: #### SUSAN SAMUEL ANEU #### [place] [address] Heparin dose (APTT) None Normal [facility] ([place]) Comment on above: Performed By: #### SUSAN SAMUEL ANEU #### [address] [address] BMPon 01-14-2023 BUN/Creatinine Ratio 17.6 ratio Normal 10.0-22.0 [facility] ([place]) Comment on above: Performed By: #### C SUSAN WINTERS, ANEU #### [address] [address] Calcium [Mass/Vol] 7.6 mg/dL Low 8.7-10.4 [facility] ([place]) Comment on above: Performed By: #### C SUSAN WINTESR, ANEU #### [address] [address] Chloride [Moles/Vol] 108 mmol/L Normal 98-110 [facility] ([place]) Comment on above: Performed By: #### C SUSAN WINTERS, ANEU #### [address] [address] CO2 [Moles/Vol] 24 mmol/L Normal 22-32 [facility] ([place]) Comment on above: Performed By: #### SUSAN SAMUEL, ANEU #### [address] [address] Creatinine [Mass/Vol] 0.74 mg/dL Normal 0.50-1.20 [facility] ([place]) Comment on above: Performed By: #### C SUSAN WINTERS, ANEU #### [address] [address] Electrolyte Balance 7.0 mEq/L Normal 4.0-15.0 [facility] ([place]) Comment on above: Performed By: #### C SUSAN WINTERS, ANEU #### [address] [address] Glucose [Mass/Vol] 354 mg/dL High 82-115 [facility] ([place]) Comment on above: Performed By: #### C SUSAN WINTERS, ANEU #### [address] [address] Potassium [Moles/Vol] 4.1 mmol/L Normal 3.5-5.0 [facility] ([place]) Comment on above: Result Comment: Spec imen slightly hemolyzed. Performed By: #### C VIANEY, SUSAN, ANEU #### [address] [address] Sodium [Moles/Vol] 139 mmol/L Normal 136-145 [facility] ([place]) Comment on above: Performed By: #### SUSAN SAMUEL ANEU #### [place] [address] Urea nitrogen [Mass/Vol] 13.0 mg/dL Normal 8.0-22.0 [facility] ([place]) Comment on above: Performed By: #### SUSAN SAMUEL ANEU #### [place] [address] CBCon 01-14-2023 Erythrocyte distribution width (RBC) [Ratio] 13.1 % Normal 11.5-15.5 [facility] ([place]) Comment on above: Performed By: #### SUSAN SAMUEL ANEU #### [place] [address] Hematocrit (Bld) [Volume fraction] 27.5 % Low 34.0-46.0 [facility] ([place]) Comment on above: Performed By: #### SUSAN SAMUEL ANEU #### [place] [address] Hgb 9.1 G/dL Low 12.0-16.0 [facility] ([place]) Comment on above: Performed By: #### SUSAN SAMUEL ANEU #### [place] [address] MCH (RBC) [Entitic mass] 31.9 pg Normal 27.0-33.0 [facility] ([place]) Comment on above: Performed By: #### SUSAN SAMUEL ANEU #### [place] [address] MCHC 33.2 G/dL Normal 32.0-36.0 [facility] ([place]) Comment on above: Performed By: #### SUSAN SAMUEL ANEU #### [place] [address] MCV (RBC) [Entitic vol] 96.1 fL Normal 80.0-99.0 [facility] ([place]) Comment on above: Performed By: #### SUSAN SAMUEL ANEU #### [address] [address] Platelet 194 10 3/mcL Normal 150-450 [facility] ([place]) Comment on above: Performed By: #### C SUSAN WINTERS ANEU #### [address] [address] Platelet mean volume (Bld) [Entitic vol] 8.5 fL Normal 6.6-10.5 [facility] ([place]) Comment on above: Performed By: #### SUSAN SAMUEL ANEU #### [address] [address] RBC 2.86 10 6/mcL Low 4.10-5.30 [facility] ([place]) Comment on above: Performed By: #### C SUSAN WINTERS ANEU #### [address] [address] WBC 9.2 10 3/mcL Normal 4.5-10.8 [facility] ([place]) Comment on above: Performed By: #### SUSAN SAMUEL ANEU #### [address] [address] FIBon 01-14-2023 Fibrinogen 484 mg/dL Normal 250-560 [facility] ([place]) Comment on above: Performed By: #### SUSAN SAMUEL ANEU #### [address] [address] LABORATORYOrdered By: Edward Johnson on 01-14-2023 aPTT Coag (Bld) [Time] 27.0 s Invalid Interpretation Code 25.0 - 35.0 seconds [facility] Comment on above: Interpretive Data: F or Heparin anticoagulation therapy, the recommended therapeutic range is: 54-77 seconds (APTT Correlation with Anti-Xa therapeutic range of 0.3-0.7 units/ml). PLEASE REFERENCE THE PHARMACY PROTOCOL FOR DOSING. Fibrinogen 484 mg/dL Invalid Interpretation Code 250 - 560 mg/dL [facility] SS Heparin dose (APTT) None Invalid Interpretation Code AH Coagulation S PT Coag (PPP) [Time] 13.1 s Invalid Interpretation Code 9.0 - 14.2 seconds [facility] Comment on above: Interpretive Data: E ffective 09/24/07, Protime results may be affected by some antibiotics (i.e. Ciprofloxacin, Azithromycin, Bactrim) which may potentiate the action of oral anticoagulants, with further increases in Protime/INR. PT International Ratio 1.2 ratio Invalid Interpretation Code [facility] SS Comment on above: Interpretive Data: [employer]oy [employer]oren[employer] (CHEST, 1991, 102:312S-25S) [...] Code 22 - 32 mEq/L ADM SS Electrolyte Balance 7.0 mEq/L Invalid Interpretation Code 4.0 - 15.0 mEq/L ADM SS Eosinophils (Bld) [#/Vol] 0.0 103/mcL Invalid Interpretation Code 0.0 - 0.7 10^3/mcL Workflow SS Eosinophils/100 WBC (Bld) 0.0 % Invalid Interpretation Code 0.0 - 6.0 % Workflow SS Erythrocyte distribution width (RBC) [Ratio] 13.1 % Invalid Interpretation Code 11.5 - 15.5 % Workflow SS Glucose [Mass/Vol] 354 mg/dL Invalid Interpretation Code 82 - 115 mg/dL ADM SS Hematocrit (Bld) [Volume fraction] 27.5 % Invalid Interpretation Code 34.0 - 46.0 % Workflow SS Hemoglobin (Bld) [Mass/Vol] 9.1 G/dL Invalid Interpretation Code 12.0 - 16.0 G/dL Workflow SS Lymphocytes (Bld) [#/Vol] 0.8 103/mcL [...] fL AH Workflow SS Platelets (Bld) [#/Vol] 194 103/mcL [...] 4.5 - 10.8 10^3/mcL AH Workflow SS PROon 01-14-2023 INR Coag (PPP) [Relative time] 1.2 {INR} Normal [facility] ([place]) Comment on above: Result Comment: [employer] (CHEST, 1992, 102:312S-25S) recommended therapeutic range for oral anticoagulant therapy is: LOW RISK: Prophylaxis of venous thrombosis INR: 2.0-3.0 Treatment of pulmonary embolism 2.0-3.0 Prevention of systemic embolism 2.0-3.0 HIGH RISK: Mechanical prosthetic valves 2.5-3.5 Performed By: #### C SUSAN WINTERS ANEU #### [address] [address] PT Coag (PPP) [Time] 13.1 s Normal 9.0-14.2 [facility] ([place]) Comment on above: Result Comment: Effe ctive 09/24/07, Protime results may be affected by some antibiotics (i.e. Ciprofloxacin, Azithromycin, Bactrim) which may potentiate the action of oral anticoagulants, with further increases in Protime/INR. Performed By: #### C SUSAN WINTERS ANEU #### [address] [address] Michael 01-13-2023 Ethanol Level <10.0 Normal [facility] ([place]) Comment on above: Performed By: #### C SUSAN WINTERS ANEU #### [address] [address] CBC + DIFFon 01-13-2023 Baso # 0.10 x10EE3/UL Normal 0.00 - 0.10 [facility] Comment on above: Performed By: #### 2 21599 #### [facility],[address] [place], [place] [id number] Basophils/100 WBC (Bld) 0.7 % Normal 0.0 - 2.0 [facility] Comment on above: Performed By: #### 2 70898 #### [facility],[address] [place] [address] CBC + DIFF Normal [facility] Comment on above: Result Comment: CBC- COMPLETE BLOOD COUNT Performed By: #### 2 93334 #### [facility],[address] [place] [address] EO # 0.10 x10EE3/UL Normal 0.00 - 0.50 [facility] Comment on above: Performed By: #### 2 88401 #### [facility],[address] [place], [place] [address] Eosinophils/100 WBC (Bld) 0.8 % Normal 0.0 - 7.0 [facility] Comment on above: Performed By: #### 2 12988 #### [facility],[address] [place] [address] Erythrocyte distribution width (RBC) [Ratio] 12.9 % Normal 12.0 - 15.6 [facility] Comment on above: Performed By: #### 2 33457 #### [facility],[address] [place] [address] Hematocrit (Bld) [Volume fraction] 39.2 % Normal 34.0 - 46.0 [facility] Comment on above: Performed By: #### 2 06332 #### [facility],[address] [place] [address] Hemoglobin (Bld) [Mass/Vol] 13.0 g/dL Normal 12.0 - 16.0 [facility] Comment on above: Performed By: #### 2 89481 #### [facility],[address] [place] [address] Lymph # 2.00 x10EE3/UL Normal 0.80 - 2.80 [facility] Comment on above: Performed By: #### 2 99493 #### [facility],[address] [place] [address] Lymphocytes/100 WBC (Bld) 15.5 % Low 20.0 - 45.0 [facility] Comment on above: Performed By: #### 2 47186 #### [facility],[address] [place], [place] [address] MANUAL DIFF N/A Normal [facility] Comment on above: Performed By: #### 2 69449 #### [facility],[address] [place] [address] MCH (RBC) [Entitic mass] 31 pg Normal 27 - 33 [facility] Comment on above: Performed By: #### 2 59541 #### [facility],[address] [place] [address] MCHC 33 X10 3 Normal 32 - 36 [facility] Comment on above: Performed By: #### 2 40925 #### [facility],[address] [place] [address] MCV (RBC) [Entitic vol] 94 fL Normal 80 - 99 [facility] Comment on above: Performed By: #### 2 53569 #### [facility],[address] [place] [address] [place] # 0.40 x10EE3/UL Normal 0.20 - 1.00 [facility] Comment on above: Performed By: #### 2 56529 #### [facility],[address] [place] [address] MONOS % 3.2 % Normal 0.0 - 10.0 [facility] Comment on above: Performed By: #### 2 77861 #### [facility],[address] [place] [address] Morphology Ramiro (Bld) [Interp] N/A Normal [facility] Comment on above: Performed By: #### 2 33244 #### [facility],[address] [place] [address] Neut # 10.10 x10EE3/UL High 1.50 - 7.10 [facility] Comment on above: Performed By: #### 2 93371 #### [facility],[address] [place] [address] Neutrophils/100 WBC (Bld) 79.8 % High 46.0 - 76.0 [facility] Comment on above: Performed By: #### 2 48787 #### [facility],[address] [place] [address] PLATELET 255 x10EE3/UL Normal 150 - [address] [facility] Comment on above: Performed By: #### 2 12074 #### [facility],[address] [place] [address] Platelet mean volume (Bld) [Entitic vol] 8.5 fL Normal 6.6 - 10.5 [facility] Comment on above: Result Comment: AUTO MATED DIFFERENTIAL Performed By: #### 2 66977 #### [facility],[address] [place] [address] RBC 4.15 x 10EE6/UL Normal 4.10 - 5.30 [facility] Comment on above: Performed By: #### 2 82131 #### [facility],[address] [place] [address] WBC 12.6 x 10EE3/UL High 4.5 - 10.8 [facility] Comment on above: Performed By: #### 2 15239 #### [facility],[address] [place] [address] CMP with eGFRon 01-13-2023 AGE 62 years Normal [facility] Comment on above: Performed By: #### 2 12308 #### [facility],[address] [place] [address] Albumin [Mass/Vol] 3.1 g/dL Low 3.4 - 5.0 [facility] Comment on above: Performed By: #### 2 45357 #### [facility],[address] [place] [address] Albumin/Globulin [Mass ratio] 0.8 {ratio} Low 0.9 - 1.6 [facility] Comment on above: Performed By: #### 2 09587 #### [facility],[address] [place] [address] ALK PHOS 148 U/L High 46 - 116 [facility] Comment on above: Performed By: #### 2 57005 #### [facility],[address] [place] [address] ALT [Catalytic activity/Vol] 47 U/L Normal 14 - 59 [facility] Comment on above: Performed By: #### 2 39909 #### [facility],[address] [place] [address] Anion gap [Moles/Vol] 14 mmol/L Normal 10 - 20 [facility] Comment on above: Performed By: #### 2 48190 #### [facility],[address] [place] [address] AST [Catalytic activity/Vol] 59 U/L High 13 - 39 [facility] Comment on above: Performed By: #### 2 80442 #### [facility],[address] [place] [address] B/C RATIO 7 ratio Normal 0 - 30 [facility] Comment on above: Performed By: #### 2 47959 #### [facility],[address] [place] [address] Bilirubin [Mass/Vol] 0.6 mg/dL Normal 0.2 - 1.0 [facility] Comment on above: Performed By: #### 2 41656 #### [facility],[address] [place] [address] Calcium [Mass/Vol] 8.5 mg/dL Normal 8.5 - 10.1 [facility] Comment on above: Performed By: #### 2 49785 #### [facility],[address] [place] [address] Chloride [Moles/Vol] 100 mmol/L Normal 98 - 107 [facility] Comment on above: Performed By: #### 2 91512 #### [facility],[address] [place] [address] CMP with eGFR Normal [facility] Comment on above: Result Comment: COMP REHENSIVE METABOLIC PANEL Performed By: #### 2 12915 #### [facility],[address] [place] [address] CO2 [Moles/Vol] 26.8 mmol/L Normal 21.0 - 32.0 [facility] Comment on above: Performed By: #### 2 40229 #### [facility],[address] [place] [address] Creatinine [Mass/Vol] 0.81 mg/dL Normal 0.55 - 1.02 [facility] Comment on above: Performed By: #### 2 69345 #### [facility],[address] [place] [address] GFR/1.73 sq M.predicted among non-blacks MDRD (S/P/Bld) [Vol rate/Area] mL/min/{1.73_m2} Normal 60 - 999 [facility] Comment on above: Performed By: #### 2 13575 #### [facility],[address] [place] [address] Result Comment: ACCO RDING TO THE NATIONAL KIDNEY DISEASE EDUCATION PROGRAM(NKDE), A NORMAL eGFR IS A VALUE GREATER THAN OR EQUAL TO 60 ML/MIN/1.73 SQ METERS. CHRONIC KIDNEY DISEASE: <60mL/MIN/1.73 SQ METERS KIDNEY FAILURE: <15mL/MIN/1.73 SQ METERS THIS TEST SHOULD ONLY BE USED FOR PATIENTS 18 YEARS OF AGE AND OLDER. Globulin (S) [Mass/Vol] 3.7 g/dL Normal 1.5 - 3.8 [facility] Comment on above: Performed By: #### 2 31840 #### [facility],[address] [place] [address] Glucose [Mass/Vol] 307 mg/dL High 74 - 106 [facility] Comment on above: Performed By: #### 2 23820 #### [facility],[address] [place] [address] Potassium [Moles/Vol] 3.6 mmol/L Normal 3.5 - 5.1 [facility] Comment on above: Performed By: #### 2 29097 #### [facility],[address] [place] [address] Protein [Mass/Vol] 6.8 g/dL Normal 6.4 - 8.2 [facility] Comment on above: Performed By: #### 2 29546 #### [facility],[address] [place] [address] Sodium [Moles/Vol] 137 mmol/L Normal 136 - 145 [facility] Comment on above: Performed By: #### 2 91077 #### [facility],[address] [place] [address] Urea nitrogen [Mass/Vol] 6 mg/dL Low 7 - 18 [facility] Comment on above: Performed By: #### 2 94222 #### [facility],[address] [place], [place] [address] CT BRAIN W/O CONTRASTon 11-0 CT BRAIN W/O CONTRAST [place] [address] Patient: JAMIE WALSH Phone#: : 1960 Age: 62 Gender: F Pt. Type: ER Account: [id number] Location: [facility] Ordering: JOHAN ESCAMILLA Exam Date: 01/13/2023/7:45 Family Phys: DAWNCONSTANCE RIVERA Charge Code: 884159 Physician: Collin Order #: [id number] Dose#: 52.70 PROCEDURE: CT BRAIN WITHOUT CONTRAST [...] 62 Gender: F Pt. Type: ER Account: [id number] Location: 052 Ordering: JOHAN ESCAMILLA Exam Date: 01/13/2023/7:45 Family Phys: DAWN RIVERA Charge Code: 438543 Physician: Collin Order #: [id number] Dose#: 52.70 Approved by: Alexa Crocker MD on 01/13/2023 at 16:47 Normal [facility] CT CERVICAL W/O CONTRASTon 1 03-15-2022 CT CERVICAL W/O CONTRAST [place] [address] Patient: JAMIE WALSH Phone#: : 1960 Age: 62 Gender: F Pt. Type: ER Account: [id number] Location: 052 Ordering: JOHAN STREETER Exam Date: 01/13/2023/7:45 Family Phys: DAWN RIVERA Charge Code: 061795 Physician: Collin Order #: [id number] Dose#: 16.10 PROCEDURE: CT CERVICAL WITHOUT CONTRAST [...] 62 Gender: F Pt. Type: ER Account: [id number] Location: 052 Ordering: JOHAN ESCAMILLA Exam Date: 01/13/2023/7:45 Family Phys: DAWN VICTORIAEDEN Charge Code: 845128 Physician: Collin Order #: [id number] Dose#: 16.10 2. Straightening of the normal cervical lordosis, this may be positional or due to muscle spasm 3. C5-6 degenerative changes with foraminal narrowing Dictated by: Alexa Crocker MD on 01/13/2023 at 16:48 Approved by: Alexa Crocker MD on 01/13/2023 at 16:54 Normal [facility] CT CHEST/ABD/PELVIS C+on CT CHEST/ABD/PELVIS C+ [address] [address] Patient: JAMIE WALSH Phone#: : 1960 Age: 62 Gender: F Pt. Type: ER Account: [id number] Location: 052 Ordering: JOHAN ESCAMILLA Exam Date: 01/13/2023/7:51 Family Phys: DAWN RIVERA Charge Code: 420356 Physician: Collin Order #: [id number] Dose#: 58.60 PROCEDURE: CT CHEST/ABD/PELVIS W COMPARISON: [...] 62 Gender: F Pt. Type: ER Account: [id number] Location: 052 Ordering: JOHNA ESCAMILLA Exam Date: 01/13/2023/7:51 Family Phys: DAWN RIVERA Charge Code: 251303 Physician: Collin Order #: [id number] Dose#: 58.60 BOWEL/MESENTERY: No bowel obstruction or [...] Fatty infiltration of the liver Dictated by: Aelxa Crocker MD on 01/13/2023 at 16:54 Approved by: Alexa Crocker MD on 01/13/2023 at 17:15 Normal [facility] LABORATORYOrdered By: SYSTEM SYSTEM on 01-13-2023 Ethanol [Mass/Vol] mg/dL Invalid Interpretation Code ADM SS MRI SPINE LUMBAR W/O CONTRAS [...] 01/13/2023 3:08:11 PM Ordering Provider: YEYO SIDDIQUI [facility] ([place]) TROPONIN I, HIGH SENSITIVITY on 01-13-2023 HS TROPONIN 6.3 pg/mL Normal 0.0 - 51.4 [facility] Comment on above: Performed By: #### 2 33102 #### [facility],[address] [place] [address] XR FLUORO 1-2 HRS TECH TIMEo n [...] by: Clotilde Alonzo MD Preliminary Report By: Clotiled Alonzo MD Electronically signed By Clotilde Alonzo MD Dictated Date: 01/13/2023 11:32:46 PM Prelim Date: 01/13/2023 11:34:41 PM Sign Date: 01/13/2023 11:34:41 PM Ordering Provider: NESTOR Dash [facility] ([place]) EMERGENCY DEPARTMENT REPORTo n 03-13-2018 EMERGENCY DEPARTMENT [place] [address]KBTXAT INFORMATION MANAGEMENTEMERGENCY DEPARTMENT REPORTPatient: JAMIE WALSH XIOMARA MARTELL M.D.[id number] FStatus: DEP ER EDDate of Service: 03/12/18CHIEF COMPLAINTSinus congestion.ALLERGIESNO KNOWN DRUG ALLERGIES.MEDICATIONST he most recent list of medications shows Zofran, Zocor, Neurontin, magnesium oxide,Prilosec, Celexa, Plavix, Synthroid and Lopressor.HISTORY OF PRESENT ILLNESSMs. Nico is a very nice 57-year-old white female [...] M.D. Signed By: XIOMARA CASTAÑEDA M.D.Tests performed at:[address] [phone] [facility] CHEST (TWO VIEWS) - CXRon CHEST (TWO VIEWS) - CXR [address] [address]Qgxh: NICOJAMIE LPhys: XIOMARA CASTAÑEDA M.D.: [birth year] Age: 57 Sex: FAcct: [id number] Loc: EDExam Date: 03/12/18 Status: REG ERRadiology No.: [id number] Number: [id number] # Type/[id number] RAD / CHEST (TWO VIEWS) - CXRChest x-ray, frontal and lateral, 2 viewsClinical Statement: Shortness of breath, cough, congestionComparison: 08/06/12No focal consolidation, congestion, pleural effusion, or pneumothorax is seen.The cardiomediastinal silhouette and hilar contours are unremarkable.IMPRESSIO N:No acute process.Professional interpretation provided by [facility] [id number].Thank you for this referral.< >Reported By: MAHNAZ SARGENT D.O.Signed In NovaPro By: MAHNAZ SARGENT D.O. << Signature on File>> Reported By: MAHNAZ SARGENT D.O. Signed By: MAHNAZ SARGENT D.O.Tests performed at:[address] [phone] Normal [facility] EMERGENCY DEPARTMENT REPORTo n 03-12-2018 EMERGENCY DEPARTMENT REPORT [place] [address]FASISM INFORMATION MANAGEMENTVETER[facility] [place] [facility] DEPARTMENT REPORTPatient: RIVERStevenPRASADXIOMARA GONZALEZ M.D.[id number] FStatus: DEP ER EDDate of Service: [...] follow up with Dr. Cardenas, who is community organization director for outpatient backup.DIAGNOSISSinusi tis. 03/16/18 1522 _XIOMARA CASTAÑEDA M.D.cc: XIOMARA CASTAÑEDA M.D. << Signature on File>> Reported By: XIOMARA CASTAÑEDA M.D. Signed By: XIOMARA CASTAÑEDA M.D.Tests performed at:[address] [phone] Normal [facility] FLU PCRon 03-12-2018 FLU A (PCR) Negative Normal NEGATIVE [facility] Comment on above: Order Comment: What is the source+ SWAB Performed By: #### L 400.0015 ####[facility] [address] [place] [address] FLU B (PCR) Negative Normal NEGATIVE [facility] Comment on above: Order Comment: What is the source+ SWAB Performed By: #### L 400.0015 ####ML - [address]FLVIP[address] [place] [address] TROPONIN Ton 03-12-2018 Troponin T.cardiac mass conc ug/L Normal 0-0.010 [facility] Comment on above: Performed By: #### L 301.0120 ####[address] [address] CBCon 03-07-2018 Basophils Auto #/vol (Bld) 0.00 x10(3) Normal 0.00-0.10 [facility] Comment on above: Performed By: #### L 200.0010 ####[address] [address] Basophils/100 WBC Auto (Bld) 0.1 % Normal 0.0-1.0 [facility] Comment on above: Performed By: #### L 200.0010 ####[address] [address] Eosinophils Auto #/vol (Bld) 0.00 x10(3) Normal 0.00-0.54 [facility] Comment on above: Performed By: #### L 200.0010 ####[address] [address] Eosinophils/100 WBC Auto (Bld) 0.4 % Low 0.5-4.9 [facility] Comment on above: Performed By: #### L 200.0010 ####[address] [address] Erythrocyte distribution width Auto Ratio (RBC) 14.3 % Normal 12.5-15.7 [facility] Comment on above: Performed By: #### L 200.0010 ####[address] [address] Hematocrit Auto Volume Fraction (Bld) 47.4 % Normal 36.0-48.0 [facility] Comment on above: Performed By: #### L 200.0010 ####[address] [address] Hemoglobin mass conc (Bld) 15.8 g/dL Normal 12.0-16.0 [facility] Comment on above: Performed By: #### L 200.0010 ####[address] [address] Lymphocytes Auto #/vol (Bld) 0.60 x10(3) Low 1.00-3.50 [facility] Comment on above: Performed By: #### L 200.0010 ####[facility] [address] [place] [address] Lymphocytes/100 WBC Auto (Bld) 5.2 % Low 16.0-48.0 [facility] Comment on above: Performed By: #### L 200.0010 ####ML [facility] OFE[address]QUW[address] [place] [address] MCH Auto Entitic mass (RBC) 30.0 pg Normal 28.5-32.9 [facility] Comment on above: Performed By: #### L 200.0010 ####ML [address] [address] MCHC Auto mass conc (RBC) 33.2 g/dL Normal 33.0-36.0 [facility] Comment on above: Performed By: #### L 200.0010 ####ML - [address] [address] MCV Auto Entitic volume (RBC) 90.4 fL Normal 80.0-99.0 [facility] Comment on above: Performed By: #### L 200.0010 ####ML - [address] [address] Monocytes Auto #/vol (Bld) 0.30 x10(3) Normal 0.30-0.80 [facility] Comment on above: Performed By: #### L 200.0010 ####ML - [address] [address] Monocytes/100 WBC Auto (Bld) 2.5 % Low 4.3-11.2 [facility] Comment on above: Performed By: #### L 200.0010 ####ML [address] [address] Neutrophils Auto #/vol (Bld) 10.70 x10(3) High 1.40-6.50 [facility] Comment on above: Performed By: #### L 200.0010 ####ML - [address]WC[address]CTZI[address] [place] [address] Neutrophils/100 WBC Auto (Bld) 91.8 % High 45.0-73.0 [facility] Comment on above: Performed By: #### L 200.0010 ####ML [facility] RV[address] [place] [address]645 Platelet mean volume Auto Entitic volume (Bld) 8.7 fL Normal 7.5-9.5 [facility] Comment on above: Performed By: #### L 200.0010 ####ML [facility] J[address]BCK[address] [place] [address] Platelets Auto #/vol (Bld) 225 X10(3) Normal 150-450 [facility] Comment on above: Performed By: #### L 200.0010 ####ML [address] [address] RBC Auto #/vol (Bld) 5.24 x10(6) High 3.30-5.00 [facility] Comment on above: Performed By: #### L 200.0010 ####ML [facility] Z[address]BHLL[address] [place] [address]31 WBC Auto #/vol (Bld) 11.7 x10(3) High 4.5-10.0 [facility] Comment on above: Performed By: #### L 200.0010 ####[address] [address] CMPon 03-07-2018 A:G RATIO 1.22 Normal 1.1-2.5 [facility] Comment on above: Performed By: #### L 100.0005, L100.0350 ####ML [facility] [address] [place] [address]644 Albumin mass conc 4.3 g/dL Normal 3.5-5.2 [facility] Comment on above: Performed By: #### L 100.0005, L100.0350 ####ML [facility] [address] [place] [address] ALK. PHOS 106 U/L High 35-105 [facility] Comment on above: Performed By: #### L 100.0005, L100.0350 ####ML - [id number] [place] [address] 34912 ALT enzyme act/vol 19 U/L Normal - [facility] Comment on above: Result Comment: SPEC IMEN SHOWS HEMOLYSIS.IF RESULTS DO NOT CLINICALLYCORRELATE, SUGGEST RECOLLECTION. Performed By: #### L 100.0005, L100.0350 ####ML - [id number] [place] [address]443 Anion gap 3 molar conc 17.9 mmol/L Normal - [facility] Comment on above: Performed By: #### L 100.0005, L100.0350 ####ML - [id number] [place] [address] 67497 AST enzyme act/vol 28 U/L Normal - [facility] Comment on above: Performed By: #### L 100.0005, L100.0350 #### - [address] [place] [address]61 Bilirubin Ql (U) 0.5 mg/dL Normal 0.2-1.2 [facility] Comment on above: Performed By: #### L 100.0005, L100.0350 #### - [id number] [place] [address] Calcium mass conc 9.6 mg/dL Normal 8.6-10.0 [facility] Comment on above: Performed By: #### L 100.0005, L100.0350 ####ML - [id number] [place] [address] 50946 Chloride molar conc 107 mmol/L Normal 98-107 [facility] Comment on above: Performed By: #### L 100.0005, L100.0350 ####ML - [id number] [place] [address] Creatinine mass conc 0.63 mg/dL Normal 0.50-0.90 [facility] Comment on above: Performed By: #### L 100.0005, L100.0350 ####ML - [id number] [place] [address] eGFR if AFR JACKY > 60 ml/min/1.73m2 Normal U [facility] Comment on above: Result Comment: eGFR >= [...] By: #### L 100.0005, L100.0350 ####ML - [id number] [place] [address] eGFR nonAFR Jacky > 60 ml/Min/1.73m2 Normal [facility] Comment on above: Performed By: #### L 100.0005, L100.0350 ####ML [facility] [id number] [place] [address]203 Globulin Calculated mass conc (S) 3.5 g/dL Normal 1.5-4.5 [facility] Comment on above: Performed By: #### L 100.0005, L100.0350 ####[facility] [id number] [place] [address] Glucose mass conc 134 mg/dL High 74-106 [facility] Comment on above: Performed By: #### L 100.0005, L100.0350 ####ML [facility] [id number] [place] [address] Potassium molar conc 4.9 mmol/L Normal 3.5-5.0 [facility] Comment on above: Performed By: #### L 100.0005, L100.0350 ####[facility] [id number] [place] [address] Protein mass conc 7.8 g/dL Normal 6.4-8.3 [facility] Comment on above: Performed By: #### L 100.0005, L100.0350 ####ML - UH [id number] [place] [address] Sodium molar conc 141 mmol/L Normal 135-145 [facility] Comment on above: Performed By: #### L 100.0005, L100.0350 ####ML - UH [id number] [place] [address] TCO2 21 mmol/L Low 22-29 [facility] Comment on above: Performed By: #### L 100.0005, L100.0350 ####ML - UH [id number] [place] [address] Urea nitrogen mass conc 12 mg/dL Normal 6-20 [facility] Comment on above: Performed By: #### L 100.0005, L100.0350 ####ML - UH [id number] [place] [address] EMERGENCY DEPARTMENT REPORTo n 03-07-2018 EMERGENCY DEPARTMENT [place]PORT [place] [address]OHEWTZ INFORMATION MANAGEMENTEMERGENCY DEPARTMENT REPORTPatient: JAMIE WALSH MATTHEW H D.O.[id number]/ 57 FStatus: [facility] EDDate of Service: 03/06/18CHIEF COMPLAINTThe patient is [...] HISTORYKnee surgery.PAST MEDICAL HISTORYCAD, hypertension, COPD, previous AL.PHYSICAL EXAMINATIONVital signs: Blood pressure 133/83, temperature 99.4, [...] D.O. Signed By: BLAINE CHAMBERLAIN D.O.Tests performed at:[address] [phone] Normal [facility] FLU PCRon 03-07-2018 FLU A (PCR) Negative Normal NEGATIVE [facility] Comment on above: Order Comment: What is the source+ SWAB Performed By: #### L 400.0015 ####[place] [address] FLU B (PCR) Negative Normal NEGATIVE [facility] Comment on above: Order Comment: What is the source+ SWAB Performed By: #### L 400.0015 ####[address] [address] LIPASEon 03-07-2018 Lipase enzyme act/vol 16 U/L Normal 13-60 [facility] Comment on above: Performed By: #### L 100.0005, L100.0350 ####[place] [address] URINALYSISon 03-07-2018 Bilirubin Ql (U) Negative Normal NEGATIVE [facility] Comment on above: Order Comment: Urine Specimen Source+ CLEAN CATCH Performed By: #### L 200.3000 ####[place] [address] Color Nom (U) YELLOW Normal YELLOW [facility] Comment on above: Order Comment: Urine Specimen Source+ CLEAN CATCH Performed By: #### L 200.3000 ####ML - UH [id number] [place] [address] Glucose Ql (U) Negative Normal NEGATIVE [facility] Comment on above: Order Comment: Urine Specimen Source+ CLEAN CATCH Performed By: #### L 200.3000 ####ML - UH [id number] [place] [address] Hemoglobin Test strip Ql (U) MODERATE Normal NEGATIVE [facility] Comment on above: Order Comment: Urine Specimen Source+ CLEAN CATCH Performed By: #### L 200.3000 ####ML - [id number] [place] [address] Leukocyte esterase Test strip Ql (U) Negative Normal NEGATIVE [facility] Comment on above: Order Comment: Urine Specimen Source+ CLEAN CATCH Performed By: #### L 200.3000 ####ML - [id number] [place] [address] Nitrite Test strip Ql (U) Negative Normal NEGATIVE [facility] Comment on above: Order Comment: Urine Specimen Source+ CLEAN CATCH Performed By: #### L 200.3000 ####ML - [id number] [place] [address] pH Test strip (U) 5.0 [pH] Normal 5.0-8.0 [facility] Comment on above: Order Comment: Urine Specimen Source+ CLEAN CATCH Performed By: #### L 200.3000 ####ML - UH [id number] [place] [address] Protein Test strip Ql (U) Negative Normal NEGATIVE [facility] Comment on above: Order Comment: Urine Specimen Source+ CLEAN CATCH Performed By: #### L 200.3000 ####ML - U[facility] [id number] [place] [address] URINE APPEARANC CLEAR Normal CLEAR [facility] Comment on above: Order Comment: Urine Specimen Source+ CLEAN CATCH Performed By: #### L 200.3000 ####ML - [id number] [place] [address] URINE KETONE TRACE Normal NEGATIVE [facility] Comment on above: Order Comment: Urine Specimen Source+ CLEAN CATCH Performed By: #### L 200.3000 ####ML - UH [id number] [place] [address] URINE SPECIFIC >=1.030 Normal 1.001-1.035 [facility] Comment on above: Order Comment: Urine Specimen Source+ CLEAN CATCH Performed By: #### L 200.3000 ####ML - U[facility] [id number] [place] [address] URINE UROBILINO 0.2 EU/DL Normal 0.2-1.0 [facility] Comment on above: Order Comment: Urine Specimen Source+ CLEAN CATCH Performed By: #### L 200.3000 ####ML - [facility] [id number] [place] [address] Clinical Lists Update: Clini augusto Noteon 01-04-2017 Left ventricular Ejection fraction 55 % Invalid Interpretation Code [facility] Work Phone: Microbiology: MRSA/SAID SCRE ENon 12-27-2016 MRSA+SAID SCRN . Invalid Interpretation Code [facility] Work Phone: Office Visiton 12-06-2016 Dietary management education, guidance, and counseling (procedure) yes Invalid Interpretation Code [facility] Work Phone: Documentation of current medications (procedure) Done Invalid Interpretation Code [facility] Work Phone: Tobacco smoking status NHIS Never Invalid Interpretation Code [facility] Work Phone: Tobacco use [facility] Former smoker Invalid Interpretation Code [facility] Work Phone: Clinical Lists Update: Prelo oracle solutions architect 04-29-2015 Anion gap 8 mmol/L Invalid Interpretation Code [facility] Work Phone: BUN/Creatinine Ratio 19.1 mg/mg Invalid Interpretation Code [facility] Work Phone: Calcium 8.4 mg/dL Low [facility] Work Phone: Chloride 109 mmol/L High [facility] Work Phone: CO2 24 mmol/L Invalid Interpretation Code [facility] Work Phone: Creatinine 0.79 mg/dL Invalid Interpretation Code [facility] Work Phone: Erythrocytes (RBC) 4.08 10*6/uL Low [facility] Work Phone: Glucose mass conc 112 mg/dL High [facility] Work Phone: Hematocrit (HCT) 37.0 % Low [facility] Work Phone: Hemoglobin mass conc (Bld) 11.9 g/dL Low [facility] Work Phone: Platelets 257 10*3/mm3 Invalid Interpretation Code [facility] Work Phone: Potassium molar conc 4.2 mmol/L Invalid Interpretation Code [facility] Work Phone: Sodium 141 mmol/L Invalid Interpretation Code [facility] Work Phone: Urea nitrogen 15 mg/dL Invalid Interpretation Code [facility] Work Phone: WBC (Leukocytes) 8.2 10*3/uL Invalid Interpretation Code [facility] Work Phone: Clinical Lists Update: Prelo oracle solutions architect 11-24-2014 Alanine aminotransferase (ALT) 12 U/L Invalid Interpretation Code [facility] Work Phone: Albumin 3.7 g/dL Invalid Interpretation Code [facility] Work Phone: Alkaline phosphatase (ALP) 64 U/L Invalid Interpretation Code [facility] Work Phone: Aspartate aminotransferase (AST) 15 U/L Invalid Interpretation Code [facility] Work Phone: Bilirubin (direct) 0.1 mg/dL Invalid Interpretation Code [facility] Work Phone: Bilirubin (total) 0.4 mg/dL Invalid Interpretation Code [facility] Work Phone: Cholesterol 150 mg/dL Invalid Interpretation Code [facility] Work Phone: Cholesterol to HDL Ratio 3.2 {ratio} Invalid Interpretation Code [facility] Phone: HDL Cholesterol 47 mg/dL Invalid Interpretation Code [facility] Work Phone: LDL Cholesterol 70 mg/dL Invalid Interpretation Code [facility] Phone: Protein 6.8 g/dL Invalid Interpretation Code [facility] Phone: Triglyceride 166 mg/dL High [facility] Work Phone: Office Visit: [facility] 05-07-19 15 cardiac risk group C Invalid Interpretation Code [facility] Phone: General cardiovascular disease 10Y risk [#] Andrews.D'Agostin o N/A Invalid Interpretation Code [facility] Phone: Lab Report: Basic Metabolic Profile (BMP)on 02-20-2014 eGFR (non-black) 96 mL/min/{1.73_m2} Invalid Interpretation Code >60 [facility] Phone: eGFR (non-black) 79 mL/min/{1.73_m2} Invalid Interpretation Code >60 [facility] Work Phone: Lab Report: Magnesiumon 02-09 Magnesium 1.8 mg/dL Invalid Interpretation Code 1.8-2.4 [facility] Phone: Office Visiton 01-07-2014 Smoking cessation education (procedure) yes Invalid Interpretation Code [facility] Phone: Clinical Lists Update: Prelo oracle solutions architect 11-26-2013 Creatine kinase (CK) 78 U/L Invalid Interpretation Code [facility] Phone: Erythrocyte distribution width Auto Ratio (RBC) 14.2 % Invalid Interpretation Code [facility] Phone: MCH 31.2 pg Invalid Interpretation Code [facility] Phone: MCHC mass conc (RBC) 32.4 g/dL Invalid Interpretation Code [facility] Work Phone: MCV 96.3 fL Invalid Interpretation Code [facility] Work Phone: PMV by Ramila 10.4 fL Invalid Interpretation Code [facility] Work Phone: Influenza virus A and B and SARS-CoV-2 (COVID-19) Ag panel - Upper respiratory specim SARS-CoV-2 & FLU Antigen (Rapid) SARS-CoV-2 (COVID 19) [facility] Work Phone: Vital Signs Date Time Vital Sign Value Performing Clinician Facility 08-07-2024 14:35-0400 Body height 152.[address] Dawn Rivera MD Work Phone: [facility] 08-07-2024 14:35-0400 Body mass index (BMI) [Ratio] 36 kg/m2 Dr. Dawn Rivera MD Work Phone: [facility] 08-07-2024 14:35-0400 Body weight 83.[address] Dawn Rivera MD Work Phone: [facility] 08-07-2024 14:35-0400 Diastolic blood pressure 75 mm[Hg] Dr. Dawn Rivera MD Work Phone: [facility] 08-07-2024 14:35-0400 Heart rate 85 /min Dr. Dawn Rivera MD Work Phone: [facility] 08-07-2024 14:35-0400 SaO2% (BldA) [Mass fraction] 95 % Dr. Dawn Rivera MD Work Phone: [facility] 08-07-2024 14:35-0400 Systolic blood pressure 124 mm[Hg] Dr. Dawn Rivera MD Work Phone: [facility] 08-01-2024 07:21-0400 Body mass index (BMI) [Ratio] 36.3 kg/m2 Dr. Dawn Rivera MD Work Phone: [facility] 08-01-2024 07:21-0400 Body weight 84.[address] Dawn Rivera MD Work Phone: [facility] 08-01-2024 07:21-0400 Diastolic blood pressure 82 mm[Hg] Dr. Dawn Rivera MD Work Phone: [facility] 08-01-2024 07:21-0400 Heart rate 88 /min Dr. Danw Rivera MD Work Phone: [facility] 08-01-2024 07:21-0400 Respiratory rate 18 /min Dr. Dawn Rivera MD Work Phone: [facility] 08-01-2024 07:21-0400 SaO2% (BldA) [Mass fraction] 96 % Dr. Dawn Rivera MD Work Phone: [facility] 08-01-2024 07:21-0400 Systolic blood pressure 126 mm[Hg] Dr. Dawn Rivera MD Work Phone: [facility] 06-28-2023 14:00-0400 SaO2% (BldA) [Mass fraction] 97 % Dr. Dawn Rivera Work Phone: [facility] 06-28-2023 13:58-0400 Body temperature 97.5 [degF] Dr. Dawn Rivera Work Phone: [facility] 06-28-2023 13:58-0400 Diastolic blood pressure 88 mm[Hg] Dr. Dawn Rivera Work Phone: [facility] 06-28-2023 13:58-0400 Heart rate 72 /min Dr. Dawn Rivera Work Phone: [facility] 06-28-2023 13:58-0400 Respiratory rate 16 /min Dr. Dawn Rivera Work Phone: [facility] 06-28-2023 13:58-0400 Systolic blood pressure 129 mm[Hg] Dr. Dawn Rivera Work Phone: [facility] 06-28-2023 11:00-0400 Body height 152.[address] Dawn Rivera Work Phone: [facility] 06-28-2023 11:00-0400 Body mass index (BMI) [Ratio] 41.3 kg/m2 Dr. Dawn Rivera Work Phone: [facility] 06-28-2023 11:00-0400 Body weight 96.[address] Dawn Rivera Work Phone: [facility] 06-28-2023 09:41-0400 Body mass index (BMI) [Ratio] 42.2 kg/m2 Dr. Dawn Rivera Work Phone: [facility] 06-28-2023 09:41-0400 Body temperature 97.8 [degF] Dr. Dawn Rivera Work Phone: [facility] 06-28-2023 09:41-0400 Body weight 97.[address] Dawn Rivera Work Phone: [facility] 06-28-2023 09:41-0400 Diastolic blood pressure 72 mm[Hg] Dr. Dawn Rivera Work Phone: [facility] 06-28-2023 09:41-0400 Heart rate 90 /min Dr. Dawn Rivera Work Phone: [facility] 06-28-2023 09:41-0400 SaO2% (BldA) [Mass fraction] 93 % Dr. Dawn Rivera Work Phone: [facility] 06-28-2023 09:41-0400 Systolic blood pressure 128 mm[Hg] Dr. Dawn Rivera Work Phone: [facility] 06-20-2023 10:50-0400 Body temperature 97.7 [degF] NESTOR LASSITER MD [address] [place] [address] 06-20-2023 10:50-0400 Diastolic Blood Pressure Non-Invasive 62 mm[Hg] NESTOR LASSITER MD [address] [place] [address] 06-20-2023 10:50-0400 Heart rate 77 /min NESTOR LASSITER MD [address] [place] [address] 06-20-2023 10:50-0400 Respiratory rate 18 /min NESTOR LASSITER MD [address] [place] [address] 06-20-2023 10:50-0400 Systolic Blood Pressure Non-Invasive 121 mm[Hg] NESTOR LASSITER MD [address] [place] [address] 06-20-2023 07:29-0400 Blood Pressure Cuff Size NESTOR LASSITER MD [address] [place] [address] 06-20-2023 07:29-0400 Blood Pressure Location NESTOR LASSITER MD [address] [place] [address] 06-20-2023 07:29-0400 Blood Pressure Method NESTOR LASSITER MD [address] [place] [address] 06-20-2023 07:29-0400 Body temperature 97.88 [degF] NESTOR LASSITER MD [address] [place] [address] 06-20-2023 07:29-0400 Diastolic Blood Pressure Non-Invasive 63 mm[Hg] NESTOR LASSITER MD [address] [place] [address] 06-20-2023 07:29-0400 Heart rate 77 /min NESTOR LASSITER MD [address] [place] [address] 06-20-2023 07:29-0400 Reason For Taking VItal Signs NESTOR LASSITER MD [address] [place] [address] 06-20-2023 07:29-0400 Respiratory rate 18 /min NESTOR LASSITER MD [address] [place] [address] 06-20-2023 07:29-0400 Systolic Blood Pressure Non-Invasive 128 mm[Hg] NESTOR LASSITER MD [address] [place] [address] 06-20-2023 03:06-0400 Body temperature 98.6 [degF] NESTOR LASSITER MD [address] [place] [address] 06-20-2023 03:06-0400 Heart rate 90 /min NESTOR LASSITER MD [address] [place] [address] 06-20-2023 03:06-0400 Reason For Taking VItal Signs NESTOR LASSITER MD [address] [place] [address] 06-19-2023 22:49-0400 Blood Pressure Cuff Size NESTOR LASSITER MD [address] [place] [address] 06-19-2023 22:49-0400 Blood Pressure Location NESTOR LASSITER MD [address] [place] [address] 06-19-2023 22:49-0400 Blood Pressure Method NESTOR LASSITER MD [address] [place] [address] 06-19-2023 22:49-0400 Diastolic Blood Pressure Non-Invasive 68 mm[Hg] NESTOR LASSITER MD [address] [place] [address] 06-19-2023 22:49-0400 Heart rate 82 /min NESTOR LASSITER MD [address] [place] [address] 06-19-2023 22:49-0400 Respiratory rate 17 /min NESTOR LASSITER MD [address] [place] [address] 06-19-2023 22:49-0400 Systolic Blood Pressure Non-Invasive 122 mm[Hg] NESTOR LASSITER MD [address] [place] [address] 06-19-2023 21:26-0400 Heart rate 85 /min NESTOR LASSITER MD [address] [place] [address] 06-19-2023 18:53-0400 Blood Pressure Cuff Size NESTOR LASSITER MD [address] [place] [address] 06-19-2023 18:53-0400 Blood Pressure Location NESTOR LASSITER MD [address] [place] [address] 06-19-2023 18:53-0400 Blood Pressure Method NESTOR LASSITER MD [address] [place] [address] 06-19-2023 18:53-0400 Heart rate 92 /min NESTOR LASSITER MD [address] [place] [address] 06-19-2023 16:21-0400 Reason For Taking VItal Signs NESTOR LASSITER MD [address] [place] [address] 06-19-2023 12:54-0400 Body height 149.9 cm NESTOR LASSITER MD [address] [place] [address] 06-19-2023 12:54-0400 Body weight 95.7 kg NESTOR LASSITER MD [address] [place] [address] 06-19-2023 12:54-0400 Body weight 42.59 kg/m2 NESTOR LASSITER MD [address] [place] [address] 06-19-2023 12:11-0400 Body temperature 96.8 [degF] NESTOR LASSITER MD [address] [place] [address] 06-19-2023 12:11-0400 Heart rate 88 /min NESTOR LASSITER MD [address] [place] [address] 06-19-2023 12:11-0400 Mean blood pressure 77 mm[Hg] NESTOR LASSITER MD [address] [place] [address] 06-19-2023 11:54-0400 Heart rate 90 /min NESTOR LASSITER MD [address] [place] [address] 06-19-2023 11:54-0400 Mean blood pressure 77 mm[Hg] NESTOR LASSITER MD [address] [place] [address] 06-19-2023 11:35-0400 Mean blood pressure 73 mm[Hg] NESTOR LASSITER MD [address] [place] [address] 06-19-2023 10:04-0400 Body temperature 98.06 [degF] NESTOR LASSITER MD [address] [place] [address] 06-19-2023 10:00-0400 Respiratory Rate - Anes 4 br/min NESTOR LASSITER MD [address] [place] [address] 06-19-2023 09:55-0400 Respiratory Rate - Anes 12 br/min NESTOR LASSITER MD [address] [place] [address] 06-19-2023 09:50-0400 Respiratory Rate - Anes 0 br/min NESTOR LASSITER MD [address] [place] [address] 06-19-2023 08:00-0400 Body temperature 93.06 [degF] NESTOR LASSITER MD [address] [place] [address] 06-19-2023 07:55-0400 Body temperature 93.31 [degF] NESTOR LASSITER MD [address] [place] [address] 06-19-2023 07:50-0400 Body temperature 93.7 [degF] NESTOR LASSITER MD [address] [place] [address] 06-19-2023 05:55-0400 Body height 149.9 cm NESTOR LASSITER MD [address] [place] [address] 06-19-2023 05:55-0400 Body temperature 96.98 [degF] NESTOR LASSITER MD [address] [place] [address] 06-19-2023 05:55-0400 Body weight 95.7 kg NESTOR LASSITER MD [address] [place] [address] 06-11-2023 11:49-0400 Blood Pressure Cuff Size NESTOR LASSITER MD [address] [place] [address] 06-11-2023 11:49-0400 Blood Pressure Location NESTOR LASSITER MD [address] [place] [address] 06-11-2023 11:49-0400 Blood Pressure Method NESTOR LASSITER MD [address] [place] [address] 06-11-2023 11:49-0400 Body height 150 cm NESTOR LASSITER MD [address] [place] [address] 06-11-2023 11:49-0400 Body temperature 97.52 [degF] NESTOR LASSITER MD [address] [place] [address] 06-11-2023 11:49-0400 Body weight 98 kg NESTOR LASSITER MD [address] [place] [address] 06-11-2023 11:49-0400 Body weight 43.56 kg/m2 NESTOR LASSITER MD [address] [place] [address] 06-11-2023 11:49-0400 Diastolic Blood Pressure Non-Invasive 73 mm[Hg] NESTOR LASSITER MD [address] [place] [address] 06-11-2023 11:49-0400 Heart rate 91 /min NESTOR LASSITER MD [address] [place] [address] 06-11-2023 11:49-0400 Systolic Blood Pressure Non-Invasive 114 mm[Hg] NESTOR LASSITER MD [address] [place] [address] 05-21-2023 15:52-0400 Body height 152.4 cm [facility] 05-21-2023 15:52-0400 Body weight 99.42 kg [facility] 01-17-2023 08:34-0500 Heart rate 78 /min NESTOR LASSITER MD [address] [place] [address] 01-17-2023 07:48-0500 Heart rate 78 /min NESTOR LASSITER MD [address] [place] [address] 01-17-2023 07:48-0500 Respiratory rate 20 /min NESTOR LASSITER MD [address] [place] [address] 01-17-2023 06:31-0500 Blood Pressure Cuff Size NESTOR LASSITER MD [address] [place] [address] 01-17-2023 06:31-0500 Blood Pressure Location NESTOR LASSITER MD [address] [place] [address] 01-17-2023 06:31-0500 Blood Pressure Method NESTOR LASSITER MD [address] [place] [address] 01-17-2023 06:31-0500 Body temperature 98.78 [degF] NESTOR LASSITER MD [address] [place] [address] 01-17-2023 06:31-0500 Diastolic Blood Pressure Non-Invasive 65 1 NESTOR LASSITER MD [address] [place] [address] 01-17-2023 06:31-0500 Heart rate 79 /min NESTOR LASSITER MD [address] [place] [address] 01-17-2023 06:31-0500 Reason For Taking VItal Signs NESTOR LASSITER MD [address] [place] [address] 01-17-2023 06:31-0500 Respiratory rate 18 /min NESTOR LASSITER MD [address] [place] [address] 01-17-2023 06:31-0500 Systolic Blood Pressure Non-Invasive 118 1 NESTOR LASSITER MD [address] [place] [address] 01-17-2023 04:47-0500 Heart rate 60 /min NESTOR LASSITER MD [address] [place] [address] 01-17-2023 03:20-0500 Blood Pressure Cuff Size NESTOR LASSITER MD [address] [place] [address] 01-17-2023 03:20-0500 Blood Pressure Location NESTOR LASSITER MD [address] [place] [address] 01-17-2023 03:20-0500 Blood Pressure Method NESTOR LASSITER MD [address] [place] [address] 01-17-2023 03:20-0500 Body temperature 98.06 [degF] NESTOR LASSITER MD [address] [place] [address] 01-17-2023 03:20-0500 Diastolic Blood Pressure Non-Invasive 56 1 NESTOR LASSITER MD [address] [place] [address] 01-17-2023 03:20-0500 Respiratory rate 18 /min NESTOR LASSITER MD [address] [place] [address] 01-17-2023 03:20-0500 Systolic Blood Pressure Non-Invasive 106 1 NESTOR LASSITER MD [address] [place] [address] 01-16-2023 22:42-0500 Blood Pressure Location NESTOR LASSITER MD [address] [place] [address] 01-16-2023 22:42-0500 Blood Pressure Method NESTOR LASSITER MD [address] [place] [address] 22:42-0500 Body temperature 98.6 [degF] NESTOR LASSITER MD [address] [place] [address] 01-16-2023 22:42-0500 Diastolic Blood Pressure Non-Invasive 65 1 NESTOR LASSITER MD [address] [place] [address] 22:42-0500 Reason For Taking VItal Signs NESTOR LASSITER MD [address] [place] [address] 01-16-2023 22:42-0500 Systolic Blood Pressure Non-Invasive 142 1 NESTOR LASSITER MD [address] [place] [address] 01-16-2023 19:04-0500 Reason For Taking VItal Signs NESTOR LASSITER MD [address] [place] [address] 01-16-2023 14:51-0500 Blood Pressure Cuff Size NESTOR LASSITER MD [address] [place] [address] 01-16-2023 08:36-0500 Heart rate 78 /min NESTOR LASSITER MD [address] [place] [address] 01-15-2023 18:43-0500 Heart rate 89 /min NESTOR LASSITER MD [address] [place] [address] 01-15-2023 08:22-0500 Heart rate 76 /min NESTOR LASSITER MD [address] [place] [address] 01-15-2023 02:35-0500 Heart rate 64 /min NESTOR LASSITER MD [address] [place] [address] 01-14-2023 22:33-0500 Heart rate 65 /min NESTOR LASSITER MD [address] [place] [address] 01-14-2023 06:31-0500 Mean blood pressure 78 mm[Hg] NESTOR LASSITER MD [address] [place] [address] 01-14-2023 01:55-0500 Body height 152.4 cm NESTOR LASSITER MD [address] [place] [address] 01-14-2023 01:55-0500 Body weight 105.9 kg NESTOR LASSITER MD [address] [place] [address] 01-14-2023 01:55-0500 Body weight 45.6 kg/m2 NESTOR LASSITER MD [address] [place] [address] 01-14-2023 01:52-0500 Body temperature 97.52 [degF] NESTOR LASSITER MD [address] [place] [address] 01-14-2023 01:48-0500 Body height 152.4 cm NESTOR LASSITER MD [address] [place] [address] 01-14-2023 01:48-0500 Body weight 105.9 kg NESTOR LASSITER MD [address] [place] [address] 01-14-2023 01:48-0500 Body weight 45.6 kg/m2 NESTOR LASSITER MD [address] [place] [address] 01-14-2023 01:20-0500 Mean blood pressure 87 mm[Hg] NESTOR LASSITER MD [address] [place] [address] 01-14-2023 01:01-0500 Body temperature 97.16 [degF] NESTOR LASSITER MD [address] [place] [address] Comment on above: Result Comment: Daylight Savings Time 01-14-2023 01:01-0500 Mean blood pressure 84 mm[Hg] NESTOR LASSIETR MD [address] [place] [address] 01-14-2023 00:37-0400 Diastolic blood pressure 59 mm[Hg] NESTOR LASSITER MD [address] [place] [address] 01-14-2023 00:37-0400 Mean blood pressure 77 mm[Hg] NESTOR LASSITER MD [address] [place] [address] 01-14-2023 00:37-0400 Systolic blood pressure 126 mm[Hg] NESTOR LASSITER MD [address] [place] [address] 01-14-2023 00:20-0400 Diastolic blood pressure 62 mm[Hg] NESTOR LASSITER MD [address] [place] [address] 01-14-2023 00:20-0400 Mean blood pressure 81 mm[Hg] NESTOR LASSITER MD [address] [place] [address] 01-14-2023 00:20-0400 Systolic blood pressure 134 mm[Hg] NESTOR LASSITER MD [address] [place] [address] 01-14-2023 00:10-0400 Respiratory Rate - Anes 0 br/min NESTOR LASSITER MD [address] [place] [address] 01-14-2023 00:07-0400 Diastolic blood pressure 63 mm[Hg] NESTOR LASSITER MD [address] [place] [address] 01-14-2023 00:07-0400 Mean blood pressure 80 mm[Hg] NESTOR LASSITER MD [address] [place] [address] 01-14-2023 00:07-0400 Systolic blood pressure 130 mm[Hg] NESTOR LASSITER MD [address] [place] [address] 01-14-2023 00:05-0400 Body temperature 97.88 [degF] NESTOR LASSITER MD [address] [place] [address] 01-14-2023 00:05-0400 Respiratory Rate - Anes 0 br/min NESTOR LASSITER MD [address] [place] [address] 01-14-2023 00:00-0400 Respiratory Rate - Anes 8 br/min NESTOR LASSITER MD [address] [place] [address] 01-13-2023 23:10-0400 Body temperature 98.78 [degF] NESTOR LASSITER MD [address] [place] [address] 01-13-2023 23:05-0400 Body temperature 99.03 [degF] NESTOR LASSITER MD [address] [place] [address] 01-13-2023 23:00-0400 Body temperature 99.16 [degF] NESTOR LASSITER MD [facility] 01-13-2023 11:10-0400 Body weight 105.9 kg NESTOR LASSITER MD [facility] 02-23-2022 11:24-0500 Body height 149.[address] Dawn Rivera Work Phone: [facility] Work Phone: 12-25-2021 15:52-0400 SaO2% (BldA) [Mass fraction] 96 % [facility] Work Phone: 12-25-2021 14:30-0400 Diastolic blood pressure 90 mm[Hg] [facility] Work Phone: 12-25-2021 14:30-0400 Heart rate 82 /min [facility] Work Phone: 12-25-2021 14:30-0400 Respiratory rate 15 /min [facility] Work Phone: 12-25-2021 14:30-0400 Systolic blood pressure 175 mm[Hg] [facility] Work Phone: 12-25-2021 13:30-0400 Body height 149.86 cm [facility] Work Phone: 12-25-2021 13:30-0400 Body mass index (BMI) [Ratio] 50.5 kg/m2 [facility] Work Phone: 12-25-2021 13:30-0400 Body temperature 97.8 [degF] [facility] Work Phone: 12-25-2021 13:30-0400 Body weight 113.39 kg [facility] Work Phone: 09-01-2016 16:10-0400 BMI (Body Mass Index) 37.49 kg/m2 [facility] Work Phone: 09-01-2016 16:10-0400 BP Diastolic 60 mm[Hg] [facility] Work Phone: 09-01-2016 16:10-0400 BP Systolic 106 mm[Hg] [facility] Work Phone: 09-01-2016 16:10-0400 Height 152.4 cm [facility] Work Phone: 09-01-2016 16:10-0400 Pulse (Heart Rate) 66 /min [facility] Work Phone: 09-01-2016 16:10-0400 Respiratory Rate 18 /min [facility] Work Phone: 09-01-2016 16:10-0400 Weight 87.09 kg [facility] Phone: 03-01-2016 13:26-0500 BSA (Body Surface Area) 1.86 m2 [facility] Work Phone: 11-12-2014 13:06-0400 Pulse Oximetry 96 % [facility] Phone: Encounters Encounter Date Encounter Type Care Provider Facility Start: 09-04-2024 Non-patient / Non-visit Clotilde RAMAN -[facility] Work Phone: Start: 09-04-2024 ambulatory Dawn Rivera Facility: [facility] Start: 09-04-2024 End: 09-04-[address] Dawn Rivera MD Work Phone: -Outpatient Bone Densitometry Start: 09-04-2024 End: 09-04-[address] Dawn Rivera MD -[facility] Work Phone: Start: 09-03-2024 End: 09-04-2024 ambulatory Dawn Rivera Facility:[facility] Start: 09-03-2024 Non-patient / Non-visit Dr. Aníbal BORGES -[facility] Start: 09-02-2024 End: 09-02-[address] Dawn Rivera MD Work Phone: -Cardiovascular Services Start: 09-02-2024 End: 09-02-2024 Patient encounter procedure Clotilde Rendon TAPE SEWING MACHINE OPERATOR-C -[facility] Services Work Phone: Start: 09-02-2024 End: 09-02-2024 ambulatory Clotilde Rendon TAPE SEWING MACHINE OPERATOR Facility:[facility] Start: 08-07-2024 End: 08-07-2024 Patient encounter procedure Dinorah Swift TAPE SEWING MACHINE OPERATOR-C -[facility] Work Phone: Start: 08-07-2024 End: 08-07-[address] Dawn Rivera MD Work Phone: [facility] Work Phone: Start: 08-01-2024 End: 08-01-2024 Patient encounter procedure Clotilde Rendon TAPE SEWING MACHINE OPERATOR-C -[facility] Work Phone: Start: 08-01-2024 End: 08-01-2024 ambulatory Dawn Miedel Facility:[facility] Start: 01-25-2024 End: 01-25-2024 ambulatory Dawn Miedel Facility:[facility] Start: 01-17-2024 End: 01-17-2024 ambulatory Dawn Miedel Facility:[facility] Start: 01-10-2024 ambulatory Dawn Miedel Facility: [facility] Start: 10-30-2023 End: 10-30-2023 ambulatory DINORAH SWIFT [facility] Start: 09-14-2023 End: 09-14-2023 ambulatory SIMIN ALTMAN MATERIAL LIAISON-SEAT COVER CUTTER Facility:[facility] Start: 09-14-2023 End: 09-14-2023 Patient encounter procedure SIMIN ALTMAN MATERIAL LIAISON-SEAT COVER CUTTER [facility] Start: 07-30-2023 End: 07-30-2023 ambulatory SIMIN ALTMAN MATERIAL LIAISON-SEAT COVER CUTTER Facility:[facility] Start: 07-30-2023 End: 07-30-2023 Patient encounter procedure SIMIN ALTMAN MATERIAL LIAISON-SEAT COVER CUTTER [facility] Start: 07-02-2023 End: 07-02-2023 ambulatory NESTOR LASSITER MD Facility:[facility] Start: 07-02-2023 End: 07-02-2023 Patient encounter procedure NESTOR LASSITER MD [facility] Start: 06-28-2023 End: 06-28-2023 Emergency department patient visit Dr. Dawn Rivera Work Phone: [facility]Emergency Department Work Phone: Start: 06-28-2023 End: 06-28-[address] Dawn Rivera Work Phone: [facility] Work Phone: Start: 06-19-2023 End: 06-20-2023 Evaluation and management of inpatient NESTOR LASSITER MD [facility] Start: 06-11-2023 End: 06-11-2023 Admission to establishment NESTOR LASSITER MD [facility] Start: 06-11-2023 End: 06-11-2023 ambulatory NESTOR LASSITER MD Facility:[facility] Start: 06-11-2023 End: 06-11-2023 ambulatory SIMIN ALTMAN MATERIAL LIAISON-SEAT COVER CUTTER Facility:[facility] Start: 06-11-2023 End: 06-11-2023 Patient encounter procedure SIMIN ALTMAN MATERIAL LIAISON-SEAT COVER CUTTER [facility] Start: 05-21-2023 End: 06-10-2023 ambulatory [facility] Work Phone: Start: 05-21-2023 End: 06-10-2023 [facility] Start: 05-21-2023 Registered [facility]ring [facility] Work Phone: Start: 05-17-2023 End: 05-17-2023 ambulatory [facility] Work Phone: Start: 05-17-2023 End: 05-17-2023 Patient encounter procedure [facility]Ferdinand Adameseye [facility] Start: 05-11-2023 End: 05-11-2023 ambulatory NESTOR LASSITER MD Facility:[facility] Start: 05-11-2023 End: 05-11-2023 Patient encounter procedure NESTOR LASSITER MD [facility] Start: 05-03-2023 End: 05-03-2023 ambulatory NESTOR LASSITER MD Facility:[facility] Start: 05-03-2023 End: 05-03-2023 Patient encounter procedure NESTOR LASSITER MD [facility] Start: 04-18-2023 End: 04-18-2023 ambulatory NESTOR LASSITER MD Facility:[facility] Start: 02-14-2023 End: 02-14-2023 ambulatory NESTOR LASSITER MD Facility:[facility] Start: 02-14-2023 End: 02-14-2023 Encounter for other specified special examinations NESTOR LASSITER MD Facility:[facility] Start: 02-05-2023 End: 02-05-2023 ambulatory NESTOR LASSITER MD Facility:[facility] Start: 02-05-2023 End: 02-05-2023 Patient encounter procedure NESTOR LASSITER MD [facility] Start: 01-29-2023 End: 01-29-2023 ambulatory NESTOR LASSITER MD Facility:[facility] Start: 01-29-2023 End: 01-29-2023 Patient encounter procedure NESTOR LASSITER MD [facility] Start: 01-17-2023 End: 02-26-2023 ambulatory FREDDY BORGES [facility] Start: 01-13-2023 End: 01-17-2023 Evaluation and management of inpatient NESTOR LASSITER MD [facility] Start: 01-13-2023 End: 01-13-2023 Emergency department patient visit JOHAN ESCAMILLA [facility] Start: 03-02-2022 End: 03-02-[address] Dawn Rivera Work Phone: [facility] Work Phone: Start: 03-02-2022 End: 03-02-[address] Dawn Rivera Work Phone: [facility] Start: 03-02-2022 End: 03-02-[address] Dawn Rivera Work Phone: [facility] Start: 12-25-2021 End: 12-25-2021 Emergency department patient visit [facility] Start: 03-12-2018 End: 03-12-2018 Emergency department patient visit XIOMARA CASTAÑEDA Facility:[facility] Start: 03-06-2018 End: 03-07-2018 Emergency department patient visit BLAINE Vaughan CINTIA Facility:[facility] Start: 05-11-2017 End: 05-13-2018 Patient encounter procedure ROXANA-CHI ZOYA Facility: Procedures Date Procedure Procedure Detail Performing Clinician Start: 09-04-2024 Dual energy X-ray absorptiometry Dr. Dawn Rivera MD Work Phone: Start: 09-02-2024 Cardiovascular stres s test using pharmacologic stress agent Dr. Dawn Rivera MD Work Phone: Start: 06-28-2023 CT of abdomen and pe lvis without contrast Dr. Dawn Rivera Work Phone: Start: 06-19-2023 Structure of vertebr al column (body structure) NESTOR LASSITER MD Comment on above: Left T12 PSF, possib le extension to T11. Start: 02-06-2023 Urinalysis JOHAN SWANN Comment on above: Result Comment: URIN ALYSIS Performed By: #### [id number] #### [facility],[address] [place] [address] Start: 01-16-2023 Laminectomy NESTOR LASSITER MD Comment [...] coronary artery stent placement Comment on above: AKQ-SBZ-Qwr-Distal L Cx w/ 2.0 x 20 mm Promus Premier Stent 11/25/13; KNG-QIQ-Zaoizq LCx w/ 2.50 x 16 mm Synergy 02/10/2019 Start: 03-12-2018 Electrocardiogram NAILA ESTRADAL Start: 09-01-2016 End: 12-05-2016 Follow Up Appt 1 year Seun Blair MD Start: 09-01-2016 End: 12-05-2016 MMMulugeta Blair MD Start: 03-01-2016 End: 03-01-2016 STRUCTURES ASSEMBLER Rupa Alexis PA-C Work Phone: Start: 03-01-2016 [...] Seun Blair MD Start: 11-12-2014 End: 11-12-2014 TRINA Blair MD Start: 05-07-2014 End: 05-07-2014 STRUCTURES ASSEMBLER Rupa Alexis PA-C Work Phone: Start: 05-07-2014 [...] Date Care Activity Detail Author Start: 12-25-2021 [facility] Work Phone: Start: 08-31-2017 End: 08-31-2017 Appointment Appointment [facility] Work Phone: Start: 01-18-2017 End: 01-18-2017 Appointment Appointment [facility] Work Phone: Start: 01-15-2017 End: 01-15-2017 Appointment Appointment [facility] Work Phone: Start: 09-01-2016 End: 09-01-2016 *Hepatic Function Panel *Hepatic Function Panel [facility] Work Phone: Start: 09-01-2016 End: 12-05-2016 Follow Up Appt 1 year Follow Up Appt 1 year [facility] Phone: Start: 09-01-2016 End: 09-01-2016 Lipid panel [AGGREGATE] *Lipid Profile CC PCP [facility] Phone: Start: 09-01-2016 End: 12-05-2016 MMM MMM [facility] Work Phone: Start: 08-16-2016 End: 08-16-2016 Physical Therapy General [facility], [address] [place] [address], [id number] [facility] Phone: Start: 06-21-2016 End: 06-21-2016 Mri any jt upper extremity w/o contrast matrl MRI Joint Upper Extremity [facility] Phone: Start: 03-01-2016 End: 03-01-2016 *Hepatic Function Panel *Hepatic Function Panel [facility] Phone: Start: 03-01-2016 End: 03-01-2016 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 [facility] Phone: Start: 03-01-2016 End: 03-01-2016 Follow Up Appt 6 months Follow Up Appt 6 months [facility] Phone: Start: 03-01-2016 End: 03-01-2016 Lipid panel [AGGREGATE] *Lipid Profile CC PCP [facility] Work Phone: Start: 12-30-2015 End: 12-30-2015 Radiologic exam knee complete 4/more views X-Ray, Knee [facility] Work Phone: Start: 09-02-2015 End: 09-02-2015 Follow Up Appt 6 months Follow Up Appt 6 months [facility] Work Phone: Start: 09-02-2015 End: 09-02-2015 MMM MMM [facility] Work Phone: Start: 05-25-2015 End: 02-17-2016 *Hepatic Function Panel *Hepatic Function Panel [facility] Work Phone: Start: 05-25-2015 End: 02-17-2016 Lipid panel [AGGREGATE] *Lipid Profile CC PCP [facility] Phone: Start: 05-03-2015 End: 04-30-2015 Left Heart Cath Left Heart Cath [facility] Work Phone: Start: 11-12-2014 End: 11-24-2014 *Hepatic Function Panel *Hepatic Function Panel [facility] Work Phone: Start: 11-12-2014 End: 11-12-2014 Follow Up Appt 6 months Follow Up Appt 6 months [facility] Work Phone: Start: 11-12-2014 End: 11-24-2014 Lipid panel [AGGREGATE] *Lipid Profile CC PCP [facility] Work Phone: Start: 11-12-2014 End: 11-12-2014 MMM MMM [facility] Work Phone: Start: 05-07-2014 End: 05-07-2014 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 [facility] Work Phone: Start: 05-07-2014 End: 05-07-2014 Follow Up Appt 6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
--- NOTE | 2025-01-23 20:11 | ED.VIS.DYS ---
HPI History of Present Illness Chief Complaint: Cough Narrative Narrative: 64-year-old female past medical history of COPD, quit smoking in 2013, diabetes, hypothyroidism, hypertension, presents with cough, shortness of breath, and had an chest cold that she has had since Sunday, approximately 4 days ago. She relates history that it started with a fever and nasal congestion with a runny nose. It went deep into her chest. She now has a cough with green sputum production. Her fever resolved but she feels somewhat short of breath. She uses albuterol MDI but has not used it within the last few hours. She presents with head and chest cold for the last 3 to 4 days. No exacerbating or alleviating factors. [facility] Medical History Diabetes Fracture of right distal radius COVID-19 virus detected (12/25/19) Chronic diastolic heart failure Obstructive sleep apnea Obesity Depression GERD (gastroesophageal reflux disease) Hypothyroidism Osteoarthritis Essential (primary) hypertension Nicotine dependence in remission Atherosclerosis of coronary artery of [place] heart without angina pectoris Pulmonary hypertension Stage 2 moderate COPD by GOLD classification Hyperlipidemia Other peripheral vascular disease Non-ST elevated myocardial infarction (non-STEMI) (02/08/19) Supraventricular tachycardia Home Medications Medication Instructions Recorded Last Taken Type citalopram 20 mg tablet 20 mg PO QHS ANTIDEPRESSANT 07/11/16 02/07/19 History aspirin 81 mg tablet,delayed 81 mg PO DAILY 06/11/17 02/08/19 History release omeprazole 20 mg capsule,delayed 20 mg PO DAILY REFLUX 06/11/17 02/07/19 History release cyclobenzaprine 10 mg tablet 10 mg PO QHS 02/08/19 02/07/19 History furosemide 20 mg tablet (Lasix) 20 mg PO DAILY 04/04/22 Unknown History levothyroxine 125 mcg tablet 125 mcg PO QDAY 06/28/23 Unknown History metoprolol succinate 50 mg 50 mg PO DAILY 10/11/23 Unknown History tablet,extended release 24 hr semaglutide (weight loss) 0.5 0.5 mg (0.5 mL) subcut QWEEK #2 mL 03/07/24 01/19/25 Rx mg/0.5 mL subcutaneous pen injector cholecalciferol (vitamin D3) 50 50 mcg PO QDAY 08/07/24 Unknown History mcg (2,000 unit) capsule ferrous fumarate 325 mg (106 mg 325 mg PO QDAY 08/07/24 Unknown History iron) tablet atorvastatin 40 mg tablet 40 mg PO QHS #90 tabs 10/23/24 Unknown Rx albuterol sulfate 90 mcg/actuation 1 inh inhalation Q6H PRN sob 01/23/25 Unknown History aerosol inhaler (Ventolin HFA) albuterol sulfate 90 mcg/actuation 1 - 2 puff inhalation Q4H PRN PRN 01/24/25 Unknown Rx aerosol inhaler (Ventolin HFA) Wheezing #1 ea prednisone 20 mg tablet 40 mg (2 x 20 mg) PO DAILY 7 days 01/24/25 Unknown Rx #14 tabs Allergy/AdvReac Type Severity Reaction Status Date / Time No Known Allergies Allergy Verified 01/23/25 19:31 Surgical History History of tubal ligation History of left knee replacement (04/17/17) History of coronary artery stent placement (02/10/19) Social History Smoking Status: Former smoker pack-years: 37 Tobacco: How many years used: 37 second hand exposure: No alcohol intake: never substance use type: does not use caffeine: No ROS ROS ED ROS Narrative Review of systems positive for fever-resolved. Nasal congestion and runny nose. Positive cough with green sputum production. Positive shortness of breath with history of COPD. No chest pain. No exacerbating or alleviating factors. EXAM Physical Exam Narrative Exam Narrative: Afebrile. Vital signs noted. Nontoxic-appearing. Cardiovascular examination reveals mild tachycardia. Lungs are clear to auscultation bilaterally without wheezing, moving a good amount of air. Decreased breath sounds bilateral bases with slightly prolonged expiratory phase. Abdomen soft and nontender with normoactive bowel sounds. HEENT does show nasal congestion but airway patent. Neurological examination nonfocal, nonlateralizing. Const Vital Signs: 01/23/25 19:29 01/23/25 19:31 01/23/25 19:50 Temperature 98.5 F 98.5 F Temperature Source Oral Oral Pulse Rate 111 H 111 H Respiratory Rate 26 H 26 H Respiratory Effort Normal Non-Labored Respiratory Depth Normal Respiratory Pattern Normal Blood Pressure 155/81 H 155/81 H Blood Pressure Mean 105 105 Pulse Ox 96 95 Oxygen Delivery Method Room Air Room Air Room Air 01/23/25 20:21 01/23/25 21:28 01/23/25 22:00 Temperature 98.1 F 97.8 F Temperature Source Oral Oral Pulse Rate 102 H 94 95 Respiratory Rate 22 H 21 H 26 H Respiratory Effort Respiratory Depth Respiratory Pattern Tachypnea Blood Pressure 128/77 H 114/70 Blood Pressure Mean 94 84 Pulse Ox 97 95 Oxygen Delivery Method Room Air Room Air 01/23/25 23:28 01/23/25 23:46 Temperature Temperature Source Pulse Rate 94 94 Respiratory Rate 18 18 Respiratory Effort Respiratory Depth Respiratory Pattern Normal Blood Pressure 134/75 H Blood Pressure Mean 94 Pulse Ox 94 Oxygen Delivery Method Room Air MDM MDM MDM Narrative Medical decision making narrative: The differential diagnosis includes but not limited to viral syndrome including COVID versus influenza versus RSV. She may have pneumonia versus bronchitis. Pulse ox is 95 to 96% on room air without evidence of hypoxia. She be given a DuoNeb aerosolized treatment. Chest x-ray and 1 view will be obtained as well as EKG. I will obtain a CBC and a BMP as well as baseline measurement of laboratory work. EKG was obtained and interpreted by myself independently as normal sinus rhythm at 98 bpm without ectopy or acute ST changes. No STEMI. I reviewed her laboratory work and she has slight leukocytosis of 11.3 which I think is nonspecific, normal hemoglobin of 12.9 and hematocrit 38.9, platelet count normal at 288. BMP is grossly unremarkable except for glucose of 125 with a normal ion gap of 13, normal BUN and creatinine. Chest x-ray in 1 view interpreted by myself shows no evidence of a consolidation or pneumothorax. I do not feel antibiotics are indicated. On repeat examination, she is feeling improved. Her respiratory swab is negative for COVID, influenza, and RSV. I do not feel she needs antivirals. She was given a prednisone loading dose of 60 mg orally here which she has taken previously. She felt like she needed another aerosolized treatment so she was administered another DuoNeb. Her ambulatory pulse ox however, remained 92% or above. At this point in time, I do not feel she requires observation or admission. She was written prescriptions for remaining prednisone burst for 7 days of 40 mg as well as an albuterol inhaler. I feel she can be discharged safely home with follow-up. The patient will be signed out to the [facility] physician to check the radiology report, then disposition the patient. Disposition is pending but patient in stable condition. History & Record Review Discussion w/independent historian: Patient Additional record(s) reviewed:: Prior ED visit Lab Data Attestation: I reviewed the patient's lab results. Labs: Laboratory Results - last 24 hr 01/23/25 20:05 WBC 11.3 H RBC 4.23 Hgb 12.9 Hct 38.9 MCV 92.0 MCH 30.5 MCHC 33.2 RDW Std Deviation 43.3 RDW Coeff of Shaylee 12.9 Plt Count 288 MPV 9.9 Immature Gran % (Auto) 0.400 Neut % (Auto) 69.0 Lymph % (Auto) 22.0 Williams % (Auto) 7.4 Eos % (Auto) 0.9 Baso % (Auto) 0.3 Absolute Neuts (auto) 7.8 H Absolute Lymphs (auto) 2.48 Nucleated RBC % 0 Sodium 138 Potassium 3.7 Chloride 101 Carbon Dioxide 24.1 Anion Gap 13 BUN 14 Creatinine 0.81 Estim Creat Clear Calc 67.29 Est GFR (MDRD) Non-Af 80 BUN/Creatinine Ratio 17.0 Glucose 125 H Calcium 9.5 Radiography Chest X-Ray - ED: 1 View, Read by ED Physician, Read by Radiologist and No Infiltrates Discharge Plan Triage Chief Complaint: Cough ED Provider: Ricardo Pacheoc Dx/Rx/DC Orders Clinical Impression: COPD with acute bronchitis, Dyspnea, URI (upper respiratory infection) Instructions: ED Bronchitis, No Antibiotic (Adult), ED COPD Flare, ED Dyspnea Prescriptions: New prednisone 20 mg tablet 40 mg PO DAILY 7 Days Qty: 14 0RF albuterol sulfate [Ventolin HFA] 90 mcg/actuation HFA aerosol inhaler 1 - 2 puff inhalation Q4H PRN PRN (Reason: Wheezing) Qty: 1 0RF No Action furosemide [Lasix] 20 mg tablet 20 mg PO DAILY levothyroxine 125 mcg tablet 125 mcg PO QDAY metoprolol succinate 50 mg tablet extended release 24 hr 50 mg PO DAILY ferrous fumarate 325 mg (106 mg iron) tablet 325 mg PO QDAY cholecalciferol (vitamin D3) 50 mcg (2,000 unit) capsule 50 mcg PO QDAY citalopram 20 MG tablet 20 mg PO QHS Patient Comments: DEPRESSION omeprazole 20 MG capsule,delayed release(DR/EC) 20 mg PO DAILY aspirin 81 MG tablet,delayed release (DR/EC) 81 mg PO DAILY cyclobenzaprine 10 MG tablet 10 mg PO QHS albuterol sulfate [Ventolin HFA] 90 mcg/actuation HFA aerosol inhaler 1 inh inhalation Q6H PRN (Reason: sob) semaglutide (weight loss) 0.5 mg/0.5 mL pen injector 0.5 mg subcut QWEEK Qty: 2 0RF Rx Instructions: administer weeks 1 through 4 of therapy atorvastatin 40 mg tablet 40 mg PO QHS Qty: 90 3RF Primary Care Provider: Dawn Rivera Referrals: Dawn Rivera MD [Primary Care Provider, Family Practice] - 3-5 Days if not improving Activity Restrictions/Additional Instructions: Prednisone as directed. Use your albuterol inhaler 1 to 2 puffs inhaled every 4-6 hours as needed for shortness of breath. Return to the emergency department with increased difficulty breathing, new or worsening symptoms. Print Language: Kazakh Disposition Disposition: Home, Self Care
--- NOTE | 2025-01-23 20:12 | EKG12_ITS ---
Test Reason : DYSRHYTHMIA Blood Pressure : */* mmHG Vent. Rate : 98 BPM Atrial Rate : 98 BPM P-R Int : 124 ms QRS Dur : 70 ms QT Int : 344 ms P-R-T Axes : 56 11 46 degrees QTcB Int : 439 ms Normal sinus rhythm Low voltage QRS Borderline ECG Confirmed by CHAYITO BORGES, DOLORES ([id number]), online editor HERMAN THOMPSON ([id number]) on 01/26/2025 8:20:20 AM Referred By: Confirmed By: DOLORES STRATTON MD
[2025-01-23 20:26] LABS: Hematocrit 38.9 % (37-47); Hemoglobin 12.9 g/dL (12.0-15.0); Immature Granulocytes Count 0.040 X10^3/uL (0.0-0.0); Mean Corp Hgb Conc 33.2 g/dL (32-36); Mean Corpuscular Volume 92.0 fL (81-99); Mean Platelet Vol. 9.9 fl (6.2-12.0); NRBC Flagged by Analyzer 0 % (0-5); Platelet Count 288 K/mm3 (150-450); RBC Distribution Width CV 12.9 % (11.6-14.6); RBC Distribution Width SD 43.3 fl (35.1-43.9); Red Blood Count 4.23 M/mm3 (4.2-5.4); White Blood Count 11.3 K/mm3 (4.4-11.0)
--- NOTE | 2025-01-23 20:54 | RAD_ITS ---
PROCEDURE: CHEST 1 VIEW (PORTABLE) 01/23/2025 REASON FOR EXAM: SHORTNESS OF BREATH, COUGH TECHNIQUE: Frontal view of the chest. COMPARISON: Chest radiograph January 23, 2025 FINDINGS: Hardware: EKG lead wires project over the chest. Heart: Heart size is normal. Lungs: Right lung is clear and expanded. The lateral left hemidiaphragm is obscured and is not smooth suggesting small passive airspace disease in the lateral left lower zone Bones: No acute osseous abnormality. RAD/Chest 1 View (Portable) IMPRESSION: Suspect for small patch of airspace disease left lower lobe laterally. Reading Location: [facility]
[2025-01-23 20:55] LABS: Anion Gap 13 (5-15); BUN 14 mg/dL (4-19); BUN/Creat Ratio 17.0 RATIO (10-20); Calcium,Total 9.5 mg/dL (7.6-11.0); Carbon Dioxide 24.1 mmol/L (21.0-32.0); Chloride 101 mmol/L (98-108); Estimated Creatinine Clearance 67.29 ml/min (50-250); Glucose 125 mg/dL (70-99); Potassium 3.7 mmol/L (3.3-5.1)
[2025-01-24 02:24] VITALS: BP 111/61; PULSE 80; RESP 18; TEMP 36.6; O2SAT 100
== END 2025-01-24 02:25 | disposition home or self-care (01) ==
PROVIDERS: Emergency Provider Emergency Medicine; PCP Family Medicine; Visit Provider Emergency Medicine
DX: R05.9 Cough, unspecified (principal); I11.0 Hypertensive heart disease with heart failure; I50.32 Chronic diastolic (congestive) heart failure; J44.0 Chronic obstructive pulmonary disease with (acute) lower respiratory infection; E11.9 Type 2 diabetes mellitus without complications; E78.5 Hyperlipidemia, unspecified; Z87.891 Personal history of nicotine dependence; I25.10 Atherosclerotic heart disease of native coronary artery without angina pectoris; I25.2 Old myocardial infarction; F32.A Depression, unspecified; Z79.899 Other long term (current) drug therapy; K21.9 Gastro-esophageal reflux disease without esophagitis; Z79.82 Long term (current) use of aspirin; Z79.85 Long-term (current) use of injectable non-insulin antidiabetic drugs; Z98.51 Tubal ligation status; Z96.652 Presence of left artificial knee joint; Z95.5 Presence of coronary angioplasty implant and graft; J40 Bronchitis, not specified as acute or chronic; R06.00 Dyspnea, unspecified; J06.9 Acute upper respiratory infection, unspecified
CPT/HCPCS: 71045; 80048; 85025; 87631; 93005; 94640; 99283; A4216